=== PATIENT | female | born 1995 | race Caucasian/White ===

== ENCOUNTER → 2022-06-08 | Outpatient (CLI) | payer OTHER, SELFPAY ==
[2022-06-08 11:33] LABS: Amphetamine Urine VISTA NEGATIVE (<1000 ng/mL); Barbiturate Urine VISTA NEGATIVE (< 200 ng/mL); Benzodiazepine Urine VISTA NEGATIVE (< 200 ng/mL); Cocaine Urine VISTA NEGATIVE (< 300 ng/mL); Ecstacy Urine VISTA NEGATIVE (< 500 ng/mL); Methadone Urine VISTA NEGATIVE (< 300 ng/mL); PCP Urine VISTA NEGATIVE (< 25 ng/mL); THC Urine VISTA NEGATIVE (< 50 ng/mL); Vista UDS pH Range 7
[2022-06-09 21:07] LABS: Chlamydia By Nucleic Acid AMP Negative (Negative)
[2022-06-10 12:27] LABS: Gonococcus By Nucleic Acid AMP Negative (Negative)
[2022-06-14 17:34] LABS: HPV Reflexed? NOT INDICATED
== END | disposition home or self-care (01) ==
PROVIDERS: PCP Nurse Practitioner Family; Visit Provider Obstetrics & Gynecology
DX: Z34.00 Encounter for supervision of normal first pregnancy, unspecified trimester (principal)
CPT/HCPCS: 80307; 87086; 87491; 87591; 88175; G0145

== ENCOUNTER → 2022-07-04 | Outpatient (CLI) | payer OTHER, SELFPAY ==
[2022-07-04 16:02] LABS: Absolute Lymphocyte Count 1.95 X10^3/uL (0.83-4.51); Absolute Neutrophil Count 7.3 X10^3/uL (2.0-7.7); Basophil# 0.05 X10^3/uL; Basophil% 0.5 % (0-1); Eosinophil# 0.14 X10^3/uL; Eosinophils% 1.3 % (0-5); Hematocrit 34.9 % (37-47); Hemoglobin 12.4 g/dL (12.0-15.0); Lymphocyte # 1.95 X10^3/ul (0.83-4.51); Lymphocyte % 18.7 % (19-41); Mean Corp Hgb Conc 35.5 g/dL (32-36); Mean Corpuscular Hgb 32.9 pg (27.0-32.0); Mean Corpuscular Volume 92.6 fL (81-99); Mean Platelet Vol. 9.6 fl (6.2-12.0); Monocyte# 0.94 X10^3/uL; NRBC Flagged by Analyzer 0 % (0-5); Neutrophil # 7.32 X10^3/uL (2.7-7.7); Platelet Count 346 K/mm3 (150-450); RBC Distribution Width SD 43.5 fl (35.1-43.9); Red Blood Count 3.77 M/mm3 (4.2-5.4); White Blood Count 10.5 K/mm3 (4.4-11.0)
[2022-07-04 17:04] LABS: Bilirubin, Direct 0.26 mg/dL (0.00-0.30)
[2022-07-05 08:58] LABS: HIV - WCH Non-Reactive (Nonreactive); Hepatitis B Surface Antigen Non-Reactive (Nonreactive); Hepatitis C Antibody Non-Reactive (Nonreactive); Rubella IgG Reactive (Nonreactive); Syphilis Antibodies Non-reactive
== END | disposition home or self-care (01) ==
LOC: LAB 14:44
PROVIDERS: PCP Nurse Practitioner Family; Referring Provider Obstetrics & Gynecology; Visit Provider Obstetrics & Gynecology
DX: Z34.00 Encounter for supervision of normal first pregnancy, unspecified trimester (principal)
CPT/HCPCS: 36415; 82247; 82248; 85025; 86703; 86762; 86780; 86803; 86850; 86900; 86901; 87340

== ENCOUNTER → 2022-10-27 | Outpatient (CLI) | payer OTHER, SELFPAY ==
[2022-10-27 08:50] LABS: Absolute Lymphocyte Count 1.34 X10^3/uL (0.83-4.51); Absolute Neutrophil Count 7.5 X10^3/uL (2.0-7.7); Basophil# 0.03 X10^3/uL; Basophil% 0.3 % (0-1); Eosinophil# 0.07 X10^3/uL; Eosinophils% 0.7 % (0-5); Hematocrit 29.8 % (37-47); Hemoglobin 10.3 g/dL (12.0-15.0); Lymphocyte # 1.34 X10^3/ul (0.83-4.51); Lymphocyte % 13.5 % (19-41); Mean Corp Hgb Conc 34.6 g/dL (32-36); Mean Corpuscular Hgb 32.8 pg (27.0-32.0); Mean Corpuscular Volume 94.9 fL (81-99); Mean Platelet Vol. 9.4 fl (6.2-12.0); Monocyte# 0.74 X10^3/uL; Monocyte% 7.5 % (0-10); NRBC Flagged by Analyzer 0 % (0-5); Neutrophil # 7.53 X10^3/uL (2.7-7.7); Neutrophil % 76.1 % (47-70); Platelet Count 321 K/mm3 (150-450); RBC Distribution Width CV 13.2 % (11.6-14.6); RBC Distribution Width SD 44.5 fl (35.1-43.9); Red Blood Count 3.14 M/mm3 (4.2-5.4); White Blood Count 9.9 K/mm3 (4.4-11.0)
[2022-10-27 09:05] LABS: Glucose Challenge Gest 1H 50g 149 mg/dL (70-140)
[2022-10-27 09:39] LABS: HIV - WCH Non-Reactive (Nonreactive); Syphilis Antibodies Non-reactive
== END | disposition home or self-care (01) ==
LOC: PAVLAB 08:09
PROVIDERS: PCP Nurse Practitioner Family; Referring Provider Obstetrics & Gynecology; Visit Provider Obstetrics & Gynecology
DX: Z34.00 Encounter for supervision of normal first pregnancy, unspecified trimester (principal)
CPT/HCPCS: 36415; 82950; 85025; 86703; 86780

== ENCOUNTER → 2022-10-31 | Outpatient (CLI) | payer OTHER, SELFPAY ==
[2022-10-31 07:23] LABS: Glucose GTT-Gestation. Fasting 89 mg/dL (<105)
== END | disposition home or self-care (01) ==
LOC: LAB 06:50
PROVIDERS: PCP Nurse Practitioner Family; Referring Provider Nurse Practitioner Women's Health; Visit Provider Nurse Practitioner Women's Health
DX: Z13.1 Encounter for screening for diabetes mellitus (principal)
CPT/HCPCS: 36415; 82951; 82952

== ENCOUNTER → 2022-11-22 | Outpatient (CLI) | payer OTHER, SELFPAY ==
[2022-11-22 16:10] LABS: Absolute Lymphocyte Count 1.74 X10^3/uL (0.83-4.51); Basophil# 0.05 X10^3/uL; Basophil% 0.5 % (0-1); Eosinophil# 0.07 X10^3/uL; Eosinophils% 0.7 % (0-5); Hematocrit 33.8 % (37-47); Hemoglobin 11.1 g/dL (12.0-15.0); Lymphocyte # 1.74 X10^3/ul (0.83-4.51); Lymphocyte % 17.6 % (19-41); Mean Corp Hgb Conc 32.8 g/dL (32-36); Mean Corpuscular Hgb 31.5 pg (27.0-32.0); Mean Platelet Vol. 9.6 fl (6.2-12.0); Monocyte# 0.91 X10^3/uL; Monocyte% 9.2 % (0-10); NRBC Flagged by Analyzer 0 % (0-5); Neutrophil % 70.7 % (47-70); Platelet Count 293 K/mm3 (150-450); RBC Distribution Width CV 14.2 % (11.6-14.6); RBC Distribution Width SD 49.7 fl (35.1-43.9); Red Blood Count 3.52 M/mm3 (4.2-5.4); White Blood Count 9.9 K/mm3 (4.4-11.0)
== END | disposition home or self-care (01) ==
LOC: PAVLAB 15:45
PROVIDERS: PCP Nurse Practitioner Family; Referring Provider Nurse Practitioner Women's Health; Visit Provider Nurse Practitioner Women's Health
DX: O99.019 Anemia complicating pregnancy, unspecified trimester (principal)
CPT/HCPCS: 36415; 85025

== ENCOUNTER → 2022-12-20 | Outpatient (CLI) | payer OTHER, SELFPAY ==
--- NOTE | 2022-12-20 14:09 | US_ITS ---
STUDY: SECOND AND THIRD TRIMESTER OBSTETRICAL ULTRASOUND - LIMITED REASON FOR EXAM: Female, 27 years old growth -- 36 weeks LMP: April 11, 2022. PRIOR ULTRASOUND: None. TECHNIQUE: Transabdominal TECHNICAL QUALITY: Adequate. FINDINGS: There is a single intrauterine fetus. The fetus is in a cephalic presentation. There is demonstrated cardiac activity with a heart rate of 163 bpm. There is a normal amniotic fluid volume. The largest amniotic fluid pocket measures 5.8 cm. The amniotic fluid index (ZRUI) is 16.4 cm. The placenta is posterior in location and is not low lying. There are Grade 2 placental changes. The cervix was not measured due to the head positioning. BIOMETRY: BPD: 9.32 cm: 37 weeks, 6 days HC: 33.83 cm: 38 weeks, 6 days AC: 34 cm: 37 weeks, 6 days FL: 7.11 cm: 36 weeks, 3 days Age by LMP: 36 weeks, 1 days. PARAG by LMP: January 16, 2023. age by current US: 37 weeks, 5 days. PARAG by current US: January 05, 2023. Estimated weight: 3276 grams, +/- 491 grams, 87 percentile. US/OB Limited With Biometrics IMPRESSION: Single live uterine gestation with a mean gestational age of 37 weeks and 5 days. Electronically Signed: Michi Toney MD at 13:36 EDT ,
== END | disposition home or self-care (01) ==
PROVIDERS: PCP Nurse Practitioner Family; Referring Provider Advanced Practice Midwife; Visit Provider Advanced Practice Midwife
DX: O99.810 Abnormal glucose complicating pregnancy (principal); Z3A.00 Weeks of gestation of pregnancy not specified
CPT/HCPCS: 76816; 87077; 87081; 87186

== ENCOUNTER 2023-01-23 07:00 | Inpatient (IN) | payer OTHER, SELFPAY ==
[2023-01-23] VITALS (72 sets, daily range): BP systolic 115–168; BP diastolic 64–98; PULSE 63–108; TEMP 36.2–37.4; O2SAT 96–100; BMI 29.4
[2023-01-23] MEDS: Lactated Ringers 1,000 ML 50 ML IV (07:45)
[2023-01-23 07:57] LABS: Absolute Lymphocyte Count 1.56 X10^3/uL (0.83-4.51); Absolute Neutrophil Count 6.4 X10^3/uL (2.0-7.7); Basophil# 0.03 X10^3/uL; Basophil% 0.3 % (0-1); Eosinophil# 0.06 X10^3/uL; Eosinophils% 0.7 % (0-5); Hematocrit 33.6 % (37-47); Hemoglobin 11.1 g/dL (12.0-15.0); Lymphocyte # 1.56 X10^3/ul (0.83-4.51); Lymphocyte % 17.9 % (19-41); Mean Corpuscular Hgb 30.7 pg (27.0-32.0); Mean Corpuscular Volume 92.8 fL (81-99); Monocyte# 0.64 X10^3/uL; Monocyte% 7.3 % (0-10); NRBC Flagged by Analyzer 0 % (0-5); Neutrophil # 6.35 X10^3/uL (2.7-7.7); Neutrophil % 72.8 % (47-70); Platelet Count 251 K/mm3 (150-450); RBC Distribution Width CV 14.3 % (11.6-14.6); RBC Distribution Width SD 48.1 fl (35.1-43.9); Red Blood Count 3.62 M/mm3 (4.2-5.4); White Blood Count 8.7 K/mm3 (4.4-11.0)
--- NOTE | 2023-01-23 08:13 | HP.PCM.OB_ITS ---
HPI - General General Date of Admission: 01/23/23 HPI Narrative JIMMY ARELLANO, is a 27 F who presents at 41 weeks for IOL for postdates. course complicated by abnormal glucose screening with inability to tolerate 3 hour, tested glucose x2 weeks with normal glucose and fasting sugars again during 38 weeks with normal fastings. growth scan at 36 weeks demonstrated 87% EFW. GBS positive, PCN allergic, will treat with vancomycin. Maternal Data Information PARAG Calculator Estimated Delivery Date Method Current WG Current Estimate 01/16/23 LMP (Certain) 41w 0d Other Estimates 01/13/23 Ultrasound #1 41w 3d PFSH PFSH Medical History GBS (group B 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), +RV culture, currently Home Medications promethazine 12.5 mg tablet 12.5 mg PO Q6H PRN nausea and vomiting #60 tabs 05/24/22 [Rx Last Taken Unknown] PNV 178-FA 180 mcg-om3 35 mg-dha 25 mg-epa 5 mg-fish oil chew tablet tab PO 06/01/22 [History Last Taken Unknown] azithromycin 250 mg tablet (Zithromax Z-Aj) 250 mg PO DAILY 6 days #6 tabs 01/18/23 [Rx Last Taken Unknown] Allergy/AdvReac Type Severity Reaction Status Date / Time Penicillins Allergy Other Verified 01/18/23 09:10 amoxicillin [From Augmentin] AdvReac Unknown unknown Verified 01/18/23 09:10 clavulanic acid AdvReac Unknown unknown Verified 01/18/23 09:10 [From Augmentin] sulfamethoxazole AdvReac Unknown unknown Verified 01/18/23 09:10 [From Bactrim] terbinafine [From Lamisil] AdvReac Unknown unknown Verified 01/18/23 09:10 trimethoprim [From Bactrim] AdvReac Unknown unknown Verified 01/18/23 09:10 Surgical History Hx of tonsillectomy Social History adopted: No household members: spouse housing: house current occupational status: employed 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 current occupational exposures/hazards: No pets and animals: Yes pets and animals: dog(s) history of recent travel: No sexually active: Yes Smoking Status: Never smoker alcohol intake: never substance use type: does not use well-balanced diet: daily or most days caffeine: Yes Type: coffee Number of servings: 1 eating out: 1-3 times/week during the past year weight has: remained stable what type of physical activity do you participate in: walking frequency: 3-4 times per week duration: 15-30 minutes/day [place]/church: Religious seatbelt use: always do you feel safe at home: Yes 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 History 1 Elective abortions Hx Para 0 Spontaneous abortions Hx # Term Pregnancies Ectopic pregnancies Hx # Pregnancies Multiple births # of living children Visit Details Expected Delivery Route/Plan by 41 Labor Preferences- CB/BF classes: encouraged- in november labor support person: Sudheer labor intervention preferences: [] pain management options preferred: epidural cut cord/dad catch: Yes : Yes PP control planned: discussed discussed possible routes of delivery and associated risks: [] special requests: [] Plans Covid status:discussed Flu vaccine: discussed Tdap vaccine: given Rhogam: na LARC form signed: yes movement and labor precautions reviewed. Problem list reviewed and updated with the most current plan of care details and appropriate orders placed. Relevant counseling for the gestational age provided. Continue routine care and follow up unless otherwise noted in visit notes/problem list details OB Flowsheet Initial Weight: Not Recorded Date -?-?-?-?-?-?-?-?-?-?-?-?- EGA Weight BP Urine Prot -?-?-?-?-?-?-?-?-?-?-?-?- Glucose FHR FuHt Pres Dilation -?-?-?-?-?-?-?-?-?-?-?-?- Effaced St Visit Note 06/08/22 -?-?-?-?-?-?-?-?-?-?-?-?- 8w 2d 151 lb 123/79 -?-?-?-?-?-?-?-?-?-?-?-?- -?-?-?-?-?-?-?-?-?-?-?-?- JV- CRL consiste nt with LMP. 07/04/22 -?-?-?-?-?-?-?-?-?-?-?-?- 12w 0d 159 lb 6 oz 114/72 Nega tive -?-?-?-?-?-?-?-?-?-?-?-?- Negative 160 -?-?-?-?-?-?-?-?-?-?-?-?- LC- feeling bett er. no vb/cramping. to obtain NOB labs today. declines afp after discussion. 08/03/22 -?-?-?-?-?-?-?-?-?-?-?-?- 16w 2d 161 lb 116/74 Negative -?-?-?-?-?-?-?-?-?-?-?-?- Negative 155 -?-?-?-?-?-?-?-?-?-?-?-?- JV-no lof, vagin al bleeding, or cramping. normal labs 09/05/22 -?-?-?-?-?-?-?-?-?--?-?-?- 21w 0d 163 lb 8 oz 110/68 Nega tive -?-?-?-?-?-?-?-?-?-?-?-?- Negative 151 -?-?-?-?-?-?-?-?-?-?-?-?- MH-No VB. Jatin Godfrey. Has MFM US today 10/03/22 -?-?-?-?-?-?-?-?-?-?-?-?- 25w 0d 172 lb 6 oz 124/80 Nega tive -?-?-?-?-?-?-?-?-?-?-?-?- Negative 145 -?-?-?-?-?-?-?-?-?-?-?-?- SM- no vb lof go od fm n oreular ctx 10/27/22 -?-?-?-?-?-?-?-?-?-?-?-?- 28w 3d 173 lb 4 oz 102/70 Nega tive -?-?-?-?-?-?-?-?-?-?-?-?- Negative 148 29 -?-?-?-?-?-?-?-?-?-?-?-?- MH-No Vb, LOF. G ood FM. Needs 3 hr GTT, add FE daily. Larc, tdap 11/09/22 -?-?-?-?-?-?-?-?-?-?-?-?- 30w 2d 177 lb 4 oz 117/77 Nega tive -?-?-?-?-?-?-?-?-?-?-?-?- Negative 140 32 -?-?-?-?-?-?-?-?-?-?-?-?- KW +FM. No lof/v b/ctx. FMLA papers given to cloth spreader screen printing. Blood sugars reviewed and discussed with JV. Plan to do fasting BS for next week. discussed GBS 11/22/22 -?-?-?-?-?-?-?-?-?-?-?-?- 32w 1d 178 lb 4 oz 121/77 Nega tive -?-?-?-?-?-?-?-?-?-?-?-?- Negative 153 33 -?-?-?-?-?-?-?-?-?-?-?-?- -No VB, LOF. G ood FM. No CTX. 12/07/22 -?-?-?-?-?-?-?-?-?-?-?-?- 34w 2d 185 lb 8 oz 121/78 Nega tive -?-?-?-?-?-?-?-?-?-?-?-?- Negative 155 34 -?-?-?-?-?-?-?-?-?-?-?-?- JV- no lof, vagi nal bleeding. or dec fm. no complaints. growth scan next visit 12/20/22 -?-?-?-?-?-?-?-?-?-?-?-?- 36w 1d 193 lb 2 oz 120/80 Nega tive -?-?-?-?-?-?-?-?-?-?-?-?- Negative 131 35 Cephalic 1 -?-?-?-?-?-?-?-?-?-?-?-?- 70 -2 JV- growth scan today. gbs collected. no complaints. 12/28/22 -?-?-?-?-?-?-?-?-?-?-?-?- 37w 2d 190 lb 126/82 Negative -?-?-?-?-?-?-?-?-?-?-?-?- Negative 130 38 Cephalic 1 .5 -?-?-?-?-?-?-?-?-?-?-?-?- 70 - KW- +FM, n o vb/lof/ctx. Growth scan at 87%. GBs pos KW- +FM, no vb/lof/ctx. Grow th scan at 87%. GBs pos. labor precautions 01/03/23 -?-?-?-?-?-?-?-?-?-?-?-?- 38w 1d 191 lb 6 oz 131/83 Nega tive -?-?-?-?-?-?-?-?-?-?-?-?- Negative 145 38 Cephalic 1 .5 -?-?-?-?-?-?-?-?-?-?-?-?- 70 - SM- reivew ed BS readings taken a few weeks ago, discussed checking them again this week due to higher EFW. 01/09/23 -?-?-?-?-?-?-?-?-?-?-?-?- 39w 0d 194 lb 4 oz 123/83 Nega tive -?-?-?-?-?-?-?-?-?-?-?-?- Negative 140 40 Cephalic 1 .5 -?-?-?-?-?-?-?-?-?-?-?-?- 70 -2 SM- no vb lof good fm no regular ctx 01/18/23 -?-?-?-?-?-?-?-?-?-?-?-?- 40w 2d 190 lb 4 oz 123/82 [facility] e -?-?-?-?-?-?-?-?-?--?-?-?- Negative 145 40 Cephalic 1 .5 -?-?-?-?-?-?-?-?-?-?-?-?- 80 -2 JV- IOL se t up for next monday. no lof, vaginal bleeding or dec fm. but has has sinus infection. likely viral but will start z-pack due to incr risk of secondary bacterial infection that could happen when goes to hospital for labor ROS Cardiovascular Cardiovascular: Denies abdominal pain, chest pain, diaphoresis or dyspnea Respiratory/Chest Respiratory/Chest: Denies change in mental status, chest congestion, chest tightness, cough, shortness of breath at rest, shortness of breath with exertion, breast mass, breast pain, breast skin changes, breast swelling, change in breast shape or nipple discharge Genitourinary Genitourinary: Reports change in urinary stream Musculoskeletal Musculoskeletal: Reports none Integumentary Integumentary: Reports none Neurologic Neurologic: Reports none Psychiatric Psychiatric: Reports none Endocrine Endocrinology: Reports none Hematologic/Lymphatic Hematologic/Lymphatic: Reports none Allergic/Immunologic Allergic/Immunologic: Reports none Vital Signs Vital Signs Vital Signs: 01/23/23 07:29 01/23/23 07:29 01/23/23 07:29 Temperature Temperature Source Temporal Pulse Rate 86 Blood Pressure 135/85 H BP Systolic 135 BP Diastolic 85 01/23/23 07:29 Temperature 97.4 F L Temperature Source Pulse Rate Blood Pressure BP Systolic BP Diastolic Weight Weight: 188 lb Body Mass Index (BMI) 29.4 Physical Exam Const alert, oriented x3 and no apparent distress General Appearance: cooperative, comfortable and well kempt Orientation / Consciousness: awake and oriented to person Exam Limitations: no limitations HEENT normocephalic Neck full ROM Chest inspection of chest normal Resp normal respiratory effort, normal air movement and no retractions Effort and Inspection: able to speak in complete sentences and symmetric chest movement Cardio regular rate Peripheral Pulses: pulses 2+ throughout GI normal to inspection, nondistended, normoactive bowel sounds Inspection: gravid no CVA tenderness and appearance of the vagina normal External Female Exam: normal appearance of the urethra; Negative for external lesion OB / External & Speculum: external exam normal Manual OB Exam: estimated gestational size appropriate and presentation cephalic Uterus Palpation: Negative for uterus tender Extremity normal to inspection Skin no rashes or lesions noted Psych Activity / Motor Behavior: appropriate eye contact Speech: normal speech Labs Labs Labs: Blood Type O POSITIVE Antibody Screen NEGATIVE Hct 33.6 % (37-47) L Hgb 11.1 g/dL (12.0-15.0) L Obstetrics US Syphilis Total Ab Non-reactive Rubella IgG Antibody Reactive (Nonreactive) Hep Bs Antigen Non-Reactive (Nonreactive) Chlamydia DNA (JOSE J) Negative (Negative) Neisseria gonorrhoeae DNA (JOSE J) Negative (Negative) HIV 1&2 Antibody Non-Reactive (Nonreactive) Glucose 1 Hr 50 gm 149 mg/dL (70-140) H Assessment & Plan (1) GBS (group B 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), +RV culture, currently : COMMENT: treat with Vancomycin at delivery (2) Abnormal glucose affecting : COMMENT: BS done at home due to throwing up 3 hour gtt. She tracked for 2 weeks, fastings in the 80s and 2 hours after eating mostly under the 120s. growth us at 36 weeks-87% (3) Anemia during : COMMENT: add FE. Recheck CBC 4 weeks:improved (4) Supervision of normal first : COMMENT: [id number], PARAG 01/16/23, boy [place] Spouse Sudheer (5) : QUALIFIERS: Weeks of gestation: 40 weeks Qualified Code(s): Z3A.40 - 40 weeks gestation of COMMENT: anatomy nl, declined afp NIPT & Carrier testing (6) Encounter for induction of labor: COMMENT: IOL for postdates. 1.5/-3 pitocin and saenz bulb PLAN: Dr. Gay updated on admission, exam and POC. agrees with primary midwifery management for postdates IOL, available for consultation /collaboration.
[2023-01-23] MEDS: Oxytocin 15 Units/NS 250ml 15 UNITS/250 ML IV.SOLN 2 UNITS IV (08:34)
[2023-01-23] MEDS: 0.9% Normal Saline Single 100 ML IV.SOLN. INTRA-UTER (08:34)
[2023-01-23 08:39] LABS: Syphilis Antibodies Non-reactive
[2023-01-23] MEDS: DiphenhydrAMINE 50 MG/ML Syringe 25 MG IV (11:15)
[2023-01-23] MEDS: 0.9% Saline Lock 10 ML Syringe IV ×2 (14:14→19:36)
[2023-01-23] MEDS: LACTATED RINGERS 500 ML 999 ML IV (14:14)
[2023-01-23] MEDS: fentaNYL-bupivacaine (epidural) 100 ML BAG EPIDURAL ×2 (15:44→20:22)
--- NOTE | 2023-01-23 18:47 | NURSING ---
upon observation, this RN recognized that the Vancomycin infusion was not running, this RN opened the roller clamp and observed dripping in the chamber. In the MAR, it appears that the infusion is complete but it is not and this RN will inform oncoming RN to complete Vancomycin in MAR when appropriate but the medication was only administered over approx 3 hrs starting at approx 1845
[2023-01-23] MEDS: Ondansetron 4 MG/2 ML Vial IV (19:36)
[2023-01-23] MEDS: Oxytocin 10 UNITS/ML Vial IM (21:50)
[2023-01-23] MEDS: Oxytocin 15 Units/NS 250ml 15 UNITS/250 ML IV.SOLN 83 UNITS IV (21:51)
--- NOTE | 2023-01-23 22:06 | EX.PCM.OBRPT ---
Assessment & Plan (1) (spontaneous vaginal delivery): COMMENT: IOL postdates at 41. . boy: PLAN: s/p PPD #DD 1. routine post delivery care 2. breast feeding- support given 3. rh positive 4. rubella immune Maternal Data Information PARAG Calculator Estimated Delivery Date Method Current WG Current Estimate 01/16/23 LMP (Certain) 41w 0d Other Estimates 01/13/23 Ultrasound #1 41w 3d Final PARAG: 02/13/23 Final PARAG Source: LMP Gestational age: 41 Vaginal Delivery Maternal Presentation Maternal Presentation: Medically Indicated Induction Type of Induction: Pitocin and Seals Bulb Medical Reason for Induction: - (postdates . 41 weeks) Operative Information Date of Procedure: 01/23/23 Pre-Operative Diagnosis: see problem list Post-Operative Diagnosis: Surgery / Procedure Performed: Spontaneous Vaginal Delivery Type of Anesthesia: Epidural Drain: Seals to straight drain Estimated Blood Loss: 200 Time of Delivery: 21:38 Findings Description of Procedure: Patient began pushing and delivered the head in the OA presentation. The head was delivered atraumatically. The anterior and posterior shoulders delivered without complication followed by the rest of the and the was placed on the maternal abdomen. Delayed cord clamping was employed for approximately 6minutes. Cord was clamped and cut and gentle traction was applied to the cord and the placenta delivered spontaneously immediately following it was noted to be intact with three-vessel cord. The perineum and vagina were inspected and noted to have right labial laceration, repaired with 3-0 SH vicyrl running stitch, good hemostasis achieved. EBL was 200cc. Patient and infant tolerated delivery well. Presentation: Vertex Amniotic Membrane Rupture Type: Artificial Amniotic Fluid Description: Clear Placental Delivery Description: Spontaneous Placenta Disposition: [facility] Cord Vessel Description: 3 Vessels Cord Entanglement: None Infant A Gender: Male (1 minute): 8 (5 minute): 9 Delayed Cord Clamping: Yes Post Vaginal Delivery Medications Given After Delivery: IV Pitocin and IM Pitocin Episiotomy Description: None Laceration: Periurethral Extnsion/lac (labial laceration) Addendum Addendum: CNM delivery
--- NOTE | 2023-01-23 22:20 | DCINST_ITS ---
Discharge Instructions Diet Discharge Diet: No restrictions Activity Discharge Activity: May Not Drive and May Shower May resume sexual activity in: 6 weeks Weight Bearing Status: Full weight bearing Dressing / Incision Call your doctor if your incision/area has: Sudden Increased Bleeding, Increased Pain/ Swelling and Foul Smelling Discharge Call your doctor if you observe: Fever of 101 or Higher, Numbness or Tingling, Change in Color, Inability to urinate, Inability to have a bowel movement, Using more than 1 pad per hour, Shortness of breath, Dizziness, Fainting spells, Chest pain, Calf discomfort and Uncontrolled pain Follow Up Care Please Follow Up With: Payal Hutchins CNM When: 6 weeks , please call office to make an appointment. Congratulations on the of your baby boy!!! Test Results: Test results from this visit will be discussed in further detail at your follow- up appointment, if applicable. Discharge Plan Admission Admit Date/Time: 01/23/23 07:00 Attending Provider: Payal Hutchins Primary Care Provider: Jennifer Hurst NP Discharge Orders/Prescriptions Prescriptions: No Action PNV no.[id number] 180 mcg-35 mg- 25 mg-5 mg tablet,chewable 1 tab PO DAILY azithromycin [Zithromax Z-Aj] 250 mg tablet 250 mg PO DAILY 6 Days Qty: 6 0RF Rx Instructions: start on day 2 of therapy ferrous sulfate [iron] 325 mg (65 mg iron) Tablet 325 mg PO DAILY Referrals / Follow Up: Jennifer Hurst NP, [facility] [Primary Care Provider] - Disposition Disposition (needs filled in before D/C Order can be placed): Home, Self Care
[2023-01-24] VITALS (8 sets, daily range): BP systolic 115–145; BP diastolic 65–87; PULSE 60–98; RESP 16–18; TEMP 36.4–36.8; O2SAT 98–99
[2023-01-24 05:47] LABS: Bedside Glucose 86 mg/dL (74-106)
--- NOTE | 2023-01-24 12:22 | PCM.PN.OB ---
Subjective Subjective Patient doing well without complaints. Tolerating PO. Ambulating and voiding without difficulty. Feeding well. Denies chest pain, shortness of breath, calf pain/swelling, fevers, chills, lightheadedness. Objective Data Objective Data Vital Signs: Vital Signs Temp Pulse Resp BP Pulse Ox O2 Del Method 97.7 F L 81 16 115/69 99 Room Air 01/24/23 08:07 01/24/23 08:07 01/24/23 08:07 01/24/23 08:07 01/24/23 03:48 01/24/23 08:07 Oxygen Delivery Method Room Air Weight: 188 lb Body Mass Index (BMI) 29.4 Intake & Output: Intake and Output for Last 24 Hours 01/22/23 01/23/23 01/24/23 23:59 23:59 23:59 Intake Total 2699.46 / 2699.46 250 / 250 Output Total 200 / 200 800 / 800 Balance 2499.46 / 2499.46 -550 / -550 Lab / Micro Data Attestation: I reviewed the patient's lab results. Result Diagrams: 01/23/23 07:45 Labs: Laboratory Results - last 24 hr 01/24/23 05:29: POC Glucose 86 ROS Constitutional Constitutional: Reports systems reviewed and no addt'l complaints, except as documented; Denies anorexia or headache(s) Cardiovascular Cardiovascular: Reports systems reviewed and no addt'l complaints, except as documented; Denies dizziness, dyspnea, nausea or tachypnea Respiratory/Chest Respiratory/Chest: Reports systems reviewed and no addt'l complaints, except as documented; Denies cough, dyspnea, shortness of breath at rest or tachypnea Gastrointestinal Gastrointestinal: Reports systems reviewed and no addt'l complaints, except as documented; Denies abdominal pain, constipation or nausea Genitourinary Genitourinary: Reports systems reviewed and no addt'l complaints, except as documented; Denies burning urination, difficulty urinating, dysuria, urinary frequency or urinary incontinence Musculoskeletal Musculoskeletal: Reports systems reviewed and no addt'l complaints, except as documented Integumentary Integumentary: Reports systems reviewed and no addt'l complaints, except as documented Neurologic Neurologic: Reports systems reviewed and no addt'l complaints, except as documented; Denies abnormal speech, dizziness or headache(s) Psychiatric Psychiatric: Reports systems reviewed and no addt'l complaints, except as documented Endocrine Endocrinology: Reports systems reviewed and no addt'l complaints, except as documented Hematologic/Lymphatic Hematologic/Lymphatic: Reports systems reviewed and no addt'l complaints, except as documented Physical Exam Const alert, oriented x3 and no apparent distress Neck full ROM Resp normal respiratory effort, normal air movement and no retractions Effort and Inspection: able to speak in complete sentences and symmetric chest movement GI soft to palpation Bladder / Kidney Exam: bladder normal to palpation Extremity normal to inspection and full ROM Psych mental status grossly normal, thought process normal and cooperative Assessment & Plan (1) (spontaneous vaginal delivery): COMMENT: IOL postdates at 41. . boy: yann. PLAN: s/p PPD # 1 1. routine post delivery care 2. breast feeding- support given 3. rh positive 4. rubella immune (2) Encounter for induction of labor: COMMENT: IOL for postdates. 1.5/80/-3 pitocin and saenz bulb (3) Abnormal glucose affecting : COMMENT: BS done at home due to throwing up 3 hour gtt. She tracked for 2 weeks, fastings in the 80s and 2 hours after eating mostly under the 120s. growth us at 36 weeks-87% Charges/Coding Multi Select Codes Urinary/Genital Urinary/Genital CPT Codes: No Charge
[2023-01-25 02:31] VITALS: BP 126/87; PULSE 67; RESP 15; TEMP 36.7
--- NOTE | 2023-01-25 08:45 | PCM.PN.OB ---
Subjective Subjective Patient doing well without complaints. Tolerating PO. Ambulating and voiding without difficulty. Feeding well. Denies chest pain, shortness of breath, calf pain/swelling, fevers, chills, lightheadedness. Objective Data Objective Data Vital Signs: Vital Signs Temp Pulse Resp BP Pulse Ox O2 Del Method 98.0 F 67 15 126/87 H 99 Room Air 01/25/23 02:31 01/25/23 02:31 01/25/23 02:31 01/25/23 02:31 01/24/23 03:48 01/25/23 02:31 Oxygen Delivery Method Room Air Weight: 188 lb Body Mass Index (BMI) 29.4 Intake & Output: Intake and Output for Last 24 Hours 01/23/23 01/24/23 01/25/23 23:59 23:59 23:59 Intake Total 2699.46 / 2699.46 250 / 250 Output Total 200 / 200 800 / 800 Balance 2499.46 / 2499.46 -550 / -550 Lab / Micro Data Attestation: I reviewed the patient's lab results. Result Diagrams: 01/23/23 07:45 ROS Constitutional Constitutional: Reports systems reviewed and no addt'l complaints, except as documented; Denies anorexia or headache(s) Cardiovascular Cardiovascular: Reports systems reviewed and no addt'l complaints, except as documented; Denies dizziness, dyspnea, nausea or tachypnea Respiratory/Chest Respiratory/Chest: Reports systems reviewed and no addt'l complaints, except as documented; Denies cough, dyspnea, shortness of breath at rest or tachypnea Gastrointestinal Gastrointestinal: Reports systems reviewed and no addt'l complaints, except as documented; Denies abdominal pain, constipation or nausea Genitourinary Genitourinary: Reports systems reviewed and no addt'l complaints, except as documented; Denies burning urination, difficulty urinating, dysuria, urinary frequency or urinary incontinence Musculoskeletal Musculoskeletal: Reports systems reviewed and no addt'l complaints, except as documented Integumentary Integumentary: Reports systems reviewed and no addt'l complaints, except as documented Neurologic Neurologic: Reports systems reviewed and no addt'l complaints, except as documented; Denies abnormal speech, dizziness or headache(s) Psychiatric Psychiatric: Reports systems reviewed and no addt'l complaints, except as documented Endocrine Endocrinology: Reports systems reviewed and no addt'l complaints, except as documented Hematologic/Lymphatic Hematologic/Lymphatic: Reports systems reviewed and no addt'l complaints, except as documented Physical Exam Const alert, oriented x3 and no apparent distress Neck full ROM Chest inspection of breasts normal Nipple/Areola: nipples/areola normal Resp normal respiratory effort, normal air movement and no retractions Effort and Inspection: able to speak in complete sentences and symmetric chest movement GI soft to palpation Bladder / Kidney Exam: bladder normal to palpation Uterus Palpation: uterus fundus firm (U) Extremity normal to inspection and full ROM Psych mental status grossly normal, thought process normal and cooperative Assessment & Plan (1) (spontaneous vaginal delivery): COMMENT: IOL postdates at 41. . boy: yann. PLAN: s/p PPD # 2 1. routine post delivery care 2. breast feeding- support given 3. rh positive 4. rubella immune 5. Discharge home (2) Abnormal glucose affecting : COMMENT: BS done at home due to throwing up 3 hour gtt. She tracked for 2 weeks, fastings in the 80s and 2 hours after eating mostly under the 120s. growth us at 36 weeks-87% (3) Anemia during : COMMENT: add FE. Recheck CBC 4 weeks:improved (4) Supervision of normal first : COMMENT: [id number], PARAG 01/16/23, boy Yann Spouse Sudheer Charges/Coding Multi Select Codes Urinary/Genital Urinary/Genital CPT Codes: No Charge
--- NOTE | 2023-01-25 08:47 | PCM.DC ---
Discharge Instructions Diet Discharge Diet: No restrictions Activity May resume sexual activity in: 6 weeks Weight Bearing Status: Full weight bearing Dressing / Incision Call your doctor if your incision/area has: Sudden Increased Bleeding, Increased Pain/ Swelling and Foul Smelling Discharge Call your doctor if you observe: Fever of 101 or Higher, Numbness or Tingling, Change in Color, Inability to urinate, Inability to have a bowel movement, Using more than 1 pad per hour, Shortness of breath, Dizziness, Fainting spells, Chest pain, Calf discomfort and Uncontrolled pain Follow Up Care Please Follow Up With: Payal Hutchins CNM Test Results: Test results from this visit will be discussed in further detail at your follow-up appointment, if applicable. Discharge Plan Admission Admit Date/Time: 01/23/23 07:00 Attending Provider: Payal Hutchins Primary Care Provider: Jennifer Hurst NP Discharge Orders/Prescriptions Prescriptions: No Action PNV [id number] 180 mcg-35 mg- 25 mg-5 mg tablet,chewable 1 tab PO DAILY azithromycin [Zithromax Z-Aj] 250 mg tablet 250 mg PO DAILY 6 Days Qty: 6 0RF Rx Instructions: start on day 2 of therapy ferrous sulfate [iron] 325 mg (65 mg iron) Tablet 325 mg PO DAILY Referrals / Follow Up: Jennifer Hurst NP, [employer] [Primary Care Provider] - Disposition Disposition (needs filled in before D/C Order can be placed): Home, Self Care
[2023-01-25 08:54] VITALS: BP 123/78; PULSE 67; RESP 18; TEMP 37.1; O2SAT 96
== END 2023-01-25 11:10 | disposition home or self-care (01) | DRG 807 ==
PROVIDERS: Obstetrics & Gynecology; Admitting Provider Registered Nurse; PCP Nurse Practitioner Family; Visit Provider Registered Nurse
DX: O48.0 Post-term pregnancy (principal); Z37.0 Single live birth; O70.0 First degree perineal laceration during delivery; O99.824 Streptococcus B carrier state complicating childbirth; Z3A.41 41 weeks gestation of pregnancy; Z88.0 Allergy status to penicillin
CPT/HCPCS: 59025; 59050; 82962; 85025; 86780; 86850; 86900; 86901; 99221; J7040; J7120; A4216; G0378; J2405

== ENCOUNTER → 2023-06-29 | Outpatient (CLI) | payer OTHER, SELFPAY ==
[2023-06-29 17:34] LABS: Absolute Lymphocyte Count 2.73 X10^3/uL (0.83-4.51); Absolute Neutrophil Count 3.4 X10^3/uL (2.0-7.7); Basophil# 0.08 X10^3/uL; Basophil% 1.1 % (0-1); Eosinophil# 0.39 X10^3/uL; Eosinophils% 5.4 % (0-5); Hematocrit 39.9 % (37-47); Hemoglobin 13.3 g/dL (12.0-15.0); Lymphocyte # 2.73 X10^3/ul (0.83-4.51); Lymphocyte % 37.7 % (19-41); Mean Corp Hgb Conc 33.3 g/dL (32-36); Mean Corpuscular Hgb 30.2 pg (27.0-32.0); Mean Corpuscular Volume 90.7 fL (81-99); Mean Platelet Vol. 9.1 fl (6.2-12.0); Monocyte# 0.62 X10^3/uL; Monocyte% 8.6 % (0-10); NRBC Flagged by Analyzer 0 % (0-5); Neutrophil % 46.9 % (47-70); Platelet Count 404 K/mm3 (150-450); RBC Distribution Width CV 12.2 % (11.6-14.6); RBC Distribution Width SD 40.7 fl (35.1-43.9); White Blood Count 7.2 K/mm3 (4.4-11.0)
[2023-06-29 17:50] LABS: T3 Total - Triiodothyronine 1.35 ng/mL (0.6-1.81)
[2023-06-29 18:19] LABS: ALB/GLOB Ratio 1.1 RATIO (0.9-2.4); AST(SGOT) 9 U/L (15-37); Alanine Aminotransfer ALT/SGPT 18 U/L (13-56); Albumin, Serum 3.8 g/dL (3.2-5.0); Alkaline Phosphatase 106 U/L (45-117); Anion Gap 6 (5-15); BUN 13 mg/dL (7-18); BUN/Creat Ratio 17.8 RATIO (10-20); Chloride 106 mmol/L (98-107); Creatinine, Serum 0.73 mg/dL (0.55-1.02); EST Glomerular Filtration Rate 101 mL/min (>60); Est Glom Filt Rate - Afr Amer 122 mL/min (>60); Ferritin 25 ng/mL (8-252); Globulin 3.6 g/dL (2.2-4.2); Glucose 89 mg/dL (74-106); Potassium 3.6 mmol/L (3.5-5.1); Protein, Total 7.4 g/dL (6.4-8.2); Sodium Level 140 mmol/L (136-145); T4 Total, Thyroxin 8.9 ug/dL (4.8-13.9); Thyroid Stim Hormone (TSH) 1.55 uIU/mL (0.358-3.74)
[2023-07-01 04:07] LABS: Thyroid Peroxidase AB < 9 IU/mL (0-34)
[2023-07-03 15:08] LABS: Anti-Nuclear Antibody Test Negative (.)
== END | disposition home or self-care (01) ==
LOC: MTLAB 16:28
PROVIDERS: PCP Nurse Practitioner Family; Referring Provider Dermatology Pediatric Dermatology; Visit Provider Dermatology Pediatric Dermatology
DX: E04.1 Nontoxic single thyroid nodule (principal); L65.0 Telogen effluvium
CPT/HCPCS: 36415; 80053; 82728; 84436; 84443; 84480; 85025; 86038; 86376

== ENCOUNTER → 2024-10-04 | Outpatient (CLI) | payer OTHER, SELFPAY ==
[2024-10-04 16:13] LABS: Absolute Lymphocyte Count 2.15 X10^3/uL (0.83-4.51); Absolute Neutrophil Count 10.2 X10^3/uL (2.0-7.7); Basophil# 0.06 X10^3/uL; Basophil% 0.4 % (0-1); Eosinophil# 0.09 X10^3/uL; Eosinophils% 0.7 % (0-5); Hematocrit 36.7 % (37-47); Hemoglobin 12.6 g/dL (12.0-15.0); Lymphocyte # 2.15 X10^3/ul (0.83-4.51); Lymphocyte % 15.8 % (19-41); Mean Corp Hgb Conc 34.3 g/dL (32-36); Mean Corpuscular Hgb 31.3 pg (27.0-32.0); Mean Corpuscular Volume 91.3 fL (81-99); Mean Platelet Vol. 9.6 fl (6.2-12.0); Monocyte# 1.01 X10^3/uL; Monocyte% 7.4 % (0-10); NRBC Flagged by Analyzer 0 % (0-5); Neutrophil # 10.21 X10^3/uL (2.7-7.7); Platelet Count 389 K/mm3 (150-450); RBC Distribution Width CV 12.3 % (11.6-14.6); RBC Distribution Width SD 41.1 fl (35.1-43.9); Red Blood Count 4.02 M/mm3 (4.2-5.4); White Blood Count 13.6 K/mm3 (4.4-11.0)
[2024-10-04 17:19] LABS: Hepatitis B Surface Antigen Non-Reactive (Nonreactive); Hepatitis C Antibody Non-Reactive (Nonreactive); Rubella IgG Reactive (Nonreactive); Syphilis Antibodies Non-reactive
[2024-10-07 19:08] LABS: Chlamydia By Nucleic Acid AMP Negative (Negative); Gonococcus By Nucleic Acid AMP Negative (Negative)
[2024-10-08 16:15] LABS: HIV - WCH Non-Reactive (Nonreactive)
[2024-10-10 08:56] LABS: HPV Reflexed? NOT INDICATED
== END | disposition home or self-care (01) ==
PROVIDERS: PCP Nurse Practitioner Family; Referring Provider Advanced Practice Midwife; Visit Provider Advanced Practice Midwife
DX: Z34.90 Encounter for supervision of normal pregnancy, unspecified, unspecified trimester (principal)
CPT/HCPCS: 36415; 85025; 86703; 86762; 86780; 86803; 86850; 86900; 86901; 87086; 87340; 87491; 87591; 88175; G0145

== ENCOUNTER → 2024-11-26 | Outpatient (CLI) | payer OTHER, SELFPAY ==
--- NOTE | 2024-11-26 14:00 | FLU_PTH ---
PATIENT: JIMMY ARELLANO LOC: [facility] U#:[id number] AGE/SX: 29/F ROOM: RE11/26/[address]: Dr. Ravinder Suazo MD : 1995 BED: DIS: 11/26/2024 SPEC #: [id number] RECD: 11/26/24 15:05 STATUS: CARLOS PRINCESS #: [id number] EFREM: 11/26/24 14:[address]: Ravinder Suazo DEPT: CYTOLOGY RECD BY: Liv Briones ENTERED: 11/27/24 08:43 SP TYPE: Fluid OTHR DR: Jennifer Hurst, KRISTEN-C Tissues: A - Thyroid gland, NOS Procedures: Special Stain Group II Surgery Specimen Level IV Cytospin Fluid HEADER OPERATION: Fine needle aspiration of right thyroid nodule PRE-OP DIAGNOSIS: Right thyroid nodule TISSUE SUBMITTED: A- Right thyroid nodule DIAGNOSIS CYTOLOGY A. Right thyroid nodule, FNA: * No malignant cells are identified * Benign follicular cells (benign follicular nodule) CYTOLOGY STUDY Slides are reviewed. CYTOLOGY GROSS A. Received is 30 ml of fluid and 4 slides labeled with the patient's name and and designated per the requisition as Right thyroid nodule. Submitted for cytology preparation. Mr 11/27/2024 CPT: 22363
== END | disposition home or self-care (01) ==
LOC: LABSPEC 15:15
PROVIDERS: PCP Nurse Practitioner Family; Referring Provider Surgery; Visit Provider Surgery
DX: E04.1 Nontoxic single thyroid nodule (principal)
CPT/HCPCS: 88108; 88305; 88313

== ENCOUNTER → 2025-01-29 | Outpatient (CLI) | payer OTHER, SELFPAY ==
[2025-01-29 16:27] LABS: Absolute Neutrophil Count 8.3 X10^3/uL (2.0-7.7); Basophil# 0.04 X10^3/uL; Basophil% 0.4 % (0-1); Eosinophil# 0.12 X10^3/uL; Eosinophils% 1.1 % (0-5); Hematocrit 31.4 % (37-47); Hemoglobin 10.9 g/dL (12.0-15.0); Lymphocyte % 16.1 % (19-41); Mean Corp Hgb Conc 34.7 g/dL (32-36); Mean Corpuscular Hgb 32.9 pg (27.0-32.0); Mean Corpuscular Volume 94.9 fL (81-99); Mean Platelet Vol. 9.7 fl (6.2-12.0); Monocyte% 7.2 % (0-10); NRBC Flagged by Analyzer 0 % (0-5); Neutrophil # 8.25 X10^3/uL (2.7-7.7); Neutrophil % 73.9 % (47-70); Platelet Count 375 K/mm3 (150-450); RBC Distribution Width CV 13.2 % (11.6-14.6); RBC Distribution Width SD 45.6 fl (35.1-43.9); Red Blood Count 3.31 M/mm3 (4.2-5.4); White Blood Count 11.2 K/mm3 (4.4-11.0)
[2025-01-29 17:51] LABS: Glucose Challenge Gest 1H 50g 116 mg/dL (70-140); HIV Nonreactive (Nonreactive); Syphilis Antibodies Nonreactive (Nonreactive)
[2025-01-31 10:09] LABS: Lead, Blood Adult 16+yrs < 1.0 ug/dL (0.0-3.4)
== END | disposition home or self-care (01) ==
PROVIDERS: Advanced Practice Midwife; Obstetrics & Gynecology; PCP Nurse Practitioner Family; Referring Provider Obstetrics & Gynecology; Visit Provider Obstetrics & Gynecology
DX: Z34.90 Encounter for supervision of normal pregnancy, unspecified, unspecified trimester (principal); Z13.88 Encounter for screening for disorder due to exposure to contaminants; Z13.1 Encounter for screening for diabetes mellitus
CPT/HCPCS: 36415; 82950; 83655; 84439; 84443; 85025; 86703; 86780

== ENCOUNTER 2025-03-23 12:58 | Emergency (ER) | payer OTHER, SELFPAY ==
[2025-03-23 12:58] VITALS: BP 122/80; PULSE 90; RESP 16; TEMP 36.8; O2SAT 98; BMI 28.1
[2025-03-23] MEDS: Tetracaine 0.5% Ophthalmic Bottle 1 DRP LEFT EYE (13:37)
--- OUTSIDE RECORDS SUMMARY | 2025-03-23 13:53 | XMS RPT_ITS | CCD ---
Author Organization [facility] CliniSyhi Care Team Providers Care Lion Trainer Name Role Phone BRIAN Palomares Attending Provider Aris PLANT PHYSIOLOGIST, PLANT PHYSIOLOGIST-C Yudi Primary Care Provider Aris PLANT PHYSIOLOGIST, PLANT PHYSIOLOGIST-C Yudi Referring Provider Dr. Carline Escobar Attending Provider BRIAN Palomares Attending Provider Aris PLANT PHYSIOLOGIST, PLANT PHYSIOLOGIST-C Yudi Primary Care Provider [phone] Aris PLANT PHYSIOLOGIST, PLANT PHYSIOLOGIST-C Yudi Referring Provider Dr. Carline Escobar Attending Provider QUITA Hutchins Attending Provider Aris PLANT PHYSIOLOGIST, PLANT PHYSIOLOGIST-C Yudi Primary Care Provider Aris PLANT PHYSIOLOGIST, PLANT PHYSIOLOGIST-C Yudi Referring Provider Dr. Carline Escobar Attending Provider JUAN F Gutiérrez NPC Tania Attending Provider Dr. Nelly Gay Attending Provider QUITA Goldman Attending Provider Aris PLANT PHYSIOLOGIST, PLANT PHYSIOLOGIST-C Yudi Primary Care Provider Aris PLANT PHYSIOLOGIST, PLANT PHYSIOLOGIST-C Yudi Referring Provider Dr. Carline Escobar Attending Provider Aris PLANT PHYSIOLOGIST, PLANT PHYSIOLOGIST-C Yudi Primary Care Provider Aris PLANT PHYSIOLOGIST, PLANT PHYSIOLOGIST-C Yudi Referring Provider Brock PETERSON, PLANT PHYSIOLOGIST-C Tania Attending Provider [phone] Dr. Nelly Gay Admit Provider [phone] Dr. Nelly Gay Other Provider [phone] Hutchnis, QUITA Moe Attending Provider [phone] Cuong, QUITA Moe Admit Provider Cuong, CNEpifanio Moe Other Provider Aris PLANT PHYSIOLOGIST, PLANT PHYSIOLOGIST-C Yudi Primary Care Provider Aris PLANT PHYSIOLOGIST, PLANT PHYSIOLOGIST-C Yudi Referring Provider Dr. Nelly Gay Attending Provider [phone] ARIS, YUDI Attending Unavailable ARIS, YUDI Consulting Unavailable ARIS, YUDI Primary Care Unavailable ARIS, YUDI Admitting Unavailable PROVIDER, UNKNOWN Consulting Unavailable ARIS, YUDI K Primary Care Unavailable CARLINE MITCHELL Referring Unavailab CAIN De La Vega Attending Unavailable Aris PLANT PHYSIOLOGIST-C, Yudi Primary Care Provider Aris PLANT PHYSIOLOGIST-C, Yudi Referring Provider Manjula Goldman CNM Attending Provider [phone] Manjula Goldman CNM Referring Provider [phone] Dr. Carline Escobar DO Attending Provider Dr. Ravinder Suazo MD Attending Provider Gabriele JACOB, Dr. Castellon Referring Provider Dr. Nelly Gay MD Attending Provider Dr. Nelly Gay MD Referring Provider Aris PLANT PHYSIOLOGIST-C, Yudi Primary Care Provider Aris PLANT PHYSIOLOGIST-C, Yudi Referring Provider Manjula Goldman CNM Attending Provider [phone] Aris PLANT PHYSIOLOGIST-C, Yudi Primary Care Provider Aris PLANT PHYSIOLOGIST-C, Yudi Referring Provider Dr. Carline Escobar DO Attending Provider Aris PLANT PHYSIOLOGIST, Yudi Referring Unavailable Nelly Gay Attending Unavailable Aris PLANT PHYSIOLOGIST, Yudi Primary Care Unavailable Aris PLANT PHYSIOLOGIST, Yudi Referring Unavailable Manjula Goldman Attending Unavailable Aris PLANT PHYSIOLOGIST, Yudi Primary Care Unavailable Manjula Goldman Attending Unavailable Aris PLANT PHYSIOLOGIST, Yudi Primary Care Unavailable Aris PLANT PHYSIOLOGIST, Yudi Referring Unavailable Aris PLANT PHYSIOLOGIST, Yudi Primary Care Unavailable Carline Escobar Attending Unavailmargoth Méndez PLANT PHYSIOLOGIST, Yudi Referring Unavailable Manjula Goldman Attending Unavailable Aris PLANT PHYSIOLOGIST, Yudi Primary Care Unavailable Aris PLANT PHYSIOLOGIST, Yudi Referring Unavailable Aris PLANT PHYSIOLOGIST, Yudi Primary Care Unavailable Nelly Gay Attending Unavailable Victor Hugo, Nelly Referring Unavailable Manjula Goldman Attending Unavailable Manjula Goldman Referring Unavailable Aris PLANT PHYSIOLOGIST, Yudi Primary Care Unavailable Aris PLANT PHYSIOLOGIST, Yudi Primary Care Unavailable Ravinder Suazo Attending Unavailable Ravinder Suazo Referring Unavailable Aris PLANT PHYSIOLOGIST, Yudi Primary Care Unavailable Ravinder Suazo Attending Unavailable Aris PLANT PHYSIOLOGIST, Yudi Referring Unavailable Manjula Goldman Attending Unavailable Aris PLANT PHYSIOLOGIST, Yudi Primary Care Unavailable Aris PLANT PHYSIOLOGIST, Yudi Referring Unavailable Aris PLANT PHYSIOLOGIST, Yudi Primary Care Unavailable Carline Escobar Attending Unavailmargoth Méndez PLANT PHYSIOLOGIST, Yudi Referring Unavailable Aris PLANT PHYSIOLOGIST, Yudi Primary Care Unavailable Manjula Goldman Attending Unavailable Aris PLANT PHYSIOLOGIST, Yudi Referring Unavailable Allergies Allergy Classification Reported Allergen(s) Allergy Type Date of Onset Reaction(s) Facility (14 sources) Amoxicillin Drug Allergy 06-08-20 unknown, [facility] Comment on above: Itching (14 sources) Clavulanate Drug Allergy 06-08-20 unknown, [facility] Comment on above: itch (14 sources) Sulfamethoxazole Drug Allergy 06-08-20 unknown, [facility] Comment on above: Itch (14 sources) terbinafine Drug Allergy 06-08-20 22 unknown, [facility] Comment on above: itch (14 sources) Trimethoprim Drug Allergy 06-08-20 unknown, [facility] Comment on above: Itch (8 sources) Penicillins Allergy to substance 01-24-20 23 Other, [facility] Comment on above: itch (1 source) Amoxicillin / Clavulanate Drug Allergy [facility] (1 source) Sulfamethoxazole / Trimethoprim Drug Allergy [facility] (1 source) Amoxicillin Drug Allergy 03-19-20 [facility] (1 source) Clavulanate Drug Allergy 03-19-20 [facility] (1 source) Penicillins Drug allergy (disorder) 03-19-20 [facility] (1 source) Sulfamethoxazole Drug Allergy 03-19-20 [facility] (1 source) terbinafine Drug Allergy 03-19-20 [facility] (1 source) Trimethoprim Drug Allergy 03-19-20 [facility] Medications Current Medications Medication Drug Class(es) Dates Sig (Normalized) Sig (Original) Mv-Mn 356-Oj-Rr9-Dha-Epa-F sherry 180 mcg-35 mg- 25 mg-5 mg tablet,chewable (5 sources) Start: 06-01-2022 Mv-Mn 317-Ay-Zo0-Dha-Epa- Fish 180 mcg-35 mg- 25 mg-5 mg tablet,chewable Active 1 {tbl} PO DAILY June 01, 2022 12:00am Check with primary doctor Start: 06-01-2022 Mv-Mn 110-Fa-O s6-Rlx-Qgb-Fish 180 mcg-35 mg- 25 mg-5 mg tablet,chewable Active 1 {tbl} PO DAILY June 01, 2022 12:00am ondansetron 4 mg oral tablet (20 sources) Serotonin-3 Receptor Antagonist Start: 10-04-2024 Ondansetron Hcl 4 mg tablet Active 4 mg PO EVERY 6-8 HOURS as needed for nausea and vomiting 30 4 October 04, 2024 1:00am Nausea and vomiting during Vomiting of , unspecified Start: 09-23-2024 End: 10-04-2024 take 1 tablet by mouth every eight hours as needed for nausea and vomiting Ondansetron 4 mg tablet,disintegrating Discontinued 4 mg PO Q8H as needed for nausea and vomiting 60 3 September 23, 2024 1:00am October 04, 2024 3:46pm Start: 06-08-2022 End: 08-07-2022 take 1 tablet by mouth every eight hours Ondansetron Hcl 4 mg tablet Discontinued 4 mg PO Q8H 180 60 0 June 08, 2022 12:00am August 06, 2022 1:00am August 07, 2022 1:04am Pnv No.085-Ld-Oe2-Dha-Epa-Fi sh (8 sources) Start: 06-01-2022 take 1 tablet by mouth once daily Pnv No.255-Ia-Wj9-Chn-Axd-Gjdl Active 1 TABLET PO DAILY May 31, 2022 11:00pm Start: 06-01-2022 take 1 tablet by nelsy th once daily Pnv No.706-Yv-Yc6-Enz-Xeo-Vtio Active 1 TABLET PO DAILY June 01, 2022 12:00am Start: 06-01-2022 Pnv No.178-Fa- Vr9-Vmh-Dbq-Fish Active TABLET PO May 31, 2022 11:00pm Start: 06-01-2022 Pnv No.178-Fa- Ka0-Orp-Xzu-Fish Active TABLET PO June 01, 2022 12:00am Pnv No.440-Uy-Yq4-Gik-Bke-Isip 180 mcg-35 mg- 25 mg-5 mg tablet,chewable (1 source) Start: 06-01-2022 Pnv No.870-Bz-Fb1-Rmx-Zpy-Rjxp 180 mcg-35 mg- 25 mg-5 mg tablet,chewable Active 1 {tbl} PO DAILY June 01, 2022 12:00am promethazine hydrochloride 12.5 mg oral tablet (6 sources) Phenothiazine Start: 05-24-2022 take 12.5 mg by mouth every six hours Promethazine Active 12.5 MG PO EVERY 6 HOURS 60 May 24, 2022 12:00am Completed/Discontinued Medications Medication Drug Class(es) Dates Sig (Normalized) Sig (Original) azithromycin 250 mg oral tablet (8 sources) Macrolide Antimicrobial Start: 01-18-2023 End: 01-26-2023 take 2 tablets by mouth once daily Azithromycin (Zithromax Z-Aj) 250 mg tablet Discontinued 250 mg PO DAILY 6 6 0 January 18, 2023 12:00am January 23, 2023 12:00am January 26, 2023 12:04am start on day 2 of therapy ferrous sulfate 325 mg oral tablet (8 sources) Start: 01-23-2023 End: 03-06-2023 take 1 tablet by mouth once daily Ferrous Sulfate (Iron) 325 mg (65 mg iron) Tablet Discontinued 325 mg PO DAILY January 23, 2023 12:00am March 06, 2023 11:36am Check with primary doctor Problems Active Problems Problem Classification Problem Date Documented Date Episodic/Chronic Diabetes or abnormal glucose tolerance complicating ; childbirth; or the puerperium (20 sources) Abnormal glucose level; Translations: [Abnormal glucose complicating ] 10-27-2022 Episodic Comment on above: BS done at home due to throwing up 3 hour gtt. She tracked for 2 weeks, fastings in the 80s and 2 hours after eating mostly under the 120s. growth us at 36 weeks-87% Immunizations and screening for infectious disease (5 sources) Contact with and (suspected) exposure to other viral communicable diseases; Translations: [Contact with or suspected exposure to other viral communicable disease] Onset: 02-19-2025 Episodic Other complications of (12 sources) Anemia; Translations: [Anemia complicating , unspecified trimester] 10-27-2022 Chronic Comment on above: add FE. Recheck CBC 4 weeks:improved Other complications of (20 sources) Anemia complicating , unspecified trimester; Translations: [Anemia of mother, unspecified as to episode of care or not applicable] 10-27-2022 Chronic Other complications of (9 sources) Group B 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; Translations: [Streptococcus B carrier state complicating ] 12-23-2022 Episodic Comment on above: treat with Vancomyci n at delivery Other complications of (5 sources) Streptococcus B carrier state complicating ; Translations: [Supervision of other high-risk ] 12-28-2022 Episodic Other complications of (20 sources) Vomiting of , unspecified; Translations: [Nausea and vomiting during ] Onset: 03-19-2025 10-04-2024 Episodic Other nutritional; endocrine; and metabolic disorders (14 sources) Hyperbilirubinemia; Translations: [Other disorders of bilirubin metabolism] 10-03-2022 Chronic Other nutritional; endocrine; and metabolic disorders (4 sources) Other disorders of bilirubin metabolism; Translations: [Jaundice, unspecified, not of ] Chronic Other and delivery including normal (20 sources) Normal ; Translations: [Encounter for supervision of normal first , unspecified trimester] Onset: 03-19-2025 Episodic Comment on above: IOL for postdates. 1 ./-3pitocin and saenz bulb [id number], PARAG 01/16/23 , boy Pabon Spouse Sudheer PRR,, PARAG 5, PC Cm, Sudheer IOL postdates at 41. . boy: cm. LC declines NIPT & [place]ledge ier testing anatomy nl, declined afp NIPT & Carrier testing PRR,, PARAG 5, girl PC Cm, Sudheer Other screening for suspected conditions (not mental disorders or infectious disease) (12 sources) Patient encounter status; Translations: [Encounter for screening for disorder due to exposure to contaminants] Onset: 02-19-2025 01-29-2025 Episodic Other upper respiratory infections (6 sources) Acute pharyngitis; Translations: [Acute pharyngitis, unspecified] Episodic Residual codes; unclassified (1 source) 32 weeks gestation of ; Translations: [32 weeks gestation of ] Onset: 03-19-2025 Episodic Residual codes; unclassified (1 source) 28 weeks gestation of ; Translations: [28 weeks gestation of ] Onset: 02-19-2025 Episodic Residual codes; unclassified (1 source) 25 weeks gestation of ; Translations: [25 weeks gestation of ] Onset: 01-29-2025 Episodic Thyroid disorders (20 sources) Thyroid nodule; Translations: [Nontoxic single thyroid nodule] Onset: 03-19-2025 11-26-2024 Chronic Comment on above: Patient is a 29-year -old female with incidentally noted right thyroid nodule that was first noted by her mother through casual observation. It was suspected this nodule was related to a prior viral illness but patient confirms that it was never very tender. Formal thyroid ultrasound was completed and radiology has rated this a TI-RADS 3 lesion. Patient does not appear to have any symptoms from a compressive standpoint. We discussed her thyroid ultrasound in detail using hand drawing schematic to illustrate the location as well as introduce the topic of the TI-RADS grading system. It should be noted that patient's thyroid nodule was rated a TI-RADS 3, however, it could technically be reclassified as a TI-RADS 2 given that it truly has a mixed composition (an otherwise isoechoic) with a substantial cystic component. Yet, because there could have been a consideration to describe this as mostly solid I extended the recommendation for biopsy to Mrs. Atwood after providing a description of the procedure. She was readily receptive and the procedure was undertaken in uncomplicated fashion during today's visit. Complete details are given in the procedures section of today's note. Past or Other Problems Problem Classification Problem Date Documented Da te Episodic/Chronic Residual codes; unclassified (1 source) 16 weeks gestation of ; Translations: [16 weeks gestation of ] Onset: 11-27-2024 Episodic Residual codes; unclassified (1 source) 8 weeks gestation of ; Translations: [8 weeks gestation of ] Onset: 10-04-2024 Episodic Results Test Name Value Interpretation Reference Range Facility Grading Machine Operator Office Visit Reporton 03-19-2025 Grading Machine Operator Office Visit Report [facility] [address], [address] [place] [address] OFFICE VISIT Date of Service: 03/19/25 MR#: [id number] Acct: [id number] Name: JIMMY ATWOOD Rep #: [id number] 7 : 1995 Provider: QUITA Tanner ams Age/Sex: 29/F [facility] Status: Signed Intake Vital Signs 01/29/25 15:15 03/07/25 16:14 03/19/25 12:49 03/19/25 12:51 03/19/25 12:54 Height 5 ft 7 in 5 ft 7 in 5 ft 7 in 5 ft 7 in 5 ft 7 in Weight: 183 lb BMI 28.6 BP 104/67 Intake Visit Reasons: 32 wk ob Senior It Recruiter Required: No Is patient in pain?: No Allergies Penicillins Allergy (Intermediate, Verified 03/19/25 12:49) Rash amoxicillin (From Augmentin) Adverse Reaction (Intermediate, Verified 03/19/25 12:49) Rash clavulanic acid (From Augmentin) Adverse Reaction (Intermediate, Verified 03/19/25 12:49) Rash sulfamethoxazole (From Bactrim) Adverse Reaction (Intermediate, Verified 03/19/25 12:49) Rash terbinafine (From Lamisil) Adverse Reaction (Intermediate, Verified 03/19/25 12:49) Rash trimethoprim (From Bactrim) Adverse Reaction (Intermediate, Verified 03/19/25 12:49) Rash Medications ???Medication ???Instructions ???Recorded ???Confirmed ???Type mv-mn 110-FA 180 mcg-om3 35 mg-dha 1 tab PO DAILY Check with primar y 06/01/22 03/19/25 History 25 mg-epa 5 mg-fish oil chew tablet doctor ondansetron HCl 4 mg tablet 4 mg PO Q6-8H PRN nausea and 10/0403/19/25 Rx vomiting #30 tabs Last Menstrual Period: 08/03/24 : No PFSH PFSH Medical History GBS (group B 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), +RV culture, currently Surgical History Hx of tonsillectomy Family History Father Heart disease Social History adopted: No household members: spouse and children housing: house number of children: 1 current occupational status: employed 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 occupational exposures/hazards: No pets and animals: Yes (2) pets and animals: dog(s) history of recent travel: No sexually active: Yes Smoking Status: Never smoker alcohol intake: current alcohol intake frequency: holidays/special occasions only details: Not while substance use type: does not use well-balanced diet: daily or most days caffeine: Yes Type: coffee Number of servings: 1 eating out: rarely or never during the past year weight has: remained stable what type of physical activity do you participate in: walking frequency: 3-4 times per week duration: 15-30 minutes/day [place]/temple: Religious seatbelt use: always do you feel safe at home: Yes 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 Date Name GA/Weeks Outcome Route Bth Weight Infant Gen Labor Lgth Anesthesia Del Locatn Provider FOB 01/23/23 Cm 41 live - full term 9#1oz Male epidural [facility] Narcisa Willard HPI 32 wk ob Details: JIMMY ATWOOD is a 29 year old who presents for routine OB visit. OB Visit PARAG Calculator Estimated Delivery Date Method Current WG Current Estimate 05/14/25 Ultrasound #1 32w 0d Other Estimates 05/10/25 LMP (Certain) 32w 4d Expected Delivery Route/Plan Labor Preferences- CB/BF classes: [] labor support person: [] labor intervention preferences: [] pain management options preferred: [] cut cord/dad catch: [] : [] PP control planned: [] discussed possible routes of delivery and associated risks: [] special requests: [] Specific Issue/Plans Covid status: [] Flu vaccine: [] Tdap vaccine: [] Rhogam: [] LARC form signed: [] Problem list reviewed and updated with the most current plan of care details and appropriate orders placed. Relevant counseling for the gestational age provided. Continue routine care and follow up unless otherwise noted in visit notes/problem list details Initial Weight: 152 lb Date -???-???-???-???-???-??? -???-???-???-???-???-??? - EGA Weight BP Urine Prot -???-???-???-???-???-??? -???-???-???-???-???-??? - Glucose FHR FuHt Pres Dilation -???-???-???-???-???-??? -???-???-???-???-???-??? - Effaced St Visit Note 10/04/24 -???-???-???-???-???-??? -???-???-???-???-???-??? - 8w 2d 152 lb 6 oz (+6 oz) 124/82 -???-???-???-???-???-??? -???-???-???-???-???-??? - 171 -???-???-???-???-???-??? -???-???-???-???-???-??? - KW- CRL cons with dates. Declin (more content not included)... Normal [facility] Grading Machine Operator Office Visit Report [facility] [address], [address] [place] [address] OFFICE VISIT Date of Service: 03/19/25 MR#: [id number] Acct: [id number] Name: JIMMY ATWOOD Rep #: [id number] 1 : 1995 Provider: QUITA Tanner ams Age/Sex: 29/F Location: [facility] Status: Signed Intake Vital Signs 01/29/25 15:15 03/07/25 16:14 03/19/25 12:49 03/19/25 12:51 Height 5 ft 7 in 5 ft 7 in 5 ft 7 in 5 ft 7 in Weight: 183 lb BMI 28.6 BP 104/67 Intake Visit Reasons: 32 wk ob Allergies Penicillins Allergy (Intermediate, Verified 03/19/25 12:49) Rash amoxicillin (From Augmentin) Adverse Reaction (Intermediate, Verified 03/19/25 12:49) Rash clavulanic acid (From Augmentin) Adverse Reaction (Intermediate, Verified 03/19/25 12:49) Rash sulfamethoxazole (From Bactrim) Adverse Reaction (Intermediate, Verified 03/19/25 12:49) Rash terbinafine (From Lamisil) Adverse Reaction (Intermediate, Verified 03/19/25 12:49) Rash trimethoprim (From Bactrim) Adverse Reaction (Intermediate, Verified 03/19/25 12:49) Rash Medications ???Medication ???Instructions ???Recorded ???Confirmed ???Type mv-mn 110-FA 180 mcg-om3 35 mg-dha 1 tab PO DAILY Check with primar y 06/01/22 03/19/25 History 25 mg-epa 5 mg-fish oil chew tablet doctor ondansetron HCl 4 mg tablet 4 mg PO Q6-8H PRN nausea and 10/0403/19/25 Rx vomiting #30 tabs Last Menstrual Period: 08/03/24 : No PFSH PFSH Medical History GBS (group B 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), +RV culture, currently Surgical History Hx of tonsillectomy Family History Father Heart disease Social History adopted: No household members: spouse and children housing: house number of children: 1 current occupational status: employed 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 occupational exposures/hazards: No pets and animals: Yes (2) pets and animals: dog(s) history of recent travel: No sexually active: Yes Smoking Status: Never smoker alcohol intake: current alcohol intake frequency: holidays/special occasions only details: Not while substance use type: does not use well-balanced diet: daily or most days caffeine: Yes Type: coffee Number of servings: 1 eating out: rarely or never during the past year weight has: remained stable what type of physical activity do you participate in: walking frequency: 3-4 times per week duration: 15-30 minutes/day [place]/temple: Religious seatbelt use: always do you feel safe at home: Yes 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 Date Name GA/Weeks Outcome Route Bth Weight Gen Labor Lgth Anesthesia Del Locat Provider FOB 01/23/23 [place] 41 live - full term 9#1oz Male epidural [facility] HPI 32 wk ob Details: JIMMY ATWOOD is a 29 year old who presents for routine OB visit. OB Visit PARAG Calculator Estimated Delivery Date Method Current WG Current Estimate 05/14/25 Ultrasound #1 32w 0d Other Estimates 05/10/25 LMP (Certain) 32w 4d Expected Delivery Route/Plan Labor Preferences- CB/BF classes: [] labor support person: [] labor intervention preferences: [] pain management options preferred: [] cut cord/dad catch: [] : [] PP control planned: [] discussed possible routes of delivery and associated risks: [] special requests: [] Specific Issue/Plans Covid status: [] Flu vaccine: [] Tdap vaccine: [] Rhogam: [] LARC form signed: [] Problem list reviewed and updated with the most current plan of care details and appropriate orders placed. Relevant counseling for the gestational age provided. Continue routine care and follow up unless otherwise noted in visit notes/problem list details Initial Weight: 152 lb Date -???-???-???-???-???-??? -???-???-???-???-???-??? - EGA Weight BP Urine Prot -???-???-???-???-???-??? -???-???-???-???-???-??? - Glucose FHR FuHt Pres Dilation -???-???-???-???-???-??? -???-???-???-???-???-??? - Effaced St Visit Note 10/04/24 -???-???-???-???-???-??? -???-???-???-???-???-??? - 8w 2d 152 lb 6 oz (+6 oz) 124/82 -???-???-???-???-???-??? -???-???-???-???-???-??? - 171 -???-???-???-???-???-??? -???-???-???-???-???-??? - KW- CRL cons with dates. Declines NIPT. would like some appts in [facility]. 11/01/24 (more content not included)... Normal [facility] - Chemistry and C hemistry - challengeOrdered By: Nelly Gay on 03-07-2025 Glucose Ql (U) Negative [facility] - UrinalysisOrder ed By: Nelly Gay on 03-07-2025 Protein Ql (U) Negative [facility] Grading Machine Operator Office Visit Reporton 03-07-2025 Grading Machine Operator Office Visit Report [facility] [address], [address] [place] [address] OFFICE VISIT Date of Service: 03/07/25 MR#: [id number] Acct: [id number] Name: JIMMY ATWOOD Rep #: [id number] : 1995 Provider: Dr. Nelly bangura MD Age/Sex: 29/F Location: [facility] Status: Signed Intake Vital Signs 01/29/25 15:15 02/19/25 11:35 03/07/25 16:11 03/07/25 16:14 Height 5 ft 7 in 5 ft 7 in 5 ft 7 in 5 ft 7 in Weight: 182 lb 2 oz BMI 28.5 BP 115/73 Intake Visit Reasons: 30 wk ob Chief Complaint: 30 Week OB Senior It Recruiter Required: No Is patient in pain?: No Allergies Penicillins Allergy (Intermediate, Verified 03/07/25 16:11) Rash amoxicillin (From Augmentin) Adverse Reaction (Intermediate, Verified 03/07/25 16:11) Rash clavulanic acid (From Augmentin) Adverse Reaction (Intermediate, Verified 03/07/25 16:11) Rash sulfamethoxazole (From Bactrim) Adverse Reaction (Intermediate, Verified 03/07/25 16:11) Rash terbinafine (From Lamisil) Adverse Reaction (Intermediate, Verified 03/07/25 16:11) Rash trimethoprim (From Bactrim) Adverse Reaction (Intermediate, Verified 03/07/25 16:11) Rash Medications ???Medication ???Instructions ???Recorded ???Confirmed ???Type mv-mn 110-FA 180 mcg-om3 35 mg-dha 1 tab PO DAILY Check with primar y 06/01/22 03/07/25 History 25 mg-epa 5 mg-fish oil chew tablet doctor ondansetron HCl 4 mg tablet 4 mg PO Q6-8H PRN nausea and 10/0403/07/25 Rx vomiting #30 tabs Last Menstrual Period: 08/03/24 Zika: Zika virus screening: Negative : No PFSH PFSH Medical History GBS (group B 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), +RV culture, currently Surgical History Hx of tonsillectomy Family History Father Heart disease Social History adopted: No household members: spouse and children housing: house number of children: 1 current occupational status: employed 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 occupational exposures/hazards: No pets and animals: Yes (2) pets and animals: dog(s) history of recent travel: No sexually active: Yes Smoking Status: Never smoker alcohol intake: current alcohol intake frequency: holidays/special occasions only details: Not while substance use type: does not use well-balanced diet: daily or most days caffeine: Yes Type: coffee Number of servings: 1 eating out: rarely or never during the past year weight has: remained stable what type of physical activity do you participate in: walking frequency: 3-4 times per week duration: 15-30 minutes/day [place]/temple: Religious seatbelt use: always do you feel safe at home: Yes 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 Date Name GA/Weeks Outcome Route Bth Weight Infant Gen Labor Lgth Anesthesia Del Locatn Provider FOB 01/23/23 Cm 41 live - full term 9#1oz Male [facility] HPI 30 wk ob Details: JIMMY ATWOOD is a 29 year old who presents for routine OB visit. OB Visit PARAG Calculator Estimated Delivery Date Method Current WG Current Estimate 05/14/25 Ultrasound #1 30w 2d Other Estimates 05/10/25 LMP (Certain) 30w 6d Expected Delivery Route/Plan Labor Preferences- CB/BF classes: [] labor support person: [] labor intervention preferences: [] pain management options preferred: [] cut cord/dad catch: [] : [] PP control planned: [] discussed possible routes of delivery and associated risks: [] special requests: [] Specific Issue/Plans Covid status: [] Flu vaccine: [] Tdap vaccine: [] Rhogam: [] LARC form signed: [] Problem list reviewed and updated with the most current plan of care details and appropriate orders placed. Relevant counseling for the gestational age provided. Continue routine care and follow up unless otherwise noted in visit notes/problem list details Initial Weight: 152 lb Date -???-???-???-???-???-??? -???-???-???-???-???-??? - EGA Weight BP Urine Prot -???-???-???-???-???-??? -???-???-???-???-???-??? - Glucose FHR FuHt Pres Dilation -???-???-???-???-???-??? -???-???-???-???-???-??? - Effaced St Visit Note 10/04/24 -???-???-???-???-???-??? -???-???-???-???-???-??? - 8w 2d 152 lb 6 oz (+6 oz) 124/82 -???-???-???-???-???-??? -???-???-???-???-???-??? - 171 -???-? (more content not included)... Normal [facility] - Chemistry and C hemistry - challengeOrdered By: Manjula Goldman on 02-19-2025 Glucose Ql (U) Negative [facility] - UrinalysisOrder ed By: Manjula Goldman on 02-19-2025 Protein Ql (U) Negative [facility] Grading Machine Operator Office Visit Reporton 02-19-2025 Grading Machine Operator Office Visit Report [facility] [address], [address] [place] [address] OFFICE VISIT Date of Service: 02/19/25 MR#: [id number] Acct: [id number] Name: JIMMY ATWOOD Rep #: [id number] : 1995 Provider: QUITA Tanner ams Age/Sex: 29/F [place] [facility] Status: Signed with Addenda ADDENDUM by Tessa Hearn on 02/19/25 at 1154 Office Procedure Documentation entered by Tessa Hearn 02/19/25 11:54: Immunizations Boostrix Tdap 2.5 Lf unit-8 mcg-5 Lf/0.5 mL intramuscular syringe Performing Provider: Manjula Goldman CNM Performing Location: [facility] Administered by: Tessa Hearn on 02/19/25 11:52 Dose Route Admin Location Dispensed Lot Number Expiration Date ND Man ufacturer 0.5 mL IM Right Deltoid 0.5 mL [id number] 10/19/26 [id number] [employer]- PASTEUR VIS Given Date VIS Provided VIS Publication Date 02/19/25 Single Vaccine 24 Eligibility Eligibility Date Funding Source Not Applicable Date cc: * Signed Intake Vital Signs 01/01/25 11:30 01/29/25 15:15 02/19/25 11:31 02/19/25 11:35 Height 5 ft 7 in 5 ft 7 in 5 ft 7 in 5 ft 7 in Weight: 178 lb BMI 27.8 BP 111/71 Intake Visit Reasons: 28 wk ob Senior It Recruiter Required: No Is patient in pain?: No Allergies Penicillins Allergy (Intermediate, Verified 02/19/25 11:30) Rash amoxicillin (From Augmentin) Adverse Reaction (Intermediate, Verified 02/19/25 11:30) Rash clavulanic acid (From Augmentin) Adverse Reaction (Intermediate, Verified 02/19/25 11:30) Rash sulfamethoxazole (From Bactrim) Adverse Reaction (Intermediate, Verified 02/19/25 11:30) Rash terbinafine (From Lamisil) Adverse Reaction (Intermediate, Verified 02/19/25 11:30) Rash trimethoprim (From Bactrim) Adverse Reaction (Intermediate, Verified 02/19/25 11:30) Rash Last Menstrual Period: 08/03/24 : No PFSH PFSH Medical History GBS (group B 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), +RV culture, currently Surgical History Hx of tonsillectomy Family History Father Heart disease Social History adopted: No household members: spouse and children housing: house number of children: 1 current occupational status: employed 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 occupational exposures/hazards: No pets and animals: Yes (2) pets and animals: dog(s) history of recent travel: No sexually active: Yes Smoking Status: Never smoker alcohol intake: current alcohol intake frequency: holidays/special occasions only details: Not while substance use type: does not use well-balanced diet: daily or most days caffeine: Yes Type: coffee Number of servings: 1 eating out: rarely or never during the past year weight has: remained stable what type of physical activity do you participate in: walking frequency: 3-4 times per week duration: 15-30 minutes/day [place]/temple: Religious seatbelt use: always do you feel safe at home: Yes 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 Date Name GA/Weeks Outcome Route Bth Weight Gen Labor Lgth Anesthesia Del Locatn Provider FOB 01/23/23 Cm 41 live - full term 9#1oz Male epidural [facility] latia Hutchins Sudheer HPI 28 wk ob Details: JIMMY TAWOOD is a 29 year old who presents for routine OB visit. OB Visit PAARG Calculator Estimated Delivery Date Method Current WG Current Estimate 05/14/25 Ultrasound #1 28w 0d Other Estimates 05/10/25 LMP (Certain) 28w 4d Expected Delivery Route/Plan Labor Preferences- CB/BF classes: [] labor support person: [] labor intervention preferences: [] pain management options preferred: [] cut cord/dad catch: [] : [] PP control planned: [] discussed possible routes of delivery and associated risks: [] special requests: [] Specific Issue/Plans Covid status: [] Flu vaccine: [] Tdap vaccine: [] Rhogam: [] LARC form signed: [] Problem list reviewed and updated with the most current plan of care details and appropriate orders placed. Relevant counseling for the gestational age provided. Continue routine care and follow up unless otherwise noted in visit notes/problem list details Initial Weight: 152 lb Date -???-???-???-???-???-??? -???-???-???-???-???-??? - EGA Weight BP Urine Prot -? (more content not included)... Normal [facility] Lead, Blood Adult 16+yrson 0 01-31-2025 LEAD,BLD ADULT < 1.0 Normal 0.0-3.4 [facility] Comment on above: Order Comment: Test( s) [id number], Blood (Adult)was developed and its performance characteristicsdetermined by [email or web address]. It has not been cleared or approvedby the Food and Drug Administration. Result Comment: Test ing performed by Inductively coupled plasma/Mass Spectrometry. Analysis by inductively coupled plasma/mass spectrometry (ICP/MS) Environmental Exposure: WHO Recommendation <5.0 Occupational Exposure: OSHA Lead Std 40.0 JAMAR 30.0 Detection Limit = 1.0 Performed at: [facility] [employer] [id number] [employer] Station Chief Engineer: Guzman Darnell PhD, Phone: [phone] Performed By: #### L 100.0100, L506.0400, L509.8962, L501.9520, L501.0250, L3890.7534 #### [facility] [address] [place], [address] Absolute lymphocyte countOrd ered By: Manjula Goldman on 01-29-2025 Lymphocytes Auto (Unsp spec) [#/Vol] 1.80 10*3/uL 0.83-4.51 [facility] Absolute neutrophil countOrd ered By: Manjula Goldman on 01-29-2025 Neutrophils (Bld) [#/Vol] 8.3 10*3/uL High 2.0-7.7 [facility] Automated lymphocyte count a s percentage of total leukocytesOrdered By: Manjula Goldman on 01-29-2025 Lymphocytes/100 WBC Auto (Unsp spec) 16.1 % Low 19-41 [facility] Basophil percentageOrdered B y: Manjula Goldman on 01-29-2025 Basophils/100 WBC (Bld) 0.4 % 0-[address] [facility] CBC W/Diff, Automatedon 01-19 Absolute Lymph 1.80 X10 3/uL Normal 0.83-4.51 [facility] Comment on above: Performed By: #### L 100.0100, L506.0400, L509.8002, L501.9520, L501.0250, L3890.6006 #### [facility] [address] [place], [address] Absolute Neut 8.3 X10 3/uL High 2.0-7.7 [facility] Comment on above: Performed By: #### L 100.0100, L506.0400, L509.8002, L501.9520, L501.0250, L3890.6006 #### [facility] [address] [place], [address] Basophils/100 WBC (Bld) 0.4 % Normal 0-[address] [facility] Comment on above: Performed By: #### L 100.0100, L506.0400, L509.8002, L501.9520, L501.0250, L3890.6006 #### [facility] [address] [place], [address] Eosinophils/100 WBC (Bld) 1.1 % Normal 0-5 [facility] Comment on above: Performed By: #### L 100.0100, L506.0400, L509.8002, L501.9520, L501.0250, L3890.6006 #### [facility] [address] [place], [address] Erythrocyte distribution width (RBC) [Ratio] 13.2 % Normal 11.6-14.6 [facility] Comment on above: Performed By: #### L 100.0100, L506.0400, L509.8002, L501.9520, L501.0250, L3890.6006 #### [facility] [address] [place], [address] Hematocrit (Bld) [Volume fraction] 31.4 % Low 37-47 [facility] Comment on above: Performed By: #### L 100.0100, L506.0400, L509.8002, L501.9520, L501.0250, L3890.6006 #### [facility] [address] [place], [address] Hemoglobin (Bld) [Mass/Vol] 10.9 g/dL Low 12.0-15.0 [facility] Comment on above: Performed By: #### L 100.0100, L506.0400, L509.8002, L501.9520, L501.0250, L3890.6006 #### [facility] [address] [place], [address] IG% 1.300 High 0.0-0.9 [facility] Comment on above: Result Comment: IG% - Immature Granulocytes (promyelocytes, myelocytes and metamyelocytes) > 1% indicates that a LEFT SHIFT is Present. Performed By: #### L 100.0100, L506.0400, L509.8002, L501.9520, L501.0250, L3890.6006 #### [facility] [address] [place], [address] Lymphocytes/100 WBC (Bld) 16.1 % Low 19-41 [facility] Comment on above: Performed By: #### L 100.0100, L506.0400, L509.8002, L501.9520, L501.0250, L3890.6006 #### [facility] [address] [place], [address] MCH (RBC) [Entitic mass] 32.9 pg High 27.0-32.0 [facility] Comment on above: Performed By: #### L 100.0100, L506.0400, L509.8002, L501.9520, L501.0250, L3890.6006 #### [facility] [address] [place], [address] MCHC (RBC) [Mass/Vol] 34.7 g/dL Normal 32-36 [facility] Comment on above: Performed By: #### L 100.0100, L506.0400, L509.8002, L501.9520, L501.0250, L3890.6006 #### [facility] [address] [place], [address] MCV (RBC) [Entitic vol] 94.9 fL Normal 81-99 [facility] Comment on above: Performed By: #### L 100.0100, L506.0400, L509.8002, L501.9520, L501.0250, L3890.6006 #### [facility] [address] [place], [address] Monocytes/100 WBC (Bld) 7.2 % Normal 0-10 [facility] Comment on above: Performed By: #### L 100.0100, L506.0400, L509.8002, L501.9520, L501.0250, L3890.6006 #### [facility] [address] [place], [address] Neutrophils/100 WBC (Bld) 73.9 % High 47-70 [facility] Comment on above: Performed By: #### L 100.0100, L506.0400, L509.8002, L501.9520, L501.0250, L3890.6006 #### [facility] [address] [place], [address] Nucleated RBC (Bld) [#/Vol] 0 10*3/uL Normal 0-5 [facility] Comment on above: Performed By: #### L 100.0100, L506.0400, L509.8002, L501.9520, L501.0250, L3890.6006 #### [facility] [address] [place], [address] Platelet mean volume (Bld) [Entitic vol] 9.7 fL Normal 6.2-12.0 [facility] Comment on above: Performed By: #### L 100.0100, L506.0400, L509.8002, L501.9520, L501.0250, L3890.6006 #### [facility] [address] [place], [address] Platelets (Bld) [#/Vol] 375 10*3/uL Normal 150-450 [facility] Comment on above: Performed By: #### L 100.0100, L506.0400, L509.8002, L501.9520, L501.0250, L3890.6006 #### [facility] [address] [place], [address] RBC (Bld) [#/Vol] 3.31 10*6/uL Low 4.2-5.4 [facility] Comment on above: Performed By: #### L 100.0100, L506.0400, L509.8002, L501.9520, L501.0250, L3890.6006 #### [facility] [address] [place], [address] RDW SD 45.6 fl High 35.1-43.9 [facility] Comment on above: Performed By: #### L 100.0100, L506.0400, L509.8002, L501.9520, L501.0250, L3890.6006 #### [facility] [address] [place], [address] WBC (Bld) [#/Vol] 11.2 10*3/uL High 4.4-11.0 [facility] Comment on above: Performed By: #### L 100.0100, L506.0400, L509.8002, L501.9520, L501.0250, L3890.6006 #### [facility] [address] [place], [address] Eosinophil percentageOrdered By: Manjula Goldman on 01-29-2025 Eosinophils/100 WBC (Bld) 1.1 % 0-5 [facility] Erythrocyte distribution wid th ratioOrdered By: Manjula Goldman on 01-29-2025 Erythrocyte distribution width (RBC) [Ratio] 13.2 % 11.6-14.6 [facility] Erythrocyte distribution wid th standard deviationOrdered By: Manjual Goldman on 01-29-2025 Erythrocyte distribution width (RBC) [Ratio] 45.6 fl High 35.1-43.9 [facility] Glucose Challenge Gest 1H 50 bronwyn 01-29-2025 GLU GEST 50g 1H 116 mg/dL Normal 70-140 [facility] Comment on above: Performed By: #### L 100.0100, L506.0400, L509.8002, L501.9520, L501.0250, L3890.6006 #### [facility] [address] [place], [address] Glucose measurement at 2 tatum rs post-dose gestational glucose tolerance testOrdered By: Manjula Goldman on 01-29-2025 Glucose [Mass/Vol] 116 mg/dL 70-140 [facility] HIVon 01-29-2025 HIV Non-Reactive Normal Nonreactive [facility] Comment on above: Result Comment: Non- Reactive Reactive Repeatedly reactive samples must be confirmed according to CDC recommended confirmatory algorithms. The subresults for either HIVAG or AHIV can be used as an aid in the selection of the confirmation algorithm for reactive samples. Send out specimens with Reactive results to [facility] for confirmation. Order the HIV antibody detection and differentiation: lc#[id number] Performed By: #### L 100.0100, L506.0400, L509.8002, L501.9520, L501.0250, L3890.6006 #### [facility] [address] [place], [address] Hematocrit Auto (Bld) [Volum e fraction]Ordered By: Manjula Goldman on 01-29-2025 Hematocrit (Bld) [Volume fraction] 31.4 % Low 37-47 [facility] Hemoglobin measurementOrdere d By: Manjula Goldman on 01-29-2025 Hemoglobin (Bld) [Mass/Vol] 10.9 g/dL Low 12.0-15.0 [facility] Immature granulocytes/100 WB C Auto (Bld)Ordered By: Manjula Goldman on 01-29-2025 Immature granulocytes/100 WBC (Bld) 1.300 % High 0.0-0.9 [facility] Comment on above: IG% - Immature Granu locytes (promyelocytes, myelocytes and metamyelocytes) > 1% indicates that a LEFT SHIFT is Present. Laboratory - Chemistry and C hemistry - challengeOrdered By: Carline Bolden on 01-29-2025 Glucose Ql (U) Negative [facility] - UrinalysisOrder ed By: Carline Bolden on 01-29-2025 Protein Ql (U) Negative [facility] MCV (mean corpuscular volume ) determinationOrdered By: Manjula Goldman on 01-29-2025 MCV (RBC) [Entitic vol] 94.9 fL 81-[address] [facility] Mean corpuscular hemoglobin (MCH) determinationOrdered By: Manjula Goldman on 01-29-2025 MCH (RBC) [Entitic mass] 32.9 pg High 27.0-32.0 [facility] Mean corpuscular hemoglobin concentration (MCHC) determinationOrdered By: Manjula Goldman on 01-29-2025 MCHC (RBC) [Mass/Vol] 34.7 g/dL 32-36 [facility] Mean platelet volume determi nationOrdered By: Manjula Goldman on 01-29-2025 Platelet mean volume (Bld) [Entitic vol] 9.7 fL 6.2-12.0 [facility] Monocyte percentageOrdered B y: Manjula Goldman on 01-29-2025 Monocytes/100 WBC (Bld) 7.2 % 0-[address] [facility] Neutrophil percentageOrdered By: Manjula Goldman on 01-29-2025 Neutrophils/100 WBC (Bld) 73.9 % High 47-70 [facility] No Panel InformationOrdered By: Manjula Goldman on 01-29-2025 HIV (1&2) Antibody Non-Reactive Nonreactive [facility] Comment on above: Non-ReactiveReactive Repeatedly reactive samples must be confirmed according to CDC recommended confirmatory algorithms. The subresults for either HIVAG or AHIV can be used as an aid in the selection of the confirmation algorithm for reactive samples.Send out specimens with Reactive results to [facility] for confirmation.Order the HIV antibody detection and differentiation: #[id number] Nucleated red blood cell per centageOrdered By: Manjula Goldman on 01-29-2025 Nucleated RBC/100 WBC (Bld) [Ratio] 0 % 0-5 [facility] Grading Machine Operator Office Visit Reporton 01-29-2025 Grading Machine Operator Office Visit Report [facility] [place], [place] [address] OFFICE VISIT Date of Service: 01/29/25 MR#: [id number] Acct: [id number] Name: JIMMY ATWOOD Rep #: [id number] : 1995 Provider: Dr. Carline Rueda DO Age/Sex: 29/F Location: [facility] Status: Signed Intake Vital Signs 01/01/25 11:30 01/29/25 15:12 01/29/25 15:15 Height 5 ft 7 in 5 ft 7 in 5 ft 7 in Weight: 174 lb BMI 27.2 BP 118/69 Intake Visit Reasons: 26wk ob/glucose Senior It Recruiter Required: No Is patient in pain?: No Allergies Penicillins Allergy (Intermediate, Verified 01/29/25 15:11) Rash amoxicillin (From Augmentin) Adverse Reaction (Intermediate, Verified 01/29/25 15:11) Rash clavulanic acid (From Augmentin) Adverse Reaction (Intermediate, Verified 01/29/25 15:11) Rash sulfamethoxazole (From Bactrim) Adverse Reaction (Intermediate, Verified 01/29/25 15:11) Rash terbinafine (From Lamisil) Adverse Reaction (Intermediate, Verified 01/29/25 15:11) Rash trimethoprim (From Bactrim) Adverse Reaction (Intermediate, Verified 01/29/25 15:11) Rash Medications ???Medication ???Instructions ???Recorded ???Confirmed ???Type mv-mn 110-FA 180 mcg-om3 35 mg-dha 1 tab PO DAILY Check with primar y 06/01/22 01/29/25 History 25 mg-epa 5 mg-fish oil chew tablet doctor ondansetron HCl 4 mg tablet 4 mg PO Q6-8H PRN nausea and 10/0401/29/25 Rx vomiting #30 tabs Last Menstrual Period: 08/03/24 Zika: Zika virus screening: Negative : No PFSH PFSH Medical History GBS (group B 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), +RV culture, currently Surgical History Hx of tonsillectomy Family History Father Heart disease Social History adopted: No household members: spouse and children housing: house number of children: 1 current occupational status: employed 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 occupational exposures/hazards: No pets and animals: Yes (2) pets and animals: dog(s) history of recent travel: No sexually active: Yes Smoking Status: Never smoker alcohol intake: current alcohol intake frequency: holidays/special occasions only details: Not while substance use type: does not use well-balanced diet: daily or most days caffeine: Yes Type: coffee Number of servings: 1 eating out: rarely or never during the past year weight has: remained stable what type of physical activity do you participate in: walking frequency: 3-4 times per week duration: 15-30 minutes/day [place]/temple: Religious seatbelt use: always do you feel safe at home: Yes 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 Date Name GA/Weeks Outcome Route Bth Weight Gen Labor Lgth Anesthesia Del Locatn Provider FOB 01/23/23 Cm 41 live - full term 9#1oz Male epidural [facility] ndsadonnie Willard HPI 26wk ob/glucose Details: JIMMY ATWOOD is a 29 year old who presents for routine OB visit. OB Visit PARAG Calculator Estimated Delivery Date Method Current WG Current Estimate 05/14/25 Ultrasound #1 25w 0d Other Estimates 05/10/25 LMP (Certain) 25w 4d Expected Delivery Route/Plan Labor Preferences- CB/BF classes: [] labor support person: [] labor intervention preferences: [] pain management options preferred: [] cut cord/dad catch: [] : [] PP control planned: [] discussed possible routes of delivery and associated risks: [] special requests: [] Specific Issue/Plans Covid status: [] Flu vaccine: [] Tdap vaccine: [] Rhogam: [] LARC form signed: [] Problem list reviewed and updated with the most current plan of care details and appropriate orders placed. Relevant counseling for the gestational age provided. Continue routine care and follow up unless otherwise noted in visit notes/problem list details Initial Weight: 152 lb Date -???-???-???-???-???-??? -???-???-???-???-???-??? - EGA Weight BP Urine Prot -???-???-???-???-???-??? -???-???-???-???-???-??? - Glucose FHR FuHt Pres Dilation -???-???-???-???-???-??? -???-???-???-???-???-??? - Effaced St Visit Note 10/04/24 -???-???-???-???-???-??? -???-???-???-???-???-??? - 8w 2d 152 lb 6 oz (+6 oz) 124/82 -???-???-???-???-???-??? -???-???-???-???-???-??? - 171 -???-???-???-???-???-??? -???-???-???-???-???-??? - KW- (more content not included)... Normal [facility] Platelet countOrdered By: Lasha Goldman on 01-29-2025 Platelets (Bld) [#/Vol] 375 10*3/uL 150-450 [facility] RBC Auto (Bld) [#/Vol]Ordere d By: Manjula Goldman on 01-29-2025 RBC (Bld) [#/Vol] 3.31 10*6/uL Low 4.2-5.4 [facility] Syphilis Antibodieson 2024 Syphilis Abs Non-Reactive Normal Nonreactive [facility] Comment on above: Performed By: #### L 100.0100, L506.0400, L509.8002, L501.9520, L501.0250, L3890.6006 #### [facility] [address] [place], [address] T4 Free Directon 01-29-2025 T4 FREE DIRECT 0.90 ng/dL Normal 0.76-1.46 [facility] Comment on above: Performed By: #### L 100.0100, L506.0400, L509.8002, L501.9520, L501.0250, L3890.6006 #### [facility] [address] [place], [address] T4 freeOrdered By: Manjula mccloud on 01-29-2025 Free T4 [Mass/Vol] 0.90 ng/dL 0.76-1.46 [facility] TSH DL <= 0.005 mIU/L QnOrde red By: Manjula Goldman on 01-29-2025 TSH Qn 1.190 uIU/mL 0.300-4.200 [facility] Thyroid Stim Hormone (TSH)on 01-29-2025 TSH 1.190 uIU/mL Normal 0.300-4.200 [facility] Comment on above: Performed By: #### L 100.0100, L506.0400, L509.8002, L501.9520, L501.0250, L3890.6006 #### [facility] [address] [place], [place], [address] White blood cell (WBC) count Ordered By: Manjula Goldman on 01-29-2025 WBC (Bld) [#/Vol] 11.2 10*3/uL High 4.4-11.0 [facility] - Chemistry and C hemistry - challengeOrdered By: Manjula Goldman on 01-01-2025 Glucose Ql (U) Negative [facility] - UrinalysisOrder ed By: Manjula Goldman on 01-01-2025 Protein Ql (U) Negative [facility] Grading Machine Operator Office Visit Reporton 01-01-2025 Grading Machine Operator Office Visit Report [facility] [address], [address] [place] [address] OFFICE VISIT Date of Service: 01/01/25 MR#: [id number] Acct: [id number] Name: JIMMY ATWOOD Rep #: [id number] 4 : 1995 Provider: QUITA Tanner ams Age/Sex: 29/F [place] [facility] [place]: Signed Intake Vital Signs 11/27/24 12:32 01/01/25 11:25 01/01/25 11:30 Height 5 ft 7 in 5 ft 7 in 5 ft 7 in Weight: 167 lb 8 oz BMI 26.2 BP 113/71 Intake Visit Reasons: 21 WEEK OB Senior It Recruiter Required: No Is patient in pain?: No Allergies Penicillins Allergy (Intermediate, Verified 01/01/25 11:24) Rash amoxicillin (From Augmentin) Adverse Reaction (Intermediate, Verified 01/01/25 11:24) Rash clavulanic acid (From Augmentin) Adverse Reaction (Intermediate, Verified 01/01/25 11:24) Rash sulfamethoxazole (From Bactrim) Adverse Reaction (Intermediate, Verified 01/01/25 11:24) Rash terbinafine (From Lamisil) Adverse Reaction (Intermediate, Verified 01/01/25 11:24) Rash trimethoprim (From Bactrim) Adverse Reaction (Intermediate, Verified 01/01/25 11:24) Rash Medications ???Medication ???Instructions ???Recorded ???Confirmed ???Type PNV 178-FA 180 mcg-om3 35 mg-dha 1 tab PO DAILY Check with primary 06/01/22 01/01/25 History 25 mg-epa 5 mg-fish oil chew tablet doctor ondansetron HCl 4 mg tablet 4 mg PO Q6-8H PRN nausea and 10/0401/01/25 Rx vomiting #30 tabs Last Menstrual Period: 08/03/24 Zika: Zika virus screening: Negative : No PFSH PFSH Medical History GBS (group B 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), +RV culture, currently Surgical History Hx of tonsillectomy Family History Father Heart disease Social History adopted: No household members: spouse and children housing: house number of children: 1 current occupational status: employed 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 occupational exposures/hazards: No pets and animals: Yes (2) pets and animals: dog(s) history of recent travel: No sexually active: Yes Smoking Status: Never smoker alcohol intake: current alcohol intake frequency: holidays/special occasions only details: Not while substance use type: does not use well-balanced diet: daily or most days caffeine: Yes Type: coffee Number of servings: 1 eating out: rarely or never during the past year weight has: remained stable what type of physical activity do you participate in: walking frequency: 3-4 times per week duration: 15-30 minutes/day [place]/temple: Religious seatbelt use: always do you feel safe at home: Yes 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 Date Name GA/Weeks Outcome Route Bth Weight Gen Labor Lgth Anesthesia Del Locatn Provider FOB 01/23/23 Cm 41 live - full term 9#1oz Male epidural [facility] latia Willard HPI 21 WEEK OB Details: JIMMY ATWOOD is a 29 year old who presents for routine OB visit. OB Visit PARAG Calculator Estimated Delivery Date Method Current WG Current Estimate 05/14/25 Ultrasound #1 21w 0d Other Estimates 05/10/25 LMP (Certain) 21w 4d Expected Delivery Route/Plan Labor Preferences- CB/BF classes: [] labor support person: [] labor intervention preferences: [] pain management options preferred: [] cut cord/dad catch: [] : [] PP control planned: [] discussed possible routes of delivery and associated risks: [] special requests: [] Specific Issue/Plans Covid status: [] Flu vaccine: [] Tdap vaccine: [] Rhogam: [] LARC form signed: [] Problem list reviewed and updated with the most current plan of care details and appropriate orders placed. Relevant counseling for the gestational age provided. Continue routine care and follow up unless otherwise noted in visit notes/problem list details Initial Weight: 152 lb Date -???-???-???-???-???-??? -???-???-???-???-???-??? - EGA Weight BP Urine Prot -???-???-???-???-???-??? -???-???-???-???-???-??? - Glucose FHR FuHt Pres Dilation -???-???-???-???-???-??? -???-???-???-???-???-??? - Effaced St Visit Note 10/04/24 -???-???-???-???-???-??? -???-???-???-???-???-??? - 8w 2d 152 lb 6 oz (+6 oz) 124/82 -???-???-???-???-???-??? -???-???-???-???-???-??? - 171 -???-???-???-???-???-??? -???-???-???-???-???-??? - KW- CRL cons with dates. Declines NIPT. (more content not included)... Normal [facility] - Chemistry and C hemistry - challengeOrdered By: Manjula Goldman on 11-27-2024 Glucose Ql (U) Negative [facility] - UrinalysisOrder ed By: Manjula Goldman on 11-27-2024 Protein Ql (U) Negative [facility] Grading Machine Operator Office Visit Reporton 11-27-2024 Grading Machine Operator Office Visit Report [facility] [address], [address] [place] [address] OFFICE VISIT Date of Service: 11/27/24 MR#: [id number] Acct: [id number] Name: JIMMY ATWOOD Rep #: [id number] 1 : 1995 Provider: QUITA Tanner ams Age/Sex: 29/F Location: [facility] Status: Signed Intake Vital Signs 10/04/24 14:30 11/26/24 14:17 11/27/24 12:29 11/27/24 12:32 Height 5 ft 7 in 5 ft 7 in 5 ft 7 in 5 ft 7 in Weight: 158 lb 2 oz BMI 24.7 BP 101/67 Intake Visit Reasons: 16wk ob Senior It Recruiter Required: No Is patient in pain?: No Allergies Penicillins Allergy (Intermediate, Verified 11/27/24 12:28) Rash amoxicillin (From Augmentin) Adverse Reaction (Intermediate, Verified 11/27/24 12:28) Rash clavulanic acid (From Augmentin) Adverse Reaction (Intermediate, Verified 11/27/24 12:28) Rash sulfamethoxazole (From Bactrim) Adverse Reaction (Intermediate, Verified 11/27/24 12:28) Rash terbinafine (From Lamisil) Adverse Reaction (Intermediate, Verified 11/27/24 12:28) Rash trimethoprim (From Bactrim) Adverse Reaction (Intermediate, Verified 11/27/24 12:28) Rash Medications ???Medication ???Instructions ???Recorded ???Confirmed ???Type PNV 178-FA 180 mcg-om3 35 mg-dha 1 tab PO DAILY Check with primary 06/01/22 11/27/24 History 25 mg-epa 5 mg-fish oil chew tablet doctor ondansetron HCl 4 mg tablet 4 mg PO Q6-8H PRN nausea and 10/0411/27/24 Rx vomiting #30 tabs Last Menstrual Period: 08/03/24 Zika: Zika virus screening: Negative : No PFSH PFSH Medical History GBS (group B 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), +RV culture, currently Surgical History Hx of tonsillectomy Family History Father Heart disease Social History adopted: No household members: spouse and children housing: house number of children: 1 current occupational status: employed 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 occupational exposures/hazards: No pets and animals: Yes (2) pets and animals: dog(s) history of recent travel: No sexually active: Yes Smoking Status: Never smoker alcohol intake: current alcohol intake frequency: holidays/special occasions only details: Not while substance use type: does not use well-balanced diet: daily or most days caffeine: Yes Type: coffee Number of servings: 1 eating out: rarely or never during the past year weight has: remained stable what type of physical activity do you participate in: walking frequency: 3-4 times per week duration: 15-30 minutes/day [place]/temple: Religious seatbelt use: always do you feel safe at home: Yes 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 Date Name GA/Weeks Outcome Route Bth Weight Infant Gen Labor Lgth Anesthesia Del Locatn Provider FOB 01/23/23 Cm 41 live - full term 9#1oz Male epidural [facility] Narcisa Willard HPI 16wk ob Details: JIMMY ATWOOD is a 29 year old who presents for routine OB visit. OB Visit PARAG Calculator Estimated Delivery Date Method Current WG Current Estimate 05/14/25 Ultrasound #1 16w 0d Other Estimates 05/10/25 LMP (Certain) 16w 4d Expected Delivery Route/Plan Labor Preferences- CB/BF classes: [] labor support person: [] labor intervention preferences: [] pain management options preferred: [] cut cord/dad catch: [] : [] PP control planned: [] discussed possible routes of delivery and associated risks: [] special requests: [] Specific Issue/Plans Covid status: [] Flu vaccine: [] Tdap vaccine: [] Rhogam: [] LARC form signed: [] Problem list reviewed and updated with the most current plan of care details and appropriate orders placed. Relevant counseling for the gestational age provided. Continue routine care and follow up unless otherwise noted in visit notes/problem list details Initial Weight: 152 lb Date -???-???-???-???-???-??? -???-???-???-???-???-??? - EGA Weight BP Urine Prot -???-???-???-???-???-??? -???-???-???-???-???-??? - Glucose FHR FuHt Pres Dilation -???-???-???-???-???-??? -???-???-???-???-???-??? - Effaced St Visit Note 10/04/24 -???-???-???-???-???-??? -???-???-???-???-???-??? - 8w 2d 152 lb 6 oz (+6 oz) 124/82 -???-???-???-???-???-??? -???-???-???-???-???-??? - 171 -???-???-???-???-???-??? -???-???-???-???-???-??? - KW- CRL cons with d (more content not included)... Normal [facility] Special Stain Group IIon Special Stain Group II ------- Patient Age/Sex Location Account Attending Physician JIMMY ATWOOD 29/ [facility] [id number] Dr. Ravinder Suazo MD Specimen: [id number] Received: 11/26/24 Status: CARLOS Foley Num: [id number] Spec Type: Fluid Subm Dr: Dr. Ravinder Suazo MD HEADER OPERATION: Fine needle aspiration of right thyroid nodule PRE-OP DIAGNOSIS: Right thyroid nodule TISSUE SUBMITTED: A- Right thyroid nodule DIAGNOSIS CYTOLOGY A. Right thyroid nodule, FNA: * No malignant cells are identified * Benign follicular cells (benign follicular nodule) CYTOLOGY STUDY Slides are reviewed. CYTOLOGY GROSS A. Received is 30 ml of fluid and 4 slides labeled with the patient's name and and designated per the requisition as Right thyroid nodule. Submitted for cytology preparation. Mr 11/27/2024 CPT: 06322 Signed (signature on file) Dr. Lucinda Sutherland, 12/10/24 0852 Normal [facility] Comment on above: Performed By: #### L 100.0100, L506.0400, L509.8002, L501.9520, L501.0250, L3890.6006 #### [facility] [address] [place], [place], [id number] Surgery Visit Reporton 11-26 Surgery Visit Report [facility] [address] [place], [place] [address] OFFICE VISIT Date of Service: 11/26/24 MR#: [id number] Acct: [id number] Name: JIMMY ATWOOD Rep #: [id number] 8 : 1995 Provider: Dr. Ravinder donnelly MD Age/Sex: 29/F Location: [facility] Status: Signed Intake Vital Signs 10/04/24 14:30 11/01/24 14:26 11/26/24 14:17 Height 5 ft 7 in 5 ft 7 in 5 ft 7 in Weight: 160 lb 4 oz BMI 25.0 BP 113/79 Blood Pressure Location Rt brachial Position Sitting Respiration 18 Pulse 63 Pulse Source Monitor Temp 97.2 F L Temp Source Temporal Pulse Oximetry (%) 100 Oxygen Delivery Method room air Intake Visit Reasons: THYROID NODULE Chief Complaint: thyroid nodule Is patient in pain?: No Allergies Penicillins Allergy (Intermediate, Verified 11/26/24 14:18) Rash amoxicillin (From Augmentin) Adverse Reaction (Intermediate, Verified 11/26/24 14:18) Rash clavulanic acid (From Augmentin) Adverse Reaction (Intermediate, Verified 11/26/24 14:18) Rash sulfamethoxazole (From Bactrim) Adverse Reaction (Intermediate, Verified 11/26/24 14:18) Rash terbinafine (From Lamisil) Adverse Reaction (Intermediate, Verified 11/26/24 14:18) Rash trimethoprim (From Bactrim) Adverse Reaction (Intermediate, Verified 11/26/24 14:18) Rash Medications ???Medication ???Instructions ???Recorded ???Confirmed ???Type PNV 178-FA 180 mcg-om3 35 mg-dha 1 tab PO DAILY Check with primary 06/01/22 11/26/24 History 25 mg-epa 5 mg-fish oil chew tablet doctor ondansetron HCl 4 mg tablet 4 mg PO Q6-8H PRN nausea and 10/0411/26/24 Rx vomiting #30 tabs PFSH Medical History GBS (group B 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), +RV culture, currently Surgical History Hx of tonsillectomy Family History Father Heart disease Social History adopted: No household members: spouse and children housing: house number of children: 1 current occupational status: employed 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 occupational exposures/hazards: No pets and animals: Yes (2) pets and animals: dog(s) history of recent travel: No sexually active: Yes Smoking Status: Never smoker alcohol intake: current alcohol intake frequency: holidays/special occasions only details: Not while substance use type: does not use well-balanced diet: daily or most days caffeine: Yes Type: coffee Number of servings: 1 eating out: rarely or never during the past year weight has: remained stable what type of physical activity do you participate in: walking frequency: 3-4 times per week duration: 15-30 minutes/day [place]/temple: Religious seatbelt use: always do you feel safe at home: Yes 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 They are referred for surgical consultation from Ms Diana Méndez NP. This was discovered by patient's mother in August 2024. Patient states that it was initially thought to represent an enlarged lymph node but she remembers it always been nontender. They do not experience difficulty with swallowing. They do not complain of a new cough. They do not appreciate new voice changes. They do not have a history of snoring/sleep apnea. Additionally, their weight has been stable and they do not have a history of weight gain/or an inability to lose despite intentional effort apart from the fact that she is in her second trimester of with her second child. There is no history of recent fatigue. They do not have a history of heat or cold intolerance. Other symptoms include: Pertinent negatives include knockdown worker of significant anxiety, palpitations, temperature dysregulation, unusual sweating, or irregular bowel habits. She does report that she has always been concern for possible thyroid abnormality given the history of hair thinning over the last few years, however, when she raised this concern her labs were always within normal limits. They do not have a family history of thyroid disorders or endocrinopathies. There is no history of prior radiation exposure. Previous work-up has included thyroid ultrasound. This study was performed on 10/11/2024 and showed a right thyroid lobe measuring 4.9 x 2.4 x 3.1 cm. Within this lobe radiology identified a dominant nodule measuring 3.5 x 2.3x 2.6 cm that was described as isoechoic and solid with cystic spaces rated a TI-RADS 3. The left thyroid lobe measured 4.3 x 1.5 x 1.2 cm. No visible mass, cysts, or (more content not included)... Normal [facility] - Chemistry and C hemistry - challengeOrdered By: Carline Bolden on 11-01-2024 Glucose Ql (U) Negative [facility] - UrinalysisOrder ed By: Carline Bolden on 11-01-2024 Protein Ql (U) Negative [facility] Grading Machine Operator Office Visit Reporton 11-01-2024 Grading Machine Operator Office Visit Report [facility], [address] [place] [address] OFFICE VISIT Date of Service: 11/01/24 MR#: [id number] Acct: [id number] Name: JIMMY ATWOOD Rep #: [id number] : 1995 Provider: Dr. Carline Rueda DO Age/Sex: 29/F Location: [facility] Status: Signed Intake Vital Signs 03/06/23 11:36 10/04/24 14:30 11/01/24 14:26 11/01/24 14:26 Height 5 ft 7 in 5 ft 7 in 5 ft 7 in 5 ft 7 in Weight: 150 lb 8 oz BMI 23.6 BP 114/75 Intake Visit Reasons: 12 wk OB Senior It Recruiter Required: No Is patient in pain?: No Allergies Penicillins Allergy (Intermediate, Verified 11/01/24 14:25) Rash amoxicillin (From Augmentin) Adverse Reaction (Intermediate, Verified 11/01/24 14:25) Rash clavulanic acid (From Augmentin) Adverse Reaction (Intermediate, Verified 11/01/24 14:25) Rash sulfamethoxazole (From Bactrim) Adverse Reaction (Intermediate, Verified 11/01/24 14:25) Rash terbinafine (From Lamisil) Adverse Reaction (Intermediate, Verified 11/01/24 14:25) Rash trimethoprim (From Bactrim) Adverse Reaction (Intermediate, Verified 11/01/24 14:25) Rash Medications ???Medication ???Instructions ???Recorded ???Confirmed ???Type PNV 178-FA 180 mcg-om3 35 mg-dha 1 tab PO DAILY Check with primary 06/01/22 11/01/24 History 25 mg-epa 5 mg-fish oil chew tablet doctor ondansetron HCl 4 mg tablet 4 mg PO Q6-8H PRN nausea and 10/0411/01/24 Rx vomiting #30 tabs Last Menstrual Period: 08/03/24 Zika: Zika virus screening: Negative : No PFSH PFSH Medical History GBS (group B 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), +RV culture, currently Surgical History Hx of tonsillectomy Family History Father Heart disease Social History adopted: No household members: spouse and children housing: house number of children: 1 current occupational status: employed 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 occupational exposures/hazards: No pets and animals: Yes (2) pets and animals: dog(s) history of recent travel: No sexually active: Yes Smoking Status: Never smoker alcohol intake: current alcohol intake frequency: holidays/special occasions only details: Not while substance use type: does not use well-balanced diet: daily or most days caffeine: Yes Type: coffee Number of servings: 1 eating out: rarely or never during the past year weight has: remained stable what type of physical activity do you participate in: walking frequency: 3-4 times per week duration: 15-30 minutes/day [place]/temple: Religious seatbelt use: always do you feel safe at home: Yes 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 Date Name GA/Weeks Outcome Route Bth Weight Gen Labor Lgth Anesthesia Del Locatn Provider FOB 01/23/23 Cm 41 live - full term 9#1oz Male epidural [facility] Narcisa Willard HPI 12 wk OB Details: JIMMY ATWOOD is a 29 year old who presents for routine OB visit. OB Visit PARAG Calculator Estimated Delivery Date Method Current WG Current Estimate 05/14/25 Ultrasound #1 12w 2d Other Estimates 05/10/25 LMP (Certain) 12w 6d Expected Delivery Route/Plan Labor Preferences- CB/BF classes: [] labor support person: [] labor intervention preferences: [] pain management options preferred: [] cut cord/dad catch: [] : [] PP control planned: [] discussed possible routes of delivery and associated risks: [] special requests: [] Specific Issue/Plans Covid status: [] Flu vaccine: [] Tdap vaccine: [] Rhogam: [] LARC form signed: [] Problem list reviewed and updated with the most current plan of care details and appropriate orders placed. Relevant counseling for the gestational age provided. Continue routine care and follow up unless otherwise noted in visit notes/problem list details Initial Weight: 152 lb Date -???-???-???-???-???-??? -???-???-???-???-???-??? - EGA Weight BP Urine Prot -???-???-???-???-???-??? -???-???-???-???-???-??? - Glucose FHR FuHt Pres Dilation -???-???-???-???-???-??? -???-???-???-???-???-??? - Effaced St Visit Note 10/04/24 -???-???-???-???-???-??? -???-???-???-???-???-??? - 8w 2d 152 lb 6 oz (+6 oz) 124/82 -???-???-???-???-???-??? -???-???-???-???-???-??? - 171 -???-???-???-???-???-??? -???-???-???-???- (more content not included)... Normal [facility] THYROID PEROXIDASE AB [CCL]o n 10-12-2024 TPO Antibody <3.0 Normal <5.6 [facility] Comment on above: Result Comment: Thyr oid Peroxidase Antibody test is used as an aid in diagnosis of autoimmune thyroid disease. Clinical correlation [place] [address] Kahlil Lubin III, M.D. [id number] Performed By: #### 2 [id number] #### [facility],[address] [place] [address] T4-FREE (FREE THYROXINE)on 0 10-11-2024 Free T4 [Mass/Vol] 1.08 ng/dL Normal 0.76 - 1.46 [facility] Comment on above: Result Comment: P otential of falsely elevated results when biotin concentrations are > 10 ng/mL. Performed By: #### 2 [id number] #### [facility],[address] [place], [place] [address] THYROID PEROXIDASE ANTIBODYo n 10-11-2024 TPO Ab Qn [IU]/mL Normal <5.6 [facility] Comment on above: Order Comment: Speci men Type: BLOOD SPECIMEN Ordering Facility: [facility] Address: [address] [place] [address] Result Comment: Thyr oid Peroxidase Antibody test is used as an aid in diagnosis of autoimmune thyroid disease. Clinical correlation is required. Performed By: #### M ICRO #### [facility] CLIA [id number] [address] [place] [address] [place] TSHon 10-11-2024 TSH Qn 0.64 m[IU]/L Normal 0.35 - 3.74 [facility] Comment on above: Performed By: #### 2 [id number] #### [facility],[address] [place], [place] [id number] [place] THYROIDon 10-11-[address] [address] Patient: JIMMY ATWOOD Phone#: : 1995 Age: 29 Gender: F Pt. Type: Out Account: [id number] Location: [facility] Ordering: YUDI MÉNDEZ Exam Date: 10/11/2024/13:09 Family Phys: Charge Code: 931977 Physician: [place] Order #: [id number] Dose#: PROCEDURE: THYROID ULTRASOUND COMPARISON: None. INDICATIONS: Right neck mass TECHNIQUE: High-resolution ultrasound was performed of the thyroid gland. FINDINGS: RIGHT LOBE: Large isoechoic solid nodule with cystic spaces in the right lobe measuring 34 x 23 x 26 mm. This is a TR 3 nodule. The right lobe measures 4.9 x 2.4 x 3.1 cm. LEFT LOBE: Normal. No visible mass, cyst, calcification, enlargement, or abnormal echotexture. Left lobe measures 4.3 x 1.5 x 1.2 cm. ISTHMUS: Normal. No visible mass, cyst, calcification, enlargement, or abnormal echotexture. Isthmus measures 0.2 cm. OTHER: None. CONCLUSION: 1. Right TR 3 nodule. Recommend fine needle aspiration. Dictated by: Neetu Mata MD on 10/11/2024 at 16:00 Approved by: Neetu Mata MD on 10/11/2024 at 16:08 Normal [facility] PAP I-G w/rfx hrHPV-Aptimaon 10-09-2024 ADEQ Comment Normal . [facility] Comment on above: Order Comment: Speci men Comment: [id number] Comment: Source.............Cervix;EndocervixSpecimen Comment: Other..............Specimen Comment: No. of containers..01 ThinPrep Vial Result Comment: Sati sfactory for evaluation. No endocervical component is identified. Performed By: #### L 100.0100, L506.0400, L509.8002, L501.9520, L501.0250, L3890.6006 #### [facility] [address] [place], [place], [id number] COMM . Normal . [facility] Comment on above: Order Comment: Speci men Comment: [id number] Comment: Source.............Cervix;EndocervixSpecimen Comment: Other..............Specimen Comment: No. of containers..01 ThinPrep Vial Performed By: #### L 100.0100, L506.0400, L509.8002, L501.9520, L501.0250, L3890.6006 #### [facility] [address] [place], [place], [id number] COMMENT Comment Normal . [facility] Comment on above: Order Comment: Speci men Comment: [id number] Comment: Source.............Cervix;EndocervixSpecimen Comment: Other..............Specimen Comment: No. of containers..01 ThinPrep Vial Result Comment: This liquid based ThinPrep(R) pap test was screened with the use of an image guided system. Performed By: #### L 100.0100, L506.0400, L509.8002, L501.9520, L501.0250, L3890.6006 #### [facility] Laboratory [address] [place], [place], [id number] DIAG Comment Normal . [facility] Comment on above: Order Comment: Speci men Comment: [id number] Comment: Source.............Cervix;EndocervixSpecimen Comment: Other..............Specimen Comment: No. of containers..01 ThinPrep Vial Result Comment: NEGA TIVE FOR INTRAEPITHELIAL LESION OR MALIGNANCY. Performed By: #### L 100.0100, L506.0400, L509.8002, L501.9520, L501.0250, L3890.6006 #### [facility] [address] [place], [place], [id number] HPV RFLX Comment Normal . [facility] Comment on above: Order Comment: Speci men Comment: [id number] Comment: Source.............Cervix;EndocervixSpecimen Comment: Other..............Specimen Comment: No. of containers..01 ThinPrep Vial Result Comment: The HPV DNA reflex criteria were not met with this specimen result therefore, no HPV testing was performed. Performed at: [address] [id number] Compressor Station Chief Engineer: Chayo Yi MD, Phone: [phone] Performed By: #### L 100.0100, L506.0400, L509.8002, L501.9520, L501.0250, L3890.6006 #### [facility] [address] [place], [address] PAPSMR Comment Normal . [facility] Comment on above: Order Comment: Speci men Comment: [id number] Comment: Source.............Cervix;EndocervixSpecimen Comment: Other..............Specimen Comment: No. of containers..01 ThinPrep Vial Result Comment: The Pap smear is a screening test designed to aid in the detection of premalignant and malignant conditions of the uterine cervix. It is not a diagnostic procedure and should not be used as the sole means of detecting cervical cancer. Both false-positive and false-negative reports do occur. Performed By: #### L 100.0100, L506.0400, L509.8002, L501.9520, L501.0250, L3890.6006 #### [facility] [address] [place], [address] PERFORM Comment Normal . [facility] Comment on above: Order Comment: Speci men Comment: [id number] Comment: Source.............Cervix;EndocervixSpecimen Comment: Other..............Specimen Comment: No. of containers..01 ThinPrep Vial Result Comment: Tunde Braun, Liquid Chlorine Operator (ASCP) Performed By: #### L 100.0100, L506.0400, L509.8002, L501.9520, L501.0250, L3890.6006 #### [facility] [address] [place], [address] HIV - WCHon 10-08-2024 HIV Non-Reactive Normal Nonreactive [facility] Comment on above: Performed By: #### L 100.0100, L506.0400, L509.8002, L501.9520, L501.0250, L3890.6006 #### [facility] [address] [place], [address] Chlamydia/GC JOSE J aptimaon CHLAMY,NUC ACID Negative Normal Negative [facility] Comment on above: Performed By: #### L 100.0100, L506.0400, L509.8002, L501.9520, L501.0250, L3890.6006 #### [facility] [address] [place], [address] GC BY NUC ACID Negative Normal Negative [facility] Comment on above: Result Comment: Perf ormed at: =G - [facility] [address] [place] [id number] Compressor Station Chief Engineer: Chayo Yi MD, Phone: [phone] Performed By: #### L 100.0100, L506.0400, L509.8002, L501.9520, L501.0250, L3890.6006 #### [facility] [address] [place], [place], [id number] Urine Cultureon 10-05-2024 URC Culture exhibits no growth. Normal [facility] Comment on above: Performed By: #### L 100.0100, L506.0400, L509.8002, L501.9520, L501.0250, L3890.6006 #### [facility] [address] [place], [place], [id number] Absolute lymphocyte countOrd ered By: Manjula Goldman on 10-04-2024 Lymphocytes Auto (Unsp spec) [#/Vol] 2.15 10*3/uL 0.83-4.51 [facility] Absolute neutrophil countOrd ered By: Manjula Goldman on 10-04-2024 Neutrophils (Bld) [#/Vol] 10.2 10*3/uL High 2.0-7.7 [facility] Automated lymphocyte count a s percentage of total leukocytesOrdered By: Manjula Goldman on 10-04-2024 Lymphocytes/100 WBC Auto (Unsp spec) 15.8 % Low 19-41 [facility] Basophil percentageOrdered B y: Manjula Goldman on 10-04-2024 Basophils/100 WBC (Bld) 0.4 % 0-[address] [facility] CBC W/Diff, Automatedon 09-21 Absolute Lymph 2.15 X10 3/uL Normal 0.83-4.51 [facility] Comment on above: Performed By: #### L 3890.6100, L3890.6300, L100.0100, L509.8000, L509.4005, BTS #### [facility] [address] [place], [address] Absolute Neut 10.2 X10 3/uL High 2.0-7.7 [facility] Comment on above: Performed By: #### L 3890.6100, L3890.6300, L100.0100, L509.8000, L509.4005, BTS #### [facility] [address] [place], [address] Basophils/100 WBC (Bld) 0.4 % Normal 0-[address] [facility] Comment on above: Performed By: #### L 3890.6100, L3890.6300, L100.0100, L509.8000, L509.4005, BTS #### [facility] [address] [place], [address] Eosinophils/100 WBC (Bld) 0.7 % Normal 0-5 [facility] Comment on above: Performed By: #### L 3890.6100, L3890.6300, L100.0100, L509.8000, L509.4005, BTS #### [facility] [address] [place], [address] Erythrocyte distribution width (RBC) [Ratio] 12.3 % Normal 11.6-14.6 [facility] Comment on above: Performed By: #### L 3890.6100, L3890.6300, L100.0100, L509.8000, L509.4005, BTS #### [facility] [address] [place], [address] Hematocrit (Bld) [Volume fraction] 36.7 % Low 37-47 [facility] Comment on above: Performed By: #### L 3890.6100, L3890.6300, L100.0100, L509.8000, L509.4005, BTS #### [facility] [address] [place], [address] Hemoglobin (Bld) [Mass/Vol] 12.6 g/dL Normal 12.0-15.0 [facility] Comment on above: Performed By: #### L 3890.6100, L3890.6300, L100.0100, L509.8000, L509.4005, BTS #### [facility] [address] [place], [address] IG% 0.700 Normal 0.0-0.9 [facility] Comment on above: Result Comment: IG% - Immature Granulocytes (promyelocytes, myelocytes and metamyelocytes) > 1% indicates that a LEFT SHIFT is Present. Performed By: #### L 3890.6100, L3890.6300, L100.0100, L509.8000, L509.4005, BTS #### [facility] [address] [place], [address] Lymphocytes/100 WBC (Bld) 15.8 % Low 19-41 [facility] Comment on above: Performed By: #### L 3890.6100, L3890.6300, L100.0100, L509.8000, L509.4005, BTS #### [facility] [address] [place], [address] MCH (RBC) [Entitic mass] 31.3 pg Normal 27.0-32.0 [facility] Comment on above: Performed By: #### L 3890.6100, L3890.6300, L100.0100, L509.8000, L509.4005, BTS #### [facility] [address] [place], [address] MCHC (RBC) [Mass/Vol] 34.3 g/dL Normal 32-36 [facility] Comment on above: Performed By: #### L 3890.6100, L3890.6300, L100.0100, L509.8000, L509.4005, BTS #### [facility] [address] [place], [address] MCV (RBC) [Entitic vol] 91.3 fL Normal 81-[address] [facility] Comment on above: Performed By: #### L 3890.6100, L3890.6300, L100.0100, L509.8000, L509.4005, BTS #### [facility] [address] [place], [address] Monocytes/100 WBC (Bld) 7.4 % Normal 0-[address] [facility] Comment on above: Performed By: #### L 3890.6100, L3890.6300, L100.0100, L509.8000, L509.4005, BTS #### [facility] [address] [place], [address] Neutrophils/100 WBC (Bld) 75.0 % High 47-70 [facility] Comment on above: Performed By: #### L 3890.6100, L3890.6300, L100.0100, L509.8000, L509.4005, BTS #### [facility] [address] [place], [address] Nucleated RBC (Bld) [#/Vol] 0 10*3/uL Normal 0-5 [facility] Comment on above: Performed By: #### L 3890.6100, L3890.6300, L100.0100, L509.8000, L509.4005, BTS #### [facility] [address] [place], [address] Platelet mean volume (Bld) [Entitic vol] 9.6 fL Normal 6.2-12.0 [facility] Comment on above: Performed By: #### L 3890.6100, L3890.6300, L100.0100, L509.8000, L509.4005, BTS #### [facility] [address] [place], [address] Platelets (Bld) [#/Vol] 389 10*3/uL Normal 150-450 [facility] Comment on above: Performed By: #### L 3890.6100, L3890.6300, L100.0100, L509.8000, L509.4005, BTS #### [facility] [address] [place], [address] RBC (Bld) [#/Vol] 4.02 10*6/uL Low 4.2-5.4 [facility] Comment on above: Performed By: #### L 3890.6100, L3890.6300, L100.0100, L509.8000, L509.4005, BTS #### [facility] [address] [place], [address] RDW SD 41.1 fl Normal 35.1-43.9 [facility] Comment on above: Performed By: #### L 3890.6100, L3890.6300, L100.0100, L509.8000, L509.4005, BTS #### [facility] [address] [place], [address] WBC (Bld) [#/Vol] 13.6 10*3/uL High 4.4-11.0 [facility] Comment on above: Performed By: #### L 3890.6100, L3890.6300, L100.0100, L509.8000, L509.4005, BTS #### [facility] [address] [place], [address] Cervical or vagninal specime n microscopic examination by cytology stain (reported asOrdered By: Manjula Goldman on 10-04-2024 Cytology report Cyto stain Doc (Cvx/Vag) Comment . [facility] Comment on above: The Pap smear is a s creening test designed to aid in thedetection of premalignant and malignant conditions of theuterine cervix. It is not a diagnostic procedure andshould not be used as the sole means of detecting cervicalcancer. Both false-positive and false-negative reports dooccur. Chlamydia trachomatis rRNA d etection by probe and target amplification methodOrdered By: Manjula Goldman on 10-04-2024 C. trachomatis rRNA JOSE J+probe Ql (Unsp spec) Negative Negative [facility] Eosinophil percentageOrdered By: Manjula Goldman on 10-04-2024 Eosinophils/100 WBC (Bld) 0.7 % 0-5 [facility] Erythrocyte distribution wid th ratioOrdered By: Manjula Goldman on 10-04-2024 Erythrocyte distribution width (RBC) [Ratio] 12.3 % 11.6-14.6 [facility] Erythrocyte distribution wid th standard deviationOrdered By: Manjula Goldman on 10-04-2024 Erythrocyte distribution width (RBC) [Ratio] 41.1 fl 35.1-43.9 [facility] HIV 1 and HIV-2 antibody ass ay with HIV-1 p24 antigen detectionOrdered By: Manjula Goldman on 10-04-2024 HIV 1+2 Ab+HIV1 p24 Ag IA Ql Non-Reactive Nonreactive [facility] Hematocrit Auto (Bld) [Volum e fraction]Ordered By: Manjula Goldman on 10-04-2024 Hematocrit (Bld) [Volume fraction] 36.7 % Low 37-47 [facility] Hemoglobin measurementOrdere d By: Manjula Goldman on 10-04-2024 Hemoglobin (Bld) [Mass/Vol] 12.6 g/dL 12.0-15.0 [facility] Hepatitis B Surface Antigeno n 10-04-2024 HEP B Surf Ag Non-Reactive Normal Nonreactive [facility] Comment on above: Order Comment: Reaso n for Exam: Performed By: #### L 100.0100, L506.0400, L509.8002, L501.9520, L501.0250, L3890.6006 #### [facility] [place], [address] Hepatitis C Antibodyon 10-04 Hepatitis C AB Non-Reactive Normal Nonreactive [facility] Comment on above: Order Comment: Reaso n for Exam: Result Comment: Non Reactive: < 0.8 Equivocal: >/= 0.8 to < 1.0 Reactive: >/= 1.0 The CDC requires that a reactive/equivocal HCV antibody result be sent out for confirmation. HCV Quant by PCR testing. Performed By: #### L 100.0100, L506.0400, L509.8002, L501.9520, L501.0250, L3890.6006 #### [facility] [address] [place], [address] Immature granulocytes/100 WB C Auto (Bld)Ordered By: Manjula Goldman on 10-04-2024 Immature granulocytes/100 WBC (Bld) 0.700 % 0.0-0.9 [facility] Comment on above: IG% - Immature Granu locytes (promyelocytes, myelocytes and metamyelocytes) > 1% indicates that a LEFT SHIFT is Present. L509.8000on 10-04-2024 Syphilis Abs Non-Reactive Normal [facility] Comment on above: Order Comment: Reaso n for Exam: Performed By: #### L 3890.6100, L3890.6300, L100.0100, L509.8000, L509.4005, BTS #### [facility] [address] [place], [address] Laboratory - CytologyOrdered By: Manjula Goldman on 10-04-2024 Public Health Advisor Cyto stain Nom (Cvx/Vag) [ID] Comment . [facility] Comment on above: Margarita Manzo-Ab divinai, Liquid Chlorine Operator (ASCP) Laboratory - Miscellaneous t estsOrdered By: Manjula Goldman on 10-04-2024 Service comment (Unsp spec) [Interp] . . [facility] MCV (mean corpuscular volume ) determinationOrdered By: Manjula Goldman on 10-04-2024 MCV (RBC) [Entitic vol] 91.3 fL 81-[address] [facility] Mean corpuscular hemoglobin (MCH) determinationOrdered By: Manjula Goldman on 10-04-2024 MCH (RBC) [Entitic mass] 31.3 pg 27.0-32.0 [facility] Mean corpuscular hemoglobin concentration (MCHC) determinationOrdered By: Manjula Goldman on 10-04-2024 MCHC (RBC) [Mass/Vol] 34.3 g/dL 32-36 [facility] Mean platelet volume determi nationOrdered By: Manjula Goldman on 10-04-2024 Platelet mean volume (Bld) [Entitic vol] 9.6 fL 6.2-12.0 [facility] Monocyte percentageOrdered B y: Manjula Goldman on 10-04-2024 Monocytes/100 WBC (Bld) 7.4 % 0-[address] [facility] Neisseria gonorrhoeae nuclei c acid detection by amplified probe techniqueOrdered By: Manjula Goldamn on 10-04-2024 N. gonorrhoeae DNA JOSE J+probe Ql (Unsp spec) Negative Negative [facility] Comment on above: Performed at: =[address] [id number] Director: Chayo Yi MD, Phone: [phone] Neutrophil percentageOrdered By: Manjula Goldman on 10-04-2024 Neutrophils/100 WBC (Bld) 75.0 % High 47-70 [facility] No Panel InformationOrdered By: Manjula Goldman on 10-04-2024 Pap Smear Specimen Adequacy Comment . [facility] Comment on above: Satisfactory for neetu luation. No endocervical component is identified. Nucleated red blood cell per centageOrdered By: Manjula Goldman on 10-04-2024 Nucleated RBC/100 WBC (Bld) [Ratio] 0 % 0-5 [facility] Grading Machine Operator Office Visit Reporton 10-04-2024 Grading Machine Operator Office Visit Report [facility] [address], [address] [place] [address] OFFICE VISIT Date of Service: 10/04/24 MR#: [id number] Acct: [id number] Name: JIMMY ATWOOD Rep #: [id number] 2 : 1995 Provider: QUITA Tanner ams Age/Sex: 29/F Location: [facility] Status: Signed Intake Vital Signs 03/06/23 11:36 10/04/24 14:30 Height 5 ft 7 in 5 ft 7 in Weight: 152 lb 6 oz BMI 23.8 BP 124/82 H Intake Visit Reasons: NOB LMP 08/03 Chief Complaint: New OB Is patient in pain?: No Allergies Penicillins Allergy (Intermediate, Verified 10/04/24 14:33) Rash amoxicillin (From Augmentin) Adverse Reaction (Intermediate, Verified 10/04/24 14:33) Rash clavulanic acid (From Augmentin) Adverse Reaction (Intermediate, Verified 10/04/24 14:33) Rash sulfamethoxazole (From Bactrim) Adverse Reaction (Intermediate, Verified 10/04/24 14:33) Rash terbinafine (From Lamisil) Adverse Reaction (Intermediate, Verified 10/04/24 14:33) Rash trimethoprim (From Bactrim) Adverse Reaction (Intermediate, Verified 10/04/24 14:33) Rash Medications ???Medication ???Instructions ???Recorded ???Confirmed ???Type PNV 178-FA 180 mcg-om3 35 mg-dha 1 tab PO DAILY Check with primary 06/01/22 10/04/24 History 25 mg-epa 5 mg-fish oil chew tablet doctor ondansetron HCl 4 mg tablet 4 mg PO Q6-8H PRN nausea and 10/0410/04/24 Rx vomiting #30 tabs Last Menstrual Period: 08/03/24 : No PFSH PFSH Medical History GBS (group B 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), +RV culture, currently Surgical History Hx of tonsillectomy Family History Father Heart disease Social History adopted: No household members: spouse and children housing: house number of children: 1 service: No current occupational status: employed 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 occupational exposures/hazards: No pets and animals: Yes (2) pets and animals: dog(s) history of recent travel: No sexually active: Yes Smoking Status: Never smoker alcohol intake: current alcohol intake frequency: holidays/special occasions only details: Not while substance use type: does not use well-balanced diet: daily or most days caffeine: Yes Type: coffee Number of servings: 1 eating out: rarely or never during the past year weight has: remained stable what type of physical activity do you participate in: walking frequency: 3-4 times per week duration: 15-30 minutes/day [place]/temple: Religious seatbelt use: always do you feel safe at home: Yes 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 Date Name GA/Weeks Outcome Route Bth Weight Infant Gen Labor Lgth Anesthesia Del Locatn Provider FOB 01/23/23 [place] 41 live - full term 9#1oz [facility] HPI NOB LMP 08/03 Details: JIMMY ATWOOD is a 29 year old who presents for New OB visit. OB Visit PARAG Calculator Estimated Delivery Date Method Current WG Current Estimate 05/14/25 Ultrasound #1 8w 2d Other Estimates 05/10/25 LMP (Certain) 8w 6d Comments: HIV: Urine Culture: Sequential Screen: NIPT Screen: Estimated Due Date: 05/10/25 Expected Delivery Route/Plan Labor Preferences- CB/BF classes: [] labor support person: [] labor intervention preferences: [] pain management options preferred: [] cut cord/dad catch: [] : [] PP control planned: [] discussed possible routes of delivery and associated risks: [] special requests: [] Specific Issue/Plans Covid status: [] Flu vaccine: [] Tdap vaccine: [] Rhogam: [] LARC form signed: [] Problem list reviewed and updated with the most current plan of care details and appropriate orders placed. Relevant counseling for the gestational age provided. Continue routine care and follow up unless otherwise noted in visit notes/problem list details Initial Weight: 152 lb Date -???-???-???-???-???-??? -???-???-???-???-???-??? - EGA Weight BP Urine Prot -???-???-???-???-???-??? -???-???-???-???-???-??? - Glucose FHR FuHt Pres Dilation -???-???-???-???-???-??? -???-???-???-???-???-??? - Effaced St Visit Note 10/04/24 -???-???-???-???-???-??? -???-???-???-???-???-??? - 8w 2d 152 lb 6 oz (+6 oz) 124/82 -???-???-???-???-???-??? -???-???-???-???-???-??? - 171 (more content not included)... Normal [facility] Platelet countOrdered By: Lasha Goldman on 10-04-2024 Platelets (Bld) [#/Vol] 389 10*3/uL 150-450 [facility] RBC Auto (Bld) [#/Vol]Ordere d By: Manjula Goldman on 10-04-2024 RBC (Bld) [#/Vol] 4.02 10*6/uL Low 4.2-5.4 [facility] Rubella IgGon 10-04-2024 Rubella IgG Reactive Normal Nonreactive [facility] Comment on above: Order Comment: Reaso n for Exam: Result Comment: Anti body Results Interpretation of Immune Status Non Reactive Presumed Non-Immune Equivocal Equivocal Reactive Presumed Immune Performed By: #### L 3890.6100, L3890.6300, L100.0100, L509.8000, L509.4005, BTS #### [facility] [address] [place], [address] Serum Treponema species anti body detectionOrdered By: Manjula Goldman on 10-04-2024 Treponema sp Ab Ql (S) Non-Reactive [facility] Type AND Screenon 10-04-2024 Ab SCREEN GEL Negative Normal [facility] Comment on above: Order Comment: PN Performed By: #### L 3890.6100, L3890.6300, L100.0100, L509.8000, L509.4005, BTS #### [facility] [address] [place], [address] ABO and Rh group Nom (Bld) Blood group O Rh(D) positive Normal [facility] Comment on above: Order Comment: PN Performed By: #### L 3890.6100, L3890.6300, L100.0100, L509.8000, L509.4005, BTS #### [facility] [address] [place], [address] Urine cultureOrdered By: Jared Goldman on 10-04-2024 Bacteria identified Cx Nom (U) Culture exhibits no growth. [facility] White blood cell (WBC) count Ordered By: Manjula Goldman on 10-04-2024 WBC (Bld) [#/Vol] 13.6 10*3/uL High 4.4-11.0 [facility] Absolute lymphocyte countOrd ered By: Roxann Michaels on 06-29-2023 Lymphocytes Auto (Unsp spec) [#/Vol] 2.73 10*3/uL 0.83-4.51 [facility] Basophil percentageOrdered B y: Roxann Michaels on 06-29-2023 Basophils/100 WBC (Bld) 1.1 % 0-[address] [facility] Bilirubin [Mass/Vol] 1.50 mg/dL 0.20-1.00 [facility] Comment on above: For patients on eltr ombopag therapy, use of Dimension Bond TBIL is not recommended. Chloride [Moles/Vol] 106 mmol/L 98-107 [facility] Eosinophils/100 WBC (Bld) 5.4 % 0-5 [facility] Glucose [Mass/Vol] 89 mg/dL 74-106 [facility] Neutrophils (Bld) [#/Vol] 3.4 10*3/uL 2.0-7.7 [facility] Neutrophils/100 WBC (Bld) 46.9 % 47-70 [facility] Potassium [Moles/Vol] 3.6 mmol/L 3.5-5.1 [facility] Protein [Mass/Vol] 7.4 g/dL 6.4-8.2 [facility] Sodium [Moles/Vol] 140 mmol/L 136-145 [facility] WBC (Bld) [#/Vol] 7.2 10*3/uL 4.4-11.0 [facility] Blood erythrocytes count (nu mber/volume)Ordered By: Roxann Michaels on 06-29-2023 RBC (Bld) [#/Vol] 4.40 10*6/uL 4.2-5.4 [facility] Blood hemoglobin measurement (mass/volume)Ordered By: Roxann Michaels on 06-29-2023 Hemoglobin (Bld) [Mass/Vol] 13.3 g/dL 12.0-15.0 [facility] Blood lymphocytes/100 leukoc ytesOrdered By: Roxann Michaels on 06-29-2023 Lymphocytes/100 WBC (Bld) 37.7 % 19-41 [facility] Blood monocytes/100 leukocyt esOrdered By: Roxann Michaels on 06-29-2023 Monocytes/100 WBC (Bld) 8.6 % 0-[address] [facility] Blood platelet mean volumeOr dered By: Roxann Michaels on 06-29-2023 Platelet mean volume (Bld) [Entitic vol] 9.1 fL 6.2-12.0 [facility] Determination of erythrocyte mean corpuscular volume (MCV)Ordered By: Roxann Michaels on 06-29-2023 MCV (RBC) [Entitic vol] 90.7 fL 81-[address] [facility] Hematocrit Auto (Bld) [Volum e fraction]Ordered By: Roxann Michaels on 06-29-2023 Hematocrit (Bld) [Volume fraction] 39.9 % 37-47 [facility] - Chemistry and C hemistry - challengeOrdered By: Roxann Michaels on 06-29-2023 ALP [Catalytic activity/Vol] 106 U/L 45-117 [facility] ALT [Catalytic activity/Vol] 18 U/L 13-56 [facility] CO2 [Moles/Vol] 28.0 mmol/L 21.0-32.0 [facility] Globulin (S) [Mass/Vol] 3.6 g/dL 2.2-4.[address] [facility] T4 [Mass/Vol] 8.9 ug/dL 4.8-13.9 [facility] Urea nitrogen/Creatinine [Mass ratio] 17.8 mg/mg 10-20 [facility] - Hematology and Cell countsOrdered By: Roxann Michaels on 06-29-2023 Erythrocyte distribution width (RBC) [Entitic vol] 40.7 fL 35.1-43.9 [facility] Erythrocyte distribution width (RBC) [Ratio] 12.2 % 11.6-14.6 [facility] Immature granulocytes/100 WBC (Bld) 0.300 % 0.0-0.9 [facility] Comment on above: IG% - Immature Granu locytes (promyelocytes, myelocytes and metamyelocytes) > 1% indicates that a LEFT SHIFT is Present. MCH (RBC) [Entitic mass] 30.2 pg 27.0-32.0 [facility] Nucleated RBC/100 WBC (Bld) [Ratio] 0 % 0-5 [facility] MCHC Auto (RBC) [Mass/Vol]Or dered By: Roxann Michaels on 06-29-2023 MCHC (RBC) [Mass/Vol] 33.3 g/dL 32-36 [facility] Mitotic spindle apparatus Ab [Titer] in Serum or PlasmaOrdered By: Roxann Michaels on 06-29-2023 Mitotic spindle apparatus Ab [Titer] Not Reportable [facility] No Panel InformationOrdered By: Roxann Michaels on 06-29-2023 SARAI Nuclear Membrane Pattern Not Reportable [facility] Estimated GFR (MDRD) Amer 122 mL/min >60 [facility] Comment on above: GFR Calc Estimated GFR (MDRD) Non-Af Amer 101 mL/min >60 [facility] Comment on above: Non- GFR Calc Thyroid Stimulating Hormone (TSH) 1.55 uIU/mL 0.358-3.74 [facility] Total Triiodothyronine 1.35 ng/mL 0.6-1.81 [facility] Platelets bldOrdered By: Ermias Michaels on 06-29-2023 Platelets (Bld) [#/Vol] 404 10*3/uL 150-450 [facility] Serum midbody antibody titer by immunofluorescenceOrdered By: Roxann Michaels on 06-29-2023 Midbody Ab IF (S) [Titer] Not Reportable [facility] Serum multiple nuclear dot p attern antinuclear IgG antibody (SARAI) titer by immunofluoOrdered By: Roxann Michaels on 06-29-2023 Multiple nuclear dots nuclear IgG pattern IF (S) [Titer] Not Reportable [facility] Serum neuronal nuclear antib arvin detection by immunofluorescenceOrdered By: Roxann Michaels on 06-29-2023 Neuronal nuclear Ab IF Ql (S) Not Reportable [facility] Serum nuclear antibody patte rn homogenous titer by immunofluorescenceOrdered By: Roxann Michaels on 06-29-2023 Homogenous nuclear Ab pattern IF (S) [Titer] Not Reportable [facility] Serum nuclear antibody titer by immunofluorescenceOrdered By: Roxann Michaels on 06-29-2023 Nuclear Ab IF (S) [Titer] Negative . [facility] Comment on above: Negative <1:80 Borde rline 1:80 Positive >1:80ICAP nomenclature: [id number] more information about Hep-2 cell patterns useANApatterns.org, the official website for theInternational Consensus on Antinuclear Antibody (SARAI)Patterns (ICAP).Performed at: [facility] Lab[place] [id number] Director: Guzman Darnell PhD, Phone: [phone] Serum or plasma albumin norma urement (mass/volume)Ordered By: Roxann Michaels on 06-29-2023 Albumin [Mass/Vol] 3.8 g/dL 3.2-5.0 [facility] Serum or plasma albumin/glob ulin mass ratioOrdered By: Roxann Michaels on 06-29-2023 Albumin/Globulin [Mass ratio] 1.1 {ratio} 0.9-2.4 [facility] Serum or plasma calcium norma urement (mass/volume)Ordered By: Roxann Michaels on 06-29-2023 Calcium [Mass/Vol] 9.0 mg/dL 8.5-10.1 [facility] Serum or plasma creatinine m easurement (mass/volume)Ordered By: Roxann Michaels on 06-29-2023 Creatinine [Mass/Vol] 0.73 mg/dL 0.55-1.02 [facility] Comment on above: The validity of the calculated GFR & GFRAA in patients over 70 years has not been determined. Clinical correlation is essential. Serum or plasma ferritin shekhar surement (mass/volume)Ordered By: Roxann Michaels on 06-29-2023 Ferritin [Mass/Vol] 25 ng/mL 8-252 [facility] Serum or plasma thyroperoxid ase antibody assay (units/volume)Ordered By: Roxann Michaels on 06-29-2023 TPO Ab Qn [IU]/mL 0-34 [facility] Comment on above: Performed at: [place] [id number] Director: Guzman Darnell PhD, Phone: [phone] Serum or plasma urea nitroge n measurement (mass/volume)Ordered By: Roxann Michaels on 06-29-2023 Urea nitrogen [Mass/Vol] 13 mg/dL 7-18 [facility] Serum proliferating cell nuc lear antigen (PCNA) antibody titer by immunofluorescenceOrdered By: Roxann Michaels on 06-29-2023 PCNA extractable nuclear Ab IF (S) [Titer] Not Reportable [facility] Serum speckled nuclear antib arvin pattern titerOrdered By: Roxann Michaels on 06-29-2023 Speckled nuclear Ab pattern (S) [Titer] Not Reportable [facility] Thin prep Papanicolaou smear with manual screeningOrdered By: Roxann Michaels on 06-29-2023 Thin prep Papanicolaou smear with manual screening 9 U/L 15-37 [facility] Thin prep Papanicolaou smear with manual screening 6 5-15 [facility] Thin prep Papanicolaou smear with manual screening Not Reportable [facility] Glucose Glucometer (BldC) [M ass/Vol]Ordered By: Payal Hutchins on 01-24-2023 Glucose [Mass/Vol] 86 mg/dL 74-106 [facility] Comment on above: MANAGEMENT OF PATIEN T CARE PER NURSING PROTOCOL Absolute lymphocyte countOrd ered By: Dr. Gay on 01-23-2023 Lymphocytes Auto (Unsp spec) [#/Vol] 1.56 10*3/uL 0.83-4.51 [facility] Basophil percentageOrdered B y: Dr. Gay on 01-23-2023 Basophils/100 WBC (Bld) 0.3 % 0-[address] [facility] Eosinophils/100 WBC (Bld) 0.7 % 0-5 [facility] Neutrophils (Bld) [#/Vol] 6.4 10*3/uL 2.0-7.7 [facility] Neutrophils/100 WBC (Bld) 72.8 % 47-70 [facility] WBC (Bld) [#/Vol] 8.7 10*3/uL 4.4-11.0 [facility] Blood erythrocytes count (nu mber/volume)Ordered By: Dr. Gay on 01-23-2023 RBC (Bld) [#/Vol] 3.62 10*6/uL 4.2-5.4 [facility] Blood hemoglobin measurement (mass/volume)Ordered By: Dr. Gay on 01-23-2023 Hemoglobin (Bld) [Mass/Vol] 11.1 g/dL 12.0-15.0 [facility] Blood lymphocytes/100 leukoc ytesOrdered By: Dr. Gay on 01-23-2023 Lymphocytes/100 WBC (Bld) 17.9 % 19-41 [facility] Blood monocytes/100 leukocyt esOrdered By: [address] Gay on 01-23-2023 Monocytes/100 WBC (Bld) 7.3 % 0-10 [facility] Blood platelet mean volumeOr dered By: Dr. Gay on 01-23-2023 Platelet mean volume (Bld) [Entitic vol] 11.0 fL 6.2-12.0 [facility] Determination of erythrocyte mean corpuscular volume (MCV)Ordered By: Dr. Gay on 01-23-2023 MCV (RBC) [Entitic vol] 92.8 fL 81-[address] [facility] Hematocrit Auto (Bld) [Volum e fraction]Ordered By: Dr. Gay on 01-23-2023 Hematocrit (Bld) [Volume fraction] 33.6 % 37-47 [facility] - Hematology and Cell countsOrdered By: Dr. Gay on 01-23-2023 Erythrocyte distribution width (RBC) [Entitic vol] 48.1 fL 35.1-43.9 [facility] Erythrocyte distribution width (RBC) [Ratio] 14.3 % 11.6-14.6 [facility] Immature granulocytes/100 WBC (Bld) 1.000 % 0.0-0.9 [facility] Comment on above: IG% - Immature Granu locytes (promyelocytes, myelocytes and metamyelocytes) > 1% indicates that a LEFT SHIFT is Present. MCH (RBC) [Entitic mass] 30.7 pg 27.0-32.0 [facility] Nucleated RBC/100 WBC (Bld) [Ratio] 0 % 0-5 [facility] MCHC Auto (RBC) [Mass/Vol]Or dered By: Dr. Gay on 01-23-2023 MCHC (RBC) [Mass/Vol] 33.0 g/dL 32-36 [facility] Platelets bldOrdered By: Dr. Gay on 01-23-2023 Platelets (Bld) [#/Vol] 251 10*3/uL 150-450 [facility] Serum Treponema species anti body detectionOrdered By: Dr. Gay on 01-23-2023 Treponema sp Ab Ql (S) Non-Reactive [facility] Laboratory - Chemistry and C hemistry - challengeon 01-18-2023 Glucose Ql (U) Negative [facility] Laboratory - Urinalysison Protein Ql (U) Trace [facility] Laboratory - Chemistry and C hemistry - challengeon 01-09-2023 Glucose Ql (U) Negative [facility] - Urinalysison Protein Ql (U) Negative [facility] - Chemistry and C hemistry - challengeon 01-03-2023 Glucose Ql (U) Negative [facility] - Urinalysison Protein Ql (U) Negative [facility] - Chemistry and C hemistry - challengeon 12-28-2022 Glucose Ql (U) Negative [facility] Laboratory - Urinalysison Protein Ql (U) Negative [facility] No Panel InformationOrdered By: Dr. Bolden on 12-24-2022 Group B Streptococcus Culture Streptococcus agalactiae (B) [facility] Laboratory - Chemistry and C hemistry - challengeon 12-20-2022 Glucose Ql (U) Negative [facility] - Urinalysison Protein Ql (U) Negative [facility] - Chemistry and C hemistry - challengeon 12-07-2022 Glucose Ql (U) Negative [facility] - Urinalysison Protein Ql (U) Negative [facility] Absolute lymphocyte countOrd ered By: Tania Gutiérrez on 11-22-2022 Lymphocytes Auto (Unsp spec) [#/Vol] 1.74 10*3/uL 0.83-4.51 [facility] Basophil percentageOrdered B y: Tania Gutiérrez on 11-22-2022 Basophils/100 WBC (Bld) 0.5 % 0-[address] [facility] Eosinophils/100 WBC (Bld) 0.7 % 0-5 [facility] Neutrophils (Bld) [#/Vol] 7.0 10*3/uL 2.0-7.7 [facility] Neutrophils/100 WBC (Bld) 70.7 % 47-70 [facility] WBC (Bld) [#/Vol] 9.9 10*3/uL 4.4-11.0 [facility] Blood erythrocytes count (nu mber/volume)Ordered By: Tania Gutiérrez on 11-22-2022 RBC (Bld) [#/Vol] 3.52 10*6/uL 4.2-5.4 [facility] Blood hemoglobin measurement (mass/volume)Ordered By: Tania Gutiérrez on 11-22-2022 Hemoglobin (Bld) [Mass/Vol] 11.1 g/dL 12.0-15.0 [facility] Blood lymphocytes/100 leukoc ytesOrdered By: Tania Gutiérrez on 11-22-2022 Lymphocytes/100 WBC (Bld) 17.6 % 19-41 [facility] Blood monocytes/100 leukocyt esOrdered By: Tania Gutiérrez on 11-22-2022 Monocytes/100 WBC (Bld) 9.2 % 0-[address] [facility] Blood platelet mean volumeOr dered By: Tania Gutiérrez on 11-22-2022 Platelet mean volume (Bld) [Entitic vol] 9.6 fL 6.2-12.0 [facility] Determination of erythrocyte mean corpuscular volume (MCV)Ordered By: Tania Gutiérrez on 11-22-2022 MCV (RBC) [Entitic vol] 96.0 fL 81-[address] [facility] Hematocrit Auto (Bld) [Volum e fraction]Ordered By: Tania Gutiérrez on 11-22-2022 Hematocrit (Bld) [Volume fraction] 33.8 % 37-47 [facility] - Chemistry and C hemistry - challengeon 11-22-2022 Glucose Ql (U) Negative [facility] - Hematology and Cell countsOrdered By: Tania Gutiérrez on 11-22-2022 Erythrocyte distribution width (RBC) [Entitic vol] 49.7 fL 35.1-43.9 [facility] Erythrocyte distribution width (RBC) [Ratio] 14.2 % 11.6-14.6 [facility] Immature granulocytes/100 WBC (Bld) 1.300 % 0.0-0.9 [facility] Comment on above: IG% - Immature Granu locytes (promyelocytes, myelocytes and metamyelocytes) > 1% indicates that a LEFT SHIFT is Present. MCH (RBC) [Entitic mass] 31.5 pg 27.0-32.0 [facility] Nucleated RBC/100 WBC (Bld) [Ratio] 0 % 0-5 [facility] Laboratory - Urinalysison Protein Ql (U) Negative [facility] MCHC Auto (RBC) [Mass/Vol]Or dered By: Tania Gutiérrez on 11-22-2022 MCHC (RBC) [Mass/Vol] 32.8 g/dL 32-36 [facility] Platelets bldOrdered By: Ameena Gutiérrez on 11-22-2022 Platelets (Bld) [#/Vol] 293 10*3/uL 150-450 [facility] Laboratory - Chemistry and C hemistry - challengeon 11-09-2022 Glucose Ql (U) Negative [facility] - Urinalysison Protein Ql (U) Negative [facility] Quantitative serum or plasma 3 hour gestational glucose tolerance panelOrdered By: Tania Gutiérrez on 10-31-2022 Glucose tolerance 3 hours gestational panel See comment [facility] Comment on above: FASTING 89 Col: 10/19 11/10 0655GLUCOSE TOLERANCE TEST FOR Reference Interval GESTATIONAL DIABETES Fasting <105 mg/dL 1 hour <190 mg/dl 2 hour <165 mg/dl 3 hour <145 mg/dl Absolute lymphocyte countOrd ered By: Dr. Gay on 10-27-2022 Lymphocytes Auto (Unsp spec) [#/Vol] 1.34 10*3/uL 0.83-4.51 [facility] Basophil percentageOrdered B y: Dr. Gay on 10-27-2022 Basophils/100 WBC (Bld) 0.3 % 0-[address] [facility] Eosinophils/100 WBC (Bld) 0.7 % 0-5 [facility] Neutrophils (Bld) [#/Vol] 7.5 10*3/uL 2.0-7.7 [facility] Neutrophils/100 WBC (Bld) 76.1 % 47-70 [facility] WBC (Bld) [#/Vol] 9.9 10*3/uL 4.4-11.0 [facility] Blood erythrocytes count (nu mber/volume)Ordered By: Dr. Gay on 10-27-2022 RBC (Bld) [#/Vol] 3.14 10*6/uL 4.2-5.4 [facility] Blood hemoglobin measurement (mass/volume)Ordered By: Dr. Gay on 10-27-2022 Hemoglobin (Bld) [Mass/Vol] 10.3 g/dL 12.0-15.0 [facility] Blood lymphocytes/100 leukoc ytesOrdered By: Dr. Gay on 10-27-2022 Lymphocytes/100 WBC (Bld) 13.5 % 19-41 [facility] Blood monocytes/100 leukocyt esOrdered By: Dr. Gay on 10-27-2022 Monocytes/100 WBC (Bld) 7.5 % 0-10 [facility] Blood platelet mean volumeOr dered By: Dr. Gay on 10-27-2022 Platelet mean volume (Bld) [Entitic vol] 9.4 fL 6.2-12.0 [facility] Determination of erythrocyte mean corpuscular volume (MCV)Ordered By: Dr. Gay on 10-27-2022 MCV (RBC) [Entitic vol] 94.9 fL 81-[address] [facility] Gestational diabetes screen 1-hour screen with 50g oral glucose loadOrdered By: Dr. Gay on 10-27-2022 Glucose 1 Hr post 50 g glucose PO [Mass/Vol] 149 mg/dL 70-140 [facility] HIV 1 and HIV-2 antibody ass ay with HIV-1 p24 antigen detectionOrdered By: Dr. Gay on 10-27-2022 HIV 1+2 Ab+HIV1 p24 Ag IA Ql Non-Reactive Nonreactive [facility] Hematocrit Auto (Bld) [Volum e fraction]Ordered By: Dr. Gay on 10-27-2022 Hematocrit (Bld) [Volume fraction] 29.8 % 37-47 [facility] Laboratory - Chemistry and C hemistry - challengeon 10-27-2022 Glucose Ql (U) Negative [facility] - Hematology and Cell countsOrdered By: Dr. Gay on 10-27-2022 Erythrocyte distribution width (RBC) [Entitic vol] 44.5 fL 35.1-43.9 [facility] Erythrocyte distribution width (RBC) [Ratio] 13.2 % 11.6-14.6 [facility] Immature granulocytes/100 WBC (Bld) 1.900 % 0.0-0.9 [facility] Comment on above: IG% - Immature Granu locytes (promyelocytes, myelocytes and metamyelocytes) > 1% indicates that a LEFT SHIFT is Present. MCH (RBC) [Entitic mass] 32.8 pg 27.0-32.0 [facility] Nucleated RBC/100 WBC (Bld) [Ratio] 0 % 0-5 [facility] Laboratory - Urinalysison Protein Ql (U) Negative [facility] MCHC Auto (RBC) [Mass/Vol]Or dered By: Dr. Gay on 10-27-2022 MCHC (RBC) [Mass/Vol] 34.6 g/dL 32-36 [facility] Platelets bldOrdered By: Dr. Gay on 10-27-2022 Platelets (Bld) [#/Vol] 321 10*3/uL 150-450 [facility] Serum Treponema species anti body detectionOrdered By: Dr. Gay on 10-27-2022 Treponema sp Ab Ql (S) Non-Reactive [facility] Laboratory - Chemistry and C hemistry - challengeon 10-03-2022 Glucose Ql (U) Negative [facility] Laboratory - Urinalysison Protein Ql (U) Negative [facility] Laboratory - Chemistry and C hemistry - challengeon 09-05-2022 Glucose Ql (U) Negative [facility] Laboratory - Urinalysison Protein Ql (U) Negative [facility] Laboratory - Chemistry and C hemistry - challengeon 08-03-2022 Glucose Ql (U) Negative [facility] Laboratory - Urinalysison Protein Ql (U) Negative [facility] Absolute lymphocyte counton 07-04-2022 Lymphocytes Auto (Unsp spec) [#/Vol] 1.95 10*3/uL 0.83-4.51 [facility] Work Phone: [phone] Basophil percentageon 2021 Basophils/100 WBC (Bld) 0.5 % 0-[address] [facility] Work Phone: [phone] Bilirubin [Mass/Vol] 0.90 mg/dL 0.20-1.00 [facility] Work Phone: [phone] Comment on above: For patients on eltr ombopag therapy, use of Dimension Bond TBIL is not recommended. Eosinophils/100 WBC (Bld) 1.3 % 0-5 [facility] Work Phone: [phone] Neutrophils (Bld) [#/Vol] 7.3 10*3/uL 2.0-7.7 [facility] Work Phone: Neutrophils/100 WBC (Bld) 70.0 % 47-70 [facility] Work Phone: WBC (Bld) [#/Vol] 10.5 10*3/uL 4.4-11.0 [facility] Work Phone: [phone] Blood erythrocytes count (nu mber/volume)on 07-04-2022 RBC (Bld) [#/Vol] 3.77 10*6/uL 4.2-5.4 [facility] Work Phone: Blood hemoglobin measurement (mass/volume)on 07-04-2022 Hemoglobin (Bld) [Mass/Vol] 12.4 g/dL 12.0-15.0 [facility] Work Phone: Blood lymphocytes/100 leukoc yteson 07-04-2022 Lymphocytes/100 WBC (Bld) 18.7 % 19-41 [facility] Work Phone: [phone] Blood monocytes/100 leukocyt eson 07-04-2022 Monocytes/100 WBC (Bld) 9.0 % 0-[address] [facility] Work Phone: Blood platelet mean volumeon 07-04-2022 Platelet mean volume (Bld) [Entitic vol] 9.6 fL 6.2-12.0 [facility] Work Phone: Determination of erythrocyte mean corpuscular volume (MCV)on 07-04-2022 MCV (RBC) [Entitic vol] 92.6 fL 81-[address] [facility] Work Phone: Direct bilirubinon 2 Bilirubin.direct [Mass/Vol] 0.26 mg/dL 0.00-0.30 [facility] Work Phone: HIV 1 and HIV-2 antibody ass ay with HIV-1 p24 antigen detectionon 07-04-2022 HIV 1+2 Ab+HIV1 p24 Ag IA Ql Non-Reactive Nonreactive [facility] Work Phone: Hematocrit Auto (Bld) [Volum e fraction]on 07-04-2022 Hematocrit (Bld) [Volume fraction] 34.9 % 37-47 [facility] Work Phone: Laboratory - Chemistry and C hemistry - challengeon 07-04-2022 Glucose Ql (U) Negative [facility] Work Phone: Laboratory - Hematology and Cell countson 07-04-2022 Erythrocyte distribution width (RBC) [Entitic vol] 43.5 fL 35.1-43.9 [facility] Work Phone: Erythrocyte distribution width (RBC) [Ratio] 13.0 % 11.6-14.6 [facility] Work Phone: Immature granulocytes/100 WBC (Bld) 0.500 % 0.0-0.9 [facility] Work Phone: Comment on above: IG% - Immature Granu locytes (promyelocytes, myelocytes and metamyelocytes) > 1% indicates that a LEFT SHIFT is Present. MCH (RBC) [Entitic mass] 32.9 pg 27.0-32.0 [facility] Work Phone: Nucleated RBC/100 WBC (Bld) [Ratio] 0 % 0-5 [facility] Work Phone: Laboratory - Urinalysison Protein Ql (U) Negative [facility] Work Phone: MCHC Auto (RBC) [Mass/Vol]on 07-04-2022 MCHC (RBC) [Mass/Vol] 35.5 g/dL 32-36 [facility] Work Phone: No Panel Informationon 07-04 Hepatitis B Surface Antigen Non-Reactive Nonreactive [facility] Work Phone: Hepatitis C Antibody Non-Reactive Nonreactive [facility] Work Phone: Comment on above: Non Reactive: < 0.8 Equivocal: >/= 0.8 to < 1.0 Reactive: >/= 1.0The CDC recommends that a reactive/equivocal HCV antibody result be followed up by the HCV Nucleic Acid Amplificationtest (761216) Rubella IgG Antibody Reactive Nonreactive [facility] Work Phone: Comment on above: Antibody Results Int erpretation of Immune Status Non Reactive Presumed Non-Immune Equivocal Equivocal Reactive Presumed Immune Platelets bldon 07-04-2022 Platelets (Bld) [#/Vol] 346 10*3/uL 150-450 [facility] Work Phone: Serum Treponema species anti body detectionon 07-04-2022 Treponema sp Ab Ql (S) Non-Reactive [facility] Work Phone: Cervical or vagninal specime n microscopic examination by cytology stain (reported ason 06-08-2022 Cytology report Cyto stain Doc (Cvx/Vag) Comment . [facility] Work Phone: Comment on above: The Pap smear is a s creening test designed to aid in thedetection of premalignant and malignant conditions of theuterine cervix. It is not a diagnostic procedure andshould not be used as the sole means of detecting cervicalcancer. Both false-positive and false-negative reports dooccur. Chlamydia trachomatis rRNA d etection by probe and target amplification methodon 06-08-2022 C. trachomatis rRNA JOSE J+probe Ql (Unsp spec) Negative Negative [facility] Work Phone: Laboratory - Cytologyon 05-21 Public Health Advisor Cyto stain Nom (Cvx/Vag) [ID] Comment . [facility] Work Phone: Comment on above: Nolan Caputo, Liquid Chlorine Operator (ASCP) Laboratory - Drug toxicology on 06-08-2022 Amphetamines Ql (U) Negative <1000 ng/mL [facility] Work Phone: Benzodiazepines Ql (U) Negative < 200 ng/mL [facility] Work Phone: Cannabinoids Screen Ql (U) Negative < 50 ng/mL [facility] Work Phone: Cocaine Ql (U) Negative < 300 ng/mL [facility] Work Phone: Opiates Ql (U) Negative < 300 ng/mL [facility] Work Phone: Laboratory - Microbiology an d Antimicrobial susceptibilityon 06-08-2022 N. gonorrhoeae DNA JOSE J+probe Ql (Unsp spec) Negative Negative [facility] Work Phone: Comment on above: Performed at: =[address] [place] [id number] Director: Chayo Yi MD, Phone: [phone] Laboratory - Miscellaneous t estson 06-08-2022 Service comment (Unsp spec) [Interp] Comment . [facility] Work Phone: Comment on above: This liquid based Th inPrep(R) pap test was screened withthe use of an image guided system. Service comment (Unsp spec) [Interp] . . [facility] Work Phone: No Panel Informationon 06-08 Human Papillomavirus Screen Comment . [facility] Work Phone: Comment on above: The HPV DNA reflex c riteria were not met with this specimenresult therefore, no HPV testing was performed.Performed at: [address] [id number] Director: Chayo Yi MD, Phone: [phone] MDMA (Ecstasy) Screen Negative < 500 ng/mL [facility] Work Phone: Pathology report final diagnosis Narrative Comment . [facility] Work Phone: Comment on above: NEGATIVE FOR INTRAEP ITHELIAL LESION OR MALIGNANCY. Urine Barbiturates Screen Negative < 200 ng/mL [facility] Work Phone: Urine Drug Screen Comment [facility] Work Phone: Comment on above: CONFIRMATORY TESTING FOR ALL POSITIVE URINE DRUG SCREENRESULTS WILL ONLY BE SENT OUT UPON PHYSICIAN ORDER. VISTA Urine Drug Screen methods provide only preliminaryanalytical test results. A more specific alternate chemicalmethod must be used in order to obtain a confirmedanalytical result. Gas chromatography/mass spectrometery(GC/MS) is the preferred confirmatory method. Clinicalconsideration and professional judgement should be appliedto any drug of abuse test result, particularly whenpreliminary positive results are used. URINE TCA TESTING MUST BE ORDERED SEPARATELY. USE TESTMNEMONIC: [facility] Urine Methadone Screen Negative < 300 ng/mL [facility] Work Phone: Urine phencyclidine (PCP) de tectionon 06-08-2022 Phencyclidine Ql (U) Negative < 25 ng/mL [facility] Work Phone: Laboratory - Microbiology an d Antimicrobial susceptibilityon 03-30-2022 SARS-CoV-2 (COVID-19) RNA JOSE J+probe Ql (Unsp spec) Not detected [facility] Work Phone: No Panel Informationon 03-30 Influenza Types A,B Rapid (Clinic) Not detected [facility] Work Phone: GC/Chlamydia Amp, Uron 07-06 Chlamydia Amplif, Ur Normal [facility] Comment on above: Result Comment: Nega tive for For screening asymptomatic women, a vaginal swab specimen (APTIMA vaginal swab [id number]) is optimal. Urine specimens have reduced sensitivity for Chlamydia trachomatis or Neisseria gonorrhoeae infection in female patients without symptoms. This test was developed and its performance characteristics determined by [facility] [place] ([facility]). It has not been cleared or approved by the FDA. [facility] is regulated under CLIA as qualified to perform high complexity testing. This test is used for clinical purposes. It should not be regarded as investigational or for research. Chlamydia For screening asymptomatic women, a vaginal swab specimen (APTIMA vaginal swab [id number]) is optimal. Urine specimens have reduced sensitivity for Chlamydia trachomatis or Neisseria gonorrhoeae infection in female patients without symptoms. This test was developed and its performance characteristics determined by [facility] [place] ([facility]). It has not been cleared or approved by the FDA. [facility] is regulated under CLIA as qualified to perform high complexity testing. This test is used for clinical purposes. It should not be regarded as investigational or for research. trachomatis by For screening asymptomatic women, a vaginal swab specimen (APTIMA vaginal swab [id number]) is optimal. Urine specimens have reduced sensitivity for Chlamydia trachomatis or Neisseria gonorrhoeae infection in female patients without symptoms. This test was developed and its performance characteristics determined by [facility] [place] ([facility]). It has not been cleared or approved by the FDA. [facility] is regulated under CLIA as qualified to perform high complexity testing. This test is used for clinical purposes. It should not be regarded as investigational or for research. amplification. For screening asymptomatic women, a vaginal swab specimen (APTIMA vaginal swab [id number]) is optimal. Urine specimens have reduced sensitivity for Chlamydia trachomatis or Neisseria gonorrhoeae infection in female patients without symptoms. This test was developed and its performance characteristics determined by [facility] [place] ( PLOK). It has not been cleared or approved by the FDA. [facility] is regulated under CLIA as qualified to perform high complexity testing. This test is used for clinical purposes. It should not be regarded as investigational or for research. Performed By: #### U GCCT #### [facility] Routine Lab [address], [place] [id number] GC Amplification, Ur NGNEG Normal [facility] Reference [facility] Comment on above: Performed By: #### U GCCT #### [facility] Routine Lab [address], [place] [address] Culture, urine Bacteria identified Cx Nom (U) Culture exhibits no growth. [facility] Work Phone: Vital Signs Date Time Vital Sign Value Performing Clinician Faci lity 03-19-2025 12:54-0400 Body height 170.18 cm Yudi Méndez PLANT PHYSIOLOGIST-C Work Phone: [facility] 03-19-2025 12:49-0400 Body mass index (BMI) [Ratio] 28.6 kg/m2 Yudi Méndez PLANT PHYSIOLOGIST-C Work Phone: [facility] 03-19-2025 12:49-0400 Body weight 83 kg Yuid Méndez PLANT PHYSIOLOGIST-C Work Phone: [facility] 03-19-2025 12:49-0400 Diastolic blood pressure 67 mm[Hg] Yudi Méndez PLANT PHYSIOLOGIST-C Work Phone: [facility] 03-19-2025 12:49-0400 Systolic blood pressure 104 mm[Hg] Yudi Méndez PLANT PHYSIOLOGIST-C Work Phone: [facility] 03-07-2025 16:14-0400 Body height 170.18 cm Yudi Méndez PLANT PHYSIOLOGIST-C Work Phone: [facility] 03-07-2025 16:11-0400 Body mass index (BMI) [Ratio] 28.5 kg/m2 Yudi Méndez PLANT PHYSIOLOGIST-C Work Phone: [facility] 03-07-2025 16:11-0400 Body weight 82.61 kg Yudi Aris PLANT PHYSIOLOGIST-C Work Phone: [facility] 03-07-2025 16:11-0400 Diastolic blood pressure 73 mm[Hg] Ydui Aris PLANT PHYSIOLOGIST-C Work Phone: [facility] 03-07-2025 16:11-0400 Systolic blood pressure 115 mm[Hg] Yudi Aris PLANT PHYSIOLOGIST-C Work Phone: [facility] 02-19-2025 11:35-0400 Body height 170.18 cm Yudi Méndez PLANT PHYSIOLOGIST-C Work Phone: [facility] 02-19-2025 11:31-0400 Body mass index (BMI) [Ratio] 27.8 kg/m2 Yudi Aris PLANT PHYSIOLOGIST-C Work Phone: [facility] 02-19-2025 11:31-0400 Body weight 80.73 kg Yudi Aris PLANT PHYSIOLOGIST-C Work Phone: [facility] 02-19-2025 11:31-0400 Diastolic blood pressure 71 mm[Hg] Yudi Aris PLANT PHYSIOLOGIST-C Work Phone: [facility] 02-19-2025 11:31-0400 Systolic blood pressure 111 mm[Hg] Yudi Méndez PLANT PHYSIOLOGIST-C Work Phone: [facility] 01-29-2025 15:15-0400 Body height 170.18 cm Yudi Méndez PLANT PHYSIOLOGIST-C Work Phone: [facility] 01-29-2025 15:12-0400 Body mass index (BMI) [Ratio] 27.2 kg/m2 Yudi Méndez PLANT PHYSIOLOGIST-C Work Phone: [facility] 01-29-2025 15:12-0400 Body weight 78.92 kg Yudi Méndez PLANT PHYSIOLOGIST-C Work Phone: [facility] 01-29-2025 15:12-0400 Diastolic blood pressure 69 mm[Hg] Yudi Méndez PLANT PHYSIOLOGIST-C Work Phone: [facility] 01-29-2025 15:12-0400 Systolic blood pressure 118 mm[Hg] Yudi Aris PLANT PHYSIOLOGIST-C Work Phone: [facility] 01-01-2025 11:30-0400 Body height 170.18 cm Yudi Aris PLANT PHYSIOLOGIST-C Work Phone: [phone] [place] [address] 01-01-2025 11:25-0400 Body mass index (BMI) [Ratio] 26.2 kg/m2 Yudi Méndez PLANT PHYSIOLOGIST-C Work Phone: [facility] 01-01-2025 11:25-0400 Body weight 75.97 kg Yudi Aris PLANT PHYSIOLOGIST-C Work Phone: [facility] 01-01-2025 11:25-0400 Diastolic blood pressure 71 mm[Hg] Yudi Aris PLANT PHYSIOLOGIST-C Work Phone: [facility] 01-01-2025 11:25-0400 Systolic blood pressure 113 mm[Hg] Yudi Aris PLANT PHYSIOLOGIST-C Work Phone: [facility] 11-27-2024 12:29-0400 Body mass index (BMI) [Ratio] 24.7 kg/m2 Yudi Méndez PLANT PHYSIOLOGIST-C Work Phone: [phone] [place] [address] 11-27-2024 12:29-0400 Body weight 71.72 kg Yudi Aris PLANT PHYSIOLOGIST-C Work Phone: [facility] 11-27-2024 12:29-0400 Diastolic blood pressure 67 mm[Hg] Yudi Aris PLANT PHYSIOLOGIST-C Work Phone: [facility] 11-27-2024 12:29-0400 Systolic blood pressure 101 mm[Hg] Yudi Aris PLANT PHYSIOLOGIST-C Work Phone: [facility] 11-26-2024 14:17-0400 Body mass index (BMI) [Ratio] 25 kg/m2 Yudi Méndez PLANT PHYSIOLOGIST-C Work Phone: [facility] 11-26-2024 14:17-0400 Body temperature 97.2 [degF] Yudi Méndez PLANT PHYSIOLOGIST-C Work Phone: [facility] 11-26-2024 14:17-0400 Body weight 72.68 kg Yudi Méndez PLANT PHYSIOLOGIST-C Work Phone: [facility] 11-26-2024 14:17-0400 Diastolic blood pressure 79 mm[Hg] Yudi Méndez PLANT PHYSIOLOGIST-C Work Phone: [facility] 11-26-2024 14:17-0400 Heart rate 63 /min Yudi Méndez PLANT PHYSIOLOGIST-C Work Phone: [facility] 11-26-2024 14:17-0400 Respiratory rate 18 /min Yudi Méndez PLANT PHYSIOLOGIST-C Work Phone: [facility] 11-26-2024 14:17-0400 SaO2% (BldA) [Mass fraction] 100 % Yudi Méndez PLANT PHYSIOLOGIST-C Work Phone: [facility] 11-26-2024 14:17-0400 Systolic blood pressure 113 mm[Hg] Yudi Méndez PLANT PHYSIOLOGIST-C Work Phone: [facility] 11-01-2024 14:26-0400 Body mass index (BMI) [Ratio] 23.6 kg/m2 Yudi Méndez PLANT PHYSIOLOGIST-C Work Phone: [facility] 11-01-2024 14:26-0400 Body weight 68.26 kg Yudi Méndez PLANT PHYSIOLOGIST-C Work Phone: [facility] 11-01-2024 14:26-0400 Diastolic blood pressure 75 mm[Hg] Yudi Méndez PLANT PHYSIOLOGIST-C Work Phone: [facility] 11-01-2024 14:26-0400 Systolic blood pressure 114 mm[Hg] Yudi Méndez PLANT PHYSIOLOGIST-C Work Phone: [facility] 10-04-2024 14:30-0500 Body mass index (BMI) [Ratio] 23.8 kg/m2 Yudi Méndez PLANT PHYSIOLOGIST-C Work Phone: [facility] 10-04-2024 14:30-0500 Body weight 69.11 kg Yudi Méndez PLANT PHYSIOLOGIST-C Work Phone: [facility] 10-04-2024 14:30-0500 Diastolic blood pressure 82 mm[Hg] Yudi Méndez PLANT PHYSIOLOGIST-C Work Phone: [facility] 10-04-2024 14:30-0500 Systolic blood pressure 124 mm[Hg] Yudi Méndez PLANT PHYSIOLOGIST-C Work Phone: [facility] 03-06-2023 11:36-0400 Body height 170.18 cm PLANT PHYSIOLOGIST-C Yudi Méndez PLANT PHYSIOLOGIST Work Phone: [facility] 03-06-2023 11:35-0400 Body mass index (BMI) [Ratio] 24.3 kg/m2 PLANT PHYSIOLOGIST-C Yudi Méndez PLANT PHYSIOLOGIST Work Phone: [facility] 03-06-2023 11:35-0400 Body weight 70.53 kg PLANT PHYSIOLOGIST-C Yudi Méndez PLANT PHYSIOLOGIST Work Phone: [facility] 03-06-2023 11:35-0400 Diastolic blood pressure 79 mm[Hg] PLANT PHYSIOLOGIST-C Yudi Méndez PLANT PHYSIOLOGIST Work Phone: [facility] 03-06-2023 11:35-0400 Systolic blood pressure 119 mm[Hg] PLANT PHYSIOLOGIST-C Yudi Méndez PLANT PHYSIOLOGIST Work Phone: [facility] 01-25-2023 08:54-0400 Body temperature 98.7 [degF] PLANT PHYSIOLOGIST-C Yudi Méndez PLANT PHYSIOLOGIST Work Phone: [facility] 01-25-2023 08:54-0400 Diastolic blood pressure 78 mm[Hg] PLANT PHYSIOLOGIST-C Yudi Méndez PLANT PHYSIOLOGIST Work Phone: [facility] 01-25-2023 08:54-0400 Heart rate 67 /min PLANT PHYSIOLOGIST-C Yudi Méndez PLANT PHYSIOLOGIST Work Phone: [facility] 01-25-2023 08:54-0400 Respiratory rate 18 /min PLANT PHYSIOLOGIST-C Yudi Méndez PLANT PHYSIOLOGIST Work Phone: [facility] 01-25-2023 08:54-0400 SaO2% (BldA) [Mass fraction] 96 % PLANT PHYSIOLOGIST-C Yudi Méndez PLANT PHYSIOLOGIST Work Phone: [facility] 01-25-2023 08:54-0400 Systolic blood pressure 123 mm[Hg] PLANT PHYSIOLOGIST-C Yudi Méndez PLANT PHYSIOLOGIST Work Phone: [facility] 01-23-2023 07:34-0400 Body height 170.18 cm PLANT PHYSIOLOGIST-C Yudi Méndez PLANT PHYSIOLOGIST Work Phone: [facility] 01-23-2023 07:34-0400 Body mass index (BMI) [Ratio] 29.4 kg/m2 PLANT PHYSIOLOGIST-C Yudi Méndez PLANT PHYSIOLOGIST Work Phone: [facility] 01-23-2023 07:34-0400 Body weight 85.27 kg PLANT PHYSIOLOGIST-C Yudi Méndez PLANT PHYSIOLOGIST Work Phone: [facility] 01-18-2023 09:11-0400 Body mass index (BMI) [Ratio] 29.7 kg/m2 PLANT PHYSIOLOGIST-C Yudi Méndez PLANT PHYSIOLOGIST Work Phone: [facility] 01-18-2023 09:11-0400 Body weight 86.29 kg PLANT PHYSIOLOGIST-C Yudi Méndez PLANT PHYSIOLOGIST Work Phone: [facility] 01-18-2023 09:11-0400 Diastolic blood pressure 82 mm[Hg] PLANT PHYSIOLOGIST-C Yudi Méndez PLANT PHYSIOLOGIST Work Phone: [facility] 01-18-2023 09:11-0400 Systolic blood pressure 123 mm[Hg] PLANT PHYSIOLOGIST-C Yudi Méndez PLANT PHYSIOLOGIST Work Phone: [facility] 01-09-2023 08:35-0400 Body mass index (BMI) [Ratio] 30.4 kg/m2 PLANT PHYSIOLOGIST-C Yudi Méndez PLANT PHYSIOLOGIST Work Phone: [facility] 01-09-2023 08:35-0400 Body weight 88.11 kg PLANT PHYSIOLOGIST-C Yudi Aris PLANT PHYSIOLOGIST Work Phone: [facility] 01-09-2023 08:35-0400 Diastolic blood pressure 83 mm[Hg] PLANT PHYSIOLOGIST-C Yudi Aris PLANT PHYSIOLOGIST Work Phone: [facility] 01-09-2023 08:35-0400 Systolic blood pressure 123 mm[Hg] PLANT PHYSIOLOGIST-C Yudi Aris PLANT PHYSIOLOGIST Work Phone: [facility] 01-03-2023 09:18-0400 Body mass index (BMI) [Ratio] 29.9 kg/m2 PLANT PHYSIOLOGIST-C Yudi Aris PLANT PHYSIOLOGIST Work Phone: [facility] 01-03-2023 09:18-0400 Body weight 86.8 kg PLANT PHYSIOLOGIST-C Yudi Aris PLANT PHYSIOLOGIST Work Phone: [facility] 01-03-2023 09:18-0400 Diastolic blood pressure 83 mm[Hg] PLANT PHYSIOLOGIST-C Yudi Aris PLANT PHYSIOLOGIST Work Phone: [facility] 01-03-2023 09:18-0400 Systolic blood pressure 131 mm[Hg] PLANT PHYSIOLOGIST-C Yudi Aris PLANT PHYSIOLOGIST Work Phone: [facility] 12-28-2022 14:34-0400 Body mass index (BMI) [Ratio] 29.7 kg/m2 PLANT PHYSIOLOGIST-C Yudi Aris PLANT PHYSIOLOGIST Work Phone: [facility] 12-28-2022 14:34-0400 Body weight 86.18 kg PLANT PHYSIOLOGIST-C Yudi Aris PLANT PHYSIOLOGIST Work Phone: [facility] 12-28-2022 14:34-0400 Diastolic blood pressure 82 mm[Hg] PLANT PHYSIOLOGIST-C Yudi Aris PLANT PHYSIOLOGIST Work Phone: [facility] 12-28-2022 14:34-0400 Systolic blood pressure 126 mm[Hg] PLANT PHYSIOLOGIST-C Yudi Aris PLANT PHYSIOLOGIST Work Phone: [facility] 12-20-2022 13:39-0400 Body height 170.18 cm PLANT PHYSIOLOGIST-C Yudi Aris PLANT PHYSIOLOGIST Work Phone: [facility] 12-20-2022 13:39-0400 Body mass index (BMI) [Ratio] 30.2 kg/m2 PLANT PHYSIOLOGIST-C Yudi Aris PLANT PHYSIOLOGIST Work Phone: [facility] 12-20-2022 13:39-0400 Body weight 87.6 kg PLANT PHYSIOLOGIST-C Yudi Méndez PLANT PHYSIOLOGIST Work Phone: [facility] 12-20-2022 13:39-0400 Diastolic blood pressure 80 mm[Hg] PLANT PHYSIOLOGIST-C Yudi Aris PLANT PHYSIOLOGIST Work Phone: [facility] 12-20-2022 13:39-0400 Systolic blood pressure 120 mm[Hg] PLANT PHYSIOLOGIST-C Yudi Aris PLANT PHYSIOLOGIST Work Phone: [facility] 12-07-2022 16:13-0400 Body mass index (BMI) [Ratio] 29 kg/m2 PLANT PHYSIOLOGIST-C Yudi Aris PLANT PHYSIOLOGIST Work Phone: [facility] 12-07-2022 16:13-0400 Body weight 84.14 kg PLANT PHYSIOLOGIST-C Yudi Aris PLANT PHYSIOLOGIST Work Phone: [facility] 12-07-2022 16:13-0400 Diastolic blood pressure 78 mm[Hg] PLANT PHYSIOLOGIST-C Yudi Aris PLANT PHYSIOLOGIST Work Phone: [facility] 12-07-2022 16:13-0400 Systolic blood pressure 121 mm[Hg] PLANT PHYSIOLOGIST-C Yudi Méndez PLANT PHYSIOLOGIST Work Phone: [facility] 11-22-2022 15:13-0400 Body height 170.18 cm PLANT PHYSIOLOGIST-C Yudi Méndez PLANT PHYSIOLOGIST Work Phone: [facility] 11-22-2022 15:11-0400 Body mass index (BMI) [Ratio] 27.9 kg/m2 PLANT PHYSIOLOGIST-C Yudi Aris PLANT PHYSIOLOGIST Work Phone: [facility] 11-22-2022 15:11-0400 Body weight 80.85 kg PLANT PHYSIOLOGIST-C Yudijohn Méndez PLANT PHYSIOLOGIST Work Phone: [facility] 11-22-2022 15:11-0400 Diastolic blood pressure 77 mm[Hg] PLANT PHYSIOLOGIST-C Yudi Méndez PLANT PHYSIOLOGIST Work Phone: [facility] 11-22-2022 15:11-0400 Systolic blood pressure 121 mm[Hg] PLANT PHYSIOLOGIST-C Yudi Méndez PLANT PHYSIOLOGIST Work Phone: [facility] 11-09-2022 14:42-0400 Body mass index (BMI) [Ratio] 27.7 kg/m2 PLANT PHYSIOLOGIST-C Yudi Méndez PLANT PHYSIOLOGIST Work Phone: [facility] 11-09-2022 14:42-0400 Body weight 80.39 kg PLANT PHYSIOLOGIST-C Yudi Méndez PLANT PHYSIOLOGIST Work Phone: [facility] 11-09-2022 14:42-0400 Diastolic blood pressure 77 mm[Hg] PLANT PHYSIOLOGIST-C Yudi Méndez PLANT PHYSIOLOGIST Work Phone: [facility] 11-09-2022 14:42-0400 Systolic blood pressure 117 mm[Hg] PLANT PHYSIOLOGIST-C Yudi Méndez PLANT PHYSIOLOGIST Work Phone: [facility] 10-27-2022 09:07-0500 Body height 170.18 cm PLANT PHYSIOLOGIST-C Yudi Méndez PLANT PHYSIOLOGIST Work Phone: [facility] 10-27-2022 09:00-0500 Body mass index (BMI) [Ratio] 27.1 kg/m2 PLANT PHYSIOLOGIST-C Yudi Méndez PLANT PHYSIOLOGIST Work Phone: [facility] 10-27-2022 09:00-0500 Body weight 78.58 kg PLANT PHYSIOLOGIST-C Yudi Méndez PLANT PHYSIOLOGIST Work Phone: [facility] 10-27-2022 09:00-0500 Diastolic blood pressure 70 mm[Hg] PLANT PHYSIOLOGIST-C Yudi Méndez PLANT PHYSIOLOGIST Work Phone: [facility] 10-27-2022 09:00-0500 Systolic blood pressure 102 mm[Hg] PLANT PHYSIOLOGIST-C Yudi Méndez PLANT PHYSIOLOGIST Work Phone: [facility] 10-03-2022 14:06-0500 Body mass index (BMI) [Ratio] 26.9 kg/m2 PLANT PHYSIOLOGIST-C Yudi Méndez PLANT PHYSIOLOGIST Work Phone: [facility] 10-03-2022 14:06-0500 Body weight 78.18 kg PLANT PHYSIOLOGIST-C Yudi Méndez PLANT PHYSIOLOGIST Work Phone: [facility] 10-03-2022 14:06-0500 Diastolic blood pressure 80 mm[Hg] PLANT PHYSIOLOGIST-C Yudi Méndez PLANT PHYSIOLOGIST Work Phone: [facility] 10-03-2022 14:06-0500 Systolic blood pressure 124 mm[Hg] PLANT PHYSIOLOGIST-C Yudi Méndez PLANT PHYSIOLOGIST Work Phone: [facility] 09-05-2022 09:54-0500 Body mass index (BMI) [Ratio] 25.6 kg/m2 PLANT PHYSIOLOGIST-C Yudi Méndez PLANT PHYSIOLOGIST Work Phone: [facility] 09-05-2022 09:54-0500 Body weight 74.16 kg PLANT PHYSIOLOGIST-C Yudi Méndez PLANT PHYSIOLOGIST Work Phone: [facility] 09-05-2022 09:54-0500 Diastolic blood pressure 68 mm[Hg] PLANT PHYSIOLOGIST-C Yudi Méndez PLANT PHYSIOLOGIST Work Phone: [facility] 09-05-2022 09:54-0500 Systolic blood pressure 110 mm[Hg] PLANT PHYSIOLOGIST-C Yudi Méndez PLANT PHYSIOLOGIST Work Phone: [facility] 08-03-2022 14:36-0500 Body mass index (BMI) [Ratio] 25.2 kg/m2 PLANT PHYSIOLOGIST-C Yudi Méndez PLANT PHYSIOLOGIST Work Phone: [facility] 08-03-2022 14:36-0500 Body weight 73.02 kg PLANT PHYSIOLOGIST-C Yudi Méndez PLANT PHYSIOLOGIST Work Phone: [facility] 08-03-2022 14:36-0500 Diastolic blood pressure 74 mm[Hg] PLANT PHYSIOLOGIST-C Yudi Méndez PLANT PHYSIOLOGIST Work Phone: [facility] 08-03-2022 14:36-0500 Systolic blood pressure 116 mm[Hg] PLANT PHYSIOLOGIST-C Yudi Méndez PLANT PHYSIOLOGIST Work Phone: [facility] 07-04-2022 14:12-0500 Body height 170.18 cm PLANT PHYSIOLOGIST-C Yudi Méndez PLANT PHYSIOLOGIST Work Phone: [facility] Work Phone: 07-04-2022 14:11-0500 Body mass index (BMI) [Ratio] 25 kg/m2 PLANT PHYSIOLOGIST-C Yudi Méndez PLANT PHYSIOLOGIST Work Phone: [facility] Work Phone: 07-04-2022 14:11-0500 Body weight 72.29 kg PLANT PHYSIOLOGIST-C Yudi Méndez PLANT PHYSIOLOGIST Work Phone: [facility] Work Phone: 07-04-2022 14:11-0500 Diastolic blood pressure 72 mm[Hg] PLANT PHYSIOLOGIST-C Yudi Méndez PLANT PHYSIOLOGIST Work Phone: [facility] Work Phone: 07-04-2022 14:11-0500 Systolic blood pressure 114 mm[Hg] PLANT PHYSIOLOGIST-C Yudi Méndez PLANT PHYSIOLOGIST Work Phone: [facility] Work Phone: 06-08-2022 09:45-0400 Body height 170.18 cm PLANT PHYSIOLOGIST-C Yudi Méndez PLANT PHYSIOLOGIST Work Phone: [facility] Work Phone: 06-08-2022 09:45-0400 Body mass index (BMI) [Ratio] 23.6 kg/m2 PLANT PHYSIOLOGIST-C Yudi Méndez PLANT PHYSIOLOGIST Work Phone: [facility] Work Phone: 06-08-2022 09:45-0400 Body weight 68.49 kg PLANT PHYSIOLOGIST-C Yudi Méndez PLANT PHYSIOLOGIST Work Phone: [facility] Work Phone: 06-08-2022 09:45-0400 Diastolic blood pressure 79 mm[Hg] PLANT PHYSIOLOGIST-C Yudi Méndez PLANT PHYSIOLOGIST Work Phone: [facility] Work Phone: 06-08-2022 09:45-0400 Systolic blood pressure 123 mm[Hg] PLANT PHYSIOLOGIST-C Yudi Méndez PLANT PHYSIOLOGIST Work Phone: [facility] Work Phone: 03-30-2022 15:45-0400 Body mass index (BMI) [Ratio] 23.5 kg/m2 PLANT PHYSIOLOGIST-C Yudi Méndez PLANT PHYSIOLOGIST Work Phone: [facility] Work Phone: 03-30-2022 15:45-0400 Body temperature 98.4 [degF] PLANT PHYSIOLOGIST-C Yudi Méndez PLANT PHYSIOLOGIST Work Phone: [facility] Work Phone: 03-30-2022 15:45-0400 Body weight 68.03 kg PLANT PHYSIOLOGIST-C Yudi Méndez PLANT PHYSIOLOGIST Work Phone: [facility] Work Phone: 03-30-2022 15:45-0400 Diastolic blood pressure 66 mm[Hg] PLANT PHYSIOLOGIST-C Yudi Méndez PLANT PHYSIOLOGIST Work Phone: [facility] Work Phone: 03-30-2022 15:45-0400 Heart rate 82 /min PLANT PHYSIOLOGIST-C Yudi Méndez PLANT PHYSIOLOGIST Work Phone: [facility] Work Phone: 03-30-2022 15:45-0400 Respiratory rate 16 /min PLANT PHYSIOLOGIST-C Yudi Méndez PLANT PHYSIOLOGIST Work Phone: [facility] Work Phone: 03-30-2022 15:45-0400 SaO2% (BldA) [Mass fraction] 99 % PLANT PHYSIOLOGIST-C Yudi Méndez PLANT PHYSIOLOGIST Work Phone: [facility] Work Phone: 03-30-2022 15:45-0400 Systolic blood pressure 108 mm[Hg] PLANT PHYSIOLOGIST-C Yudi Méndez PLANT PHYSIOLOGIST Work Phone: [facility] Work Phone: Encounters Encounter Date Encounter Type Care Provider Facility Start: 03-19-2025 End: 03-19-2025 Patient encounter procedure Manjula Goldman CNM -[facility] Start: 03-19-2025 End: 03-19-2025 ambulatory Yudi Méndez PLANT PHYSIOLOGIST-C Work Phone: -[facility] Start: 03-07-2025 End: 03-07-[address] Nelly Gay MD -[facility] Work Phone: Start: 03-07-2025 End: 03-07-2025 ambulatory Yudi Méndez PLANT PHYSIOLOGIST-C Work Phone: -[facility] Start: 02-19-2025 End: 02-19-2025 Patient encounter procedure Manjula Goldman CNM -[facility] Start: 02-19-2025 End: 02-19-2025 ambulatory Yudi Méndez PLANT PHYSIOLOGIST-C Work Phone: -[facility] Start: 01-29-2025 End: 01-29-[address] Carline Escobar DO -[facility] Work Phone: Start: 01-29-2025 End: 01-29-2025 ambulatory Yudi Méndez PLANT PHYSIOLOGIST-C Work Phone: [facility] Work Phone: Start: 01-29-2025 End: 01-29-2025 ambulatory Yudi Méndez PLANT PHYSIOLOGIST Facility:[facility] Start: 01-01-2025 End: 01-01-2025 Patient encounter procedure Manjula Goldman CNM -[facility] Start: 01-01-2025 End: 01-01-2025 ambulatory Yudi Méndez PLANT PHYSIOLOGIST-C Work Phone: [facility] Work Phone: Start: 12-17-2024 End: 12-17-2024 ambulatory YUDI MÉNDEZ [facility] Start: 11-27-2024 End: 11-27-2024 Patient encounter procedure Manjula SCHNEIDER -[facility] Start: 11-27-2024 End: 11-27-2024 ambulatory Manjula Goldman Facility:[facility] Start: 11-26-2024 End: 11-26-[address] Ravinder Suazo MD -Laboratory, Specimen Work Phone: Start: 11-26-2024 End: 11-26-[address] Ravinder Suazo MD -[facility] Work Phone: Start: 11-26-2024 End: 11-26-2024 ambulatory Yudi Méndez PLANT PHYSIOLOGIST [place] [place]: 11-26-2024 End: 11-26-2024 ambulatory Yudi Méndez PLANT PHYSIOLOGIST Facility:[facility] Start: 11-01-2024 End: 11-01-[address] Carline Escobar DO -[facility] Work Phone: Start: 11-01-2024 End: 11-01-2024 ambulatory Yudi Méndez PLANT PHYSIOLOGIST [place] Start: 10-11-2024 End: 10-11-2024 ambulatory YUDI MÉNDEZ [facility] Start: 10-04-2024 End: 10-04-2024 Patient encounter procedure Manjula Goldman [facility] Work Phone: Start: 10-04-2024 End: 10-04-2024 ambulatory Manjula Goldman [place] Start: 10-04-2024 End: 10-04-2024 ambulatory Manjula Goldman Facility:[facility] Start: 06-29-2023 End: 06-29-2023 ambulatory PLANT PHYSIOLOGIST-C Yudi Méndez PLANT PHYSIOLOGIST Work Phone: [facility] Work Phone: Start: 06-29-2023 End: 06-29-2023 Patient encounter procedure PLANT PHYSIOLOGIST-C Yudi Méndez PLANT PHYSIOLOGIST Work Phone: [facility] [place] Work Phone: Start: 03-06-2023 End: 03-06-2023 Patient encounter procedure PLANT PHYSIOLOGIST-C Yudi Méndez PLANT PHYSIOLOGIST Work Phone: [facility] Work Phone: Start: 01-25-2023 Non-patient / Non-visit PLANT PHYSIOLOGIST-C Yudi Méndez PLANT PHYSIOLOGIST Work Phone: [facility] Start: 01-24-2023 Non-patient / Non-visit PLANT PHYSIOLOGIST-C Yudi Méndez PLANT PHYSIOLOGIST Work Phone: [facility] Start: 01-23-2023 Non-patient / Non-visit PLANT PHYSIOLOGIST-C Yudi Méndez PLANT PHYSIOLOGIST Work Phone: [facility] Start: 01-23-2023 End: 01-25-2023 Evaluation and management of inpatient PLANT PHYSIOLOGIST-C Yudi Méndez PLANT PHYSIOLOGIST Work Phone: [facility] Start: 01-18-2023 End: 01-18-2023 Patient encounter procedure PLANT PHYSIOLOGIST-C Yudi Méndez PLANT PHYSIOLOGIST Work Phone: [facility] Start: 01-09-2023 End: 01-09-2023 Patient encounter procedure PLANT PHYSIOLOGIST-C Yudi Méndez PLANT PHYSIOLOGIST Work Phone: [facility] Start: 01-03-2023 End: 01-03-2023 Patient encounter procedure PLANT PHYSIOLOGIST-C Yudi Méndez PLANT PHYSIOLOGIST Work Phone: [facility] Start: 12-28-2022 End: 12-28-2022 Patient encounter procedure PLANT PHYSIOLOGIST-C Yudi Méndez PLANT PHYSIOLOGIST Work Phone: [facility] Start: 12-20-2022 End: 12-20-2022 ambulatory PLANT PHYSIOLOGIST-C Yudi Méndez PLANT PHYSIOLOGIST Work Phone: [facility] Work Phone: Start: 12-20-2022 End: 12-20-2022 Patient encounter procedure PLANT PHYSIOLOGIST-C Yudi Méndez PLANT PHYSIOLOGIST Work Phone: [facility] Start: 12-07-2022 End: 12-07-2022 Patient encounter procedure PLANT PHYSIOLOGIST-C Yudi Méndez PLANT PHYSIOLOGIST Work Phone: [facility] Start: 11-22-2022 End: 11-22-2022 ambulatory PLANT PHYSIOLOGIST-C Yudi Méndez PLANT PHYSIOLOGIST Work Phone: [facility] Work Phone: Start: 11-22-2022 End: 11-22-2022 Patient encounter procedure PLANT PHYSIOLOGIST-C Yudi Méndez PLANT PHYSIOLOGIST Work Phone: [facility] Start: 11-09-2022 End: 11-09-2022 Patient encounter procedure PLANT PHYSIOLOGIST-C Yudi Méndez PLANT PHYSIOLOGIST Work Phone: [facility] Start: 10-31-2022 End: 10-31-2022 ambulatory PLANT PHYSIOLOGIST-C Yudi Méndez PLANT PHYSIOLOGIST Work Phone: [facility] Work Phone: Start: 10-31-2022 End: 10-31-2022 Patient encounter procedure PLANT PHYSIOLOGIST-C Yudi Méndez PLANT PHYSIOLOGIST Work Phone: [facility] Start: 10-27-2022 End: 10-27-2022 ambulatory PLANT PHYSIOLOGIST-C Yudi Méndez PLANT PHYSIOLOGIST Work Phone: [facility] Work Phone: Start: 10-27-2022 End: 10-27-2022 Patient encounter procedure PLANT PHYSIOLOGIST-C Yudi Méndez PLANT PHYSIOLOGIST [facility] Phone[facility] [facility] Start: 10-03-2022 End: 10-03-2022 Patient encounter procedure PLANT PHYSIOLOGIST-C Yudi Méndez PLANT PHYSIOLOGIST Work Phone: [facility] Start: 09-05-2022 End: 09-05-2022 Patient encounter procedure PLANT PHYSIOLOGIST-C Yudi Méndez PLANT PHYSIOLOGIST Work Phone: [facility] Start: 08-03-2022 End: 08-03-2022 Patient encounter procedure PLANT PHYSIOLOGIST-C Yudi Aris PLANT PHYSIOLOGIST Work Phone: [facility] Start: 07-04-2022 End: 07-04-2022 ambulatory PLANT PHYSIOLOGIST-C Yudi Méndez PLANT PHYSIOLOGIST Work Phone: [facility] Work Phone: Start: 07-04-2022 End: 07-04-2022 Patient encounter procedure PLANT PHYSIOLOGIST-C Yudi Aris PLANT PHYSIOLOGIST Work Phone: [facility] Start: 06-08-2022 End: 06-08-2022 ambulatory PLANT PHYSIOLOGIST-C Yudi Aris PLANT PHYSIOLOGIST Work Phone: [facility] Work Phone: Start: 06-08-2022 End: 06-08-2022 Patient encounter procedure PLANT PHYSIOLOGIST-C Yudi Aris PLANT PHYSIOLOGIST Work Phone: [facility] Specimen Start: 06-08-2022 End: 06-08-2022 Patient encounter procedure PLANT PHYSIOLOGIST-C Yudi Aris PLANT PHYSIOLOGIST Work Phone: [facility] Start: 03-30-2022 End: 03-30-2022 Patient encounter procedure PLANT PHYSIOLOGIST-C Yudi Méndez PLANT PHYSIOLOGIST [facility] Procedures Date Procedure Procedure Detail Performing Clinician Start: 01-29-2025 Lead measurement Yudi Méndez PLANT PHYSIOLOGIST-C Work Phone: Comment on above: Testing performed by Inductively coupled plasma/MassSpectrometry.Analysis by inductively coupled plasma/massspectrometry (ICP/MS) Environmental Exposure: WHO Recommendation <5.0 Occupational Exposure: OSHA Lead Std 40.0 JAMAR 30.0 Detection Limit = 1.0Performed at: [address] [id number] Director: Guzman Darnell PhD, Phone: [phone] Start: 01-29-2025 Serologic test for syphilis Yudi Méndez PLANT PHYSIOLOGIST-C Work Phone: Start: 10-04-2024 Liquid based cervica l cytology screening Yudi Méndez PLANT PHYSIOLOGIST-C Work Phone: Comment on above: NEGATIVE FOR INTRAEP ITHELIAL LESION OR MALIGNANCY. This liquid based Th inPrep(R) pap test was screened withthe use of an image guided system. The HPV DNA reflex c riteria were not met with this specimenresult therefore, no HPV testing was performed.Performed at: [address] [id number] Director: Chayo Yi MD, Phone: [phone] Start: 10-04-2024 Hepatitis B surface antigen measurement Yudi Méndez PLANT PHYSIOLOGIST-C Work Phone: Start: 10-04-2024 Hepatitis C antibody measurement Yudi Méndez PLANT PHYSIOLOGIST-C Work Phone: Comment on above: Non Reactive: < 0.8 Equivocal: >/= 0.8 to < 1.0 Reactive: >/= 1.0The CDC requires that a reactive/equivocal HCV antibody result be sent out for confirmation. HCV Quant by PCR testing. Start: 10-04-2024 Rubella IgG measurement Yudi Méndez PLANT PHYSIOLOGIST-C Work Phone: Comment on above: Antibody Results Int erpretation of Immune Status Non Reactive Presumed Non-Immune Equivocal Equivocal Reactive Presumed Immune Start: 10-04-2024 Urine culture Yudi Robert is PLANT PHYSIOLOGIST-C Work Phone: Start: 12-20-2022 Ultrasound scan for growth PLANT PHYSIOLOGIST-C Yudi Méndez PLANT PHYSIOLOGIST Work Phone: Group B Streptococcu s Culture PLANT PHYSIOLOGIST-C Yudi Méndez PLANT PHYSIOLOGIST Work Phone: Urine culture PLANT PHYSIOLOGIST-C Yudi Robert is PLANT PHYSIOLOGIST Work Phone: Plan of Treatment Date Care Activity Detail Author Start: 01-29-2025 CBC W Auto Different ial panel - Blood [facility] Start: 01-29-2025 Measurement of gluco se 2 hours after glucose challenge for glucose tolerance test [facility] Start: 01-29-2025 Serologic test for syphilis [facility] Start: 01-29-2025 T4 free measurement [facility] Start: 01-29-2025 Thyroid stimulating hormone measurement [facility] Start: 01-29-2025 [facility] Start: 01-25-2023 Patient discharge [facility] Start: 01-23-2023 Administration of medication [facility] Start: 01-23-2023 Application of ice c ollar, cap or bag [facility] Start: 01-23-2023 Catheterization of vein [facility] Start: 01-23-2023 Introduction of urin miah catheter [facility] Start: 01-23-2023 Measuring intake and output [facility] Start: 01-23-2023 Notification of physician [facility] Start: 01-23-2023 Procedure discontinued [facility] Start: 01-23-2023 Provision of activit y privileges [facility] Start: 01-23-2023 Vital signs measurements [facility] Start: 01-23-2023 [facility] Start: 01-23-2023 Admission procedure [facility] CBC W Auto Different ial panel - Blood [facility] Work Phone: CBC W Auto Different ial panel - [facility] Erythrocyte mean cor puscular volume determination [facility] Hematocrit [Volume F raction] of Blood [facility] Hemoglobin [Mass/vol ume] in Blood [facility] Hepatitis B surface antigen measurement [facility] Work Phone: Hepatitis C antibody measurement [facility] Work Phone: HIV 1+2 Ab+HIV1 p24 Ag [Presence] in Serum or Plasma by Immunoassay [facility] Work Phone: Lead measurement, quantitative, blood [facility] Leukocytes [#/volume ] in Blood [facility] Mean corpuscular hem oglobin concentration determination [facility] Mean corpuscular hem oglobin determination [facility] Measurement of gluco se 2 hours after glucose challenge for glucose tolerance test [facility] bilirubin p soham [Mass/volume] - Serum or Plasma [facility] Work Phone: Neutrophil count [facility] Neutrophil percent differential count [facility] Patient Education After a Vagina l [facility] Work Phone: Patient referral [facility] Work Phone: Platelets [#/volume] in Blood [facility] Red blood cell count [facility] Red cell distributio n width determination [facility] Rubella IgG measurement [facility] Work Phone: Serologic test for syphilis [facility] T4 free measurement [facility] Thyroid stimulating hormone measurement [facility] Treponema sp Ab [Pre sence] in Serum [facility] Work Phone: Ultrasound scan for growth [facility] Immunizations Immunization Date Immunization Notes Care Provider Fa cility 02-19-2025 tetanus toxoid, redu shelia diphtheria toxoid, and acellular pertussis vaccine, adsorbed Yudi Méndez PLANT PHYSIOLOGIST-C Work Phone: [facility] 10-27-2022 tetanus toxoid, redu shelia diphtheria toxoid, and acellular pertussis vaccine, adsorbed PLANT PHYSIOLOGIST-C Yudi Méndez PLANT PHYSIOLOGIST Work Phone: [facility] Payers Date Payer Category Payer Self-pay 2024 Unknown [id number] 1995 Unknown [id number] .16.8 [id number] 1995 Unknown [id number]. [id number] Unknown [id number] Unknown [employer] [id number] Unknown [id number] 2.16.8 [id number] Unknown [id number] 2.16.8 [id number] Unknown [id number] 2.16.8 [id number] Unknown [id number] 2.16.8 [id number] Unknown [id number] 2.16.8 [id number] Unknown [id number] 2.16.8 [id number] Unknown [id number] 2.16.8 [id number] Unknown [id number] 2.16.8 [id number] Unknown [id number] 2.16.8 [id number] Unknown [id number] 2.16.8 [id number] Unknown [id number] 2.16.8 [id number] Unknown [id number] 2.16.8 [id number] Social History Date Type Detail Facility Start: 06-08-2022 End: 03-06-2023 Tobacco smoking status NHIS Unknown if ever smoked [facility] Start: 1995 Sex Assigned At Female W [facility] Start: 09-20-2024 Tobacco smoking stat us NHIS Never smoked tobacco (finding) [facility] Goals Date Patient Goal Desired Activity /State Clinical Notes 06-08-2022 to 03-19-2025 Note Date & Type Note Facility 03-19-2025 Progress note [facility] 02-19-2025 Progress note [facility] 01-29-2025 Progress note [facility] 01-29-2025 Progress note Note Date/Time January 29, 2025 3:43pm [facility]'s [address], [address] [place] [address] OFFICE VISIT Date of Service: 01/29/25 MR#: [id number] Acct: [id number] Name: JIMMY ATWOOD Rep #: [id number] : 1995 Provider: Dr. Isabel Escobar DO Age/Sex: 29/F [place] [facility] Status: Signed Intake Vital Signs 01/01/25 11:30 01/29/25 15:12 01/29/25 15:15 Height 5 ft 7 in 5 ft 7 in 5 ft 7 in Weight: 174 lb BMI 27.2 BP 118/69 Intake Visit Reasons: 26wk ob/glucose Senior It Recruiter Required: No Is patient in pain?: No Allergies Penicillins Allergy (Intermediate, Verified 01/29/25 15:11) Rash amoxicillin (From Augmentin) Adverse Reaction (Intermediate, Verified 01/29/25 15:11) Rash clavulanic acid (From Augmentin) Adverse Reaction (Intermediate, Verified 01/29/25 15:11) Rash sulfamethoxazole (From Bactrim) Adverse Reaction (Intermediate, Verified 01/29/25 15:11) Rash terbinafine (From Lamisil) Adverse Reaction (Intermediate, Verified 01/29/25 15:11) Rash trimethoprim (From Bactrim) Adverse Reaction (Intermediate, Verified 01/29/25 15:11) Rash Medications ?Medication ?Instructions ?Recorded ?Confirmed ?Type mv-mn 110-FA 180 mcg-om3 35 mg-dha 1 tab PO DAILY Chec k with primary 06/01/22 01/29/25 History 25 mg-epa 5 mg-fish oil chew tablet doctor ondansetron HCl 4 mg tablet 4 mg PO Q6-8H PRN nausea a nd 10/04/24 01/29/25 Rx vomiting #30 tabs Last Menstrual Period: 08/03/24 Zika: Zika virus screening: Negative : No PFSH PFSH Medical History GBS (group B 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), +RV culture, currently Surgical History Hx of tonsillectomy Family History Father Heart disease Social History adopted: No household members: spouse and children housing: house number of children: 1 current occupational status: employed 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 occupational exposures/hazards: No pets and animals: Yes (2) pets and animals: dog(s) history of recent travel: No sexually active: Yes Smoking Status: Never smoker alcohol intake: current alcohol intake frequency: holidays/special occasions only details: Not while substance use type: does not use well-balanced diet: daily or most days caffeine: Yes Type: coffee Number of servings: 1 eating out: rarely or never during the past year weight has: remained stable what type of physical activity do you participate in: walking frequency: 3-4 times per week duration: 15-30 minutes/day [place]/temple: Religious seatbelt use: always do you feel safe at home: Yes 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 Date Name GA/Weeks Outcome Route Bth Weight Gen Labor Lgth Anesthesia Del [facility] Provider FOB 01/23/23 Cm 41 live - full term 9#1oz Male epid ural [facility] H[place] 26wk ob/glucose Details: JIMMY ATWOOD is a 29 year old who presents for routine OB visit. OB Visit PARAG Calculator Estimated Delivery Date Method Current WG Current Estimate 05/14/25 Ultrasound #1 25w 0d Other Estimates 05/10/25 LMP (Certain) 25w 4d Expected Delivery Route/Plan Labor Preferences- CB/BF classes: [] labor support person: [] labor intervention preferences: [] pain management options preferred: [] cut cord/dad catch: [] : [] PP control planned: [] discussed possible routes of delivery and associated risks: [] special requests: [] Specific Issue/Plans Covid status: [] Flu vaccine: [] Tdap vaccine: [] Rhogam: [] LARC form signed: [] Problem list reviewed and updated with the most current plan of care details and appropriate orders placed. Relevant counseling for the gestational age provided. Continue routine care and follow up unless otherwise noted in visit notes/problem list details Initial Weight: 152 lb Date -?-?-?-?-?-?-?-?-?-?-?-?- EGA Weight BP Urine Prot -?-?-?-?-?-?-?-?-?-?-?--?- Glucose FHR FuHt Pres Dilation -?-?-?-?-?-?-?-?-?-?-?-?- Effaced St Visit Note 10/04/24 -?-?-?-?-?-?-?-?-?-?-?-?- 8w 2d 152 lb 6 oz (+6 oz) 124/82 -?-?-?-?-?-?-?-?-?-?-?-?- 171 -?-?-?-?-?-?-?-?-?-?-?-?- KW- CRL cons wit h dates. Declines NIPT. would like some appts in [facility]. 11/01/24 -?-?-?-?-?-?-?-?-?-?-?-?- 12w 2d 150 lb 8 oz (-1 lb 8 oz) 114/75 Negative -?-?-?-?-?-?-?-?-?-?-?-?- Negative 164 -?-?-?-?-?-?-?-?-?-?-?-?- JV- no complaint s today. has a thyroid cyst that is visible and biopsy with Dr. Suazo on 11/26/24 . 11/27/24 -?-?-?-?-?-?-?-?-?-?-?-?- 16w 0d 158 lb 2 oz (+6 lb 2 oz) 101/67 Negative -?-?-?-?-?-?-?-?-?-?-?-?- Negative 150 -?-?-?-?-?-?-?-?-?-?-?-?- KW- no vb/sridhar burns. good fm. US scheduled. 01/01/25 -?-?-?-?-?-?-?-?-?-?-?-?- 21w 0d 167 lb 8 oz (+15 lb 8 oz) 113/71 Negative -?-?-?--?-?-?-?-?-?-?-?-?- Negative 160 -?-?-?-?-?-?-?-?-?-?-?-?- KW- no vb/lof/ct x. good fm. thyroid nodule is benign but will need taken out after . TSH with next blood draw. KW- no vb/lof/ctx. good fm. thyroid nodule is benign but will need taken out after . TSH with next blood draw. glucose next visit 01/29/25 -?-?-?-?-?-?-?-?-?-?-?-?- 25w 0d 174 lb (+22 lb) 118/69 Negative -?-?-?-?-?-?-?-?-?-?-?-?- Negative 156 -?-?-?-?-?-?-?-?-?-?-?-?- JV- patient want s to know if fails 1 hr if can just do glucose testing. understands risks. ACOG First Trimester First Trimester: Desire for , Alcohol, Tobacco Cessation, Illicit/Recreational Drug/Substance Use, Intimate Partner Violence, Barriers to care, Unstable Housing, Communication Barriers, Environmental/Work Hazards, Anticipated Course of Care, Toxoplasmosis Precations, Use of Any medications, Sexual activity, Exercise, Dental Care, Sauna/Hot tub use, Seat Belt use, Childbirth classes/Hospital facilities, Travel, Indications for Ultrasound and Screening for Aneuploidy; Discussed Second Trimester Second Trimester: Signs and Symptoms of Labor, Selecting a care provider, Reproductive Life Planning & Contreception, Care Planning, Depression/Anxiety and Intimate Partner Violence; Discussed Tobacco Cessation Third Trimester Third Trimester: Pain Management Plans, Labor support person(s), Immediate Larc, Circumcision preference, Movement Monitoring, Signs and Symptoms of Preeclampsia, Labor Signs, Infant Feeding No , Education and Family Medical Leave or Disability Forms Results POC Urinalysis 2 Dip (Clinic) Office Urine Glucose Negative Last Edit by Zulema Light on 01/29/25 15: 41 Office Urine Protein Negative Last Edit by Zulema Light on 01/29/25 15: 41 Coding Level of Care Code OB Routine Diagnoses Thyroid nodule E04.1 Thyroid cyst E04.1 Nausea and vomiting during O21.9 Supervision of normal Z34.90 25 weeks gestation of Z3A.25 Weeks of gestation: 25 weeks Assessment and Plan Assessment and Plan (1) Thyroid nodule: Status: Acute Comment: Patient is a 29-year-old female with incidentally noted right thyroid nodule that was first noted by her mother through casual observation. It was suspected this nodule was related to a prior viral illness but patient confirms that it was never very tender. Formal thyroid ultrasound was completed and radiology has rated this a TI-RADS 3 lesion. Patient does not appear to have any symptoms from a compressive standpoint. We discussed her thyroid ultrasound in detail using hand drawing schematic to illustrate the location as well as introduce the topic of the TI-RADS grading system. It should be noted that patient's thyroid nodule was rated a TI-RADS 3, however, it could technically be reclassified as a TI-RADS 2 given that it truly has a mixed composition (an otherwise isoechoic) with a substantial cystic component. Yet, because there could have been a consideration to describe this as mostly solid I extended the recommendation for biopsy to Mrs. Atwood after providing a description of the procedure. She was readily receptive and the procedure was undertaken in uncomplicated fashion during today's visit. Complete details are given in the procedures section of today's note. (2) Thyroid cyst: Status: Acute (3) Nausea and vomiting during : Status: Acute (4) Supervision of normal : Status: Acute Comment: PRR,, PRAAG 05/10/25, THU Pabon, Sudheer (5) : Status: Acute Qualifiers: Weeks of gestation: 25 weeks Qualified Code(s): Z3A.25 - 25 weeks gestation of Comment: declines NIPT & Carrier testing Orders: Orders POC Urinalysis 2 Dip (Clinic) Today Lead, Blood Adult 16+yrs Today Z13.88 - Encounter for screening for disorder due to exposure to contaminants 01/29/25 1543 <Electronically signed by Carline Sharif DO> Date _ Carline Escobar DO Cosigner Signature: Date (if applicable) CC: ~ [facility] Work Phone: 1(993) 425-605104-08-2025 Evaluation note* Diagnosis Onset Date Resolution Status Admit Date Thyroid nodule acute November 26, 2024 2:01pm Nausea and vomiting during acute November 27, 2024 12:26pm acute November 27 12:26pm Supervision of normal acut e November 27, 2024 12:26pm Thyroid cyst acute November 27, 2 025 12:26pm Thyroid nodule acute November 27, 2024 12:26pm Nausea and vomiting during acute January 01, 2025 1 1:22am acute January 01, 2025 11:22am Supervision of normal acut e January 01, 2025 11:22am Thyroid cyst acute January 01 11:22am Thyroid nodule acute January 01, 2025 11:22am Nausea and vomiting during acute January 29, 2025 3:01pm acute January 29 3:01pm Supervision of normal acut e January 29, 2025 3:01pm Thyroid cyst acute January 29, 2 025 3:01pm Thyroid nodule acute January 29, 2025 3:01pm Nausea and vomiting during acute February 19, 2025 1 1:26am acute February 19, 2025 11:26am Screening for lead exposure acute February 19, 2025 11:26am Supervision of normal acut e February 19, 2025 11:26am Thyroid cyst acute February 19 11:26am Thyroid nodule acute February 19, 2025 11:26am Nausea and vomiting during acute March 07, 2025 4:05pm acute March 07 4:05pm Screening for lead exposure acute March 07, 2025 4:05pm Supervision of normal acut e March 07, 2025 4:05pm Thyroid cyst acute March 07, 2 025 4:05pm Thyroid nodule acute March 07, 2025 4:05pm [facility] Work Phone: 1(115) 424-929404-08-2025 Evaluation note* Diagnosis Onset Date Resolution Status Admit Date Thyroid nodule acute November 26, 2024 2:01pm Nausea and vomiting during acute November 27, 2024 12:26pm acute November 27 12:26pm Supervision of normal acut e November 27, 2024 12:26pm Thyroid cyst acute November 27, 2 025 12:26pm Thyroid nodule acute November 27, 2024 12:26pm Nausea and vomiting during acute January 01, 2025 1 1:22am acute January 01, 2025 11:22am Supervision of normal acut e January 01, 2025 11:22am Thyroid cyst acute January 01 11:22am Thyroid nodule acute January 01, 2025 11:22am Nausea and vomiting during acute January 29, 2025 3:01pm acute January 29 3:01pm Supervision of normal acut e January 29, 2025 3:01pm Thyroid cyst acute January 29, 2 025 3:01pm Thyroid nodule acute January 29, 2025 3:01pm Nausea and vomiting during acute February 19, 2025 1 1:26am acute February 19, 2025 11:26am Screening for lead exposure acute February 19, 2025 11:26am Supervision of normal acut e February 19, 2025 11:26am Thyroid cyst acute February 19 11:26am Thyroid nodule acute February 19, 2025 11:26am Nausea and vomiting during acute March 07, 2025 4:05pm acute March 07 4:05pm Screening for lead exposure acute March 07, 2025 4:05pm Supervision of normal acut e March 07, 2025 4:05pm Thyroid cyst acute March 07, 2 025 4:05pm Thyroid nodule acute March 07, 2025 4:05pm Nausea and vomiting during acute March 19, 2025 12:30pm acute March 19 12:30pm Screening for lead exposure acute March 19, 2025 12:30pm Supervision of normal acut e March 19, 2025 12:30pm Thyroid cyst acute March 19, 2 025 12:30pm Thyroid nodule acute March 19, 2025 12:30pm [facility] Work Phone: 1(845) 829-735203-14-2025 Evaluation note* Diagnosis Onset Date Resolution Status Admit Date Nausea and vomiting during acute November 01, 2024 2:18pm acute November 01 2:18pm Supervision of normal acut e November 01, 2024 2:18pm Thyroid cyst acute November 01, 2024 2:18pm Thyroid nodule acute November 26, 2024 2:01pm Nausea and vomiting during acute November 27, 2024 12:26pm acute November 27 12:26pm Supervision of normal acut e November 27, 2024 12:26pm Thyroid cyst acute November 27, 2 025 12:26pm Thyroid nodule acute November 27, 2024 12:26pm Nausea and vomiting during acute January 01, 2025 1 1:22am acute January 01, 2025 11:22am Supervision of normal acut e January 01, 2025 11:22am Thyroid cyst acute January 01 11:22am Thyroid nodule acute January 01, 2025 11:22am Nausea and vomiting during acute January 29, 2025 3:01pm acute January 29 3:01pm Supervision of normal acut e January 29, 2025 3:01pm Thyroid cyst acute January 29, 2 025 3:01pm Thyroid nodule acute January 29, 2025 3:01pm [facility] Work Phone: 1(451) 458-416303-14-2025 Evaluation note* Diagnosis Onset Date Resolution Status Admit Date Nausea and vomiting during acute November 01, 2024 2:18pm acute November 01 2:18pm Supervision of normal acut e November 01, 2024 2:18pm Thyroid cyst acute November 01, 2024 2:18pm Thyroid nodule acute November 26, 2024 2:01pm Nausea and vomiting during acute November 27, 2024 12:26pm acute November 27 12:26pm Supervision of normal acut e November 27, 2024 12:26pm Thyroid cyst acute November 27, 2 025 12:26pm Thyroid nodule acute November 27, 2024 12:26pm Nausea and vomiting during acute January 01, 2025 1 1:22am acute January 01, 2025 11:22am Supervision of normal acut e January 01, 2025 11:22am Thyroid cyst acute January 01 11:22am Thyroid nodule acute January 01, 2025 11:22am Nausea and vomiting during acute January 29, 2025 3:01pm acute January 29 3:01pm Supervision of normal acut e January 29, 2025 3:01pm Thyroid cyst acute January 29, 2 025 3:01pm Thyroid nodule acute January 29, 2025 3:01pm Nausea and vomiting during acute February 19, 2025 1 1:26am acute February 19, 2025 11:26am Screening for lead exposure acute February 19, 2025 11:26am Supervision of normal acut e February 19, 2025 11:26am Thyroid cyst acute February 19 11:26am Thyroid nodule acute February 19, 2025 11:26am [facility] Work Phone: 1(746) 755-139002-14-2025 Evaluation note* Diagnosis Onset Date Resolution Status Admit Date acute October 04, 2024 2:27pm Supervision of normal acute October 04, 2 025 2:27pm Nausea and vomiting during acute November 01, 2024 2:18pm acute November 01 2:18pm Supervision of normal acute November 01, 2024 2:18pm Thyroid cyst acute November 01, 2024 2:18pm Thyroid nodule acute November 26, 2024 2:01pm Nausea and vomiting during acute November 27, 2024 12:26pm acute November 27 12:26pm Supervision of normal acute November 27, 2024 12:26pm Thyroid cyst acute November 27, 2 025 12:26pm Thyroid nodule acute November 27, 2024 12:26pm Nausea and vomiting during acute January 01, 2025 1 1:22am acute January 01, 2025 11:22am Supervision of normal acute January 01, 2025 1 1:22am Thyroid cyst acute January 01 11:22am Thyroid nodule acute January 01, 2025 11:22am [facility] Work Phone: 1([phone]) 853-787102-14-2025 Evaluation note* Diagnosis Onset Date Resolution Status Admit Date acute October 04, 2024 2:27pm Supervision of normal acute October 04, 2 025 2:27pm Nausea and vomiting during acute November 01, 2024 2:18pm acute November 01 2:18pm Supervision of normal acute November 01, 2024 2:18pm Thyroid cyst acute November 01, 2024 2:18pm Thyroid nodule acute November 26, 2024 2:01pm Nausea and vomiting during acute November 27, 2024 12:26pm acute November 27 12:26pm Supervision of normal acute November 27, 2024 12:26pm Thyroid cyst acute November 27, 2 025 12:26pm Thyroid nodule acute November 27, 2024 12:26pm Nausea and vomiting during acute January 01, 2025 1 1:22am acute January 01, 2025 11:22am Supervision of normal acute January 01, 2025 1 1:22am Thyroid cyst acute January 01 11:22am Thyroid nodule acute January 01, 2025 11:22am Nausea and vomiting during acute January 29, 2025 3:01pm acute January 29 3:01pm Supervision of normal acute January 29, 2025 3:01pm Thyroid cyst acute January 29, 2 025 3:01pm Thyroid nodule acute January 29, 2025 3:01pm [facility] Work Phone: 1(882) 616-135806-07-2023 Discharge summary Author Manjula Goldman [facility] January 25, 2023 8:48am Note Date/Time January 25, 2023 8:48a m [facility] Medical Records Department [address] [place] [id number] Instructions for Home/Discharge Instructions 01/25/23 0847 MR#: [id number] Acct: [id number] Name: JIMMY ATWOOD Rep #:[id number] : 1995 27 From: Manjula Goldman CNM PCP: MANPREET Calvin Status:ADM IN Discharge Instructions Diet Discharge Diet: No restrictions Activity May resume sexual activity in: 6 weeks Weight Bearing Status: Full weight bearing Dressing / Incision Call your doctor if your incision/area has: Sudden Increased Bleeding, IncreasedPain/ Swelling and Foul Smelling Discharge Call your doctor if you observe: Fever of 101 or Higher, Numbness or Tingling, Change in Color, Inability to urinate, Inability to have a bowel movement, Usingmore than 1 pad per hour, Shortness of breath, Dizziness, Fainting spells, Chestpain, Calf discomfort and Uncontrolled pain Follow Up Care Please Follow Up With: Payal Hutchins CNM Test Results: Test results from this visit will be discussed in further detail at your follow- up appointment, if applicable. Discharge Plan Admission Admit Date/Time: 01/23/23 07:00 Attending Provider: Payal Hutchins Primary Care Provider: Yudi Méndez NP Discharge Orders/Prescriptions Prescriptions: No Action PNV no.[id number] 180 mcg-35 mg- 25 mg-5 mg tablet,chewable 1 tab PO DAILY azithromycin [Zithromax Z-Aj] 250 mg tablet 250 mg PO DAILY 6 Days Qty: 6 0RF Rx Instructions: start on day 2 of therapy ferrous sulfate [iron] 325 mg (65 mg iron) Tablet 325 mg PO DAILY Referrals / Follow Up: Yudi Méndez NP, KRISTEN-C [Primary Care Provider] - Disposition Disposition (needs filled in before D/C Order can be placed): Home, Self Care 01/25/23 0848<Electronically signed by Manjula Goldman CNM>Manjula Goldman CNM CC: JUAN FC Yudi Méndez ~ Signed [facility] Work Phone: 1([phone]) 282-161306-07-2023 Progress note Author Manjula Goldman [facility] January 25, 2023 8:47am Note Date/Time January 25, 2023 8:47a m [facility] Medical Records Department [address] [place] [address] Progress Note - OBGYN 01/25/23 0845 MR#: [id number] Acct: [id number] Name: JIMMY ATWOOD Rep #:[id number] : 1995 27 From: Manjula Goldman CNM PCP: MANPREET Calvin Status:ADM IN Location: VE806-6 Subjective Subjective Patient doing well without complaints. Tolerating PO. Ambulating and voiding without difficulty. Feeding well. Denies chest pain, shortness of breath, calf pain/swelling, fevers, chills, lightheadedness. Objective Data Objective Data Vital Signs: Vital Signs Temp Pulse Resp BP Pulse Ox O2 Del Method 98.0 F 67 15 126/87 H 99 Room Air 01/25/23 02:31 01/25/23 02:31 01/25/23 02:31 01/25/23 02:31 01/24/23 03:48 01/25/23 02:31 Oxygen Delivery Method Room Air Weight: 188 lb Body Mass Index (BMI) 29.4 Intake & Output: Intake and Output for Last 24 Hours 01/23/23 01/24/23 01/25/23 23:59 23:59 23:59 Intake Total 2699.46 / 2699.46 250 / 250 Output Total 200 / 200 800 / 800 Balance 2499.46 / 2499.46 -550 / -550 Lab / Micro Data Attestation: I reviewed the patient's lab results. Result Diagrams: 01/23/23 07:45 ROS Constitutional Constitutional: Reports systems reviewed and no addt'l complaints, except as documented; Denies anorexia or headache(s) Cardiovascular Cardiovascular: Reports systems reviewed and no addt'l complaints, except as documented; Denies dizziness, dyspnea, nausea or tachypnea Respiratory/Chest Respiratory/Chest: Reports systems reviewed and no addt'l complaints, except as documented; Denies cough, dyspnea, shortness of breath at rest or tachypnea Gastrointestinal Gastrointestinal: Reports systems reviewed and no addt'l complaints, except as documented; Denies abdominal pain, constipation or nausea Genitourinary Genitourinary: Reports systems reviewed and no addt'l complaints, except as documented; Denies burning urination, difficulty urinating, dysuria, urinary frequency or urinary incontinence Musculoskeletal Musculoskeletal: Reports systems reviewed and no addt'l complaints, except as documented Integumentary Integumentary: Reports systems reviewed and no addt'l complaints, except as documented Neurologic Neurologic: Reports systems reviewed and no addt'l complaints, except as documented; Denies abnormal speech, dizziness or headache(s) Psychiatric Psychiatric: Reports systems reviewed and no addt'l complaints, except as documented Endocrine Endocrinology: Reports systems reviewed and no addt'l complaints, except as documented Hematologic/Lymphatic Hematologic/Lymphatic: Reports systems reviewed and no addt'l complaints, exceptas documented Physical Exam Const alert, oriented x3 and no apparent distress Neck full ROM Chest inspection of breasts normal Nipple/Areola: nipples/areola normal Resp normal respiratory effort, normal air movement and no retractions Effort and Inspection: able to speak in complete sentences and symmetric chest movement GI soft to palpation Bladder / Kidney Exam: bladder normal to palpation Uterus Palpation: uterus fundus firm (U) Extremity normal to inspection and full ROM Psych mental status grossly normal, thought process normal and cooperative Assessment & Plan (1) (spontaneous vaginal delivery): COMMENT: IOL postdates at 41. . boy: cm. PLAN: s/p PPD # 2 1. routine post delivery care 2. breast feeding- support given 3. rh positive 4. rubella immune 5. Discharge home (2) Abnormal glucose affecting : COMMENT: BS done at home due to throwing up 3 hour gtt. She tracked for 2 weeks, fastings in the 80s and 2 hours after eating mostly under the 120s. growth us at 36 weeks-87% (3) Anemia during : COMMENT: add FE. Recheck CBC 4 weeks:improved (4) Supervision of normal first : COMMENT: [id number], PARAG 01/16/23, boy Cm Spouse Sudheer Charges/Coding Multi Select Codes Urinary/Genital Urinary/Genital CPT Codes: No Charge 01/25/23 0847 <Electronically signed by Manjula Goldman CNM> Cosigner Signature (if applicable): CC: ~ Signed [facility] Work Phone: 1(432) 774-444806-06-2023 Progress note Author Manjula Goldman [facility] January 24, 2023 12:24pm Note Date/Time January 24, 2023 12:24 pm [facility] Medical Records Department [address] [place] [address] Progress Note - OBGYN 01/24/23 1222 MR#: [id number] Acct: [id number] Name: JIMMY ATWOOD Rep #:[id number] : 1995 27 From: Manjula Goldman CNM PCP: MANPREET Calvin Status:ADM IN Location: DU380-5 Subjective Subjective Patient doing well without complaints. Tolerating PO. Ambulating and voiding without difficulty. Feeding well. Denies chest pain, shortness of breath, calf pain/swelling, fevers, chills, lightheadedness. Objective Data Objective Data Vital Signs: Vital Signs Temp Pulse Resp BP Pulse Ox O2 Del Method 97.7 F L 81 16 115/69 99 Room Air 01/24/23 08:07 01/24/23 08:07 01/24/23 08:07 01/24/23 08:07 01/24/23 03:48 01/24/23 08:07 Oxygen Delivery Method Room Air Weight: 188 lb Body Mass Index (BMI) 29.4 Intake & Output: Intake and Output for Last 24 Hours 01/22/23 01/23/23 01/24/23 23:59 23:59 23:59 Intake Total 2699.46 / 2699.46 250 / 250 Output Total 200 / 200 800 / 800 Balance 2499.46 / 2499.46 -550 / -550 Lab / Micro Data Attestation: I reviewed the patient's lab results. Result Diagrams: 01/23/23 07:45 Labs: Laboratory Results - last 24 hr 01/24/23 05:29: POC Glucose 86 ROS Constitutional Constitutional: Reports systems reviewed and no addt'l complaints, except as documented; Denies anorexia or headache(s) Cardiovascular Cardiovascular: Reports systems reviewed and no addt'l complaints, except as documented; Denies dizziness, dyspnea, nausea or tachypnea Respiratory/Chest Respiratory/Chest: Reports systems reviewed and no addt'l complaints, except as documented; Denies cough, dyspnea, shortness of breath at rest or tachypnea Gastrointestinal Gastrointestinal: Reports systems reviewed and no addt'l complaints, except as documented; Denies abdominal pain, constipation or nausea Genitourinary Genitourinary: Reports systems reviewed and no addt'l complaints, except as documented; Denies burning urination, difficulty urinating, dysuria, urinary frequency or urinary incontinence Musculoskeletal Musculoskeletal: Reports systems reviewed and no addt'l complaints, except as documented Integumentary Integumentary: Reports systems reviewed and no addt'l complaints, except as documented Neurologic Neurologic: Reports systems reviewed and no addt'l complaints, except as documented; Denies abnormal speech, dizziness or headache(s) Psychiatric Psychiatric: Reports systems reviewed and no addt'l complaints, except as documented Endocrine Endocrinology: Reports systems reviewed and no addt'l complaints, except as documented Hematologic/Lymphatic Hematologic/Lymphatic: Reports systems reviewed and no addt'l complaints, exceptas documented Physical Exam Const alert, oriented x3 and no apparent distress Neck full ROM Resp normal respiratory effort, normal air movement and no retractions Effort and Inspection: able to speak in complete sentences and symmetric chest movement GI soft to palpation Bladder / Kidney Exam: bladder normal to palpation Extremity normal to inspection and full ROM Psych mental status grossly normal, thought process normal and cooperative Assessment & Plan (1) (spontaneous vaginal delivery): COMMENT: IOL postdates at 41. . boy: cm. PLAN: s/p PPD # 1 1. routine post delivery care 2. breast feeding- support given 3. rh positive 4. rubella immune (2) Encounter for induction of labor: COMMENT: IOL for postdates. 1.5/80/-3 pitocin and saenz bulb (3) Abnormal glucose affecting : COMMENT: BS done at home due to throwing up 3 hour gtt. She tracked for 2 weeks, fastings in the 80s and 2 hours after eating mostly under the 120s. growth us at 36 weeks-87% Charges/Coding Multi Select Codes Urinary/Genital Urinary/Genital CPT Codes: No Charge 01/24/23 1224 <Electronically signed by Manjula Goldman CNM> Cosigner Signature (if applicable): CC: ~ Signed [facility] Work Phone: 1(832) 152-915206-06-2023 Discharge summary Author Payal Hutchins [facility] January 23, 2023 10:20pm Note Date/Time January 23, 2023 10:20 pm [facility] Medical Records Department [address] [place] [address] Instructions for Home/Discharge Instructions 01/23/23 2220 MR#: [id number] Acct: [id number] Name: JIMMY ATWOOD Rep #:[id number] : 1995 27 From: Payal Hutchins CNM PCP: MANPREET Calvin Status:ADM IN Discharge Instructions Diet Discharge Diet: No restrictions Activity Discharge Activity: May Not Drive and May Shower May resume sexual activity in: 6 weeks Weight Bearing Status: Full weight bearing Dressing / Incision Call your doctor if your incision/area has: Sudden Increased Bleeding, IncreasedPain/ Swelling and Foul Smelling Discharge Call your doctor if you observe: Fever of 101 or Higher, Numbness or Tingling, Change in Color, Inability to urinate, Inability to have a bowel movement, Usingmore than 1 pad per hour, Shortness of breath, Dizziness, Fainting spells, Chestpain, Calf discomfort and Uncontrolled pain Follow Up Care Please Follow Up With: Payal Hutchins CNM When: 6 weeks , please call office to make an appointment. Congratulations on the of your baby boy!!! Test Results: Test results from this visit will be discussed in further detail at your follow- up appointment, if applicable. Discharge Plan Admission Admit Date/Time: 01/23/23 07:00 Attending Provider: Payal Hutchins Primary Care Provider: Yudi Méndez NP Discharge Orders/Prescriptions Prescriptions: No Action PNV no.[id number] 180 mcg-35 mg- 25 mg-5 mg tablet,chewable 1 tab PO DAILY azithromycin [Zithromax Z-Aj] 250 mg tablet 250 mg PO DAILY 6 Days Qty: 6 0RF Rx Instructions: start on day 2 of therapy ferrous sulfate [iron] 325 mg (65 mg iron) Tablet 325 mg PO DAILY Referrals / Follow Up: Yudi Méndez NP, KRISTEN-C [Primary Care Provider] - Disposition Disposition (needs filled in before D/C Order can be placed): Home, Self Care 01/23/232219<Electronically signed by Payal Hutchins CNM>Payal Hutchins CNM CC: JUAN FC Yudi Méndez ~ Signed [facility] Work Phone: 1(319) 937-794906-05-2023 Procedure [facility] 01-23-2023 History and physical note Author Payal Hutchins [facility] January 23, 2023 8:20am Note Date/Time January 23, 2023 8:20a m [facility] Medical Records Department [address] [place] [address] H&P Exam - RUBBER BLOCK LAYER 01/23/23812 MR#: [id number] Acct: [id number] Name: JIMMY ATWOOD Rep #:[id number] : 1995 From: Payal Hutchins CNM PCP: MANPREET Calvin Status:ADM IN Location: PT391-1 HPI - General General Date of Admission: 01/23/23 HPI Narrative JIMMY ATWOOD, is a 27 F who presents at 41 weeks for IOL for postdates. course complicated by abnormal glucose screening with inability to tolerate 3 hour, tested glucose x2 weeks with normal glucose and fasting sugars again during 38 weeks with normal fastings. growth scan at 36 weeks [id number]% EFW. GBS positive, PCN allergic, will treat with vancomycin. Maternal Data Information PARAG Calculator Estimated Delivery Date Method Current WG Current Estimate 01/16/23 LMP (Certain) 41w 0d Other Estimates 01/13/23 Ultrasound #1 41w 3d PFSH PFSH Medical History GBS (group B 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), +RV culture, currently Home Medications promethazine 12.5 mg tablet 12.5 mg PO Q6H PRN nausea and vomiting #60 tabs 05/24/22 [Rx Last Taken Unknown] PNV 178-FA 180 mcg-om3 35 mg-dha 25 mg-epa 5 mg-fish oil chew tablet tab PO 06/01/22 [History Last Taken Unknown] azithromycin 250 mg tablet (Zithromax Z-Aj) 250 mg PO DAILY 6 days #6 tabs 01/18/23 [Rx Last Taken Unknown] Allergy/AdvReac Type Severity Reaction Status Date / Time Penicillins Allergy Other Verified 01/18/23 09:10 amoxicillin [From Augmentin] AdvReac Unknown unknown Verified 01/18/23 09:10 clavulanic acid AdvReac Unknown unknown Verified 01/18/23 09:10 [From Augmentin] sulfamethoxazole AdvReac Unknown unknown Verified 01/18/23 09:10 [From Bactrim] terbinafine [From Lamisil] AdvReac Unknown unknown Verified 01/18/23 09:10 trimethoprim [From Bactrim] AdvReac Unknown unknown Verified 01/18/23 09:10 Surgical History Hx of tonsillectomy Social History adopted: No household members: spouse housing: house current occupational status: employed 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 occupational exposures/hazards: No pets and animals: Yes pets and animals: dog(s) history of recent travel: No sexually active: Yes Smoking Status: Never smoker alcohol intake: never substance use type: does not use well-balanced diet: daily or most days caffeine: Yes Type: coffee Number of servings: 1 eating out: 1-3 times/week during the past year weight has: remained stable what type of physical activity do you participate in: walking frequency: 3-4 times per week duration: 15-30 minutes/day [place]/temple: Religious seatbelt use: always do you feel safe at home: Yes 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 History 1 Elective abortions Hx Para 0 Spontaneous abortions Hx # Term Pregnancies Ectopic pregnancies Hx # Pregnancies Multiple births # of living children Visit Details Expected Delivery Route/Plan by 41 Labor Preferences- CB/BF classes: encouraged- in november labor support person: Sudheer labor intervention preferences: [] pain management options preferred: epidural cut cord/dad catch: Yes : Yes PP control planned: discussed discussed possible routes of delivery and associated risks: [] special requests: [] Plans Covid status:discussed Flu vaccine: discussed Tdap vaccine: given Rhogam: na LARC form signed: yes movement and labor precautions reviewed. Problem list reviewed and updated with the most current plan of care details and appropriate orders placed. Relevant counseling for the gestational age provided. Continue routine care and follow up unless otherwise noted in visit notes/problem list details OB Flowsheet Initial Weight: Not Recorded Date -?-?-?-?-?-?-?-?-?-?-?-?- EGA Weight BP Urine Prot -?-?-?-?-?-?-?-?-?-?-?-?- Glucose FHR FuHt Pres Dilation -?-?-?-?-?-?-?-?-?-?-?-?- Effaced St Visit Note 06/08/22 -?--?-?-?-?-?-?-?-?-?-?-?- 8w 2d 151 lb 123/79 -?-?-?-?-?-?-?-?-?-?-?-?- -?-?-?-?-?-?-?-?-?-?-?-?- JV- CRL consiste nt with LMP. 07/04/22 -?-?-?-?-?-?-?-?-?-?-?-?- 12w 0d 159 lb 6 oz 114/72 Nega tive -?-?-?-?-?-?-?-?-?-?-?-?- Negative 160 -?-?-?-?-?-?-?-?-?-?-?-?- LC- feeling bett er. no vb/cramping. to obtain NOB labs today. declines afp after discussion. 08/03/22 -?-?-?-?-?-?-?-?-?-?-?-?- 16w 2d 161 lb 116/74 Negative -?-?-?-?-?-?-?-?--?-?-?-?- Negative 155 -?-?-?-?-?-?-?-?-?-?-?-?- JV-no lof, vagin al bleeding, or cramping. normal labs 09/05/22 -?-?-?-?-?-?-?-?-?-?-?-?- 21w 0d 163 lb 8 oz 110/68 Nega tive -?-?-?-?-?-?-?-?-?-?-?-?- Negative 151 -?-?-?-?-?-?-?-?-?-?-?-?- MH-No VB. Jatin Bhatti Has MFM US today 10/03/22 -?-?-?-?-?-?-?-?-?-?-?-?- 25w 0d 172 lb 6 oz 124/80 Nega tive -?-?-?-?-?-?-?-?-?-?-?-?- Negative 145 -?-?-?-?-?-?-?-?-?-?-?-?- SM- no vb lof go od fm n oreular ctx 10/27/22 -?-?-?-?-?-?-?-?-?-?-?-?- 28w 3d 173 lb 4 oz 102/70 Nega tive -?-?-?-?-?-?-?-?-?-?-?-?- Negative 148 29 -?-?-?-?-?-?-?-?-?-?-?-?- MH-No Vb, LOF. G ood FM. Needs 3 hr GTT, add FE daily. Larc, tdap 11/09/22 -?-?-?-?-?-?-?-?-?-?-?-?- 30w 2d 177 lb 4 oz 117/77 Nega tive -?-?-?-?-?-?-?-?-?-?-?-?- Negative 140 32 -?-?-?-?-?-?-?-?-?-?-?-?- KW +FM. No lof/v b/ctx. FMLA papers given to solderer assembler. Blood sugars reviewed and discussed with JV. Plan to do fasting BS for next week. discussed GBS 11/22/22 -?-?-?-?-?-?-?-?-?-?-?-?- 32w 1d 178 lb 4 oz 121/77 Nega tive -?-?-?-?-?-?-?-?-?-?-?-?- Negative 153 33 -?-?-?-?-?-?-?-?-?-?-?-?- -No VB, LOF. G ood FM. No CTX. 12/07/22 -?-?-?-?-?-?-?-?-?-?-?-?- 34w 2d 185 lb 8 oz 121/78 Nega tive -?-?-?-?-?-?-?-?-?-?-?-?- Negative 155 34 -?-?-?-?-?-?-?-?-?-?-?-?- JV- no lof, vagi nal bleeding. or dec fm. no complaints. growth scan next visit 12/20/22 -?-?-?-?-?-?-?-?-?-?-?-?- 36w 1d 193 lb 2 oz 120/80 Nega tive -?-?-?-?-?-?-?-?-?-?-?-?- Negative 131 35 Cephalic 1 -?-?-?-?-?-?-?-?-?-?-?-?- 70 - JV- growth scan today. gbs collected. no complaints. 12/28/22 -?-?-?-?-?-?-?-?-?-?-?-?- 37w 2d 190 lb 126/82 Negative -?-?-?-?-?-?-?-?-?-?-?-?- Negative 130 38 Cephalic 1 .5 -?-?-?-?-?-?-?-?-?-?-?-?- 70 - KW- +FM, n o vb/lof/ctx. Growth scan at 87%. GBs pos KW- +FM, no vb/lof/ctx. Grow th scan at 87%. GBs pos. labor precautions 01/03/23 -?-?-?-?-?-?-?-?-?-?-?-?- 38w 1d 191 lb 6 oz 131/83 Nega tive -?-?-?-?-?-?-?-?-?-?-?-?- Negative 145 38 Cephalic 1 .5 -?-?-?-?-?-?-?-?-?-?-?-?- - SM- reivew ed BS readings taken a few weeks ago, discussed checking them again this week due to higher EFW. 01/09/23 -?-?-?-?-?-?-?-?-?-?-?-?- 39w 0d 194 lb 4 oz 123/83 Nega tive -?-?-?-?-?-?-?-?-?-?-?-?- Negative 140 40 Cephalic 1 .5 -?--?-?-?-?-?-?-?-?-?-?-?- 70 - SM- no vb lof good fm no regular ctx 01/18/23 -?-?-?-?-?-?-?-?-?-?-?-?- 40w 2d 190 lb 4 oz 123/82 Trac e -?-?-?-?-?-?-?-?-?-?-?-?- Negative 145 40 Cephalic 1 .5 -?-?-?-?-?-?-?-?-?-?-?-?- 80 -2 JV- IOL se t up for next monday. no lof, vaginal bleeding or dec fm. but has has sinus infection. likely viral but will start z-pack due to incr risk of secondary bacterial infection that could happen when goes to hospital for labor ROS Cardiovascular Cardiovascular: Denies abdominal pain, chest pain, diaphoresis or dyspnea Respiratory/Chest Respiratory/Chest: Denies change in mental status, chest congestion, chest tightness, cough, shortness of breath at rest, shortness of breath with exertion, breast mass, breast pain, breast skin changes, breast swelling, change in breast shape or nipple discharge Genitourinary Genitourinary: Reports change in urinary stream Musculoskeletal Musculoskeletal: Reports none Integumentary Integumentary: Reports none Neurologic Neurologic: Reports none Psychiatric Psychiatric: Reports none Endocrine Endocrinology: Reports none Hematologic/Lymphatic Hematologic/Lymphatic: Reports none Allergic/Immunologic Allergic/Immunologic: Reports none Vital Signs Vital Signs Vital Signs: 01/23/23 07:29 01/23/23 07:29 01/23/23 07:29 Temperature Temperature Source Temporal Pulse Rate 86 Blood Pressure 135/85 H BP Systolic 135 BP Diastolic 85 01/23/23 07:29 Temperature 97.4 F L Temperature Source Pulse Rate Blood Pressure BP Systolic BP Diastolic Weight Weight: 188 lb Body Mass Index (BMI) 29.4 Physical Exam Const alert, oriented x3 and no apparent distress General Appearance: cooperative, comfortable and well kempt Orientation / Consciousness: awake and oriented to person Exam Limitations: no limitations HEENT normocephalic Neck full ROM Chest inspection of chest normal Resp normal respiratory effort, normal air movement and no retractions Effort and Inspection: able to speak in complete sentences and symmetric chest movement Cardio regular rate Peripheral Pulses: pulses 2+ throughout GI normal to inspection, nondistended, normoactive bowel sounds Inspection: gravid no CVA tenderness and appearance of the vagina normal External Female Exam: normal appearance of the urethra; Negative for external lesion OB / External & Speculum: external exam normal Manual OB Exam: estimated gestational size appropriate and presentation cephalic Uterus Palpation: Negative for uterus tender Extremity normal to inspection Skin no rashes or lesions noted Psych Activity / Motor Behavior: appropriate eye contact Speech: normal speech Labs Labs Labs: Blood Type O POSITIVE Antibody Screen NEGATIVE Hct 33.6 % (37-47) L Hgb 11.1 g/dL (12.0-15.0) L Obstetrics US Syphilis Total Ab Non-reactive Rubella IgG Antibody Reactive (Nonreactive) Hep Bs Antigen Non-Reactive (Nonreactive) Chlamydia DNA (JOSE J) Negative (Negative) Neisseria gonorrhoeae DNA (JOSE J) Negative (Negative) HIV 1&2 Antibody Non-Reactive (Nonreactive) Glucose 1 Hr 50 gm 149 mg/dL (70-140) H Assessment & Plan (1) GBS (group B 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), +RV culture, currently : COMMENT: treat with Vancomycin at delivery (2) Abnormal glucose affecting : COMMENT: BS done at home due to throwing up 3 hour gtt. She tracked for 2 weeks, fastings in the 80s and 2 hours after eating mostly under the 120s. growth us at 36 weeks-87% (3) Anemia during : COMMENT: add FE. Recheck CBC 4 weeks:improved (4) Supervision of normal first : COMMENT: [id number], PARAG 01/16/23, boy [place] Spouse Sudheer (5) : QUALIFIERS: Weeks of gestation: 40 weeks Qualified Code(s): Z3A.40 - 40 weeks gestation of COMMENT: anatomy nl, declined afp NIPT & Carrier testing (6) Encounter for induction of labor: COMMENT: IOL for postdates. 1.5/-3 pitocin and saenz bulb PLAN: Dr. Gay updated on admission, exam and POC. agrees with primary midwifery management for postdates IOL, available for consultation/collaboration. 01/23/23 08 <Electronically signed by Payal Hutchins CNM> Cosigner Signature (if applicable): CC: QUITA Hutchins; PLANT PHYSIOLOGISTCarson Méndez~ Signed [facility] Work Phone: 1(618) 768-512110-19-2022 NotePap Smear Specimen AdequacyOctober 2021 11:08amComment.Satisfactory for evaluation. Endocervical and/or squamous metaplasticcells (endocervical component)are present.[facility] A#[id number] Work Phone: Comment on above:Satisfactory for evaluation. Endocervical and/or squamous metaplasticcells (endocervical component)are present.06-08-2022 NotePap Smear Specimen AdequacyOctober 2021 10:08am Comment.Satisfactory for evaluation. Endocervical and/or squamous metaplasticcells (endocervical component)are present.[facility] A#[id number] Work Phone: Comment on above:Satisfactory for evaluation. Endocervical and/or squamous metaplasticcells (endocervical component)are present.Evaluation note* Diagnosis Onset Date Resolution Status Acute pharyngitis acute Contact with or suspected ex posure to other viral communicable disease acute acute Supervision of normal first acute [facility] Work Phone: Evaluation note* Diagnosis Onset Date Resolution Status Acute pharyngitis acute Contact with or suspected ex posure to other viral communicable disease acute acute Supervision of normal first acute Hyperbilirubinemia acute acute Supervision of normal first acute [facility] Work Phone: Evaluation note* Diagnosis Onset Date Resolution Status acute Supervision of normal first acute Hyperbilirubinemia resolved acute Supervision of normal first acute acute Supervision of normal first acute Abnormal glucose affecting acute Anemia during acut e acute Supervision of normal first acute [facility] Work Phone: Evaluation note* Diagnosis Onset Date Resolution Status acute Supervision of normal first acute Hyperbilirubinemia resolved acute Supervision of normal first acute acute Supervision of normal first acute Abnormal glucose affecting acute Anemia during acut e acute Supervision of normal first acute Abnormal glucose affecting acute Anemia during acut e acute Supervision of normal first acute Abnormal glucose affecting acute Anemia during acut e acute Supervision of normal first acute [facility] Work Phone: Evaluation note* Diagnosis Onset Date Resolution Status acute Supervision of normal first acute acute Supervision of normal first acute Abnormal glucose affecting acute Anemia during acut e acute Supervision of normal first acute Abnormal glucose affecting acute Anemia during acut e acute Supervision of normal first acute Abnormal glucose affecting acute Anemia during acut e acute Supervision of normal first acute Abnormal glucose affecting acute Anemia during acut e acute Supervision of normal first acute Abnormal glucose affecting acute Anemia during acut e acute Supervision of normal first acute [facility] Work Phone: Evaluation note* Diagnosis Onset Date Resolution Status acute Supervision of normal first acute Abnormal glucose affecting acute Anemia during acut e acute Supervision of normal first acute Abnormal glucose affecting acute Anemia during acut e acute Supervision of normal first acute Abnormal glucose affecting acute Anemia during acut e acute Supervision of normal first acute Abnormal glucose affecting acute Anemia during acut e acute Supervision of normal first acute Abnormal glucose affecting acute Anemia during acut e acute Supervision of normal first acute Abnormal glucose affecting acute Anemia during acut e GBS (group B Streptococcus c arrier), +RV culture, currently acute acute Supervision of normal first acute Abnormal glucose affecting acute Anemia during acut e GBS (group B Streptococcus c arrier), +RV culture, currently acute acute Supervision of normal first acute Abnormal glucose affecting acute Anemia during acut e GBS (group B Streptococcus c arrier), +RV culture, currently acute acute Supervision of normal first acute Abnormal glucose affecting acute Anemia during acut e GBS (group B Streptococcus c arrier), +RV culture, currently acute acute Supervision of normal first acute Abnormal glucose affecting acute Anemia during acut e Encounter for induction of labor acute GBS (group B Streptococcus c arrier), +RV culture, currently acute acute Supervision of normal first acute (spontaneous vaginal delivery) acute [facility] Work Phone: Evaluation note* Diagnosis Onset Date Resolution Status care and examination noneactive [facility] Work Phone: Progress note Author Manjula Goldman [facility] Note Date/Time February 19, 2025 11:44 am [facility] [address], [address] [place] [id number] OFFICE VISIT Date of Service: 02/19/25 MR#: [id number] Acct: [id number] Name: JIMMY ATWOOD Rep #: [id number] : 1995 Provider: QUITA Goldman Age/Sex: 29/F [place] [facility] [place] Status: Signed with Addenda ADDENDUM by Tessa Hearn on 02/19/25 at 1154 Office Procedure Documentation entered by Tessa Hearn 02/19/25 11:54: Immunizations Boostrix Tdap 2.5 Lf unit-8 mcg-5 Lf/0.5 mL intramuscular syringe Performing Provider: Manjula Goldman CNM Performing Location: [facility] Administered by: Tessa Hearn on 02/19/25 11:52 Dose Route Admin Location Dispensed Lot Number Expiration Date NDC Senior Genetic Counselor 0.5 mL IM Right Deltoid 0.5 mL [id number] 10/19/26 [id number] [employer] VIS Given Date VIS Provided VIS Publication Date 02/19/25 Single Vaccine 24 Eligibility Eligibility Date Funding Source Not Applicable Date _ cc: ~* Signed Intake Vital Signs 01/01/25 11:30 01/29/25 15:15 02/19/25 11:31 02/19/25 11:35 Height 5 ft 7 in 5 ft 7 in 5 ft 7 in 5 ft 7 in Weight: 178 lb BMI 27.8 BP 111/71 Intake Visit Reasons: 28 wk ob Senior It Recruiter Required: No Is patient in pain?: No Allergies Penicillins Allergy (Intermediate, Verified 02/19/25 11:30) Rash amoxicillin (From Augmentin) Adverse Reaction (Intermediate, Verified 02/19/25 11:30) Rash clavulanic acid (From Augmentin) Adverse Reaction (Intermediate, Verified 02/19/25 11:30) Rash sulfamethoxazole (From Bactrim) Adverse Reaction (Intermediate, Verified 02/19/25 11:30) Rash terbinafine (From Lamisil) Adverse Reaction (Intermediate, Verified 02/19/25 11:30) Rash trimethoprim (From Bactrim) Adverse Reaction (Intermediate, Verified 02/19/25 11:30) Rash Last Menstrual Period: 08/03/24 : No PFSH PFSH Medical History GBS (group B 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), +RV culture, currently Surgical History Hx of tonsillectomy Family History Father Heart disease Social History adopted: No household members: spouse and children housing: house number of children: 1 current occupational status: employed 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 occupational exposures/hazards: No pets and animals: Yes (2) pets and animals: dog(s) history of recent travel: No sexually active: Yes Smoking Status: Never smoker alcohol intake: current alcohol intake frequency: holidays/special occasions only details: Not while substance use type: does not use well-balanced diet: daily or most days caffeine: Yes Type: coffee Number of servings: 1 eating out: rarely or never during the past year weight has: remained stable what type of physical activity do you participate in: walking frequency: 3-4 times per week duration: 15-30 minutes/day [place]/temple: Religious seatbelt use: always do you feel safe at home: Yes 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 Date Name GA/Weeks Outcome Route Bth Weight Infant Gen Labor Lgth Anesthesia Del Locatn Provider FOB 01/23/23 Cm 41 live - full term 9#1oz Male epid ural [facility] Payal [facility] HPI 28 wk ob Details: JIMMY ATWOOD is a 29 year old who presents for routine OB visit. OB Visit PARAG Calculator Estimated Delivery Date Method Current WG Current Estimate 05/14/25 Ultrasound #1 28w 0d Other Estimates 05/10/25 LMP (Certain) 28w 4d Expected Delivery Route/Plan Labor Preferences- CB/BF classes: [] labor support person: [] labor intervention preferences: [] pain management options preferred: [] cut cord/dad catch: [] : [] PP control planned: [] discussed possible routes of delivery and associated risks: [] special requests: [] Specific Issue/Plans Covid status: [] Flu vaccine: [] Tdap vaccine: [] Rhogam: [] LARC form signed: [] Problem list reviewed and updated with the most current plan of care details and appropriate orders placed. Relevant counseling for the gestational age provided. Continue routine care and follow up unless otherwise noted in visit notes/problem list details Initial Weight: 152 lb Date -?-?-?-?-?-?-?-?-?-?-?-?- EGA Weight BP Urine Prot -?-?-?-?-?-?-?-?-?-?-?-?- Glucose FHR FuHt Pres Dilation -?-?-?-?-?-?-?-?-?-?-?-?- Effaced St Visit Note 10/04/24 -?--?-?-?-?-?-?-?-?-?-?-?- 8w 2d 152 lb 6 oz (+6 oz) 124/82 -?-?-?-?-?-?-?-?-?-?-?-?- 171 -?-?-?-?-?-?-?-?-?-?-?-?- KW- CRL cons wit h dates. Declines NIPT. would like some appts in [facility]. 11/01/24 -?-?-?-?-?-?-?-?-?-?-?-?- 12w 2d 150 lb 8 oz (-1 lb 8 oz) 114/75 Negative -?-?-?-?-?-?-?-?-?-?-?-?- Negative 164 -?-?-?-?-?-?-?-?-?-?-?-?- JV- no complaint s today. has a thyroid cyst that is visible and biopsy with Dr. Suazo on 11/26/24 . 11/27/24 -?-?-?-?-?-?-?-?-?-?-?-?- 16w 0d 158 lb 2 oz (+6 lb 2 oz) 101/67 Negative -?-?-?-?-?-?-?-?-?-?-?-?- Negative 150 -?-?-?-?-?-?-?-?-?-?-?-?- KW- no vb/crampi ng. good fm. US scheduled. 01/01/25 -?-?-?-?-?-?-?-?-?-?-?-?- 21w 0d 167 lb 8 oz (+15 lb 8 oz) 113/71 Negative -?-?-?-?-?-?-?-?-?-?-?-?- Negative 160 -?-?-?-?-?-?-?-?-?-?-?-?- KW- no vb/lof/ct x. good fm. thyroid nodule is benign but will need taken out after . TSH with next blood draw. KW- no vb/lof/ctx. good fm. thyroid nodule is benign but will need taken out after . TSH with next blood draw. glucose next visit 01/29/25 -?-?-?-?-?-?-?-?-?-?-?-?- 25w 0d 174 lb (+22 lb) 118/69 Negative -?-?-?-?-?-?-?-?-?-?-?-?- Negative 156 -?-?-?-?-?-?-?-?-?-?-?-?- JV- patient want s to know if fails 1 hr if can just do glucose testing. understands risks. 02/19/25 -?-?-?-?-?-?-?-?-?-?-?-?- 28w 0d 178 lb (+26 lb) 111/71 Negative -?-?-?-?-?-?-?-?-?-?-?-?- Negative 145 29 -?-?-?-?-?-?-?-?-?-?-?-?- KW- no vb/lof/ct x. good fm. Tdap today. ACOG First Trimester First Trimester: Desire for , Alcohol, Tobacco Cessation, Illicit/Recreational Drug/Substance Use, Intimate Partner Violence, Barriers to care, Unstable Housing, Communication Barriers, Environmental/Work Hazards, Anticipated Course of Care, Toxoplasmosis Precations, Use of Any medications, Sexual activity, Exercise, Dental Care, Sauna/Hot tub use, Seat Belt use, Childbirth classes/Hospital facilities, Travel, Indications for Ultrasound and Screening for Aneuploidy; Discussed Second Trimester Second Trimester: Signs and Symptoms of Labor, Selecting a care provider, Reproductive Life Planning & Contreception, Care Planning, Depression/Anxiety and Intimate Partner Violence; Discussed Tobacco Cessation Third Trimester Third Trimester: Pain Management Plans, Labor support person(s), Immediate Larc, Circumcision preference, Movement Monitoring, Signs and Symptoms of Preeclampsia, Labor Signs, Infant Feeding No , Education and Family Medical Leave or Disability Forms ROS Const Reports system reviewed and no additional complaints, except as documented Eyes Reports system reviewed and no additional complaints, except as documented ENT Reports system reviewed and no additional complaints, except as documented Card Reports system reviewed and no additional complaints, except as documented Resp Reports system reviewed and no additional complaints, except as documented GI Reports system reviewed and no additional complaints, except as documented, Denies nausea and Denies vomiting Reports system reviewed and no additional complaints, except as documented Musc Reports system reviewed and no additional complaints, except as documented Skin/Breast Reports system reviewed and no additional complaints, except as documented Neuro Yes system reviewed and no additional complaints, except as documented Psych Reports system reviewed and no additional complaints, except as documented Endo Reports system reviewed and no additional complaints, except as documented Kuldeep/Lymph Reports system reviewed and no additional complaints, except as documented Aller/Immun Reports system reviewed and no additional complaints, except as documented Exam Const General: cooperative, healthy appearing and no acute distress Orientation: alert, awake and oriented x3 Neck Neck: normal visual inspection and full ROM Resp Effort & Inspection: normal respiratory effort, able to speak in complete sentences and symmetric chest movement GI Inspection: normal to inspection Palpation: soft and other Other: gravid Skin General: no rashes or lesions noted Neuro General: patient alert, patient awake and patient oriented x3 Cognition: normal cognition Speech: speech normal Gait: normal gait Motor: muscle tone normal throughout Extrem General: normal to inspection and full ROM Psych Appearance: grossly normal Mental Status: mental status grossly normal Mood: congruent mood Affect: normal affect Speech and Movement: speech and movement normal Attitude: cooperative Thought Process: normal Thought Content: normal Judgment: judgment good Results POC Urinalysis 2 Dip (Clinic) Office Urine Glucose Negative Last Edit by Tessa Hearn on 02/19/25 11:36 Office Urine Protein Negative Last Edit by Tessa Hearn on 02/19/25 11:36 Coding Level of Care Code OB Routine Diagnoses Screening for lead exposure Z13.88 Thyroid nodule E04.1 Thyroid cyst E04.1 Nausea and vomiting during O21.9 Supervision of normal Z34.90 28 weeks gestation of Z3A.28 Weeks of gestation: 28 weeks Assessment and Plan Assessment and Plan (1) Screening for lead exposure: Status: Acute (2) Thyroid nodule: Status: Acute Comment: Patient is a 29-year-old female with incidentally noted right thyroid nodule that was first noted by her mother through casual observation. It was suspected this nodule was related to a prior viral illness but patient confirms that it was never very tender. Formal thyroid ultrasound was completed and radiology has rated this a TI-RADS 3 lesion. Patient does not appear to have any symptoms from a compressive standpoint. We discussed her thyroid ultrasound in detail using hand drawing schematic to illustrate the location as well as introduce the topic of the TI- RADS grading system. It should be noted that patient's thyroid nodule was rated a TI- RADS 3, however, it could technically be reclassified as a TI-RADS 2 given that it truly has a mixed composition (an otherwise isoechoic) with a substantial cystic component. Yet, because there could have been a consideration to describe this as mostly solid I extended the recommendation for biopsy to Mrs. Atwood after providing a description of the procedure. She was readily receptive and the procedure was undertaken in uncomplicated fashion during today's visit. Complete details are given in the procedures section of today's note. (3) Thyroid cyst: Status: Acute (4) Nausea and vomiting during : Status: Acute (5) Supervision of normal : Status: Acute Comment: PRR,, PARAG 05/10/25, THU Pabon, Sudheer (6) : Status: Acute Qualifiers: Weeks of gestation: 28 weeks Qualified Code(s): Z3A.28 - 28 weeks gestation of Comment: declines NIPT & Carrier testing Orders: Orders POC Urinalysis 2 Dip (Clinic) Today Tdap Immunization Today Z23 - Encounter for immunization Medications: New Boostrix Tdap (diphth,pertus(acell),tetanus) 0.5 mL IM ONCE 1 mL 0RF NS Z23 - Encounter for immunization Plan Details Additional Comments: ACOG trimester education reviewed and updated. see problem list details for updated plan management information and see below for orders placed at this visit. GA appropriate handout given. 02/19/25 1144 <Electronically signed by Manjula waters CNM> Date _ Manjula Goldman CNM Cosigner Signature: Date (if applicable) CC: ~ [facility] Work Phone: Progress note Author Manjula Goldman [facility] Note Date/Time March 19, 2025 12:5 4pm [facility] [address] [place] [address], [address] [place] [address] OFFICE VISIT Date of Service: 03/19/25 MR#: [id number] Acct: [id number] Name: JIMMY ATWOOD Rep #: [id number] : 1995 Provider: QUITA Goldman Age/Sex: 29/F [place] [facility] [place] Status: Signed Intake Vital Signs 01/29/25 15:15 03/07/25 16:14 03/19/25 12:49 03/19/25 12:51 Height 5 ft 7 in 5 ft 7 in 5 ft 7 in 5 ft 7 in Weight: 183 lb BMI 28.6 BP 104/67 Intake Visit Reasons: 32 wk ob Allergies Penicillins Allergy (Intermediate, Verified 03/19/25 12:49) Rash amoxicillin (From Augmentin) Adverse Reaction (Intermediate, Verified 03/19/25 12:49) Rash clavulanic acid (From Augmentin) Adverse Reaction (Intermediate, Verified 03/19/25 12:49) Rash sulfamethoxazole (From Bactrim) Adverse Reaction (Intermediate, Verified 03/19/25 12:49) Rash terbinafine (From Lamisil) Adverse Reaction (Intermediate, Verified 03/19/25 12:49) Rash trimethoprim (From Bactrim) Adverse Reaction (Intermediate, Verified 03/19/25 12:49) Rash Medications ?Medication ?Instructions ?Recorded ?Confirmed ?Type mv-mn 110-FA 180 mcg-om3 35 mg-dha 1 tab PO DAILY Chec k with primary 06/01/22 03/19/25 History 25 mg-epa 5 mg-fish oil chew tablet doctor ondansetron HCl 4 mg tablet 4 mg PO Q6-8H PRN nausea a nd 10/04/24 03/19/25 Rx vomiting #30 tabs Last Menstrual Period: 08/03/24 : No PFSH PFSH Medical History GBS (group B 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), +RV culture, currently Surgical History Hx of tonsillectomy Family History Father Heart disease Social History adopted: No household members: spouse and children housing: house number of children: 1 current occupational status: employed 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 occupational exposures/hazards: No pets and animals: Yes (2) pets and animals: dog(s) history of recent travel: No sexually active: Yes Smoking Status: Never smoker alcohol intake: current alcohol intake frequency: holidays/special occasions only details: Not while substance use type: does not use well-balanced diet: daily or most days caffeine: Yes Type: coffee Number of servings: 1 eating out: rarely or never during the past year weight has: remained stable what type of physical activity do you participate in: walking frequency: 3-4 times per week duration: 15-30 minutes/day [place]/temple: Religious seatbelt use: always do you feel safe at home: Yes 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 Date Name GA/Weeks Outcome Route Bth Weight Infant Gen Labor Lgth Anesthesia Del Ayushatn Provider FOB 01/23/23 Cm 41 live - full term 9#1oz Male epid ural [facility] Payal [facility] HPI 32 wk ob Details: JIMMY ATWOOD is a 29 year old who presents for routine OB visit. OB Visit PARAG Calculator Estimated Delivery Date Method Current WG Current Estimate 05/14/25 Ultrasound #1 32w 0d Other Estimates 05/10/25 LMP (Certain) 32w 4d Expected Delivery Route/Plan Labor Preferences- CB/BF classes: [] labor support person: [] labor intervention preferences: [] pain management options preferred: [] cut cord/dad catch: [] : [] PP control planned: [] discussed possible routes of delivery and associated risks: [] special requests: [] Specific Issue/Plans Covid status: [] Flu vaccine: [] Tdap vaccine: [] Rhogam: [] LARC form signed: [] Problem list reviewed and updated with the most current plan of care details and appropriate orders placed. Relevant counseling for the gestational age provided. Continue routine care and follow up unless otherwise noted in visit notes/problem list details Initial Weight: 152 lb Date -?-?-?-?-?-?-?-?-?-?-?-?- EGA Weight BP Urine Prot -?-?-?-?-?-?-?-?-?-?-?-?- Glucose FHR FuHt Pres Dilation -?-?-?-?-?-?-?-?-?-?-?-?- Effaced St Visit Note 10/04/24 -?-?-?-?-?-?-?-?-?-?-?-?- 8w 2d 152 lb 6 oz (+6 oz) 124/82 -?-?-?-?-?-?-?-?-?-?-?-?- 171 -?-?-?-?-?-?-?-?-?-?-?-?- KW- CRL cons wit h dates. Declines NIPT. would like some appts in [facility]. 11/01/24 -?-?-?-?-?-?-?-?-?-?-?-?- 12w 2d 150 lb 8 oz (-1 lb 8 oz) 114/75 Negative -?-?-?-?-?-?-?-?-?-?-?-?- Negative 164 -?-?-?-?-?-?-?-?-?-?-?-?- JV- no complaint s today. has a thyroid cyst that is visible and biopsy with Dr. Suazo on 11/26/24 . 11/27/24 -?-?-?-?-?-?-?-?-?-?-?-?- 16w 0d 158 lb 2 oz (+6 lb 2 oz) 101/67 Negative -?-?-?-?-?-?-?-?-?-?-?-?- Negative 150 -?-?-?-?-?-?-?-?-?-?-?-?- KW- no vb/crampi ng. good fm. US scheduled. 01/01/25 -?-?-?-?-?-?-?-?-?-?-?-?- 21w 0d 167 lb 8 oz (+15 lb 8 oz) 113/71 Negative -?-?-?-?-?-?-?-?-?-?-?-?- Negative 160 -?-?-?-?-?-?-?-?-?-?-?-?- KW- no vb/lof/ct x. good fm. thyroid nodule is benign but will need taken out after . TSH with next blood draw. KW- no vb/lof/ctx. good fm. thyroid nodule is benign but will need taken out after . TSH with next blood draw. glucose next visit 01/29/25 -?-?-?-?-?-?-?-?-?-?-?-?- 25w 0d 174 lb (+22 lb) 118/69 Negative -?-?-?-?-?-?-?-?-?-?-?-?- Negative 156 -?-?-?-?-?-?-?-?-?-?-?-?- JV- patient want s to know if fails 1 hr if can just do glucose testing. understands risks. 02/19/25 -?-?-?-?-?-?-?-?-?-?-?-?- 28w 0d 178 lb (+26 lb) 111/71 Negative -?-?-?-?-?-?-?-?-?-?-?-?- Negative 145 29 -?-?-?-?-?-?-?-?-?-?-?-?- KW- no vb/lof/ct x. good fm. Tdap today. 03/07/25 -?-?-?-?-?-?-?-?-?-?-?-?- 30w 2d 182 lb 2 oz (+30 lb 2 oz) 115/73 Negative -?-?-?-?-?-?-?-?-?--?-?-?- Negative 145 31 -?-?-?-?-?-?-?-?-?-?-?-?- Sm- no vb lof go od fm no reuglar ctx larc signed 03/19/25 -?-?-?-?-?-?-?-?-?-?-?-?- 32w 0d 183 lb (+31 lb) 104/67 Trace -?-?-?-?-?-?-?-?-?-?-?-?- Negative 150 33 -?-?-?-?-?-?-?-?-?-?-?-?- KW- no vb/lof/ct x. good fm. no concerns today ACOG First Trimester First Trimester: Desire for , Alcohol, Tobacco Cessation, Illicit/Recreational Drug/Substance Use, Intimate Partner Violence, Barriers to care, Unstable Housing, Communication Barriers, Environmental/Work Hazards, Anticipated Course of Care, Toxoplasmosis Precations, Use of Any medications, Sexual activity, Exercise, Dental Care, Sauna/Hot tub use, Seat Belt use, Childbirth classes/Hospital facilities, Travel, Indications for Ultrasound and Screening for Aneuploidy; Discussed Second Trimester Second Trimester: Signs and Symptoms of Labor, Selecting a care provider, Reproductive Life Planning & Contreception, Care Planning, Depression/Anxiety and Intimate Partner Violence; Discussed Tobacco Cessation Third Trimester Third Trimester: Pain Management Plans, Labor support person(s), Immediate Larc, Circumcision preference, Movement Monitoring, Signs and Symptoms of Preeclampsia, Labor Signs, Infant Feeding No , Education and Family Medical Leave or Disability Forms ROS Const Reports system reviewed and no additional complaints, except as documented Eyes Reports system reviewed and no additional complaints, except as documented ENT Reports system reviewed and no additional complaints, except as documented Card Reports system reviewed and no additional complaints, except as documented Resp Reports system reviewed and no additional complaints, except as documented GI Reports system reviewed and no additional complaints, except as documented, Denies nausea and Denies vomiting Reports system reviewed and no additional complaints, except as documented Musc Reports system reviewed and no additional complaints, except as documented Skin/Breast Reports system reviewed and no additional complaints, except as documented Neuro Yes system reviewed and no additional complaints, except as documented Psych Reports system reviewed and no additional complaints, except as documented Endo Reports system reviewed and no additional complaints, except as documented Kuldeep/Lymph Reports system reviewed and no additional complaints, except as documented Aller/Immun Reports system reviewed and no additional complaints, except as documented Exam Const General: cooperative, healthy appearing and no acute distress Orientation: alert, awake and oriented x3 Neck Neck: normal visual inspection and full ROM Resp Effort & Inspection: normal respiratory effort, able to speak in complete sentences and symmetric chest movement GI Inspection: normal to inspection Palpation: soft and other Other: gravid Skin General: no rashes or lesions noted Neuro General: patient alert, patient awake and patient oriented x3 Cognition: normal cognition Speech: speech normal Gait: normal gait Motor: muscle tone normal throughout Extrem General: normal to inspection and full ROM Psych Appearance: grossly normal Mental Status: mental status grossly normal Mood: congruent mood Affect: normal affect Speech and Movement: speech and movement normal Attitude: cooperative Thought Process: normal Thought Content: normal Judgment: judgment good Results POC Urinalysis 2 Dip (Clinic) Office Urine Glucose Negative Last Edit by Tessa Hearn on 03/19/25 12:52 Office Urine Protein Trace Last Edit by Tessa Hearn on 03/19/25 12:52 Coding Level of Care Code OB Routine Diagnoses Thyroid nodule E04.1 Thyroid cyst E04.1 Nausea and vomiting during O21.9 Supervision of normal Z34.90 32 weeks gestation of Z3A.32 Weeks of gestation: 32 weeks Assessment and Plan Assessment and Plan (1) Thyroid nodule: Status: Acute Comment: Patient is a 29-year-old female with incidentally noted right thyroid nodule that was first noted by her mother through casual observation. It was suspected this nodule was related to a prior viral illness but patient confirms that it was never very tender. Formal thyroid ultrasound was completed and radiology has rated this a TI-RADS 3 lesion. Patient does not appear to have any symptoms from a compressive standpoint. We discussed her thyroid ultrasound in detail using hand drawing schematic to illustrate the location as well as introduce the topic of the TI- RADS grading system. It should be noted that patient's thyroid nodule was rated a TI- RADS 3, however, it could technically be reclassified as a TI-RADS 2 given that it truly has a mixed composition (an otherwise isoechoic) with a substantial cystic component. Yet, because there could have been a consideration to describe this as mostly solid I extended the recommendation for biopsy to Mrs. Atwood after providing a description of the procedure. She was readily receptive and the procedure was undertaken in uncomplicated fashion during today's visit. Complete details are given in the procedures section of today's note. (2) Thyroid cyst: Status: Acute (3) Nausea and vomiting during : Status: Acute (4) Supervision of normal : Status: Acute Comment: PRR,, PARAG 05/10/25, girl THU Pabon, Sudheer (5) : Status: Acute Qualifiers: Weeks of gestation: 32 weeks Qualified Code(s): Z3A.32 - 32 weeks gestation of Comment: declines NIPT & Carrier testing Plan Details Additional Comments: ACOG trimester education reviewed and updated. see problem list details for updated plan management information and see below for orders placed at this visit. GA appropriate handout given. 03/19/25 [id number] <Electronically signed by Manjula waters CNM> Date _ Manjula Goldman CNM Cosigner Signature: Date (if applicable) CC: ~ [facility] Work Phone: Reason for referral (narrative)No reason for referral information [facility] Work Phone: Summary Purpose Family History No Family History Records Found Relationship Condition Age at Onset Recorded Date/T arianna father Cardiac disease Unknown Advance Directives No Advanced Directives Records Found Advance Directive Response Recorded Date/ Time Living Will No January 23, 2023 7 :45am Power of Chef Teacher No January 23, 2023 7:45am Advance Directive Response Recorded Date/ Time Living Will No January 23, 2023 6 :45am Power of Chef Teacher No January 23, 2023 6:45am Chief Complaint and Reason for Visit Chief Complaint SORE THROAT/COUGH NOB LMP 8/20 Reason for Visit Acute pharyngitis Contact with or suspected exposure to other viral communicable disease Supervision of normal first Chief Complaint SORE THROAT/COUGH NOB LMP 8 12wk ob EORDER Reason for Visit Acute pharyngitis Contact with or suspected exposure to other viral communicable disease Supervision of normal first Hyperbilirubinemia Supervision of normal first Chief Complaint 16 WK OB 21 WK OB 25 WK OB 28 WK OB / GLUCOSE SCREEN FOR GESTATIONAL DM Reason for Visit Supervision of normal first Hyperbilirubinemia Supervision of normal first Supervision of normal first Abnormal glucose affecting Anemia during Supervision of normal first Chief Complaint 16 WK OB 21 WK OB 25 WK OB 28 WK OB / GLUCOSE SCREEN FOR GESTATIONAL DM 30 WK OB 32 WK OB Reason for Visit Supervision of normal first Hyperbilirubinemia Supervision of normal first Supervision of normal first Abnormal glucose affecting Anemia during Supervision of normal first Abnormal glucose affecting Anemia during Supervision of normal first Abnormal glucose affecting Anemia during Supervision of normal first Chief Complaint 21 WK OB 25 WK OB 28 WK OB / GLUCOSE SCREEN FOR GESTATIONAL DM 30 WK OB 32 WK OB 34 WK OB 36 WK OB GROWTH Reason for Visit Supervision of normal first Supervision of normal first Abnormal glucose affecting Anemia during Supervision of normal first Abnormal glucose affecting Anemia during Supervision of normal first Abnormal glucose affecting Anemia during Supervision of normal first Abnormal glucose affecting Anemia during Supervision of normal first Abnormal glucose affecting Anemia during Supervision of normal first Chief Complaint 25 WK OB 28 WK OB / GLUCOSE SCREEN FOR GESTATIONAL DM 30 WK OB 32 WK OB 34 WK OB 36 WK OB GROWTH 37 WK OB 38 WK OB 39 WK OB 40 wk ob VAGINAL DELIVERY INDUCTION OF LABOR VAGINAL DELIVERY VAGINAL DELIVERY Reason for Visit Supervision of normal first Abnormal glucose affecting Anemia during Supervision of normal first Abnormal glucose affecting Anemia during Supervision of normal first Abnormal glucose affecting Anemia during Supervision of normal first Abnormal glucose affecting Anemia during Supervision of normal first Abnormal glucose affecting Anemia during Supervision of normal first Abnormal glucose affecting Anemia during GBS (group B 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), +RV culture, currently Supervision of normal first Abnormal glucose affecting Anemia during GBS (group B 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), +RV culture, currently Supervision of normal first Abnormal glucose affecting Anemia during GBS (group B 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), +RV culture, currently Supervision of normal first Abnormal glucose affecting Anemia during GBS (group B 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), +RV culture, currently Supervision of normal first Abnormal glucose affecting Anemia during Encounter for induction of labor GBS (group B 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), +RV culture, currently Supervision of normal first (spontaneous vaginal delivery) Chief Complaint 6 wk Post SKIN Reason for Visit care and examination Chief Complaint Admit Date NOB LMP 08/03October 04, 2024 2:27pm 12 wk OB November 01, 2024 2:1 8pm THYROID NODULE November 26, 2024 2:01 pm FNA THYROID NODULE November 26, 2024 3:10 pm 16wk ob November 27, 2024 12:2 6pm 21 WEEK OB January 01, 2025 11:22 am Reason for Visit Admit Date October 04, 2024 2:27pm Supervision of normal October 04, 2024 2:27pm Nausea and vomiting during Mar 2024 2:18pm November 01, 2024 2:1 8pm Supervision of normal November 012024 2:18pm Thyroid cyst November 01, 2024 2:1 8pm Thyroid nodule November 26, 2024 2:01 pm Nausea and vomiting during Apr 2024 12:26pm November 27, 2024 12:2 6pm Supervision of normal November 12:26pm Thyroid cyst November 27, 2024 12:2 6pm Thyroid nodule November 27, 2024 12:2 6pm Nausea and vomiting during January 01, 2025 11:22am January 01, 2025 11:22 am Supervision of normal December 11:22am Thyroid cyst January 01, 2025 11:22 am Thyroid nodule January 01, 2025 11:22 am Chief Complaint Admit Date NOB LMP 08/03October 04, 2024 2:27pm 12 wk OB November 01, 2024 2:1 8pm THYROID NODULE November 26, 2024 2:01 pm FNA THYROID NODULE November 26, 2024 3:10 pm 16wk ob November 27, 2024 12:2 6pm 21 WEEK OB January 01, 2025 11:22 am 26wk ob/glucose January 29, 2025 3:01 pm Reason for Visit Admit Date October 04, 2024 2:27pm Supervision of normal October 04, 2024 2:27pm Nausea and vomiting during Mar 2024 2:18pm November 01, 2024 2:1 8pm Supervision of normal November 012024 2:18pm Thyroid cyst November 01, 2024 2:1 8pm Thyroid nodule November 26, 2024 2:01 pm Nausea and vomiting during Apr 2024 12:26pm November 27, 2024 12:2 6pm Supervision of normal November 12:26pm Thyroid cyst November 27, 2024 12:2 6pm Thyroid nodule November 27, 2024 12:2 6pm Nausea and vomiting during January 01, 2025 11:22am January 01, 2025 11:22 am Supervision of normal December 11:22am Thyroid cyst January 01, 2025 11:22 am Thyroid nodule January 01, 2025 11:22 am Nausea and vomiting during Andre 2024 3:01pm January 29, 2025 3:01 pm Supervision of normal January 3:01pm Thyroid cyst January 29, 2025 3:01 pm Thyroid nodule January 29, 2025 3:01 pm Chief Complaint Admit Date 12 wk OB November 01, 2024 2:1 8pm THYROID NODULE November 26, 2024 2:01 pm FNA THYROID NODULE November 26, 2024 3:10 pm 16wk ob November 27, 2024 12:2 6pm 21 WEEK OB January 01, 2025 11:22 am 25wk ob/glucose January 29, 2025 3:01 pm Reason for Visit Admit Date Nausea and vomiting during Mar ch 2024 2:18pm November 01, 2024 2:1 8pm Supervision of normal November 012024 2:18pm Thyroid cyst November 01, 2024 2:1 8pm Thyroid nodule November 26, 2024 2:01 pm Nausea and vomiting during Apr il 2024 12:26pm November 27, 2024 12:2 6pm Supervision of normal November 12:26pm Thyroid cyst November 27, 2024 12:2 6pm Thyroid nodule November 27, 2024 12:2 6pm Nausea and vomiting during January 01, 2025 11:22am January 01, 2025 11:22 am Supervision of normal December 11:22am Thyroid cyst January 01, 2025 11:22 am Thyroid nodule January 01, 2025 11:22 am Nausea and vomiting during Andre e 2024 3:01pm January 29, 2025 3:01 pm Supervision of normal January 3:01pm Thyroid cyst January 29, 2025 3:01 pm Thyroid nodule January 29, 2025 3:01 pm Chief Complaint Admit Date 12 wk OB November 01, 2024 2:1 8pm THYROID NODULE November 26, 2024 2:01 pm FNA THYROID NODULE November 26, 2024 3:10 pm 16wk ob November 27, 2024 12:2 6pm WEEK OB January 01, 2025 11:22 am 25wk ob/glucose January 29, 2025 3:01 pm 28 wk ob February 19, 2025 11:26 am Reason for Visit Admit Date Nausea and vomiting during Mar ch 2024 2:18pm November 01, 2024 2:1 8pm Supervision of normal November 012024 2:18pm Thyroid cyst November 01, 2024 2:1 8pm Thyroid nodule November 26, 2024 2:01 pm Nausea and vomiting during Apr 2024 12:26pm November 27, 2024 12:2 6pm Supervision of normal November 12:26pm Thyroid cyst November 27, 2024 12:2 6pm Thyroid nodule November 27, 2024 12:2 6pm Nausea and vomiting during January 01, 2025 11:22am January 01, 2025 11:22 am Supervision of normal December 11:22am Thyroid cyst January 01, 2025 11:22 am Thyroid nodule January 01, 2025 11:22 am Nausea and vomiting during Andre 2024 3:01pm January 29, 2025 3:01 pm Supervision of normal January 3:01pm Thyroid cyst January 29, 2025 3:01 pm Thyroid nodule January 29, 2025 3:01 pm Nausea and vomiting during Feb 11:26am February 19, 2025 11:26 am Screening for lead exposure February 19 11:26am Supervision of normal February 11:26am Thyroid cyst February 19, 2025 11:26 am Thyroid nodule February 19, 2025 11:26 am Chief Complaint Admit Date THYROID NODULE November 26, 2024 2:01 pm FNA THYROID NODULE November 26, 2024 3:10 pm 16wk ob November 27, 2024 12:2 6pm 21 WEEK OB January 01, 2025 11:22 am 25wk ob/glucose January 29, 2025 3:01 pm 28 wk ob February 19, 2025 11:26 am 30 wk ob March 07, 2025 4:05 pm Reason for Visit Admit Date Thyroid nodule November 26, 2024 2:01 pm Nausea and vomiting during Apr 2024 12:26pm November 27, 2024 12:2 6pm Supervision of normal November 12:26pm Thyroid cyst November 27, 2024 12:2 6pm Thyroid nodule November 27, 2024 12:2 6pm Nausea and vomiting during January 01, 2025 11:22am January 01, 2025 11:22 am Supervision of normal December 11:22am Thyroid cyst January 01, 2025 11:22 am Thyroid nodule January 01, 2025 11:22 am Nausea and vomiting during Andre e 2024 3:01pm January 29, 2025 3:01 pm Supervision of normal January 3:01pm Thyroid cyst January 29, 2025 3:01 pm Thyroid nodule January 29, 2025 3:01 pm Nausea and vomiting during Feb 11:26am February 19, 2025 11:26 am Screening for lead exposure February 19 11:26am Supervision of normal February 11:26am Thyroid cyst February 19, 2025 11:26 am Thyroid nodule February 19, 2025 11:26 am Nausea and vomiting during Feb 4:05pm March 07, 2025 4:05 pm Screening for lead exposure March 07, 025 4:05pm Supervision of normal February 4:05pm Thyroid cyst March 07, 2025 4:05 pm Thyroid nodule March 07, 2025 4:05 pm Chief Complaint Admit Date THYROID NODULE November 26, 2024 2:01 pm FNA THYROID NODULE November 26, 2024 3:10 pm 16wk ob November 27, 2024 12:2 6pm 21 WEEK OB January 01, 2025 11:22 am 25wk ob/glucose January 29, 2025 3:01 pm 28 wk ob February 19, 2025 11:26 am 30 wk ob March 07, 2025 4:05 pm 32 wk ob March 19, 2025 12:3 0pm Reason for Visit Admit Date Thyroid nodule November 26, 2024 2:01 pm Nausea and vomiting during Apr il 2024 12:26pm November 27, 2024 12:2 6pm Supervision of normal November 12:26pm Thyroid cyst November 27, 2024 12:2 6pm Thyroid nodule November 27, 2024 12:2 6pm Nausea and vomiting during January 01, 2025 11:22am January 01, 2025 11:22 am Supervision of normal December 11:22am Thyroid cyst January 01, 2025 11:22 am Thyroid nodule January 01, 2025 11:22 am Nausea and vomiting during Andre 2024 3:01pm January 29, 2025 3:01 pm Supervision of normal January 3:01pm Thyroid cyst January 29, 2025 3:01 pm Thyroid nodule January 29, 2025 3:01 pm Nausea and vomiting during Feb 11:26am February 19, 2025 11:26 am Screening for lead exposure February 19 11:26am Supervision of normal February 11:26am Thyroid cyst February 19, 2025 11:26 am Thyroid nodule February 19, 2025 11:26 am Nausea and vomiting during Feb 4:05pm March 07, 2025 4:05 pm Screening for lead exposure March 07 025 4:05pm Supervision of normal February 4:05pm Thyroid cyst March 07, 2025 4:05 pm Thyroid nodule March 07, 2025 4:05 pm Nausea and vomiting during Feb 12:30pm March 19, 2025 12:3 0pm Screening for lead exposure March 19 025 12:30pm Supervision of normal February 12:30pm Thyroid cyst March 19, 2025 12:3 0pm Thyroid nodule March 19, 2025 12:3 0pm Additional Source Comments INFORMATION SOURCE (unrecogn ized section and content) DATE CREATED AUTHOR 07/06/2020 [facility] DATE CREATED AUTHOR AUTHOR'S ORGANIZ ATION 10/12/2024 [facility] DATE CREATED AUTHOR AUTHOR'S ORGANIZ ATION 10/14/2024 [facility] DATE CREATED AUTHOR AUTHOR'S ORGANIZ ATION 10/15/2024 [facility] DATE CREATED AUTHOR AUTHOR'S ORGANIZ ATION 12/18/2024 [facility] DATE CREATED AUTHOR AUTHOR'S ORGANIZ ATION 03/21/2025 [facility] Goals (unrecognized section and content) Goals may be documented in a n alternate sectionGoals may be documented in an alternate sectionGoals may be documented in an alternate sectionGoals may be documented in an alternate sectionGoals may be documented in an alternate sectionGoals may be documented in an alternate sectionGoals may be documented in an alternate sectionGoals may be documented in an alternate sectionGoals may be documented in an alternate sectionGoals may be documented in an alternate sectionGoals may be documented in an alternate sectionGoals may be documented in an alternate sectionGoals may be documented in an alternate section Care Teams (unrecognized sec tion and content) Team Status: Active Member Role Status Dates Yudi Méndez PLANT PHYSIOLOGIST, PLANT PHYSIOLOGIST-C Primary Care Provider Active Team Status: Inactive Member Role Status Dates Yudi Méndez PLANT PHYSIOLOGIST, PLANT PHYSIOLOGIST-C Primary Care Provider, Referring Provider Active Dr. Carline Escobar DO Attending Provider Activ e Team Status: Inactive Member Role Status Dates Yudi Méndez PLANT PHYSIOLOGIST, PLANT PHYSIOLOGIST-C Primary Care Provider, Referring Provider Active Tania Gutiérrez PLANT PHYSIOLOGIST, PLANT PHYSIOLOGIST-C Attending Provider Active Team Status: Inactive Member Role Status Dates Yudi Méndez PLANT PHYSIOLOGIST, PLANT PHYSIOLOGIST-C Primary Care Provider, Referring Provider Active Dr. Nelly Gay MD Attending Provider Active Team Status: Inactive Member Role Status Dates Yudi Méndez PLANT PHYSIOLOGIST, PLANT PHYSIOLOGIST-C Primary Care Provider Active Dr. Nelly Gay MD Attending Provider, Referr ing Provider Active Team Status: Active Member Role Status Dates Yudi Méndez PLANT PHYSIOLOGIST, PLANT PHYSIOLOGIST-C Primary Care Provider Active Tania Gutiérrez PLANT PHYSIOLOGIST, PLANT PHYSIOLOGIST-C Attending Provider, Referring Provider Active Team Status: Inactive Member Role Status Dates Yudi Méndez PLANT PHYSIOLOGIST, PLANT PHYSIOLOGIST-C Primary Care Provider Active Tania Gutiérrez PLANT PHYSIOLOGIST, PLANT PHYSIOLOGIST-C Attending Provider, Referring Provider Active Team Status: Inactive Member Role Status Dates Yudi Méndez PLANT PHYSIOLOGIST, PLANT PHYSIOLOGIST-C Primary Care Provider, Referring Provider Active Manjula Goldman CNM Attending Provider Active Team Status: Inactive Member Role Status Dates Yudi Méndez NP, PLANT PHYSIOLOGIST-C Primary Care Provider Active Manjula Goldman CNM Attending Provider, Referring Pro vider Active Dr. Carline Escobar DO Other Provider Active Team Status: Active Member Role Status Dates Yudi Méndez NP, PLANT PHYSIOLOGIST-C Primary Care Provider Active Dr. Nelly Gay MD Admit Provider, Other Prov ider Active Payal Hutchins CNM Attending Provider Active Team Status: Active Member Role Status Dates Yudi Méndez NP, PLANT PHYSIOLOGIST-C Primary Care Provider Active Payal Hutchins CNM Admit Provider, Other Provider A ctive Manjula Goldman CNM Attending Provider Active Team Status: Inactive Member Role Status Dates Yudi Méndez PLANT PHYSIOLOGIST, PLANT PHYSIOLOGIST-C Primary Care Provider Active Payal Hutchins CNM Admit Provider, Attending Provid er Active Team Status: Inactive Member Role Status Dates Yudi Méndez PLANT PHYSIOLOGIST, PLANT PHYSIOLOGIST-C Primary Care Provider Active Dr. Roxann Michaels MD Attending Provider, Referring Pro vider Active Team Status: Inactive Member Role Status Dates Yudi Méndez PLANT PHYSIOLOGIST, PLANT PHYSIOLOGIST-C Primary Care Provider Active Start: October 04, 2024 End: October 04, 2024 Yudi Méndez PLANT PHYSIOLOGIST, PLANT PHYSIOLOGIST-C Referring Provider Active S tart: October 04, 2024 End: October 04, 2024 Manjula Goldman CNM Attending Provider Active S tart: October 04, 2024 End: October 04, 2024 Team Status: Inactive Member Role Status Dates Yudi Méndez PLANT PHYSIOLOGIST, PLANT PHYSIOLOGIST-C Primary Care Provider Active Start: October 04, 2024 End: October 04, 2024 Manjula Goldman CNM Attending Provider Active S tart: October 04, 2024 End: October 04, 2024 Manjula Goldman CNM Referring Provider Active S tart: October 04, 2024 End: October 04, 2024 Team Status: Inactive Member Role Status Dates Yudi Méndez PLANT PHYSIOLOGIST, PLANT PHYSIOLOGIST-C Primary Care Provider Active Start: November 01, 2024 End: November 01, 2024 Yudi Méndez PLANT PHYSIOLOGIST, PLANT PHYSIOLOGIST-C Referring Provider Active S tart: November 01, 2024 End: November 01, 2024 Dr. Carline Escobar DO Attending Provider Activ e Start: November 01, 2024 End: November 01, 2024 Team Status: Inactive Member Role Status Dates Yudi Méndez PLANT PHYSIOLOGIST, PLANT PHYSIOLOGIST-C Primary Care Provider Active Start: November 26, 2024 End: November 26, 2024 Yudi Méndez PLANT PHYSIOLOGIST, PLANT PHYSIOLOGIST-C Referring Provider Active S tart: November 26, 2024 End: November 26, 2024 Dr. Ravinder Suazo MD Attending Provider Active Start: November 26, 2024 End: November 26, 2024 Team Status: Inactive Member Role Status Dates Yudi Méndez PLANT PHYSIOLOGIST, PLANT PHYSIOLOGIST-C Primary Care Provider Active Start: November 26, 2024 End: November 26, 2024 Dr. Ravinder Suazo MD Attending Provider Active Start: November 26, 2024 End: November 26, 2024 Dr. Ravinder Suazo MD Referring Provider Active Start: November 26, 2024 End: November 26, 2024 Team Status: Inactive Member Role Status Dates Yudi Méndez PLANT PHYSIOLOGIST, PLANT PHYSIOLOGIST-C Primary Care Provider Active Start: November 27, 2024 End: November 27, 2024 Yudi Méndez PLANT PHYSIOLOGIST, PLANT PHYSIOLOGIST-C Referring Provider Active S tart: November 27, 2024 End: November 27, 2024 Manjula Goldman CNM Attending Provider Active S tart: November 27, 2024 End: November 27, 2024 Team Status: Inactive Member Role Status Dates Yudi Méndez PLANT PHYSIOLOGIST, PLANT PHYSIOLOGIST-C Primary Care Provider Active Start: January 01, 2025 End: January 01, 2025 Yudi Méndez PLANT PHYSIOLOGIST, PLANT PHYSIOLOGIST-C Referring Provider Active S tart: January 01, 2025 End: January 01, 2025 Manjula Goldman CNM Attending Provider Active S tart: January 01, 2025 End: January 01, 2025 Team Status: Inactive Member Role Status Dates Yudi Méndez PLANT PHYSIOLOGIST, PLANT PHYSIOLOGIST-C Primary Care Provider Active Start: January 29, 2025 End: January 29, 2025 Yudi Méndez PLANT PHYSIOLOGIST, PLANT PHYSIOLOGIST-C Referring Provider Active S tart: January 29, 2025 End: January 29, 2025 Dr. Carline Escobar DO Attending Provider Activ e Start: January 29, 2025 End: January 29, 2025 Team Status: Active Member Role Status Dates Yudi Méndez PLANT PHYSIOLOGIST, PLANT PHYSIOLOGIST-C Primary Care Provider Active Start: January 29, 2025 Dr. Nelly Gay MD Attending Provider Active Start: January 29, 2025 Dr. Nelly Gay MD Referring Provider Active Start: January 29, 2025 Team Status: Inactive Member Role Status Dates Yudi Méndez PLANT PHYSIOLOGIST, PLANT PHYSIOLOGIST-C Primary Care Provider Active Start: January 29, 2025 End: January 29, 2025 Dr. Nelly Gay MD Attending Provider Active Start: January 29, 2025 End: January 29, 2025 Dr. Nelly Gay MD Referring Provider Active Start: January 29, 2025 End: January 29, 2025 Team Status: Active Member Role/Relationship Status Dates Yudi Méndez PLANT PHYSIOLOGIST, PLANT PHYSIOLOGIST-C Primary Care Provider Active Team Status: Inactive Member Role/Relationship Status Dates Yudi Méndez PLANT PHYSIOLOGIST, PLANT PHYSIOLOGIST-C Primary Care Provider Active Start: November 01, 2024 End: November 01, 2024 Yudi Méndez PLANT PHYSIOLOGIST, PLANT PHYSIOLOGIST-C Referring Provider Active S tart: November 01, 2024 End: November 01, 2024 Dr. Carline Escobar DO Attending Provider Activ e Start: November 01, 2024 End: November 01, 2024 Team Status: Inactive Member Role/Relationship Status Dates Yudi Méndez PLANT PHYSIOLOGIST, PLANT PHYSIOLOGIST-C Primary Care Provider Active Start: November 26, 2024 End: November 26, 2024 Yudi Méndez PLANT PHYSIOLOGIST, PLANT PHYSIOLOGIST-C Referring Provider Active S tart: November 26, 2024 End: November 26, 2024 Dr. Ravinder Suazo MD Attending Provider Active Start: November 26, 2024 End: November 26, 2024 Team Status: Inactive Member Role/Relationship Status Dates Yudi Méndez PLANT PHYSIOLOGIST, PLANT PHYSIOLOGIST-C Primary Care Provider Active Start: November 26, 2024 End: November 26, 2024 Dr. Ravinder Suazo MD Attending Provider Active Start: November 26, 2024 End: November 26, 2024 Dr. Ravinder Suazo MD Referring Provider Active Start: November 26, 2024 End: November 26, 2024 Team Status: Inactive Member Role/Relationship Status Dates Yudi Méndez PLANT PHYSIOLOGIST, PLANT PHYSIOLOGIST-C Primary Care Provider Active Start: November 27, 2024 End: November 27, 2024 Yudi Méndez PLANT PHYSIOLOGIST, PLANT PHYSIOLOGIST-C Referring Provider Active S tart: November 27, 2024 End: November 27, 2024 Manjula Goldman CNM Attending Provider Active S tart: November 27, 2024 End: November 27, 2024 Team Status: Inactive Member Role/Relationship Status Dates Yudi Méndez PLANT PHYSIOLOGIST, PLANT PHYSIOLOGIST-C Primary Care Provider Active Start: January 01, 2025 End: January 01, 2025 Yudi Méndez PLANT PHYSIOLOGIST, PLANT PHYSIOLOGIST-C Referring Provider Active S tart: January 01, 2025 End: January 01, 2025 Manjula Goldman CNM Attending Provider Active S tart: January 01, 2025 End: January 01, 2025 Team Status: Inactive Member Role/Relationship Status Dates Yudi Méndez PLANT PHYSIOLOGIST, PLANT PHYSIOLOGIST-C Primary Care Provider Active Start: January 29, 2025 End: January 29, 2025 Yudi Méndez PLANT PHYSIOLOGIST, PLANT PHYSIOLOGIST-C Referring Provider Active S tart: January 29, 2025 End: January 29, 2025 Dr. Carline Escobar DO Attending Provider Activ e Start: January 29, 2025 End: January 29, 2025 Team Status: Inactive Member Role/Relationship Status Dates Yudi Méndez PLANT PHYSIOLOGIST, PLANT PHYSIOLOGIST-C Primary Care Provider Active Start: January 29, 2025 End: January 29, 2025 Dr. Nelly Gay MD Attending Provider Active Start: January 29, 2025 End: January 29, 2025 Dr. Nelly Gay MD Referring Provider Active Start: January 29, 2025 End: January 29, 2025 Team Status: Inactive Member Role/Relationship Status Dates Yudi Méndez PLANT PHYSIOLOGIST, PLANT PHYSIOLOGIST-C Primary Care Provider Active Start: February 19, 2025 End: February 19, 2025 Yudi Méndez PLANT PHYSIOLOGIST, PLANT PHYSIOLOGIST-C Referring Provider Active S tart: February 19, 2025 End: February 19, 2025 Manjula Goldman CNM Attending Provider Active S tart: February 19, 2025 End: February 19, 2025 Team Status: Inactive Member Role/Relationship Status Dates Yudi Méndez PLANT PHYSIOLOGIST, PLANT PHYSIOLOGIST-C Primary Care Provider Active Start: November 26, 2024 End: November 26, 2024 Yudi Méndez PLANT PHYSIOLOGIST, PLANT PHYSIOLOGIST-C Referring Provider Active S tart: November 26, 2024 End: November 26, 2024 Dr. Ravinder Suazo MD Attending Provider Active Start: November 26, 2024 End: November 26, 2024 Team Status: Inactive Member Role/Relationship Status Dates Yudi Mnédez PLANT PHYSIOLOGIST, PLANT PHYSIOLOGIST-C Primary Care Provider Active Start: November 26, 2024 End: November 26, 2024 Dr. Ravinder Suazo MD Attending Provider Active Start: November 26, 2024 End: November 26, 2024 Dr. Ravinder Suazo MD Referring Provider Active Start: November 26, 2024 End: November 26, 2024 Team Status: Inactive Member Role/Relationship Status Dates Yudi Méndez PLANT PHYSIOLOGIST, PLANT PHYSIOLOGIST-C Primary Care Provider Active Start: November 27, 2024 End: November 27, 2024 Yudi Méndez PLANT PHYSIOLOGIST, PLANT PHYSIOLOGIST-C Referring Provider Active S tart: November 27, 2024 End: November 27, 2024 Manjula Goldman CNM Attending Provider Active S tart: November 27, 2024 End: November 27, 2024 Team Status: Inactive Member Role/Relationship Status Dates Yudi Méndez PLANT PHYSIOLOGIST, PLANT PHYSIOLOGIST-C Primary Care Provider Active Start: January 01, 2025 End: January 01, 2025 Yudi Méndez PLANT PHYSIOLOGIST, PLANT PHYSIOLOGIST-C Referring Provider Active S tart: January 01, 2025 End: January 01, 2025 Manjula Goldman CNM Attending Provider Active S tart: January 01, 2025 End: January 01, 2025 Team Status: Inactive Member Role/Relationship Status Dates Yudi Méndez PLANT PHYSIOLOGIST, PLANT PHYSIOLOGIST-C Primary Care Provider Active Start: January 29, 2025 End: January 29, 2025 Yudi Méndez PLANT PHYSIOLOGIST, PLANT PHYSIOLOGIST-C Referring Provider Active S tart: January 29, 2025 End: January 29, 2025 Dr. Carline Escobar DO Attending Provider Activ e Start: January 29, 2025 End: January 29, 2025 Team Status: Inactive Member Role/Relationship Status Dates Yudi Méndez PLANT PHYSIOLOGIST, PLANT PHYSIOLOGIST-C Primary Care Provider Active Start: January 29, 2025 End: January 29, 2025 Dr. Nelly Gay MD Attending Provider Active Start: January 29, 2025 End: January 29, 2025 Dr. Nelly Gay MD Referring Provider Active Start: January 29, 2025 End: January 29, 2025 Team Status: Inactive Member Role/Relationship Status Dates Yudi Méndez PLANT PHYSIOLOGIST, PLANT PHYSIOLOGIST-C Primary Care Provider Active Start: February 19, 2025 End: February 19, 2025 Yudi Méndez PLANT PHYSIOLOGIST, PLANT PHYSIOLOGIST-C Referring Provider Active S tart: February 19, 2025 End: February 19, 2025 Manjula Goldman CNM Attending Provider Active S tart: February 19, 2025 End: February 19, 2025 Team Status: Inactive Member Role/Relationship Status Dates Yudi Méndez PLANT PHYSIOLOGIST, PLANT PHYSIOLOGIST-C Primary Care Provider Active Start: March 07, 2025 End: March 07, 2025 Yudi Méndez PLANT PHYSIOLOGIST, PLANT PHYSIOLOGIST-C Referring Provider Active S tart: March 07, 2025 End: March 07, 2025 Dr. Nelly Gay MD Attending Provider Active Start: March 07, 2025 End: March 07, 2025 Team Status: Inactive Member Role/Relationship Status Dates Yudi Méndez PLANT PHYSIOLOGIST, PLANT PHYSIOLOGIST-C Primary Care Provider Active Start: March 19, 2025 End: March 19, 2025 Yudi Méndez PLANT PHYSIOLOGIST, PLANT PHYSIOLOGIST-C Referring Provider Active S tart: March 19, 2025 End: March 19, 2025 Manjula Goldman CNM Attending Provider Active S tart: March 19, 2025 End: March 19, 2025 FOR RECORDS PERTAINING TO PATIENTS WHO ARE OR HAVE BEEN ENROLLED IN A CHEMICAL DEPENDENCY/SUBSTANCEABUSE PROGRAM, SOME INFORMATION MAY BE OMITTED. This clinical summary was aggregated from multiple sources. Caution should be exercised in using it in the provision of clinical care. This summary normalizes information from multiple sources, and as a consequence, information in this document may materially change the coding, format and clinical context of patient data. In addition, data may be omitted in some cases. CLINICAL DECISIONS SHOULD BE BASED ON THE PRIMARY CLINICAL RECORDS. [facility] provides no warranty or guarantee of the accuracy or completeness of information in this document.
--- NOTE | 2025-03-23 14:08 | EDS_ITS ---
HPI <BRIAN Suggs - Last Filed: 03/23/25 14:16> History of Present Illness Chief Complaint: Eye Problem Narrative Narrative: 21-year-old female was at a golf outing yesterday and developed discomfort in her left eye with a foreign body sensation. She does not recall anything getting in it and there was no trauma. She has had pain with opening the eye and clear tearing. No purulent drainage. No vision changes. She does not wear glasses or contacts. She reports having corneal abrasion in the same eye in the past. PFSH <BRIAN Suggs - Last Filed: 03/23/25 14:16> [facility] Medical History GBS (group B 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), +RV culture, currently Home Medications ?Medication ?Instructions ?Recorded ?Last Taken ?Type mv-mn 110-FA 180 mcg-om3 35 mg-dha 1 tab PO DAILY Chec k with primary 06/01/22 Unknown History 25 mg-epa 5 mg-fish oil chew tablet doctor ondansetron HCl 4 mg tablet 4 mg PO Q6-8H PRN nausea a nd 10/04/24 Unknown Rx vomiting #30 tabs Allergy/AdvReac Type Severity Reaction Status Date / Time Penicillins Allergy Intermediate Rash Verified 03/23/25 13:00 amoxicillin (From Augmentin) AdvReac Intermediate Rash Verified 03/23/25 13:00 clavulanic acid (From AdvReac Intermediate Rash Verified 03/23/25 13:00 Augmentin) sulfamethoxazole (From AdvReac Intermediate Rash Verified 03/23/25 13:00 Bactrim) terbinafine (From Lamisil) AdvReac Intermediate Rash Verified 03/23/25 13:00 trimethoprim (From Bactrim) AdvReac Intermediate Rash Verified 03/23/25 13:00 Family History Father Heart disease Surgical History Hx of tonsillectomy Social History adopted: No household members: spouse and children housing: house number of children: 1 current occupational status: employed 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 current occupational exposures/hazards: No pets and animals: Yes (2) pets and animals: dog(s) history of recent travel: No sexually active: Yes Smoking Status: Never smoker alcohol intake: current alcohol intake frequency: holidays/special occasions only details: Not while substance use type: does not use well-balanced diet: daily or most days caffeine: Yes Type: coffee Number of servings: 1 eating out: rarely or never during the past year weight has: remained stable what type of physical activity do you participate in: walking frequency: 3-4 times per week duration: 15-30 minutes/day [place]/alevism: Buddhist seatbelt use: always do you feel safe at home: Yes 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 Eyes: Negative for visual change. Neuro: Negative for headache. EXAM <BRIAN Suggs - Last Filed: 03/23/25 14:16> Physical Exam Narrative Exam Narrative: CONST: Patient sitting in no acute distress. EYES: Normal lids and lashes without swelling or skin changes. Left eye has mild scleral injection. PERRL, EOMI without pain bilaterally. Fluorescein stain of left eye shows a small corneal abrasion at the 4 o'clock position of the iris. Negative Partha sign. Eyelid was everted and there is no foreign body. SKIN: Color normal, no rash, warm, dry, intact. EXTREMITIES: Normal appearance, no pedal edema. NEURO: Alert and answering questions appropriately. PSYCH: Normal affect. Const Vital Signs: 03/23/25 12:58 Temperature 98.2 F Temperature Source Oral Pulse Rate 90 Respiratory Rate 16 Blood Pressure 122/80 H Blood Pressure Mean 94 Pulse Ox 98 Oxygen Delivery Method Room Air MDM <BRIAN Suggs - Last Filed: 03/23/25 14:16> [facility] Narrative Medical decision making narrative: Differential includes but not limited to corneal abrasion, ulcer, foreign body 29-year-old female has atraumatic left eye pain. There is mild injection and fluorescein stain reveals a corneal abrasion. There is no sign of globe injury. There is no signs of preseptal or septal cellulitis. She was given Cipro drops and ophthalmology follow-up and discharged in stable condition. <Dr. Lucius Combs, DO - Last Filed: 03/23/25 21:42> [facility] MDM Narrative Medical decision making narrative: Differential includes but not limited to corneal abrasion, ulcer, foreign body 29-year-old female has atraumatic left eye pain. There is mild injection and fluorescein stain reveals a corneal abrasion. There is no sign of globe injury. There is no signs of preseptal or septal cellulitis. She was given Cipro drops and ophthalmology follow-up and discharged in stable condition. Supervisory Physician Note Patient was seen and examined with the Advanced Practice Provider. Nursing notes and vital signs have been reviewed. Pertinent old records have been reviewed. I agree with the essential elements of the MAIRA's history, physical exam, assessment, and plan. The differential diagnosis and management options were discussed with the MAIRA. I participated in determining and agree with the management, procedures, final impression and disposition as documented. See changes noted by me. Please see addendum or separate note for any additional details. Impression: 1. Left eye corneal abrasion Discharge Plan Triage Chief Complaint: Eye Problem ED Midlevel Provider: Tasneem Kirk ED Provider: Lucius Combs Dx/Rx/DC Orders Clinical Impression: Abrasion of left cornea Instructions: ED Corneal Abrasion Prescriptions: No Action mv-mn [id number] 180 mcg-35 mg- 25 mg-5 mg tablet,chewable 1 tab PO DAILY ondansetron HCl 4 mg tablet 4 mg PO Q6-8H PRN (Reason: nausea and vomiting) Qty: 30 4RF Primary Care Provider: Jennifer Hurst NP Referrals: chev [Other] Rohan Kaur MD [Med Staff - Active Staff] - Jennifer Hurst SCIENTIST ELECTRONICS, SCIENTIST ELECTRONICS-C [Primary Care Provider] - Activity Restrictions/Additional Instructions: Use the prescription, 2 drops into your left eye 4 times a day for 5 days. If symptoms are not improving follow-up with your primary care doctor. Print Language: Cuban Disposition Disposition: Home, Self Care Discharge Date/Time: 03/23/25 14:39
[2025-03-23] MEDS: Ciprofloxacin 0.3% 2.5ml Bottle 2 DRP LEFT EYE (14:35)
[2025-03-23 14:38] VITALS: BP 132/89; PULSE 77; RESP 16; TEMP 36.8; O2SAT 100
== END 2025-03-23 14:39 | disposition home or self-care (01) ==
LOC: ED 13:51
PROVIDERS: Emergency Provider Surgery; PCP Nurse Practitioner Family; Visit Provider Surgery
DX: S05.02XA Injury of conjunctiva and corneal abrasion without foreign body, left eye, initial encounter (principal); X58.XXXA Exposure to other specified factors, initial encounter
CPT/HCPCS: 99282

== ENCOUNTER → 2025-04-16 | Outpatient (CLI) | payer OTHER, SELFPAY | END | disposition home or self-care (01) | LOC: LABSPEC 16:23 | PROVIDERS: PCP Nurse Practitioner Family; Referring Provider Obstetrics & Gynecology; Visit Provider Obstetrics & Gynecology | DX: Z34.83 Encounter for supervision of other normal pregnancy, third trimester (principal) | CPT/HCPCS: 87077; 87081; 87186 ==

== ENCOUNTER 2025-05-11 19:40 | Inpatient (IN) | payer OTHER, SELFPAY ==
[2025-05-11] MEDS: Lactated Ringers 1,000 ML 999 ML IV (19:30)
--- OUTSIDE RECORDS SUMMARY | 2025-05-11 19:46 | XMS RPT_ITS | CCD ---
Author Organization [facility] [employer] Care Team Providers Care Photograph Developer Name Role Phone BRIAN Palomares Attending Provider [phone] Aris SENIOR PROCESS ANALYST, SENIOR PROCESS ANALYST-C Yudi Primary Care Provider [phone] Aris SENIOR PROCESS ANALYST, SENIOR PROCESS ANALYST-C Yudi Referring Provider Dr. Carline Escobar Attending Provider BRIAN Palomares Attending Provider Aris SENIOR PROCESS ANALYST, SENIOR PROCESS ANALYST-C Yudi Primary Care Provider Aris SENIOR PROCESS ANALYST, SENIOR PROCESS ANALYST-C Yudi Referring Provider Dr. Carline Escobar Attending Provider QUITA Hutchins Attending Provider Aris SENIOR PROCESS ANALYST, SENIOR PROCESS ANALYST-C Yudi Primary Care Provider [phone] Aris SENIOR PROCESS ANALYST, SENIOR PROCESS ANALYST-C Yudi Referring Provider Dr. Carline Escobar Attending Provider JUAN F Gutiérrez NPC Tania Attending Provider Dr. Nelly Gay Attending Provider QUITA Goldman Attending Provider Aris SENIOR PROCESS ANALYST, SENIOR PROCESS ANALYST-C Yudi Primary Care Provider Aris SENIOR PROCESS ANALYST, SENIOR PROCESS ANALYST-C Yudi Referring Provider Dr. Carline Escobar Attending Provider Aris SENIOR PROCESS ANALYST, SENIOR PROCESS ANALYST-C Yudi Primary Care Provider Aris SENIOR PROCESS ANALYST, SENIOR PROCESS ANALYST-C Yudi Referring Provider Brock PETERSON, SENIOR PROCESS ANALYST-C Tania Attending Provider [phone] Dr. Nelly Gay Admit Provider [phone] Dr. Nelly Gay Other Provider [phone] Hutchins, QUITA Moe Attending Provider [phone] Cuong, QUITA Moe Admit Provider Cuong, CNEpifanio Moe Other Provider Aris SENIOR PROCESS ANALYST, SENIOR PROCESS ANALYST-C Yudi Primary Care Provider Aris SENIOR PROCESS ANALYST, SENIOR PROCESS ANALYST-C Yudi Referring Provider Dr. Nelly Gay Attending Provider [phone] ARIS, YUDI Attending Unavailable ARIS, YUDI Consulting Unavailable ARIS, YUDI Primary Care Unavailable ARIS, YUDI Admitting Unavailable PROVIDER, UNKNOWN Consulting Unavailable ARIS, YUDI K Primary Care Unavailable CARLINE MITCHELL Referring Unavailab CAIN De La Vega Attending Unavailable Aris SENIOR PROCESS ANALYST-C, Yudi Primary Care Provider Aris SENIOR PROCESS ANALYST-C, Yudi Referring Provider Manjula Goldman CNM Attending Provider [phone] Manjula Goldman CNM Referring Provider [phone] Dr. Carline Escobar DO Attending Provider Dr. Ravinder Suazo MD Attending Provider Dr. Ravinder Suazo MD Referring Provider Dr. Nelly Gay MD Attending Provider Dr. Nelly Gay MD Referring Provider Aris SENIOR PROCESS ANALYST-C, Yudi Primary Care Provider Aris SENIOR PROCESS ANALYST-C, Yudi Referring Provider Manjula Goldman CNM Attending Provider [phone] Aris SENIOR PROCESS ANALYST-C, Yudi Primary Care Provider Aris SENIOR PROCESS ANALYST-C, Yudi Referring Provider Dr. Carline Escobar DO Attending Provider Dr. Chris Combs DOel Emergency Provider Aris SENIOR PROCESS ANALYST-C, Yudi Primary Care Provider Aris SENIOR PROCESS ANALYST-C, Yudi Referring Provider Manjula Goldman CNM Attending Provider [phone] Garret WINTER, Dr. Kan Attending Provider Brock PETERSON-CTania Attending Provider [phone] Jessa Bolden DO, Dr. Crowley Referring Provider Aris SENIOR PROCESS ANALYST-C, Yudi Primary Care Physician Aris SENIOR PROCESS ANALYST-C, Yudi Referring Provider Jessa Bolden DO, Dr. Crowley Attending Physician Dr. Nelly Gay MD Attending Physician Manjula Goldman CNM Attending Physician [phone] Garret WINTER, Dr. Kan Attending Physician Garret WINTER, Dr. Kan [facility] Brock PETERSON-CTania Attending Physician [phone] Carline Escobar Attending Unavailabl e Aris SENIOR PROCESS ANALYST, Yudi Primary Care Unavailable Aris SENIOR PROCESS ANALYST, Yudi Referring Unavailable Aris SENIOR PROCESS ANALYST, Yudi Referring Unavailable Aris SENIOR PROCESS ANALYST, Yudi Primary Care Unavailable Nelly Gay Attending Unavailable Aris SENIOR PROCESS ANALYST, Yudi Primary Care Unavailable Aris SENIOR PROCESS ANALYST, Yudi Referring Unavailable Nelly Gay Attending Unavailable Aris SENIOR PROCESS ANALYST, Yudi Primary Care Unavailable Aris SENIOR PROCESS ANALYST, Yudi Referring Unavailable Manjula Goldman Attending Unavailable Aris SENIOR PROCESS ANALYST, Yudi Primary Care Unavailable Aris SENIOR PROCESS ANALYST, Yudi Referring Unavailable Manjula Goldman Attending Unavailable Aris SENIOR PROCESS ANALYST, Yudi Primary Care Unavailable Aris SENIOR PROCESS ANALYST, Yudi Referring Unavailable Carline Escobar Attending Unavailabl e Aris SENIOR PROCESS ANALYST, Yudi Primary Care Unavailable Aris SENIOR PROCESS ANALYST, Yudi Referring Unavailable Manjula Goldman Attending Unavailable Ravinder Suazo Attending Unavailable Aris SENIOR PROCESS ANALYST, Yudi Primary Care Unavailable Aris SENIOR PROCESS ANALYST, Yudi Referring Unavailable Aris SENIOR PROCESS ANALYST, Yudi Primary Care Unavailable Carline Escobar Referring Unavailabl e Carline Escobar Attending Unavailmargoth Méndez SENIOR PROCESS ANALYST, Yudi Referring Unavailable Manjula Goldman Attending Unavailable Aris SENIOR PROCESS ANALYST, Yudi Primary Care Unavailable Aris SENIOR PROCESS ANALYST, Yudi Primary Care Unavailable Aris SENIOR PROCESS ANALYST, Yudi Referring Unavailable Nelly Gay Attending Unavailable Carline Escobar Attending Unavailmargoth e Aris SENIOR PROCESS ANALYST, Yudi Referring Unavailable Aris SENIOR PROCESS ANALYST, Yudi Primary Care Unavailable Aris SENIOR PROCESS ANALYST, Yudi Referring Unavailable Manjula Goldman Attending Unavailable Aris SENIOR PROCESS ANALYST, Yudi Primary Care Unavailable Aris SENIOR PROCESS ANALYST, Yuid Primary Care Unavailable Manjula Goldman Referring Unavailable Manjula Goldman Attending Unavailable Ravinder Suazo Referring Unavailable Ravinder Suazo Attending Unavailable Aris SENIOR PROCESS ANALYST, Yudi Primary Care Unavailable Nelly Gay Referring Unavailable Nelly Gay Attending Unavailable Aris SENIOR PROCESS ANALYST, Yudi Primary Care Unavailable Lucius Combs Attending Unavailmargoth e Aris SENIOR PROCESS ANALYST, Yudi Primary Care Unavailable Aris SENIOR PROCESS ANALYST, Yudi Primary Care Unavailable Aris SENIOR PROCESS ANALYST, Yudi Referring Unavailable Nelly Gay Attending Unavailable Aris SENIOR PROCESS ANALYST, Yudi Primary Care Unavailable Aris SENIOR PROCESS ANALYST, Yudi Referring Unavailable Manjula Goldman Attending Unavailable Aris SENIOR PROCESS ANALYST, Yudi Primary Care Unavailable Aris SENIOR PROCESS ANALYST, Yudi Referring Unavailable Brock SENIOR PROCESS ANALYST, Tania Attending Unavailable Allergies Allergy Classification Reported Allergen(s) Allergy Type Date of Onset Reaction(s) Facility (20 sources) Amoxicillin Drug Allergy 06-08-20 unknown, [facility] Comment on above: Itching (20 sources) Clavulanate Drug Allergy 06-08-20 unknown, [facility] Comment on above: itch (20 sources) Sulfamethoxazole Drug Allergy 06-08-20 unknown, [facility] Comment on above: Itch (20 sources) terbinafine Drug Allergy 06-08-20 unknown, [facility] Comment on above: itch (20 sources) Trimethoprim Drug Allergy 06-08-20 unknown, [facility] Comment on above: Itch (15 sources) Penicillins Allergy to substance 01-24-20 23 Other, [facility] Comment on above: itch (1 source) Amoxicillin / Clavulanate Drug Allergy [facility] (1 source) Sulfamethoxazole / Trimethoprim Drug Allergy [facility] (1 source) Amoxicillin Drug Allergy 05-07-20 [facility] (1 source) Clavulanate Drug Allergy 05-07-20 [facility] (1 source) Penicillins Drug allergy (disorder) 05-07-20 [facility] (1 source) Sulfamethoxazole Drug Allergy 05-07-20 [facility] (1 source) terbinafine Drug Allergy 05-07-20 [facility] (1 source) Trimethoprim Drug Allergy 05-07-20 [facility] Medications Current Medications Medication Drug Class(es) Dates Sig (Normalized) Sig (Original) Mv-Mn 556-Za-Vw3-Dha-Epa-F sherry 180 mcg-35 mg- 25 mg-5 mg tablet,chewable (12 sources) Start: 06-01-2022 Mv-Mn 310-Fl-Bl9-Dha-Epa- Fish 180 mcg-35 mg- 25 mg-5 mg tablet,chewable Active 1 {tbl} PO DAILY June 01, 2022 12:00am Check with primary doctor Complies with drug therapy Start: 06-01-2022 Mv-Mn 110-Fa-O t3-Jay-Zri-Fish 180 mcg-35 mg- 25 mg-5 mg tablet,chewable Active 1 {tbl} PO DAILY June 01, 2022 12:00am Check with primary doctor Start: 06-01-2022 Mv-Mn 110-Fa-O l4-Snr-Cxs-Fish 180 mcg-35 mg- 25 mg-5 mg tablet,chewable Active 1 {tbl} PO DAILY June 01, 2022 12:00am ondansetron 4 mg oral tablet (20 sources) Serotonin-3 Receptor Antagonist Start: 10-04-2024 Ondansetron Hcl 4 mg tablet Active 4 mg PO EVERY 6-8 HOURS as needed for nausea and vomiting 30 4 October 04, 2024 1:00am Nausea and vomiting during Vomiting of , unspecified Complies with drug therapy Start: 09-23-2024 End: 10-04-2024 take 1 tablet [...] 2022 1:00am August 07, 2022 1:04am Pnv No.808-Ed-Nu6-Dha-Epa-Fi sh (8 sources) Start: 06-01-2022 take 1 tablet by mouth once daily Pnv No.500-Hz-Jm3-Tyr-Wyx-Jlqw Active 1 TABLET PO DAILY May 31, 2022 11:00pm Start: 06-01-2022 take 1 tablet by nelsy th once daily Pnv No.508-Gz-Fv7-Koj-Pig-Cuwm Active 1 TABLET PO DAILY June 01, 2022 12:00am Start: 06-01-2022 Pnv No.178-Fa- Ua2-Ulc-Vdq-Fish Active TABLET PO May 31, 2022 11:00pm Start: 06-01-2022 Pnv No.178-Fa- Kb2-Bda-Dgp-Fish Active TABLET PO June 01, 2022 12:00am Pnv No.513-Hn-Tx5-Ztq-Uww-Ogbm 180 mcg-35 mg- 25 mg-5 mg tablet,chewable (1 source) Start: 06-01-2022 Pnv No.850-Yb-Qt3-Vfq-Moq-Lkvl 180 mcg-35 mg- 25 mg-5 mg tablet,chewable Active 1 {tbl} PO DAILY June 01, 2022 12:00am promethazine hydrochloride 12.5 mg oral tablet (6 sources) Phenothiazine Start: 05-24-2022 take 12.5 mg by mouth every six hours Promethazine Active 12.5 MG PO EVERY 6 HOURS 60 May 24, 2022 12:00am Completed/Discontinued Medications Medication Drug Class(es) Dates Sig (Normalized) Sig (Original) azithromycin 250 mg oral tablet (15 sources) Macrolide Antimicrobial Start: 01-18-2023 End: 01-26-2023 take 2 tablets by mouth once daily Azithromycin (Zithromax Z-Aj) 250 mg tablet Discontinued 250 mg PO DAILY 6 6 0 January 18, 2023 12:00am January 23, 2023 12:00am January 26, 2023 12:04am start on day 2 of therapy ferrous sulfate 325 mg oral tablet (15 sources) Start: 01-23-2023 End: 03-06-2023 take 1 tablet by mouth once daily Ferrous Sulfate (Iron) 325 mg (65 mg iron) Tablet Discontinued 325 mg PO DAILY January 23, 2023 12:00am March 06, 2023 11:36am Check with primary doctor Problems Active Problems Problem Classification Problem Date Documented Date Episodic/Chronic Bacterial infection; unspecified site (11 sources) Bacteria present; Translations: [Streptococcus, group B, as the cause of diseases classified elsewhere] Onset: 05-07-2025 04-21-2025 Episodic Comment on above: Allergic to PNC, res istant to Clinda. Will need vanc in labor Diabetes or abnormal glucose tolerance complicating ; [...] disease] Onset: 02-19-2025 Episodic Other complications of (19 sources) Anemia; Translations: [Anemia complicating , unspecified trimester] 10-27-2022 Chronic Comment on above: add FE. Recheck CBC 4 weeks:improved Other complications of (20 sources) Anemia complicating , unspecified trimester; Translations: [Anemia of mother, unspecified as to episode of care or not applicable] 10-27-2022 Chronic Other complications of (16 sources) Group B 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; Translations: [Streptococcus B carrier state complicating ] 12-23-2022 Episodic Comment on above: treat with Vancomyci n at delivery Other complications of (5 sources) Streptococcus B carrier state complicating ; Translations: [Supervision of other high-risk ] 12-28-2022 Episodic Other complications of (20 sources) Vomiting of , unspecified; Translations: [Nausea and vomiting during ] Onset: 03-19-2025 10-04-2024 Episodic Other eye disorders (1 source) Unspecified disorder of eye and adnexa; Translations: [Unspecified disorder of eye and adnexa] Onset: 03-28-2025 Episodic Other nutritional; endocrine; and metabolic disorders (20 sources) Hyperbilirubinemia; Translations: [Other disorders of bilirubin metabolism] 10-03-2022 Chronic Other nutritional; endocrine; and metabolic disorders (4 sources) Other disorders of bilirubin metabolism; Translations: [Jaundice, unspecified, not of ] Chronic Other and delivery including normal (20 sources) Normal ; Translations: [Encounter for supervision of normal first , unspecified trimester] Onset: 03-19-2025 Episodic Comment on above: IOL for postdates. 1 .5/80/-3pitocin and saenz bulb [id number], PARAG 01/16/23 , boy Cm Spouse Sudheer PRR,, PARAG 5, PC Pabon, Sudheer IOL postdates at 41. . boy: cm. LC declines NIPT & [place]ledge ier testing anatomy nl, declined afp NIPT & Carrier testing PRR,, PARAG 5, girl PC Cm, Cecily Willard Other screening for suspected conditions (not mental disorders or infectious disease) (20 sources) Patient encounter status; Translations: [Encounter for screening for disorder due to exposure to contaminants] Onset: 05-07-2025 01-29-2025 Episodic Comment on above: negative Other upper respiratory infections (6 sources) Acute pharyngitis; Translations: [Acute pharyngitis, unspecified] Episodic Residual codes; unclassified (1 source) 39 weeks gestation of ; Translations: [39 weeks gestation of ] Onset: 05-07-2025 Episodic Residual codes; unclassified (1 source) 38 weeks gestation of ; Translations: [38 weeks gestation of ] Onset: 04-30-2025 Episodic Residual codes; unclassified (1 source) 37 weeks gestation of ; Translations: [37 weeks gestation of ] Onset: 04-24-2025 Episodic Residual codes; unclassified (1 source) 36 weeks gestation of ; Translations: [36 weeks gestation of ] Onset: 04-16-2025 Episodic Residual codes; unclassified (1 source) 32 weeks gestation of ; Translations: [32 weeks gestation of ] Onset: 03-19-2025 Episodic Residual codes; unclassified (1 source) 28 weeks gestation of ; Translations: [28 weeks gestation of ] Onset: 02-19-2025 Episodic Superficial injury; contusion (7 sources) Abrasion of left cornea; Translations: [Injury of conjunctiva and corneal abrasion without foreign body, left eye, initial encounter] 03-23-2025 Episodic Thyroid disorders (20 sources) Thyroid nodule; Translations: [Nontoxic single thyroid nodule] Onset: 05-07-2025 11-26-2024 Chronic Comment on above: Patient is [...] te Episodic/Chronic Residual codes; unclassified (1 source) 25 weeks gestation of ; Translations: [25 weeks gestation of ] Onset: 01-29-2025 Episodic Residual codes; unclassified (1 source) 16 weeks gestation of ; Translations: [16 weeks gestation of ] Onset: 11-27-2024 Episodic Residual codes; unclassified (1 source) 8 weeks gestation of ; Translations: [8 weeks gestation of ] Onset: 10-04-2024 Episodic Results Test Name Value Interpretation Reference Range Facility Violin Mechanic Office Visit Reporton 05-07-2025 Violin Mechanic Office Visit Report [facility] [address] [place] [address], [address] [place] [address] OFFICE VISIT Date of Service: 05/07/25 MR#: [id number] Acct: [id number] Name: JIMMY ATWOOD Rep #: [id number] : 1995 Provider: Dr. Nelly bangura MD Age/Sex: 30/F Location: [facility] Status: Signed Intake Vital Signs 03/31/25 15:44 04/30/25 15:00 05/07/25 15:26 Height 5 ft 7 in 5 ft 7 in 5 ft 7 in Weight: 190 lb 9 oz BMI 29.8 BP 122/76 H Intake Visit Reasons: 39wk ob Plastic Outfitter Required: No Is patient in pain?: No Allergies Penicillins Allergy (Intermediate, Verified 05/07/25 15:26) Rash amoxicillin (From Augmentin) Adverse Reaction (Intermediate, Verified 05/07/25 15:26) Rash clavulanic acid (From Augmentin) Adverse Reaction (Intermediate, Verified 05/07/25 15:26) Rash sulfamethoxazole (From Bactrim) Adverse Reaction (Intermediate, Verified 05/07/25 15:26) Rash terbinafine (From Lamisil) Adverse Reaction (Intermediate, Verified 05/07/25 15:26) Rash trimethoprim (From Bactrim) Adverse Reaction (Intermediate, Verified 05/07/25 15:26) Rash Medications ???Medication ???Instructions ???Recorded ???Confirmed ???Type mv-mn 110-FA 180 mcg-om3 35 mg-dha 1 tab PO DAILY Check with primar y 06/01/22 05/07/25 History 25 mg-epa 5 mg-fish oil chew tablet doctor ondansetron HCl 4 mg tablet 4 mg PO Q6-8H PRN nausea and 10/0405/07/25 Rx vomiting #30 tabs Last Menstrual Period: 08/03/24 Zika: Zika virus screening: Negative : No PFSH PFSH Medical History GBS (group B 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), +RV culture, currently Surgical History Hx of tonsillectomy Family History Father Heart disease Social History adopted: No household members: spouse and children housing: house number of children: 1 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 Date Name GA/Weeks Outcome Route Bth Weight Infant [facility] Cm 41 live - full term 9#[facility]oz [facility] HPI 39wk ob Details: JIMYM ATWOOD is a 30 year old who presents for routine OB visit. OB Visit PARAG Calculator Estimated Delivery Date Method Current WG Current Estimate 05/14/25 Ultrasound #1 39w 0d Other Estimates 05/10/25 LMP (Certain) 39w 4d Expected Delivery Route/Plan Labor Preferences- CB/BF [...] list details Initial Weight: 152 lb Date -???-???-???-???-???-? ??-???-???-???-???-??? -???- EGA Weight BP Urine Prot -???-???-???-???-???-? ??-???-???-???-???-??? -???- Glucose FHR FuHt Pres Dilation -???-???-???-???-???-? ??-???-???-???-???-??? -???- Effaced St Visit Note 10/04/24 -???-???-???-???-???-? ??-???-???-???-???-??? -???- 8w 2d 152 lb 6 oz (+6 oz) 124/82 -???-???-???-???-???-? ??-???-???-???-???-??? -???- 171 -???-???-???-???-???-? ??-???-???-???-???-??? -???- KW- CRL cons with renato (more content not included)... Normal [facility] - Chemistry and C hemistry - challengeOrdered By: Manjula Goldman on 04-30-2025 Glucose Ql (U) Negative [facility] - UrinalysisOrder ed By: Manjula Goldman on 04-30-2025 Protein Ql (U) Negative [facility] Violin Mechanic Office Visit Reporton 04-30-2025 Violin Mechanic Office Visit Report [facility] [address] [facility], [address] [place] [address] OFFICE VISIT Date of Service: 04/30/25 MR#: [id number] Acct: [id number] Name: JIMMY ATWOOD Rep #: [id number] : 1995 Provider: QUITA Tanner ams Age/Sex: 30/F Location: [facility] Status: Signed Intake Vital Signs 03/31/25 15:44 04/24/25 13:50 04/30/25 15:00 Height 5 ft 7 in 5 ft 7 in 5 ft 7 in Weight: 189 lb BMI 29.6 BP 118/72 Intake Visit Reasons: 38wk ob Chief Complaint: 38wk OB Plastic Outfitter Required: No Is patient in pain?: No Allergies Penicillins Allergy (Intermediate, Verified 04/30/25 14:58) Rash amoxicillin (From Augmentin) Adverse Reaction (Intermediate, Verified 04/30/25 14:58) Rash clavulanic acid (From Augmentin) Adverse Reaction (Intermediate, Verified 04/30/25 14:58) Rash sulfamethoxazole (From Bactrim) Adverse Reaction (Intermediate, Verified 04/30/25 14:58) Rash terbinafine (From Lamisil) Adverse Reaction (Intermediate, Verified 04/30/25 14:58) Rash trimethoprim (From Bactrim) Adverse Reaction (Intermediate, Verified 04/30/25 14:58) Rash Medications ???Medication ???Instructions ???Recorded ???Confirmed ???Type mv-mn 110-FA 180 mcg-om3 35 mg-dha 1 tab PO DAILY Check with primar y 06/01/22 04/30/25 History 25 mg-epa 5 mg-fish oil chew tablet doctor ondansetron HCl 4 mg tablet 4 mg PO Q6-8H PRN nausea and 10/0404/30/25 Rx vomiting #30 tabs Last Menstrual Period: 08/03/24 : No PFSH PFSH Medical History GBS (group B 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), +RV culture, currently Surgical History Hx of tonsillectomy Family History Father Heart disease Social History adopted: No household members: spouse and children housing: house number of children: 1 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 Date Name GA/Weeks Outcome Route Bth Weight Gen Labor Lgth Anesthesia Del Locatn Provider FOB 01/23/23 Cm 41 live - full term 9#1oz Male epidural [facility] HPI 38wk ob Details: JIMMY ATWOOD is a 30 year old who presents for routine OB visit. OB Visit PARAG Calculator Estimated Delivery Date Method Current WG Current Estimate 05/14/25 Ultrasound #1 38w 0d Other Estimates 05/10/25 LMP (Certain) 38w 4d Expected Delivery Route/Plan Labor Preferences- CB/BF [...] list details Initial Weight: 152 lb Date -???-???-???-???-???-? ??-???-???-???-???-??? -???- EGA Weight BP Urine Prot -???-???-???-???-???-? ??-???-???-???-???-??? -???- Glucose FHR FuHt Pres Dilation -???-???-???-???-???-? ??-???-???-???-???-??? -???- Effaced St Visit Note 10/04/24 -???-???-???-???-???-? ??-???-???-???-???-??? -???- 8w 2d 152 lb 6 oz (+6 oz) 124/82 -???-???-???-???-???-? ??-???-???-???-???-??? -???- 171 -???-???-???-???-???-? ??-???-???-???-???-??? -???- KW- CRL cons with dates. Declines NIPT. would like some appt (more content not included)... Normal [facility] - Chemistry and C hemistry - challengeOrdered By: Nelly Gay on 04-24-2025 Glucose Ql (U) Negative [facility] - UrinalysisOrder ed By: Nelly Gay on 04-24-2025 Protein Ql (U) Negative [facility] Violin Mechanic Office Visit Reporton 04-24-2025 Violin Mechanic Office Visit Report [facility] [address], [address] [place] [address] OFFICE VISIT Date of Service: 04/24/25 MR#: [id number] Acct: [id number] Name: JIMMY ATWOOD Rep #: [id number] : 1995 Provider: Dr. Nelly bangura MD Age/Sex: 30/F Location: [facility] Status: Signed Intake Vital Signs 03/31/25 15:44 04/16/25 15:28 04/24/25 13:50 Height 5 ft 7 in 5 ft 7 in 5 ft 7 in Weight: 187 lb BMI 29.2 BP 115/69 Intake Visit Reasons: 37wk ob Plastic Outfitter Required: No Is patient in pain?: No Allergies Penicillins Allergy (Intermediate, Verified 04/24/25 13:56) Rash amoxicillin (From Augmentin) Adverse Reaction (Intermediate, Verified 04/24/25 13:56) Rash clavulanic acid (From Augmentin) Adverse Reaction (Intermediate, Verified 04/24/25 13:56) Rash sulfamethoxazole (From Bactrim) Adverse Reaction (Intermediate, Verified 04/24/25 13:56) Rash terbinafine (From Lamisil) Adverse Reaction (Intermediate, Verified 04/24/25 13:56) Rash trimethoprim (From Bactrim) Adverse Reaction (Intermediate, Verified 04/24/25 13:56) Rash Medications ???Medication ???Instructions ???Recorded ???Confirmed ???Type mv-mn 110-FA 180 mcg-om3 35 mg-dha 1 tab PO DAILY Check with primar y 06/01/22 04/24/25 History 25 mg-epa 5 mg-fish oil chew tablet doctor ondansetron HCl 4 mg tablet 4 mg PO Q6-8H PRN nausea and 10/0404/24/25 Rx vomiting #30 tabs Last Menstrual Period: 08/03/24 Zika: Zika virus screening: Negative : No PFSH PFSH Medical History GBS (group B 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), +RV culture, currently Surgical History Hx of tonsillectomy Family History Father Heart disease Social History adopted: No household members: spouse and children housing: house number of children: 1 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 Date Name GA/Weeks Outcome Route Bth Weight Gen Labor Lgth Anesthesia Del Locatn Provider FOB 01/23/23 Cm 41 live - full term 9#1oz Male epidural [facility] HPI 37wk ob Details: JIMMY ATWOOD is a 30 year old who presents for routine OB visit. OB Visit PARAG Calculator Estimated Delivery Date Method Current Current Estimate 05/14/25 Ultrasound #1 37w 1d Other Estimates 05/10/25 LMP (Certain) 37w 5d Expected Delivery Route/Plan Labor Preferences- CB/BF classes: [...] list details Initial Weight: 152 lb Date -???-???-???-???-???-? ??-???-???-???-???-??? -???- EGA Weight BP Urine Prot -???-???-???-???-???-? ??-???-???-???-???-??? -???- Glucose FHR FuHt Pres Dilation -???-???-???-???-???-? ??-???-???-???-???-??? -???- Effaced St Visit Note 10/04/24 -???-???-???-???-???-? ??-???-???-???-???-??? -???- 8w 2d 152 lb 6 oz (+6 oz) 124/82 -???-???-???-???-???-? ??-???-???-???-???-??? -???- 171 -???-???-???-???-???-? ??-???-???-???-???-??? -???- KW- CRL cons with dates. Dec (more content not included)... Normal [facility] Rule out Beta Strep (Grp. B) on 04-20-2025 CICI Streptococcus agalactiae (B) Amount Growth Growth Streptococcus agalactiae (B): REACTION Ampicillin Islt MACK <=0.25 cefTRIAXone Islt MACK <=0.12 S Clindamycin Islt MACK >=1 R Clindamycin.induced Susc Islt NEG Linezolid Islt MACK <=2 S Vancomycin Islt MACK 0.[address] [facility] Comment on above: Performed By: #### M 100.9026 #### [facility] Laboratory [facility] [place] [address], [address] Laboratory - Chemistry and C hemistry - challengeOrdered By: Carline Bolden on 04-16-2025 Glucose Ql (U) Negative [facility] Laboratory - UrinalysisOrder ed By: Carline Kimi on 04-16-2025 Protein Ql (U) Negative [facility] Violin Mechanic Office Visit Reporton 04-16-2025 Violin Mechanic Office Visit Report [facility]'[address], [address] [place] [address] OFFICE VISIT Date of Service: 04/16/25 MR#: [id number] Acct: [id number] Name: JIMMY ATWOOD Rep #: [id number] : 1995 Provider: Dr. Carline Rueda DO Age/Sex: 30/F Location: [facility] [place] Status: Signed Intake Vital Signs 03/07/25 16:14 03/31/25 15:44 04/16/25 15:28 04/16/25 15:28 Height 5 ft 7 in 5 ft 7 in 5 ft 7 in 5 ft 7 in Weight: 187 lb 6 oz BMI 29.3 BP 119/73 Intake Visit Reasons: 36wk ob Plastic Outfitter Required: No Is patient in pain?: No Allergies Penicillins Allergy (Intermediate, Verified 04/16/25 15:27) Rash amoxicillin (From Augmentin) Adverse Reaction (Intermediate, Verified 04/16/25 15:27) Rash clavulanic acid (From Augmentin) Adverse Reaction (Intermediate, Verified 04/16/25 15:27) Rash sulfamethoxazole (From Bactrim) Adverse Reaction (Intermediate, Verified 04/16/25 15:27) Rash terbinafine (From Lamisil) Adverse Reaction (Intermediate, Verified 04/16/25 15:27) Rash trimethoprim (From Bactrim) Adverse Reaction (Intermediate, Verified 04/16/25 15:27) Rash Medications ???Medication ???Instructions ???Recorded ???Confirmed ???Type mv-mn 110-FA 180 mcg-om3 35 mg-dha 1 tab PO DAILY Check with primar y 06/01/22 04/16/25 History 25 mg-epa 5 mg-fish oil chew tablet doctor ondansetron HCl 4 mg tablet 4 mg PO Q6-8H PRN nausea and 10/0404/16/25 Rx vomiting #30 tabs Last Menstrual Period: 08/03/24 Zika: Zika virus screening: Negative : No PFSH PFSH Medical History GBS (group B 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), +RV culture, currently Surgical History Hx of tonsillectomy Family History Father Heart disease Social History adopted: No household members: spouse and children housing: house number of children: 1 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 Date Name GA/Weeks Outcome Route Bth Weight Gen Labor Lgth Anesthesia Del Locatn Provider FOB 01/23/23 Cm 41 live - full term 9#1oz Male epidural [facility] HPI 36wk ob Details: JIMMY ATWOOD is a 30 year old who presents for routine OB visit. OB Visit PARAG Calculator Estimated Delivery Date Method Current WG Current Estimate 05/14/25 Ultrasound #1 36w 0d Other Estimates 05/10/25 LMP (Certain) 36w 4d Expected Delivery Route/Plan Labor Preferences- CB/BF [...] list details Initial Weight: 152 lb Date -???-???-???-???-???-? ??-???-???-???-???-??? -???- EGA Weight BP Urine Prot -???-???-???-???-???-? ??-???-???-???-???-??? -???- Glucose FHR FuHt Pres Dilation -???-???-???-???-???-? ??-???-???-???-???-??? -???- Effaced St Visit Note 10/04/24 -???-???-???-???-???-? ??-???-???-???-???-??? -???- 8w 2d 152 lb 6 oz (+6 oz) 124/82 -???-???-???-???-???-? ??-???-???-???-???-??? -???- 171 -???-???-???-???-???-? ??-???-???-???-??? (more content not included)... Normal [facility] Screening beta-hemolytic Str eptococcus cultureOrdered By: Carline Bolden on 04-16-2025 Beta-hemolytic Streptococcus culture Streptococcus agalactiae (B) Abnormal [facility] Laboratory - Chemistry and C hemistry - challengeOrdered By: Tania Gutiérrez on 03-31-2025 Glucose Ql (U) Negative [facility] Laboratory - UrinalysisOrder ed By: Tania Brock on 03-31-2025 Protein Ql (U) Negative [facility] Violin Mechanic Office Visit Reporton 03-31-2025 Violin Mechanic Office Visit Report [facility]'[address], [address] [place] [address] OFFICE VISIT Date of Service: 03/31/25 MR#: [id number] Acct: [id number] Name: JIMMY ATWOOD Rep #: [id number] : 1995 Provider: MANPREET byrd Age/Sex: 29/F Location: [facility] [place] Status: Signed Intake Vital Signs 03/07/25 16:14 03/23/25 12:58 03/31/25 15:44 Height 5 ft 7 in 5 ft 7 in 5 ft 7 in Weight: 183 lb BMI 28.6 BP 118/71 Intake Visit Reasons: 34wk ob Plastic Outfitter Required: No Is patient in pain?: No Allergies Penicillins Allergy (Intermediate, Verified 03/31/25 15:47) Rash amoxicillin (From Augmentin) Adverse Reaction (Intermediate, Verified 03/31/25 15:47) Rash clavulanic acid (From Augmentin) Adverse Reaction (Intermediate, Verified 03/31/25 15:47) Rash sulfamethoxazole (From Bactrim) Adverse Reaction (Intermediate, Verified 03/31/25 15:47) Rash terbinafine (From Lamisil) Adverse Reaction (Intermediate, Verified 03/31/25 15:47) Rash trimethoprim (From Bactrim) Adverse Reaction (Intermediate, Verified 03/31/25 15:47) Rash Medications ???Medication ???Instructions ???Recorded ???Confirmed ???Type mv-mn 110-FA 180 mcg-om3 35 mg-dha 1 tab PO DAILY Check with primar y 06/01/22 03/31/25 History 25 mg-epa 5 mg-fish oil chew tablet doctor ondansetron HCl 4 mg tablet 4 mg PO Q6-8H PRN nausea and 10/0403/31/25 Rx vomiting #30 tabs Last Menstrual Period: 08/03/24 Zika: Zika virus screening: Negative : No Have you fallen in the past year?: No PFSH PFSH Medical History GBS (group B 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), +RV culture, currently Surgical History Hx of tonsillectomy Family History Father Heart disease Social History adopted: No household members: spouse and children housing: house number of children: 1 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 Date Name GA/Weeks Outcome Route Bth Weight Gen Labor Lgth Anesthesia Del Locatn Provider FOB 01/23/23 Cm 41 live - full term 9#1oz Male epidural [facility] Narcisa Hutchins Sudheer HPI 34wk ob Details: JIMMY ATWOOD is a 29 year old who presents for routine OB visit. OB Visit PARAG Calculator Estimated Delivery Date Method Current WG Current Estimate 05/14/25 Ultrasound #1 33w 5d Other Estimates 05/10/25 LMP (Certain) 34w 2d Expected Delivery Route/Plan Labor Preferences- CB/BF classes: [...] list details Initial Weight: 152 lb Date -???-???-???-???-???-? ??-???-???-???-???-??? -???- EGA Weight BP Urine Prot -???-???-???-???-???-? ??-???-???-???-???-??? -???- Glucose FHR FuHt Pres Dilation -???-???-???-???-???-? ??-???-???-???-???-??? -???- Effaced St Visit Note 10/04/24 -???-???-???-???-???-? ??-???-???-???-???-??? -???- 8w 2d 152 lb 6 oz (+6 oz) 124/82 -???-???-???-???-???-? ??-???-???-???-???-??? -???- 171 -???-???-???-???-???-? ??-???-???-???-???-??? -???- KW- C (more content not included)... Normal [facility] Emergency Department Summary on 03-23-2025 Emergency Department Summary [facility] Medical Records Department [address] [place] [address] Emergency Department Summary 03/23/25 MR#: [id number] Acct: [id number] Name: JIMMY ATWOOD Rep #: [id number] : 1995 29 From: Lucius Combs DO PCP: MANPREET Calvin Status:DEP ER Location: ED HPI History of Present Illness Chief Complaint: Eye Problem Narrative Narrative: 21-year-old female was at a golf outing yesterday and developed discomfort in her left eye with a foreign body sensation. She does not recall anything getting in it and there was no trauma. She has had pain with opening the eye and clear tearing. No purulent drainage. No vision changes. She does not wear glasses or contacts. She reports having corneal abrasion in the same eye in the past. [facility] Medical History GBS (group B 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), +RV culture, currently Home Medications ???Medication ???Instructions ???Recorded ???Last Taken ???Type mv-mn 110-FA 180 mcg-om3 35 mg-dha 1 tab PO DAILY Check with primar y 06/01/22 Unknown History 25 mg-epa 5 mg-fish oil chew tablet doctor ondansetron HCl 4 mg tablet 4 mg PO Q6-8H PRN nausea and 10/04 Unknown Rx vomiting #30 tabs Allergy/AdvReac Type Severity Reaction Status Date / Time Penicillins Allergy Intermediate Rash Verified 03/23/25 13:00 amoxicillin (From Augmentin) AdvReac Intermediate Rash Verified 03/23/25 13:00 clavulanic acid (From AdvReac Intermediate Rash Verified 03/23/25 13:00 Augmentin) sulfamethoxazole (From AdvReac Intermediate Rash Verified 03/23/25 13:00 Bactrim) terbinafine (From Lamisil) AdvReac Intermediate Rash Verified 03/23/25 13:00 trimethoprim (From Bactrim) AdvReac Intermediate Rash Verified 03/23/25 13:00 Family History Father Heart disease Surgical History Hx of tonsillectomy Social History adopted: No household members: spouse and children housing: house number of children: 1 current occupational status: employed 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 Eyes: Negative for visual change. Neuro: Negative for headache. EXAM Physical Exam Narrative Exam Narrative: CONST: Patient sitting in no acute distress. EYES: Normal lids and lashes without swelling or skin changes. Left eye has mild scleral injection. PERRL, EOMI without pain bilaterally. Fluorescein stain of left eye shows a small corneal abrasion at the 4 o'clock position of the iris. Negative Partha sign. Eyelid was everted and there is no foreign body. SKIN: Color normal, no rash, warm, dry, intact. EXTREMITIES: Normal appearance, no pedal edema. NEURO: Alert and answering questions appropriately. PSYCH: Normal affect. Const Vital Signs: 03/23/25 12:58 Temperature 98.2 F Temperature Source Oral Pulse Rate 90 Respiratory Rate 16 Blood Pressure 122/80 H Blood Pressure Mean 94 Pulse Ox 98 Oxygen Delivery Method Room Air MDM MDM MDM Narrative Medical decision making narrative: Differential includes but not limited to corneal abrasion, ulcer, foreign body 29-year-old female has atraumatic left eye pain. There is mild injection and fluorescein stain reveals a corneal abrasion. There is no sign of globe injury. There is no signs of preseptal or septal cellulitis. She was given Cipro drops and ophthalmology follow-up and discharged in stable condition. MDM MDM Narrative Medical decision making narrative: Differential includes but not limited to corneal abrasion, ulcer, foreign body 29-year-old female has atraumatic left eye pain. There is mild injection and fluorescein stain reveals a corneal abrasion. There is no sign of globe injury. There is no signs of preseptal or septal cellulitis. She was given Cipro drops and ophthalmology follow-up and di (more content not included)... Normal [facility] Laboratory - Chemistry and C hemistry - challengeOrdered By: Manjula Goldman on 03-19-2025 Glucose Ql (U) Negative [facility] Laboratory - UrinalysisOrder ed By: Manjula Goldman on 03-19-2025 Protein Ql (U) Trace [facility] Violin Mechanic Office Visit Reporton 03-19-2025 Violin Mechanic Office Visit Report 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 Date Name GA/Weeks Outcome Route Bth Weight Infant Gen Labor Lgth Anesthesia Del Locatn Provider FOB 01/23/23 Cm 41 live - full term 9#1oz Male epidural [facility] latia Willard HPI 32 wk ob Details: JIMMY [...] list details Initial Weight: 152 lb Date -???-???-???-???-???-? ??-???-???-???-???-??? -???- EGA Weight BP Urine Prot -???-???-???-???-???-? ??-???-???-???-???-??? -???- Glucose FHR FuHt Pres Dilation -???-???-???-???-???-? ??-???-???-???-???-??? -???- Effaced St Visit Note 10/04/24 -???-???-???-???-???-? ??-???-???-???-???-??? -???- 8w 2d 152 lb 6 oz (+6 oz) 124/82 -???-???-???-???-???-? ??-???-???-???-???-??? -???- 171 -???-???-???-???-???-? ??-???-???-???-???-??? -???- KW- CRL cons with dates. Declines NIPT. would like some appts in [place]. 11/01/24 (more content not included)... Normal [facility] Violin Mechanic Office Visit Report [facility]'s [address], [address] [place] [address] OFFICE VISIT Date of Service: 03/19/25 MR#: [id number] Acct: [id number] Name: JIMMY ATWOOD Rep #: [id number] : 1995 Provider: QUITA Tanner ams Age/Sex: 29/F Location: [facility] Status: Signed Intake Vital Signs 01/29/25 15:15 03/07/25 16:14 03/19/25 12:49 03/19/25 12:51 03/19/25 12:54 Height 5 ft 7 in 5 ft 7 in 5 ft 7 in 5 ft 7 in 5 ft 7 in Weight: 183 lb BMI 28.6 BP 104/67 Intake Visit Reasons: 32 wk ob Plastic Outfitter Required: No Is patient in pain?: No [...] mg-dha 1 tab PO DAILY Check with munira fields 06/01/22 03/19/25 History 25 mg-epa 5 mg-fish [...] 1 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 Date Name GA/Weeks Outcome Route Bth Weight Infant Gen Labor Lgth Anesthesia Del Locatn Provider FOB 01/23/23 Cm 41 live - full term 9#1oz Male epidural [facility] Narcisa Hutchins Sudheer HPI 32 wk ob Details: JIMMY ATWOOD [...] list details Initial Weight: 152 lb Date -???-???-???-???-???-? ??-???-???-???-???-??? -???- EGA Weight BP Urine Prot -???-???-???-???-???-? ??-???-???-???-???-??? -???- Glucose FHR FuHt Pres Dilation -???-???-???-???-???-? ??-???-???-???-???-??? -???- Effaced St Visit Note 10/04/24 -???-???-???-???-???-? ??-???-???-???-???-??? -???- 8w 2d 152 lb 6 oz (+6 oz) 124/82 -???-???-???-???-???-? ??-???-???-???-???-??? -???- 171 -???-???-???-???-???-? ??-???-???-???-???-??? -???- KW- CRL cons with dates. Mims (more content not included)... Normal [facility] Laboratory - Chemistry and C hemistry - challengeOrdered By: Nelly Gay on 03-07-2025 Glucose Ql (U) Negative [facility] Laboratory - UrinalysisOrder ed By: Nelly Gay on 03-07-2025 Protein Ql (U) Negative [facility] Violin Mechanic Office Visit Reporton 03-07-2025 Violin Mechanic Office Visit Report [facility]'s [address], [address] [place] [address] OFFICE VISIT Date of Service: 03/07/25 MR#: [id number] Acct: [id number] Name: JIMMY ATWOOD Rep #: [id number] : 1995 Provider: Dr. 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 Date Name GA/Weeks Outcome Route Bth Weight Infant Gen Labor Lgth Anesthesia Del Locatn Provider FOB 01/23/23 Cm 41 live - full term 9#1oz Male epidural [facility] Narcisa Willard HPI 30 wk ob Details: JIMMY ATWOOD [...] list details Initial Weight: 152 lb Date -???-???-???-???-???-? ??-???-???-???-???-??? -???- EGA Weight BP Urine Prot -???-???-???-???-???-? ??-???-???-???-???-??? -???- Glucose FHR FuHt Pres Dilation -???-???-???-???-???-? ??-???-???-???-???-??? -???- Effaced St Visit Note 10/04/24 -???-???-???-???-???-? ??-???-???-???-???-??? -???- 8w 2d 152 lb 6 oz (+6 oz) 124/82 -???-???-???-???-???-? ??-???-???-???-???-??? -???- 171 -???-? (more content not included)... Normal [facility] Laboratory - Chemistry and C hemistry - challengeOrdered By: Manjula Goldman on 02-19-2025 Glucose Ql (U) Negative [facility] Laboratory - UrinalysisOrder ed By: Manjula Goldman on 02-19-2025 Protein Ql (U) Negative [facility] Violin Mechanic Office Visit Reporton 02-19-2025 Violin Mechanic Office Visit Report [address], [address] [place] [address] OFFICE VISIT Date of Service: 02/19/25 MR#: [id number] Acct: [id number] Name: JIMMY ATWOOD Rep #: [id number] : 1995 Provider: QUITA Tanner ams Age/Sex: 29/F Location: [facility] Status: Signed with Addenda ADDENDUM by Tessa Hearn on 02/19/25 at 1154 Office Procedure Documentation entered by Tessa Hearn 02/19/25 11:54: Immunizations Boostrix Tdap 2.5 Lf unit-8 mcg-5 Lf/0.5 mL intramuscular syringe Performing Provider: Manjula Goldman CNM Performing Location: [facility] Administered by: Tessa Hearn on 02/19/25 11:52 Dose Route Admin Location Dispensed Lot Number Expiration Date 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 Date Name GA/Weeks Outcome Route Bth Weight Gen Labor Lgth Anesthesia Del Locatn Provider FOB 01/23/23 Cm 41 live - full term 9#1oz Male epidural [facility] Narcisa Willard HPI 28 wk ob Details: JIMMY ATWOOD [...] list details Initial Weight: 152 lb Date -???-???-???-???-???-? ??-???-???-???-???-??? -???- EGA Weight BP Urine Prot -? (more content not included)... Normal [facility] Lead, Blood Adult 16+yrson 0 01-31-2025 LEAD,BLD ADULT < 1.0 Normal 0.0-3.4 [facility] Comment on above: Order Comment: Test( s) 994458-Yuda, Blood (Adult) was developed and its performance characteristics determined by [facility]. It has not been cleared or approved by the Food and Drug Administration. Result Comment: Test ing performed by Inductively coupled plasma/Mass Spectrometry. Analysis by inductively coupled plasma/mass spectrometry (ICP/MS) Environmental Exposure: WHO Recommendation <5.0 Occupational Exposure: OSHA Lead Std 40.0 JAMAR 30.0 Detection Limit = 1.0 Performed at: [address] [id number] Cat Sitter: Guzman Darnell PhD, Phone: [phone] Performed By: #### L 8393.3367 #### [facility] [address] [place], [address] Absolute lymphocyte countOrd ered By: Manjula Goldman on 01-29-2025 Lymphocytes Auto (Unsp spec) [#/Vol] 1.80 10*3/uL 0.83-4.51 [facility] Absolute neutrophil countOrd ered By: Manjula Goldman on 01-29-2025 Neutrophils (Bld) [#/Vol] 8.3 10*3/uL High 2.0-7.7 [facility] Automated lymphocyte count a s percentage of total leukocytesOrdered By: Manjula Jones on 01-29-2025 Lymphocytes/100 WBC Auto (Unsp spec) 16.1 % Low 19-41 [facility] Basophil percentageOrdered B y: Manjula Goldman on 01-29-2025 Basophils/100 WBC (Bld) 0.4 % 0-1 [facility] CBC W/Diff, Automatedon 01-19-2024 Absolute Lymph 1.80 X10 3/uL Normal 0.83-4.51 [facility] Comment on above: Performed By: #### L 3890.6006, L100.0100, L506.0400, L509.8002, L501.9520, L501.0250 #### [facility] [facility] [address] [place], [address] Absolute Neut 8.3 X10 3/uL High 2.0-7.7 [facility] Comment on above: Performed By: #### L 3890.6006, L100.0100, L506.0400, L509.8002, L501.9520, L501.0250 #### [facility] [address] [place], [address] Basophils/100 WBC (Bld) 0.4 % Normal 0-1 [facility] Comment on above: Performed By: #### L 3890.6006, L100.0100, L506.0400, L509.8002, L501.9520, L501.0250 #### [facility] [address] [place], [address] Eosinophils/100 WBC (Bld) 1.1 % Normal 0-5 [facility] Comment on above: Performed By: #### L 3890.6006, L100.0100, L506.0400, L509.8002, L501.9520, L501.0250 #### [facility] [address] [place], [address] Erythrocyte distribution width (RBC) [Ratio] 13.2 % Normal 11.6-14.6 [facility] Comment on above: Performed By: #### L 3890.6006, L100.0100, L506.0400, L509.8002, L501.9520, L501.0250 #### [facility] [address] [place], [address] Hematocrit (Bld) [Volume fraction] 31.4 % Low 37-47 [facility] Comment on above: Performed By: #### L 3890.6006, L100.0100, L506.0400, L509.8002, L501.9520, L501.0250 #### [facility] [address] [place], [address] Hemoglobin (Bld) [Mass/Vol] 10.9 g/dL Low 12.0-15.0 [facility] Comment on above: Performed By: #### L 3890.6006, L100.0100, L506.0400, L509.8002, L501.9520, L501.0250 #### [facility] [address] [place], [address] IG% 1.300 High 0.0-0.9 [facility] Comment on above: Result Comment: IG% - Immature Granulocytes (promyelocytes, myelocytes and metamyelocytes) > 1% indicates that a LEFT SHIFT is Present. Performed By: #### L 3890.6006, L100.0100, L506.0400, L509.8002, L501.9520, L501.0250 #### [facility] [address] [place], [address] Lymphocytes/100 WBC (Bld) 16.1 % Low 19-41 [facility] Comment on above: Performed By: #### L 3890.6006, L100.0100, L506.0400, L509.8002, L501.9520, L501.0250 #### [facility] [address] [place], [address] MCH (RBC) [Entitic mass] 32.9 pg High 27.0-32.0 [facility] Comment on above: Performed By: #### L 3890.6006, L100.0100, L506.0400, L509.8002, L501.9520, L501.0250 #### [facility] [address] [place], [address] MCHC (RBC) [Mass/Vol] 34.7 g/dL Normal 32-36 [facility] Comment on above: Performed By: #### L 3890.6006, L100.0100, L506.0400, L509.8002, L501.9520, L501.0250 #### [facility] [address] [place], [address] MCV (RBC) [Entitic vol] 94.9 fL Normal 81-99 [facility] Comment on above: Performed By: #### L 3890.6006, L100.0100, L506.0400, L509.8002, L501.9520, L501.0250 #### [facility] [address] [place], [address] Monocytes/100 WBC (Bld) 7.2 % Normal 0-10 [facility] Comment on above: Performed By: #### L 3890.6006, L100.0100, L506.0400, L509.8002, L501.9520, L501.0250 #### [facility] [address] [place], [address] Neutrophils/100 WBC (Bld) 73.9 % High 47-70 [facility] Comment on above: Performed By: #### L 3890.6006, L100.0100, L506.0400, L509.8002, L501.9520, L501.0250 #### [facility] [address] [place], [address] Nucleated RBC (Bld) [#/Vol] 0 10*3/uL Normal 0-5 [facility] Comment on above: Performed By: #### L 3890.6006, L100.0100, L506.0400, L509.8002, L501.9520, L501.0250 #### [facility] [address] [place], [address] Platelet mean volume (Bld) [Entitic vol] 9.7 fL Normal 6.2-12.0 [facility] Comment on above: Performed By: #### L 3890.6006, L100.0100, L506.0400, L509.8002, L501.9520, L501.0250 #### [facility] [address] [place], [address] Platelets (Bld) [#/Vol] 375 10*3/uL Normal 150-450 [facility] Comment on above: Performed By: #### L 3890.6006, L100.0100, L506.0400, L509.8002, L501.9520, L501.0250 #### [facility] [address] [place], [address] RBC (Bld) [#/Vol] 3.31 10*6/uL Low 4.2-5.[address] [facility] Comment on above: Performed By: #### L 3890.6006, L100.0100, L506.0400, L509.8002, L501.9520, L501.0250 #### [facility] [address] [place], [address] RDW SD 45.6 fl High 35.1-43.9 [facility] Comment on above: Performed By: #### L 3890.6006, L100.0100, L506.0400, L509.8002, L501.9520, L501.0250 #### [facility] [address] [place], [address] WBC (Bld) [#/Vol] 11.2 10*3/uL High 4.4-11.[address] [facility] Comment on above: Performed By: #### L 3890.6006, L100.0100, L506.0400, L509.8002, L501.9520, L501.0250 #### [facility] [address] [place], [address] Eosinophil percentageOrdered By: Manjula Goldman on 01-29-2025 Eosinophils/100 WBC (Bld) 1.1 % 0-5 [facility] Erythrocyte distribution wid th ratioOrdered By: Manjula Goldman on 01-29-2025 Erythrocyte distribution width (RBC) [Ratio] 13.2 % 11.6-14.6 [facility] Erythrocyte distribution wid th standard deviationOrdered By: Manjula Goldman on 01-29-2025 Erythrocyte distribution width (RBC) [Ratio] 45.6 fl High 35.1-43.9 [facility] Glucose Challenge Gest 1H 50 bronwyn 01-29-2025 GLU GEST 50g 1H 116 mg/dL Normal 70-140 [facility] Comment on above: Performed By: #### L 3890.6006, L100.0100, L506.0400, L509.8002, L501.9520, L501.0250 #### [facility] [address] [place], [address] Glucose measurement at 2 tatum rs post-dose gestational glucose tolerance testOrdered By: Manjula Goldman on 01-29-2025 Glucose [Mass/Vol] 116 mg/dL 70-140 [facility] HIVon 01-29-2025 HIV Non-Reactive Normal Nonreactive [facility] Comment on above: Result Comment: Non- Reactive Reactive Repeatedly reactive samples must be confirmed according to CDC recommended confirmatory algorithms. The subresults for either HIVAG or AHIV can be used as an aid in the selection of the confirmation algorithm for reactive samples. Send out specimens with Reactive results to [facility] for confirmation. Order the HIV antibody detection and differentiation: lc#[id number] Performed By: #### L 3890.6006, L100.0100, L506.0400, L509.8002, L501.9520, L501.0250 ####[facility] [id number] [place], [address] Hematocrit Auto (Bld) [Volum e fraction]Ordered By: Manjula Goldman on 01-29-2025 Hematocrit (Bld) [Volume fraction] 31.4 % Low 37-47 [facility] Hemoglobin measurementOrdere d By: Manjula Goldman on 01-29-2025 Hemoglobin (Bld) [Mass/Vol] 10.9 g/dL Low 12.0-15.0 [facility] Immature granulocytes/100 WB C Auto (Bld)Ordered By: Manjula Goldman on 01-29-2025 Immature granulocytes/100 WBC (Bld) 1.300 % High 0.0-0.9 [facility] Comment on above: IG% - Immature Granu locytes (promyelocytes, myelocytes and metamyelocytes) > 1% indicates that a LEFT SHIFT is Present. Laboratory - Chemistry and C hemistry - challengeOrdered By: Carline Bolden on 01-29-2025 Glucose Ql (U) Negative [facility] - UrinalysisOrder ed By: Carline Bolden on 01-29-2025 Protein Ql (U) Negative [facility] MCV (mean corpuscular volume ) determinationOrdered By: Manjula Goldman on 01-29-2025 MCV (RBC) [Entitic vol] 94.9 fL 81-99 [facility] Mean corpuscular hemoglobin (MCH) determinationOrdered By: Manjula Goldman on 01-29-2025 MCH (RBC) [Entitic mass] 32.9 pg High 27.0-32.0 [facility] Mean corpuscular hemoglobin concentration (MCHC) determinationOrdered By: Manjula Goldman on 01-29-2025 MCHC (RBC) [Mass/Vol] 34.7 g/dL 32-36 [facility] Mean platelet volume determi nationOrdered By: Manjula Goldman on 01-29-2025 Platelet mean volume (Bld) [Entitic vol] 9.7 fL 6.2-12.0 [facility] Monocyte percentageOrdered B y: Manjula Goldman on 01-29-2025 Monocytes/100 WBC (Bld) 7.2 % 0-10 [facility] Neutrophil percentageOrdered By: Manjula Goldman on 01-29-2025 Neutrophils/100 WBC (Bld) 73.9 % High 47-70 [facility] No Panel InformationOrdered By: Manjula Goldman on 01-29-2025 HIV (1&2) Antibody Non-Reactive Nonreactive [facility] Comment on above: Non-ReactiveReactive Repeatedly reactive samples must be confirmed according to CDC recommended confirmatory algorithms. The subresults for either HIVAG or AHIV can be used as an aid in the selection of the confirmation algorithm for reactive samples.Send out specimens with Reactive results to [facility] for confirmation.Order the HIV antibody detection and differentiation: #[id number] Nucleated red blood cell per centageOrdered By: Manjula Goldman on 01-29-2025 Nucleated RBC/100 WBC (Bld) [Ratio] 0 % 0-5 [facility] Violin Mechanic Office Visit Reporton 01-29-2025 Violin Mechanic Office Visit Report [facility] [address], [address] [place] [address] OFFICE VISIT Date of Service: 01/29/25 MR#: [id number] Acct: [id number] Name: JIMMY ATWOOD Rep #: [id number] : 1995 Provider: Dr. 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 Date Name GA/Weeks Outcome Route Bth Weight Infant Gen Labor Lgth Anesthesia Del Locatn Provider FOB 01/23/23 Pabon 41 live - full term 9#1oz Male epidural [facility] noellesadonnie Willard HPI 26wk ob/glucose Details: JIMMY ATWOOD [...] list details Initial Weight: 152 lb Date -???-???-???-???-???-? ??-???-???-???-???-??? -???- EGA Weight BP Urine Prot -???-???-???-???-???-? ??-???-???-???-???-??? -???- Glucose FHR FuHt Pres Dilation -???-???-???-???-???-? ??-???-???-???-???-??? -???- Effaced St Visit Note 10/04/24 -???-???-???-???-???-? ??-???-???-???-???-??? -???- 8w 2d 152 lb 6 oz (+6 oz) 124/82 -???-???-???-???-???-? ??-???-???-???-???-??? -???- 171 -???-???-???-???-???-? ??-???-???-???-???-??? -???- KW- (more content not included)... Normal [facility] Platelet countOrdered By: Lasha Goldman on 01-29-2025 Platelets (Bld) [#/Vol] 375 10*3/uL 150-450 [facility] RBC Auto (Bld) [#/Vol]Ordere d By: Manjula Goldman on 01-29-2025 RBC (Bld) [#/Vol] 3.31 10*6/uL Low 4.2-5.[address] [facility] Syphilis Antibodieson 2024 Syphilis Abs Non-Reactive Normal Nonreactive [facility] Comment on above: Performed By: #### L 3890.6006, L100.0100, L506.0400, L509.8002, L501.9520, L501.0250 ####[facility] [id number] [place], [address] T4 Free Directon 01-29-2025 T4 FREE DIRECT 0.90 ng/dL Normal 0.76-1.46 [facility] Comment on above: Performed By: #### L 3890.6006, L100.0100, L506.0400, L509.8002, L501.9520, L501.0250 ####[facility] [id number] [place], [place], [address] T4 freeOrdered By: Manjula mccloud on 01-29-2025 Free T4 [Mass/Vol] 0.90 ng/dL 0.76-1.46 [facility] TSH DL <= 0.005 mIU/L QnOrde red By: Manjula Goldman on 01-29-2025 TSH Qn 1.190 uIU/mL 0.300-4.200 [facility] Thyroid Stim Hormone (TSH)on 01-29-2025 TSH 1.190 uIU/mL Normal 0.300-4.200 [facility] Comment on above: Performed By: #### L 3890.6006, L100.0100, L506.0400, L509.8002, L501.9520, L501.0250 ####[facility] [id number] [facility] [place], [place], [address] White blood cell (WBC) count Ordered By: Manjula Goldman on 01-29-2025 WBC (Bld) [#/Vol] 11.2 10*3/uL High 4.4-11.[address] [facility] Laboratory - Chemistry and C hemistry - challengeOrdered By: Manjula Goldman on 01-01-2025 Glucose Ql (U) Negative [facility] - UrinalysisOrder ed By: Manjula Goldman on 01-01-2025 Protein Ql (U) Negative [facility] Violin Mechanic Office Visit Reporton 01-01-2025 Violin Mechanic Office Visit Report [facility] [address], [address] [place] [address] OFFICE VISIT Date of Service: 01/01/25 MR#: [id number] Acct: [id number] Name: ADANJIMMY GOMESIA Rep #: [id number] : 1995 Provider: QUITA Tanner ams Age/Sex: 29/F Location: [facility] [place] Status: Signed Intake Vital Signs 11/27/24 12:32 01/01/25 11:25 01/01/25 11:30 Height 5 ft 7 in 5 ft 7 in 5 ft 7 in Weight: 167 lb 8 oz BMI 26.2 BP 113/71 Intake Visit Reasons: 21 WEEK OB Plastic Outfitter Required: No Is patient in pain?: No [...] 1 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 Date Name GA/Weeks Outcome Route Bth Weight Infant Gen Labor Lgth Anesthesia Del Locatn Provider FOB 01/23/23 Pabon 41 live - full [facility] 9#[facility] Sudheer HPI 21 WEEK OB Details: JIMMY ATWOOD [...] list details Initial Weight: 152 lb Date -???-???-???-???-???-? ??-???-???-???-???-??? -???- EGA Weight BP Urine Prot -???-???-???-???-???-? ??-???-???-???-???-??? -???- Glucose FHR FuHt Pres Dilation -???-???-???-???-???-? ??-???-???-???-???-??? -???- Effaced St Visit Note 10/04/24 -???-???-???-???-???-? ??-???-???-???-???-??? -???- 8w 2d 152 lb 6 oz (+6 oz) 124/82 -???-???-???-???-???-? ??-???-???-???-???-??? -???- 171 -???-???-???-???-???-? ??-???-???-???-???-??? -???- KW- CRL cons with dates. Declines NIPT. (more content not included)... Normal [facility] - Chemistry and C hemistry - challengeOrdered By: Manjula Goldman on 11-27-2024 Glucose Ql (U) Negative [facility] - UrinalysisOrder ed By: Manjula Goldman on 11-27-2024 Protein Ql (U) Negative [facility] Violin Mechanic Office Visit Reporton 11-27-2024 Violin Mechanic Office Visit Report [facility] [address], [address] [place] [address] OFFICE VISIT Date of Service: 11/27/24 MR#: [id number] Acct: [id number] Name: JIMMY ATWOOD Rep #: [id number] : 1995 Provider: QUITA Tanner ams Age/Sex: 29/F Location: [facility] Status: Signed Intake Vital Signs 10/04/24 14:30 11/26/24 14:17 11/27/24 12:29 11/27/24 12:32 Height 5 ft 7 in 5 ft 7 in 5 ft 7 in 5 ft 7 in Weight: 158 lb 2 oz BMI 24.7 BP 101/67 Intake Visit Reasons: 16wk ob Plastic Outfitter Required: No Is patient in pain?: No [...] 1 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 Date Name GA/Weeks Outcome Route Bth Weight Infant Gen Labor Lgth Anesthesia Del Locatn Provider FOB 01/23/23 Cm 41 live - full term 9#1oz Male epidural [facility] latia Willard HPI 16wk ob Details: JIMMY ATWOOD [...] list details Initial Weight: 152 lb Date -???-???-???-???-???-? ??-???-???-???-???-??? -???- EGA Weight BP Urine Prot -???-???-???-???-???-? ??-???-???-???-???-??? -???- Glucose FHR FuHt Pres Dilation -???-???-???-???-???-? ??-???-???-???-???-??? -???- Effaced St Visit Note 10/04/24 -???-???-???-???-???-? ??-???-???-???-???-??? -???- 8w 2d 152 lb 6 oz (+6 oz) 124/82 -???-???-???-???-???-? ??-???-???-???-???-??? -???- 171 -???-???-???-???-???-? ??-???-???-???-???-??? -???- KW- CRL cons with d (more content not included)... [facility] Special Stain Group IIon Special Stain Group II ----- ---- Patient Age/Sex Location Account Attending Physician ---- JIMMY ATWOOD 29/F LABSPEC [id number] Dr. Ravinder Suazo MD ---- Specimen: [id number] Received: 11/26/24 Status: CARLOS Foley Num: [id number] Spec Type: Fluid Subm Dr: Dr. Ravinder Suazo MD HEADER OPERATION: Fine needle aspiration of right thyroid nodule PRE-OP DIAGNOSIS: Right thyroid nodule TISSUE SUBMITTED: A- Right thyroid nodule ---- DIAGNOSIS CYTOLOGY A. Right thyroid nodule, FNA: * No malignant cells are identified * Benign follicular cells (benign follicular nodule) CYTOLOGY STUDY Slides are reviewed. CYTOLOGY GROSS A. Received is 30 ml of fluid and 4 slides labeled with the patient's name and and designated per the requisition as Right thyroid nodule. Submitted for cytology preparation. Mr 11/27/2024 CPT: 75356 Signed (signature on file) Dr. Lucinda Sutherland, 12/10/24 0852 ---- Normal [facility] Comment on above: Performed By: #### P SSII ####[facility] [address] [place], [place], [id number] Surgery Visit Reporton 11-26 Surgery Visit Report [facility] [address] [place], [place] [address] OFFICE VISIT Date of Service: 11/26/24 MR#: [id number] Acct: [id number] Name: JIMMY ATWOOD Rep #: [id number] : 1995 Provider: Dr. 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 Normal [facility] - Chemistry and C hemistry - challengeOrdered By: Carline Bolden on 11-01-2024 Glucose Ql (U) Negative [facility] - UrinalysisOrder ed By: Carline Bolden on 11-01-2024 Protein Ql (U) Negative [facility] Violin Mechanic Office Visit Reporton 11-01-2024 Violin Mechanic Office Visit Report [facility], [address] [place] [address] OFFICE VISIT Date of Service: 11/01/24 MR#: [id number] Acct: [id number] Name: JIMMY ATWOOD Rep #: [id number] : 1995 Provider: Dr. 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 Date Name GA/Weeks Outcome Route Bth Weight Infant Gen Labor Lgth Anesthesia Del Locatn Provider FOB 01/23/23 Pabon 41 live - full term 9#1oz Male epidural [facility] latia Hutchins Sudheer HPI 12 wk OB Details: JIMMY ATWOOD [...] list details Initial Weight: 152 lb Date -???-???-???-???-???-? ??-???-???-???-???-??? -???- EGA Weight BP Urine Prot -???-???-???-???-???-? ??-???-???-???-???-??? -???- Glucose FHR FuHt Pres Dilation -???-???-???-???-???-? ??-???-???-???-???-??? -???- Effaced St Visit Note 10/04/24 -???-???-???-???-???-? ??-???-???-???-???-??? -???- 8w 2d 152 lb 6 oz (+6 oz) 124/82 -???-???-???-???-???-? ??-???-???-???-???-??? -???- 171 -???-???-???-???-???-? ??-???-???-???-???- (more content not included)... Normal [facility] THYROID PEROXIDASE AB [CCL]o n 10-12-2024 TPO Antibody <3.0 Normal <5.6 [facility] Comment on above: Result Comment: Thyr oid Peroxidase Antibody test is used as an aid in diagnosis of autoimmune thyroid disease. [place] [address] Kahlil Lubin III, M.D. [id number] Performed By: #### 2 11151 #### [facility] [place],[address] [place] [address] T4-FREE (FREE THYROXINE)on 0 10-11-2024 Free T4 [Mass/Vol] 1.08 ng/dL Normal 0.76 - 1.46 [facility] Comment on above: Result Comment: P otential of falsely elevated results when biotin concentrations are > 10 ng/mL. Performed By: #### 2 [id number] #### [facility] [place],[address] [place], [place] [id number] THYROID PEROXIDASE ANTIBODYo n 10-11-2024 TPO Ab Qn [IU]/mL Normal <5.6 [facility] Comment on above: Order Comment: Speci men Type: BLOOD SPECIMEN Ordering Facility: [facility] Address: [address] [place] [address] Result Comment: Thyr oid Peroxidase Antibody test is used as an aid in diagnosis of autoimmune thyroid disease. Clinical correlation is required. Performed By: #### M ICRO #### [facility] CLIA [id number] [address] [place] [address] [place] TSHon 10-11-2024 TSH Qn 0.64 m[IU]/L Normal 0.35 - 3.74 [facility] [place] Comment on above: Performed By: #### 2 [id number] #### [facility] [place],[address] [place], [place] [id number] [place] THYROIDon 10-11-[address] [address] Patient: JIMMY ATWOOD Phone#: : 1995 Age: 29 Gender: F Pt. Type: Out Account: [id number] Location: 052 Ordering: YUDI MÉNDEZ Exam Date: 10/11/2024/13:09 Family Phys: Charge Code: 641465 Physician: Desha Order #: [id number] Dose#: PROCEDURE: THYROID ULTRASOUND COMPARISON: None. INDICATIONS: [...] MD on 10/11/2024 at 16:00 Approved by: Neeut Mata MD on 10/11/2024 at 16:08 Normal [facility] [place] PAP I-G w/rfx hrHPV-Aptimaon 10-09-2024 ADEQ Comment Normal . [facility] Comment on above: Order Comment: Speci men Comment: [id number] Comment: Source.............Cervix;EndocervixSpecimen Comment: Other..............Specimen Comment: No. of containers..01 ThinPrep Vial Result Comment: Sati sfactory for evaluation. No endocervical component is identified. Performed By: #### M 100.2200, L7000.1800, L7400.0353 ####[facility] [address] [place], [place], [id number] COMM . Normal . [facility] Comment on above: Order Comment: Speci men Comment: [id number] Comment: Source.............Cervix;EndocervixSpecimen Comment: Other..............Specimen Comment: No. of containers..01 ThinPrep Vial Performed By: #### M 100.2200, L7000.1800, L7400.0353 ####[facility] [address] [place], [place], [id number] COMMENT Comment Normal . [facility] Comment on above: Order Comment: Specivory men Comment: [id number] Comment: Source.............Cervix;EndocervixSpecimen Comment: Other..............Specimen Comment: No. of containers..01 ThinPrep Vial Result Comment: This liquid based ThinPrep(R) pap test was screened with the use of an image guided system. Performed By: #### M 100.2200, L7000.1800, L7400.0353 ####[facility] [address] [place], [place], [id number] DIAG Comment Normal . [facility] Comment on above: Order Comment: Speci men Comment: [id number] Comment: Source.............Cervix;EndocervixSpecimen Comment: Other..............Specimen Comment: No. of containers..01 ThinPrep Vial Result Comment: NEGA TIVE FOR INTRAEPITHELIAL LESION OR MALIGNANCY. Performed By: #### M 100.2200, L7000.1800, L7400.0353 ####[facility] [address] [place], [place], [address] HPV RFLX Comment Normal . [facility] Comment on above: Order Comment: Speci men Comment: [id number] Comment: Source.............Cervix;EndocervixSpecimen Comment: Other..............Specimen Comment: No. of containers..01 ThinPrep Vial Result Comment: The HPV DNA reflex criteria were not met with this specimen result therefore, no HPV testing was performed. Performed at: [address] [id number] Cat Sitter: Chayo Yi MD, Phone: [phone] Performed By: #### M 100.2200, L7000.1800, L7400.0353 ####[facility] [address] [place], [place], [id number] PAPSMR Comment Normal . [facility] Comment on above: Order Comment: Speci men Comment: [id number] Comment: Source.............Cervix;EndocervixSpecimen Comment: Other..............Specimen Comment: No. of containers..01 ThinPrep Vial Result Comment: The Pap smear is a screening test designed to aid in the detection of premalignant and malignant conditions of the uterine cervix. It is not a diagnostic procedure and should not be used as the sole means of detecting cervical cancer. Both false-positive and false-negative reports do occur. Performed By: #### M 100.2200, L7000.1800, L7400.0353 ####[facility] [address] [place], [place], [id number] PERFORM Comment Normal . [facility] Comment on above: Order Comment: Speci men Comment: [id number] Comment: Source.............Cervix;EndocervixSpecimen Comment: Other..............Specimen Comment: No. of containers..01 ThinPrep Vial Result Comment: Tunde Braun, Screen Examiner (ASCP) Performed By: #### M 100.2200, L7000.1800, L7400.0353 ####[facility] [address] [place], [address] HIV - WCHon 10-08-2024 HIV Non-Reactive Normal Nonreactive [facility] Comment on above: Performed By: #### L 3890.6005 ####[facility] [address] [place], [address] Chlamydia/GC JOSE J aptimaon CHLAMY,NUC ACID Negative Normal Negative [facility] Comment on above: Performed By: #### M 100.2200, L7000.1800, L7400.0353 ####[facility] [address] [place], [address] GC BY NUC ACID Negative Normal Negative [facility] Comment on above: Result Comment: Perf ormed at: =G - [facility] [address] [id number] Cat Sitter: Chayo Yi MD, Phone: [phone] Performed By: #### M 100.2200, L7000.1800, L7400.0353 ####[facility] [address] [place], [address] Urine Cultureon 10-05-2024 URC Culture exhibits no growth. Normal [facility] Comment on above: Performed By: #### M 100.2200, L7000.1800, L7400.0353 ####[facility] [address] [place], [address] Absolute lymphocyte countOrd ered By: Manjula Goldman on 10-04-2024 Lymphocytes Auto (Unsp spec) [#/Vol] 2.15 10*3/uL 0.83-4.51 [facility] Absolute neutrophil countOrd ered By: Manjula Goldman on 10-04-2024 Neutrophils (Bld) [#/Vol] 10.2 10*3/uL High 2.0-7.7 [facility] Automated lymphocyte count a s percentage of total leukocytesOrdered By: Manjula Goldman on 10-04-2024 Lymphocytes/100 WBC Auto (Unsp spec) 15.8 % Low 19-41 [facility] Basophil percentageOrdered B y: Manjula Goldman on 10-04-2024 Basophils/100 WBC (Bld) 0.4 % 0-1 [facility] CBC W/Diff, Automatedon 09-21 Absolute Lymph 2.15 X10 3/uL Normal 0.83-4.51 [facility] Comment on above: Performed By: #### L 3890.6100, L3890.6300, L100.0100, L509.8000, L509.4005, BTS ####[facility] [address] [place], [address] Absolute Neut 10.2 X10 3/uL High 2.0-7.7 [facility] Comment on above: Performed By: #### L 3890.6100, L3890.6300, L100.0100, L509.8000, L509.4005, BTS ####[facility] [address] [place], [address] Basophils/100 WBC (Bld) 0.4 % Normal 0-1 [facility] Comment on above: Performed By: #### L 3890.6100, L3890.6300, L100.0100, L509.8000, L509.4005, BTS ####[facility] [address] [place], [address] Eosinophils/100 WBC (Bld) 0.7 % Normal 0-5 [facility] Comment on above: Performed By: #### L 3890.6100, L3890.6300, L100.0100, L509.8000, L509.4005, BTS ####[facility] [address] [place], [address] Erythrocyte distribution width (RBC) [Ratio] 12.3 % Normal 11.6-14.6 [facility] Comment on above: Performed By: #### L 3890.6100, L3890.6300, L100.0100, L509.8000, L509.4005, BTS ####[facility] [address] [place], [address] Hematocrit (Bld) [Volume fraction] 36.7 % Low 37-47 [facility] Comment on above: Performed By: #### L 3890.6100, L3890.6300, L100.0100, L509.8000, L509.4005, BTS ####[facility] [address] [place], [address] Hemoglobin (Bld) [Mass/Vol] 12.6 g/dL Normal 12.0-15.0 [facility] Comment on above: Performed By: #### L 3890.6100, L3890.6300, L100.0100, L509.8000, L509.4005, BTS ####[facility] [address] [place], [address] IG% 0.700 Normal 0.0-0.9 [facility] Comment on above: Result Comment: IG% - Immature Granulocytes (promyelocytes, myelocytes and metamyelocytes) > 1% indicates that a LEFT SHIFT is Present. Performed By: #### L 3890.6100, L3890.6300, L100.0100, L509.8000, L509.4005, BTS ####[facility] [address] [place], [address] Lymphocytes/100 WBC (Bld) 15.8 % Low 19-41 [facility] Comment on above: Performed By: #### L 3890.6100, L3890.6300, L100.0100, L509.8000, L509.4005, BTS ####[facility] [address] [place], [address] MCH (RBC) [Entitic mass] 31.3 pg Normal 27.0-32.0 [facility] Comment on above: Performed By: #### L 3890.6100, L3890.6300, L100.0100, L509.8000, L509.4005, BTS ####[facility] [address] [place], [address] MCHC (RBC) [Mass/Vol] 34.3 g/dL Normal 32-36 [facility] Comment on above: Performed By: #### L 3890.6100, L3890.6300, L100.0100, L509.8000, L509.4005, BTS ####[facility] [address] [place], [address] MCV (RBC) [Entitic vol] 91.3 fL Normal 81-99 [facility] Comment on above: Performed By: #### L 3890.6100, L3890.6300, L100.0100, L509.8000, L509.4005, BTS ####[facility] [address] [place], [address] Monocytes/100 WBC (Bld) 7.4 % Normal 0-10 [facility] Comment on above: Performed By: #### L 3890.6100, L3890.6300, L100.0100, L509.8000, L509.4005, BTS ####[facility] [address] [place], [address] Neutrophils/100 WBC (Bld) 75.0 % High 47-70 [facility] Comment on above: Performed By: #### L 3890.6100, L3890.6300, L100.0100, L509.8000, L509.4005, BTS ####[facility] [address] [place], [address] Nucleated RBC (Bld) [#/Vol] 0 10*3/uL Normal 0-5 [facility] Comment on above: Performed By: #### L 3890.6100, L3890.6300, L100.0100, L509.8000, L509.4005, BTS ####[facility] [address] [place], [address] Platelet mean volume (Bld) [Entitic vol] 9.6 fL Normal 6.2-12.0 [facility] Comment on above: Performed By: #### L 3890.6100, L3890.6300, L100.0100, L509.8000, L509.4005, BTS ####[facility] [address] [place], [address] Platelets (Bld) [#/Vol] 389 10*3/uL Normal 150-450 [facility] Comment on above: Performed By: #### L 3890.6100, L3890.6300, L100.0100, L509.8000, L509.4005, BTS ####[facility] [address] [place], [address] RBC (Bld) [#/Vol] 4.02 10*6/uL Low 4.2-5.[address] [facility] Comment on above: Performed By: #### L 3890.6100, L3890.6300, L100.0100, L509.8000, L509.4005, BTS ####[facility] [address] [place], [address] RDW SD 41.1 fl Normal 35.1-43.9 [facility] Comment on above: Performed By: #### L 3890.6100, L3890.6300, L100.0100, L509.8000, L509.4005, BTS ####[facility] [address] [place], [address] WBC (Bld) [#/Vol] 13.6 10*3/uL High 4.4-11.[address] [facility] Comment on above: Performed By: #### L 3890.6100, L3890.6300, L100.0100, L509.8000, L509.4005, BTS ####[facility] [address] [place], [address] Cervical or vagninal specime n microscopic examination by cytology stain (reported asOrdered By: Manjula Goldman on 10-04-2024 Cytology report Cyto stain Doc (Cvx/Vag) Comment . [facility] Comment on above: The Pap smear is [...] JOSE J+probe Ql (Unsp spec) Negative Negative [facility] Eosinophil percentageOrdered By: Manjula Goldman on 10-04-2024 Eosinophils/100 WBC (Bld) 0.7 % 0-5 [facility] Erythrocyte distribution wid th ratioOrdered By: Manjula Goldman on 10-04-2024 Erythrocyte distribution width (RBC) [Ratio] 12.3 % 11.6-14.6 [facility] Erythrocyte distribution wid th standard deviationOrdered By: Manjula Goldman on 10-04-2024 Erythrocyte distribution width (RBC) [Ratio] 41.1 fl 35.1-43.9 [facility] HIV 1 and HIV-2 antibody ass ay with HIV-1 p24 antigen detectionOrdered By: Manjula Goldman on 10-04-2024 HIV 1+2 Ab+HIV1 p24 Ag IA Ql Non-Reactive Nonreactive [facility] Hematocrit Auto (Bld) [Volum e fraction]Ordered By: Manjula Goldman on 10-04-2024 Hematocrit (Bld) [Volume fraction] 36.7 % Low 37-47 [facility] Hemoglobin measurementOrdere d By: Manjula Goldman on 10-04-2024 Hemoglobin (Bld) [Mass/Vol] 12.6 g/dL 12.0-15.0 [facility] Hepatitis B Surface Antigeno n 10-04-2024 HEP B Surf Ag Non-Reactive Normal Nonreactive [facility] Comment on above: Order Comment: Reaso n for Exam: Performed By: #### L 3890.6100, L3890.6300, L100.0100, L509.8000, L509.4005, BTS ####[facility] [address] [facility] [place], [place], [id number] Hepatitis C Antibodyon 10-04 Hepatitis C AB Non-Reactive Normal Nonreactive [facility] Comment on above: Order Comment: Reaso n for Exam: Result Comment: Non Reactive: < 0.8 Equivocal: >/= 0.8 to < 1.0 Reactive: >/= 1.0 The CDC requires that a reactive/equivocal HCV antibody result be sent out for confirmation. HCV Quant by PCR testing. Performed By: #### L 3890.6100, L3890.6300, L100.0100, L509.8000, L509.4005, BTS ####[facility] [address] [facility] [place], [place], [id number] Immature granulocytes/100 WB C Auto (Bld)Ordered By: Manjula Goldman on 10-04-2024 Immature granulocytes/100 WBC (Bld) 0.700 % 0.0-0.9 [facility] Comment on above: IG% - Immature Granu locytes (promyelocytes, myelocytes and metamyelocytes) > 1% indicates that a LEFT SHIFT is Present. L509.8000on 10-04-2024 Syphilis Abs Non-Reactive Normal [facility] Comment on above: Order Comment: Reaso n for Exam: Performed By: #### L 3890.6100, L3890.6300, L100.0100, L509.8000, L509.4005, BTS ####[facility] [address] [place], [address] Laboratory - CytologyOrdered By: Manjula Goldman on 10-04-2024 Banking Consultant Cyto stain Nom (Cvx/Vag) [ID] Comment . [facility] Comment on above: Margarita Manzo-Ab crook, Screen Examiner (ASCP) Laboratory - Miscellaneous t estsOrdered By: Manjula Goldman on 10-04-2024 Service comment (Unsp spec) [Interp] . . [facility] MCV (mean corpuscular volume ) determinationOrdered By: Manjula Goldman on 10-04-2024 MCV (RBC) [Entitic vol] 91.3 fL 81-99 [facility] Mean corpuscular hemoglobin (MCH) determinationOrdered By: Manjula Goldman on 10-04-2024 MCH (RBC) [Entitic mass] 31.3 pg 27.0-32.0 [facility] Mean corpuscular hemoglobin concentration (MCHC) determinationOrdered By: Manjula Goldman on 10-04-2024 MCHC (RBC) [Mass/Vol] 34.3 g/dL 32-36 [facility] Mean platelet volume determi nationOrdered By: Manjula Goldman on 10-04-2024 Platelet mean volume (Bld) [Entitic vol] 9.6 fL 6.2-12.0 [facility] Monocyte percentageOrdered B y: Manjula Goldman on 10-04-2024 Monocytes/100 WBC (Bld) 7.4 % 0-10 [facility] Neisseria gonorrhoeae nuclei c acid detection by amplified probe techniqueOrdered By: Manjula Goldman on 10-04-2024 N. gonorrhoeae DNA JOSE J+probe Ql (Unsp spec) Negative Negative [facility] Comment on above: Performed at: =[address] [id number] Director: Chayo Yi MD, Phone: [phone] Neutrophil percentageOrdered By: Manjula Goldman on 10-04-2024 Neutrophils/100 WBC (Bld) 75.0 % High 47-70 [facility] No Panel InformationOrdered By: Manjula Goldman on 10-04-2024 Pap Smear Specimen Adequacy Comment . [facility] Comment on above: Satisfactory for neetu luation. No endocervical component is identified. Nucleated red blood cell per centageOrdered By: Manjula Goldman on 10-04-2024 Nucleated RBC/100 WBC (Bld) [Ratio] 0 % 0-5 [facility] Violin Mechanic Office Visit Reporton 10-04-2024 Violin Mechanic Office Visit Report 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 Date Name GA/Weeks Outcome Route Bth Weight Infant Gen Labor Lgth Anesthesia Del Locatn Provider FOB 01/23/23 Cm 41 live - full term 9#1oz Male epidural [facility] Narcisa Hutchins Sudheer HPI NOB LMP 08/03 Details: JIMMY ATWOOD [...] list details Initial Weight: 152 lb Date -???-???-???-???-???-? ??-???-???-???-???-??? -???- EGA Weight BP Urine Prot -???-???-???-???-???-? ??-???-???-???-???-??? -???- Glucose FHR FuHt Pres Dilation -???-???-???-???-???-? ??-???-???-???-???-??? -???- Effaced St Visit Note 10/04/24 -???-???-???-???-???-? ??-???-???-???-???-??? -???- 8w 2d 152 lb 6 oz (+6 oz) 124/82 -???-???-???-???-???-? ??-???-???-???-???-??? -???- 171 (more content not included)... Normal [facility] Platelet countOrdered By: Lasha Goldman on 10-04-2024 Platelets (Bld) [#/Vol] 389 10*3/uL 150-450 [facility] RBC Auto (Bld) [#/Vol]Ordere d By: Manjula Goldman on 10-04-2024 RBC (Bld) [#/Vol] 4.02 10*6/uL Low 4.2-5.[address] [facility] Rubella IgGon 10-04-2024 Rubella IgG Reactive Normal Nonreactive [facility] Comment on above: Order Comment: Reaso n for Exam: Result Comment: Anti body Results Interpretation of Immune Status Non Reactive Presumed Non-Immune Equivocal Equivocal Reactive Presumed Immune Performed By: #### L 3890.6100, L3890.6300, L100.0100, L509.8000, L509.4005, BTS ####[facility] [address] [place], [address] Serum Treponema species anti body detectionOrdered By: Manjula Goldman on 10-04-2024 Treponema sp Ab Ql (S) Non-Reactive [facility] Type AND Screenon 10-04-2024 Ab SCREEN GEL Negative Normal [facility] Comment on above: Order Comment: PN Performed By: #### L 3890.6100, L3890.6300, L100.0100, L509.8000, L509.4005, BTS ####[facility] [address] [place], [address] ABO and Rh group Nom (Bld) Blood group O Rh(D) positive Normal [facility] Comment on above: Order Comment: PN Performed By: #### L 3890.6100, L3890.6300, L100.0100, L509.8000, L509.4005, BTS ####[facility] [address] [place], [address] Urine cultureOrdered By: Jared Goldman on 10-04-2024 Bacteria identified Cx Nom (U) Culture exhibits no growth. [facility] White blood cell (WBC) count Ordered By: Manjula Goldman on 10-04-2024 WBC (Bld) [#/Vol] 13.6 10*3/uL High 4.4-11.[address] [facility] Absolute lymphocyte countOrd ered By: Roxannlinda Michaels on 06-29-2023 Lymphocytes Auto (Unsp spec) [#/Vol] 2.73 10*3/uL 0.83-4.51 [facility] Basophil percentageOrdered B y: Roxann Michaels on 06-29-2023 Basophils/100 WBC (Bld) 1.1 % 0-1 [facility] Bilirubin [Mass/Vol] 1.50 mg/dL 0.20-1.00 [facility] Comment on above: For patients on eltr ombopag therapy, use of Dimension Decherd TBIL is not recommended. Chloride [Moles/Vol] 106 mmol/L 98-107 [facility] Eosinophils/100 WBC (Bld) 5.4 % 0-5 [facility] Glucose [Mass/Vol] 89 mg/dL 74-106 [facility] Neutrophils (Bld) [#/Vol] 3.4 10*3/uL 2.0-7.7 [facility] Neutrophils/100 WBC (Bld) 46.9 % 47-70 [facility] Potassium [Moles/Vol] 3.6 mmol/L 3.5-5.1 [facility] Protein [Mass/Vol] 7.4 g/dL 6.4-8.2 [facility] Sodium [Moles/Vol] 140 mmol/L 136-145 [facility] WBC (Bld) [#/Vol] 7.2 10*3/uL 4.4-11.0 [facility] Blood erythrocytes count (nu mber/volume)Ordered By: Roxann Michaels on 06-29-2023 RBC (Bld) [#/Vol] 4.40 10*6/uL 4.2-5.[address] [facility] Blood hemoglobin measurement (mass/volume)Ordered By: Roxann Michaels on 06-29-2023 Hemoglobin (Bld) [Mass/Vol] 13.3 g/dL 12.0-15.0 [facility] Blood lymphocytes/100 leukoc ytesOrdered By: Roxann Michaels on 06-29-2023 Lymphocytes/100 WBC (Bld) 37.7 % 19-41 [facility] Blood monocytes/100 leukocyt esOrdered By: Roxann Michaels on 06-29-2023 Monocytes/100 WBC (Bld) 8.6 % 0-10 [facility] Blood platelet mean volumeOr dered By: Roxann Michaels on 06-29-2023 Platelet mean volume (Bld) [Entitic vol] 9.1 fL 6.2-12.0 [facility] Determination of erythrocyte mean corpuscular volume (MCV)Ordered By: Roxann Michaels on 06-29-2023 MCV (RBC) [Entitic vol] 90.7 fL 81-99 [facility] Hematocrit Auto (Bld) [Volum e fraction]Ordered By: Roxann Michaels on 06-29-2023 Hematocrit (Bld) [Volume fraction] 39.9 % 37-47 [facility] Laboratory - Chemistry and C hemistry - challengeOrdered By: Roxannlinda Michaels on 06-29-2023 ALP [Catalytic activity/Vol] 106 U/L 45-117 [facility] ALT [Catalytic activity/Vol] 18 U/L 13-56 [facility] CO2 [Moles/Vol] 28.0 mmol/L 21.0-32.0 [facility] Globulin (S) [Mass/Vol] 3.6 g/dL 2.2-4.2 [facility] T4 [Mass/Vol] 8.9 ug/dL 4.8-13.9 [facility] Urea nitrogen/Creatinine [Mass ratio] 17.8 mg/mg 10-20 [facility] Laboratory - Hematology and Cell countsOrdered By: Roxann Michaels on 06-29-2023 Erythrocyte distribution width (RBC) [Entitic vol] 40.7 fL 35.1-43.9 [facility] Erythrocyte distribution width (RBC) [Ratio] 12.2 % 11.6-14.6 [facility] Immature granulocytes/100 WBC (Bld) 0.300 % 0.0-0.9 [facility] Comment on above: IG% - Immature Granu locytes (promyelocytes, myelocytes and metamyelocytes) > 1% indicates that a LEFT SHIFT is Present. MCH (RBC) [Entitic mass] 30.2 pg 27.0-32.0 [facility] Nucleated RBC/100 WBC (Bld) [Ratio] 0 % 0-5 [facility] MCHC Auto (RBC) [Mass/Vol]Or dered By: Roxann Michaels on 06-29-2023 MCHC (RBC) [Mass/Vol] 33.3 g/dL 32-36 [facility] Mitotic spindle apparatus Ab [Titer] in Serum or PlasmaOrdered By: Roxann Michaels on 06-29-2023 Mitotic spindle apparatus Ab [Titer] Not Reportable [facility] No Panel InformationOrdered By: Roxann Michaels on 06-29-2023 SARAI Nuclear Membrane Pattern Not Reportable [facility] Estimated GFR (MDRD) Amer 122 mL/min >60 [facility] Comment on above: GFR Calc Estimated GFR (MDRD) Non-Af Amer 101 mL/min >60 [facility] Comment on above: Non- GFR Calc Thyroid Stimulating Hormone (TSH) 1.55 uIU/mL 0.358-3.74 [facility] Total Triiodothyronine 1.35 ng/mL 0.6-1.81 [facility] Platelets bldOrdered By: Ermias Michaels on 06-29-2023 Platelets (Bld) [#/Vol] 404 10*3/uL 150-450 [facility] Serum midbody antibody titer by immunofluorescenceOrdered By: Roxann Michaels on 06-29-2023 Midbody Ab IF (S) [Titer] Not Reportable [facility] Serum multiple nuclear dot p attern antinuclear IgG antibody (SARAI) titer by immunofluoOrdered By: Roxann Michaels on 06-29-2023 Multiple nuclear dots nuclear IgG pattern IF (S) [Titer] Not Reportable [facility] Serum neuronal nuclear antib arvin detection by immunofluorescenceOrdered By: Roxann Michaels on 06-29-2023 Neuronal nuclear Ab IF Ql (S) Not Reportable [facility] Serum nuclear antibody patte rn homogenous titer by immunofluorescenceOrdered By: Roxann Michaels on 06-29-2023 Homogenous nuclear Ab pattern IF (S) [Titer] Not Reportable [facility] Serum nuclear antibody titer by immunofluorescenceOrdered By: Roxann Michaels on 06-29-2023 Nuclear Ab IF (S) [Titer] Negative . [facility] Comment on above: Negative <1:80 Borde rline 1:80 Positive >1:80ICAP nomenclature: AC-0For more information about Hep-2 cell patterns useANApatterns.org, the official website for theInternational Consensus on Antinuclear Antibody (SARAI)Patterns (ICAP).Performed at: [facility] [address] [id number] Director: Guzman Darnell PhD, Phone: [phone] Serum or plasma albumin norma urement (mass/volume)Ordered By: Roxann Michaels on 06-29-2023 Albumin [Mass/Vol] 3.8 g/dL 3.2-5.0 [facility] Serum or plasma albumin/glob ulin mass ratioOrdered By: Roxann Michaels on 06-29-2023 Albumin/Globulin [Mass ratio] 1.1 {ratio} 0.9-2.4 [facility] Serum or plasma calcium norma urement (mass/volume)Ordered By: Roxann Michaels on 06-29-2023 Calcium [Mass/Vol] 9.0 mg/dL 8.5-10.1 [facility] Serum or plasma creatinine m easurement (mass/volume)Ordered By: Roxann Michaels on 06-29-2023 Creatinine [Mass/Vol] 0.73 mg/dL 0.55-1.02 [facility] Comment on above: The validity of the calculated GFR & GFRAA in patients over 70 years has not been determined. Clinical correlation is essential. Serum or plasma ferritin shekhar surement (mass/volume)Ordered By: Roxann Michaels on 06-29-2023 Ferritin [Mass/Vol] 25 ng/mL 8-[address] [facility] Serum or plasma thyroperoxid ase antibody assay (units/volume)Ordered By: Roxann Michaels on 06-29-2023 TPO Ab Qn [IU]/mL 0-34 [facility] Comment on above: Performed at: [facility] [address] [id number] Director: Guzman Darnell PhD, Phone: [phone] Serum or plasma urea nitroge n measurement (mass/volume)Ordered By: Roxann Michaels on 06-29-2023 Urea nitrogen [Mass/Vol] 13 mg/dL 7-18 [facility] Serum proliferating cell nuc lear antigen (PCNA) antibody titer by immunofluorescenceOrdered By: Roxann Michaels on 06-29-2023 PCNA extractable nuclear Ab IF (S) [Titer] Not Reportable [facility] Serum speckled nuclear antib arvin pattern titerOrdered By: Roxann Michaels on 06-29-2023 Speckled nuclear Ab pattern (S) [Titer] Not Reportable [facility] Thin prep Papanicolaou smear with manual screeningOrdered By: Roxann Michaels on 06-29-2023 Thin prep Papanicolaou smear with manual screening 9 U/L 15-37 [facility] Thin prep Papanicolaou smear with manual screening 6 5-15 [facility] Thin prep Papanicolaou smear with manual screening Not Reportable [facility] Glucose Glucometer (BldC) [M ass/Vol]Ordered By: Payal Hutchins on 01-24-2023 Glucose [Mass/Vol] 86 mg/dL 74-106 [facility] Comment on above: MANAGEMENT OF PATIEN T CARE PER NURSING PROTOCOL Absolute lymphocyte countOrd ered By: Dr. Gay on 01-23-2023 Lymphocytes Auto (Unsp spec) [#/Vol] 1.56 10*3/uL 0.83-4.51 [facility] Basophil percentageOrdered B y: Dr. Gay on 01-23-2023 Basophils/100 WBC (Bld) 0.3 % 0-1 [facility] Eosinophils/100 WBC (Bld) 0.7 % 0-5 [facility] Neutrophils (Bld) [#/Vol] 6.4 10*3/uL 2.0-7.7 [facility] Neutrophils/100 WBC (Bld) 72.8 % 47-70 [facility] WBC (Bld) [#/Vol] 8.7 10*3/uL 4.4-11.0 [facility] Blood erythrocytes count (nu mber/volume)Ordered By: Dr. Gay on 01-23-2023 RBC (Bld) [#/Vol] 3.62 10*6/uL 4.2-5.[address] [facility] Blood hemoglobin measurement (mass/volume)Ordered By: Dr. Gay on 01-23-2023 Hemoglobin (Bld) [Mass/Vol] 11.1 g/dL 12.0-15.0 [facility] Blood lymphocytes/100 leukoc ytesOrdered By: Dr. Gay on 01-23-2023 Lymphocytes/100 WBC (Bld) 17.9 % 19-41 [facility] Blood monocytes/100 leukocyt esOrdered By: Dr. Gay on 01-23-2023 Monocytes/100 WBC (Bld) 7.3 % 0-10 [facility] Blood platelet mean volumeOr dered By: Dr. Gay on 01-23-2023 Platelet mean volume (Bld) [Entitic vol] 11.0 fL 6.2-12.0 [facility] Determination of erythrocyte mean corpuscular volume (MCV)Ordered By: Dr. Gay on 01-23-2023 MCV (RBC) [Entitic vol] 92.8 fL 81-99 [facility] Hematocrit Auto (Bld) [Volum e fraction]Ordered By: Dr. Gay on 01-23-2023 Hematocrit (Bld) [Volume fraction] 33.6 % 37-47 [facility] Laboratory - Hematology and Cell countsOrdered By: Dr. Gay on 01-23-2023 Erythrocyte distribution width (RBC) [Entitic vol] 48.1 fL 35.1-43.9 [facility] Erythrocyte distribution width (RBC) [Ratio] 14.3 % 11.6-14.6 [facility] Immature granulocytes/100 WBC (Bld) 1.000 % 0.0-0.9 [facility] Comment on above: IG% - Immature Granu locytes (promyelocytes, myelocytes and metamyelocytes) > 1% indicates that a LEFT SHIFT is Present. MCH (RBC) [Entitic mass] 30.7 pg 27.0-32.0 [facility] Nucleated RBC/100 WBC (Bld) [Ratio] 0 % 0-5 [facility] MCHC Auto (RBC) [Mass/Vol]Or dered By: Dr. Gay on 01-23-2023 MCHC (RBC) [Mass/Vol] 33.0 g/dL 32-36 [facility] Platelets bldOrdered By: Dr. Gay on 01-23-2023 Platelets (Bld) [#/Vol] 251 10*3/uL 150-450 [facility] Serum Treponema species anti body detectionOrdered By: Dr. Gay on 01-23-2023 Treponema sp Ab Ql (S) Non-Reactive [facility] Laboratory - Chemistry and C hemistry - challengeon 01-18-2023 Glucose Ql (U) Negative [facility] Laboratory - Urinalysison Protein Ql (U) Trace [facility] Laboratory - Chemistry and C hemistry - challengeon 01-09-2023 Glucose Ql (U) Negative [facility] Laboratory - Urinalysison Protein Ql (U) Negative [facility] Laboratory - Chemistry and C hemistry - challengeon 01-03-2023 Glucose Ql (U) Negative [facility] Laboratory - Urinalysison Protein Ql (U) Negative [facility] Laboratory - Chemistry and C hemistry - challengeon 12-28-2022 Glucose Ql (U) Negative [facility] Laboratory - Urinalysison Protein Ql (U) Negative [facility] No Panel InformationOrdered By: Dr. Bolden on 12-24-2022 Group B Streptococcus Culture Streptococcus agalactiae (B) [facility] Laboratory - Chemistry and C hemistry - challengeon 12-20-2022 Glucose Ql (U) Negative [facility] Laboratory - Urinalysison Protein Ql (U) Negative [facility] Laboratory - Chemistry and C hemistry - challengeon 12-07-2022 Glucose Ql (U) Negative [facility] Laboratory - Urinalysison Protein Ql (U) Negative [facility] Absolute lymphocyte countOrd ered By: Tania Gutiérrez on 11-22-2022 Lymphocytes Auto (Unsp spec) [#/Vol] 1.74 10*3/uL 0.83-4.51 [facility] Basophil percentageOrdered B y: Tania Gutiérrez on 11-22-2022 Basophils/100 WBC (Bld) 0.5 % 0-1 [facility] Eosinophils/100 WBC (Bld) 0.7 % 0-5 [facility] Neutrophils (Bld) [#/Vol] 7.0 10*3/uL 2.0-7.7 [facility] Neutrophils/100 WBC (Bld) 70.7 % 47-70 [facility] WBC (Bld) [#/Vol] 9.9 10*3/uL 4.4-11.0 [facility] Blood erythrocytes count (nu mber/volume)Ordered By: Tania Gutiérrez on 11-22-2022 RBC (Bld) [#/Vol] 3.52 10*6/uL 4.2-5.[address] [facility] Blood hemoglobin measurement (mass/volume)Ordered By: Tania Gutiérrez on 11-22-2022 Hemoglobin (Bld) [Mass/Vol] 11.1 g/dL 12.0-15.0 [facility] Blood lymphocytes/100 leukoc ytesOrdered By: Tanai Gutiérrez on 11-22-2022 Lymphocytes/100 WBC (Bld) 17.6 % 19-41 [facility] Blood monocytes/100 leukocyt esOrdered By: Tania Gutiérrez on 11-22-2022 Monocytes/100 WBC (Bld) 9.2 % 0-10 [facility] Blood platelet mean volumeOr dered By: Tania Gutiérrez on 11-22-2022 Platelet mean volume (Bld) [Entitic vol] 9.6 fL 6.2-12.0 [facility] Determination of erythrocyte mean corpuscular volume (MCV)Ordered By: Tania Gutiérrez on 11-22-2022 MCV (RBC) [Entitic vol] 96.0 fL 81-99 [facility] Hematocrit Auto (Bld) [Volum e fraction]Ordered By: Tania Gutiérrez on 11-22-2022 Hematocrit (Bld) [Volume fraction] 33.8 % 37-47 [facility] Laboratory - Chemistry and C hemistry - challengeon 11-22-2022 Glucose Ql (U) Negative [facility] Laboratory - Hematology and Cell countsOrdered By: Tania Gutiérrez on 11-22-2022 Erythrocyte distribution width (RBC) [Entitic vol] 49.7 fL 35.1-43.9 [facility] Erythrocyte distribution width (RBC) [Ratio] 14.2 % 11.6-14.6 [facility] Immature granulocytes/100 WBC (Bld) 1.300 % 0.0-0.9 [facility] Comment on above: IG% - Immature Granu locytes (promyelocytes, myelocytes and metamyelocytes) > 1% indicates that a LEFT SHIFT is Present. MCH (RBC) [Entitic mass] 31.5 pg 27.0-32.0 [facility] Nucleated RBC/100 WBC (Bld) [Ratio] 0 % 0-5 [facility] Laboratory - Urinalysison Protein Ql (U) Negative [facility] MCHC Auto (RBC) [Mass/Vol]Or dered By: Tania Gutiérrez on 11-22-2022 MCHC (RBC) [Mass/Vol] 32.8 g/dL 32-36 [facility] Platelets bldOrdered By: Ameena Gutiérrez on 11-22-2022 Platelets (Bld) [#/Vol] 293 10*3/uL 150-450 [facility] Laboratory - Chemistry and C hemistry - challengeon 11-09-2022 Glucose Ql (U) Negative [facility] Laboratory - Urinalysison Protein Ql (U) Negative [facility] Quantitative serum or plasma 3 hour gestational glucose tolerance panelOrdered By: Tania Gutiérrez on 10-31-2022 Glucose tolerance 3 hours gestational panel See comment [facility] Comment on above: FASTING 89 Col: 10/19 11/10 [id number] TOLERANCE TEST FOR Reference Interval GESTATIONAL DIABETES Fasting <105 mg/dL 1 hour <190 mg/dl 2 hour <165 mg/dl 3 hour <145 mg/dl Absolute lymphocyte countOrd ered By: Dr. Gay on 10-27-2022 Lymphocytes Auto (Unsp spec) [#/Vol] 1.34 10*3/uL 0.83-4.51 [facility] Basophil percentageOrdered B y: Dr. Gay on 10-27-2022 Basophils/100 WBC (Bld) 0.3 % 0-1 [facility] Eosinophils/100 WBC (Bld) 0.7 % 0-5 [facility] Neutrophils (Bld) [#/Vol] 7.5 10*3/uL 2.0-7.7 [facility] Neutrophils/100 WBC (Bld) 76.1 % 47-70 [facility] WBC (Bld) [#/Vol] 9.9 10*3/uL 4.4-11.0 [facility] Blood erythrocytes count (nu mber/volume)Ordered By: Dr. Gay on 10-27-2022 RBC (Bld) [#/Vol] 3.14 10*6/uL 4.2-5.[address] [facility] Blood hemoglobin measurement (mass/volume)Ordered By: Dr. Gay on 10-27-2022 Hemoglobin (Bld) [Mass/Vol] 10.3 g/dL 12.0-15.0 [facility] Blood lymphocytes/100 leukoc ytesOrdered By: Dr. Gay on 10-27-2022 Lymphocytes/100 WBC (Bld) 13.5 % 19-41 [facility] Blood monocytes/100 leukocyt esOrdered By: Dr. Gay on 10-27-2022 Monocytes/100 WBC (Bld) 7.5 % 0-10 [facility] Blood platelet mean volumeOr dered By: Dr. Gay on 10-27-2022 Platelet mean volume (Bld) [Entitic vol] 9.4 fL 6.2-12.0 [facility] Determination of erythrocyte mean corpuscular volume (MCV)Ordered By: Dr. Gay on 10-27-2022 MCV (RBC) [Entitic vol] 94.9 fL 81-99 [facility] Gestational diabetes screen 1-hour screen with 50g oral glucose loadOrdered By: Dr. Gay on 10-27-2022 Glucose 1 Hr post 50 g glucose PO [Mass/Vol] 149 mg/dL 70-140 [facility] HIV 1 and HIV-2 antibody ass ay with HIV-1 p24 antigen detectionOrdered By: Dr. Gay on 10-27-2022 HIV 1+2 Ab+HIV1 p24 Ag IA Ql Non-Reactive Nonreactive [facility] Hematocrit Auto (Bld) [Volum e fraction]Ordered By: Dr. Gay on 10-27-2022 Hematocrit (Bld) [Volume fraction] 29.8 % 37-47 [facility] Laboratory - Chemistry and C hemistry - challengeon 10-27-2022 Glucose Ql (U) Negative [facility] Laboratory - Hematology and Cell countsOrdered By: Dr. Gay on 10-27-2022 Erythrocyte distribution width (RBC) [Entitic vol] 44.5 fL 35.1-43.9 [facility] Erythrocyte distribution width (RBC) [Ratio] 13.2 % 11.6-14.6 [facility] Immature granulocytes/100 WBC (Bld) 1.900 % 0.0-0.9 [facility] Comment on above: IG% - Immature Granu locytes (promyelocytes, myelocytes and metamyelocytes) > 1% indicates that a LEFT SHIFT is Present. MCH (RBC) [Entitic mass] 32.8 pg 27.0-32.0 [facility] Nucleated RBC/100 WBC (Bld) [Ratio] 0 % 0-5 [facility] Laboratory - Urinalysison Protein Ql (U) Negative [facility] MCHC Auto (RBC) [Mass/Vol]Or dered By: Dr. Gay on 10-27-2022 MCHC (RBC) [Mass/Vol] 34.6 g/dL 32-36 [facility] Platelets bldOrdered By: Dr. Gay on 10-27-2022 Platelets (Bld) [#/Vol] 321 10*3/uL 150-450 [facility] Serum Treponema species anti body detectionOrdered By: Dr. Gay on 10-27-2022 Treponema sp Ab Ql (S) Non-Reactive [facility] Laboratory - Chemistry and C hemistry - challengeon 10-03-2022 Glucose Ql (U) Negative [facility] Laboratory - Urinalysison Protein Ql (U) Negative [facility] Laboratory - Chemistry and C hemistry - challengeon 09-05-2022 Glucose Ql (U) Negative [facility] Laboratory - Urinalysison Protein Ql (U) Negative [facility] Laboratory - Chemistry and C hemistry - challengeon 08-03-2022 Glucose Ql (U) Negative [facility] Laboratory - Urinalysison Protein Ql (U) Negative [facility] Absolute lymphocyte counton 07-04-2022 Lymphocytes Auto (Unsp spec) [#/Vol] 1.95 10*3/uL 0.83-4.51 [facility] Work Phone: Basophil percentageon 2021 Basophils/100 WBC (Bld) 0.5 % 0-1 [facility] Work Phone: Bilirubin [Mass/Vol] 0.90 mg/dL 0.20-1.00 [facility] Work Phone: Comment on above: For patients on eltr ombopag therapy, use of Dimension Decherd TBIL is not recommended. Eosinophils/100 WBC (Bld) 1.3 % 0-5 [facility] Work Phone: Neutrophils (Bld) [#/Vol] 7.3 10*3/uL 2.0-7.7 [facility] Work Phone: Neutrophils/100 WBC (Bld) 70.0 % 47-70 [facility] Work Phone: WBC (Bld) [#/Vol] 10.5 10*3/uL 4.4-11.[address] [facility] Work Phone: Blood erythrocytes count (nu mber/volume)on 07-04-2022 RBC (Bld) [#/Vol] 3.77 10*6/uL 4.2-5.[address] [facility] Work Phone: Blood hemoglobin measurement (mass/volume)on 07-04-2022 Hemoglobin (Bld) [Mass/Vol] 12.4 g/dL 12.0-15.0 [facility] Work Phone: Blood lymphocytes/100 leukoc yteson 07-04-2022 Lymphocytes/100 WBC (Bld) 18.7 % 19-41 [facility] Work Phone: Blood monocytes/100 leukocyt eson 07-04-2022 Monocytes/100 WBC (Bld) 9.0 % 0-10 [facility] Work Phone: Blood platelet mean volumeon 07-04-2022 Platelet mean volume (Bld) [Entitic vol] 9.6 fL 6.2-12.0 [facility] Work Phone: Determination of erythrocyte mean corpuscular volume (MCV)on 07-04-2022 MCV (RBC) [Entitic vol] 92.6 fL 81-99 [facility] Work Phone: Direct bilirubinon Bilirubin.direct [Mass/Vol] 0.26 mg/dL 0.00-0.30 [facility] Work Phone: HIV 1 and HIV-2 antibody ass ay with HIV-1 p24 antigen detectionon 07-04-2022 HIV 1+2 Ab+HIV1 p24 Ag IA Ql Non-Reactive Nonreactive [facility] Work Phone: Hematocrit Auto (Bld) [Volum e fraction]on 07-04-2022 Hematocrit (Bld) [Volume fraction] 34.9 % 37-47 [facility] Work Phone: Laboratory - Chemistry and C hemistry - challengeon 07-04-2022 Glucose Ql (U) Negative [facility] Work Phone: Laboratory - Hematology and Cell countson 07-04-2022 Erythrocyte distribution width (RBC) [Entitic vol] 43.5 fL 35.1-43.9 [facility] Work Phone: Erythrocyte distribution width (RBC) [Ratio] 13.0 % 11.6-14.6 [facility] Work Phone: Immature granulocytes/100 WBC (Bld) 0.500 % 0.0-0.9 [facility] Work Phone: Comment on above: IG% - Immature Granu locytes (promyelocytes, myelocytes and metamyelocytes) > 1% indicates that a LEFT SHIFT is Present. MCH (RBC) [Entitic mass] 32.9 pg 27.0-32.0 [facility] Work Phone: Nucleated RBC/100 WBC (Bld) [Ratio] 0 % 0-5 [facility] Work Phone: Laboratory - Urinalysison Protein Ql (U) Negative [facility] Work Phone: MCHC Auto (RBC) [Mass/Vol]on 07-04-2022 MCHC (RBC) [Mass/Vol] 35.5 g/dL 32-36 [facility] Work Phone: No Panel Informationon 07-04 Hepatitis B Surface Antigen Non-Reactive Nonreactive [facility] Work Phone: Hepatitis C Antibody Non-Reactive Nonreactive [facility] Work Phone: Comment on above: Non Reactive: < 0.8 Equivocal: >/= 0.8 to < 1.0 Reactive: >/= 1.0The CDC recommends that a reactive/equivocal HCV antibody result be followed up by the HCV Nucleic Acid Amplificationtest (345392) Rubella IgG Antibody Reactive Nonreactive [facility] Work Phone: Comment on above: Antibody Results Int erpretation of Immune Status Non Reactive Presumed Non-Immune Equivocal Equivocal Reactive Presumed Immune Platelets bldon 07-04-2022 Platelets (Bld) [#/Vol] 346 10*3/uL 150-450 [facility] Work Phone: Serum Treponema species anti body detectionon 07-04-2022 Treponema sp Ab Ql (S) Non-Reactive [facility] Work Phone: Cervical or vagninal specime n microscopic examination by cytology stain (reported ason 06-08-2022 Cytology report Cyto stain Doc (Cvx/Vag) Comment . [facility] Work Phone: Comment on above: The Pap [...] JOSE J+probe Ql (Unsp spec) Negative Negative [facility] Work Phone: Laboratory - Cytologyon 05-21 Banking Consultant Cyto stain Nom (Cvx/Vag) [ID] Comment . [facility] Work Phone: Comment on above: Nolan Caputo, Screen Examiner (ASCP) Laboratory - Drug toxicology on 06-08-2022 Amphetamines Ql (U) Negative <1000 ng/mL [facility] Work Phone: Benzodiazepines Ql (U) Negative < 200 ng/mL [facility] Work Phone: Cannabinoids Screen Ql (U) Negative < 50 ng/m L [facility] Work Phone: Cocaine Ql (U) Negative < 300 ng/mL [facility] Work Phone: Opiates Ql (U) Negative < 300 ng/mL [facility] Work Phone: Laboratory - Microbiology an d Antimicrobial susceptibilityon 06-08-2022 N. gonorrhoeae DNA JOSE J+probe Ql (Unsp spec) Negative Negative [facility] Work Phone: Comment on above: Performed at: =G - L [address] [id number] Director: Chayo Yi MD, Phone: [phone] Laboratory - Miscellaneous t estson 06-08-2022 Service comment (Unsp spec) [Interp] Comment . [facility] Work Phone: Comment on above: This liquid based Th inPrep(R) pap test was screened withthe use of an image guided system. Service comment (Unsp spec) [Interp] . . [facility] Work Phone: No Panel Informationon 06-08 Human Papillomavirus Screen Comment . [facility] Work Phone: Comment on above: The HPV DNA reflex c riteria were not met with this specimenresult therefore, no HPV testing was performed.Performed at: - [facility] [address] [id number] Director: Chayo Yi MD, Phone: [phone] MDMA (Ecstasy) Screen Negative < 500 ng/mL [facility] Work Phone: Pathology report final diagnosis Narrative Comment . [facility] Work Phone: Comment on above: NEGATIVE FOR INTRAEP ITHELIAL LESION OR MALIGNANCY. Urine Barbiturates Screen Negative < 200 ng/m L [facility] Work Phone: Urine Drug Screen Comment [facility] Work Phone: Comment on above: CONFIRMATORY TESTING [...] Urine Methadone Screen Negative < 300 ng/mL [facility] Work Phone: Urine phencyclidine (PCP) de tectionon 06-08-2022 Phencyclidine Ql (U) Negative < 25 ng/mL [facility] Work Phone: Laboratory - Microbiology an d Antimicrobial susceptibilityon 03-30-2022 SARS-CoV-2 (COVID-19) RNA JOSE J+probe Ql (Unsp spec) Not detected [facility] Work Phone: No Panel Informationon 03-30 Influenza Types A,B Rapid (Clinic) Not detected [facility] Work Phone: GC/Chlamydia Amp, Uron 07-06 Chlamydia Amplif, Ur Normal [facility] Comment on above: Result Comment: Nega tive for For screening asymptomatic women, a vaginal swab specimen (APTIMA vaginal swab 531371) is optimal. Urine specimens have reduced sensitivity for Chlamydia trachomatis or Neisseria gonorrhoeae infection in female patients without symptoms. This test was developed and its performance characteristics determined by [facility] ([facility]). It has not been cleared or approved by the FDA. [facility] is regulated under CLIA as qualified to perform high complexity testing. This test is used for clinical purposes. It should not be regarded as investigational or for research. Chlamydia For screening asymptomatic women, a vaginal swab specimen (APTIMA vaginal swab 493171) is optimal. Urine specimens have reduced sensitivity for Chlamydia trachomatis or Neisseria gonorrhoeae infection in female patients without symptoms. This test was developed and its performance characteristics determined by [facility] and [facility] ([facility]). It has not been cleared or approved by the FDA. [facility] is regulated under CLIA as qualified to perform high complexity testing. This test is used for clinical purposes. It should not be regarded as investigational or for research. trachomatis by For screening asymptomatic women, a vaginal swab specimen (APTIMA vaginal swab 389116) is optimal. Urine specimens have reduced sensitivity for Chlamydia trachomatis or Neisseria gonorrhoeae infection in female patients without symptoms. This test was developed and its performance characteristics determined by [facility] and Laboratory [facility] ([facility]). It has not been cleared or approved by the FDA. [facility] is regulated under CLIA as qualified to perform high complexity testing. This test is used for clinical purposes. It should not be regarded as investigational or for research. amplification. For screening asymptomatic women, a vaginal swab specimen (APTIMA vaginal swab 897785) is optimal. Urine specimens have reduced sensitivity for Chlamydia trachomatis or Neisseria gonorrhoeae infection in female patients without symptoms. This test was developed and its performance characteristics determined by [facility] and [facility] ([facility]). It has not been cleared or approved by the FDA. [facility] is regulated under CLIA as qualified to perform high complexity testing. This test is used for clinical purposes. It should not be regarded as investigational or for research. Performed By: #### U GCCT #### [facility] Routine Lab [address] [place], [place] [address] GC Amplification, Ur NGNEG Normal [facility] Comment on above: Performed By: #### U GCCT #### [facility] [address] [place], [place] [address] Culture, urine Bacteria identified Cx Nom (U) Culture exhibits no growth. [facility] Work Phone: Vital Signs Date Time Vital Sign Value Performing Clinician Cristy allen 05-07-2025 15:26-0400 Body height 170.18 cm Yudi Méndez SENIOR PROCESS ANALYST-C Work Phone: [facility] 05-07-2025 15:26-0400 Body mass index (BMI) [Ratio] 29.8 kg/m2 Yudi Méndez SENIOR PROCESS ANALYST-C Work Phone: [facility] 05-07-2025 15:26-0400 Body weight 86.43 kg Yudi Méndez SENIOR PROCESS ANALYST-C Work Phone: [facility] 05-07-2025 15:26-0400 Diastolic blood pressure 76 mm[Hg] Yudi Méndez SENIOR PROCESS ANALYST-C Work Phone: [facility] 05-07-2025 15:26-0400 Systolic blood pressure 122 mm[Hg] Yudi Méndez SENIOR PROCESS ANALYST-C Work Phone: [facility] 04-30-2025 15:00-0400 Body height 170.18 cm Yudi Méndez SENIOR PROCESS ANALYST-C Work Phone: [facility] 04-30-2025 15:00-0400 Body mass index (BMI) [Ratio] 29.6 kg/m2 Yudi Méndez SENIOR PROCESS ANALYST-C Work Phone: [facility] 04-30-2025 15:00-0400 Body weight 85.72 kg Yudi Méndez SENIOR PROCESS ANALYST-C Work Phone: [facility] 04-30-2025 15:00-0400 Diastolic blood pressure 72 mm[Hg] Yudi Méndez SENIOR PROCESS ANALYST-C Work Phone: [facility] 04-30-2025 15:00-0400 Systolic blood pressure 118 mm[Hg] Yudi Méndez SENIOR PROCESS ANALYST-C Work Phone: [facility] 04-24-2025 13:50-0400 Body height 170.18 cm Yudi Aris SENIOR PROCESS ANALYST-C Work Phone: [facility] 04-24-2025 13:50-0400 Body mass index (BMI) [Ratio] 29.2 kg/m2 Yudi Aris SENIOR PROCESS ANALYST-C Work Phone: [facility] 04-24-2025 13:50-0400 Body weight 84.82 kg Yudi Aris SENIOR PROCESS ANALYST-C Work Phone: 3(141)246-001179 [address] 04-24-2025 13:50-0400 Diastolic blood pressure 69 mm[Hg] Yudi Aris SENIOR PROCESS ANALYST-C Work Phone: 7(692)222-920579 [address] 04-24-2025 13:50-0400 Systolic blood pressure 115 mm[Hg] Yudi Aris SENIOR PROCESS ANALYST-C Work Phone: 5(879)029-155318 [place] [address] 04-16-2025 15:28-0400 Body height 170.18 cm Yudi Aris SENIOR PROCESS ANALYST-C Work Phone: 0(170)293-505118 [place] [address] 04-16-2025 15:28-0400 Body mass index (BMI) [Ratio] 29.3 kg/m2 Yudi Aris SENIOR PROCESS ANALYST-C Work Phone: 1(087)841-800079 [address] 04-16-2025 15:28-0400 Body weight 84.99 kg Yudi Aris SENIOR PROCESS ANALYST-C Work Phone: 8(303)676-389818 [place] [address] 04-16-2025 15:28-0400 Diastolic blood pressure 73 mm[Hg] Yudi Aris SENIOR PROCESS ANALYST-C Work Phone: 0(569)356-84[address] [place] [address] 04-16-2025 15:28-0400 Systolic blood pressure 119 mm[Hg] Yudi Aris SENIOR PROCESS ANALYST-C Work Phone: 1(794)431-125879 [address] 03-31-2025 15:44-0400 Body height 170.18 cm Yudi Aris SENIOR PROCESS ANALYST-C Work Phone: 8(752)987-700523 [place] [address] 03-31-2025 15:44-0400 Body mass index (BMI) [Ratio] 28.6 kg/m2 Yudi Aris SENIOR PROCESS ANALYST-C Work Phone: [facility] 03-31-2025 15:44-0400 Body weight 83 kg Yudi Méndez SENIOR PROCESS ANALYST-C Work Phone: [facility] 03-31-2025 15:44-0400 Diastolic blood pressure 71 mm[Hg] Yudi Méndez SENIOR PROCESS ANALYST-C Work Phone: [facility] 03-31-2025 15:44-0400 Systolic blood pressure 118 mm[Hg] Yudi Méndez SENIOR PROCESS ANALYST-C Work Phone: [facility] 03-23-2025 14:38-0400 Body temperature 98.3 [degF] Yudi Méndez SENIOR PROCESS ANALYST-C Work Phone: [facility] 03-23-2025 14:38-0400 Diastolic blood pressure 89 mm[Hg] Yudi Méndez SENIOR PROCESS ANALYST-C Work Phone: [facility] 03-23-2025 14:38-0400 Heart rate 77 /min Yudi Méndez SENIOR PROCESS ANALYST-C Work Phone: [facility] 03-23-2025 14:38-0400 Respiratory rate 16 /min Yudi Méndez SENIOR PROCESS ANALYST-C Work Phone: [facility] 03-23-2025 14:38-0400 SaO2% (BldA) [Mass fraction] 100 % Yudi Méndez SENIOR PROCESS ANALYST-C Work Phone: [facility] 03-23-2025 14:38-0400 Systolic blood pressure 132 mm[Hg] Yudi Méndez SENIOR PROCESS ANALYST-C Work Phone: [facility] 03-23-2025 12:58-0400 Body height 170.18 cm Yudi Méndez SENIOR PROCESS ANALYST-C Work Phone: [facility] 03-23-2025 12:58-0400 Body mass index (BMI) [Ratio] 28.1 kg/m2 Yudi Méndez SENIOR PROCESS ANALYST-C Work Phone: [facility] 03-23-2025 12:58-0400 Body weight 81.51 kg Yudi Méndez SENIOR PROCESS ANALYST-C Work Phone: [facility] 03-19-2025 12:54-0400 Body height 170.18 cm Yudi Méndez SENIOR PROCESS ANALYST-C Work Phone: [facility] 03-19-2025 12:49-0400 Body mass index (BMI) [Ratio] 28.6 kg/m2 Yudi Aris SENIOR PROCESS ANALYST-C Work Phone: [facility] 03-19-2025 12:49-0400 Body weight 83 kg Yudi Aris SENIOR PROCESS ANALYST-C Work Phone: [facility] 03-19-2025 12:49-0400 Diastolic blood pressure 67 mm[Hg] Yudi Aris SENIOR PROCESS ANALYST-C Work Phone: [facility] 03-19-2025 12:49-0400 Systolic blood pressure 104 mm[Hg] Yudi Aris SENIOR PROCESS ANALYST-C Work Phone: 5(428)776-940812 [place] [address] 03-07-2025 16:14-0400 Body height 170.18 cm Yudi Aris SENIOR PROCESS ANALYST-C Work Phone: 6(750)758-744312 [place] [address] 03-07-2025 16:11-0400 Body mass index (BMI) [Ratio] 28.5 kg/m2 Yudi Aris SENIOR PROCESS ANALYST-C Work Phone: [facility] 03-07-2025 16:11-0400 Body weight 82.61 kg Yudi Aris SENIOR PROCESS ANALYST-C Work Phone: [facility] 03-07-2025 16:11-0400 Diastolic blood pressure 73 mm[Hg] Yudi Aris SENIOR PROCESS ANALYST-C Work Phone: [facility] 03-07-2025 16:11-0400 Systolic blood pressure 115 mm[Hg] Yudi Aris SENIOR PROCESS ANALYST-C Work Phone: [facility] 02-19-2025 11:35-0400 Body height 170.18 cm Yudi Aris SENIOR PROCESS ANALYST-C Work Phone: [facility] 02-19-2025 11:31-0400 Body mass index (BMI) [Ratio] 27.8 kg/m2 Yudi Méndez SENIOR PROCESS ANALYST-C Work Phone: [facility] 02-19-2025 11:31-0400 Body weight 80.73 kg Yudi Méndez SENIOR PROCESS ANALYST-C Work Phone: 5(410)390-480423 [place] [address] 02-19-2025 11:31-0400 Diastolic blood pressure 71 mm[Hg] Yudi Aris SENIOR PROCESS ANALYST-C Work Phone: 6(759)217-381023 [place] [address] 02-19-2025 11:31-0400 Systolic blood pressure 111 mm[Hg] Yudi Aris SENIOR PROCESS ANALYST-C Work Phone: 5(902)479-300223 [place] [address] 01-29-2025 15:15-0400 Body height 170.18 cm Yudi Méndez SENIOR PROCESS ANALYST-C Work Phone: 9(532)503-736818 [place] [address] 01-29-2025 15:12-0400 Body mass index (BMI) [Ratio] 27.2 kg/m2 Yudi Aris SENIOR PROCESS ANALYST-C Work Phone: 1(187)352-079418 [place] [address] 01-29-2025 15:12-0400 Body weight 78.92 kg Yudi Aris SENIOR PROCESS ANALYST-C Work Phone: 6(667)720-006418 [place] [address] 01-29-2025 15:12-0400 Diastolic blood pressure 69 mm[Hg] Yudi Aris SENIOR PROCESS ANALYST-C Work Phone: 2(103)248-284618 [place] [address] 01-29-2025 15:12-0400 Systolic blood pressure 118 mm[Hg] Yudi Méndez SENIOR PROCESS ANALYST-C Work Phone: 9(553)373-106118 [place] [address] 01-01-2025 11:30-0400 Body height 170.18 cm Yudi Aris SENIOR PROCESS ANALYST-C Work Phone: 8(659)093-115318 [place] [address] 01-01-2025 11:25-0400 Body mass index (BMI) [Ratio] 26.2 kg/m2 Yudi Aris SENIOR PROCESS ANALYST-C Work Phone: 8(906)643-300223 [place] [address] 01-01-2025 11:25-0400 Body weight 75.97 kg Yudi Méndez SENIOR PROCESS ANALYST-C Work Phone: 0(531)081-378823 [place] [address] 01-01-2025 11:25-0400 Diastolic blood pressure 71 mm[Hg] Yudi Méndez SENIOR PROCESS ANALYST-C Work Phone: [facility] 01-01-2025 11:25-0400 Systolic blood pressure 113 mm[Hg] Yudi Méndez SENIOR PROCESS ANALYST-C Work Phone: [facility] 11-27-2024 12:29-0400 Body mass index (BMI) [Ratio] 24.7 kg/m2 Yudi Méndez SENIOR PROCESS ANALYST-C Work Phone: [facility] 11-27-2024 12:29-0400 Body weight 71.72 kg Yudi Méndez SENIOR PROCESS ANALYST-C Work Phone: [facility] 11-27-2024 12:29-0400 Diastolic blood pressure 67 mm[Hg] Yudi Méndez SENIOR PROCESS ANALYST-C Work Phone: [facility] 11-27-2024 12:29-0400 Systolic blood pressure 101 mm[Hg] Yudi Méndez SENIOR PROCESS ANALYST-C Work Phone: [facility] 11-26-2024 14:17-0400 Body mass index (BMI) [Ratio] 25 kg/m2 Yudi Méndez SENIOR PROCESS ANALYST-C Work Phone: [facility] 11-26-2024 14:17-0400 Body temperature 97.2 [degF] Yudi Méndez SENIOR PROCESS ANALYST-C Work Phone: [facility] 11-26-2024 14:17-0400 Body weight 72.68 kg Yudi Méndez SENIOR PROCESS ANALYST-C Work Phone: [facility] 11-26-2024 14:17-0400 Diastolic blood pressure 79 mm[Hg] Yudi Méndez SENIOR PROCESS ANALYST-C Work Phone: [facility] 11-26-2024 14:17-0400 Heart rate 63 /min Yudi Méndez SENIOR PROCESS ANALYST-C Work Phone: [facility] 11-26-2024 14:17-0400 Respiratory rate 18 /min Yudi Méndez SENIOR PROCESS ANALYST-C Work Phone: [facility] 11-26-2024 14:17-0400 SaO2% (BldA) [Mass fraction] 100 % Yudi Méndez SENIOR PROCESS ANALYST-C Work Phone: [facility] 11-26-2024 14:17-0400 Systolic blood pressure 113 mm[Hg] Yudi Méndez SENIOR PROCESS ANALYST-C Work Phone: [facility] 11-01-2024 14:26-0400 Body mass index (BMI) [Ratio] 23.6 kg/m2 Yudi Méndez SENIOR PROCESS ANALYST-C Work Phone: [facility] 11-01-2024 14:26-0400 Body weight 68.26 kg Yudi Méndez SENIOR PROCESS ANALYST-C Work Phone: [facility] 11-01-2024 14:26-0400 Diastolic blood pressure 75 mm[Hg] Yudi Méndez SENIOR PROCESS ANALYST-C Work Phone: [facility] 11-01-2024 14:26-0400 Systolic blood pressure 114 mm[Hg] Yudi Méndez SENIOR PROCESS ANALYST-C Work Phone: [facility] 10-04-2024 14:30-0500 Body mass index (BMI) [Ratio] 23.8 kg/m2 Yudi Méndez SENIOR PROCESS ANALYST-C Work Phone: [facility] 10-04-2024 14:30-0500 Body weight 69.11 kg Yudi Méndez SENIOR PROCESS ANALYST-C Work Phone: [facility] 10-04-2024 14:30-0500 Diastolic blood pressure 82 mm[Hg] Yudi Méndez SENIOR PROCESS ANALYST-C Work Phone: [facility] 10-04-2024 14:30-0500 Systolic blood pressure 124 mm[Hg] Yudi Méndez SENIOR PROCESS ANALYST-C Work Phone: [facility] 03-06-2023 11:36-0400 Body height 170.18 cm SENIOR PROCESS ANALYST-C Yudi Méndez SENIOR PROCESS ANALYST Work Phone: [facility] 03-06-2023 11:35-0400 Body mass index (BMI) [Ratio] 24.3 kg/m2 SENIOR PROCESS ANALYST-C Yudi Méndez SENIOR PROCESS ANALYST Work Phone: [facility] 03-06-2023 11:35-0400 Body weight 70.53 kg SENIOR PROCESS ANALYST-C Yudi Méndez SENIOR PROCESS ANALYST Work Phone: [facility] 03-06-2023 11:35-0400 Diastolic blood pressure 79 mm[Hg] SENIOR PROCESS ANALYST-C Yudi Méndez SENIOR PROCESS ANALYST Work Phone: [facility] 03-06-2023 11:35-0400 Systolic blood pressure 119 mm[Hg] SENIOR PROCESS ANALYST-C Yudi Méndez SENIOR PROCESS ANALYST Work Phone: [facility] 01-25-2023 08:54-0400 Body temperature 98.7 [degF] SENIOR PROCESS ANALYST-C Yudi Méndez SENIOR PROCESS ANALYST Work Phone: [facility] 01-25-2023 08:54-0400 Diastolic blood pressure 78 mm[Hg] SENIOR PROCESS ANALYST-C Yudi Méndez SENIOR PROCESS ANALYST Work Phone: [facility] 01-25-2023 08:54-0400 Heart rate 67 /min SENIOR PROCESS ANALYST-C Yudi Méndez SENIOR PROCESS ANALYST Work Phone: [facility] 01-25-2023 08:54-0400 Respiratory rate 18 /min SENIOR PROCESS ANALYST-C Yudi Méndez SENIOR PROCESS ANALYST Work Phone: [facility] 01-25-2023 08:54-0400 SaO2% (BldA) [Mass fraction] 96 % SENIOR PROCESS ANALYST-C Yudi Méndez SENIOR PROCESS ANALYST Work Phone: [facility] 01-25-2023 08:54-0400 Systolic blood pressure 123 mm[Hg] SENIOR PROCESS ANALYST-C Yudi Méndez SENIOR PROCESS ANALYST Work Phone: [facility] 01-23-2023 07:34-0400 Body height 170.18 cm SENIOR PROCESS ANALYST-C Yudi Méndez SENIOR PROCESS ANALYST Work Phone: [facility] 01-23-2023 07:34-0400 Body mass index (BMI) [Ratio] 29.4 kg/m2 SENIOR PROCESS ANALYST-C Yudi Méndez SENIOR PROCESS ANALYST Work Phone: [facility] 01-23-2023 07:34-0400 Body weight 85.27 kg SENIOR PROCESS ANALYST-C Yudi Méndez SENIOR PROCESS ANALYST Work Phone: [facility] 01-18-2023 09:11-0400 Body mass index (BMI) [Ratio] 29.7 kg/m2 SENIOR PROCESS ANALYST-C Yudi Aris SENIOR PROCESS ANALYST Work Phone: [facility] 01-18-2023 09:11-0400 Body weight 86.29 kg SENIOR PROCESS ANALYST-C Yudi Méndez SENIOR PROCESS ANALYST Work Phone: [facility] 01-18-2023 09:11-0400 Diastolic blood pressure 82 mm[Hg] SENIOR PROCESS ANALYST-C Yudi Méndez SENIOR PROCESS ANALYST Work Phone: [facility] 01-18-2023 09:11-0400 Systolic blood pressure 123 mm[Hg] SENIOR PROCESS ANALYST-C Yudi Méndez SENIOR PROCESS ANALYST Work Phone: [facility] 01-09-2023 08:35-0400 Body mass index (BMI) [Ratio] 30.4 kg/m2 SENIOR PROCESS ANALYST-C Yudi Méndez SENIOR PROCESS ANALYST Work Phone: [facility] 01-09-2023 08:35-0400 Body weight 88.11 kg SENIOR PROCESS ANALYST-C Yudi Méndez SENIOR PROCESS ANALYST Work Phone: [facility] 01-09-2023 08:35-0400 Diastolic blood pressure 83 mm[Hg] SENIOR PROCESS ANALYST-C Yudi Méndez SENIOR PROCESS ANALYST Work Phone: [facility] 01-09-2023 08:35-0400 Systolic blood pressure 123 mm[Hg] SENIOR PROCESS ANALYST-C Yudi Méndez SENIOR PROCESS ANALYST Work Phone: [facility] 01-03-2023 09:18-0400 Body mass index (BMI) [Ratio] 29.9 kg/m2 SENIOR PROCESS ANALYST-C Yudi Méndez SENIOR PROCESS ANALYST Work Phone: [facility] 01-03-2023 09:18-0400 Body weight 86.8 kg SENIOR PROCESS ANALYST-C Yudi Méndez SENIOR PROCESS ANALYST Work Phone: [facility] 01-03-2023 09:18-0400 Diastolic blood pressure 83 mm[Hg] SENIOR PROCESS ANALYST-C Yudi Aris SENIOR PROCESS ANALYST Work Phone: [facility] 01-03-2023 09:18-0400 Systolic blood pressure 131 mm[Hg] SENIOR PROCESS ANALYST-C Yudi Aris SENIOR PROCESS ANALYST Work Phone: [facility] 12-28-2022 14:34-0400 Body mass index (BMI) [Ratio] 29.7 kg/m2 SENIOR PROCESS ANALYST-C Yudi Méndez SENIOR PROCESS ANALYST Work Phone: [facility] 12-28-2022 14:34-0400 Body weight 86.18 kg SENIOR PROCESS ANALYST-C Yudi Aris SENIOR PROCESS ANALYST Work Phone: [facility] 12-28-2022 14:34-0400 Diastolic blood pressure 82 mm[Hg] SENIOR PROCESS ANALYST-C Yudi Méndez SENIOR PROCESS ANALYST Work Phone: [facility] 12-28-2022 14:34-0400 Systolic blood pressure 126 mm[Hg] SENIOR PROCESS ANALYST-C Yudi Méndez SENIOR PROCESS ANALYST Work Phone: [facility] 12-20-2022 13:39-0400 Body height 170.18 cm SENIOR PROCESS ANALYST-C Yudi Méndez SENIOR PROCESS ANALYST Work Phone: [facility] 12-20-2022 13:39-0400 Body mass index (BMI) [Ratio] 30.2 kg/m2 SENIOR PROCESS ANALYST-C Yudi Aris SENIOR PROCESS ANALYST Work Phone: [facility] 12-20-2022 13:39-0400 Body weight 87.6 kg SENIOR PROCESS ANALYST-C Yudi Méndez SENIOR PROCESS ANALYST Work Phone: [facility] 12-20-2022 13:39-0400 Diastolic blood pressure 80 mm[Hg] SENIOR PROCESS ANALYST-C Yudi Aris SENIOR PROCESS ANALYST Work Phone: [facility] 12-20-2022 13:39-0400 Systolic blood pressure 120 mm[Hg] SENIOR PROCESS ANALYST-C Yudi Aris SENIOR PROCESS ANALYST Work Phone: [facility] 12-07-2022 16:13-0400 Body mass index (BMI) [Ratio] 29 kg/m2 SENIOR PROCESS ANALYST-C Yudi Méndez SENIOR PROCESS ANALYST Work Phone: [facility] 12-07-2022 16:13-0400 Body weight 84.14 kg SENIOR PROCESS ANALYST-C Yudi Méndez SENIOR PROCESS ANALYST Work Phone: [facility] 12-07-2022 16:13-0400 Diastolic blood pressure 78 mm[Hg] SENIOR PROCESS ANALYST-C Yudi Méndez SENIOR PROCESS ANALYST Work Phone: [facility] 12-07-2022 16:13-0400 Systolic blood pressure 121 mm[Hg] SENIOR PROCESS ANALYST-C Yudi Méndez SENIOR PROCESS ANALYST Work Phone: [facility] 11-22-2022 15:13-0400 Body height 170.18 cm SENIOR PROCESS ANALYST-C Yudi Méndez SENIOR PROCESS ANALYST Work Phone: [facility] 11-22-2022 15:11-0400 Body mass index (BMI) [Ratio] 27.9 kg/m2 SENIOR PROCESS ANALYST-C Yudi Méndez SENIOR PROCESS ANALYST Work Phone: [facility] 11-22-2022 15:11-0400 Body weight 80.85 kg SENIOR PROCESS ANALYST-C Yudi Méndez SENIOR PROCESS ANALYST Work Phone: [facility] 11-22-2022 15:11-0400 Diastolic blood pressure 77 mm[Hg] SENIOR PROCESS ANALYST-C Yudi Méndez SENIOR PROCESS ANALYST Work Phone: [facility] 11-22-2022 15:11-0400 Systolic blood pressure 121 mm[Hg] SENIOR PROCESS ANALYST-C Yudi Méndez SENIOR PROCESS ANALYST Work Phone: [facility] 11-09-2022 14:42-0400 Body mass index (BMI) [Ratio] 27.7 kg/m2 SENIOR PROCESS ANALYST-C Yudi Méndez SENIOR PROCESS ANALYST Work Phone: [facility] 11-09-2022 14:42-0400 Body weight 80.39 kg SENIOR PROCESS ANALYST-C Yudi Méndez SENIOR PROCESS ANALYST Work Phone: [facility] 11-09-2022 14:42-0400 Diastolic blood pressure 77 mm[Hg] SENIOR PROCESS ANALYST-C Yudi Méndez SENIOR PROCESS ANALYST Work Phone: [facility] 11-09-2022 14:42-0400 Systolic blood pressure 117 mm[Hg] SENIOR PROCESS ANALYST-C Yudi Méndez SENIOR PROCESS ANALYST Work Phone: [facility] 10-27-2022 09:07-0500 Body height 170.18 cm SENIOR PROCESS ANALYST-C Yudi Méndez SENIOR PROCESS ANALYST Work Phone: [facility] 10-27-2022 09:00-0500 Body mass index (BMI) [Ratio] 27.1 kg/m2 SENIOR PROCESS ANALYST-C Yudi Méndez SENIOR PROCESS ANALYST Work Phone: [facility] 10-27-2022 09:00-0500 Body weight 78.58 kg SENIOR PROCESS ANALYST-C Yudi Méndez SENIOR PROCESS ANALYST Work Phone: [facility] 10-27-2022 09:00-0500 Diastolic blood pressure 70 mm[Hg] SENIOR PROCESS ANALYST-C Yudi Méndez SENIOR PROCESS ANALYST Work Phone: [facility] 10-27-2022 09:00-0500 Systolic blood pressure 102 mm[Hg] SENIOR PROCESS ANALYST-C Yudi Méndez SENIOR PROCESS ANALYST Work Phone: [facility] 10-03-2022 14:06-0500 Body mass index (BMI) [Ratio] 26.9 kg/m2 SENIOR PROCESS ANALYST-C Yudi Méndez SENIOR PROCESS ANALYST Work Phone: [facility] 10-03-2022 14:06-0500 Body weight 78.18 kg SENIOR PROCESS ANALYST-C Yudi Méndez SENIOR PROCESS ANALYST Work Phone: [facility] 10-03-2022 14:06-0500 Diastolic blood pressure 80 mm[Hg] SENIOR PROCESS ANALYST-C Yudi Méndez SENIOR PROCESS ANALYST Work Phone: [facility] 10-03-2022 14:06-0500 Systolic blood pressure 124 mm[Hg] SENIOR PROCESS ANALYST-C Yudi Méndez SENIOR PROCESS ANALYST Work Phone: [facility] 09-05-2022 09:54-0500 Body mass index (BMI) [Ratio] 25.6 kg/m2 SENIOR PROCESS ANALYST-C Yudi Méndez SENIOR PROCESS ANALYST Work Phone: [facility] 09-05-2022 09:54-0500 Body weight 74.16 kg SENIOR PROCESS ANALYST-C Yudi Méndez SENIOR PROCESS ANALYST Work Phone: [facility] 09-05-2022 09:54-0500 Diastolic blood pressure 68 mm[Hg] SENIOR PROCESS ANALYST-C Yudi Méndez SENIOR PROCESS ANALYST Work Phone: [facility] 09-05-2022 09:54-0500 Systolic blood pressure 110 mm[Hg] SENIOR PROCESS ANALYST-C Yudi Méndez SENIOR PROCESS ANALYST Work Phone: [facility] 08-03-2022 14:36-0500 Body mass index (BMI) [Ratio] 25.2 kg/m2 SENIOR PROCESS ANALYST-C Yudi Méndez SENIOR PROCESS ANALYST Work Phone: [facility] 08-03-2022 14:36-0500 Body weight 73.02 kg SENIOR PROCESS ANALYST-C Yudi Méndez SENIOR PROCESS ANALYST Work Phone: [facility] 08-03-2022 14:36-0500 Diastolic blood pressure 74 mm[Hg] SENIOR PROCESS ANALYST-C Yudi Méndez SENIOR PROCESS ANALYST Work Phone: [facility] 08-03-2022 14:36-0500 Systolic blood pressure 116 mm[Hg] SENIOR PROCESS ANALYST-C Yudi Méndez SENIOR PROCESS ANALYST Work Phone: [facility] 07-04-2022 14:12-0500 Body height 170.18 cm SENIOR PROCESS ANALYST-C Yudi Méndez SENIOR PROCESS ANALYST Work Phone: [facility] Work Phone: 07-04-2022 14:11-0500 Body mass index (BMI) [Ratio] 25 kg/m2 SENIOR PROCESS ANALYST-C Yudi Méndez SENIOR PROCESS ANALYST Work Phone: [facility] Work Phone: 07-04-2022 14:11-0500 Body weight 72.29 kg SENIOR PROCESS ANALYST-C Yudi Méndez SENIOR PROCESS ANALYST Work Phone: [facility] Work Phone: 07-04-2022 14:11-0500 Diastolic blood pressure 72 mm[Hg] SENIOR PROCESS ANALYST-C Yudi Méndez SENIOR PROCESS ANALYST Work Phone: [facility] Work Phone: 07-04-2022 14:11-0500 Systolic blood pressure 114 mm[Hg] SENIOR PROCESS ANALYST-C Yudi Méndez SENIOR PROCESS ANALYST Work Phone: [facility] Work Phone: 06-08-2022 09:45-0400 Body height 170.18 cm SENIOR PROCESS ANALYST-C Yudi Méndez SENIOR PROCESS ANALYST Work Phone: [facility] Work Phone: 06-08-2022 09:45-0400 Body mass index (BMI) [Ratio] 23.6 kg/m2 SENIOR PROCESS ANALYST-C Yudi Méndez SENIOR PROCESS ANALYST Work Phone: [facility] Work Phone: 06-08-2022 09:45-0400 Body weight 68.49 kg SENIOR PROCESS ANALYST-C Yudi Méndez SENIOR PROCESS ANALYST Work Phone: [facility] Work Phone: 06-08-2022 09:45-0400 Diastolic blood pressure 79 mm[Hg] SENIOR PROCESS ANALYST-C Yudi Méndez SENIOR PROCESS ANALYST Work Phone: [facility] Work Phone: 06-08-2022 09:45-0400 Systolic blood pressure 123 mm[Hg] SENIOR PROCESS ANALYST-C Yudi Méndez SENIOR PROCESS ANALYST Work Phone: [facility] Work Phone: 03-30-2022 15:45-0400 Body mass index (BMI) [Ratio] 23.5 kg/m2 SENIOR PROCESS ANALYST-C Yudi Méndez SENIOR PROCESS ANALYST Work Phone: [facility] Work Phone: 03-30-2022 15:45-0400 Body temperature 98.4 [degF] SENIOR PROCESS ANALYST-C Yudi Méndez SENIOR PROCESS ANALYST Work Phone: [facility] Work Phone: 03-30-2022 15:45-0400 Body weight 68.03 kg SENIOR PROCESS ANALYST-C Yudi Méndez SENIOR PROCESS ANALYST Work Phone: [facility] Work Phone: 03-30-2022 15:45-0400 Diastolic blood pressure 66 mm[Hg] SENIOR PROCESS ANALYST-C Yudi Méndez SENIOR PROCESS ANALYST Work Phone: [facility] Work Phone: 03-30-2022 15:45-0400 Heart rate 82 /min SENIOR PROCESS ANALYST-C Yudi Méndez SENIOR PROCESS ANALYST Work Phone: [facility] Work Phone: 03-30-2022 15:45-0400 Respiratory rate 16 /min SENIOR PROCESS ANALYST-C Yudi Méndez SENIOR PROCESS ANALYST Work Phone: [facility] Work Phone: 03-30-2022 15:45-0400 SaO2% (BldA) [Mass fraction] 99 % SENIOR PROCESS ANALYST-C Yudi Méndez SENIOR PROCESS ANALYST Work Phone: [facility] Work Phone: 03-30-2022 15:45-0400 Systolic blood pressure 108 mm[Hg] SENIOR PROCESS ANALYST-C Yudi Méndez SENIOR PROCESS ANALYST Work Phone: [facility] Work Phone: Encounters Encounter Date Encounter Type Care Provider Facility Start: 05-14-2025 ambulatory Yudi Méndez SENIOR PROCESS ANALYST Facility :[facility] Start: 05-07-2025 End: 05-07-[address] Nelly Gay MD -[facility] Work Phone: Start: 05-07-2025 End: 05-07-2025 ambulatory Yudi Méndez SENIOR PROCESS ANALYST-C Work Phone: -[facility] Start: 04-30-2025 End: 04-30-2025 Patient encounter procedure Manjula Goldman CNM -[facility] Work Phone: Start: 04-30-2025 End: 04-30-2025 ambulatory Yudi Méndez SENIOR PROCESS ANALYST-C Work Phone: -[facility] Start: 04-24-2025 End: 04-24-[address] Nelly Gay MD -[facility] Work Phone: Start: 04-24-2025 End: 04-24-2025 ambulatory Yudi Méndez SENIOR PROCESS ANALYST-C Work Phone: -[facility] Start: 04-16-2025 End: 04-16-[address] Carline Escobar DO -[facility] Work Phone: Start: 04-16-2025 End: 04-16-2025 ambulatory Yudi Méndez SENIOR PROCESS ANALYST-C Work Phone: -[facility] Start: 04-16-2025 End: 04-16-2025 ambulatory Yudi Méndez SENIOR PROCESS ANALYST Facility:[facility] Start: 03-31-2025 End: 03-31-2025 Patient encounter procedure Tania Gutiérrez SENIOR PROCESS ANALYST-C -[facility] Work Phone: Start: 03-31-2025 End: 03-31-2025 ambulatory Yudi Méndez SENIOR PROCESS ANALYST-C Work Phone: -[facility] Start: 03-23-2025 End: 03-23-2025 Emergency department patient visit Yudi Méndez SENIOR PROCESS ANALYST-C Work Phone: -Emergency Department Work Phone: Start: 03-19-2025 End: 03-19-2025 Patient encounter procedure Manjula Goldman CNM -[facility] @ Start: 03-19-2025 End: 03-19-2025 ambulatory Yudi Méndez SENIOR PROCESS ANALYST-C Work Phone: -[facility] @ Start: 03-07-2025 End: 03-07-[address] Nelly Gay MD -[facility] Work Phone: Start: 03-07-2025 End: 03-07-2025 ambulatory Yudi Méndez SENIOR PROCESS ANALYST-C Work Phone: -[facility] Start: 02-19-2025 End: 02-19-2025 Patient encounter procedure Manjula Goldman CNM -[facility] @ Start: 02-19-2025 End: 02-19-2025 ambulatory Yudi Méndez SENIOR PROCESS ANALYST-C Work Phone: -[facility] [facility] @ Start: 01-29-2025 End: 01-29-[address] Carline Escobar DO -[facility] Work Phone: Start: 01-29-2025 End: 01-29-2025 ambulatory Yudi Méndez SENIOR PROCESS ANALYST-C Work Phone: [facility] Work Phone: Start: 01-29-2025 End: 01-29-2025 ambulatory [facility] Facility:[facility] Start: 01-01-2025 End: 01-01-2025 Patient encounter procedure Manjula SCHNEIDER -[facility] @ Start: 01-01-2025 End: 01-01-2025 ambulatory Yudi Méndez NP-C Work Phone: [facility] Work Phone: Start: 12-17-2024 End: 12-17-2024 ambulatory YUDI [facility] Start: 11-27-2024 End: 11-27-2024 Patient encounter procedure Manjula Goldman CNM -[facility] @ Start: 11-27-2024 End: 11-27-2024 ambulatory Yudi Méndez NP Facility:[facility] Start: 11-26-2024 End: 11-26-[address] Ravinder Suazo MD -Laboratory, Specimen Work Phone: Start: 11-26-2024 End: 11-26-[address] Ravinder Suazo MD -[facility] Work Phone: Start: 11-26-2024 End: 11-26-2024 ambulatory Ravinder Suazo Facility:[facility] Start: 11-26-2024 End: 11-26-2024 ambulatory Ravinder Suazo Facility:[facility] Start: 11-01-2024 End: 11-01-[address] Carline Escobar DO -[facility] Work Phone: Start: 11-01-2024 End: 11-01-2024 ambulatory Yudi Méndez SENIOR PROCESS ANALYST Facility:[facility] Start: 10-11-2024 End: 10-11-2024 ambulatory YUDI MÉNDEZ Kit Castaneda [facility] Start: 10-04-2024 End: 10-04-2024 Patient encounter procedure Manjula Goldman [facility] -[facility] Work Phone: Start: 10-04-2024 End: 10-04-2024 ambulatory Yudi Méndez SENIOR PROCESS ANALYST Facility:[facility] Start: 10-04-2024 End: 10-04-2024 ambulatory Yudi Méndez SENIOR PROCESS ANALYST Facility:[facility] Start: 06-29-2023 End: 06-29-2023 ambulatory SENIOR PROCESS ANALYST-C Yudi Méndez SENIOR PROCESS ANALYST Work Phone: [facility] Work Phone: Start: 06-29-2023 End: 06-29-2023 Patient encounter procedure SENIOR PROCESS ANALYST-C Yudi Méndez SENIOR PROCESS ANALYST Work Phone: [facility] Work Phone: Start: 03-06-2023 End: 03-06-2023 Patient encounter procedure SENIOR PROCESS ANALYST-C Yudi Méndez SENIOR PROCESS ANALYST Work Phone: [facility] Work Phone: Start: 01-25-2023 Non-patient / Non-visit SENIOR PROCESS ANALYST-C Yudi Méndez SENIOR PROCESS ANALYST Work Phone: [facility] Start: 01-24-2023 Non-patient / Non-visit SENIOR PROCESS ANALYST-C Yudi Méndez SENIOR PROCESS ANALYST Work Phone: [facility] Start: 01-23-2023 Non-patient / Non-visit SENIOR PROCESS ANALYST-C Yudi Méndez SENIOR PROCESS ANALYST Work Phone: [facility] Start: 01-23-2023 End: 01-25-2023 Evaluation and management of inpatient SENIOR PROCESS ANALYST-C Yudi Méndez SENIOR PROCESS ANALYST Work Phone: [facility] Start: 01-18-2023 End: 01-18-2023 Patient encounter procedure SENIOR PROCESS ANALYST-C Yudi Méndez SENIOR PROCESS ANALYST Work Phone: [facility] Start: 01-09-2023 End: 01-09-2023 Patient encounter procedure SENIOR PROCESS ANALYST-C Yudi Méndez SENIOR PROCESS ANALYST Work Phone: [facility] Start: 01-03-2023 End: 01-03-2023 Patient encounter procedure SENIOR PROCESS ANALYST-C Yudi Méndez SENIOR PROCESS ANALYST Work Phone: [facility] Start: 12-28-2022 End: 12-28-2022 Patient encounter procedure SENIOR PROCESS ANALYST-C Yudi Méndez SENIOR PROCESS ANALYST Work Phone: [facility] Start: 12-20-2022 End: 12-20-2022 ambulatory SENIOR PROCESS ANALYST-C Yudi Méndez SENIOR PROCESS ANALYST Work Phone: [facility] Work Phone: Start: 12-20-2022 End: 12-20-2022 Patient encounter procedure SENIOR PROCESS ANALYST-C Yudi Méndez SENIOR PROCESS ANALYST Work Phone: [facility] Start: 12-07-2022 End: 12-07-2022 Patient encounter procedure SENIOR PROCESS ANALYST-C Yudi Mnédez SENIOR PROCESS ANALYST Work Phone: [facility] Start: 11-22-2022 End: 11-22-2022 ambulatory SENIOR PROCESS ANALYST-C Yudi Méndez SENIOR PROCESS ANALYST Work Phone: [facility] Work Phone: Start: 11-22-2022 End: 11-22-2022 Patient encounter procedure SENIOR PROCESS ANALYST-C Yudi Méndez SENIOR PROCESS ANALYST Work Phone: [facility] Start: 11-09-2022 End: 11-09-2022 Patient encounter procedure SENIOR PROCESS ANALYST-C Yudi Méndez SENIOR PROCESS ANALYST Work Phone: [facility] Start: 10-31-2022 End: 10-31-2022 ambulatory SENIOR PROCESS ANALYST-C Yudi Méndez SENIOR PROCESS ANALYST Work Phone: [facility] Work Phone: Start: 10-31-2022 End: 10-31-2022 Patient encounter procedure SENIOR PROCESS ANALYST-C Yudi Méndez SENIOR PROCESS ANALYST Work Phone: [facility] Start: 10-27-2022 End: 10-27-2022 ambulatory SENIOR PROCESS ANALYST-C Yudi Méndez SENIOR PROCESS ANALYST Work Phone: [facility] Work Phone: Start: 10-27-2022 End: 10-27-2022 Patient encounter procedure SENIOR PROCESS ANALYST-C Yudi Méndez SENIOR PROCESS ANALYST Work Phone: [facility] Start: 10-03-2022 End: 10-03-2022 Patient encounter procedure SENIOR PROCESS ANALYST-C Yudi Méndez SENIOR PROCESS ANALYST Work Phone: [facility] Start: 09-05-2022 End: 09-05-2022 Patient encounter procedure SENIOR PROCESS ANALYST-C Yudi Méndez SENIOR PROCESS ANALYST Work Phone: [facility] Start: 08-03-2022 End: 08-03-2022 Patient encounter procedure SENIOR PROCESS ANALYST-C Yudi Méndez SENIOR PROCESS ANALYST Work Phone: [facility] Start: 07-04-2022 End: 07-04-2022 ambulatory SENIOR PROCESS ANALYST-C Yudi Méndez SENIOR PROCESS ANALYST Work Phone: [facility] Work Phone: Start: 07-04-2022 End: 07-04-2022 Patient encounter procedure SENIOR PROCESS ANALYST-C Yudi Méndez SENIOR PROCESS ANALYST Work Phone: [facility] Start: 06-08-2022 End: 06-08-2022 ambulatory SENIOR PROCESS ANALYST-C Yudi Méndez SENIOR PROCESS ANALYST Work Phone: [facility] Work Phone: Start: 06-08-2022 End: 06-08-2022 Patient encounter procedure SENIOR PROCESS ANALYST-C Yudi Méndez SENIOR PROCESS ANALYST Work Phone: [facility] Specimen Start: 06-08-2022 End: 06-08-2022 Patient encounter procedure SENIOR PROCESS ANALYST-C Yudi Méndez SENIOR PROCESS ANALYST Work Phone: [facility] Start: 03-30-2022 End: 03-30-2022 Patient encounter procedure SENIOR PROCESS ANALYST-C Yudi Méndez SENIOR PROCESS ANALYST Work Phone: [facility] Procedures Date Procedure Procedure Detail Performing Clinician Start: 04-16-2025 Beta-hemolytic Strep tococcus culture Yudi Méndez SENIOR PROCESS ANALYST-C Work Phone: Start: 01-29-2025 Lead measurement Yudi Méndez SENIOR PROCESS ANALYST-C Work Phone: Comment on above: Testing performed by Inductively coupled plasma/MassSpectrometry.Analysis by inductively coupled plasma/massspectrometry (ICP/MS) Environmental Exposure: WHO Recommendation <5.0 Occupational Exposure: OSHA Lead Std 40.0 JAMAR 30.0 Detection Limit = 1.0Performed at: [facility] [address] [id number] Director: Guzman Darnell PhD, Phone: [phone] Start: 01-29-2025 Serologic test for syphilis Yudi Méndez SENIOR PROCESS ANALYST-C Work Phone: Start: 10-04-2024 Liquid based cervica l cytology screening Yudi Méndez SENIOR PROCESS ANALYST-C Work Phone: Comment on above: NEGATIVE FOR INTRAEP ITHELIAL LESION OR MALIGNANCY. This liquid based Th inPrep(R) pap test was screened withthe use of an image guided system. The HPV DNA reflex c adriana were not met with this specimenresult therefore, no HPV testing was performed.Performed at: [facility] [employer] [id number] Director: Chayo Yi MD, Phone: [phone] Start: 10-04-2024 Hepatitis B surface antigen measurement Yudi Méndez SENIOR PROCESS ANALYST-C Work Phone: Start: 10-04-2024 Hepatitis C antibody measurement Yudi Méndez SENIOR PROCESS ANALYST-C Work Phone: Comment on above: Non Reactive: < 0.8 Equivocal: >/= 0.8 to < 1.0 Reactive: >/= 1.0The [facility] requires that a reactive/equivocal HCV antibody result be sent out for confirmation. HCV Quant by PCR testing. Start: 10-04-2024 Rubella IgG measurement Yudi Méndez SENIOR PROCESS ANALYST-C Work Phone: Comment on above: Antibody Results Int erpretation of Immune Status Non Reactive Presumed Non-Immune Equivocal Equivocal Reactive Presumed Immune Start: 10-04-2024 Urine culture Yudi Robert is SENIOR PROCESS ANALYST-C Work Phone: Start: 12-20-2022 Ultrasound scan for growth SENIOR PROCESS ANALYST-C Yudi Méndez SENIOR PROCESS ANALYST Work Phone: Group B Streptococcu s Culture SENIOR PROCESS ANALYST-C Yudi Méndez SENIOR PROCESS ANALYST Work Phone: Urine culture SENIOR PROCESS ANALYST-C Yudi Robert is SENIOR PROCESS ANALYST Work Phone: Plan of Treatment Date Care Activity Detail Author Start: 03-23-2025 [facility] Start: 01-29-2025 CBC W Auto Different ial panel - Blood [facility] Start: 01-29-2025 Measurement of gluco se 2 hours after glucose challenge for glucose tolerance test [facility] Start: 01-29-2025 Serologic test for syphilis [facility] Start: 01-29-2025 T4 free measurement [facility] Start: 01-29-2025 Thyroid stimulating hormone measurement [facility] Start: 01-29-2025 [facility] Start: 01-25-2023 Patient discharge [facility] Start: 01-23-[address] [facility] Start: 01-23-2023 Application of ice c ollar, cap or bag [facility] Start: 01-23-[address] vein [facility] Start: 01-23-2023 Introduction of urinary catheter [facility] Start: 01-23-2023 Measuring intake and output [facility] Start: 01-23-[address] [facility] Start: 01-23-[address] [facility] Start: 01-23-2023 Provision of activity privileges [facility] Start: 01-23-[address] [facility] Start: 01-23-2023 [facility] Start: 01-23-2023 Admission procedure [facility] CBC W Auto Different ial panel - Blood [facility] Work Phone: CBC W Auto Different ial panel - Blood [facility] Erythrocyte mean cor puscular volume determination [facility] Hematocrit [Volume F raction] of Blood [facility] Hemoglobin [Mass/volume] in Blood [facility] Hepatitis B surface antigen measurement [facility] Work Phone: Hepatitis C antibody measurement [facility] Work Phone: HIV 1+2 Ab+HIV1 p24 Ag [Presence] in Serum or Plasma by Immunoassay [facility] Work Phone: Lead measurement, qu antitative, blood [facility] Leukocytes [#/volume] in Blood [facility] Mean corpuscular hem oglobin concentration determination [facility] Mean corpuscular hem oglobin determination [facility] Measurement of gluco se 2 hours after glucose challenge for glucose tolerance test [facility] bilirubin p soham [Mass/volume] - Serum or Plasma [facility] Work Phone: Neutrophil count [facility] Neutrophil percent d ifferential count [facility] Patient Education [facility] Work Phone: Patient referral [facility] Work Phone: Platelets [#/volume] in Blood [facility] Red blood cell count [facility] Red cell distributio n width determination [facility] Rubella IgG measurement [facility] Work Phone: Serologic test for syphilis [facility] Streptococcus agalac tiae [Presence] in Unspecified specimen by Organism specific culture [facility] T4 free measurement [facility] Thyroid stimulating hormone measurement [facility] Treponema sp Ab [Pre sence] in Serum [facility] Work Phone: Ultrasound scan for growth [facility] Immunizations Immunization Date Immunization Notes Care Provider Anant mejia 02-19-2025 tetanus toxoid, redu shelia diphtheria toxoid, and acellular pertussis vaccine, adsorbed Yudi Méndez SENIOR PROCESS ANALYST-C Work Phone: [facility] 10-27-2022 tetanus toxoid, redu shelia diphtheria toxoid, and acellular pertussis vaccine, adsorbed SENIOR PROCESS ANALYST-C Yudi Méndez SENIOR PROCESS ANALYST Work Phone: [facility] Payers Date Payer Category Payer Self-pay [id number] Unknown [id number] 1995 Unknown [id number] 1995 Unknown [id number] Unknown [id number] Unknown [employer] [id number] e [id number] Unknown [id number] 2.16.8 [id number] Unknown [id number] .16.8 40.1.990810.3.579.2.462 Unknown [id number] 2.16.8 40.1.178817.3.579.2.462 Unknown [id number] 2.16.8 40.1.405740.3.579.2.462 Unknown [id number] 2.16.8 40.1.962079.3.579.2.462 Unknown [id number] 2.16.8 40.1.107502.3.579.2.462 Unknown [id number] 2.16.8 40.1.852305.3.579.2.462 Unknown [id number] 2.16.8 40.1.063778.3.579.2.462 Unknown [id number] 2.16.8 40.1.359717.3.579.2.462 Unknown [id number] 2.16.8 40.1.345061.3.579.2.462 Unknown [id number] 2.16.8 40.1.848058.3.579.2.462 Unknown [id number] 2.16.8 40.1.980314.3.579.2.462 Unknown [id number] 2.16.8 40.1.757585.3.579.2.462 Unknown [id number] 2.16.8 40.1.824277.3.579.2.462 Unknown [id number] 2.16.8 40.1.625393.3.579.2.462 Unknown [id number] 2.16.8 40.1.424654.3.579.2.462 Unknown [id number] 2.16.8 40.1.278467.3.579.2.462 Unknown [id number] 2.16.8 40.1.551598.3.579.2.462 Unknown [id number] 2.16.8 40.1.254135.3.579.2.462 Unknown [id number] 2.16.8 [id number] Social History Date Type Detail Facility Start: 06-08-2022 End: 03-06-2023 Tobacco smoking status NHIS Unknown if ever smoked [facility] Start: 1995 Sex Assigned At Female [facility] Start: 09-20-2024 End: 03-23-2025 Tobacco smoking status NHIS Never smoked tobacco (finding) [facility] Sex Female [facility] Goals Date Patient Goal Desired Activity /State Clinical Notes 06-08-2022 to 05-07-2025 Note Date & Type Note Facility 05-07-2025 Progress note [facility] 05-07-2025 Progress note Note Date/Time May 07, 2025 4:08pm [facility] [address], [address] [place] [address] OFFICE VISIT Date of Service: 05/07/25 MR#: [id number] Acct: [id number] Name: JIMMY ATWOOD Rep #: [id number] : 1995 Provider: Dr. Jose Gay MD Age/Sex: 30/F Location: [facility] Status: Signed Intake Vital Signs 03/31/25 15:44 04/30/25 15:00 05/07/25 15:26 Height 5 ft 7 in 5 ft 7 in 5 ft 7 in Weight: 190 lb 9 oz BMI 29.8 BP 122/76 H Intake Visit Reasons: 39wk ob Plastic Outfitter Required: No Is patient in pain?: No Allergies Penicillins Allergy (Intermediate, Verified 05/07/25 15:26) Rash amoxicillin (From Augmentin) Adverse Reaction (Intermediate, Verified 05/07/25 15:26) Rash clavulanic acid (From Augmentin) Adverse Reaction (Intermediate, Verified 05/07/25 15:26) Rash sulfamethoxazole (From Bactrim) Adverse Reaction (Intermediate, Verified 05/07/25 15:26) Rash terbinafine (From Lamisil) Adverse Reaction (Intermediate, Verified 05/07/25 15:26) Rash trimethoprim (From Bactrim) Adverse Reaction (Intermediate, Verified 05/07/25 15:26) Rash Medications ?Medication ?Instructions ?Recorded ?Confirmed ?Type mv-mn 110-FA 180 mcg-om3 35 mg-dha 1 tab PO DAILY Chec k with primary 06/01/22 05/07/25 History 25 mg-epa 5 mg-fish oil chew tablet doctor ondansetron HCl 4 mg tablet 4 mg PO Q6-8H PRN nausea a nd 10/04/24 05/07/25 Rx vomiting #30 tabs Last Menstrual Period: 08/03/24 Zika: Zika virus screening: Negative : No PFSH PFSH Medical History GBS (group B 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), +RV culture, currently Surgical History Hx of tonsillectomy Family History Father Heart disease Social History adopted: No household members: spouse and children housing: house number of children: 1 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 Date Name GA/Weeks Outcome Route Bth Weight Infant Gen Labor Lgth Anesthesia Del Locatn Provider FOB 01/23/23 Cm 41 live - full term 9#1oz Male epid ural [facility] HPI 39wk ob Details: JIMMY ATWOOD is a 30 year old who presents for routine OB visit. OB Visit PARAG Calculator Estimated Delivery Date Method Current WG Current Estimate 05/14/25 Ultrasound #1 39w 0d Other Estimates 05/10/25 LMP (Certain) 39w 4d Expected Delivery Route/Plan Labor Preferences- CB/BF [...] Declines NIPT. would like some appts in [facility]. 11/01/24 -?-?-?-?-?-?-?-?-?-?-?-?- 12w 2d 150 lb 8 oz (-1 lb 8 oz) 114/75 Negative -?-?-?-?-?-?-?-?-?-?-?-?- Negative 164 -?-?-?-?-?-?-?-?-?-?-?-?- JV- no complaint s today. has a thyroid cyst that is visible and biopsy with Dr. Suazo on 11/26/24 . 11/27/24 -?-?-?-?-?-?-?-?-?-?-?-?- 16w 0d 158 lb 2 oz (+6 lb 2 oz) 101/67 Negative -?-?-?-?-?-?-?-?-?-?-?-?- Negative 150 -?-?-?-?-?-?-?-?-?-?-?-?- KW- no vb/sridhar ng. good fm. US scheduled. 01/01/25 -?-?-?-?-?-?-?-?-?-?-?-?- [...] oz (+30 lb 2 oz) 115/73 Negative -?-?-?-?-?-?-?-?-?-?-?-?- Negative 145 31 -?-?-?-?-?-?-?-?-?-?-?-?- Sm- no vb lof go od fm no reuglar ctx larc signed 03/19/25 -?-?-?-?-?-?-?-?-?-?-?-?- 32w 0d 183 lb (+31 lb) 104/67 Trace -?-?-?-?-?-?-?-?--?-?-?-?- Negative 150 33 -?-?-?-?-?-?-?-?-?-?-?-?- KW- no vb/lof/ct x. good fm. no concerns today 03/31/25 -?-?-?-?-?-?-?-?-?-?-?-?- 33w 5d 183 lb (+31 lb) 118/71 Negative -?-?-?-?-?-?-?-?-?-?-?-?- Negative 146 34 -?-?-?-?-?-?-?-?-?-?-?-?- MH-No vB, LOF. G ood FM. Denies concerns 04/16/25 -?-?-?-?-?-?-?-?-?-?-?-?- 36w 0d 187 lb 6 oz (+35 lb 6 oz) 119/73 Negative -?-?-?-?-?-?-?-?-?-?-?-?- Negative 156 36 Cephalic 1 -?-?-?-?-?-?-?-?-?-?-?-?- 0 -3 JV- no lof , vaginal bleeding, or dec fm. GBS today. 04/24/25 -?-?-?-?-?-?-?-?-?-?-?-?- 37w 1d 187 lb (+35 lb) 115/69 Negative -?-?-?-?-?-?-?-?-?-?-?-?- Negative 150 36 Cephalic 1 .5 -?-?-?-?-?-?-?-?-?-?-?-?- 20 -2 SM- no vb lof good fm no regular ctx 04/30/25 -?-?-?-?-?-?-?-?-?-?-?-?- 38w 0d 189 lb (+37 lb) 118/72 Negative -?-?-?-?-?-?-?-?-?-?-?-?- Negative 145 38 Cephalic 1 .5 -?-?-?-?-?-?-?-?-?-?-?-?- 20 -2 KW- no vb/ lof/ctx. good fm. no concerns today. 05/07/25 -?-?-?-?-?-?-?-?-?-?-?-?- 39w 0d 190 lb 9 oz (+38 lb 9 oz) 122/76 Negative -?-?-?-?-?-?-?-?-?-?-?-?- Negative 135 38 1.5 -?-?-?-?-?-?-?-?-?-?-?-?- 50 -2 Sm- no vb lof good fm no regular ctx ACOG First Trimester First Trimester: Desire for [...] Office Urine Glucose Negative Last Edit by Tania Jay on 05/07/25 15:29 Office Urine Protein Negative Last Edit by Tania Jay on 05/07/25 15:29 Coding Level of Care Code OB Routine Diagnoses Positive GBS test B95.1 Screening for lead exposure Z13.88 Thyroid nodule E04.1 Thyroid cyst E04.1 Encounter for supervision of other normal in third trimester Z34.83 Normal : other normal Trimester: third trimester 39 weeks gestation of Z3A.39 Weeks of gestation: 39 weeks Assessment and Plan Assessment and Plan (1) Positive GBS test: Status: Acute Comment: Allergic to PNC, resistant to Clinda. Will need vanc in labor (2) Screening for lead exposure: Status: Acute Comment: negative (3) Thyroid nodule: Status: Acute Comment: Patient is [...] in the procedures section of today's note. (4) Thyroid cyst: Status: Acute (5) Supervision of normal : Status: Acute Qualifiers: Normal : other normal Trimester: third trimester Qualified Code(s): Z34.83 - Encounter for supervision of other normal , third trimester Comment: PRR,, PARAG 05/10/25, girl PC Cm, Sudheer (6) : Status: Acute Qualifiers: Weeks of gestation: 39 weeks Qualified Code(s): Z3A.39 - 39 weeks gestation of Comment: declines NIPT & Carrier testing Orders: Orders POC Urinalysis 2 Dip (Clinic) Today 05/07/25 1390 <Electronically signed by Nelly del rio MD> Date _ Nelly Kumar Signature: Date (if applicable) CC: ~ [facility] Work Phone: 1(351) 725-385909-10-2025 Progress [facility] [address] [place] [address], [address] [place] [address] OFFICE VISIT Date of Service: 04/30/25 MR#: [id number] Acct: [id number] Name: JIMMY ATWOOD Rep #: [id number] : 1995 Provider: QUITA Goldman Age/Sex: 30/F Location: [facility] Status: Signed Intake Vital Signs 03/31/25 15:44 04/24/25 13:50 04/30/25 15:00 Height 5 ft 7 in 5 ft 7 in 5 ft 7 in Weight: 189 lb BMI 29.6 BP 118/72 Intake Visit Reasons: 38wk ob Chief Complaint: 38wk OB Plastic Outfitter Required: No Is patient in pain?: No Allergies Penicillins Allergy (Intermediate, Verified 04/30/25 14:58) Rash amoxicillin (From Augmentin) Adverse Reaction (Intermediate, Verified 04/30/25 14:58) Rash clavulanic acid (From Augmentin) Adverse Reaction (Intermediate, Verified 04/30/25 14:58) Rash sulfamethoxazole (From Bactrim) Adverse Reaction (Intermediate, Verified 04/30/25 14:58) Rash terbinafine (From Lamisil) Adverse Reaction (Intermediate, Verified 04/30/25 14:58) Rash trimethoprim (From Bactrim) Adverse Reaction (Intermediate, Verified 04/30/25 14:58) Rash Medications ?Medication ?Instructions ?Recorded ?Confirmed ?Type mv-mn 110-FA 180 mcg-om3 35 mg-dha 1 tab PO DAILY Chec k with primary 06/01/22 04/30/25 History 25 mg-epa 5 mg-fish oil chew tablet doctor ondansetron HCl 4 mg tablet 4 mg PO Q6-8H PRN nausea a nd 10/04/24 04/30/25 Rx vomiting #30 tabs Last Menstrual Period: 08/03/24 : No PFSH PFSH Medical History GBS (group B 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), +RV culture, currently Surgical History Hx of tonsillectomy Family History Father Heart disease Social History adopted: No household members: spouse and children housing: house number of children: 1 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 Date Name GA/Weeks Outcome Route Bth Weight Gen Labor Lgth Ane sthesia Del Locatn Provider FOB 01/23/23 Cm 41 live - full term 9#1oz Male epid ural [facility] HPI 38wk ob Details: JIMMY ATWOOD is a 30 year old who presents for routine OB visit. OB Visit PARAG Calculator Estimated Delivery Date Method Current WG Current Estimate 05/14/25 Ultrasound #1 38w 0d Other Estimates 05/10/25 LMP (Certain) 38w 4d Expected Delivery Route/Plan Labor Preferences- CB/BF [...] current plan of care details and appropriate ordersplaced. Relevant counseling for the gestational age provided. [...] Declines NIPT. would like some appts in [facility]. 11/01/24 -?-?-?-?-?-?-?-?-?-?-?-?- 12w 2d 150 lb 8 oz (-1 lb 8 oz) 114/75 Negative -?-?-?-?-?-?-?-?-?-?-?-?- Negative 164 -?-?-?-?-?-?-?-?-?-?-?-?- JV- no complaint s today. has a thyroid cyst that is visible and biopsy with Dr. Suazo on 11/26/24 . 11/27/24 -?-?-?-?-?-?-?-?-?-?-?-?- 16w 0d 158 lb 2 oz (+6 lb 2 oz) 101/67 Negative -?-?-?-?-?-?-?-?-?-?-?-?- Negative 150 -?-?-?-?-?-?-?-?-?-?-?-?- KW- no vb/cragriseldai ng. good fm. US scheduled. 01/01/25 -?-?-?-?-?-?-?-?-?-?-?-?- [...] oz (+30 lb 2 oz) 115/73 Negative -?-?-?-?-?-?-?-?-?-?-?-?- Negative 145 31 -?-?-?-?-?-?-?-?-?-?-?-?- Sm- no vb lof go od fm no reuglar ctx larc signed 03/19/25 -?-?-?-?-?-?-?-?-?-?-?-?- 32w 0d 183 lb (+31 lb) 104/67 Trace -?-?-?-?-?-?-?-?-?-?-?-?- Negative 150 33 -?-?-?-?-?-?-?-?-?-?-?-?- KW- no vb/lof/ct x. good fm. no concerns today 03/31/25 -?-?-?-?-?-?-?-?-?-?-?-?- 33w 5d 183 lb (+31 lb) 118/71 Negative -?-?-?-?-?-?-?-?-?-?-?-?- Negative 146 34 -?-?-?-?-?-?-?-?-?-?-?-?- MH-No vB, LOF. G ood FM. Denies concerns 04/16/25 -?-?-?-?-?-?-?-?-?-?-?-?- 36w 0d 187 lb 6 oz (+35 lb 6 oz) 119/73 Negative -?-?-?-?-?-?-?-?-?-?-?-?- Negative 156 36 Cephalic 1 -?-?-?-?-?-?-?-?-?-?-?-?- 0 -3 JV- no lof , vaginal bleeding, or dec fm. GBS today. 04/24/25 -?-?-?-?-?-?-?-?-?-?-?-?- 37w 1d 187 lb (+35 lb) 115/69 Negative -?-?-?-?-?-?-?-?-?-?-?-?- Negative 150 36 Cephalic 1 .5 -?-?-?-?-?-?-?-?-?-?-?-?- SM- no vb lof good fm no regular ctx 04/30/25 -?-?-?-?-?-?-?-?-?-?-?-?- 38w 0d 189 lb (+37 lb) 118/72 Negative -?-?-?-?-?-?-?-?-?-?-?-?- Negative 145 38 Cephalic 1 .5 -?-?-?-?-?-?-?-?-?-?-?-?- KW- no vb/ lof/ctx. good fm. no concerns today. ACOG First Trimester First Trimester: Desire for , Alcohol, Tobacco Cessation, Illicit/Recreational Drug/Substance Use, Intimate Partner Violence, Barriers to care, Unstable Housing, Communication Barriers, Environmental/Work Hazards, Anticipated Course of Care, Toxoplasmosis Precations, Use of Any med ications, Sexual activity, Exercise, Dental Care, Sauna/Hot tub [...] Signs and Symptoms of Preeclampsia, Labor Signs, InfantFeeding No , Education and Family Medical Leave [...] Office Urine Glucose Negative Last Edit by Julia Melgar on 04/30/25 15:04 Office Urine Protein Negative Last Edit by Julia Melgar on 04/30/25 15:04 Coding Level of Care Code OB Routine Diagnoses Positive GBS test B95.1 Screening for lead exposure Z13.88 Thyroid nodule E04.1 Thyroid cyst E04.1 Encounter for supervision of other normal in third trimester Z34.83 Normal : other normal Trimester: third trimester 38 weeks gestation of Z3A.38 Weeks of gestation: 38 weeks Assessment and Plan Assessment and Plan (1) Positive GBS test: Status: Acute Comment: Allergic to PNC, resistant to Clinda. Will need vanc in labor (2) Screening for lead exposure: Status: Acute Comment: negative (3) Thyroid nodule: Status: Acute Comment: Patient is [...] of the TI-RADS grading system. It should benoted that patient's thyroid nodule was rated a [...] the procedure was undertaken in uncomplicated fashion du ring today's visit. Complete details are given in the procedures section of today's note. (4) Thyroid cyst: Status: Acute (5) Supervision of normal : Status: Acute Qualifiers: Normal : other normal Trimester: third trimester Qualified Code(s): Z34.83 - Encounter for supervision of other normal , third trimester Comment: PRR,, PARAG 05/10/25, girl PC Cm, Sudheer (6) : Status: Acute Qualifiers: Weeks of gestation: 38 weeks Qualified Code(s): Z3A.38 - 38 weeks gestation of Comment: declines NIPT & Carrier testing Orders: Orders POC Urinalysis 2 Dip (Clinic) Today Plan Details Additional Comments: ACOG trimester education reviewed and updated. see problem list details for updated plan management information and see below for orders placed atthis visit. [place] appropriate handout given. 04/30/25 1512 s CNM> Date _ Manjula Goldman CNM Cosigner Signature: Date (if applicable) CC: ~ [facility]09-10-2025 Progress note Author Manjula Goldman [facility] Note Date/Time April 30, 2025 3:12pm [facility] [address], [address] [place] [address] OFFICE VISIT Date of Service: 04/30/25 MR#: [id number] Acct: [id number] Name: JIMMY ATWOOD Rep #: [id number] : 1995 Provider: QUITA Goldman Age/Sex: 30/F Location: [facility] Status: Signed Intake Vital Signs 03/31/25 15:44 04/24/25 13:50 04/30/25 15:00 Height 5 ft 7 in 5 ft 7 in 5 ft 7 in Weight: 189 lb BMI 29.6 BP 118/72 Intake Visit Reasons: 38wk ob Chief Complaint: 38wk OB Plastic Outfitter Required: No Is patient in pain?: No Allergies Penicillins Allergy (Intermediate, Verified 04/30/25 14:58) Rash amoxicillin (From Augmentin) Adverse Reaction (Intermediate, Verified 04/30/25 14:58) Rash clavulanic acid (From Augmentin) Adverse Reaction (Intermediate, Verified 04/30/25 14:58) Rash sulfamethoxazole (From Bactrim) Adverse Reaction (Intermediate, Verified 04/30/25 14:58) Rash terbinafine (From Lamisil) Adverse Reaction (Intermediate, Verified 04/30/25 14:58) Rash trimethoprim (From Bactrim) Adverse Reaction (Intermediate, Verified 04/30/25 14:58) Rash Medications ?Medication ?Instructions ?Recorded ?Confirmed ?Type mv-mn 110-FA 180 mcg-om3 35 mg-dha 1 tab PO DAILY Chec k with primary 06/01/22 04/30/25 History 25 mg-epa 5 mg-fish oil chew tablet doctor ondansetron HCl 4 mg tablet 4 mg PO Q6-8H PRN nausea a nd 10/04/24 04/30/25 Rx vomiting #30 tabs Last Menstrual Period: 08/03/24 : No PFSH PFSH Medical History GBS (group B 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), +RV culture, currently Surgical History Hx of tonsillectomy Family History Father Heart disease Social History adopted: No household members: spouse and children housing: house number of children: 1 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 Date Name GA/Weeks Outcome Route Bth Weight Infant Gen Labor Lgth Ane sthesia Del Locatn Provider FOB 01/23/23 Cm 41 live - full term 9#1oz Male epid ural [facility] HPI 38wk ob Details: JIMMY ATWOOD is a 30 year old who presents for routine OB visit. OB Visit PARAG Calculator Estimated Delivery Date Method Current WG Current Estimate 05/14/25 Ultrasound #1 38w 0d Other Estimates 05/10/25 LMP (Certain) 38w 4d Expected Delivery Route/Plan Labor Preferences- CB/BF [...] Declines NIPT. would like some appts in [facility]. 11/01/24 -?-?-?-?-?-?-?-?-?-?-?-?- 12w 2d 150 lb 8 [...] oz (+30 lb 2 oz) 115/73 Negative -?-?-?-?-?-?-?-?-?-?-?-?- Negative 145 31 -?-?-?-?-?-?-?-?-?-?-?-?- Sm- no vb lof go od fm no reuglar ctx larc signed 03/19/25 -?-?-?-?-?-?-?-?-?-?-?-?- 32w 0d 183 lb (+31 lb) 104/67 Trace -?-?-?-?-?-?-?-?-?-?-?-?- Negative 150 33 -?-?-?-?-?-?-?-?-?-?-?-?- KW- no vb/lof/ct x. good fm. no concerns today 03/31/25 -?-?-?-?-?-?-?-?-?-?-?-?- 33w 5d 183 lb (+31 lb) 118/71 Negative -?-?-?-?-?-?-?-?-?-?-?-?- Negative 146 34 -?-?-?-?-?-?-?-?-?-?-?-?- MH-No vB, LOF. G ood FM. Denies concerns 04/16/25 -?-?-?-?-?-?-?-?-?-?-?-?- 36w 0d 187 lb 6 oz (+35 lb 6 oz) 119/73 Negative -?-?-?-?-?-?-?-?-?-?-?-?- Negative 156 36 Cephalic 1 -?-?-?-?-?-?-?-?-?-?-?-?- 0 -3 JV- no lof , vaginal bleeding, or dec fm. GBS today. 04/24/25 -?-?-?-?-?-?-?-?-?-?-?-?- 37w 1d 187 lb (+35 lb) 115/69 Negative -?-?-?-?-?-?-?-?-?-?-?-?- Negative 150 36 Cephalic 1 .5 -?-?-?-?-?-?-?-?-?-?-?-?- 20 -2 SM- no vb lof good fm no regular ctx 04/30/25 -?-?-?-?-?-?-?-?-?-?-?-?- 38w 0d 189 lb (+37 lb) 118/72 Negative -?-?-?-?-?-?-?-?-?-?-?-?- Negative 145 38 Cephalic 1 .5 -?-?-?-?-?-?-?-?-?-?-?-?- 20 -2 KW- no vb/ lof/ctx. good fm. no concerns today. ACOG First Trimester First Trimester: Desire [...] Office Urine Glucose Negative Last Edit by Julia Melgar on 04/30/25 15:04 Office Urine Protein Negative Last Edit by Julia Melgar on 04/30/25 15:04 Coding Level of Care Code OB Routine Diagnoses Positive GBS test B95.1 Screening for lead exposure Z13.88 Thyroid nodule E04.1 Thyroid cyst E04.1 Encounter for supervision of other normal in third trimester Z34.83 Normal : other normal Trimester: third trimester 38 weeks gestation of Z3A.38 Weeks of gestation: 38 weeks Assessment and Plan Assessment and Plan (1) Positive GBS test: Status: Acute Comment: Allergic to PNC, resistant to Clinda. Will need vanc in labor (2) Screening for lead exposure: Status: Acute Comment: negative (3) Thyroid nodule: Status: Acute Comment: Patient is [...] in the procedures section of today's note. (4) Thyroid cyst: Status: Acute (5) Supervision of normal : Status: Acute Qualifiers: Normal : other normal Trimester: third trimester Qualified Code(s): Z34.83 - Encounter for supervision of other normal , third trimester Comment: PRR,, PARAG 05/10/25, girl THU Pabon, Sudheer (6) : Status: Acute Qualifiers: Weeks of gestation: 38 weeks Qualified Code(s): Z3A.38 - 38 weeks gestation of Comment: declines NIPT & Carrier testing Orders: Orders POC Urinalysis 2 Dip (Clinic) Today Plan Details Additional Comments: ACOG trimester education reviewed and updated. see problem list details for updated plan management information and see below for orders placed at this visit. [place] appropriate handout given. 04/30/25 7308 <Electronically signed by Manjula waters CNM> Date _ Manjula Goldman CNM Cosigner Signature: Date (if applicable) CC: ~ [facility] Work Phone: 1(660) 170-233809-04-2025 Progress [facility] [address], [place] [id number] OFFICE VISIT Date of Service: 04/24/25 MR#: [id number] Acct: [id number] Name: JIMMY ATWOOD Rep #: [id number] : 1995 Provider: Dr. Jose Gay MD Age/Sex: 30/F Location: [facility] [place] Status: Signed Intake Vital Signs 03/31/25 15:44 04/16/25 15:28 04/24/25 13:50 Height 5 ft 7 in 5 ft 7 in 5 ft 7 in Weight: 187 lb BMI 29.2 BP 115/69 Intake Visit Reasons: 37wk ob Plastic Outfitter Required: No Is patient in pain?: No Allergies Penicillins Allergy (Intermediate, Verified 04/24/25 13:56) Rash amoxicillin (From Augmentin) Adverse Reaction (Intermediate, Verified 04/24/25 13:56) Rash clavulanic acid (From Augmentin) Adverse Reaction (Intermediate, Verified 04/24/25 13:56) Rash sulfamethoxazole (From Bactrim) Adverse Reaction (Intermediate, Verified 04/24/25 13:56) Rash terbinafine (From Lamisil) Adverse Reaction (Intermediate, Verified 04/24/25 13:56) Rash trimethoprim (From Bactrim) Adverse Reaction (Intermediate, Verified 04/24/25 13:56) Rash Medications ?Medication ?Instructions ?Recorded ?Confirmed ?Type mv-mn 110-FA 180 mcg-om3 35 mg-dha 1 tab PO DAILY Chec k with primary 06/01/22 04/24/25 History 25 mg-epa 5 mg-fish oil chew tablet doctor ondansetron HCl 4 mg tablet 4 mg PO Q6-8H PRN nausea a nd 10/04/24 04/24/25 Rx vomiting #30 tabs Last Menstrual Period: 08/03/24 Zika: Zika virus screening: Negative : No PFSH PFSH Medical History GBS (group B 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), +RV culture, currently Surgical History Hx of tonsillectomy Family History Father Heart disease Social History adopted: No household members: spouse and children housing: house number of children: 1 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 Date Name GA/Weeks Outcome Route Bth Weight Infant Gen Labor Lgth Anesthesia Del Locatn Provider FOB 01/23/23 Pabon 41 live - full term 9#1oz Male epid ural [facility] Payal Willard HPI 37wk ob Details: JIMMY ATWOOD is a 30 year old who presents for routine OB visit. OB Visit PARAG Calculator Estimated Delivery Date Method Current WG Current Estimate 05/14/25 Ultrasound #1 37w 1d Other Estimates 05/10/25 LMP (Certain) 37w 5d Expected Delivery Route/Plan Labor Preferences- CB/BF classes: [...] current plan of care details and appropriate ordersplaced. Relevant counseling for the gestational age provided. [...] Declines NIPT. would like some appts in [facility]. 11/01/24 -?-?-?-?-?-?-?-?-?-?-?-?- 12w 2d 150 lb 8 oz (-1 lb 8 oz) 114/75 Negative -?-?-?-?-?-?-?-?-?-?-?-?- Negative 164 -?-?-?--?-?-?-?-?-?-?-?-?- JV- no complaint s today. has a [...] oz (+30 lb 2 oz) 115/73 Negative -?-?-?-?-?-?-?-?-?-?-?-?- Negative 145 31 -?-?-?-?-?-?-?-?-?-?-?-?- Sm- no vb lof go od fm no reuglar ctx larc signed 03/19/25 -?-?-?-?-?-?-?-?-?-?-?-?- 32w 0d 183 lb (+31 lb) 104/67 Trace -?-?-?-?-?-?-?-?-?-?-?-?- Negative 150 33 -?-?-?-?-?-?-?-?-?-?-?-?- KW- no vb/lof/ct x. good fm. no concerns today 03/31/25 -?-?-?-?-?-?-?-?-?-?-?-?- 33w 5d 183 lb (+31 lb) 118/71 Negative -?-?-?-?-?-?-?-?-?-?-?-?- Negative 146 34 -?-?-?-?-?-?-?-?-?-?-?-?- MH-No vB, LOF. G ood FM. Denies concerns 04/16/25 -?-?-?-?-?-?-?-?-?-?-?-?- 36w 0d 187 lb 6 oz (+35 lb 6 oz) 119/73 Negative -?-?-?-?-?-?-?-?-?-?-?-?- Negative 156 36 Cephalic 1 -?-?-?-?-?-?-?-?-?-?-?-?- 0 -3 JV- no lof , vaginal bleeding, or dec fm. GBS today. 04/24/25 -?-?-?-?-?-?-?-?-?-?-?-?- 37w 1d 187 lb (+35 lb) 115/69 Negative -?-?-?-?-?-?-?-?-?-?-?-?- Negative 150 36 Cephalic 1 .5 -?-?-?-?-?-?-?-?-?-?-?-?- 20 -2 SM- no vb lof good fm no regular ctx ACOG First Trimester First Trimester: Desire for , Alcohol, Tobacco Cessation, Illicit/Recreational Drug/Substance Use, Intimate Partner Violence, Barriers to care, Unstable Housing, Communication Barriers, Environmental/Work Hazards, Anticipated Course of Care, Toxoplasmosis Precations, Use of Any med ications, Sexual activity, Exercise, Dental Care, Sauna/Hot tub [...] Signs and Symptoms of Preeclampsia, Labor Signs, InfantFeeding No , [place] Education and Family Medical Leave or Disability Forms Results POC Urinalysis 2 Dip (Clinic) Office Urine Glucose Negative Last Edit by Tania Jay on 04/24/25 13:58 Office Urine Protein Negative Last Edit by Tania Jay on 04/24/25 13:58 Coding Level of Care Code OB Routine Diagnoses Positive GBS test B95.1 Screening for lead exposure Z13.88 Thyroid nodule E04.1 Thyroid cyst E04.1 Encounter for supervision of other normal in third trimester Z34.83 Normal : other normal Trimester: third trimester 37 weeks gestation of Z3A.37 Weeks of gestation: 37 weeks Assessment and Plan Assessment and Plan (1) Positive GBS test: Status: Acute Comment: Allergic to PNC, resistant to Clinda. Will need vanc in labor (2) Screening for lead exposure: Status: Acute Comment: negative (3) Thyroid nodule: Status: Acute Comment: Patient is [...] of the TI-RADS grading system. It should benoted that patient's thyroid nodule was rated a [...] the procedure was undertaken in uncomplicated fashion du ring today's visit. Complete details are given in the procedures section of today's note. (4) Thyroid cyst: Status: Acute (5) Supervision of normal : Status: Acute Qualifiers: Normal : other normal Trimester: third trimester Qualified Code(s): Z34.83 - Encounter for supervision of other normal , third trimester Comment: PRR,, PARAG 05/10/25, girl PC Cm, Sudheer (6) : Status: Acute Qualifiers: Weeks of gestation: 37 weeks Qualified Code(s): Z3A.37 - 37 weeks gestation of Comment: declines NIPT & Carrier testing Orders: Orders POC Urinalysis 2 Dip (Clinic) Today 04/24/25 1421 quang JACOB> Date _ Nelly Gay MD Cosigner Signature: Date (if applicable) CC: ~ [facility]09-04-2025 Progress note Author Nelly Gay [facility] Note Date/Time April 24, 2025 2:21pm [facility] [address] [place] [address], [address] [place] [address] OFFICE VISIT Date of Service: 04/24/25 MR#: [id number] Acct: [id number] Name: JIMMY ATWOOD Rep #: [id number] : 1995 Provider: Dr. Jose Gay MD Age/Sex: 30/F Location: [facility] [place] Status: Signed Intake Vital Signs 03/31/25 15:44 04/16/25 15:28 04/24/25 13:50 Height 5 ft 7 in 5 ft 7 in 5 ft 7 in Weight: 187 lb BMI 29.2 BP 115/69 Intake Visit Reasons: 37wk ob Plastic Outfitter Required: No Is patient in pain?: No Allergies Penicillins Allergy (Intermediate, Verified 04/24/25 13:56) Rash amoxicillin (From Augmentin) Adverse Reaction (Intermediate, Verified 04/24/25 13:56) Rash clavulanic acid (From Augmentin) Adverse Reaction (Intermediate, Verified 04/24/25 13:56) Rash sulfamethoxazole (From Bactrim) Adverse Reaction (Intermediate, Verified 04/24/25 13:56) Rash terbinafine (From Lamisil) Adverse Reaction (Intermediate, Verified 04/24/25 13:56) Rash trimethoprim (From Bactrim) Adverse Reaction (Intermediate, Verified 04/24/25 13:56) Rash Medications ?Medication ?Instructions ?Recorded ?Confirmed ?Type mv-mn 110-FA 180 mcg-om3 35 mg-dha 1 tab PO DAILY Chec k with primary 06/01/22 04/24/25 History 25 mg-epa 5 mg-fish oil chew tablet doctor ondansetron HCl 4 mg tablet 4 mg PO Q6-8H PRN nausea a nd 10/04/24 04/24/25 Rx vomiting #30 tabs Last Menstrual Period: 08/03/24 Zika: Zika virus screening: Negative : No PFSH PFSH Medical History GBS (group B 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), +RV culture, currently Surgical History Hx of tonsillectomy Family History Father Heart disease Social History adopted: No household members: spouse and children housing: house number of children: 1 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 Date Name GA/Weeks Outcome Route Bth Weight Gen Labor Lgth Anesthesia Del Locatn Provider FOB 01/23/23 Cm 41 live - full term 9#1oz Male epid ural [facility] Payal Willard HPI 37wk ob Details: JIMMY ATWOOD is a 30 year old who presents for routine OB visit. OB Visit PARAG Calculator Estimated Delivery Date Method Current WG Current Estimate 05/14/25 Ultrasound #1 37w 1d Other Estimates 05/10/25 LMP (Certain) 37w 5d Expected Delivery Route/Plan Labor Preferences- CB/BF classes: [...] Declines NIPT. would like some appts in [facility]. 11/01/24 -?-?-?-?-?-?-?-?-?-?-?-?- 12w 2d 150 lb 8 oz (-1 lb 8 oz) 114/75 Negative -?-?-?-?-?-?-?-?-?-?-?-?- Negative 164 -?-?-?--?-?-?-?-?-?-?-?-?- JV- no complaint s today. has a [...] oz (+30 lb 2 oz) 115/73 Negative -?-?-?-?-?-?-?-?-?-?-?-?- Negative 145 31 -?-?-?-?-?-?-?-?-?-?-?-?- Sm- no vb lof go od fm no reuglar ctx larc signed 03/19/25 -?-?-?-?-?-?-?-?-?-?-?-?- 32w 0d 183 lb (+31 lb) 104/67 Trace -?-?-?-?-?-?-?-?-?-?-?-?- Negative 150 33 -?-?-?-?-?-?-?-?-?-?-?-?- KW- no vb/lof/ct x. good fm. no concerns today 03/31/25 -?-?-?-?-?-?-?-?-?-?-?-?- 33w 5d 183 lb (+31 lb) 118/71 Negative -?-?-?-?-?-?-?-?-?-?-?-?- Negative 146 34 -?-?-?-?-?-?-?-?-?-?-?-?- MH-No vB, LOF. G ood FM. Denies concerns 04/16/25 -?-?-?-?-?-?-?-?-?-?-?-?- 36w 0d 187 lb 6 oz (+35 lb 6 oz) 119/73 Negative -?-?-?-?-?-?-?-?-?-?-?-?- Negative 156 36 Cephalic 1 -?-?-?-?-?-?-?-?-?-?-?-?- 0 -3 JV- no lof , vaginal bleeding, or dec fm. GBS today. 04/24/25 -?-?-?-?-?-?-?-?-?-?-?-?- 37w 1d 187 lb (+35 lb) 115/69 Negative -?-?-?-?-?-?-?-?-?-?-?-?- Negative 150 36 Cephalic 1 .5 -?-?-?-?-?-?-?-?-?-?-?-?- 20 -2 SM- no vb lof good fm no regular ctx ACOG First Trimester First Trimester: Desire for [...] Signs and Symptoms of Preeclampsia, Labor Signs, Feeding No , [place] Education and Family Medical Leave or Disability Forms Results POC Urinalysis 2 Dip (Clinic) Office Urine Glucose Negative Last Edit by Tania Jay on 04/24/25 13:58 Office Urine Protein Negative Last Edit by Tania Jay on 04/24/25 13:58 Coding Level of Care Code OB Routine Diagnoses Positive GBS test B95.1 Screening for lead exposure Z13.88 Thyroid nodule E04.1 Thyroid cyst E04.1 Encounter for supervision of other normal in third trimester Z34.83 Normal : other normal Trimester: third trimester 37 weeks gestation of Z3A.37 Weeks of gestation: 37 weeks Assessment and Plan Assessment and Plan (1) Positive GBS test: Status: Acute Comment: Allergic to PNC, resistant to Clinda. Will need vanc in labor (2) Screening for lead exposure: Status: Acute Comment: negative (3) Thyroid nodule: Status: Acute Comment: Patient is [...] in the procedures section of today's note. (4) Thyroid cyst: Status: Acute (5) Supervision of normal : Status: Acute Qualifiers: Normal : other normal Trimester: third trimester Qualified Code(s): Z34.83 - Encounter for supervision of other normal , third trimester Comment: PRR,, PARAG 05/10/25, girl PC Cm, Sudheer (6) : Status: Acute Qualifiers: Weeks of gestation: 37 weeks Qualified Code(s): Z3A.37 - 37 weeks gestation of Comment: declines NIPT & Carrier testing Orders: Orders POC Urinalysis 2 Dip (Clinic) Today 04/24/25 1421 <Electronically signed by Nelly del rio MD> Date _ Nelly Kumar Signature: Date (if applicable) CC: ~ [facility] Work Phone: 1(535) [phone] Progress [facility] [address], [address] [place] [address] OFFICE VISIT Date of Service: 04/16/25 MR#: [id number] Acct: [id number] Name: JIMMY ATWOOD Rep #: [id number] : 1995 Provider: Dr. Isabel Escobar DO Age/Sex: 30/F Location: [facility] [place] Status: Signed Intake Vital Signs 03/07/25 16:14 03/31/25 15:44 04/16/25 15:28 04/16/25 15:28 Height 5 ft 7 in 5 ft 7 in 5 ft 7 in 5 ft 7 in Weight: 187 lb 6 oz BMI 29.3 BP 119/73 Intake Visit Reasons: 36wk ob Plastic Outfitter Required: No Is patient in pain?: No Allergies Penicillins Allergy (Intermediate, Verified 04/16/25 15:27) Rash amoxicillin (From Augmentin) Adverse Reaction (Intermediate, Verified 04/16/25 15:27) Rash clavulanic acid (From Augmentin) Adverse Reaction (Intermediate, Verified 04/16/25 15:27) Rash sulfamethoxazole (From Bactrim) Adverse Reaction (Intermediate, Verified 04/16/25 15:27) Rash terbinafine (From Lamisil) Adverse Reaction (Intermediate, Verified 04/16/25 15:27) Rash trimethoprim (From Bactrim) Adverse Reaction (Intermediate, Verified 04/16/25 15:27) Rash Medications ?Medication ?Instructions ?Recorded ?Confirmed ?Type mv-mn 110-FA 180 mcg-om3 35 mg-dha 1 tab PO DAILY Chec k with primary 06/01/22 04/16/25 History 25 mg-epa 5 mg-fish oil chew tablet doctor ondansetron HCl 4 mg tablet 4 mg PO Q6-8H PRN nausea a nd 10/04/24 04/16/25 Rx vomiting #30 tabs Last Menstrual Period: 08/03/24 Zika: Zika virus screening: Negative : No PFSH PFSH Medical History GBS (group B 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), +RV culture, currently Surgical History Hx of tonsillectomy Family History Father Heart disease Social History adopted: No household members: spouse and children housing: house number of children: 1 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 Date Name GA/Weeks Outcome Route Bth Weight Gen Labor Lgth Anesthesia Del Locatn Provider FOB 01/23/23 Cm 41 live - full term 9#1oz Male epid ural [facility] Payal Hutchins Sudheer HPI 36wk ob Details: JIMMY ATWOOD is a 30 year old who presents for routine OB visit. OB Visit PARAG Calculator Estimated Delivery Date Method Current WG Current Estimate 05/14/25 Ultrasound #1 36w 0d Other Estimates 05/10/25 LMP (Certain) 36w 4d Expected Delivery Route/Plan Labor Preferences- CB/BF [...] current plan of care details and appropriate ordersplaced. Relevant counseling for the gestational age provided. [...] Declines NIPT. would like some appts in [facility]. 11/01/24 -?-?-?-?-?-?-?-?-?-?-?-?- 12w 2d 150 lb 8 oz (-1 lb 8 oz) 114/75 Negative -?-?-?-?-?-?-?-?-?-?--?-?- Negative 164 -?-?-?-?-?-?-?-?-?-?-?-?- JV- no complaint s [...] (+22 lb) 118/69 Negative -?-?-?-?-?-?-?-?-?-?-?-?- Negative 156 -?-?--?-?-?-?-?-?-?-?-?-?- JV- patient want s to know if fails 1 hr if can just do glucose testing. understands risks. 02/19/25 -?-?-?-?-?-?-?-?-?-?-?-?- 28w 0d 178 lb (+26 lb) 111/71 Negative -?-?-?-?-?-?-?-?-?-?-?-?- Negative 145 29 -?-?-?-?-?-?-?-?-?-?-?-?- KW- no vb/lof/ct x. good fm. Tdap today. 03/07/25 -?-?-?-?-?-?-?-?-?-?-?-?- 30w 2d 182 lb 2 oz (+30 lb 2 oz) 115/73 Negative -?-?-?-?-?-?-?-?-?-?-?-?- Negative 145 31 -?-?-?-?-?-?-?-?-?-?-?-?- Sm- no vb lof go od fm no reuglar ctx larc signed 03/19/25 -?-?-?-?-?-?-?-?-?-?-?-?- 32w 0d 183 lb (+31 lb) 104/67 Trace -?-?-?-?-?-?-?-?-?-?-?-?- Negative 150 33 -?-?-?-?-?-?-?-?-?-?-?-?- KW- no vb/lof/ct x. good fm. no concerns today 03/31/25 -?-?-?-?-?-?-?-?-?-?-?-?- 33w 5d 183 lb (+31 lb) 118/71 Negative -?-?-?-?-?-?-?-?-?-?-?-?- Negative 146 34 -?-?-?-?-?-?-?-?-?-?-?-?- MH-No vB, LOF. G ood FM. Denies concerns 04/16/25 -?-?-?-?-?-?-?-?-?-?-?-?- 36w 0d 187 lb 6 oz (+35 lb 6 oz) 119/73 -?-?-?-?-?-?-?-?-?-?-?-?- 156 36 Cephalic 1 -?-?-?-?-?-?-?-?-?-?-?-?- 0 -3 JV- no lof , vaginal bleeding, or dec fm. GBS today. ACOG First Trimester First Trimester: Desire for , Alcohol, Tobacco Cessation, Illicit/Recreational Drug/Substance Use, Intimate Partner Violence, Barriers to care, Unstable Housing, Communication Barriers, Environmental/Work Hazards, Anticipated Course of Care, Toxoplasmosis Precations, Use of Any med ications, Sexual activity, Exercise, Dental Care, Sauna/Hot tub [...] Signs and Symptoms of Preeclampsia, Labor Signs, InfantFeeding No , Education and Family Medical Leave or Disability Forms Coding Level of Care Code OB Routine Diagnoses Screening for lead exposure Z13.88 Thyroid nodule E04.1 Thyroid cyst E04.1 Encounter for supervision of other normal in third trimester Z34.83 Normal : other normal Trimester: third trimester 36 weeks gestation of Z3A.36 Weeks of gestation: 36 weeks Assessment and Plan Assessment and Plan (1) Screening for lead exposure: Status: Acute Comment: negative (2) Thyroid nodule: Status: Acute Comment: Patient [...] of the TI-RADS grading system. It should benoted that patient's thyroid nodule was rated a [...] the procedure was undertaken in uncomplicated fashion du ring today's visit. Complete details are given in the procedures section of today's note. (3) Thyroid cyst: Status: Acute (4) Supervision of normal : Status: Acute Qualifiers: Normal : other normal Trimester: third trimester Qualified Code(s): Z34.83 - Encounter for supervision of other normal , third trimester Comment: PRR,, PARAG 05/10/25, girl THU Pabon, Sudheer (5) : Status: Acute Qualifiers: Weeks of gestation: 36 weeks Qualified Code(s): Z3A.36 - 36 weeks gestation of Comment: declines NIPT & Carrier testing Orders: Orders POC Urinalysis 2 Dip (Clinic) Today Culture, Group B Streptococcus Today Z34.83 - Encounter for supervision of other normal , third trimester 04/16/25 1544 e Kimi DO> Date _ Carline Escobar DO Cosigner Signature: Date (if applicable) CC: ~ [facility]08-27-2025 Progress note Author Carline Bolden [facility] Note Date/Time April 16, 2025 3: 44pm [facility] [address], [address] [place] [address] OFFICE VISIT Date of Service: 04/16/25 MR#: [id number] Acct: [id number] Name: ADANJIMMY Moody Rep #: [id number] : 1995 Provider: Dr. Isabel Escobar DO Age/Sex: 30/F Location: [facility] [place] Status: Signed Intake Vital Signs 03/07/25 16:14 03/31/25 15:44 04/16/25 15:28 04/16/25 15:28 Height 5 ft 7 in 5 ft 7 in 5 ft 7 in 5 ft 7 in Weight: 187 lb 6 oz BMI 29.3 BP 119/73 Intake Visit Reasons: 36wk ob Plastic Outfitter Required: No Is patient in pain?: No Allergies Penicillins Allergy (Intermediate, Verified 04/16/25 15:27) Rash amoxicillin (From Augmentin) Adverse Reaction (Intermediate, Verified 04/16/25 15:27) Rash clavulanic acid (From Augmentin) Adverse Reaction (Intermediate, Verified 04/16/25 15:27) Rash sulfamethoxazole (From Bactrim) Adverse Reaction (Intermediate, Verified 04/16/25 15:27) Rash terbinafine (From Lamisil) Adverse Reaction (Intermediate, Verified 04/16/25 15:27) Rash trimethoprim (From Bactrim) Adverse Reaction (Intermediate, Verified 04/16/25 15:27) Rash Medications ?Medication ?Instructions ?Recorded ?Confirmed ?Type mv-mn 110-FA 180 mcg-om3 35 mg-dha 1 tab PO DAILY Chec k with primary 06/01/22 04/16/25 History 25 mg-epa 5 mg-fish oil chew tablet doctor ondansetron HCl 4 mg tablet 4 mg PO Q6-8H PRN nausea a nd 10/04/24 04/16/25 Rx vomiting #30 tabs Last Menstrual Period: 08/03/24 Zika: Zika virus screening: Negative : No PFSH PFSH Medical History GBS (group B 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), +RV culture, currently Surgical History Hx of tonsillectomy Family History Father Heart disease Social History adopted: No household members: spouse and children housing: house number of children: 1 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 Date Name GA/Weeks Outcome Route Bth Weight Gen Labor Lgth Anesthesia Del Locatn Provider FOB 01/23/23 Cm 41 live - full term 9#1oz Male epid ural [facility] Payal Willard HPI 36wk ob Details: JIMMY ATWOOD is a 30 year old who presents for routine OB visit. OB Visit PARAG Calculator Estimated Delivery Date Method Current WG Current Estimate 05/14/25 Ultrasound #1 36w 0d Other Estimates 05/10/25 LMP (Certain) 36w 4d Expected Delivery Route/Plan Labor Preferences- CB/BF [...] Declines NIPT. would like some appts [place] [facility]. 11/01/24 -?-?-?-?-?-?-?-?-?-?-?-?- 12w 2d 150 lb 8 oz (-1 lb 8 oz) 114/75 Negative -?-?-?-?-?-?-?-?-?-?--?-?- Negative 164 -?-?-?-?-?-?-?-?-?-?-?-?- JV- no complaint s [...] (+22 lb) 118/69 Negative -?-?-?-?-?-?-?-?-?-?-?-?- Negative 156 -?-?--?-?-?-?-?-?-?-?-?-?- JV- patient want s to know if fails 1 hr if can just do glucose testing. understands risks. 02/19/25 -?-?-?-?-?-?-?-?-?-?-?-?- 28w 0d 178 lb (+26 lb) 111/71 Negative -?-?-?-?-?-?-?-?-?-?-?-?- Negative 145 29 -?-?-?-?-?-?-?-?-?-?-?-?- KW- no vb/lof/ct x. good fm. Tdap today. 03/07/25 -?-?-?-?-?-?-?-?-?-?-?-?- 30w 2d 182 lb 2 oz (+30 lb 2 oz) 115/73 Negative -?-?-?-?-?-?-?-?-?-?-?-?- Negative 145 31 -?-?-?-?-?-?-?-?-?-?-?-?- Sm- no vb lof go od fm no reuglar ctx [facility] signed 03/19/25 -?-?-?-?-?-?-?-?-?-?-?-?- 32w 0d 183 lb (+31 lb) 104/67 Trace -?-?-?-?-?-?-?-?-?-?-?-?- Negative 150 33 -?-?-?-?-?-?-?-?-?-?-?-?- KW- no vb/lof/ct x. good fm. no concerns today 03/31/25 -?-?-?-?-?-?-?-?-?-?-?-?- 33w 5d 183 lb (+31 lb) 118/71 Negative -?-?-?-?-?-?-?-?-?-?-?-?- Negative 146 34 -?-?-?-?-?-?-?-?-?-?-?-?- MH-No vB, LOF. G ood FM. Denies concerns 04/16/25 -?-?-?-?-?-?-?-?-?-?-?-?- 36w 0d 187 lb 6 oz (+35 lb 6 oz) 119/73 -?-?-?-?-?-?-?-?-?-?-?-?- 156 36 Cephalic 1 -?-?-?-?-?-?-?-?-?-?-?-?- 0 -3 JV- no lof , vaginal bleeding, or dec fm. GBS today. ACOG First Trimester First Trimester: Desire [...] Signs and Symptoms of Preeclampsia, Labor Signs, Feeding No , [place] Education and Family Medical Leave or Disability Forms Coding Level of Care Code OB Routine Diagnoses Screening for lead exposure Z13.88 Thyroid nodule E04.1 Thyroid cyst E04.1 Encounter for supervision of other normal in third trimester Z34.83 Normal : other normal Trimester: third trimester 36 weeks gestation of Z3A.36 Weeks of gestation: 36 weeks Assessment and Plan Assessment and Plan (1) Screening for lead exposure: Status: Acute Comment: negative (2) Thyroid nodule: Status: Acute Comment: Patient [...] note. (3) Thyroid cyst: Status: Acute (4) Supervision of normal : Status: Acute Qualifiers: Normal : other normal Trimester: third trimester Qualified Code(s): Z34.83 - Encounter for supervision of other normal , third trimester Comment: PRR,, PARAG 05/10/25, girl PC Cm, Sudheer (5) : Status: Acute Qualifiers: Weeks of gestation: 36 weeks Qualified Code(s): Z3A.36 - 36 weeks gestation of Comment: declines NIPT & Carrier testing Orders: Orders POC Urinalysis 2 Dip (Clinic) Today Culture, Group B Streptococcus Today Z34.83 - Encounter for supervision of other normal , third trimester 04/16/25 1542 <Electronically signed by Carline Sharif DO> Date _ Carline Escobar DO Cosigner Signature: Date (if applicable) CC: ~ [facility] Work Phone: 1(128) 544-209907-30-2025 Progress [facility] [address] [place] [address], [address] [place] [address] OFFICE VISIT Date of Service: 03/19/25 MR#: [id number] Acct: [id number] Name: JIMMY ATWOOD Rep #: [id number] : 1995 Provider: QUITA Goldman Age/Sex: 29/F Location: [facility] [place] Status: Signed Intake Vital Signs 01/29/25 15:15 [...] 1 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 Date Name GA/Weeks Outcome Route Bth Weight Gen Labor Lgth Anesthesia Del Locatn Provider FOB 01/23/23 Cm 41 live - full term 9#1oz Male epid ural [facility] Payal Hutchins [place] HPI 32 wk ob Details: JIMMY ATWOOD [...] current plan of care details and appropriate ordersplaced. Relevant counseling for the gestational age provided. [...] Declines NIPT. would like some appts in [facility]. 11/01/24 -?-?-?-?-?-?-?-?-?-?-?-?- 12w 2d 150 lb 8 [...] of Care, Toxoplasmosis Precations, Use of Any med ications, Sexual activity, Exercise, Dental Care, Sauna/Hot tub [...] Signs and Symptoms of Preeclampsia, Labor Signs, InfantFeeding No , [place] Education and Family Medical Leave or Disability [...] of the TI-RADS grading system. It should benoted that patient's thyroid nodule was rated a [...] the procedure was undertaken in uncomplicated fashion du ring today's visit. Complete details are given in [...] information and see below for orders placed atthis visit. GA appropriate handout given. 03/19/25 1254 s QUITA> Date _ Manjula Goldman CNM [facility] Signature: Date (if applicable) CC: ~ [facility] [id number] Progress [facility] Women[facility] [address], [place] [address] OFFICE VISIT Date of Service: 02/19/25 MR#: [id number] Acct: [id number] Name: JIMMY ATWOOD Rep #: [id number] : 1995 Provider: QUITA Goldman Age/Sex: 29/F Location: [facility] [place] Status: Signed with Addenda ADDENDUM by Tessa Hearn on 02/19/25 at 1154 Office Procedure Documentation entered by Tessa Hearn 02/19/25 11:54: Immunizations Boostrix Tdap 2.5 Lf unit-8 mcg-5 Lf/0.5 mL intramuscular syringe Performing Provider: Manjula Goldman CNM Performing Location: [facility] Administered by: Tessa Hearn on 02/19/25 11:52 Dose Route Admin Location Dispensed Lot Number Expiration Date NDC Chrome Polisher 0.5 mL IM Right Deltoid 0.5 mL [id number] 10/19/26 05128-442-58 BETSY SEWELL-IDRIS VIS Given Date VIS Provided VIS Publication [...] 111/71 Intake Visit Reasons: 28 wk ob Plastic Outfitter Required: No Is patient in pain?: No [...] 1 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 Date Name GA/Weeks Outcome Route Bth Weight Infant Gen Labor Lgth Anesthesia Del Locatn Provider FOB 01/23/23 Pabon 41 live - full term 9#1oz Male epid ural [facility] Payal Willard HPI 28 wk ob Details: JIMMY ATWOOD [...] current plan of care details and appropriate ordersplaced. Relevant counseling for the gestational age provided. [...] Declines NIPT. would like some appts in [facility]. 11/01/24 -?-?-?-?-?-?-?-?-?-?-?-?- 12w 2d 150 lb 8 [...] of Care, Toxoplasmosis Precations, Use of Any med ications, Sexual activity, Exercise, Dental Care, Sauna/Hot tub [...] Signs and Symptoms of Preeclampsia, Labor Signs, InfantFeeding No , [place] Education and Family Medical Leave or Disability [...] of the TI-RADS grading system. It should benoted that patient's thyroid nodule was rated a [...] the procedure was undertaken in uncomplicated fashion du ernesto today's visit. Complete details are given in [...] information and see below for orders placed atthis visit. [place] appropriate handout given. 02/19/25 1144 s QUITA> Date _ Manjula Goldman CNM Cosigner Signature: Date (if applicable) CC: ~ [facility]06-11-2025 Evaluation note* Diagnosis Onset Date Resolution Status Admit Date acute January 29 3:01pm Supervision of normal acute January 29, 2025 3:01pm Thyroid cyst acute January 29, 2 025 3:01pm Thyroid nodule acute January 29, 2025 3:01pm Nausea and vomiting during resolved January 29, 2025 3:01pm acute February 19, 2025 11:26am Screening for lead exposure acute February 19, 2025 11:26am Supervision of normal acute February 19, 2025 1 1:26am Thyroid cyst acute February 19 11:26am Thyroid nodule acute February 19, 2025 11:26am Nausea and vomiting during resolved February 19, 2025 1 1:26am acute March 07 4:05pm Screening for lead exposure acute March 07, 2025 4:05pm Supervision of normal acute March 07, 2025 4:05pm Thyroid cyst acute March 07, 2 025 4:05pm Thyroid nodule acute March 07, 2025 4:05pm Nausea and vomiting during resolved March 07, 2025 4:05pm acute March 19 12:30pm Screening for lead exposure acute March 19, 2025 12:30pm Supervision of normal acute March 19, 2025 12:30pm Thyroid cyst acute March 19, 2 025 12:30pm Thyroid nodule acute March 19, 2025 12:30pm Nausea and vomiting during resolved March 19, 2025 12:30pm acute March 31, 2 025 3:41pm Supervision of normal acute March 31 3:41pm acute April 16, 2 025 3:24pm Screening for lead exposure acute April 16, 2025 3:24pm Supervision of normal acute April 16 3:24pm Thyroid cyst acute April 16, 2025 3:24pm Thyroid nodule acute March 3:24pm Positive GBS test acute 2024 1:48pm acute April 24, 2025 1:48pm Screening for lead exposure acute April 24, 2025 1:48pm Supervision of normal acute April 24, 2 025 1:48pm Thyroid cyst acute April 1:48pm Thyroid nodule acute April 24, 2025 1:48pm Positive GBS test acute Septemb er 2024 2:57pm acute April 2:57pm Screening for lead exposure acute April 30, 2025 2:57pm Supervision of normal acute April 30, 2025 2:57pm Thyroid cyst acute April 302024 2:57pm Thyroid nodule acute April 30, 2025 2:57pm Positive GBS test acute Septemb er 2024 3:23pm acute April 3:23pm Screening for lead exposure acute May 07, 2025 3:23pm Supervision of normal acute May 07, 2025 3:23pm Thyroid cyst acute May 072024 3:23pm Thyroid nodule acute May 07, 2025 3:23pm [facility] Work Phone: 1(277) 918-953206-11-2025 Progress [facility] [address] [place] [address], [address] [place] [address] OFFICE VISIT Date of Service: 01/29/25 MR#: [id number] Acct: [id number] Name: JIMMY ATWOOD Rep #: [id number] : 1995 Provider: Dr. 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 Date Name GA/Weeks Outcome Route Bth Weight Infant Gen Labor Lgth Anesthesia Del Locatn Provider FOB 01/23/23 Cm 41 live - full term 9#1oz Male epid ural [facility] Payal Willard HPI 26wk ob/glucose Details: JIMMY ATWOOD [...] current plan of care details and appropriate ordersplaced. Relevant counseling for the gestational age provided. [...] Declines NIPT. would like some appts in [facility]. 11/01/24 -?-?-?-?-?-?-?-?-?-?-?-?- 12w 2d 150 lb 8 [...] of Care, Toxoplasmosis Precations, Use of Any med ications, Sexual activity, Exercise, Dental Care, Sauna/Hot tub [...] Signs and Symptoms of Preeclampsia, Labor Signs, InfantFeeding No , [place] Education and Family Medical Leave or Disability [...] of the TI-RADS grading system. It should benoted that patient's thyroid nodule was rated a [...] the procedure was undertaken in uncomplicated fashion du ernesto today's visit. Complete details are given in the procedures section of today's note. (2) Thyroid cyst: Status: Acute (3) Nausea and vomiting during : Status: Acute (4) Supervision of normal : Status: Acute Comment: PRR,, PARAG 05/10/25, PC Cm, Sudheer (5) : Status: Acute Qualifiers: Weeks of gestation: 25 weeks Qualified Code(s): Z3A.25 - 25 weeks gestation of Comment: declines NIPT & Carrier testing Orders: Orders POC Urinalysis 2 Dip (Clinic) Today Lead, Blood Adult 16+yrs Today Z13.88 - Encounter for screening for disorder due to exposure to contaminants 01/29/25 1543 diana Bolden DO> Date _ Carline Escobar DO Cosigner Signature: Date (if applicable) CC: ~ [facility]06-11-2025 Progress note Author Carline Bolden [facility] Note Date/Time January 29, 2025 3:43 pm [facility] Women[facility] [address], [address] [place] [address] OFFICE VISIT Date of Service: 01/29/25 MR#: [id number] Acct: [id number] Name: JIMMY ATWOOD Rep #: [id number] : 1995 Provider: Dr. 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 Date Name GA/Weeks Outcome Route Bth Weight Infant Gen Labor Lgth Anesthesia Del Locatn Provider FOB 01/23/23 Cm 41 live - full term 9#1oz Male epid ural [facility] Payal Willard HPI 26wk ob/glucose Details: JIMMY ATWOOD [...] Declines NIPT. would like some appts in [place] [facility]. 11/01/24 -?-?-?-?-?-?-?-?-?-?-?-?- 12w 2d 150 lb 8 [...] Signs and Symptoms of Preeclampsia, Labor Signs, Feeding No , Education and Family Medical [...] : Status: Acute Comment: PRR,, PARAG 05/10/25, PC Cm, Sudheer (5) : Status: Acute Qualifiers: Weeks of gestation: 25 weeks Qualified Code(s): Z3A.25 - 25 weeks gestation of Comment: declines NIPT & Carrier testing Orders: Orders POC Urinalysis 2 Dip (Clinic) Today Lead, Blood Adult 16+yrs Today Z13.88 - Encounter for screening for disorder due to exposure to contaminants 01/29/25 1545 <Electronically signed by Carline Sharif DO> Date _ Carline Escobar DO Cosigner Signature: Date (if applicable) CC: ~ [facility] Work Phone: 1(732) 209-444605-14-2025 Evaluation note* Diagnosis Onset Date Resolution Status Admit Date acute January 01, 2025 11:22am Supervision of normal acute January 01, 2025 1 1:22am Thyroid cyst acute January 01 11:22am Thyroid nodule acute January 01, 2025 11:22am Nausea and vomiting during resolved January 01, 2025 1 1:22am acute January 29 3:01pm Supervision of normal acute January 29, 2025 3:01pm Thyroid cyst acute January 29, 2 025 3:01pm Thyroid nodule acute January 29, 2025 3:01pm Nausea and vomiting during resolved January 29, 2025 3:01pm acute February 19, 2025 11:26am Screening for lead exposure acute February 19, 2025 11:26am Supervision of normal acute February 19, 2025 1 1:26am Thyroid cyst acute February 19 11:26am Thyroid nodule acute February 19, 2025 11:26am Nausea and vomiting during resolved February 19, 2025 1 1:26am acute March 07 4:05pm Screening for lead exposure acute March 07, 2025 4:05pm Supervision of normal acute March 07, 2025 4:05pm Thyroid cyst acute March 07, 2 025 4:05pm Thyroid nodule acute March 07, 2025 4:05pm Nausea and vomiting during resolved March 07, 2025 4:05pm acute March 19 12:30pm Screening for lead exposure acute March 19, 2025 12:30pm Supervision of normal acute March 19, 2025 12:30pm Thyroid cyst acute March 19, 2 025 12:30pm Thyroid nodule acute March 19, 2025 12:30pm Nausea and vomiting during resolved March 19, 2025 12:30pm acute March 31, 2 025 3:41pm Screening for lead exposure acute March 31, 2025 3:41pm Supervision of normal acute March 31 3:41pm Thyroid cyst acute March 31, 2025 3:41pm Thyroid nodule acute March 3:41pm [facility] Work Phone: 1(229) 403-391205-14-2025 Evaluation note* Diagnosis Onset Date Resolution Status Admit Date acute January 01, 2025 11:22am Supervision of normal acute January 01, 2025 1 1:22am Thyroid cyst acute January 01 11:22am Thyroid nodule acute January 01, 2025 11:22am Nausea and vomiting during resolved January 01, 2025 1 1:22am acute January 29 3:01pm Supervision of normal acute January 29, 2025 3:01pm Thyroid cyst acute January 29, 2 025 3:01pm Thyroid nodule acute January 29, 2025 3:01pm Nausea and vomiting during resolved January 29, 2025 3:01pm acute February 19, 2025 11:26am Screening for lead exposure acute February 19, 2025 11:26am Supervision of normal acute February 19, 2025 1 1:26am Thyroid cyst acute February 19 11:26am Thyroid nodule acute February 19, 2025 11:26am Nausea and vomiting during resolved February 19, 2025 1 1:26am acute March 07 4:05pm Screening for lead exposure acute March 07, 2025 4:05pm Supervision of normal acute March 07, 2025 4:05pm Thyroid cyst acute March 07, 2 025 4:05pm Thyroid nodule acute March 07, 2025 4:05pm Nausea and vomiting during resolved March 07, 2025 4:05pm acute March 19 12:30pm Screening for lead exposure acute March 19, 2025 12:30pm Supervision of normal acute March 19, 2025 12:30pm Thyroid cyst acute March 19, 2 025 12:30pm Thyroid nodule acute March 19, 2025 12:30pm Nausea and vomiting during resolved March 19, 2025 12:30pm acute March 31, 2 025 3:41pm Supervision of normal acute March 31 3:41pm acute April 16, 2 025 3:24pm Screening for lead exposure acute April 16, 2025 3:24pm Supervision of normal acute April 16 3:24pm Thyroid cyst acute April 16, 2025 3:24pm Thyroid nodule acute March 3:24pm [facility] Work Phone: 1(178) 820-565005-14-2025 Evaluation note* Diagnosis Onset Date Resolution Status Admit Date acute January 01, 2025 11:22am Supervision of normal acute January 01, 2025 1 1:22am Thyroid cyst acute January 01 11:22am Thyroid nodule acute January 01, 2025 11:22am Nausea and vomiting during resolved January 01, 2025 1 1:22am acute January 29 3:01pm Supervision of normal acute January 29, 2025 3:01pm Thyroid cyst acute January 29, 2 025 3:01pm Thyroid nodule acute January 29, 2025 3:01pm Nausea and vomiting during resolved January 29, 2025 3:01pm acute February 19, 2025 11:26am Screening for lead exposure acute February 19, 2025 11:26am Supervision of normal acute February 19, 2025 1 1:26am Thyroid cyst acute February 19 11:26am Thyroid nodule acute February 19, 2025 11:26am Nausea and vomiting during resolved February 19, 2025 1 1:26am acute March 07 4:05pm Screening for lead exposure acute March 07, 2025 4:05pm Supervision of normal acute March 07, 2025 4:05pm Thyroid cyst acute March 07, 2 025 4:05pm Thyroid nodule acute March 07, 2025 4:05pm Nausea and vomiting during resolved March 07, 2025 4:05pm acute March 19 12:30pm Screening for lead exposure acute March 19, 2025 12:30pm Supervision of normal acute March 19, 2025 12:30pm Thyroid cyst acute March 19, 2 025 12:30pm Thyroid nodule acute March 19, 2025 12:30pm Nausea and vomiting during resolved March 19, 2025 12:30pm acute March 31, 2 025 3:41pm Supervision of normal acute March 31 3:41pm acute April 16, 2 025 3:24pm Screening for lead exposure acute April 16, 2025 3:24pm Supervision of normal acute April 16 3:24pm Thyroid cyst acute April 16, 2025 3:24pm Thyroid nodule acute March 3:24pm Positive GBS test acute 2024 1:48pm acute April 24, 2025 1:48pm Screening for lead exposure acute April 24, 2025 1:48pm Supervision of normal acute April 24, 2 025 1:48pm Thyroid cyst acute April 1:48pm Thyroid nodule acute April 24, 2025 1:48pm [facility] Work Phone: 1([phone]) 668-237905-14-2025 Evaluation note* Diagnosis Onset Date Resolution Status Admit Date acute January 01, 2025 11:22am Supervision of normal acute January 01, 2025 1 1:22am Thyroid cyst acute January 01 11:22am Thyroid nodule acute January 01, 2025 11:22am Nausea and vomiting during resolved January 01, 2025 1 1:22am acute January 29 3:01pm Supervision of normal acute January 29, 2025 3:01pm Thyroid cyst acute January 29 2 025 3:01pm Thyroid nodule acute January 29, 2025 3:01pm Nausea and vomiting during resolved January 29, 2025 3:01pm acute February 19, 2025 11:26am Screening for lead exposure acute February 19, 2025 11:26am Supervision of normal acute February 19, 2025 1 1:26am Thyroid cyst acute February 19 11:26am Thyroid nodule acute February 19, 2025 11:26am Nausea and vomiting during resolved February 19, 2025 1 1:26am acute March 07 4:05pm Screening for lead exposure acute March 07, 2025 4:05pm Supervision of normal acute March 07, 2025 4:05pm Thyroid cyst acute March 07, 2 025 4:05pm Thyroid nodule acute March 07, 2025 4:05pm Nausea and vomiting during resolved March 07, 2025 4:05pm acute March 19 12:30pm Screening for lead exposure acute March 19, 2025 12:30pm Supervision of normal acute March 19, 2025 12:30pm Thyroid cyst acute March 19, 2 025 12:30pm Thyroid nodule acute March 19, 2025 12:30pm Nausea and vomiting during resolved March 19, 2025 12:30pm acute March 31, 2 025 3:41pm Supervision of normal acute March 31 3:41pm acute April 16, 2 025 3:24pm Screening for lead exposure acute April 16, 2025 3:24pm Supervision of normal acute April 16 3:24pm Thyroid cyst acute April 16, 2025 3:24pm Thyroid nodule acute March 3:24pm Positive GBS test acute Septemb er 2024 1:48pm acute April 24, 2025 1:48pm Screening for lead exposure acute April 24, 2025 1:48pm Supervision of normal acute April 24, 2 025 1:48pm Thyroid cyst acute April 1:48pm Thyroid nodule acute April 24, 2025 1:48pm Positive GBS test acute Septemb er 2024 2:57pm acute April 2:57pm Screening for lead exposure acute April 30, 2025 2:57pm Supervision of normal acute April 30, 2025 2:57pm Thyroid cyst acute April 302024 2:57pm Thyroid nodule acute April 30, 2025 2:57pm [facility] Work Phone: 1(348) 376-963004-08-2025 Evaluation note* Diagnosis Onset Date Resolution Status [...] Thyroid nodule acute March 07, 2025 4:05pm [facility] Work Phone: 1(135) 902-421504-08-2025 Evaluation note* Diagnosis Onset Date Resolution Status [...] Thyroid nodule acute March 19, 2025 12:30pm [facility] Work Phone: 1(877) 151-801703-14-2025 Evaluation note* Diagnosis Onset Date Resolution Status [...] Thyroid nodule acute January 29, 2025 3:01pm [facility] Work Phone: 1(348) 881-676903-14-2025 Evaluation note* Diagnosis Onset Date Resolution Status [...] Thyroid nodule acute February 19, 2025 11:26am [facility] Work Phone: 1(732) 527-825802-14-2025 Evaluation note* Diagnosis Onset Date Resolution Status [...] Thyroid nodule acute January 01, 2025 11:22am [facility] Work Phone: [phone]) [phone] Evaluation note* Diagnosis Onset Date Resolution Status Admit Date acute October 04, 2024 2:27pm Supervision of normal acute October 04, 025 2:27pm Nausea and vomiting during acute [...] Thyroid nodule acute January 29, 2025 3:01pm [facility] Work Phone: 1(327) 520-940006-07-2023 Discharge summary Author Manjula Goldman [facility] January 25, 2023 8:48am Note Date/Time January 25, 2023 8:48a m [facility] Medical Records Department [address] [place] [address] Instructions for Home/Discharge Instructions 01/25/23 0847 MR#: [id number] Acct: [id number] Name: JIMMY ATWOOD Rep #:[id number] : [...] NP Discharge Orders/Prescriptions Prescriptions: No Action PNV no.[id number]-[id number]-lwwt 180 mcg-35 mg- 25 mg-5 mg tablet,chewable 1 tab PO DAILY azithromycin [Zithromax Z-Aj] 250 mg tablet 250 mg PO DAILY 6 Days Qty: 6 0RF Rx Instructions: start on day 2 of therapy ferrous sulfate [iron] 325 mg (65 mg iron) Tablet 325 mg PO DAILY Referrals / Follow Up: Yudi Méndez NP, SENIOR PROCESS ANALYST-C [Primary Care Provider] - Disposition Disposition (needs filled in before D/C Order can be placed): Home, Self Care 01/25/23 0848<Electronically signed by Manjula Goldman CNM>Manjula Goldman CNM CC: JUAN FC Yudi Méndez ~ Signed [facility] Work Phone: 1([phone]) 437-785206-07-2023 Progress note Author Manjula Goldman [facility] January 25, 2023 8:47am Note Date/Time January 25, 2023 8:47a m [facility] Medical Records Department [address] [place] [address] Progress Note - OBGYN 01/25/23 0845 MR#: [id number] Acct: [id number] Name: JIMMY ATWOOD Rep #:[id number] : 1995 27 From: Manjula oGldman CNM PCP: MANPREET Calvin Status:ADM IN Location: [id number] Subjective Subjective Patient doing well without complaints. [...] (4) Supervision of normal first : COMMENT: [id number], PARAG 01/16/23, boy Cm Spouse Sudheer Charges/Coding Multi Select Codes Urinary/Genital Urinary/Genital CPT Codes: No Charge 01/25/23 0847 <Electronically signed by Manjula Goldman CNM> Cosigner Signature (if applicable): CC: ~ Signed [facility] Work Phone: 1(929) 445-987306-06-2023 Progress note Author Manjula Goldman [facility] January 24, 2023 12:24pm Note Date/Time January 24, 2023 12:24 pm [facility] Medical Records Department [address] [place] [address] Progress Note - OBGYN 01/24/23 1222 MR#: [id number] Acct: [id number] Name: JIMMY ATWOOD Rep #:[id number] : 1995 27 From: Manjula Goldman CNM PCP: MANPREET Calvin Status:ADM IN Location: FD576-4 Subjective Subjective Patient doing well without complaints. [...] Cosigner Signature (if applicable): CC: ~ Signed [facility] Work Phone: 1([phone]) 113-783206-06-2023 Discharge summary Author Payal Hutchins [facility] January 23, 2023 10:20pm Note Date/Time January 23, 2023 10:20 pm [facility] Medical Records Department [address] [place] [address] Instructions for Home/Discharge Instructions 01/23/232219 MR#: [id number] Acct: [id number] Name: JIMMY ATWOOD Rep #:[id number] : [...] NP Discharge Orders/Prescriptions Prescriptions: No Action PNV no.249-RE-dl7-[id number]-ezp-ulzx 180 mcg-35 mg- 25 mg-5 mg tablet,chewable 1 tab PO DAILY azithromycin [Zithromax Z-Aj] 250 mg tablet 250 mg PO DAILY 6 Days Qty: 6 0RF Rx Instructions: start on day 2 of therapy ferrous sulfate [iron] 325 mg (65 mg iron) Tablet 325 mg PO DAILY Referrals / Follow Up: Yudi Méndez NP, SENIOR PROCESS ANALYST-C [Primary Care Provider] - Disposition Disposition (needs filled in before D/C Order can be placed): Home, Self Care 01/23/232219<Electronically signed by Payal Hutchins CNM>Payal Hutchins CNM CC: KRISTEN-C Yudi Méndez ~ Signed [facility] Work Phone: 1([phone]) [phone] Procedure [facility] 01-23-2023 History and physical note Author Payal Hutchins [facility] January 23, 2023 8:20am Note Date/Time January 23, 2023 8:20a m [facility] Medical Records Department [address] [place] [address] H&P Exam - PRODUCT SUPPORT REPRESENTATIVE 01/23/23812 MR#: [id number] Acct: [id number] Name: JIMMY ATWOOD Rep #:[id number] : 1995 27 From: Payal Hutchins CNM PCP: MANPREET Calvin Status:ADM IN Location: [id number] HPI - General General Date of Admission: 01/23/23 HPI Narrative JIMMY ATWOOD, is a 27 F who presents at 41 weeks for IOL for postdates. course complicated by abnormal glucose screening with inability to tolerate 3 hour, tested glucose x2 weeks with normal glucose and fasting sugars again during 38 weeks with normal fastings. growth scan at 36 weeks qnuagohbrkjw34% EFW. 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 Jatin Godfrey. Has MFM US today 10/03/22 -?-?-?-?-?-?-?-?-?-?-?-?- 25w 0d 172 lb 6 oz 124/80 Nega tive -?-?-?-?-?-?-?-?-?-?-?-?- Negative 145 -?-?-?-?-?-?-?-?-?-?-?-?- SM- no vb lof go od fm n oreular ctx 10/27/22 -?-?-?-?-?-?-?-?-?-?-?-?- 28w 3d 173 lb 4 oz 102/70 Nega tive -?-?-?-?-?-?-?-?-?-?-?-?- Negative 148 29 -?-?-?-?-?-?-?-?-?-?-?-?- -No Vb, LOF. G ood FM. Needs 3 hr GTT, add FE daily. Larc, tdap 11/09/22 -?-?-?-?-?-?-?-?-?-?-?-?- 30w 2d 177 lb 4 oz 117/77 Nega tive -?-?-?-?-?-?-?-?-?-?-?-?- Negative 140 32 -?-?-?-?-?-?-?-?-?-?-?-?- KW +FM. No lof/v b/ctx. FMLA papers given to emergency medical technician. Blood sugars reviewed and discussed with JV. [...] Negative 131 35 Cephalic 1 -?-?-?-?-?-?-?-?-?-?-?-?- 70 -2 JV- growth scan today. gbs collected. no complaints. 12/28/22 -?-?-?-?-?-?-?-?-?-?-?-?- 37w 2d 190 lb 126/82 Negative -?-?-?-?-?-?-?-?-?-?-?-?- Negative 130 38 Cephalic 1 .5 -?-?-?-?-?-?-?-?-?-?-?-?- 70 -2 KW- +FM, n o vb/lof/ctx. Growth scan at 87%. GBs pos KW- +FM, no vb/lof/ctx. Grow th scan at 87%. GBs pos. labor precautions 01/03/23 -?-?-?-?-?-?-?-?-?-?-?-?- 38w 1d 191 lb 6 oz 131/83 Nega tive -?-?-?-?-?-?-?-?-?-?-?-?- Negative 145 38 Cephalic 1 .5 -?-?-?-?-?-?-?-?-?-?-?-?- 70 -2 SM- reivew ed BS readings taken a few weeks ago, discussed checking them again this week due to higher EFW. 01/09/23 -?-?-?-?-?-?-?-?-?-?-?-?- 39w 0d 194 lb 4 oz 123/83 Nega tive -?-?-?-?-?-?-?-?-?-?-?-?- Negative 140 40 Cephalic 1 .5 -?--?-?-?-?-?-?-?-?-?-?-?- 70 -2 SM- no vb lof good fm no [...] (4) Supervision of normal first : COMMENT: [id number], PARAG 01/16/23, boy [place] Spouse Sudheer (5) [...] for postdates IOL, available for consultation/collaboration. 01/23/23 0820 <Electronically signed by Payal Hutchins CNM> Cosigner Signature (if applicable): CC: QUITA Hutchins; SENIOR PROCESS ANALYSTCarson Méndez~ Signed [facility] Work Phone: 1(161) 787-668710-19-2022 NotePap Smear Specimen AdequacyOctober 2021 11:08amComment.Satisfactory for evaluation. Endocervical and/or squamous metaplasticcells (endocervical component)are present.[employer] INTERFACED A#[id number]. [facility] Of [facility] Work Phone: Comment on above:Satisfactory for evaluation. Endocervical and/or squamous metaplasticcells (endocervical component)are present.06-08-2022 NotePap Smear Specimen AdequacyOctober 2021 10:08am Comment.Satisfactory for evaluation. Endocervical and/or squamous metaplasticcells (endocervical component)are present.[employer] INTERFACED A#[id number]. John Of God Hospital Work Phone: Commnxc on above:Satisfactory for evaluation. Endocervical and/or squamous metaplasticcells (endocervical component)are present.Evaluation note* Diagnosis Onset Date Resolution Status Acute pharyngitis acute Contact with or suspected ex posure to other viral communicable disease acute acute Supervision of normal first acute [facility] Work Phone: Evaluation note* Diagnosis Onset Date Resolution Status Acute pharyngitis acute Contact with or suspected ex posure to other viral communicable disease acute acute Supervision of normal first acute Hyperbilirubinemia acute acute Supervision of normal first acute [facility] Work Phone: Evaluation note* Diagnosis Onset Date Resolution Status acute Supervision of normal first acute Hyperbilirubinemia resolved acute Supervision of normal first acute acute Supervision of normal first acute Abnormal glucose affecting acute Anemia during acut e acute Supervision of normal first acute [facility] Work Phone: evaluation note* Diagnosis Onset Date Resolution Status acute [...] e acute Supervision of normal first acute [facility] Work Phone: evaluation note* Diagnosis Onset Date Resolution Status acute [...] e acute Supervision of normal first acute [facility] Work Phone: evaluation note* Diagnosis Onset Date Resolution Status acute [...] normal first acute (spontaneous vaginal delivery) acute [facility] Work Phone: Evaluation note* Diagnosis Onset Date Resolution Status care and examination noneactive [facility] Work Phone: Hospital Discharge instructionsAdditional Instructions Use the prescription, 2 drops into your left eye 4 times a day for 5 days. If symptoms are not improving follow-up with your primary care doctor.[facility] Work Phone: Progress note Author Manjula Goldman [facility] Note Date/Time February 19, 2025 11:44 am [facility] [address], [address] [place] [address] OFFICE VISIT Date of Service: 02/19/25 MR#: [id number] Acct: [id number] Name: JIMMY ATWOOD Rep #: [id number] : 1995 Provider: QUITA Goldman Age/Sex: 29/F Location: [facility] Status: Signed with Addenda ADDENDUM by Tessa Hearn on 02/19/25 at 1154 Office Procedure Documentation entered by Tessa Hearn 02/19/25 11:54: Immunizations Boostrix Tdap 2.5 Lf unit-8 mcg-5 Lf/0.5 mL intramuscular syringe Performing Provider: Manjula Goldman CNM Performing Location: [facility] Administered by: Tessa Hearn on 02/19/25 11:52 Dose Route Admin Location Dispensed Lot Number Expiration Date NDC Chrome Polisher 0.5 mL IM Right Deltoid 0.5 mL [id number] 10/19/26 11556-329-63 [employer]SY [employer]WELL[employer]PASTEUR VIS Given Date VIS Provided VIS Publication [...] 111/71 Intake Visit Reasons: 28 wk ob Plastic Outfitter Required: No Is patient in pain?: No [...] 1 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 Date Name GA/Weeks Outcome Route Bth Weight Infant Gen Labor Lgth Anesthesia Del Locatn Provider FOB 01/23/23 Cm 41 live - full term 9#1oz Male epid ural [facility] Payal Willard HPI 28 wk ob Details: JIMMY ATWOOD [...] Declines NIPT. would like some appts in [place]. 11/01/24 -?-?-?-?-?-?-?-?-?-?-?-?- 12w 2d 150 lb 8 [...] Preeclampsia, Labor Signs, Infant Feeding No , [place] [employer] and Family Medical Leave or Disability [...] : Status: Acute Comment: PRR,, PARAG 05/10/25, PC Cm, Sudheer (6) : Status: Acute Qualifiers: Weeks [...] this visit. GA appropriate handout given. 02/19/25 5555 <Electronically signed by Manjula waters CNM> Date _ Manjula Goldman CNM Cosigner Signature: Date (if applicable) CC: ~ [facility] Work Phone: Progress note Author Manjula Goldman [facility] Note Date/Time March 19, 2025 12:5 4pm [facility] [address], [address] [place] [address] OFFICE VISIT Date of Service: 03/19/25 MR#: [id number] Acct: [id number] Name: JIMMY ATWOOD Rep #: [id number] : 1995 Provider: QUITA Goldman Age/Sex: 29/F Location: [facility] Status: Signed Intake Vital Signs 01/29/25 15:15 [...] 1 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 Date Name GA/Weeks Outcome Route Bth Weight Gen Labor Lgth Anesthesia Del Locatn Provider FOB 01/23/23 Cm 41 live - full term 9#1oz Male epid ural [facility] HPI 32 wk ob Details: JIMMY ATWOOD [...] Declines NIPT. would like some appts in [facility]. 11/01/24 -?-?-?-?-?-?-?-?-?-?-?-?- 12w 2d 150 lb 8 oz (-1 lb 8 oz) 114/75 Negative -?-?-?-?-?-?-?-?-?-?-?-?- Negative 164 -?-?-?-?-?-?-?-?-?-?-?-?- JV- no complaint s today. has a thyroid cyst that is visible and biopsy with Dr. Suazo on 11/26/24 . 11/27/24 -?-?-?-?-?-?-?-?-?-?-?-?- 16w 0d 158 lb 2 oz (+6 lb 2 oz) 101/67 Negative -?-?-?-?-?-?-?-?-?-?-?-?- Negative 150 -?-?-?-?-?-?-?-?-?-?-?-?- KW- no vb/sridhar ng. good fm. US scheduled. 01/01/25 -?-?-?-?-?-?-?-?-?-?-?-?- [...] Preeclampsia, Labor Signs, Infant Feeding No , [place] Education and Family Medical Leave or Disability [...] Urine Glucose Negative Last Edit by Tessa Dhiraj on 03/19/25 12:52 Office Urine Protein Trace Last Edit by Tessa Dhiraj on 03/19/25 12:52 Coding Level of Care [...] this visit. GA appropriate handout given. 03/19/25 1254 <Electronically signed by Manjula waters CNM> Date _ Manjula Goldman CNM Cosigner Signature: Date (if applicable) CC: ~ [facility] Work Phone: Reason for referral (narrative)No reason for referral information availableAdventist [facility] Work Phone: Summary Purpose Family History No Family History Records Found Relationship Condition Age at Onset Recorded Date/T arianna father Cardiac disease Unknown Advance Directives No Advanced Directives Records Found Advance Directive Response Recorded Date/ Time Living Will No January 23, 2023 7 :45am Power of Chauffeur No January 23, 2023 7:45am Advance Directive Response Recorded Date/ Time Living Will No January 23, 2023 6 :45am Power of Chauffeur No January 23, 2023 6:45am Advance Directive Response Recorded Date/ Time Do you have a Healthcare Power of Chauffeur? No March 23, 2025 1:16pm Chief Complaint and Reason for Visit Chief Complaint SORE THROAT/COUGH NOB LMP 8 Reason for Visit Acute pharyngitis Contact with or suspected exposure to other viral communicable disease Supervision of normal first Chief Complaint SORE THROAT/COUGH NOB LMP 04/09 12wk ob EORDER Reason for Visit Acute [...] 2024 2:27pm Nausea and vomiting during Mar ch 2024 [...] 2024 2:27pm Nausea and vomiting during Mar ch 2024 [...] Admit Date Nausea and vomiting during Mar 2024 2:18pm [...] 2025 11:22 am Nausea and vomiting during Jan 3:01pm January 29, 2025 3:01 pm Supervision [...] Admit Date Nausea and vomiting during Mar 2024 2:18pm November 01, 2024 2:1 8pm Supervision of normal November 012024 2:18pm Thyroid cyst November 01, 2024 2:1 8pm Thyroid nodule November 26, 2024 2:01 pm Nausea and vomiting during Nov 12:26pm November 27, 2024 12:2 6pm Supervision of normal November 12:26pm Thyroid cyst November 27, 2024 12:2 6pm Thyroid nodule November 27, 2024 12:2 6pm Nausea and vomiting during January 01, 2025 11:22am January 01, 2025 11:22 am Supervision of normal December 11:22am Thyroid cyst January 01, 2025 11:22 am Thyroid nodule January 01, 2025 11:22 am Nausea and vomiting during Jan 3:01pm January 29, 2025 3:01 pm Supervision [...] pm Screening for lead exposure March 07, 4:05pm Supervision of normal February 4:05pm Thyroid [...] 2025 11:22 am Nausea and vomiting during Jan 3:01pm January 29, 2025 3:01 pm Supervision [...] pm Screening for lead exposure March 07, 4:05pm Supervision of normal February 4:05pm Thyroid cyst March 07, 2025 4:05 pm Thyroid nodule March 07, 2025 4:05 pm Nausea and vomiting during Feb 12:30pm March 19, 2025 12:3 0pm Screening for lead exposure March 19, 2 025 12:30pm Supervision of normal February 12:30pm Thyroid cyst March 19, 2025 12:3 0pm Thyroid nodule March 19, 2025 12:3 0pm Chief Complaint Admit Date THYROID NODULE November [...] wk ob March 19, 2025 12:3 0pm eye March 23, 2025 12: 58pm Chief Complaint Admit Date 21 WEEK OB January 01, 2025 11:22 am 25wk ob/glucose January 29, 2025 3:01 pm 28 wk ob February 19, 2025 11:26 am 30 wk ob March 07, 2025 4:05 pm 32 wk ob March 19, 2025 12:3 0pm eye March 23, 2025 12: 58pm 34wk ob March 31, 2025 3: 41pm Reason for Visit Admit Date January 01, 2025 11:22 am Supervision of normal December 11:22am Thyroid cyst January 01, 2025 11:22 am Thyroid nodule January 01, 2025 11:22 am Nausea and vomiting during January 01, 2025 11:22am January 29, 2025 3:01 pm Supervision of normal January 3:01pm Thyroid cyst January 29, 2025 3:01 pm Thyroid nodule January 29, 2025 3:01 pm Nausea and vomiting during Andre e 2024 3:01pm February 19, 2025 11:26 am Screening for lead exposure February 19 11:26am Supervision of normal February 11:26am Thyroid cyst February 19, 2025 11:26 am Thyroid nodule February 19, 2025 11:26 am Nausea and vomiting during Feb 11:26am March 07, 2025 4:05 pm Screening for lead exposure March 07 025 4:05pm Supervision of normal February 4:05pm Thyroid cyst March 07, 2025 4:05 pm Thyroid nodule March 07, 2025 4:05 pm Nausea and vomiting during Sandeep y 2024 4:05pm March 19, 2025 12:3 0pm Screening for lead exposure March 19 12:30pm Supervision of normal February 12:30pm Thyroid cyst March 19, 2025 12:3 0pm Thyroid nodule March 19, 2025 12:3 0pm Nausea and vomiting during Feb y 2024 12:30pm March 31, 2025 3: 41pm Screening for lead exposure March 31, 2025 3:41pm Supervision of normal March 212024 3:41pm Thyroid cyst March 31, 2025 3: 41pm Thyroid nodule March 31, 2025 3: 41pm Chief Complaint Admit Date 21 WEEK OB January 01, 2025 11:22 am 25wk ob/glucose January 29, 2025 3:01 pm 28 wk ob February 19, 2025 11:26 am 30 wk ob March 07, 2025 4:05 pm 32 wk ob March 19, 2025 12:3 0pm eye March 23, 2025 12: 58pm 34wk ob March 31, 2025 3: 41pm 36wk ob April 16, 2025 3: 24pm Reason for Visit Admit Date January 01, 2025 11:22 am Supervision of normal December 11:22am Thyroid cyst January 01, 2025 11:22 am Thyroid nodule January 01, 2025 11:22 am Nausea and vomiting during January 01, 2025 11:22am January 29, 2025 3:01 pm Supervision of normal January 3:01pm Thyroid cyst January 29, 2025 3:01 pm Thyroid nodule January 29, 2025 3:01 pm Nausea and vomiting during Andre e 2024 3:01pm February 19, 2025 11:26 am Screening for lead exposure February 19 11:26am Supervision of normal February 11:26am Thyroid cyst February 19, 2025 11:26 am Thyroid nodule February 19, 2025 11:26 am Nausea and vomiting during Feb 11:26am March 07, 2025 4:05 pm Screening for lead exposure March 07, 025 4:05pm Supervision of normal February 4:05pm Thyroid cyst March 07, 2025 4:05 pm Thyroid nodule March 07, 2025 4:05 pm Nausea and vomiting during Sandeep 2024 4:05pm March 19, 2025 12:3 0pm Screening for lead exposure March 19 025 12:30pm Supervision of normal February 12:30pm Thyroid cyst March 19, 2025 12:3 0pm Thyroid nodule March 19, 2025 12:3 0pm Nausea and vomiting during Feb 12:30pm March 31, 2025 3: 41pm Supervision of normal March 212024 3:41pm April 16, 2025 3: 24pm Screening for lead exposure April 16, 2025 3:24pm Supervision of normal March 222024 3:24pm Thyroid cyst April 16, 2025 3: 24pm Thyroid nodule April 16, 2025 3: 24pm Chief Complaint Admit Date 21 WEEK OB January 01, 2025 11:22 am 25wk ob/glucose January 29, 2025 3:01 pm 28 wk ob February 19, 2025 11:26 am 30 wk ob March 07, 2025 4:05 pm 32 wk ob March 19, 2025 12:3 0pm eye March 23, 2025 12: 58pm 34wk ob March 31, 2025 3: 41pm 36wk ob April 16, 2025 3: 24pm 37wk ob April 24, 2025 1:48pm Reason for Visit Admit Date January 01, 2025 11:22 am Supervision of normal December 11:22am Thyroid cyst January 01, 2025 11:22 am Thyroid nodule January 01, 2025 11:22 am Nausea and vomiting during January 01, 2025 11:22am January 29, 2025 3:01 pm Supervision of normal January 3:01pm Thyroid cyst January 29, 2025 3:01 pm Thyroid nodule January 29, 2025 3:01 pm Nausea and vomiting during Andre e 2024 3:01pm February 19, 2025 11:26 am Screening for lead exposure February 19 11:26am Supervision of normal February 11:26am Thyroid cyst February 19, 2025 11:26 am Thyroid nodule February 19, 2025 11:26 am Nausea and vomiting during Sandeep 2024 11:26am March 07, 2025 4:05 pm Screening for lead exposure March 07 4:05pm Supervision of normal February 4:05pm Thyroid cyst March 07, 2025 4:05 pm Thyroid nodule March 07, 2025 4:05 pm Nausea and vomiting during Sandeep 2024 4:05pm March 19, 2025 12:3 0pm Screening for lead exposure March 19 025 12:30pm Supervision of normal February 12:30pm Thyroid cyst March 19, 2025 12:3 0pm Thyroid nodule March 19, 2025 12:3 0pm Nausea and vomiting during Sandeep 2024 12:30pm March 31, 2025 3: 41pm Supervision of normal March 212024 3:41pm April 16, 2025 3: 24pm Screening for lead exposure April 16, 2025 3:24pm Supervision of normal March 222024 3:24pm Thyroid cyst April 16, 2025 3: 24pm Thyroid nodule April 16, 2025 3: 24pm Positive GBS test April 24, 2025 1:48pm April 24, 2025 1:48pm Screening for lead exposure April 1:48pm Supervision of normal Septembe r 2024 1:48pm Thyroid cyst April 24, 2025 1:48pm Thyroid nodule April 24, 2025 1:48pm Chief Complaint Admit Date 21 WEEK OB January 01, 2025 11:22 am 25wk ob/glucose January 29, 2025 3:01 pm 28 wk ob February 19, 2025 11:26 am 30 wk ob March 07, 2025 4:05 pm 32 wk ob March 19, 2025 12:3 0pm eye March 23, 2025 12: 58pm 34wk ob March 31, 2025 3: 41pm 36wk ob April 16, 2025 3: 24pm 37wk ob April 24, 2025 1:48pm 38wk ob April 30, 2025 2:57pm Reason for Visit Admit Date January 01, 2025 11:22 am Supervision of normal December 11:22am Thyroid cyst January 01, 2025 11:22 am Thyroid nodule January 01, 2025 11:22 am Nausea and vomiting during January 01, 2025 11:22am January 29, 2025 3:01 pm Supervision of normal January 3:01pm Thyroid cyst January 29, 2025 3:01 pm Thyroid nodule January 29, 2025 3:01 pm Nausea and vomiting during Andre 2024 3:01pm February 19, 2025 11:26 am Screening for lead exposure February 19 11:26am Supervision of normal February 11:26am Thyroid cyst February 19, 2025 11:26 am Thyroid nodule February 19, 2025 11:26 am Nausea and vomiting during Feb 11:26am March 07, 2025 4:05 pm Screening for lead exposure March 07 4:05pm Supervision of normal February 4:05pm Thyroid cyst March 07, 2025 4:05 pm Thyroid nodule March 07, 2025 4:05 pm Nausea and vomiting during Feb 4:05pm March 19, 2025 12:3 0pm Screening for lead exposure March 19 12:30pm Supervision of normal February 12:30pm Thyroid cyst March 19, 2025 12:3 0pm Thyroid nodule March 19, 2025 12:3 0pm Nausea and vomiting during Sandeep 2024 12:30pm March 31, 2025 3: 41pm Supervision of normal March 212024 3:41pm April 16, 2025 3: 24pm Screening for lead exposure April 16, 2025 3:24pm Supervision of normal March 222024 3:24pm Thyroid cyst April 16, 2025 3: 24pm Thyroid nodule April 16, 2025 3: 24pm Positive GBS test April 24, 2025 1:48pm April 24, 2025 1:48pm Screening for lead exposure April 1:48pm Supervision of normal Septembe 2024 1:48pm Thyroid cyst April 24, 2025 1:48pm Thyroid nodule April 24, 2025 1:48pm Positive GBS test April 30, 2025 2:57pm April 30, 2025 2:57pm Screening for lead exposure April 302024 2:57pm Supervision of normal Septembe r 2024 2:57pm Thyroid cyst April 30, 2025 2:57pm Thyroid nodule April 30, 2025 2:57pm Chief Complaint Admit Date 25wk ob/glucose January 29, 2025 3:01 pm 28 wk ob February 19, 2025 11:26 am 30 wk ob March 07, 2025 4:05 pm 32 wk ob March 19, 2025 12:3 0pm eye March 23, 2025 12: 58pm 34wk ob March 31, 2025 3: 41pm 36wk ob April 16, 2025 3: 24pm 37wk ob April 24, 2025 1:48pm 38wk ob April 30, 2025 2:57pm 39wk ob May 07, 2025 3:23pm Reason for Visit Admit Date January 29, 2025 3:01 pm Supervision of normal January 3:01pm Thyroid cyst January 29, 2025 3:01 pm Thyroid nodule January 29, 2025 3:01 pm Nausea and vomiting during Andre 2024 3:01pm February 19, 2025 11:26 am Screening for lead exposure February 19 11:26am Supervision of normal February 11:26am Thyroid cyst February 19, 2025 11:26 am Thyroid nodule February 19, 2025 11:26 am Nausea and vomiting during Feb 11:26am March 07, 2025 4:05 pm Screening for lead exposure March 07 025 4:05pm Supervision of normal February 4:05pm Thyroid cyst March 07, 2025 4:05 pm Thyroid nodule March 07, 2025 4:05 pm Nausea and vomiting during Sandeep 2024 4:05pm March 19, 2025 12:3 0pm Screening for lead exposure March 19 12:30pm Supervision of normal February 12:30pm Thyroid cyst March 19, 2025 12:3 0pm Thyroid nodule March 19, 2025 12:3 0pm Nausea and vomiting during Feb 12:30pm March 31, 2025 3: 41pm Supervision of normal March 212024 3:41pm April 16, 2025 3: 24pm Screening for lead exposure April 16, 2025 3:24pm Supervision of normal March 222024 3:24pm Thyroid cyst April 16, 2025 3: 24pm Thyroid nodule April 16, 2025 3: 24pm Positive GBS test April 24, 2025 1:48pm April 24, 2025 1:48pm Screening for lead exposure April 1:48pm Supervision of normal Septembe r 2024 1:48pm Thyroid cyst April 24, 2025 1:48pm Thyroid nodule April 24, 2025 1:48pm Positive GBS test April 30, 2025 2:57pm April 30, 2025 2:57pm Screening for lead exposure April 302024 2:57pm Supervision of normal Septembe r 2024 2:57pm Thyroid cyst April 30, 2025 2:57pm Thyroid nodule April 30, 2025 2:57pm Positive GBS test May 07, 2025 3:23pm May 07, 2025 3:23pm Screening for lead exposure May 072024 3:23pm Supervision of normal Septembe r 2024 3:23pm Thyroid cyst May 07, 2025 3:23pm Thyroid nodule May 07, 2025 3:23pm Additional Source Comments INFORMATION SOURCE (unrecogn ized section and content) DATE CREATED AUTHOR 07/06/2020 [facility] DATE CREATED AUTHOR AUTHOR'S ORGANIZ ATION 10/12/2024 Kit Sosajordyn [facility] DATE CREATED AUTHOR AUTHOR'S ORGANIZ ATION 10/14/2024 [facility] DATE CREATED AUTHOR AUTHOR'S ORGANIZ ATION 10/15/2024 [facility] DATE CREATED AUTHOR AUTHOR'S ORGANIZ ATION 12/18/2024 [facility] DATE CREATED AUTHOR AUTHOR'S ORGANIZ ATION 05/10/2025 [facility] Goals (unrecognized section and content) Type Care Experience by Labor Richelle cerrato-CB/BF classes: encouraged- in novemberlabor support person: Lanelabor intervention preferences: []pain management options preferred: epiduralcut cord/dad catch: Yesbreastfeeding: YesPP control planned: discusseddiscussed possible routes of delivery and associated risks: []special requests: [] Care Experience Labor Preferences-CB /BF classes: []labor support person: []labor intervention preferences: []pain management options preferred: []cut cord/dad catch: []: []PP control planned: []discussed possible routes of delivery and associated risks: []special requests: [] Care Teams (unrecognized sec tion and content) Team Status: Active Member Role Status Brie Méndez NP, SENIOR PROCESS ANALYST-C Primary Care Provider Active Team Status: Inactive Member Role Status Brie Méndez NP, SENIOR PROCESS ANALYST-C Primary Care Provider, Referring Provider Active Dr. Carlien Escobar DO Attending Provider Activ e Team Status: Inactive Member Role Status Brie Méndez NP, SENIOR PROCESS ANALYST-C Primary Care Provider, Referring Provider Active Tania Gutiérrez SENIOR PROCESS ANALYST, SENIOR PROCESS ANALYST-C Attending Provider Active Team Status: Inactive Member Role Status Brie Méndez NP, SENIOR PROCESS ANALYST-C Primary Care Provider, Referring Provider Active Dr. Nelly Gay MD Attending Provider Active Team Status: Inactive Member Role Status Brie Méndez NP, SENIOR PROCESS ANALYST-C Primary Care Provider Active Dr. Nelly Gay MD Attending Provider, Referr ing Provider Active Team Status: Active Member Role Status Brie Méndez NP, SENIOR PROCESS ANALYST-C Primary Care Provider Active Tania Gutiérrez NP, SENIOR PROCESS ANALYST-C Attending Provider, Referring Provider Active Team Status: Inactive Member Role Status Brie Méndez NP, SENIOR PROCESS ANALYST-C Primary Care Provider Active Tania Gutiérrez SENIOR PROCESS ANALYST, SENIOR PROCESS ANALYST-C Attending Provider, Referring Provider Active Team Status: Inactive Member Role Status Dates Yudi Méndez SENIOR PROCESS ANALYST, SENIOR PROCESS ANALYST-C Primary Care Provider, Referring Provider Active Manjula Goldman CNM Attending Provider Active Team Status: Inactive Member Role Status Dates Yudi Méndez SENIOR PROCESS ANALYST, SENIOR PROCESS ANALYST-C Primary Care Provider Active Manjula Goldman CNM Attending Provider, Referring Pro vider Active Dr. Carline Escobar DO Other Provider Active Team Status: Active Member Role Status Dates Yudi Méndez NP, SENIOR PROCESS ANALYST-C Primary Care Provider Active Dr. Nelly Gay MD Admit Provider, Other Prov ider Active Payal Hutchins CNM Attending Provider Active Team Status: Active Member Role Status Dates Yudi Méndez SENIOR PROCESS ANALYST, SENIOR PROCESS ANALYST-C Primary Care Provider Active Payal Hutchins CNM Admit Provider, Other Provider A ctive Manjula Goldman CNM Attending Provider Active Team Status: Inactive Member Role Status Dates Yudi Méndez SENIOR PROCESS ANALYST, SENIOR PROCESS ANALYST-C Primary Care Provider Active Payal Hutchins CNM Admit Provider, Attending Provid er Active Team Status: Inactive Member Role Status Dates Yudi Méndez SENIOR PROCESS ANALYST, SENIOR PROCESS ANALYST-C Primary Care Provider Active Dr. Roxann Michaels MD Attending Provider, Referring Pro vider Active Team Status: Inactive Member Role Status Dates Yudi Méndez SENIOR PROCESS ANALYST, SENIOR PROCESS ANALYST-C Primary Care Provider Active Start: October 04, 2024 End: October 04, 2024 Yudi Méndez NP, SENIOR PROCESS ANALYST-C Referring Provider Active S tart: October 04, 2024 End: October 04, 2024 Manjula Goldman CNM Attending Provider Active S tart: October 04, 2024 End: October 04, 2024 Team Status: Inactive Member Role Status Dates Yudi Méndez SENIOR PROCESS ANALYST, SENIOR PROCESS ANALYST-C Primary Care Provider Active Start: October 04, 2024 End: October 04, 2024 Manjula Goldman CNM Attending Provider Active S tart: October 04, 2024 End: October 04, 2024 Manjula Goldman CNM Referring Provider Active S tart: October 04, 2024 End: October 04, 2024 Team Status: Inactive Member Role Status Dates Yudi Méndez SENIOR PROCESS ANALYST, SENIOR PROCESS ANALYST-C Primary Care Provider Active Start: November 01, 2024 End: November 01, 2024 Yudi Méndez NP, SENIOR PROCESS ANALYST-C Referring Provider Active S tart: November 01, 2024 End: November 01, 2024 Dr. Carline Escobar DO Attending Provider Activ e Start: November 01, 2024 End: November 01, 2024 Team Status: Inactive Member Role Status Dates Yudi Méndez SENIOR PROCESS ANALYST, SENIOR PROCESS ANALYST-C Primary Care Provider Active Start: November 26, 2024 End: November 26, 2024 Yudi Méndez SENIOR PROCESS ANALYST, SENIOR PROCESS ANALYST-C Referring Provider Active S tart: November 26, 2024 End: November 26, 2024 Dr. Ravinder Suazo MD Attending Provider Active Start: November 26, 2024 End: November 26, 2024 Team Status: Inactive Member Role Status Dates Yudi Méndez SENIOR PROCESS ANALYST, SENIOR PROCESS ANALYST-C Primary Care Provider Active Start: November 26, 2024 End: November 26, 2024 Dr. Ravinder Suazo MD Attending Provider Active Start: November 26, 2024 End: November 26, 2024 Dr. Ravinder Suazo MD Referring Provider Active Start: November 26, 2024 End: November 26, 2024 Team Status: Inactive Member Role Status Dates Yudi Méndez SENIOR PROCESS ANALYST, SENIOR PROCESS ANALYST-C Primary Care Provider Active Start: November 27, 2024 End: November 27, 2024 Yudi Méndez SENIOR PROCESS ANALYST, SENIOR PROCESS ANALYST-C Referring Provider Active S tart: November 27, 2024 End: November 27, 2024 Manjula Goldman CNM Attending Provider Active S tart: November 27, 2024 End: November 27, 2024 Team Status: Inactive Member Role Status Dates Yudi Méndez SENIOR PROCESS ANALYST, SENIOR PROCESS ANALYST-C Primary Care Provider Active Start: January 01, 2025 End: January 01, 2025 Yudi Méndez SENIOR PROCESS ANALYST, SENIOR PROCESS ANALYST-C Referring Provider Active S tart: January 01, 2025 End: January 01, 2025 Manjula Goldman CNM Attending Provider Active S tart: January 01, 2025 End: January 01, 2025 Team Status: Inactive Member Role Status Dates Yudi Méndez SENIOR PROCESS ANALYST, SENIOR PROCESS ANALYST-C Primary Care Provider Active Start: January 29, 2025 End: January 29, 2025 Yudi Méndez SENIOR PROCESS ANALYST, SENIOR PROCESS ANALYST-C Referring Provider Active S tart: January 29, 2025 End: January 29, 2025 Dr. Carline Escobar DO Attending Provider Activ e Start: January 29, 2025 End: January 29, 2025 Team Status: Active Member Role Status Dates Yudi Méndez SENIOR PROCESS ANALYST, SENIOR PROCESS ANALYST-C Primary Care Provider Active Start: January 29, 2025 Dr. Nelly Gay MD Attending Provider Active Start: January 29, 2025 Dr. Nelly Gay MD Referring Provider Active Start: January 29, 2025 Team Status: Inactive Member Role Status Dates Yudi Méndez SENIOR PROCESS ANALYST, SENIOR PROCESS ANALYST-C Primary Care Provider Active Start: January 29, 2025 End: January 29, 2025 Dr. Nelly Gay MD Attending Provider Active Start: January 29, 2025 End: January 29, 2025 Dr. Nelly Gay MD Referring Provider Active Start: January 29, 2025 End: January 29, 2025 Team Status: Active Member Role/Relationship Status Dates Yudi Méndez SENIOR PROCESS ANALYST, SENIOR PROCESS ANALYST-C Primary Care Provider Active Team Status: Inactive Member Role/Relationship Status Dates Yudi Méndez SENIOR PROCESS ANALYST, SENIOR PROCESS ANALYST-C Primary Care Provider Active Start: November 01, 2024 End: November 01, 2024 Yudi Méndez SENIOR PROCESS ANALYST, SENIOR PROCESS ANALYST-C Referring Provider Active S tart: November 01, 2024 End: November 01, 2024 Dr. Carline Escobar DO Attending Provider Activ e Start: November 01, 2024 End: November 01, 2024 Team Status: Inactive Member Role/Relationship Status Dates Yudi Méndez SENIOR PROCESS ANALYST, SENIOR PROCESS ANALYST-C Primary Care Provider Active Start: November 26, 2024 End: November 26, 2024 Yudi Méndez SENIOR PROCESS ANALYST, SENIOR PROCESS ANALYST-C Referring Provider Active S tart: November 26, 2024 End: November 26, 2024 Dr. Ravinder Suazo MD Attending Provider Active Start: November 26, 2024 End: November 26, 2024 Team Status: Inactive Member Role/Relationship Status Dates Yudi Méndez SENIOR PROCESS ANALYST, SENIOR PROCESS ANALYST-C Primary Care Provider Active Start: November 26, 2024 End: November 26, 2024 Dr. Ravinder Suazo MD Attending Provider Active Start: November 26, 2024 End: November 26, 2024 Dr. Ravinder Suazo MD Referring Provider Active Start: November 26, 2024 End: November 26, 2024 Team Status: Inactive Member Role/Relationship Status Dates Yudi Méndez SENIOR PROCESS ANALYST, SENIOR PROCESS ANALYST-C Primary Care Provider Active Start: November 27, 2024 End: November 27, 2024 Yudi Méndez SENIOR PROCESS ANALYST, SENIOR PROCESS ANALYST-C Referring Provider Active S tart: November 27, 2024 End: November 27, 2024 Manjula Goldman CNM Attending Provider Active S tart: November 27, 2024 End: November 27, 2024 Team Status: Inactive Member Role/Relationship Status Dates Yudi Méndez SENIOR PROCESS ANALYST, SENIOR PROCESS ANALYST-C Primary Care Provider Active Start: January 01, 2025 End: January 01, 2025 Yudi Méndez SENIOR PROCESS ANALYST, SENIOR PROCESS ANALYST-C Referring Provider Active S tart: January 01, 2025 End: January 01, 2025 Manjula Goldman CNM Attending Provider Active S tart: January 01, 2025 End: January 01, 2025 Team Status: Inactive Member Role/Relationship Status Dates Yudi Méndez SENIOR PROCESS ANALYST, SENIOR PROCESS ANALYST-C Primary Care Provider Active Start: January 29, 2025 End: January 29, 2025 Yudi Méndez SENIOR PROCESS ANALYST, SENIOR PROCESS ANALYST-C Referring Provider Active S tart: January 29, 2025 End: January 29, 2025 Dr. Carline Escobar DO Attending Provider Activ e Start: January 29, 2025 End: January 29, 2025 Team Status: Inactive Member Role/Relationship Status Dates Yudi Méndez SENIOR PROCESS ANALYST, SENIOR PROCESS ANALYST-C Primary Care Provider Active Start: January 29, 2025 End: January 29, 2025 Dr. Nelly Gay MD Attending Provider Active Start: January 29, 2025 End: January 29, 2025 Dr. Nelly Gay MD Referring Provider Active Start: January 29, 2025 End: January 29, 2025 Team Status: Inactive Member Role/Relationship Status Dates Yudi Méndez SENIOR PROCESS ANALYST, SENIOR PROCESS ANALYST-C Primary Care Provider Active Start: February 19, 2025 End: February 19, 2025 Yudi Méndez SENIOR PROCESS ANALYST, SENIOR PROCESS ANALYST-C Referring Provider Active S tart: February 19, 2025 End: February 19, 2025 Manjula Goldman CNM Attending Provider Active S tart: February 19, 2025 End: February 19, 2025 Team Status: Inactive Member Role/Relationship Status Dates Yudi Méndez SENIOR PROCESS ANALYST, SENIOR PROCESS ANALYST-C Primary Care Provider Active Start: November 26, 2024 End: November 26, 2024 Yudi Méndez SENIOR PROCESS ANALYST, SENIOR PROCESS ANALYST-C Referring Provider Active S tart: November 26, 2024 End: November 26, 2024 Dr. Ravinder Suazo MD Attending Provider Active Start: November 26, 2024 End: November 26, 2024 Team Status: Inactive Member Role/Relationship Status Dates Yudi Méndez SENIOR PROCESS ANALYST, SENIOR PROCESS ANALYST-C Primary Care Provider Active Start: November 26, 2024 End: November 26, 2024 Dr. Ravinder Suazo MD Attending Provider Active Start: November 26, 2024 End: November 26, 2024 Dr. Ravinder Suazo MD Referring Provider Active Start: November 26, 2024 End: November 26, 2024 Team Status: Inactive Member Role/Relationship Status Dates Yudi Méndez SENIOR PROCESS ANALYST, SENIOR PROCESS ANALYST-C Primary Care Provider Active Start: November 27, 2024 End: November 27, 2024 Yudi Méndez SENIOR PROCESS ANALYST, SENIOR PROCESS ANALYST-C Referring Provider Active S tart: November 27, 2024 End: November 27, 2024 Manjula Goldman CNM Attending Provider Active S tart: November 27, 2024 End: November 27, 2024 Team Status: Inactive Member Role/Relationship Status Dates Yudi Méndez SENIOR PROCESS ANALYST, SENIOR PROCESS ANALYST-C Primary Care Provider Active Start: January 01, 2025 End: January 01, 2025 Yudi Méndez SENIOR PROCESS ANALYST, SENIOR PROCESS ANALYST-C Referring Provider Active S tart: January 01, 2025 End: January 01, 2025 Manjula Goldman CNM Attending Provider Active S tart: January 01, 2025 End: January 01, 2025 Team Status: Inactive Member Role/Relationship Status Dates Yudi Méndez SENIOR PROCESS ANALYST, SENIOR PROCESS ANALYST-C Primary Care Provider Active Start: January 29, 2025 End: January 29, 2025 Yudi Méndez SENIOR PROCESS ANALYST, SENIOR PROCESS ANALYST-C Referring Provider Active S tart: January 29, 2025 End: January 29, 2025 Dr. Carline Escobar DO Attending Provider Activ e Start: January 29, 2025 End: January 29, 2025 Team Status: Inactive Member Role/Relationship Status Dates Yudi Méndez SENIOR PROCESS ANALYST, SENIOR PROCESS ANALYST-C Primary Care Provider Active Start: January 29, 2025 End: January 29, 2025 Dr. Nelly Gay MD Attending Provider Active Start: January 29, 2025 End: January 29, 2025 Dr. Nelly Gay MD Referring Provider Active Start: January 29, 2025 End: January 29, 2025 Team Status: Inactive Member Role/Relationship Status Dates Yudi Méndez SENIOR PROCESS ANALYST, SENIOR PROCESS ANALYST-C Primary Care Provider Active Start: February 19, 2025 End: February 19, 2025 Yudi Méndez SENIOR PROCESS ANALYST, SENIOR PROCESS ANALYST-C Referring Provider Active S tart: February 19, 2025 End: February 19, 2025 Manjula Goldman CNM Attending Provider Active S tart: February 19, 2025 End: February 19, 2025 Team Status: Inactive Member Role/Relationship Status Dates Yudi Méndez SENIOR PROCESS ANALYST, SENIOR PROCESS ANALYST-C Primary Care Provider Active Start: March 07, 2025 End: March 07, 2025 Yudi Méndez SENIOR PROCESS ANALYST, SENIOR PROCESS ANALYST-C Referring Provider Active S tart: March 07, 2025 End: March 07, 2025 Dr. Nelly Gay MD Attending Provider Active Start: March 07, 2025 End: March 07, 2025 Team Status: Inactive Member Role/Relationship Status Dates Yudi Méndez SENIOR PROCESS ANALYST, SENIOR PROCESS ANALYST-C Primary Care Provider Active Start: March 19, 2025 End: March 19, 2025 Yudi Méndez SENIOR PROCESS ANALYST, SENIOR PROCESS ANALYST-C Referring Provider Active S tart: March 19, 2025 End: March 19, 2025 Manjula Goldman CNM Attending Provider Active S tart: March 19, 2025 End: March 19, 2025 Team Status: Inactive Member Role/Relationship Status Dates Yudi Méndez SENIOR PROCESS ANALYST, SENIOR PROCESS ANALYST-C Primary Care Provider Active Start: March 23, 2025 End: March 23, 2025 Dr. Lucius Combs , DO Emergency Provider Activ e Start: March 23, 2025 End: March 23, 2025 Team Status: Inactive Member Role/Relationship Status Dates Yudi Méndez SENIOR PROCESS ANALYST, SENIOR PROCESS ANALYST-C Primary Care Provider Active Start: January 01, 2025 End: January 01, 2025 Yudi Méndez SENIOR PROCESS ANALYST, SENIOR PROCESS ANALYST-C Referring Provider Active S tart: January 01, 2025 End: January 01, 2025 Manjula Goldman CNM Attending Provider Active S tart: January 01, 2025 End: January 01, 2025 Team Status: Inactive Member Role/Relationship Status Dates Yudi Méndez SENIOR PROCESS ANALYST, SENIOR PROCESS ANALYST-C Primary Care Provider Active Start: January 29, 2025 End: January 29, 2025 Yudi Méndez SENIOR PROCESS ANALYST, SENIOR PROCESS ANALYST-C Referring Provider Active S tart: January 29, 2025 End: January 29, 2025 Dr. Carline Escobar , DO Attending Provider Activ e Start: January 29, 2025 End: January 29, 2025 Team Status: Inactive Member Role/Relationship Status Dates Yudi Méndez SENIOR PROCESS ANALYST, SENIOR PROCESS ANALYST-C Primary Care Provider Active Start: January 29, 2025 End: January 29, 2025 Dr. Nelly Gay MD Attending Provider Active Start: January 29, 2025 End: January 29, 2025 Dr. Nelly Gay MD Referring Provider Active Start: January 29, 2025 End: January 29, 2025 Team Status: Inactive Member Role/Relationship Status Dates Yudi Méndez SENIOR PROCESS ANALYST, SENIOR PROCESS ANALYST-C Primary Care Provider Active Start: February 19, 2025 End: February 19, 2025 Yudi Méndez SENIOR PROCESS ANALYST, SENIOR PROCESS ANALYST-C Referring Provider Active S tart: February 19, 2025 End: February 19, 2025 Manjula Goldman CNM Attending Provider Active S tart: February 19, 2025 End: February 19, 2025 Team Status: Inactive Member Role/Relationship Status Dates Yudi Méndez SENIOR PROCESS ANALYST, SENIOR PROCESS ANALYST-C Primary Care Provider Active Start: March 07, 2025 End: March 07, 2025 Yudi Méndez SENIOR PROCESS ANALYST, SENIOR PROCESS ANALYST-C Referring Provider Active S tart: March 07, 2025 End: March 07, 2025 Dr. Nelly Gay MD Attending Provider Active Start: March 07, 2025 End: March 07, 2025 Team Status: Inactive Member Role/Relationship Status Dates Yudi Méndze SENIOR PROCESS ANALYST, SENIOR PROCESS ANALYST-C Primary Care Provider Active Start: March 19, 2025 End: March 19, 2025 Yudi Méndez SENIOR PROCESS ANALYST, SENIOR PROCESS ANALYST-C Referring Provider Active S tart: March 19, 2025 End: March 19, 2025 Manjula Goldman CNM Attending Provider Active S tart: March 19, 2025 End: March 19, 2025 Team Status: Inactive Member Role/Relationship Status Dates Yudi Méndez SENIOR PROCESS ANALYST, SENIOR PROCESS ANALYST-C Primary Care Provider Active Start: March 23, 2025 End: March 23, 2025 Dr. Lucius Combs DO Attending Provider Activ e Start: March 23, 2025 End: March 23, 2025 Dr. Lucius Combs DO Emergency Provider Activ e Start: March 23, 2025 End: March 23, 2025 Team Status: Inactive Member Role/Relationship Status Dates Yudi Méndez SENIOR PROCESS ANALYST, SENIOR PROCESS ANALYST-C Primary Care Provider Active Start: March 31, 2025 End: March 31, 2025 Yudi Méndez SENIOR PROCESS ANALYST, SENIOR PROCESS ANALYST-C Referring Provider Active S tart: March 31, 2025 End: March 31, 2025 Tania Gutiérrez SENIOR PROCESS ANALYST, SENIOR PROCESS ANALYST-C Attending Provider Active Start: March 31, 2025 End: March 31, 2025 Team Status: Inactive Member Role/Relationship Status Dates Yudi Méndez SENIOR PROCESS ANALYST, SENIOR PROCESS ANALYST-C Primary Care Provider Active Start: April 16, 2025 End: April 16, 2025 Yudi Méndez SENIOR PROCESS ANALYST, SENIOR PROCESS ANALYST-C Referring Provider Active S tart: April 16, 2025 End: April 16, 2025 Dr. Carline Escobar DO Attending Provider Activ e Start: April 16, 2025 End: April 16, 2025 Team Status: Inactive Member Role/Relationship Status Dates Yudi Méndez SENIOR PROCESS ANALYST, SENIOR PROCESS ANALYST-C Primary Care Provider Active Start: April 16, 2025 End: April 16, 2025 Dr. Carline Escobar DO Attending Provider Activ e Start: April 16, 2025 End: April 16, 2025 Dr. Carline Escobar DO Referring Provider Activ e Start: April 16, 2025 End: April 16, 2025 Team Status: Inactive Member Role/Relationship Status Dates Yudi Méndez SENIOR PROCESS ANALYST, SENIOR PROCESS ANALYST-C Primary Care Provider Active Start: April 24, 2025 End: April 24, 2025 Yudi Méndez SENIOR PROCESS ANALYST, SENIOR PROCESS ANALYST-C Referring Provider Active S tart: April 24, 2025 End: April 24, 2025 Dr. Nelly Gay MD Attending Provider Active Start: April 24, 2025 End: April 24, 2025 Team Status: Inactive Member Role/Relationship Status Dates Yudi Méndez SENIOR PROCESS ANALYST, SENIOR PROCESS ANALYST-C Primary Care Provider Active Start: April 30, 2025 End: April 30, 2025 Yudi Méndez SENIOR PROCESS ANALYST, SENIOR PROCESS ANALYST-C Referring Provider Active S tart: April 30, 2025 End: April 30, 2025 Manjula Goldman CNM Attending Provider Active S tart: April 30, 2025 End: April 30, 2025 Team Status: Active Member Role/Relationship Status Dates Yudi Méndze SENIOR PROCESS ANALYST, SENIOR PROCESS ANALYST-C Primary care physician Active Team Status: Inactive Member Role/Relationship Status Dates Yudi Méndez SENIOR PROCESS ANALYST, SENIOR PROCESS ANALYST-C Primary care physician Active Start: January 29, 2025 End: January 29, 2025 Yudi Méndez SENIOR PROCESS ANALYST, SENIOR PROCESS ANALYST-C Referring Provider Active S tart: January 29, 2025 End: January 29, 2025 Dr. Carline Escobar DO Attending physician Acti ve Start: January 29, 2025 End: January 29, 2025 Team Status: Inactive Member Role/Relationship Status Dates Yudi Méndez SENIOR PROCESS ANALYST, SENIOR PROCESS ANALYST-C Primary care physician Active Start: January 29, 2025 End: January 29, 2025 Dr. Nelly Gay MD Attending physician Active Start: January 29, 2025 End: January 29, 2025 Dr. Nelly Gay MD Referring Provider Active Start: January 29, 2025 End: January 29, 2025 Team Status: Inactive Member Role/Relationship Status Dates Yudi Méndez SENIOR PROCESS ANALYST, SENIOR PROCESS ANALYST-C Primary care physician Active Start: February 19, 2025 End: February 19, 2025 Yudi Méndez SENIOR PROCESS ANALYST, SENIOR PROCESS ANALYST-C Referring Provider Active S tart: February 19, 2025 End: February 19, 2025 Manjula Goldman CNM Attending physician Active Start: February 19, 2025 End: February 19, 2025 Team Status: Inactive Member Role/Relationship Status Dates Yudi Méndez SENIOR PROCESS ANALYST, SENIOR PROCESS ANALYST-C Primary care physician Active Start: March 07, 2025 End: March 07, 2025 Yudi Méndez SENIOR PROCESS ANALYST, SENIOR PROCESS ANALYST-C Referring Provider Active S tart: March 07, 2025 End: March 07, 2025 Dr. Nelly Gay MD Attending physician Active Start: March 07, 2025 End: March 07, 2025 Team Status: Inactive Member Role/Relationship Status Dates Yudi Méndez SENIOR PROCESS ANALYST, SENIOR PROCESS ANALYST-C Primary care physician Active Start: March 19, 2025 End: March 19, 2025 Yudi Méndez SENIOR PROCESS ANALYST, SENIOR PROCESS ANALYST-C Referring Provider Active S tart: March 19, 2025 End: March 19, 2025 Manjula Goldman CNM Attending physician Active Start: March 19, 2025 End: March 19, 2025 Team Status: Inactive Member Role/Relationship Status Dates Yudi Méndez SENIOR PROCESS ANALYST, SENIOR PROCESS ANALYST-C Primary care physician Active Start: March 23, 2025 End: March 23, 2025 Dr. Lucius Combs DO Attending physician Active Start: March 23 End: March 23, 2025 Dr. Lucius Combs DO Emergency Department Physician Active Start: March 23, 2025 End: March 23, 2025 Team Status: Inactive Member Role/Relationship Status Dates Yudi Méndez SENIOR PROCESS ANALYST, SENIOR PROCESS ANALYST-C Primary care physician Active Start: March 31, 2025 End: March 31, 2025 Yudi Méndez SENIOR PROCESS ANALYST, SENIOR PROCESS ANALYST-C Referring Provider Active S tart: March 31, 2025 End: March 31, 2025 Tania Gutiérrez SENIOR PROCESS ANALYST, SENIOR PROCESS ANALYST-C Attending physician Active Start: March 31, 2025 End: March 31, 2025 Team Status: Inactive Member Role/Relationship Status Dates Yudi Méndez SENIOR PROCESS ANALYST, SENIOR PROCESS ANALYST-C Primary care physician Active Start: April 16, 2025 End: April 16, 2025 Yudi Méndez SENIOR PROCESS ANALYST, SENIOR PROCESS ANALYST-C Referring Provider Active S tart: April 16, 2025 End: April 16, 2025 Dr. Carline Escobar DO Attending physician Acti ve Start: April 16, 2025 End: April 16, 2025 Team Status: Inactive Member Role/Relationship Status Dates Yudi Méndez SENIOR PROCESS ANALYST, SENIOR PROCESS ANALYST-C Primary care physician Active Start: April 16, 2025 End: April 16, 2025 Dr. Carline Escobar DO Attending physician Acti ve Start: April 16, 2025 End: April 16, 2025 Dr. Carline Escobar DO Referring Provider Activ e Start: April 16, 2025 End: April 16, 2025 Team Status: Inactive Member Role/Relationship Status Dates Yudi Méndez SENIOR PROCESS ANALYST, SENIOR PROCESS ANALYST-C Primary care physician Active Start: April 24, 2025 End: April 24, 2025 Yudi Méndez SENIOR PROCESS ANALYST, SENIOR PROCESS ANALYST-C Referring Provider Active S tart: April 24, 2025 End: April 24, 2025 Dr. Nelly Gay MD Attending physician Active Start: April 24, 2025 End: April 24, 2025 Team Status: Inactive Member Role/Relationship Status Dates Yudi Méndez SENIOR PROCESS ANALYST, SENIOR PROCESS ANALYST-C Primary care physician Active Start: April 30, 2025 End: April 30, 2025 Yudi Méndez SENIOR PROCESS ANALYST, SENIOR PROCESS ANALYST-C Referring Provider Active S tart: April 30, 2025 End: April 30, 2025 Manjula Goldman CNM Attending physician Active Start: April 30, 2025 End: April 30, 2025 Team Status: Inactive Member Role/Relationship Status Dates uYdi Méndez SENIOR PROCESS ANALYST, SENIOR PROCESS ANALYST-C Primary care physician Active Start: May 07, 2025 End: May 07, 2025 Yudi Aris SENIOR PROCESS ANALYST, SENIOR PROCESS ANALYST-C Referring Provider Active S tart: May 07, 2025 End: May 07, 2025 Dr. Nelly Gay MD Attending physician Active Start: May 07, 2025 End: May 07, 2025 FOR RECORDS PERTAINING TO PATIENTS WHO [...] BE BASED ON THE PRIMARY CLINICAL RECORDS. [employer] provides no warranty or guarantee of the accuracy or completeness of information in this document.
--- OUTSIDE RECORDS SUMMARY | 2025-05-11 19:47 | XMS RPT_ITS | CCD ---
Author Organization [facility]iniSyn[facility] Care Team Providers Care Seafood Technology Specialist Name Role Phone BRIAN Palomares Attending Provider Aris ODD BUNDLE WORKER, ODD BUNDLE WORKER-C Yudi Primary Care Provider Aris ODD BUNDLE WORKER, ODD BUNDLE WORKER-C Yudi Referring Provider Dr. Carline Escobar Attending Provider BRIAN Palomares Attending Provider Aris ODD BUNDLE WORKER, ODD BUNDLE WORKER-C Yudi Primary Care Provider Aris ODD BUNDLE WORKER, ODD BUNDLE WORKER-C Yudi Referring Provider Dr. Carline Escobar Attending Provider QUITA Hutchins Attending Provider Aris ODD BUNDLE WORKER, ODD BUNDLE WORKER-C Yudi Primary Care Provider Aris ODD BUNDLE WORKER, ODD BUNDLE WORKER-C Yudi Referring Provider Dr. Carline Escobar Attending Provider JUAN F Gutiérrez NPC Tania Attending Provider Dr. Nelly Gay Attending Provider QUITA Goldman Attending Provider Aris ODD BUNDLE WORKER, ODD BUNDLE WORKER-C Yudi Primary Care Provider Aris ODD BUNDLE WORKER, ODD BUNDLE WORKER-C Yudi Referring Provider Dr. Carline Escobar Attending Provider Aris ODD BUNDLE WORKER, ODD BUNDLE WORKER-C Yudi Primary Care Provider Aris ODD BUNDLE WORKER, ODD BUNDLE WORKER-C Yudi Referring Provider Brock PETERSON, ODD BUNDLE WORKER-C Tania Attending Provider [phone] Dr. Nelly Gay Admit Provider [phone] Dr. Nelly Gay Other Provider [phone] Hutchins, QUITA Moe Attending Provider [phone] Cuong, QUITA Moe Admit Provider Cuong, CNEpifanio Moe Other Provider Aris ODD BUNDLE WORKER, ODD BUNDLE WORKER-C Yudi Primary Care Provider Aris ODD BUNDLE WORKER, ODD BUNDLE WORKER-C Yudi Referring Provider Dr. Nelly Gay Attending Provider [phone] ARIS, YUDI Attending Unavailable ARIS, YUDI Consulting Unavailable ARIS, YUDI Primary Care Unavailable ARIS, YUDI Admitting Unavailable PROVIDER, UNKNOWN Consulting Unavailable ARIS, YUDI K Primary Care Unavailable CARLINE MITCHELL Referring Unavailab CAIN De La Vega Attending Unavailable Aris ODD BUNDLE WORKER-C, Yudi Primary Care Provider Aris ODD BUNDLE WORKER-C, Yudi Referring Provider Manjula Goldman CNM Attending Provider [phone] Manjula Goldman CNM Referring Provider [phone] Dr. Carline Escobar DO Attending Provider Dr. Ravinder Suazo MD Attending Provider Dr. Ravinder Suazo MD Referring Provider Dr. Nelly Gay MD Attending Provider Dr. Nelly Gay MD Referring Provider Aris ODD BUNDLE WORKER-C, Yudi Primary Care Provider Aris ODD BUNDLE WORKER-C, Yudi Referring Provider Manjula Goldman CNM Attending Provider [phone] Aris ODD BUNDLE WORKER-C, Yudi Primary Care Provider Aris ODD BUNDLE WORKER-C, Yuid Referring Provider Dr. Carline Escobar DO Attending Provider Dr. Chris Combs DOel Emergency Provider Aris ODD BUNDLE WORKER-C, Yudi Primary Care Provider Aris ODD BUNDLE WORKER-C, Yudi Referring Provider Manjula Goldman CNM Attending Provider [phone] Garret WINTER, Dr. Kan Attending Provider Brock PETERSON-CTania Attending Provider [phone] Jessa Bolden DO, Dr. Crowley Referring Provider Aris ODD BUNDLE WORKER-C, Yudi Primary Care Physician Aris ODD BUNDLE WORKER-C, Yudi Referring Provider Jessa Bolden DO, Dr. Crowley Attending Physician Dr. Nelly Gay MD Attending Physician Manjula Goldman CNM Attending Physician [phone] Garret WINTER, Dr. Kan Attending Physician Garret WINTER, Dr. Kan [facility] Brock PETERSON-CTania Attending Physician [phone] Carline Escobar Attending Unavailabl e Aris ODD BUNDLE WORKER, Yudi Primary Care Unavailable Aris ODD BUNDLE WORKER, Yudi Referring Unavailable Aris ODD BUNDLE WORKER, Yudi Referring Unavailable Aris ODD BUNDLE WORKER, Yudi Primary Care Unavailable Nelly Gay Attending Unavailable Aris ODD BUNDLE WORKER, Yudi Primary Care Unavailable Aris ODD BUNDLE WORKER, Yudi Referring Unavailable Nelly Gay Attending Unavailable Aris ODD BUNDLE WORKER, Yudi Primary Care Unavailable Aris ODD BUNDLE WORKER, Yudi Referring Unavailable Manjula Goldman Attending Unavailable Aris ODD BUNDLE WORKER, Yudi Primary Care Unavailable Aris ODD BUNDLE WORKER, Yudi Referring Unavailable Manjula Goldman Attending Unavailable Aris ODD BUNDLE WORKER, Yudi Primary Care Unavailable Aris ODD BUNDLE WORKER, Yudi Referring Unavailable Carline Escobar Attending Unavailabl e Aris ODD BUNDLE WORKER, Yudi Primary Care Unavailable Aris ODD BUNDLE WORKER, Yudi Referring Unavailable Manjula Goldman Attending Unavailable Ravinder Suazo Attending Unavailable Aris ODD BUNDLE WORKER, Yudi Primary Care Unavailable Aris ODD BUNDLE WORKER, Yudi Referring Unavailable Aris ODD BUNDLE WORKER, Yudi Primary Care Unavailable Carline Escobar Referring Unavailabl e Carline Escobar Attending Unavailmargoth Méndez ODD BUNDLE WORKER, Yudi Referring Unavailable Manjula Goldman Attending Unavailable Aris ODD BUNDLE WORKER, Yudi Primary Care Unavailable Aris ODD BUNDLE WORKER, Yudi Primary Care Unavailable Aris ODD BUNDLE WORKER, Yudi Referring Unavailable Nelly Gay Attending Unavailable Carline Escobar Attending Unavailmargoth e Aris ODD BUNDLE WORKER, Yudi Referring Unavailable Aris ODD BUNDLE WORKER, Yudi Primary Care Unavailable Aris ODD BUNDLE WORKER, Yudi Referring Unavailable Manjula Goldman Attending Unavailable Aris ODD BUNDLE WORKER, Yudi Primary Care Unavailable Aris ODD BUNDLE WORKER, Yudi Primary Care Unavailable Manjula Goldman Referring Unavailable Manjula Goldman Attending Unavailable Ravinder Suazo Referring Unavailable Ravinder Suazo Attending Unavailable Aris ODD BUNDLE WORKER, Yudi Primary Care Unavailable Nelly Gay Referring Unavailable Nelly Gay Attending Unavailable Aris ODD BUNDLE WORKER, Yudi Primary Care Unavailable Lucius Combs Attending Unavailmargoth e Aris ODD BUNDLE WORKER, Yudi Primary Care Unavailable Aris ODD BUNDLE WORKER, Yudi Primary Care Unavailable Aris ODD BUNDLE WORKER, Yudi Referring Unavailable Nelly Gay Attending Unavailable Aris ODD BUNDLE WORKER, Yudi Primary Care Unavailable Aris ODD BUNDLE WORKER, Yudi Referring Unavailable Manjula Goldman Attending Unavailable Aris ODD BUNDLE WORKER, Yudi Primary Care Unavailable Aris ODD BUNDLE WORKER, Yudi Referring Unavailable Brock ODD BUNDLE WORKER, Tania Attending Unavailable Allergies Allergy Classification Reported Allergen(s) Allergy Type Date of Onset Reaction(s) Facility (20 sources) Amoxicillin Drug Allergy 06-08-20 unknown, [facility] Comment on above: Itching (20 sources) Clavulanate Drug Allergy 06-08-20 unknown, [facility] Comment on above: itch (20 sources) Sulfamethoxazole Drug Allergy 06-08-20 unknown, [facility] Comment on above: Itch (20 sources) terbinafine Drug Allergy 06-08-20 unknown, [facility] Comment on above: itch (20 sources) Trimethoprim Drug Allergy 06-08-20 unknown, [facility] Comment on above: Itch (15 sources) Penicillins Allergy to substance 01-24-20 23 Other, [facility] Comment on above: itch (1 source) Amoxicillin / Clavulanate Drug Allergy [facility] Repository (1 source) Sulfamethoxazole / Trimethoprim Drug Allergy [facility] Repository (1 source) Amoxicillin Drug Allergy 05-07-20 [facility] Repository (1 source) Clavulanate Drug Allergy 05-07-20 [facility] Repository (1 source) Penicillins Drug allergy (disorder) 05-07-20 [facility] Repository (1 source) Sulfamethoxazole Drug Allergy 05-07-20 [facility] Repository (1 source) terbinafine Drug Allergy 05-07-20 [facility] Repository (1 source) Trimethoprim Drug Allergy 05-07-20 [facility] Repository Medications Current Medications Medication Drug Class(es) Dates Sig (Normalized) Sig (Original) Mv-Mn 941-Ch-Vt1-Dha-Epa-F sherry 180 mcg-35 mg- 25 mg-5 mg tablet,chewable (12 sources) Start: 06-01-2022 Mv-Mn 628-Xa-Gb8-Dha-Epa- Fish 180 mcg-35 mg- 25 mg-5 mg tablet,chewable Active 1 {tbl} PO DAILY June 01, 2022 12:00am Check with primary doctor Complies with drug therapy Start: 06-01-2022 Mv-Mn 110-Fa-O f0-Ofg-Ree-Fish 180 mcg-35 mg- 25 mg-5 mg tablet,chewable Active 1 {tbl} PO DAILY June 01, 2022 12:00am Check with primary doctor Start: 06-01-2022 Mv-Mn 110-Fa-O l7-Ukm-Gcz-Fish 180 mcg-35 mg- 25 mg-5 mg tablet,chewable [...] 2022 1:00am August 07, 2022 1:04am Pnv No.863-Pm-St7-Dha-Epa-Fi sh (8 sources) Start: 06-01-2022 take 1 tablet by mouth once daily Pnv No.265-Ti-Sb0-Tpn-Ufe-Wure Active 1 TABLET PO DAILY May 31, 2022 11:00pm Start: 06-01-2022 take 1 tablet by nelsy th once daily Pnv No.790-Qk-Kt9-Znb-Kir-Xcmf Active 1 TABLET PO DAILY June 01, 2022 12:00am Start: 06-01-2022 Pnv No.178-Fa- Aq6-Jil-Uho-Fish Active TABLET PO May 31, 2022 11:00pm Start: 06-01-2022 Pnv No.178-Fa- Cm0-Rwl-Drj-Fish Active TABLET PO June 01, 2022 12:00am Pnv No.620-Au-Az9-Ten-Ysr-Pqby 180 mcg-35 mg- 25 mg-5 mg tablet,chewable (1 source) Start: 06-01-2022 Pnv No.308-Ww-Xi1-Nde-Iml-Lnpw 180 mcg-35 mg- 25 mg-5 mg tablet,chewable [...] for postdates. 1 .5/80/-3pitocin and saenz bulb [id number], PARAG 01/16/23 , boy Cm Spouse Sudheer PRR,, PARAG 5, PC Pabon, Sudheer IOL postdates at 42. . boy: cm. LC declines NIPT & Rutledge ier testing anatomy nl, declined afp NIPT & Carrier testing PRR,, APRAG 5, girl PC Cm, Cecily Willard Other [...] Test Name Value Interpretation Reference Range Facility Service Girl Office Visit Reporton 05-07-2025 Service Girl Office Visit Report [facility] [address] [place] [address], [address] [place] [address] OFFICE VISIT Date of Service: 05/07/25 MR#: [id number] Acct: [id number] Name: JIMMY ATWOOD Rep #: [id number] : 1995 Provider: Dr. 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 Date Name GA/Weeks Outcome Route Bth Weight [facility] Cm 41 live - full term 9#[facility] H[facility] 39wk ob Details: JIMMY ATWOOD is [...] with renato (more content not included)... Normal [facility] Laboratory - Chemistry and C hemistry - challengeOrdered By: Manjula Goldman on 04-30-2025 Glucose Ql (U) Negative [facility] Laboratory - UrinalysisOrder ed By: Manjula Goldman on 04-30-2025 Protein Ql (U) Negative [facility] Service Girl Office Visit Reporton 04-30-2025 Service Girl Office Visit Report [facility] [address] [facility], [address] [place] [address] OFFICE VISIT Date of Service: 04/30/25 MR#: [id number] Acct: [id number] Name: JIMMY ATWOOD Rep #: [id number] : 1995 Provider: QUITA Tanner ams Age/Sex: 30/F [place] [facility] Status: Signed Intake Vital Signs 03/31/25 15:44 04/24/25 13:50 04/30/25 15:00 Height 5 ft 7 in 5 ft 7 in 5 ft 7 in Weight: 189 lb BMI 29.6 BP 118/72 Intake Visit Reasons: 38wk ob Chief Complaint: 38wk OB Stamping Mill Tender Required: No Is patient in pain?: No [...] 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 Date Name GA/Weeks Outcome Route Bth Weight Gen Labor Lgth Anesthesia Del Locatn Provider FOB 01/23/23 Cm 41 live - full term 9#1oz Male epidural [facility] HPI [...] some appt (more content not included)... Normal [facility] Laboratory - Chemistry and C hemistry - challengeOrdered By: Nelly Gay on 04-24-2025 Glucose Ql (U) Negative [facility] Laboratory - UrinalysisOrder ed By: Nelly Gay on 04-24-2025 Protein Ql (U) Negative [facility] Service Girl Office Visit Reporton 04-24-2025 Service Girl Office Visit Report [facility]'s [address], [address] [place] [address] OFFICE VISIT Date of Service: 04/24/25 MR#: [id number] Acct: [id number] Name: JIMMY ATWOOD Rep #: [id number] : 1995 Provider: Dr. 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 Date Name GA/Weeks Outcome Route Bth Weight Gen Labor Lgth Anesthesia Del Locatn Provider FOB 01/23/23 Cm 41 live - full term 9#1oz Male epidural [facility] HPI 37wk ob Details: JIMMY ATWOOD is [...] dates. Dec (more content not included)... Normal [facility] Rule out Beta Strep (Grp. B) on 04-20-2025 CICI Streptococcus agalactiae (B) Amount Growth Growth Streptococcus agalactiae (B): REACTION Ampicillin Islt MACK <=0.25 cefTRIAXone Islt MACK <=0.12 S Clindamycin Islt MACK >=1 R Clindamycin.induced Susc Islt NEG Linezolid Islt MACK <=2 S Vancomycin Islt MACK 0.5 S Normal [facility] Comment on above: Performed By: #### M 100.2381 #### [facility] Laboratory [facility] [place] [place], [address] Laboratory - Chemistry and C hemistry - challengeOrdered By: Carline Bolden on 04-16-2025 Glucose Ql (U) Negative [facility] Laboratory - UrinalysisOrder ed By: Carline Kimi on 04-16-2025 Protein Ql (U) Negative [facility] Service Girl Office Visit Reporton 04-16-2025 Service Girl Office Visit Report [facility], [address] [place] [address] OFFICE VISIT Date of Service: 04/16/25 MR#: [id number] Acct: [id number] Name: JIMMY ATWOOD Rep #: [id number] : 1995 Provider: Dr. 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 Date Name GA/Weeks Outcome Route Bth Weight Gen Labor Lgth Anesthesia Del Locatn Provider FOB 01/23/23 Cm 41 live - full term 9#1oz Male epidural [facility] HPI 36wk ob Details: JIMMY ATWOOD is [...] -???-???-???-???-???-? ??-???-???-???-??? (more content not included)... Normal [facility] Screening beta-hemolytic Str eptococcus cultureOrdered By: Carline Bolden on 04-16-2025 Beta-hemolytic Streptococcus culture Streptococcus agalactiae (B) Abnormal [facility] Laboratory - Chemistry and C hemistry - challengeOrdered By: Tania Gutiérrez on 03-31-2025 Glucose Ql (U) Negative [facility] Laboratory - UrinalysisOrder ed By: Tanai Brock on 03-31-2025 Protein Ql (U) Negative [facility] Service Girl Office Visit Reporton 03-31-2025 Service Girl Office Visit Report [facility], [address] [place] [address] OFFICE VISIT Date of Service: 03/31/25 MR#: [id number] Acct: [id number] Name: JIMMY ATWOOD Rep #: [id number] : 1995 Provider: MANPREET byrd Age/Sex: 29/F [place] [facility] [place]: Signed Intake Vital Signs 03/07/25 16:14 03/23/25 12:58 03/31/25 15:44 Height 5 ft 7 in 5 ft 7 in 5 ft 7 in Weight: 183 lb BMI 28.6 BP 118/71 Intake Visit Reasons: 34wk ob Stamping Mill Tender Required: No Is patient in pain?: No [...] 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 Date Name GA/Weeks Outcome Route Bth Weight Gen Labor Lgth Anesthesia Del Locatn Provider FOB 01/23/23 Cm 41 live - full term 9#1oz Male epidural [facility] Narcisa Hutchins Sudheer HPI 34wk ob Details: [...] KW- C (more content not included)... Normal [facility] Emergency Department Summary on 03-23-2025 Emergency Department Summary [facility] Medical Records Department [address] [place] [address] Emergency Department Summary 03/23/25 MR#: [id number] Acct: [id number] Name: JIMMY ATWOOD Rep #: [id number] : 1995 29 From: Lucius Combs DO [...] in the same eye in the past. 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 Normal [facility] Laboratory - Chemistry and C hemistry - challengeOrdered By: Manjula Goldman on 03-19-2025 Glucose Ql (U) Negative [facility] Laboratory - UrinalysisOrder ed By: Manjula Goldman on 03-19-2025 Protein Ql (U) Trace [facility] Service Girl Office Visit Reporton 03-19-2025 Service Girl Office Visit Report [facility], [address] [place] [address] OFFICE VISIT Date of Service: 03/19/25 MR#: [id number] Acct: [id number] Name: JIMMY ATWOOD Rep #: [id number] : 1995 Provider: QUITA Tanner ams Age/Sex: 29/F [place] [facility] Status: Signed Intake Vital Signs [...] 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 Date Name GA/Weeks Outcome Route Bth Weight Infant Gen Labor Lgth Anesthesia Del Locatn Provider FOB 01/23/23 Cm 41 live - full term 9#1oz Male epidural [facility] latia Willard HPI 32 wk ob Details: [...] Declines NIPT. would like some appts in MD arminda. 11/01/24 (more content not included)... Normal [facility] Service Girl Office Visit Report [facility]'s [address], [address] [place] [address] OFFICE VISIT Date of Service: 03/19/25 MR#: [id number] Acct: [id number] Name: JIMMY ATWOOD Rep #: [id number] : 1995 Provider: QUITA Tanner ams Age/Sex: 29/F [place] [facility] Status: Signed Intake Vital Signs 01/29/25 15:15 03/07/25 16:14 03/19/25 12:49 03/19/25 12:51 03/19/25 12:54 Height 5 ft 7 in 5 ft 7 in 5 ft 7 in 5 ft 7 in 5 ft 7 in Weight: 183 lb BMI 28.6 BP 104/67 Intake Visit Reasons: 32 wk ob Stamping Mill Tender Required: No Is patient in pain?: No [...] 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 Date Name GA/Weeks Outcome Route Bth Weight Infant Gen Labor Lgth Anesthesia Del Locatn Provider FOB 01/23/23 Cm 41 live - full term 9#1oz Male epidural [facility] Narcisa Hutchins Sudheer HPI 32 wk ob [...] dates. Mims (more content not included)... Normal [facility] Laboratory - Chemistry and C hemistry - challengeOrdered By: Nelly Gay on 03-07-2025 Glucose Ql (U) Negative [facility] Laboratory - UrinalysisOrder ed By: Nelly Gay on 03-07-2025 Protein Ql (U) Negative [facility] Service Girl Office Visit Reporton 03-07-2025 Service Girl Office Visit Report [facility]'s [address], [address] [place] [address] OFFICE VISIT Date of Service: 03/07/25 MR#: [id number] Acct: [id number] Name: JIMMY ATWOOD Rep #: [id number] : 1995 Provider: Dr. 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 Date Name GA/Weeks Outcome Route Bth Weight Infant Gen Labor Lgth Anesthesia Del Locatn Provider FOB 01/23/23 Cm 41 live - full term 9#1oz Male epidural [facility] Narcisa Willard HPI 30 wk ob Details: [...] 171 -???-? (more content not included)... Normal [facility] Laboratory - Chemistry and C hemistry - challengeOrdered By: Manjula Goldman on 02-19-2025 Glucose Ql (U) Negative [facility] Laboratory - UrinalysisOrder ed By: Manjula Goldman on 02-19-2025 Protein Ql (U) Negative [facility] Service Girl Office Visit Reporton 02-19-2025 Service Girl Office Visit Report [address], [address] [place] [address] OFFICE VISIT Date of Service: 02/19/25 MR#: [id number] Acct: [id number] Name: JIMMY ATWOOD Rep #: [id number] : 1995 Provider: QUITA Tanner ams Age/Sex: 29/F [place] [facility] [place] Status: Signed with Addenda ADDENDUM by Tessa Hearn on 02/19/25 at 1154 Office Procedure Documentation entered by Tessa Hearn 02/19/25 11:54: Immunizations Boostrix Tdap 2.5 Lf unit-8 mcg-5 Lf/0.5 mL intramuscular syringe Performing Provider: Manjula Goldman CNM Performing Location: [facility] Administered by: Tessa Hearn on 02/19/25 11:52 Dose Route Admin Location Dispensed Lot Number Expiration Date [facility] Man ufacturer 0.5 mL IM Right Deltoid 0.5 mL [id number] 10/19/26 30576-916-99 [employer]- PASTEUR VIS Given Date VIS Provided [...] 111/71 Intake Visit Reasons: 28 wk ob Stamping Mill Tender Required: No Is patient in pain?: No [...] 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 Date Name GA/Weeks Outcome Route Bth Weight Gen Labor Lgth Anesthesia Del Locatn Provider FOB 01/23/23 Cm 41 live - full term 9#1oz Male epidural [facility] Narcisa Willard HPI 28 wk ob Details: JIMMY TAWOOD [...] Prot -? (more content not included)... Normal [facility] Lead, Blood Adult 16+yrson 0 01-31-2025 LEAD,BLD ADULT < 1.0 Normal 0.0-3.4 [facility] Comment on above: Order Comment: Test( s) 470397-Vzmo, Blood (Adult) was developed and its performance characteristics determined by [employer] [facility]. It has not been cleared or approved by the Food and Drug Administration. Result Comment: Test ing performed by Inductively coupled plasma/Mass Spectrometry. Analysis by inductively coupled plasma/mass spectrometry (ICP/MS) Environmental Exposure: WHO Recommendation <5.0 Occupational Exposure: OSHA Lead Std 40.0 JAMAR 30.0 Detection Limit = 1.0 Performed at: [address] [id number] Barber Instructor: Guzman Darnell PhD, Phone: [phone] Performed By: #### L 6345.6723 #### [facility] [address] [place], [address] Absolute lymphocyte countOrd ered By: Manjula Goldman on 01-29-2025 Lymphocytes Auto (Unsp spec) [#/Vol] 1.80 10*3/uL 0.83-4.51 [facility] Absolute neutrophil countOrd ered By: Manjula Goldman on 01-29-2025 Neutrophils (Bld) [#/Vol] 8.3 10*3/uL High 2.0-7.7 [facility] Automated lymphocyte count a s percentage of total leukocytesOrdered By: Manjula Jones on 01-29-2025 Lymphocytes/100 WBC Auto (Unsp spec) 16.1 % Low 19-41 [facility] Basophil percentageOrdered B y: Manjula Goldman on 01-29-2025 Basophils/100 WBC (Bld) 0.4 % 0-1 [facility] CBC W/Diff, Automatedon 01-19-2024 Absolute Lymph 1.80 X10 3/uL Normal 0.83-4.51 [facility] Comment on above: Performed By: #### L 3890.6006, L100.0100, L506.0400, L509.8002, L501.9520, L501.0250 #### [facility] [address] [place], [address] Absolute Neut 8.3 X10 3/uL High 2.0-7.7 [facility] Comment on above: Performed By: #### L 3890.6006, L100.0100, L506.0400, L509.8002, L501.9520, L501.0250 #### [facility] [address] [place], [address] Basophils/100 WBC (Bld) 0.4 % Normal 0-1 [facility] Comment on above: Performed By: #### L 3890.6006, L100.0100, L506.0400, L509.8002, L501.9520, L501.0250 #### [facility] [address] [place], [address] Eosinophils/100 WBC (Bld) 1.1 % Normal 0-5 [facility] Comment on above: Performed By: #### L 3890.6006, L100.0100, L506.0400, L509.8002, L501.9520, L501.0250 #### [facility] [address] [place], [address] Erythrocyte distribution width (RBC) [Ratio] 13.2 % Normal 11.6-14.6 [facility] Comment on above: Performed By: #### L 3890.6006, L100.0100, L506.0400, L509.8002, L501.9520, L501.0250 #### [facility] [address] [place], [address] Hematocrit (Bld) [Volume fraction] 31.4 % Low 37-47 [facility] Comment on above: Performed By: #### L 3890.6006, L100.0100, L506.0400, L509.8002, L501.9520, L501.0250 #### [facility] [address] [place], [address] Hemoglobin (Bld) [Mass/Vol] 10.9 g/dL Low 12.0-15.0 [facility] Comment on above: Performed By: #### L 3890.6006, L100.0100, L506.0400, L509.8002, L501.9520, L501.0250 #### [facility] [address] [place], [address] IG% 1.300 High 0.0-0.9 [facility] Comment on above: Result Comment: IG% - Immature Granulocytes (promyelocytes, myelocytes and metamyelocytes) > 1% indicates that a LEFT SHIFT is Present. Performed By: #### L 3890.6006, L100.0100, L506.0400, L509.8002, L501.9520, L501.0250 #### [facility] [address] [place], [address] Lymphocytes/100 WBC (Bld) 16.1 % Low 19-41 [facility] Comment on above: Performed By: #### L 3890.6006, L100.0100, L506.0400, L509.8002, L501.9520, L501.0250 #### [facility] [address] [place], [address] MCH (RBC) [Entitic mass] 32.9 pg High 27.0-32.0 [facility] Comment on above: Performed By: #### L 3890.6006, L100.0100, L506.0400, L509.8002, L501.9520, L501.0250 #### [facility] [address] [place], [address] MCHC (RBC) [Mass/Vol] 34.7 g/dL Normal 32-36 [facility] Comment on above: Performed By: #### L 3890.6006, L100.0100, L506.0400, L509.8002, L501.9520, L501.0250 #### [facility] [address] [place], [address] MCV (RBC) [Entitic vol] 94.9 fL Normal 81-99 [facility] Comment on above: Performed By: #### L 3890.6006, L100.0100, L506.0400, L509.8002, L501.9520, L501.0250 #### [facility] [address] [place], [address] Monocytes/100 WBC (Bld) 7.2 % Normal 0-10 [facility] Comment on above: Performed By: #### L 3890.6006, L100.0100, L506.0400, L509.8002, L501.9520, L501.0250 #### [facility] [address] [place], [address] Neutrophils/100 WBC (Bld) 73.9 % High 47-70 [facility] Comment on above: Performed By: #### L 3890.6006, L100.0100, L506.0400, L509.8002, L501.9520, L501.0250 #### [facility] [address] [place], [address] Nucleated RBC (Bld) [#/Vol] 0 10*3/uL Normal 0-5 [facility] Comment on above: Performed By: #### L 3890.6006, L100.0100, L506.0400, L509.8002, L501.9520, L501.0250 #### [facility] [address] [place], [address] Platelet mean volume (Bld) [Entitic vol] 9.7 fL Normal 6.2-12.0 [facility] Comment on above: Performed By: #### L 3890.6006, L100.0100, L506.0400, L509.8002, L501.9520, L501.0250 #### [facility] [address] [place], [address] Platelets (Bld) [#/Vol] 375 10*3/uL Normal 150-450 [facility] Comment on above: Performed By: #### L 3890.6006, L100.0100, L506.0400, L509.8002, L501.9520, L501.0250 #### [facility] [address] [place], [address] RBC (Bld) [#/Vol] 3.31 10*6/uL Low 4.2-5.4 [facility] Comment on above: Performed By: #### L 3890.6006, L100.0100, L506.0400, L509.8002, L501.9520, L501.0250 #### [facility] [address] [place], [address] RDW SD 45.6 fl High 35.1-43.9 [facility] Comment on above: Performed By: #### L 3890.6006, L100.0100, L506.0400, L509.8002, L501.9520, L501.0250 #### [facility] [address] [place], [address] WBC (Bld) [#/Vol] 11.2 10*3/uL High 4.4-11.0 [facility] Comment on above: Performed By: #### L 3890.6006, L100.0100, L506.0400, L509.8002, L501.9520, L501.0250 #### [facility] [address] [place], [address] Eosinophil percentageOrdered By: Manjula Goldman on 01-29-2025 Eosinophils/100 WBC (Bld) 1.1 % 0-5 [facility] Erythrocyte distribution wid th ratioOrdered By: Manjula Goldman on 01-29-2025 Erythrocyte distribution width (RBC) [Ratio] 13.2 % 11.6-14.6 [facility] Erythrocyte distribution wid th standard deviationOrdered By: Manjula Goldman on 01-29-2025 Erythrocyte distribution width (RBC) [Ratio] 45.6 fl High 35.1-43.9 [facility] Glucose Challenge Gest 1H 50 bronwyn 01-29-2025 GLU GEST 50g 1H 116 mg/dL Normal 70-140 [facility] Comment on above: Performed By: #### L 3890.6006, L100.0100, L506.0400, L509.8002, L501.9520, L501.0250 #### [facility] [address] [place], [address] Glucose measurement at 2 tatum rs post-dose gestational glucose tolerance testOrdered By: Manjula Goldman on 01-29-2025 Glucose [Mass/Vol] 116 mg/dL 70-140 [facility] HIVon 01-29-2025 HIV Non-Reactive Normal Nonreactive [facility] Comment on above: Result Comment: Non- Reactive Reactive Repeatedly reactive samples must be confirmed according to CDC recommended confirmatory algorithms. The subresults for either HIVAG or AHIV can be used as an aid in the selection of the confirmation algorithm for reactive samples. Send out specimens with Reactive results to [facility] for confirmation. Order the HIV antibody detection and differentiation: [id number] Performed By: #### L 3890.6006, L100.0100, L506.0400, L509.8002, L501.9520, L501.0250 ####[facility] [address] [place], [address] Hematocrit Auto (Bld) [Volum e fraction]Ordered By: Manjula Goldman on 01-29-2025 Hematocrit (Bld) [Volume fraction] 31.4 % Low 37-47 [facility] Hemoglobin measurementOrdere d By: Manjula Goldman on 01-29-2025 Hemoglobin (Bld) [Mass/Vol] 10.9 g/dL Low 12.0-15.0 [facility] Immature granulocytes/100 WB C Auto (Bld)Ordered By: Manjula Goldman on 01-29-2025 Immature granulocytes/100 WBC (Bld) 1.300 % High 0.0-0.9 [facility] Comment on above: IG% - Immature Granu locytes (promyelocytes, myelocytes and metamyelocytes) > 1% indicates that a LEFT SHIFT is Present. Laboratory - Chemistry and C hemistry - challengeOrdered By: Carline Bolden on 01-29-2025 Glucose Ql (U) Negative [facility] - UrinalysisOrder ed By: Carline Bolden on 01-29-2025 Protein Ql (U) Negative [facility] MCV (mean corpuscular volume ) determinationOrdered By: Manjula Goldman on 01-29-2025 MCV (RBC) [Entitic vol] 94.9 fL 81-99 [facility] Mean corpuscular hemoglobin (MCH) determinationOrdered By: Manjula Goldman on 01-29-2025 MCH (RBC) [Entitic mass] 32.9 pg High 27.0-32.0 [facility] Mean corpuscular hemoglobin concentration (MCHC) determinationOrdered By: Manjula Goldman on 01-29-2025 MCHC (RBC) [Mass/Vol] 34.7 g/dL 32-36 [facility] Mean platelet volume determi nationOrdered By: Manjula Goldman on 01-29-2025 Platelet mean volume (Bld) [Entitic vol] 9.7 fL 6.2-12.0 [facility] Monocyte percentageOrdered B y: Manjula Goldman on 01-29-2025 Monocytes/100 WBC (Bld) 7.2 % 0-10 [facility] Neutrophil percentageOrdered By: Manjula Goldman on 01-29-2025 Neutrophils/100 WBC (Bld) 73.9 % High 47-70 [facility] No Panel InformationOrdered By: Manjula Goldman on 01-29-2025 HIV (1&2) Antibody Non-Reactive Nonreactive [facility] Comment on above: Non-ReactiveReactive Repeatedly reactive samples must be confirmed according to CDC recommended confirmatory algorithms. The subresults for either HIVAG or AHIV can be used as an aid in the selection of the confirmation algorithm for reactive samples.Send out specimens with Reactive results to [facility] for confirmation.Order the HIV antibody detection and differentiation: #[id number] Nucleated red blood cell per centageOrdered By: Manjula Goldman on 01-29-2025 Nucleated RBC/100 WBC (Bld) [Ratio] 0 % 0-5 [facility] Service Girl Office Visit Reporton 01-29-2025 Service Girl Office Visit Report [facility] [address], [address] [place] [address] OFFICE VISIT Date of Service: 01/29/25 MR#: [id number] Acct: [id number] Name: JIMMY ATWOOD Rep #: [id number] : 1995 Provider: Dr. 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 Normal [facility] Platelet countOrdered By: Lasha Goldman on 01-29-2025 Platelets (Bld) [#/Vol] 375 10*3/uL 150-450 [facility] RBC Auto (Bld) [#/Vol]Ordere d By: Manjula Goldman on 01-29-2025 RBC (Bld) [#/Vol] 3.31 10*6/uL Low 4.2-5.4 [facility] Syphilis Antibodieson 2024 Syphilis Abs Non-Reactive Normal Nonreactive [facility] Comment on above: Performed By: #### L 3890.6006, L100.0100, L506.0400, L509.8002, L501.9520, L501.0250 ####[facility] [address] [place], [address] T4 Free Directon 01-29-2025 T4 FREE DIRECT 0.90 ng/dL Normal 0.76-1.46 [facility] Comment on above: Performed By: #### L 3890.6006, L100.0100, L506.0400, L509.8002, L501.9520, L501.0250 ####[facility] [address] [place], [place], [address] T4 freeOrdered By: Manjula mccloud on 01-29-2025 Free T4 [Mass/Vol] 0.90 ng/dL 0.76-1.46 [facility] TSH DL <= 0.005 mIU/L QnOrde red By: Manjula Goldman on 01-29-2025 TSH Qn 1.190 uIU/mL 0.300-4.200 [facility] Thyroid Stim Hormone (TSH)on 01-29-2025 TSH 1.190 uIU/mL Normal 0.300-4.200 [facility] Comment on above: Performed By: #### L 3890.6006, L100.0100, L506.0400, L509.8002, L501.9520, L501.0250 ####[facility] [address] [facility] [place], [place], [address] White blood cell (WBC) count Ordered By: Manjula Goldman on 01-29-2025 WBC (Bld) [#/Vol] 11.2 10*3/uL High 4.4-11.0 [facility] Laboratory - Chemistry and C hemistry - challengeOrdered By: Manjula Goldman on 01-01-2025 Glucose Ql (U) Negative [facility] - UrinalysisOrder ed By: Manjula Goldman on 01-01-2025 Protein Ql (U) Negative [facility] Service Girl Office Visit Reporton 01-01-2025 Service Girl Office Visit Report [facility] [address], [address] [place] [address] OFFICE VISIT Date of Service: 01/01/25 MR#: [id number] Acct: [id number] Name: ADANJIMMY GOMESIA Rep #: [id number] : 1995 Provider: QUITA Tanner ams Age/Sex: 29/F [place] [facility] Status: Signed Intake Vital Signs 11/27/24 12:32 01/01/25 11:25 01/01/25 11:30 Height 5 ft 7 in 5 ft 7 in 5 ft 7 in Weight: 167 lb 8 oz BMI 26.2 BP 113/71 Intake Visit Reasons: 21 WEEK OB Stamping Mill Tender Required: No Is patient in pain?: No [...] 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 Date Name GA/Weeks Outcome Route Bth Weight Infant Gen Labor Lgth Anesthesia Del Locatn Provider FOB 01/23/23 Pabon 41 live - full term 9#[facility]oz [facility] Sudheer HPI 21 WEEK OB [...] Declines NIPT. (more content not included)... Normal [facility] Laboratory - Chemistry and C hemistry - challengeOrdered By: Manjula Goldman on 11-27-2024 Glucose Ql (U) Negative [facility] - UrinalysisOrder ed By: Manjula Goldman on 11-27-2024 Protein Ql (U) Negative [facility] Service Girl Office Visit Reporton 11-27-2024 Service Girl Office Visit Report [facility] [address], [address] [place] [address] OFFICE VISIT Date of Service: 11/27/24 MR#: [id number] Acct: [id number] Name: JIMMY ATWOOD Rep #: [id number] : 1995 Provider: QUITA Tanner ams Age/Sex: 29/F Location: [facility] Status: Signed Intake Vital Signs 10/04/24 14:30 11/26/24 14:17 11/27/24 12:29 11/27/24 12:32 Height 5 ft 7 in 5 ft 7 in 5 ft 7 in 5 ft 7 in Weight: 158 lb 2 oz BMI 24.7 BP 101/67 Intake Visit Reasons: 16wk ob Stamping Mill Tender Required: No Is patient in pain?: No [...] 1 current occupational status: employed 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 [facility] Special Stain Group IIon Special Stain Group II ----- ---- Patient Age/Sex Location Account Attending Physician ---- JIMMY ATWOOD 29/F LABSPEC [id number] Dr. Ravinder Suazo MD ---- Specimen: [id number] Received: 11/26/24 Status: CARLOS Foley Num: [id number] Spec Type: Fluid Subm Dr: Dr. Ravinder [...] Submitted for cytology preparation. Mr 11/27/2024 CPT: 33347 Signed (signature on file) Dr. Lucinda Sutherland, 12/10/24 0852 ---- Normal [facility] Comment on above: Performed By: #### P SSII ####[facility] [address] [place], [place], [id number] Surgery Visit Reporton 11-26 Surgery Visit Report [facility] [address] [place], [place] [address] OFFICE VISIT Date of Service: 11/26/24 MR#: [id number] Acct: [id number] Name: JIMMY ATWOOD Rep #: [id number] : 1995 Provider: Dr. 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 Other symptoms include: Pertinent negatives include processing technologist of significant anxiety, palpitations, temperature dysregulation, unusual [...] cysts, or (more content not included)... Normal [facility] - Chemistry and C hemistry - challengeOrdered By: Carline Bolden on 11-01-2024 Glucose Ql (U) Negative [facility] - UrinalysisOrder ed By: Carline Bolden on 11-01-2024 Protein Ql (U) Negative [facility] Service Girl Office Visit Reporton 11-01-2024 Service Girl Office Visit Report [facility], [address] [place] [address] OFFICE VISIT Date of Service: 11/01/24 MR#: [id number] Acct: [id number] Name: JIMMY ATWOOD Rep #: [id number] : 1995 Provider: Dr. 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 Date Name GA/Weeks Outcome Route Bth Weight Infant Gen Labor Lgth Anesthesia Del Locatn Provider FOB 01/23/23 P[place] 41 live - full term 9#1oz Male epidural [facility] latia Hutchins Sudheer HPI 12 wk OB [...] -???-???-???-???-???-? ??-???-???-???-???- (more content not included)... Normal [facility] THYROID PEROXIDASE AB [CCL]o n 10-12-2024 TPO Antibody <3.0 Normal <5.6 [facility] Comment on above: Result Comment: Thyr oid Peroxidase Antibody test is used as an aid in diagnosis of autoimmune thyroid disease. [place] [address] Kahlil Lubin III, M.D. [id number] Performed By: #### 2 72396 #### [facility],[address] [place] [address] T4-FREE (FREE THYROXINE)on 0 10-11-2024 Free T4 [Mass/Vol] 1.08 ng/dL Normal 0.76 - 1.46 [facility] Comment on above: Result Comment: P otential of falsely elevated results when biotin concentrations are > 10 ng/mL. Performed By: #### 2 40407 #### [facility],[address] [place], [place] [id number] THYROID PEROXIDASE ANTIBODYo n 10-11-2024 TPO Ab Qn [IU]/mL Normal <5.6 [facility] Comment on above: Order Comment: Speci men Type: BLOOD SPECIMEN Ordering Facility: [facility] Address: [address] [place] [address] Result Comment: Thyr oid Peroxidase Antibody test is used as an aid in diagnosis of autoimmune thyroid disease. Clinical correlation is required. Performed By: #### M ICRO #### [facility] CLIA [id number] [address] [place] [address] [place] TSHon 10-11-2024 TSH Qn 0.64 m[IU]/L Normal 0.35 - 3.74 [facility] Comment on above: Performed By: #### 2 [id number] #### [facility],[address] [place], [place] [address] [place] THYROIDon 10-11-[address] [address] Patient: JIMMY ATWOOD Phone#: : 1995 Age: 29 Gender: F Pt. Type: Out Account: [id number] Location: 052 Ordering: YUDI MÉNDEZ Exam Date: 10/11/2024/13:09 Family Phys: Charge Code: 121457 Physician: [place] Order #: [id number] Dose#: PROCEDURE: THYROID ULTRASOUND COMPARISON: None. INDICATIONS: [...] Mata MD on 10/11/2024 at 16:08 Normal [facility] PAP I-G w/rfx hrHPV-Aptimaon 10-09-2024 ADEQ Comment Normal . [facility] Comment on above: Order Comment: Speci men Comment: [id number] Comment: Source.............Cervix;EndocervixSpecimen Comment: Other..............Specimen Comment: No. of containers..01 ThinPrep Vial Result Comment: Sati sfactory for evaluation. No endocervical component is identified. Performed By: #### M 100.2200, L7000.1800, L7400.0353 ####[facility] [address] [place], [place], [address] COMM . Normal . [facility] Comment on above: Order Comment: Speci men Comment: [id number] Comment: Source.............Cervix;EndocervixSpecimen Comment: Other..............Specimen Comment: No. of containers..01 ThinPrep Vial Performed By: #### M 100.2200, L7000.1800, L7400.0353 ####[facility] [address] [place], [place], [address] COMMENT Comment Normal . [facility] Comment on above: Order Comment: Specivory men Comment: [id number] Comment: Source.............Cervix;EndocervixSpecimen Comment: Other..............Specimen Comment: No. of containers..01 ThinPrep Vial Result Comment: This liquid based ThinPrep(R) pap test was screened with the use of an image guided system. Performed By: #### M 100.2200, L7000.1800, L7400.0353 ####[facility] [address] [place], [place], [id number] DIAG Comment Normal . [facility] Comment on above: Order Comment: Speci men Comment: [id number] Comment: Source.............Cervix;EndocervixSpecimen Comment: Other..............Specimen Comment: No. of containers..01 ThinPrep Vial Result Comment: NEGA TIVE FOR INTRAEPITHELIAL LESION OR MALIGNANCY. Performed By: #### M 100.2200, L7000.1800, L7400.0353 ####[facility] [address] [place], [place], [address] HPV RFLX Comment Normal . [facility] Comment on above: Order Comment: Speci men Comment: [id number] Comment: Source.............Cervix;EndocervixSpecimen Comment: Other..............Specimen Comment: No. of containers..01 ThinPrep Vial Result Comment: The HPV DNA reflex criteria were not met with this specimen result therefore, no HPV testing was performed. Performed at: [address] [id number] Barber Instructor: Chayo Yi MD, Phone: [phone] Performed By: #### M 100.2200, L7000.1800, L7400.0353 ####[facility] [address] [place], [place], [id number] PAPSMR Comment Normal . [facility] Comment on above: Order Comment: Speci men Comment: [id number] Comment: Source.............Cervix;EndocervixSpecimen Comment: Other..............Specimen Comment: No. of [...] Performed By: #### M 100.2200, L7000.1800, L7400.0353 ####[facility] [address] [place], [place], [id number] PERFORM Comment Normal . [facility] Comment on above: Order Comment: Speci men Comment: [id number] Comment: Source.............Cervix;EndocervixSpecimen Comment: Other..............Specimen Comment: No. of containers..01 ThinPrep Vial Result Comment: Tunde Braun, Renewals Specialist (ASCP) Performed By: #### M 100.2200, L7000.1800, L7400.0353 ####[facility] [address] [place], [address] HIV - WCHon 10-08-2024 HIV Non-Reactive Normal Nonreactive [facility] Comment on above: Performed By: #### L 3890.6005 ####[facility] [address] [place], [address] Chlamydia/GC JOSE J aptimaon CHLAMY,NUC ACID Negative Normal Negative [facility] Comment on above: Performed By: #### M 100.2200, L7000.1800, L7400.0353 ####[facility] [address] [place], [address] GC BY NUC ACID Negative Normal Negative [facility] Comment on above: Result Comment: Perf ormed at: =G - [facility] [address] [id number] Barber Instructor: Chayo Yi MD, Phone: [phone] Performed By: #### M 100.2200, L7000.1800, L7400.0353 ####[facility] [address] [place], [address] Urine Cultureon 10-05-2024 URC Culture exhibits no growth. Normal [facility] Comment on above: Performed By: #### M 100.2200, L7000.1800, L7400.0353 ####[facility] [address] [place], [address] Absolute lymphocyte countOrd ered By: Manjula Goldman on 10-04-2024 Lymphocytes Auto (Unsp spec) [#/Vol] 2.15 10*3/uL 0.83-4.51 [facility] Absolute neutrophil countOrd ered By: Manjula Goldman on 10-04-2024 Neutrophils (Bld) [#/Vol] 10.2 10*3/uL High 2.0-7.7 [facility] Automated lymphocyte count a s percentage of total leukocytesOrdered By: Manjula Goldman on 10-04-2024 Lymphocytes/100 WBC Auto (Unsp spec) 15.8 % Low 19-41 [facility] Basophil percentageOrdered B y: Manjula Goldman on 10-04-2024 Basophils/100 WBC (Bld) 0.4 % 0-1 [facility] CBC W/Diff, Automatedon 09-21 Absolute Lymph 2.15 X10 3/uL Normal 0.83-4.51 [facility] Comment on above: Performed By: #### L 3890.6100, L3890.6300, L100.0100, L509.8000, L509.4005, BTS ####[facility] [address] [place], [address] Absolute Neut 10.2 X10 3/uL High 2.0-7.7 [facility] Comment on above: Performed By: #### L 3890.6100, L3890.6300, L100.0100, L509.8000, L509.4005, BTS ####[facility] [address] [place], [address] Basophils/100 WBC (Bld) 0.4 % Normal 0-1 [facility] Comment on above: Performed By: #### L 3890.6100, L3890.6300, L100.0100, L509.8000, L509.4005, BTS ####[facility] [address] [place], [address] Eosinophils/100 WBC (Bld) 0.7 % Normal 0-5 [facility] Comment on above: Performed By: #### L 3890.6100, L3890.6300, L100.0100, L509.8000, L509.4005, BTS ####[facility] [address] [place], [address] Erythrocyte distribution width (RBC) [Ratio] 12.3 % Normal 11.6-14.6 [facility] Comment on above: Performed By: #### L 3890.6100, L3890.6300, L100.0100, L509.8000, L509.4005, BTS ####[facility] [address] [place], [address] Hematocrit (Bld) [Volume fraction] 36.7 % Low 37-47 [facility] Comment on above: Performed By: #### L 3890.6100, L3890.6300, L100.0100, L509.8000, L509.4005, BTS ####[facility] [address] [place], [address] Hemoglobin (Bld) [Mass/Vol] 12.6 g/dL Normal 12.0-15.0 [facility] Comment on above: Performed By: #### L 3890.6100, L3890.6300, L100.0100, L509.8000, L509.4005, BTS ####[facility] [address] [place], [address] IG% 0.700 Normal 0.0-0.9 [facility] Comment on above: Result Comment: IG% - Immature Granulocytes (promyelocytes, myelocytes and metamyelocytes) > 1% indicates that a LEFT SHIFT is Present. Performed By: #### L 3890.6100, L3890.6300, L100.0100, L509.8000, L509.4005, BTS ####[facility] [address] [place], [address] Lymphocytes/100 WBC (Bld) 15.8 % Low 19-41 [facility] Comment on above: Performed By: #### L 3890.6100, L3890.6300, L100.0100, L509.8000, L509.4005, BTS ####[facility] [address] [place], [address] MCH (RBC) [Entitic mass] 31.3 pg Normal 27.0-32.0 [facility] Comment on above: Performed By: #### L 3890.6100, L3890.6300, L100.0100, L509.8000, L509.4005, BTS ####[facility] [address] [place], [address] MCHC (RBC) [Mass/Vol] 34.3 g/dL Normal 32-36 [facility] Comment on above: Performed By: #### L 3890.6100, L3890.6300, L100.0100, L509.8000, L509.4005, BTS ####[facility] [address] [place], [address] MCV (RBC) [Entitic vol] 91.3 fL Normal 81-99 [facility] Comment on above: Performed By: #### L 3890.6100, L3890.6300, L100.0100, L509.8000, L509.4005, BTS ####[facility] [address] [place], [address] Monocytes/100 WBC (Bld) 7.4 % Normal 0-10 [facility] Comment on above: Performed By: #### L 3890.6100, L3890.6300, L100.0100, L509.8000, L509.4005, BTS ####[facility] [address] [place], [address] Neutrophils/100 WBC (Bld) 75.0 % High 47-70 [facility] Comment on above: Performed By: #### L 3890.6100, L3890.6300, L100.0100, L509.8000, L509.4005, BTS ####[facility] [address] [place], [address] Nucleated RBC (Bld) [#/Vol] 0 10*3/uL Normal 0-5 [facility] Comment on above: Performed By: #### L 3890.6100, L3890.6300, L100.0100, L509.8000, L509.4005, BTS ####[facility] [address] [place], [address] Platelet mean volume (Bld) [Entitic vol] 9.6 fL Normal 6.2-12.0 [facility] Comment on above: Performed By: #### L 3890.6100, L3890.6300, L100.0100, L509.8000, L509.4005, BTS ####[facility] [address] [place], [address] Platelets (Bld) [#/Vol] 389 10*3/uL Normal 150-450 [facility] Comment on above: Performed By: #### L 3890.6100, L3890.6300, L100.0100, L509.8000, L509.4005, BTS ####[facility] [address] [place], [address] RBC (Bld) [#/Vol] 4.02 10*6/uL Low 4.2-5.4 [facility] Comment on above: Performed By: #### L 3890.6100, L3890.6300, L100.0100, L509.8000, L509.4005, BTS ####[facility] [address] [place], [address] RDW SD 41.1 fl Normal 35.1-43.9 [facility] Comment on above: Performed By: #### L 3890.6100, L3890.6300, L100.0100, L509.8000, L509.4005, BTS ####[facility] [address] [place], [address] WBC (Bld) [#/Vol] 13.6 10*3/uL High 4.4-11.0 [facility] Comment on above: Performed By: #### L 3890.6100, L3890.6300, L100.0100, L509.8000, L509.4005, BTS ####[facility] [address] [place], [address] Cervical or vagninal specime n microscopic examination by cytology stain (reported asOrdered By: Manjula Goldman on 10-04-2024 Cytology report Cyto stain Doc (Cvx/Vag) Comment . [facility] Comment on above: The Pap smear is [...] JOSE J+probe Ql (Unsp spec) Negative Negative [facility] Eosinophil percentageOrdered By: Manjula Goldman on 10-04-2024 Eosinophils/100 WBC (Bld) 0.7 % 0-5 [facility] Erythrocyte distribution wid th ratioOrdered By: Manjula Goldman on 10-04-2024 Erythrocyte distribution width (RBC) [Ratio] 12.3 % 11.6-14.6 [facility] Erythrocyte distribution wid th standard deviationOrdered By: Manjula Goldman on 10-04-2024 Erythrocyte distribution width (RBC) [Ratio] 41.1 fl 35.1-43.9 [facility] HIV 1 and HIV-2 antibody ass ay with HIV-1 p24 antigen detectionOrdered By: Manjula Goldman on 10-04-2024 HIV 1+2 Ab+HIV1 p24 Ag IA Ql Non-Reactive Nonreactive [facility] Hematocrit Auto (Bld) [Volum e fraction]Ordered By: Manjula Goldman on 10-04-2024 Hematocrit (Bld) [Volume fraction] 36.7 % Low 37-47 [facility] Hemoglobin measurementOrdere d By: Manjula Goldman on 10-04-2024 Hemoglobin (Bld) [Mass/Vol] 12.6 g/dL 12.0-15.0 [facility] Hepatitis B Surface Antigeno n 10-04-2024 HEP B Surf Ag Non-Reactive Normal Nonreactive [facility] Comment on above: Order Comment: Reaso n for Exam: Performed By: #### L 3890.6100, L3890.6300, L100.0100, L509.8000, L509.4005, BTS ####[facility] [address] [place], [place], [id number] Hepatitis C Antibodyon 10-04 Hepatitis C AB Non-Reactive Normal Nonreactive [facility] Comment on above: Order Comment: Reaso n for Exam: Result Comment: Non Reactive: < 0.8 Equivocal: >/= 0.8 to < 1.0 Reactive: >/= 1.0 The CDC requires that a reactive/equivocal HCV antibody result be sent out for confirmation. HCV Quant by PCR testing. Performed By: #### L 3890.6100, L3890.6300, L100.0100, L509.8000, L509.4005, BTS ####[facility] [address] [facility] [place], [place], [id number] Immature granulocytes/100 WB C Auto (Bld)Ordered By: Manjula Goldman on 10-04-2024 Immature granulocytes/100 WBC (Bld) 0.700 % 0.0-0.9 [facility] Comment on above: IG% - Immature Granu locytes (promyelocytes, myelocytes and metamyelocytes) > 1% indicates that a LEFT SHIFT is Present. L509.8000on 10-04-2024 Syphilis Abs Non-Reactive Normal [facility] Comment on above: Order Comment: Reaso n for Exam: Performed By: #### L 3890.6100, L3890.6300, L100.0100, L509.8000, L509.4005, BTS ####[facility] [address] [place], [address] Laboratory - CytologyOrdered By: Manjula Goldman on 10-04-2024 Aluminum Welder Cyto stain Nom (Cvx/Vag) [ID] Comment . [facility] Comment on above: Margarita Manzo-Ab crook, Renewals Specialist (ASCP) Laboratory - Miscellaneous t estsOrdered By: Manjula Goldman on 10-04-2024 Service comment (Unsp spec) [Interp] . . [facility] MCV (mean corpuscular volume ) determinationOrdered By: Manjula Goldman on 10-04-2024 MCV (RBC) [Entitic vol] 91.3 fL 81-99 [facility] Mean corpuscular hemoglobin (MCH) determinationOrdered By: Manjula Goldman on 10-04-2024 MCH (RBC) [Entitic mass] 31.3 pg 27.0-32.0 [facility] Mean corpuscular hemoglobin concentration (MCHC) determinationOrdered By: Manjula Goldman on 10-04-2024 MCHC (RBC) [Mass/Vol] 34.3 g/dL 32-36 [facility] Mean platelet volume determi nationOrdered By: Manjula Goldman on 10-04-2024 Platelet mean volume (Bld) [Entitic vol] 9.6 fL 6.2-12.0 [facility] Monocyte percentageOrdered B y: Manjula Goldman on 10-04-2024 Monocytes/100 WBC (Bld) 7.4 % 0-10 [facility] Neisseria gonorrhoeae nuclei c acid detection by amplified probe techniqueOrdered By: Manjula Goldman on 10-04-2024 N. gonorrhoeae DNA JOSE J+probe Ql (Unsp spec) Negative Negative [facility] Comment on above: Performed at: =[address] [id number] Director: Chayo Yi MD, Phone: [phone] Neutrophil percentageOrdered By: Manjula Goldman on 10-04-2024 Neutrophils/100 WBC (Bld) 75.0 % High 47-70 [facility] No Panel InformationOrdered By: Manjula Goldman on 10-04-2024 Pap Smear Specimen Adequacy Comment . [facility] Comment on above: Satisfactory for neetu luation. No endocervical component is identified. Nucleated red blood cell per centageOrdered By: Manjula Goldman on 10-04-2024 Nucleated RBC/100 WBC (Bld) [Ratio] 0 % 0-5 [facility] Service Girl Office Visit Reporton 10-04-2024 Service Girl Office Visit Report [facility] [address], [address] [place] [address] OFFICE VISIT Date of Service: 10/04/24 MR#: [id number] Acct: [id number] Name: JIMMY ATWOOD Rep #: [id number] 2 : 1995 Provider: QUITA Tanner ams Age/Sex: 29/F [place] [facility] [place]: Signed Intake Vital Signs 03/06/23 11:36 [...] No current occupational status: 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 Date Name GA/Weeks Outcome Route Bth Weight Infant Gen Labor Lgth Anesthesia Del Locatn Provider FOB 01/23/23 Cm 41 live - full term 9#1oz Male epidural [facility] Narcisa Hutchins Sudheer HPI NOB LMP 08/03 [...] -???- 171 (more content not included)... Normal [facility] Platelet countOrdered By: Lasha Goldman on 10-04-2024 Platelets (Bld) [#/Vol] 389 10*3/uL 150-450 [facility] RBC Auto (Bld) [#/Vol]Ordere d By: Manjula Goldman on 10-04-2024 RBC (Bld) [#/Vol] 4.02 10*6/uL Low 4.2-5.4 [facility] Rubella IgGon 10-04-2024 Rubella IgG Reactive Normal Nonreactive [facility] Comment on above: Order Comment: Reaso n for Exam: Result Comment: Anti body Results Interpretation of Immune Status Non Reactive Presumed Non-Immune Equivocal Equivocal Reactive Presumed Immune Performed By: #### L 3890.6100, L3890.6300, L100.0100, L509.8000, L509.4005, BTS ####[facility] [address] [place], [address] Serum Treponema species anti body detectionOrdered By: Manjula Goldman on 10-04-2024 Treponema sp Ab Ql (S) Non-Reactive [facility] Type AND Screenon 10-04-2024 Ab SCREEN GEL Negative Normal [facility] Comment on above: Order Comment: PN Performed By: #### L 3890.6100, L3890.6300, L100.0100, L509.8000, L509.4005, BTS ####[facility] [address] [place], [address] ABO and Rh group Nom (Bld) Blood group O Rh(D) positive Normal [facility] Comment on above: Order Comment: PN Performed By: #### L 3890.6100, L3890.6300, L100.0100, L509.8000, L509.4005, BTS ####[facility] [address] [place], [address] Urine cultureOrdered By: Jared Goldman on 10-04-2024 Bacteria identified Cx Nom (U) Culture exhibits no growth. [facility] White blood cell (WBC) count Ordered By: Manjula Goldman on 10-04-2024 WBC (Bld) [#/Vol] 13.6 10*3/uL High 4.4-11.0 [facility] Absolute lymphocyte countOrd ered By: Roxannlinda Michaels on 06-29-2023 Lymphocytes Auto (Unsp spec) [#/Vol] 2.73 10*3/uL 0.83-4.51 [facility] Basophil percentageOrdered B y: Roxann Michaels on 06-29-2023 Basophils/100 WBC (Bld) 1.1 % 0-1 [facility] Bilirubin [Mass/Vol] 1.50 mg/dL 0.20-1.00 [facility] Comment on above: For patients on eltr ombopag therapy, use of Dimension Todd TBIL is not recommended. Chloride [Moles/Vol] 106 mmol/L 98-107 [facility] Eosinophils/100 WBC (Bld) 5.4 % 0-5 [facility] Glucose [Mass/Vol] 89 mg/dL 74-106 [facility] Neutrophils (Bld) [#/Vol] 3.4 10*3/uL 2.0-7.7 [facility] Neutrophils/100 WBC (Bld) 46.9 % 47-70 [facility] Potassium [Moles/Vol] 3.6 mmol/L 3.5-5.1 [facility] Protein [Mass/Vol] 7.4 g/dL 6.4-8.2 [facility] Sodium [Moles/Vol] 140 mmol/L 136-145 [facility] WBC (Bld) [#/Vol] 7.2 10*3/uL 4.4-11.0 [facility] Blood erythrocytes count (nu mber/volume)Ordered By: Roxann Michaels on 06-29-2023 RBC (Bld) [#/Vol] 4.40 10*6/uL 4.2-5.4 [facility] Blood hemoglobin measurement (mass/volume)Ordered By: Roxann Michaels on 06-29-2023 Hemoglobin (Bld) [Mass/Vol] 13.3 g/dL 12.0-15.0 [facility] Blood lymphocytes/100 leukoc ytesOrdered By: Roxann Michaels on 06-29-2023 Lymphocytes/100 WBC (Bld) 37.7 % 19-41 [facility] Blood monocytes/100 leukocyt esOrdered By: Roxann Michaels on 06-29-2023 Monocytes/100 WBC (Bld) 8.6 % 0-10 [facility] Blood platelet mean volumeOr dered By: Roxann Michaels on 06-29-2023 Platelet mean volume (Bld) [Entitic vol] 9.1 fL 6.2-12.0 [facility] Determination of erythrocyte mean corpuscular volume (MCV)Ordered By: Roxann Michaels on 06-29-2023 MCV (RBC) [Entitic vol] 90.7 fL 81-99 [facility] Hematocrit Auto (Bld) [Volum e fraction]Ordered By: Roxann Michaels on 06-29-2023 Hematocrit (Bld) [Volume fraction] 39.9 % 37-47 [facility] Laboratory - Chemistry and C hemistry - challengeOrdered By: Roxannlinda Michaels on 06-29-2023 ALP [Catalytic activity/Vol] 106 U/L 45-117 [facility] ALT [Catalytic activity/Vol] 18 U/L 13-56 [facility] CO2 [Moles/Vol] 28.0 mmol/L 21.0-32.0 [facility] Globulin (S) [Mass/Vol] 3.6 g/dL 2.2-4.2 [facility] T4 [Mass/Vol] 8.9 ug/dL 4.8-13.9 [facility] Urea nitrogen/Creatinine [Mass ratio] 17.8 mg/mg 10-20 [facility] Laboratory - Hematology and Cell countsOrdered By: Roxann Michaels on 06-29-2023 Erythrocyte distribution width (RBC) [Entitic vol] 40.7 fL 35.1-43.9 [facility] Erythrocyte distribution width (RBC) [Ratio] 12.2 % 11.6-14.6 [facility] Immature granulocytes/100 WBC (Bld) 0.300 % 0.0-0.9 [facility] Comment on above: IG% - Immature Granu locytes (promyelocytes, myelocytes and metamyelocytes) > 1% indicates that a LEFT SHIFT is Present. MCH (RBC) [Entitic mass] 30.2 pg 27.0-32.0 [facility] Nucleated RBC/100 WBC (Bld) [Ratio] 0 % 0-5 [facility] MCHC Auto (RBC) [Mass/Vol]Or dered By: Roxann Michaels on 06-29-2023 MCHC (RBC) [Mass/Vol] 33.3 g/dL 32-36 [facility] Mitotic spindle apparatus Ab [Titer] in Serum or PlasmaOrdered By: Roxann Michaels on 06-29-2023 Mitotic spindle apparatus Ab [Titer] Not Reportable [facility] No Panel InformationOrdered By: Roxann Michaels on 06-29-2023 SARAI Nuclear Membrane Pattern Not Reportable [facility] Estimated GFR (MDRD) Amer 122 mL/min >60 [facility] Comment on above: GFR Calc Estimated GFR (MDRD) Non-Af Amer 101 mL/min >60 [facility] Comment on above: Non- GFR Calc Thyroid Stimulating Hormone (TSH) 1.55 uIU/mL 0.358-3.74 [facility] Total Triiodothyronine 1.35 ng/mL 0.6-1.81 [facility] Platelets bldOrdered By: Ermias Michaels on 06-29-2023 Platelets (Bld) [#/Vol] 404 10*3/uL 150-450 [facility] Serum midbody antibody titer by immunofluorescenceOrdered By: Roxann Michaels on 06-29-2023 Midbody Ab IF (S) [Titer] Not Reportable [facility] Serum multiple nuclear dot p attern antinuclear IgG antibody (SARAI) titer by immunofluoOrdered By: Roxann Michaels on 06-29-2023 Multiple nuclear dots nuclear IgG pattern IF (S) [Titer] Not Reportable [facility] Serum neuronal nuclear antib arvin detection by immunofluorescenceOrdered By: Roxann Michaels on 06-29-2023 Neuronal nuclear Ab IF Ql (S) Not Reportable [facility] Serum nuclear antibody patte rn homogenous titer by immunofluorescenceOrdered By: Roxann Michaels on 06-29-2023 Homogenous nuclear Ab pattern IF (S) [Titer] Not Reportable [facility] Serum nuclear antibody titer by immunofluorescenceOrdered By: Roxann Michaels on 06-29-2023 Nuclear Ab IF (S) [Titer] Negative . [facility] Comment on above: Negative <1:80 Borde rline 1:80 Positive >1:80ICAP nomenclature: AC-0For more information about Hep-2 cell patterns useANApatterns.org, the official website for theInternational Consensus on Antinuclear Antibody (SARAI)Patterns (ICAP).Performed at: [facility] [address] [id number] Director: Guzman Darnell PhD, Phone: [phone] Serum or plasma albumin norma urement (mass/volume)Ordered By: Roxann Michaels on 06-29-2023 Albumin [Mass/Vol] 3.8 g/dL 3.2-5.0 [facility] Serum or plasma albumin/glob ulin mass ratioOrdered By: Roxann Michaels on 06-29-2023 Albumin/Globulin [Mass ratio] 1.1 {ratio} 0.9-2.4 [facility] Serum or plasma calcium norma urement (mass/volume)Ordered By: Roxann Michaels on 06-29-2023 Calcium [Mass/Vol] 9.0 mg/dL 8.5-10.1 [facility] Serum or plasma creatinine m easurement (mass/volume)Ordered By: Roxann Michaels on 06-29-2023 Creatinine [Mass/Vol] 0.73 mg/dL 0.55-1.02 [facility] Comment on above: The validity of the calculated GFR & GFRAA in patients over 70 years has not been determined. Clinical correlation is essential. Serum or plasma ferritin shekhar surement (mass/volume)Ordered By: Roxann Michaels on 06-29-2023 Ferritin [Mass/Vol] 25 ng/mL 8-252 [facility] Serum or plasma thyroperoxid ase antibody assay (units/volume)Ordered By: Roxann Michaels on 06-29-2023 TPO Ab Qn [IU]/mL 0-34 [facility] Comment on above: Performed at: [facility] [address] [id number] Director: Guzman Darnell PhD, Phone: [phone] Serum or plasma urea nitroge n measurement (mass/volume)Ordered By: Roxann Michaels on 06-29-2023 Urea nitrogen [Mass/Vol] 13 mg/dL 7-18 [facility] Serum proliferating cell nuc lear antigen (PCNA) antibody titer by immunofluorescenceOrdered By: Roxann Michaels on 06-29-2023 PCNA extractable nuclear Ab IF (S) [Titer] Not Reportable [facility] Serum speckled nuclear antib arvin pattern titerOrdered By: Roxann Michaels on 06-29-2023 Speckled nuclear Ab pattern (S) [Titer] Not Reportable [facility] Thin prep Papanicolaou smear with manual screeningOrdered By: Roxann Michaels on 06-29-2023 Thin prep Papanicolaou smear with manual screening 9 U/L 15-37 [facility] Thin prep Papanicolaou smear with manual screening 6 5-15 [facility] Thin prep Papanicolaou smear with manual screening Not Reportable [facility] Glucose Glucometer (BldC) [M ass/Vol]Ordered By: Payal Hutchins on 01-24-2023 Glucose [Mass/Vol] 86 mg/dL 74-106 [facility] Comment on above: MANAGEMENT OF PATIEN T CARE PER NURSING PROTOCOL Absolute lymphocyte countOrd ered By: Dr. Gay on 01-23-2023 Lymphocytes Auto (Unsp spec) [#/Vol] 1.56 10*3/uL 0.83-4.51 [facility] Basophil percentageOrdered B y: Dr. Gay on 01-23-2023 Basophils/100 WBC (Bld) 0.3 % 0-1 [facility] Eosinophils/100 WBC (Bld) 0.7 % 0-5 [facility] Neutrophils (Bld) [#/Vol] 6.4 10*3/uL 2.0-7.7 [facility] Neutrophils/100 WBC (Bld) 72.8 % 47-70 [facility] WBC (Bld) [#/Vol] 8.7 10*3/uL 4.4-11.0 [facility] Blood erythrocytes count (nu mber/volume)Ordered By: Dr. Gay on 01-23-2023 RBC (Bld) [#/Vol] 3.62 10*6/uL 4.2-5.4 [facility] Blood hemoglobin measurement (mass/volume)Ordered By: Dr. Gay on 01-23-2023 Hemoglobin (Bld) [Mass/Vol] 11.1 g/dL 12.0-15.0 [facility] Blood lymphocytes/100 leukoc ytesOrdered By: Dr. Gay on 01-23-2023 Lymphocytes/100 WBC (Bld) 17.9 % 19-41 [facility] Blood monocytes/100 leukocyt esOrdered By: Dr. Gay on 01-23-2023 Monocytes/100 WBC (Bld) 7.3 % 0-10 [facility] Blood platelet mean volumeOr dered By: Dr. Gay on 01-23-2023 Platelet mean volume (Bld) [Entitic vol] 11.0 fL 6.2-12.0 [facility] Determination of erythrocyte mean corpuscular volume (MCV)Ordered By: Dr. Gay on 01-23-2023 MCV (RBC) [Entitic vol] 92.8 fL 81-99 [facility] Hematocrit Auto (Bld) [Volum e fraction]Ordered By: Dr. Gay on 01-23-2023 Hematocrit (Bld) [Volume fraction] 33.6 % 37-47 [facility] Laboratory - Hematology and Cell countsOrdered By: Dr. Gay on 01-23-2023 Erythrocyte distribution width (RBC) [Entitic vol] 48.1 fL 35.1-43.9 [facility] Erythrocyte distribution width (RBC) [Ratio] 14.3 % 11.6-14.6 [facility] Immature granulocytes/100 WBC (Bld) 1.000 % 0.0-0.9 [facility] Comment on above: IG% - Immature Granu locytes (promyelocytes, myelocytes and metamyelocytes) > 1% indicates that a LEFT SHIFT is Present. MCH (RBC) [Entitic mass] 30.7 pg 27.0-32.0 [facility] Nucleated RBC/100 WBC (Bld) [Ratio] 0 % 0-5 [facility] MCHC Auto (RBC) [Mass/Vol]Or dered By: Dr. Gay on 01-23-2023 MCHC (RBC) [Mass/Vol] 33.0 g/dL 32-36 [facility] Platelets bldOrdered By: Dr. Gay on 01-23-2023 Platelets (Bld) [#/Vol] 251 10*3/uL 150-450 [facility] Serum Treponema species anti body detectionOrdered By: Dr. Gay on 01-23-2023 Treponema sp Ab Ql (S) Non-Reactive [facility] Laboratory - Chemistry and C hemistry - challengeon 01-18-2023 Glucose Ql (U) Negative [facility] Laboratory - Urinalysison Protein Ql (U) Trace [facility] Laboratory - Chemistry and C hemistry - challengeon 01-09-2023 Glucose Ql (U) Negative [facility] Laboratory - Urinalysison Protein Ql (U) Negative [facility] Laboratory - Chemistry and C hemistry - challengeon 01-03-2023 Glucose Ql (U) Negative [facility] Laboratory - Urinalysison Protein Ql (U) Negative [facility] Laboratory - Chemistry and C hemistry - challengeon 12-28-2022 Glucose Ql (U) Negative [facility] Laboratory - Urinalysison Protein Ql (U) Negative [facility] No Panel InformationOrdered By: Dr. Bolden on 12-24-2022 Group B Streptococcus Culture Streptococcus agalactiae (B) [facility] Laboratory - Chemistry and C hemistry - challengeon 12-20-2022 Glucose Ql (U) Negative [facility] Laboratory - Urinalysison Protein Ql (U) Negative [facility] Laboratory - Chemistry and C hemistry - challengeon 12-07-2022 Glucose Ql (U) Negative [facility] Laboratory - Urinalysison Protein Ql (U) Negative [facility] Absolute lymphocyte countOrd ered By: Tania Gutiérrez on 11-22-2022 Lymphocytes Auto (Unsp spec) [#/Vol] 1.74 10*3/uL 0.83-4.51 [facility] Basophil percentageOrdered B y: Tania Gutiérrez on 11-22-2022 Basophils/100 WBC (Bld) 0.5 % 0-1 [facility] Eosinophils/100 WBC (Bld) 0.7 % 0-5 [facility] Neutrophils (Bld) [#/Vol] 7.0 10*3/uL 2.0-7.7 [facility] Neutrophils/100 WBC (Bld) 70.7 % 47-70 [facility] WBC (Bld) [#/Vol] 9.9 10*3/uL 4.4-11.0 [facility] Blood erythrocytes count (nu mber/volume)Ordered By: Tania Gutiérrez on 11-22-2022 RBC (Bld) [#/Vol] 3.52 10*6/uL 4.2-5.4 [facility] Blood hemoglobin measurement (mass/volume)Ordered By: Tania Gutiérrez on 11-22-2022 Hemoglobin (Bld) [Mass/Vol] 11.1 g/dL 12.0-15.0 [facility] Blood lymphocytes/100 leukoc ytesOrdered By: Tania Gutiérrez on 11-22-2022 Lymphocytes/100 WBC (Bld) 17.6 % 19-41 [facility] Blood monocytes/100 leukocyt esOrdered By: Tania Gutiérrez on 11-22-2022 Monocytes/100 WBC (Bld) 9.2 % 0-10 [facility] Blood platelet mean volumeOr dered By: Tania Gutiérrez on 11-22-2022 Platelet mean volume (Bld) [Entitic vol] 9.6 fL 6.2-12.0 [facility] Determination of erythrocyte mean corpuscular volume (MCV)Ordered By: Tania Gutiérrez on 11-22-2022 MCV (RBC) [Entitic vol] 96.0 fL 81-99 [facility] Hematocrit Auto (Bld) [Volum e fraction]Ordered By: Tania Gutiérrez on 11-22-2022 Hematocrit (Bld) [Volume fraction] 33.8 % 37-47 [facility] Laboratory - Chemistry and C hemistry - challengeon 11-22-2022 Glucose Ql (U) Negative [facility] Laboratory - Hematology and Cell countsOrdered By: Tania Gutiérrez on 11-22-2022 Erythrocyte distribution width (RBC) [Entitic vol] 49.7 fL 35.1-43.9 [facility] Erythrocyte distribution width (RBC) [Ratio] 14.2 % 11.6-14.6 [facility] Immature granulocytes/100 WBC (Bld) 1.300 % 0.0-0.9 [facility] Comment on above: IG% - Immature Granu locytes (promyelocytes, myelocytes and metamyelocytes) > 1% indicates that a LEFT SHIFT is Present. MCH (RBC) [Entitic mass] 31.5 pg 27.0-32.0 [facility] Nucleated RBC/100 WBC (Bld) [Ratio] 0 % 0-5 [facility] Laboratory - Urinalysison Protein Ql (U) Negative [facility] MCHC Auto (RBC) [Mass/Vol]Or dered By: Tania Gutiérrez on 11-22-2022 MCHC (RBC) [Mass/Vol] 32.8 g/dL 32-36 [facility] Platelets bldOrdered By: Ameena Gutiérrez on 11-22-2022 Platelets (Bld) [#/Vol] 293 10*3/uL 150-450 [facility] Laboratory - Chemistry and C hemistry - challengeon 11-09-2022 Glucose Ql (U) Negative [facility] Laboratory - Urinalysison Protein Ql (U) Negative [facility] Quantitative serum or plasma 3 hour gestational glucose tolerance panelOrdered By: Tania Gutiérrez on 10-31-2022 Glucose tolerance 3 hours gestational panel See comment [facility] Comment on above: FASTING 89 Col: 10/19 11/10 0655GLUCOSE TOLERANCE TEST FOR Reference Interval GESTATIONAL DIABETES Fasting <105 mg/dL 1 hour <190 mg/dl 2 hour <165 mg/dl 3 hour <145 mg/dl Absolute lymphocyte countOrd ered By: Dr. Gay on 10-27-2022 Lymphocytes Auto (Unsp spec) [#/Vol] 1.34 10*3/uL 0.83-4.51 [facility] Basophil percentageOrdered B y: Dr. Gay on 10-27-2022 Basophils/100 WBC (Bld) 0.3 % 0-1 [facility] Eosinophils/100 WBC (Bld) 0.7 % 0-5 [facility] Neutrophils (Bld) [#/Vol] 7.5 10*3/uL 2.0-7.7 [facility] Neutrophils/100 WBC (Bld) 76.1 % 47-70 [facility] WBC (Bld) [#/Vol] 9.9 10*3/uL 4.4-11.0 [facility] Blood erythrocytes count (nu mber/volume)Ordered By: Dr. Gay on 10-27-2022 RBC (Bld) [#/Vol] 3.14 10*6/uL 4.2-5.4 [facility] Blood hemoglobin measurement (mass/volume)Ordered By: Dr. Gay on 10-27-2022 Hemoglobin (Bld) [Mass/Vol] 10.3 g/dL 12.0-15.0 [facility] Blood lymphocytes/100 leukoc ytesOrdered By: Dr. Gay on 10-27-2022 Lymphocytes/100 WBC (Bld) 13.5 % 19-41 [facility] Blood monocytes/100 leukocyt esOrdered By: Dr. Gay on 10-27-2022 Monocytes/100 WBC (Bld) 7.5 % 0-10 [facility] Blood platelet mean volumeOr dered By: Dr. Gay on 10-27-2022 Platelet mean volume (Bld) [Entitic vol] 9.4 fL 6.2-12.0 [facility] Determination of erythrocyte mean corpuscular volume (MCV)Ordered By: Dr. Gay on 10-27-2022 MCV (RBC) [Entitic vol] 94.9 fL 81-99 [facility] Gestational diabetes screen 1-hour screen with 50g oral glucose loadOrdered By: Dr. Gay on 10-27-2022 Glucose 1 Hr post 50 g glucose PO [Mass/Vol] 149 mg/dL 70-140 [facility] HIV 1 and HIV-2 antibody ass ay with HIV-1 p24 antigen detectionOrdered By: Dr. Gay on 10-27-2022 HIV 1+2 Ab+HIV1 p24 Ag IA Ql Non-Reactive Nonreactive [facility] Hematocrit Auto (Bld) [Volum e fraction]Ordered By: Dr. Gay on 10-27-2022 Hematocrit (Bld) [Volume fraction] 29.8 % 37-47 [facility] Laboratory - Chemistry and C hemistry - challengeon 10-27-2022 Glucose Ql (U) Negative [facility] Laboratory - Hematology and Cell countsOrdered By: Dr. Gay on 10-27-2022 Erythrocyte distribution width (RBC) [Entitic vol] 44.5 fL 35.1-43.9 [facility] Erythrocyte distribution width (RBC) [Ratio] 13.2 % 11.6-14.6 [facility] Immature granulocytes/100 WBC (Bld) 1.900 % 0.0-0.9 [facility] Comment on above: IG% - Immature Granu locytes (promyelocytes, myelocytes and metamyelocytes) > 1% indicates that a LEFT SHIFT is Present. MCH (RBC) [Entitic mass] 32.8 pg 27.0-32.0 [facility] Nucleated RBC/100 WBC (Bld) [Ratio] 0 % 0-5 [facility] Laboratory - Urinalysison Protein Ql (U) Negative [facility] MCHC Auto (RBC) [Mass/Vol]Or dered By: Dr. Gay on 10-27-2022 MCHC (RBC) [Mass/Vol] 34.6 g/dL 32-36 [facility] Platelets bldOrdered By: Dr. Gay on 10-27-2022 Platelets (Bld) [#/Vol] 321 10*3/uL 150-450 [facility] Serum Treponema species anti body detectionOrdered By: Dr. Gay on 10-27-2022 Treponema sp Ab Ql (S) Non-Reactive [facility] Laboratory - Chemistry and C hemistry - challengeon 10-03-2022 Glucose Ql (U) Negative [facility] Laboratory - Urinalysison Protein Ql (U) Negative [facility] Laboratory - Chemistry and C hemistry - challengeon 09-05-2022 Glucose Ql (U) Negative [facility] Laboratory - Urinalysison Protein Ql (U) Negative [facility] Laboratory - Chemistry and C hemistry - challengeon 08-03-2022 Glucose Ql (U) Negative [facility] Laboratory - Urinalysison Protein Ql (U) Negative [facility] Absolute lymphocyte counton 07-04-2022 Lymphocytes Auto (Unsp spec) [#/Vol] 1.95 10*3/uL 0.83-4.51 [facility] Work Phone: Basophil percentageon 2021 Basophils/100 WBC (Bld) 0.5 % 0-1 [facility] Work Phone: Bilirubin [Mass/Vol] 0.90 mg/dL 0.20-1.00 [facility] Work Phone: Comment on above: For patients on eltr ombopag therapy, use of Dimension Todd TBIL is not recommended. Eosinophils/100 WBC (Bld) 1.3 % 0-5 [facility] Work Phone: Neutrophils (Bld) [#/Vol] 7.3 10*3/uL 2.0-7.7 [facility] Work Phone: Neutrophils/100 WBC (Bld) 70.0 % 47-70 [facility] Work Phone: WBC (Bld) [#/Vol] 10.5 10*3/uL 4.4-11.0 [facility] Work Phone: Blood erythrocytes count (nu mber/volume)on 07-04-2022 RBC (Bld) [#/Vol] 3.77 10*6/uL 4.2-5.4 [facility] Work Phone: Blood hemoglobin measurement (mass/volume)on 07-04-2022 Hemoglobin (Bld) [Mass/Vol] 12.4 g/dL 12.0-15.0 [facility] Work Phone: Blood lymphocytes/100 leukoc yteson 07-04-2022 Lymphocytes/100 WBC (Bld) 18.7 % 19-41 [facility] Work Phone: Blood monocytes/100 leukocyt eson 07-04-2022 Monocytes/100 WBC (Bld) 9.0 % 0-10 [facility] Work Phone: Blood platelet mean volumeon 07-04-2022 Platelet mean volume (Bld) [Entitic vol] 9.6 fL 6.2-12.0 [facility] Work Phone: Determination of erythrocyte mean corpuscular volume (MCV)on 07-04-2022 MCV (RBC) [Entitic vol] 92.6 fL 81-99 [facility] Work Phone: Direct bilirubinon Bilirubin.direct [Mass/Vol] 0.26 mg/dL 0.00-0.30 [facility] Work Phone: HIV 1 and HIV-2 antibody ass ay with HIV-1 p24 antigen detectionon 07-04-2022 HIV 1+2 Ab+HIV1 p24 Ag IA Ql Non-Reactive Nonreactive [facility] Work Phone: Hematocrit Auto (Bld) [Volum e fraction]on 07-04-2022 Hematocrit (Bld) [Volume fraction] 34.9 % 37-47 [facility] Work Phone: Laboratory - Chemistry and C hemistry - challengeon 07-04-2022 Glucose Ql (U) Negative [facility] Work Phone: Laboratory - Hematology and Cell countson 07-04-2022 Erythrocyte distribution width (RBC) [Entitic vol] 43.5 fL 35.1-43.9 [facility] Work Phone: Erythrocyte distribution width (RBC) [Ratio] 13.0 % 11.6-14.6 [facility] Work Phone: Immature granulocytes/100 WBC (Bld) 0.500 % 0.0-0.9 [facility] Work Phone: Comment on above: IG% - Immature Granu locytes (promyelocytes, myelocytes and metamyelocytes) > 1% indicates that a LEFT SHIFT is Present. MCH (RBC) [Entitic mass] 32.9 pg 27.0-32.0 [facility] Work Phone: Nucleated RBC/100 WBC (Bld) [Ratio] 0 % 0-5 [facility] Work Phone: Laboratory - Urinalysison Protein Ql (U) Negative [facility] Work Phone: MCHC Auto (RBC) [Mass/Vol]on 07-04-2022 MCHC (RBC) [Mass/Vol] 35.5 g/dL 32-36 [facility] Work Phone: No Panel Informationon 07-04 Hepatitis B Surface Antigen Non-Reactive Nonreactive [facility] Work Phone: Hepatitis C Antibody Non-Reactive Nonreactive [facility] Work Phone: Comment on above: Non Reactive: < 0.8 Equivocal: >/= 0.8 to < 1.0 Reactive: >/= 1.0The CDC recommends that a reactive/equivocal HCV antibody result be followed up by the HCV Nucleic Acid Amplificationtest (783487) Rubella IgG Antibody Reactive Nonreactive [facility] Work Phone: Comment on above: Antibody Results Int erpretation of Immune Status Non Reactive Presumed Non-Immune Equivocal Equivocal Reactive Presumed Immune Platelets bldon 07-04-2022 Platelets (Bld) [#/Vol] 346 10*3/uL 150-450 [facility] Work Phone: Serum Treponema species anti body detectionon 07-04-2022 Treponema sp Ab Ql (S) Non-Reactive [facility] Work Phone: Cervical or vagninal specime n microscopic examination by cytology stain (reported ason 06-08-2022 Cytology report Cyto stain Doc (Cvx/Vag) Comment . [facility] Work Phone: Comment on above: The Pap [...] JOSE J+probe Ql (Unsp spec) Negative Negative [facility] Work Phone: Laboratory - Cytologyon 05-21 Aluminum Welder Cyto stain Nom (Cvx/Vag) [ID] Comment . [facility] Work Phone: Comment on above: Nolan Caputo, Renewals Specialist (ASCP) Laboratory - Drug toxicology on 06-08-2022 Amphetamines Ql (U) Negative <1000 ng/mL [facility] Work Phone: Benzodiazepines Ql (U) Negative < 200 ng/mL [facility] Work Phone: Cannabinoids Screen Ql (U) Negative < 50 ng/m L [facility] Work Phone: Cocaine Ql (U) Negative < 300 ng/mL [facility] Work Phone: Opiates Ql (U) Negative < 300 ng/mL [facility] Work Phone: Laboratory - Microbiology an d Antimicrobial susceptibilityon 06-08-2022 N. gonorrhoeae DNA JOSE J+probe Ql (Unsp spec) Negative Negative [facility] Work Phone: Comment on above: Performed at: =G - L [address] [id number] Director: Chayo Yi MD, Phone: [phone] Laboratory - Miscellaneous t estson 06-08-2022 Service comment (Unsp spec) [Interp] Comment . [facility] Work Phone: Comment on above: This liquid based Th inPrep(R) pap test was screened withthe use of an image guided system. Service comment (Unsp spec) [Interp] . . [facility] Work Phone: No Panel Informationon 06-08 Human Papillomavirus Screen Comment . [facility] Work Phone: Comment on above: The HPV DNA reflex c riteria were not met with this specimenresult therefore, no HPV testing was performed.Performed at: - [facility] [address] [id number] Director: Chayo Yi MD, Phone: [phone] MDMA (Ecstasy) Screen Negative < 500 ng/mL [facility] Work Phone: Pathology report final diagnosis Narrative Comment . [facility] Work Phone: Comment on above: NEGATIVE FOR INTRAEP ITHELIAL LESION OR MALIGNANCY. Urine Barbiturates Screen Negative < 200 ng/m L [facility] Work Phone: Urine Drug Screen Comment [facility] Work Phone: Comment on above: CONFIRMATORY TESTING [...] Methadone Screen Negative < 300 ng/mL [facility] Work Phone: Urine phencyclidine (PCP) de tectionon 06-08-2022 Phencyclidine Ql (U) Negative < 25 ng/mL [facility] Work Phone: Laboratory - Microbiology an d Antimicrobial susceptibilityon 03-30-2022 SARS-CoV-2 (COVID-19) RNA JOSE J+probe Ql (Unsp spec) Not detected [facility] Work Phone: No Panel Informationon 03-30 Influenza Types A,B Rapid (Clinic) Not detected [facility] Work Phone: GC/Chlamydia Amp, Uron 07-06 Chlamydia Amplif, Ur Normal [facility] Comment on above: Result Comment: Nega tive for For screening asymptomatic women, a vaginal swab specimen (APTIMA vaginal swab 332821) is optimal. Urine specimens have reduced sensitivity for Chlamydia trachomatis or Neisseria gonorrhoeae infection in female patients without symptoms. This test was developed and its performance characteristics determined by [facility] and [facility] [place] ([facility]). It has not been cleared or approved by the FDA. [facility] is regulated under CLIA as qualified to perform high complexity testing. This test is used for clinical purposes. It should not be regarded as investigational or for research. Chlamydia For screening asymptomatic women, a vaginal swab specimen (APTIMA vaginal swab 789811) is optimal. Urine specimens have reduced sensitivity for Chlamydia trachomatis or Neisseria gonorrhoeae infection in female patients without symptoms. This test was developed and its performance characteristics determined by [facility] and Laboratory [facility] [place] ([facility]). It has not been cleared or approved by the FDA. [facility] is regulated under CLIA as qualified to perform high complexity testing. This test is used for clinical purposes. It should not be regarded as investigational or for research. trachomatis by For screening asymptomatic women, a vaginal swab specimen (APTIMA vaginal swab 362160) is optimal. Urine specimens have reduced sensitivity for Chlamydia trachomatis or Neisseria gonorrhoeae infection in female patients without symptoms. This test was developed and its performance characteristics determined by [facility] and [facility] [place] ([facility]). It has not been cleared or approved by the FDA. [facility] is regulated under CLIA as qualified to perform high complexity testing. This test is used for clinical purposes. It should not be regarded as investigational or for research. amplification. For screening asymptomatic women, a vaginal swab specimen (APTIMA vaginal swab 403758) is optimal. Urine specimens have reduced sensitivity for Chlamydia trachomatis or Neisseria gonorrhoeae infection in female patients without symptoms. This test was developed and its performance characteristics determined by [facility] and [facility] [place] ([facility]). It has not been cleared or approved by the FDA. [facility] is regulated under CLIA as qualified to perform high complexity testing. This test is used for clinical purposes. It should not be regarded as investigational or for research. Performed By: #### U GCCT #### [facility] Routine Lab [address] [place], [place] [address] GC Amplification, Ur NGNEG Normal [facility] Reference [facility] Comment on above: Performed By: #### U GCCT #### [facility] [address] [place], [place] [address] Culture, urine Bacteria identified Cx Nom (U) Culture exhibits no growth. [facility] Work Phone: Vital Signs Date Time Vital Sign Value Performing Clinician Cristy allen 05-07-2025 15:26-0400 Body height 170.18 cm Yudi Méndez ODD B[employer]DLE WORKER-C Work Phone: [facility] 05-07-2025 15:26-0400 Body mass index (BMI) [Ratio] 29.8 kg/m2 Yudi Méndez ODD B[employer]DLE WORKER-C Work Phone: [facility] 05-07-2025 15:26-0400 Body weight 86.43 kg Yudi Méndez ODD B[employer]DLE WORKER-C Work Phone: [facility] 05-07-2025 15:26-0400 Diastolic blood pressure 76 mm[Hg] Yudi Méndez ODD B[employer]DLE WORKER-C Work Phone: [facility] 05-07-2025 15:26-0400 Systolic blood pressure 122 mm[Hg] Yudi Méndez ODD B[employer]DLE WORKER-C Work Phone: [facility] 04-30-2025 15:00-0400 Body height 170.18 cm Yudi Méndez ODD BUNDLE WORKER-C Work Phone: [facility] 04-30-2025 15:00-0400 Body mass index (BMI) [Ratio] 29.6 kg/m2 Yudi Méndez ODD B[employer]DLE WORKER-C Work Phone: [facility] 04-30-2025 15:00-0400 Body weight 85.72 kg Yudi Méndez ODD B[employer]DLE WORKER-C Work Phone: [facility] 04-30-2025 15:00-0400 Diastolic blood pressure 72 mm[Hg] Yudi Méndez ODD B[employer]DLE WORKER-C Work Phone: [facility] 04-30-2025 15:00-0400 Systolic blood pressure 118 mm[Hg] Yudi Méndez ODD BUNDLE WORKER-C Work Phone: [facility] 04-24-2025 13:50-0400 Body height 170.18 cm Yudi Aris ODD BUNDLE WORKER-C Work Phone: [facility] 04-24-2025 13:50-0400 Body mass index (BMI) [Ratio] 29.2 kg/m2 Yudi Aris ODD BUNDLE WORKER-C Work Phone: [facility] 04-24-2025 13:50-0400 Body weight 84.82 kg Yudi Aris ODD B[employer]DLE WORKER-C Work Phone: [phone](850)146-202829 [address] 04-24-2025 13:50-0400 Diastolic blood pressure 69 mm[Hg] Yudi Aris ODD B[employer]DLE WORKER-C Work Phone: 3(722)996-758329 [address] 04-24-2025 13:50-0400 Systolic blood pressure 115 mm[Hg] Yudi Aris ODD BUNDLE WORKER-C Work Phone: 6(671)098-643200 [place] [address] 04-16-2025 15:28-0400 Body height 170.18 cm Yudi Aris ODD B[employer]DLE WORKER-C Work Phone: 5(063)123-875[address] [place] [address] 04-16-2025 15:28-0400 Body mass index (BMI) [Ratio] 29.3 kg/m2 Yudi Aris ODD B[employer]DLE WORKER-C Work Phone: 0(602)330-462429 [address] 04-16-2025 15:28-0400 Body weight 84.99 kg Yudi Aris ODD B[employer]DLE WORKER-C Work Phone: 2(125)[phone] [place] [address] 04-16-2025 15:28-0400 Diastolic blood pressure 73 mm[Hg] Yudi Aris ODD B[employer]DLE WORKER-C Work Phone: 1(147)207-636[address] [place] [address] 04-16-2025 15:28-0400 Systolic blood pressure 119 mm[Hg] Yudi Aris ODD BUNDLE WORKER-C Work Phone: 4(413)804-750029 [address] 03-31-2025 15:44-0400 Body height 170.18 cm Yudi Aris ODD B[employer]DLE WORKER-C Work Phone: 0(564)[phone] [place] [address] 03-31-2025 15:44-0400 Body mass index (BMI) [Ratio] 28.6 kg/m2 Yudi Aris ODD BUNDLE WORKER-C Work Phone: [facility] 03-31-2025 15:44-0400 Body weight 83 kg Yudi Méndez ODD BUNDLE WORKER-C Work Phone: [facility] 03-31-2025 15:44-0400 Diastolic blood pressure 71 mm[Hg] Yudi Méndez ODD B[employer]DLE WORKER-C Work Phone: [facility] 03-31-2025 15:44-0400 Systolic blood pressure 118 mm[Hg] Yudi Méndez ODD B[employer]DLE WORKER-C Work Phone: [facility] 03-23-2025 14:38-0400 Body temperature 98.3 [degF] Yudi Méndez ODD B[employer]DLE WORKER-C Work Phone: [facility] 03-23-2025 14:38-0400 Diastolic blood pressure 89 mm[Hg] Yudi Méndez ODD B[employer]DLE WORKER-C Work Phone: [facility] 03-23-2025 14:38-0400 Heart rate 77 /min Yudi Méndez ODD B[employer]DLE WORKER-C Work Phone: [facility] 03-23-2025 14:38-0400 Respiratory rate 16 /min Yudi Méndez ODD B[employer]DLE WORKER-C Work Phone: [facility] 03-23-2025 14:38-0400 SaO2% (BldA) [Mass fraction] 100 % Yudi Méndez ODD B[employer]DLE WORKER-C Work Phone: [facility] 03-23-2025 14:38-0400 Systolic blood pressure 132 mm[Hg] Yudi Méndez ODD B[employer]DLE WORKER-C Work Phone: [facility] 03-23-2025 12:58-0400 Body height 170.18 cm Yudi Méndez ODD B[employer]DLE WORKER-C Work Phone: [facility] 03-23-2025 12:58-0400 Body mass index (BMI) [Ratio] 28.1 kg/m2 Yudi Méndez ODD B[employer]DLE WORKER-C Work Phone: [facility] 03-23-2025 12:58-0400 Body weight 81.51 kg Yudi Méndez ODD B[employer]DLE WORKER-C Work Phone: [facility] 03-19-2025 12:54-0400 Body height 170.18 cm Yudi Méndez ODD B[employer]DLE WORKER-C Work Phone: [facility] 03-19-2025 12:49-0400 Body mass index (BMI) [Ratio] 28.6 kg/m2 Yudi Aris ODD B[employer]DLE WORKER-C Work Phone: [facility] 03-19-2025 12:49-0400 Body weight 83 kg Yudi Aris ODD B[employer]DLE WORKER-C Work Phone: [facility] 03-19-2025 12:49-0400 Diastolic blood pressure 67 mm[Hg] Yudi Aris ODD BUNDLE WORKER-C Work Phone: [facility] 03-19-2025 12:49-0400 Systolic blood pressure 104 mm[Hg] Yudi Aris ODD BUNDLE WORKER-C Work Phone: 8(131)721-263186 [place] [address] 03-07-2025 16:14-0400 Body height 170.18 cm Yudi Aris ODD BUNDLE WORKER-C Work Phone: 1(619)060-772486 [place] [address] 03-07-2025 16:11-0400 Body mass index (BMI) [Ratio] 28.5 kg/m2 Yudi Aris ODD BUNDLE WORKER-C Work Phone: [facility] 03-07-2025 16:11-0400 Body weight 82.61 kg Yudi Aris ODD BUNDLE WORKER-C Work Phone: [facility] 03-07-2025 16:11-0400 Diastolic blood pressure 73 mm[Hg] Yudi Aris ODD BUNDLE WORKER-C Work Phone: [facility] 03-07-2025 16:11-0400 Systolic blood pressure 115 mm[Hg] Yudi Aris ODD BUNDLE WORKER-C Work Phone: [facility] 02-19-2025 11:35-0400 Body height 170.18 cm Yudi Aris ODD BUNDLE WORKER-C Work Phone: [facility] 02-19-2025 11:31-0400 Body mass index (BMI) [Ratio] 27.8 kg/m2 Yudi Méndez ODD BUNDLE WORKER-C Work Phone: [facility] 02-19-2025 11:31-0400 Body weight 80.73 kg Yudi Méndez ODD BUNDLE WORKER-C Work Phone: 5(557)065-765183 [place] [address] 02-19-2025 11:31-0400 Diastolic blood pressure 71 mm[Hg] Yudi Aris ODD BUNDLE WORKER-C Work Phone: 5(997)598-302083 [place] [address] 02-19-2025 11:31-0400 Systolic blood pressure 111 mm[Hg] Yudi Aris ODD BUNDLE WORKER-C Work Phone: 7(396)959-122483 [place] [address] 01-29-2025 15:15-0400 Body height 170.18 cm Yudi Méndez ODD BUNDLE WORKER-C Work Phone: 3(057)533-95[address] [place] [address] 01-29-2025 15:12-0400 Body mass index (BMI) [Ratio] 27.2 kg/m2 Yudi Aris ODD BUNDLE WORKER-C Work Phone: 8(906)081-614[address] [place] [address] 01-29-2025 15:12-0400 Body weight 78.92 kg Yudi Aris ODD BUNDLE WORKER-C Work Phone: 6(247)505-056700 [place] [address] 01-29-2025 15:12-0400 Diastolic blood pressure 69 mm[Hg] Yudi Aris ODD BUNDLE WORKER-C Work Phone: 8(541)603-968700 [place] [address] 01-29-2025 15:12-0400 Systolic blood pressure 118 mm[Hg] Yudi Méndez ODD BUNDLE WORKER-C Work Phone: 5(301)527-747600 [place] [address] 01-01-2025 11:30-0400 Body height 170.18 cm Yudi Aris ODD BUNDLE WORKER-C Work Phone: 2(630)251-638[address] [place] [address] 01-01-2025 11:25-0400 Body mass index (BMI) [Ratio] 26.2 kg/m2 Yudi Aris ODD BUNDLE WORKER-C Work Phone: 5(884)269-806083 [place] [address] 01-01-2025 11:25-0400 Body weight 75.97 kg Yudi Méndez ODD BUNDLE WORKER-C Work Phone: 2(448)364-650883 [place] [address] 01-01-2025 11:25-0400 Diastolic blood pressure 71 mm[Hg] Yudi Méndez ODD BUNDLE WORKER-C Work Phone: [facility] 01-01-2025 11:25-0400 Systolic blood pressure 113 mm[Hg] Yudi Méndez ODD BUNDLE WORKER-C Work Phone: [facility] 11-27-2024 12:29-0400 Body mass index (BMI) [Ratio] 24.7 kg/m2 Yudi Méndez ODD BUNDLE WORKER-C Work Phone: [facility] 11-27-2024 12:29-0400 Body weight 71.72 kg Yudi Méndez ODD BUNDLE WORKER-C Work Phone: [facility] 11-27-2024 12:29-0400 Diastolic blood pressure 67 mm[Hg] Yudi Méndez ODD BUNDLE WORKER-C Work Phone: [facility] 11-27-2024 12:29-0400 Systolic blood pressure 101 mm[Hg] Yudi Méndez ODD BUNDLE WORKER-C Work Phone: [facility] 11-26-2024 14:17-0400 Body mass index (BMI) [Ratio] 25 kg/m2 Yudi Méndez ODD BUNDLE WORKER-C Work Phone: [facility] 11-26-2024 14:17-0400 Body temperature 97.2 [degF] Yudi Méndez ODD BUNDLE WORKER-C Work Phone: [facility] 11-26-2024 14:17-0400 Body weight 72.68 kg Yudi Méndez ODD BUNDLE WORKER-C Work Phone: [facility] 11-26-2024 14:17-0400 Diastolic blood pressure 79 mm[Hg] Yudi Méndez ODD BUNDLE WORKER-C Work Phone: [facility] 11-26-2024 14:17-0400 Heart rate 63 /min Yudi Méndez ODD BUNDLE WORKER-C Work Phone: [facility] 11-26-2024 14:17-0400 Respiratory rate 18 /min Yudi Méndez ODD BUNDLE WORKER-C Work Phone: [facility] 11-26-2024 14:17-0400 SaO2% (BldA) [Mass fraction] 100 % Yudi Méndez ODD BUNDLE WORKER-C Work Phone: [facility] 11-26-2024 14:17-0400 Systolic blood pressure 113 mm[Hg] Yudi Méndez ODD BUNDLE WORKER-C Work Phone: [facility] 11-01-2024 14:26-0400 Body mass index (BMI) [Ratio] 23.6 kg/m2 Yudi Méndez ODD BUNDLE WORKER-C Work Phone: [facility] 11-01-2024 14:26-0400 Body weight 68.26 kg Yudi Méndez ODD BUNDLE WORKER-C Work Phone: [facility] 11-01-2024 14:26-0400 Diastolic blood pressure 75 mm[Hg] Yudi Méndez ODD BUNDLE WORKER-C Work Phone: [facility] 11-01-2024 14:26-0400 Systolic blood pressure 114 mm[Hg] Yudi Méndez ODD BUNDLE WORKER-C Work Phone: [facility] 10-04-2024 14:30-0500 Body mass index (BMI) [Ratio] 23.8 kg/m2 Yudi Méndez ODD BUNDLE WORKER-C Work Phone: [facility] 10-04-2024 14:30-0500 Body weight 69.11 kg Yudi Méndez ODD BUNDLE WORKER-C Work Phone: [facility] 10-04-2024 14:30-0500 Diastolic blood pressure 82 mm[Hg] Yuid Méndez ODD BUNDLE WORKER-C Work Phone: [facility] 10-04-2024 14:30-0500 Systolic blood pressure 124 mm[Hg] Yudi Méndez ODD BUNDLE WORKER-C Work Phone: [facility] 03-06-2023 11:36-0400 Body height 170.18 cm ODD BUNDLE WORKER-C Yudi Méndez ODD BUNDLE WORKER Work Phone: [facility] 03-06-2023 11:35-0400 Body mass index (BMI) [Ratio] 24.3 kg/m2 ODD BUNDLE WORKER-C Yudi Méndez ODD BUNDLE WORKER Work Phone: [facility] 03-06-2023 11:35-0400 Body weight 70.53 kg ODD BUNDLE WORKER-C Yudi Méndez ODD BUNDLE WORKER Work Phone: [facility] 03-06-2023 11:35-0400 Diastolic blood pressure 79 mm[Hg] ODD BUNDLE WORKER-C Yudi Méndez ODD BUNDLE WORKER Work Phone: [facility] 03-06-2023 11:35-0400 Systolic blood pressure 119 mm[Hg] ODD BUNDLE WORKER-C Yudi Méndez ODD BUNDLE WORKER Work Phone: [facility] 01-25-2023 08:54-0400 Body temperature 98.7 [degF] ODD BUNDLE WORKER-C Yudi Méndez ODD BUNDLE WORKER Work Phone: [facility] 01-25-2023 08:54-0400 Diastolic blood pressure 78 mm[Hg] ODD BUNDLE WORKER-C Yudi Méndez ODD BUNDLE WORKER Work Phone: [facility] 01-25-2023 08:54-0400 Heart rate 67 /min ODD BUNDLE WORKER-C Yudi Méndez ODD BUNDLE WORKER Work Phone: [facility] 01-25-2023 08:54-0400 Respiratory rate 18 /min ODD BUNDLE WORKER-C Yudi Méndez ODD BUNDLE WORKER Work Phone: [facility] 01-25-2023 08:54-0400 SaO2% (BldA) [Mass fraction] 96 % ODD BUNDLE WORKER-C Yudi Méndez ODD BUNDLE WORKER Work Phone: [facility] 01-25-2023 08:54-0400 Systolic blood pressure 123 mm[Hg] ODD BUNDLE WORKER-C Yudi Méndez ODD BUNDLE WORKER Work Phone: [facility] 01-23-2023 07:34-0400 Body height 170.18 cm ODD BUNDLE WORKER-C Yudi Méndez ODD BUNDLE WORKER Work Phone: [facility] 01-23-2023 07:34-0400 Body mass index (BMI) [Ratio] 29.4 kg/m2 ODD BUNDLE WORKER-C Yudi Méndez ODD BUNDLE WORKER Work Phone: [facility] 01-23-2023 07:34-0400 Body weight 85.27 kg ODD BUNDLE WORKER-C Yudi Méndez ODD BUNDLE WORKER Work Phone: [facility] 01-18-2023 09:11-0400 Body mass index (BMI) [Ratio] 29.7 kg/m2 ODD BUNDLE WORKER-C Yudi Aris ODD BUNDLE WORKER Work Phone: [facility] 01-18-2023 09:11-0400 Body weight 86.29 kg ODD BUNDLE WORKER-C Yudi Méndez ODD BUNDLE WORKER Work Phone: [facility] 01-18-2023 09:11-0400 Diastolic blood pressure 82 mm[Hg] ODD BUNDLE WORKER-C Yudi Méndez ODD BUNDLE WORKER Work Phone: [facility] 01-18-2023 09:11-0400 Systolic blood pressure 123 mm[Hg] ODD BUNDLE WORKER-C Yudi Méndez ODD BUNDLE WORKER Work Phone: [facility] 01-09-2023 08:35-0400 Body mass index (BMI) [Ratio] 30.4 kg/m2 ODD BUNDLE WORKER-C Yudi Méndez ODD BUNDLE WORKER Work Phone: [facility] 01-09-2023 08:35-0400 Body weight 88.11 kg ODD BUNDLE WORKER-C Yudi Méndez ODD BUNDLE WORKER Work Phone: [facility] 01-09-2023 08:35-0400 Diastolic blood pressure 83 mm[Hg] ODD BUNDLE WORKER-C Yudi Méndez ODD BUNDLE WORKER Work Phone: [facility] 01-09-2023 08:35-0400 Systolic blood pressure 123 mm[Hg] ODD BUNDLE WORKER-C Yudi Méndez ODD BUNDLE WORKER Work Phone: [facility] 01-03-2023 09:18-0400 Body mass index (BMI) [Ratio] 29.9 kg/m2 ODD BUNDLE WORKER-C Yudi Méndez ODD BUNDLE WORKER Work Phone: [facility] 01-03-2023 09:18-0400 Body weight 86.8 kg ODD BUNDLE WORKER-C Yudi Méndez ODD BUNDLE WORKER Work Phone: [facility] 01-03-2023 09:18-0400 Diastolic blood pressure 83 mm[Hg] ODD BUNDLE WORKER-C Yudi Aris ODD BUNDLE WORKER Work Phone: [facility] 01-03-2023 09:18-0400 Systolic blood pressure 131 mm[Hg] ODD BUNDLE WORKER-C Yudi Aris ODD BUNDLE WORKER Work Phone: [facility] 12-28-2022 14:34-0400 Body mass index (BMI) [Ratio] 29.7 kg/m2 ODD BUNDLE WORKER-C Yudi Méndez ODD BUNDLE WORKER Work Phone: [facility] 12-28-2022 14:34-0400 Body weight 86.18 kg ODD BUNDLE WORKER-C Yudi Aris ODD BUNDLE WORKER Work Phone: [facility] 12-28-2022 14:34-0400 Diastolic blood pressure 82 mm[Hg] ODD BUNDLE WORKER-C Yudi Méndez ODD BUNDLE WORKER Work Phone: [facility] 12-28-2022 14:34-0400 Systolic blood pressure 126 mm[Hg] ODD BUNDLE WORKER-C Yudi Méndez ODD BUNDLE WORKER Work Phone: [facility] 12-20-2022 13:39-0400 Body height 170.18 cm ODD BUNDLE WORKER-C Yudi Méndez ODD BUNDLE WORKER Work Phone: [facility] 12-20-2022 13:39-0400 Body mass index (BMI) [Ratio] 30.2 kg/m2 ODD BUNDLE WORKER-C Yudi Aris ODD BUNDLE WORKER Work Phone: [facility] 12-20-2022 13:39-0400 Body weight 87.6 kg ODD BUNDLE WORKER-C Yudi Méndez ODD BUNDLE WORKER Work Phone: [facility] 12-20-2022 13:39-0400 Diastolic blood pressure 80 mm[Hg] ODD BUNDLE WORKER-C Yudi Aris ODD BUNDLE WORKER Work Phone: [facility] 12-20-2022 13:39-0400 Systolic blood pressure 120 mm[Hg] ODD BUNDLE WORKER-C Yudi Aris ODD BUNDLE WORKER Work Phone: [facility] 12-07-2022 16:13-0400 Body mass index (BMI) [Ratio] 29 kg/m2 ODD BUNDLE WORKER-C Yudi Méndez ODD BUNDLE WORKER Work Phone: [facility] 12-07-2022 16:13-0400 Body weight 84.14 kg ODD BUNDLE WORKER-C Yudi Méndez ODD BUNDLE WORKER Work Phone: [facility] 12-07-2022 16:13-0400 Diastolic blood pressure 78 mm[Hg] ODD BUNDLE WORKER-C Yudi Méndez ODD BUNDLE WORKER Work Phone: [facility] 12-07-2022 16:13-0400 Systolic blood pressure 121 mm[Hg] ODD BUNDLE WORKER-C Yudi Méndez ODD BUNDLE WORKER Work Phone: [facility] 11-22-2022 15:13-0400 Body height 170.18 cm ODD BUNDLE WORKER-C Yudi Méndez ODD BUNDLE WORKER Work Phone: [facility] 11-22-2022 15:11-0400 Body mass index (BMI) [Ratio] 27.9 kg/m2 ODD BUNDLE WORKER-C Yudi Méndez ODD BUNDLE WORKER Work Phone: [facility] 11-22-2022 15:11-0400 Body weight 80.85 kg ODD BUNDLE WORKER-C Yudi Méndez ODD BUNDLE WORKER Work Phone: [facility] 11-22-2022 15:11-0400 Diastolic blood pressure 77 mm[Hg] ODD BUNDLE WORKER-C Yudi Méndez ODD BUNDLE WORKER Work Phone: [facility] 11-22-2022 15:11-0400 Systolic blood pressure 121 mm[Hg] ODD BUNDLE WORKER-C Yudi Méndez ODD BUNDLE WORKER Work Phone: [facility] 11-09-2022 14:42-0400 Body mass index (BMI) [Ratio] 27.7 kg/m2 ODD BUNDLE WORKER-C Yudi Méndez ODD BUNDLE WORKER Work Phone: [facility] 11-09-2022 14:42-0400 Body weight 80.39 kg ODD BUNDLE WORKER-C Yudi Méndez ODD BUNDLE WORKER Work Phone: [facility] 11-09-2022 14:42-0400 Diastolic blood pressure 77 mm[Hg] ODD BUNDLE WORKER-C Yudi Méndez ODD BUNDLE WORKER Work Phone: [facility] 11-09-2022 14:42-0400 Systolic blood pressure 117 mm[Hg] ODD BUNDLE WORKER-C Yudi Méndez ODD BUNDLE WORKER Work Phone: [facility] 10-27-2022 09:07-0500 Body height 170.18 cm ODD BUNDLE WORKER-C Yudi Méndez ODD BUNDLE WORKER Work Phone: [facility] 10-27-2022 09:00-0500 Body mass index (BMI) [Ratio] 27.1 kg/m2 ODD BUNDLE WORKER-C Yudi Méndez ODD BUNDLE WORKER Work Phone: [facility] 10-27-2022 09:00-0500 Body weight 78.58 kg ODD BUNDLE WORKER-C Yudi Méndez ODD BUNDLE WORKER Work Phone: [facility] 10-27-2022 09:00-0500 Diastolic blood pressure 70 mm[Hg] ODD BUNDLE WORKER-C Yudi Méndez ODD BUNDLE WORKER Work Phone: [facility] 10-27-2022 09:00-0500 Systolic blood pressure 102 mm[Hg] ODD BUNDLE WORKER-C Yudi Méndez ODD BUNDLE WORKER Work Phone: [facility] 10-03-2022 14:06-0500 Body mass index (BMI) [Ratio] 26.9 kg/m2 ODD BUNDLE WORKER-C Yudi Méndez ODD BUNDLE WORKER Work Phone: [facility] 10-03-2022 14:06-0500 Body weight 78.18 kg ODD BUNDLE WORKER-C Yudi Méndez ODD BUNDLE WORKER Work Phone: [facility] 10-03-2022 14:06-0500 Diastolic blood pressure 80 mm[Hg] ODD BUNDLE WORKER-C Yudi Méndez ODD BUNDLE WORKER Work Phone: [facility] 10-03-2022 14:06-0500 Systolic blood pressure 124 mm[Hg] ODD BUNDLE WORKER-C Yudi Méndez ODD BUNDLE WORKER Work Phone: [facility] 09-05-2022 09:54-0500 Body mass index (BMI) [Ratio] 25.6 kg/m2 ODD BUNDLE WORKER-C Yudi Méndez ODD BUNDLE WORKER Work Phone: [facility] 09-05-2022 09:54-0500 Body weight 74.16 kg ODD BUNDLE WORKER-C Yudi Méndez ODD BUNDLE WORKER Work Phone: [facility] 09-05-2022 09:54-0500 Diastolic blood pressure 68 mm[Hg] ODD BUNDLE WORKER-C Yudi Méndez ODD BUNDLE WORKER Work Phone: [facility] 09-05-2022 09:54-0500 Systolic blood pressure 110 mm[Hg] ODD BUNDLE WORKER-C Yudi Méndez ODD BUNDLE WORKER Work Phone: [facility] 08-03-2022 14:36-0500 Body mass index (BMI) [Ratio] 25.2 kg/m2 ODD BUNDLE WORKER-C Yudi Méndez ODD BUNDLE WORKER Work Phone: [facility] 08-03-2022 14:36-0500 Body weight 73.02 kg ODD BUNDLE WORKER-C Yudi Méndez ODD BUNDLE WORKER Work Phone: [facility] 08-03-2022 14:36-0500 Diastolic blood pressure 74 mm[Hg] ODD BUNDLE WORKER-C Yudi Méndez ODD BUNDLE WORKER Work Phone: [facility] 08-03-2022 14:36-0500 Systolic blood pressure 116 mm[Hg] ODD BUNDLE WORKER-C Yudi Méndez ODD BUNDLE WORKER Work Phone: [facility] 07-04-2022 14:12-0500 Body height 170.18 cm ODD BUNDLE WORKER-C Yudi Méndez ODD BUNDLE WORKER Work Phone: [facility] Work Phone: 07-04-2022 14:11-0500 Body mass index (BMI) [Ratio] 25 kg/m2 ODD BUNDLE WORKER-C Yudi Méndez ODD BUNDLE WORKER Work Phone: [facility] Work Phone: 07-04-2022 14:11-0500 Body weight 72.29 kg ODD BUNDLE WORKER-C Yudi Méndez ODD BUNDLE WORKER Work Phone: [facility] Work Phone: 07-04-2022 14:11-0500 Diastolic blood pressure 72 mm[Hg] ODD BUNDLE WORKER-C Yudi Méndez ODD BUNDLE WORKER Work Phone: [facility] Work Phone: 07-04-2022 14:11-0500 Systolic blood pressure 114 mm[Hg] ODD BUNDLE WORKER-C Yudi Méndez ODD BUNDLE WORKER Work Phone: [facility] Work Phone: 06-08-2022 09:45-0400 Body height 170.18 cm ODD BUNDLE WORKER-C Yudi Méndez ODD BUNDLE WORKER Work Phone: [facility] Work Phone: 06-08-2022 09:45-0400 Body mass index (BMI) [Ratio] 23.6 kg/m2 ODD BUNDLE WORKER-C Yudi Méndez ODD BUNDLE WORKER Work Phone: [facility] Work Phone: 06-08-2022 09:45-0400 Body weight 68.49 kg ODD BUNDLE WORKER-C Yudi Méndez ODD BUNDLE WORKER Work Phone: [facility] Work Phone: 06-08-2022 09:45-0400 Diastolic blood pressure 79 mm[Hg] ODD BUNDLE WORKER-C Yudi Méndez ODD BUNDLE WORKER Work Phone: [facility] Work Phone: 06-08-2022 09:45-0400 Systolic blood pressure 123 mm[Hg] ODD BUNDLE WORKER-C Yudi Méndez ODD BUNDLE WORKER Work Phone: [facility] Work Phone: 03-30-2022 15:45-0400 Body mass index (BMI) [Ratio] 23.5 kg/m2 ODD BUNDLE WORKER-C Yudi Méndez ODD BUNDLE WORKER Work Phone: [facility] Work Phone: 03-30-2022 15:45-0400 Body temperature 98.4 [degF] ODD BUNDLE WORKER-C Yudi Méndez ODD BUNDLE WORKER Work Phone: [facility] Work Phone: 03-30-2022 15:45-0400 Body weight 68.03 kg ODD BUNDLE WORKER-C Yudi Méndez ODD BUNDLE WORKER Work Phone: [facility] Work Phone: 03-30-2022 15:45-0400 Diastolic blood pressure 66 mm[Hg] ODD BUNDLE WORKER-C Yudi Méndez ODD BUNDLE WORKER Work Phone: [facility] Work Phone: 03-30-2022 15:45-0400 Heart rate 82 /min ODD BUNDLE WORKER-C Yudi Méndez ODD BUNDLE WORKER Work Phone: [facility] Work Phone: 03-30-2022 15:45-0400 Respiratory rate 16 /min ODD BUNDLE WORKER-C Yudi Méndez ODD BUNDLE WORKER Work Phone: [facility] Work Phone: 03-30-2022 15:45-0400 SaO2% (BldA) [Mass fraction] 99 % ODD BUNDLE WORKER-C Yudi Méndez ODD BUNDLE WORKER Work Phone: [facility] Work Phone: 03-30-2022 15:45-0400 Systolic blood pressure 108 mm[Hg] ODD BUNDLE WORKER-C Yudi Méndez ODD BUNDLE WORKER Work Phone: [facility] Work Phone: Encounters Encounter Date Encounter Type Care Provider Facility Start: 05-14-2025 ambulatory Yudi Méndez ODD BUNDLE WORKER [place] Start: 05-07-2025 End: 05-07-[address] Nelly Gay MD -[facility] Work Phone: Start: 05-07-2025 End: 05-07-2025 ambulatory Yudi Méndez ODD BUNDLE WORKER-C Work Phone: -[facility] Start: 04-30-2025 End: 04-30-2025 Patient encounter procedure Manjula Goldman CNM -[facility] Work Phone: Start: 04-30-2025 End: 04-30-2025 ambulatory Yudi Méndez ODD BUNDLE WORKER-C Work Phone: -[facility] Start: 04-24-2025 End: 04-24-[address] Nelly Gay MD -[facility] Work Phone: Start: 04-24-2025 End: 04-24-2025 ambulatory Yudi Méndez ODD BUNDLE WORKER-C Work Phone: -[facility] Start: 04-16-2025 End: 04-16-[address] Carline Escobar DO -[facility] Work Phone: Start: 04-16-2025 End: 04-16-2025 ambulatory Yudi Méndez ODD BUNDLE WORKER-C Work Phone: -[facility] Start: 04-16-2025 End: 04-16-2025 ambulatory Yudi Méndez ODD BUNDLE WORKER Facility:[facility] Start: 03-31-2025 End: 03-31-2025 Patient encounter procedure Tania Gutiérrez ODD BUNDLE WORKER-C -[facility] Work Phone: Start: 03-31-2025 End: 03-31-2025 ambulatory Yudi Méndez ODD BUNDLE WORKER-C Work Phone: -[facility] Start: 03-23-2025 End: 03-23-2025 Emergency department patient visit Yudi Méndez ODD BUNDLE WORKER-C Work Phone: -Emergency Department Work Phone: Start: 03-19-2025 End: 03-19-2025 Patient encounter procedure Manjula Goldman CNM -[facility] @ Start: 03-19-2025 End: 03-19-2025 ambulatory Yudi Méndez ODD BUNDLE WORKER-C Work Phone: -[facility] @ Start: 03-07-2025 End: 03-07-[address] Nelly Gay MD -[facility] Work Phone: Start: 03-07-2025 End: 03-07-2025 ambulatory Yudi Méndez ODD BUNDLE WORKER-C Work Phone: -[facility] Start: 02-19-2025 End: 02-19-2025 Patient encounter procedure Manjula Goldman CNM -[facility] @ Start: 02-19-2025 End: 02-19-2025 ambulatory Yudi Méndez ODD BUNDLE WORKER-C Work Phone: -[facility] @ Start: 01-29-2025 End: 01-29-[address] Carline Escobar DO -[facility] Work Phone: Start: 01-29-2025 End: 01-29-2025 ambulatory Yudi Méndez ODD BUNDLE WORKER-C Work Phone: [facility] Work Phone: Start: 01-29-2025 End: 01-29-2025 ambulatory Nelly [facility] Facility:[facility] Start: 01-01-2025 End: 01-01-2025 Patient encounter procedure Manjula SCHNEIDER -[facility] @ Start: 01-01-2025 End: 01-01-2025 ambulatory Yudi Méndez NP-C Work Phone: [facility] Work Phone: Start: 12-17-2024 End: 12-17-2024 ambulatory YUDI Rice [facility] Start: 11-27-2024 End: 11-27-2024 Patient encounter procedure Manjula Goldman CNM -[facility] @ Start: 11-27-2024 End: 11-27-2024 ambulatory Yudi Méndez NP [place] Start: 11-26-2024 End: 11-26-[address] Ravinder Suazo MD -Laboratory, Specimen Work Phone: Start: 11-26-2024 End: 11-26-[address] Ravinder Suazo MD -[facility] Work Phone: Start: 11-26-2024 End: 11-26-2024 ambulatory Ravinder Suazo [facility] Start: 11-26-2024 End: 11-26-2024 ambulatory Ravinder Suazo Facility:[facility] Start: 11-01-2024 End: 11-01-[address] Carline Escobar DO -[facility] Work Phone: Start: 11-01-2024 End: 11-01-2024 ambulatory Yudi Méndez ODD BUNDLE WORKER Facility[place] Start: 10-11-2024 End: 10-11-2024 ambulatory YUDI MÉNDEZ Kit Castaneda [facility] Start: 10-04-2024 End: 10-04-2024 Patient encounter procedure Manjula Goldman [facility] -[facility] Work Phone: Start: 10-04-2024 End: 10-04-2024 ambulatory Yudi Méndez ODD BUNDLE WORKER [place] Start: 10-04-2024 End: 10-04-2024 ambulatory Yudi Méndez ODD BUNDLE WORKER Facility:[facility] Start: 06-29-2023 End: 06-29-2023 ambulatory ODD BUNDLE WORKER-C Yudi Méndez ODD BUNDLE WORKER Work Phone: [facility] Work Phone: Start: 06-29-2023 End: 06-29-2023 Patient encounter procedure ODD BUNDLE WORKER-C Yudi Méndez ODD BUNDLE WORKER Work Phone: [facility] Work Phone: Start: 03-06-2023 End: 03-06-2023 Patient encounter procedure ODD BUNDLE WORKER-C Yudi Méndez ODD BUNDLE WORKER Work Phone: [facility] Work Phone: Start: 01-25-2023 Non-patient / Non-visit ODD BUNDLE WORKER-C Yudi Méndez ODD BUNDLE WORKER Work Phone: [facility] Start: 01-24-2023 Non-patient / Non-visit O[employer] B[employer]LE WORKER-C Yudi Méndez ODD BUNDLE WORKER Work Phone: [facility] Start: 01-23-2023 Non-patient / Non-visit O[employer] B[employer]LE WORKER-C Yudi Méndez ODD BUNDLE WORKER Work Phone: [facility] Start: 01-23-2023 End: 01-25-2023 Evaluation and management of inpatient O[employer] B[employer] WORKER-C Yudi Méndez ODD BUNDLE WORKER Work Phone: [facility] Start: 01-18-2023 End: 01-18-2023 Patient encounter procedure ODD B[employer]DLE WORKER-C Yudi Méndez ODD BUNDLE WORKER Work Phone: [facility] Start: 01-09-2023 End: 01-09-2023 Patient encounter procedure ODD B[employer]DLE WORKER-C Yudi Méndez ODD BUNDLE WORKER Work Phone: [facility] Start: 01-03-2023 End: 01-03-2023 Patient encounter procedure ODD B[employer]DLE WORKER-C Yudi Méndez ODD BUNDLE WORKER Work Phone: [facility] Start: 12-28-2022 End: 12-28-2022 Patient encounter procedure ODD B[employer]DLE WORKER-C Yudi Méndez ODD BUNDLE WORKER Work Phone: [facility] Start: 12-20-2022 End: 12-20-2022 ambulatory ODD B[employer]DLE WORKER-C Yudi Méndez ODD BUNDLE WORKER Work Phone: [facility] Work Phone: Start: 12-20-2022 End: 12-20-2022 Patient encounter procedure ODD BUNDLE WORKER-C Yudi Méndez ODD BUNDLE WORKER Work Phone: [facility] Start: 12-07-2022 End: 12-07-2022 Patient encounter procedure ODD BUNDLE WORKER-C Yudi Méndez ODD BUNDLE WORKER Work Phone: [facility] Start: 11-22-2022 End: 11-22-2022 ambulatory ODD B[employer]DLE WORKER-C Yudi Méndez ODD BUNDLE WORKER Work Phone: [facility] Work Phone: Start: 11-22-2022 End: 11-22-2022 Patient encounter procedure ODD B[employer]DLE WORKER-C Yudi Méndez ODD BUNDLE WORKER Work Phone: [facility] Start: 11-09-2022 End: 11-09-2022 Patient encounter procedure ODD BUNDLE WORKER-C Yudi Méndez ODD BUNDLE WORKER Work Phone: [facility] Start: 10-31-2022 End: 10-31-2022 ambulatory ODD B[employer]DLE WORKER-C Yudi Méndez ODD BUNDLE WORKER Work Phone: [facility] Work Phone: Start: 10-31-2022 End: 10-31-2022 Patient encounter procedure ODD BUNDLE WORKER-C Yudi Méndez ODD BUNDLE WORKER Work Phone: [facility] Start: 10-27-2022 End: 10-27-2022 ambulatory ODD BUNDLE WORKER-C Yudi Méndez ODD BUNDLE WORKER Work Phone: [facility] Work Phone: Start: 10-27-2022 End: 10-27-2022 Patient encounter procedure ODD BUNDLE WORKER-C Yudi Méndez ODD BUNDLE WORKER Work Phone: [facility] Start: 10-03-2022 End: 10-03-2022 Patient encounter procedure ODD BUNDLE WORKER-C Yudi Méndez ODD BUNDLE WORKER Work Phone: [facility] Start: 09-05-2022 End: 09-05-2022 Patient encounter procedure ODD BUNDLE WORKER-C Yudi Méndez ODD BUNDLE WORKER Work Phone: [facility] Start: 08-03-2022 End: 08-03-2022 Patient encounter procedure ODD BUNDLE WORKER-C Yudi Méndez ODD BUNDLE WORKER Work Phone: [facility] Start: 07-04-2022 End: 07-04-2022 ambulatory ODD BUNDLE WORKER-C Yudi Méndez ODD BUNDLE WORKER Work Phone: [facility] Work Phone: Start: 07-04-2022 End: 07-04-2022 Patient encounter procedure ODD BUNDLE WORKER-C Yudi Méndez ODD BUNDLE WORKER Work Phone: [facility] Start: 06-08-2022 End: 06-08-2022 ambulatory ODD BUNDLE WORKER-C Yudi Méndez ODD BUNDLE WORKER Work Phone: [facility] Work Phone: Start: 06-08-2022 End: 06-08-2022 Patient encounter procedure ODD BUNDLE WORKER-C Yudi Méndez ODD BUNDLE WORKER Work Phone: [facility] Specimen Start: 06-08-2022 End: 06-08-2022 Patient encounter procedure ODD BUNDLE WORKER-C Yudi Méndez ODD BUNDLE WORKER Work Phone: [facility] Start: 03-30-2022 End: 03-30-2022 Patient encounter procedure ODD BUNDLE WORKER-C Yudi Méndez ODD BUNDLE WORKER Work Phone: [facility] Procedures Date Procedure Procedure Detail Performing Clinician Start: 04-16-2025 Beta-hemolytic Strep tococcus culture Yudi Méndez ODD BUNDLE WORKER-C Work Phone: Start: 01-29-2025 Lead measurement Yudi Méndez ODD BUNDLE WORKER-C Work Phone: Comment on above: Testing performed by Inductively coupled plasma/MassSpectrometry.Analysis by inductively coupled plasma/massspectrometry (ICP/MS) Environmental Exposure: WHO Recommendation <5.0 Occupational Exposure: OSHA Lead Std 40.0 JAMAR 30.0 Detection Limit = 1.0Performed at: [facility] [address] [id number] Director: Guzman Darnell PhD, Phone: [phone] Start: 01-29-2025 Serologic test for syphilis Yudi Méndez ODD BUNDLE WORKER-C Work Phone: Start: 10-04-2024 Liquid based cervica l cytology screening Yudi Méndez ODD BUNDLE WORKER-C Work Phone: Comment on above: NEGATIVE FOR INTRAEP ITHELIAL LESION OR MALIGNANCY. This liquid based Th inPrep(R) pap test was screened withthe use of an image guided system. The HPV DNA reflex c adriana were not met with this specimenresult therefore, no HPV testing was performed.Performed at: [facility] [id number] Director: Chayo Yi MD, Phone: [phone] Start: 10-04-2024 Hepatitis B surface antigen measurement Yudi Méndez ODD BUNDLE WORKER-C Work Phone: Start: 10-04-2024 Hepatitis C antibody measurement Yudi Méndez ODD BUNDLE WORKER-C Work Phone: Comment on above: Non Reactive: < 0.8 Equivocal: >/= 0.8 to < 1.0 Reactive: >/= 1.0The [facility] requires that a reactive/equivocal HCV antibody result be sent out for confirmation. HCV Quant by PCR testing. Start: 10-04-2024 Rubella IgG measurement Yudi Méndez ODD BUNDLE WORKER-C Work Phone: Comment on above: Antibody Results Int erpretation of Immune Status Non Reactive Presumed Non-Immune Equivocal Equivocal Reactive Presumed Immune Start: 10-04-2024 Urine culture Yudi Robert is ODD BUNDLE WORKER-C Work Phone: Start: 12-20-2022 Ultrasound scan for growth ODD BUNDLE WORKER-C Yudi Méndez ODD BUNDLE WORKER Work Phone: [facility] Streptococcu s Culture ODD BUNDLE WORKER-C Yudi Méndez ODD BUNDLE WORKER Work Phone: Urine culture ODD BUNDLE WORKER-C Yudi Robert is ODD BUNDLE WORKER Work Phone: Plan of Treatment Date Care Activity Detail Author Start: 03-23-2025 [facility] Start: 01-29-2025 CBC W Auto Different ial panel - Blood [facility] Start: 01-29-2025 Measurement of gluco se 2 hours after glucose challenge for glucose tolerance test [facility] Start: 01-29-2025 Serologic test for syphilis [facility] Start: 01-29-2025 T4 free measurement [facility] Start: 01-29-2025 Thyroid stimulating hormone measurement [facility] Start: 01-29-2025 [facility] Start: 01-25-[address] [facility] Start: 01-23-2023 Administration of medication [facility] Start: 01-23-2023 Application of ice c ollar, cap or bag [facility] Start: 01-23-2023 Catheterization of vein [facility] Start: 01-23-2023 Introduction of urinary catheter [facility] Start: 01-23-2023 Measuring intake and output [facility] Start: 01-23-2023 Notification of physician [facility] Start: 01-23-2023 Procedure discontinued [facility] Start: 01-23-2023 Provision of activity privileges [facility] Start: 01-23-2023 Vital signs measurements [facility] Start: 01-23-2023 [facility] Start: 01-23-2023 Admission procedure [facility] CBC W Auto Different ial panel - Blood [facility] Work Phone: CBC W Auto Different ial panel - Blood [facility] Erythrocyte mean cor puscular volume determination [facility] Hematocrit [Volume F raction] of Blood [facility] Hemoglobin [Mass/volume] in Blood [facility] Hepatitis B surface antigen measurement [facility] Work Phone: Hepatitis C antibody measurement [facility] Work Phone: HIV 1+2 Ab+HIV1 p24 Ag [Presence] in Serum or Plasma by Immunoassay [facility] Work Phone: Lead measurement, qu antitative, blood [facility] Leukocytes [#/volume] in Blood [facility] Mean corpuscular hem oglobin concentration determination [facility] Mean corpuscular hem oglobin determination [facility] Measurement of gluco se 2 hours after glucose challenge for glucose tolerance test [facility] bilirubin p soham [Mass/volume] - Serum or Plasma [facility] ital Work Phone: Neutrophil count [facility] Neutrophil percent d ifferential count [facility] Patient Education [facility] Work Phone: Patient referral [facility] Work Phone: Platelets [#/volume] in Blood [facility] Red blood cell count [facility] Red cell distributio n width determination [facility] Rubella IgG measurement [facility] Work Phone: Serologic test for syphilis [facility] Streptococcus agalac tiae [Presence] in Unspecified specimen by Organism specific culture [facility] T4 free measurement [facility] Thyroid stimulating hormone measurement [facility] Treponema sp Ab [Pre sence] in Serum [facility] Work Phone: Ultrasound scan for growth [facility] Immunizations Immunization Date Immunization Notes Care Provider Anant mejia 02-19-2025 tetanus toxoid, redu shelia diphtheria toxoid, and acellular pertussis vaccine, adsorbed Yudi Méndez ODD BUNDLE WORKER-C Work Phone: [facility] 10-27-2022 tetanus toxoid, redu shelia diphtheria toxoid, and acellular pertussis vaccine, adsorbed ODD BUNDLE WORKER-C Yudi Méndez ODD BUNDLE WORKER Work Phone: [facility] Payers Date Payer Category Payer Self-pay 2024 Unknown [id number] 1995 Unknown [id number] 1995 Unknown [id number] Unknown [id number] Unknown [employer] [id number] Unknown [id number] 2.16.8 [id number] Unknown [id number] .[id number] 40.1.100958.3.579.2.462 Unknown [id number] 2.16.8 40.1.568091.3.579.2.462 Unknown [id number] 2.16.8 40.1.122993.3.579.2.462 Unknown [id number] 2.16.8 40.1.458848.3.579.2.462 Unknown [id number] 2.16.8 40.1.534493.3.579.2.462 Unknown [id number] 2.16.8 40.1.386531.3.579.2.462 Unknown [id number] 2.16.8 40.1.714099.3.579.2.462 Unknown [id number] 2.16.8 40.1.107291.3.579.2.462 Unknown [id number] 2.16.8 40.1.543133.3.579.2.462 Unknown [id number] 2.16.8 40.1.965116.3.579.2.462 Unknown [id number] 2.16.8 40.1.819078.3.579.2.462 Unknown [id number] 2.16.8 40.1.923188.3.579.2.462 Unknown [id number] 2.16.8 40.1.895042.3.579.2.462 Unknown [id number] 2.16.8 40.1.691893.3.579.2.462 Unknown [id number] 2.16.8 40.1.362330.3.579.2.462 Unknown [id number] 2.16.8 40.1.655439.3.579.2.462 Unknown [id number] 2.16.8 40.1.633537.3.579.2.462 Unknown [id number] 2.16.8 40.1.071899.3.579.2.462 Unknown [id number] 2.16.8 40.1.232020.3.579.2.462 Social History Date Type Detail Facility Start: 06-08-2022 End: 03-06-2023 Tobacco smoking status NHIS Unknown if ever smoked [facility] Start: 1995 Sex Assigned At Female [facility] Start: 09-20-2024 End: 03-23-2025 Tobacco smoking status NHIS Never smoked tobacco (finding) [facility] Sex Female [facility] Goals Date Patient Goal Desired Activity /State Clinical Notes 06-08-2022 to 05-07-2025 Note Date & Type Note Facility 05-07-2025 Progress note [facility] 05-07-2025 Progress note Note Date/Time May 07, 2025 4:08pm [facility] [address], [address] [place] [address] OFFICE VISIT Date of Service: 05/07/25 MR#: [id number] Acct: [id number] Name: JIMMY ATWOOD Rep #: [id number] : 1995 Provider: Dr. 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 Date Name GA/Weeks Outcome Route Bth Weight Infant Gen Labor Lgth Anesthesia Del Locatn Provider FOB 01/23/23 Cm 41 live - full term 9#1oz Male epid ural [facility] HPI 39wk ob Details: JIMMY ATWOOD is [...] Declines NIPT. would like some appts in [facility]. 11/01/24 -?-?-?-?-?-?-?-?-?-?-?-?- 12w 2d 150 lb 8 [...] POC Urinalysis 2 Dip (Clinic) Today 05/07/25 4096 <Electronically signed by Nelly del rio MD> Date _ Nelly Kumar Signature: Date (if applicable) CC: ~ [facility] Work Phone: 1(873) 528-786309-10-2025 [facility] [address] [place] [address], [address] [place] [address] OFFICE VISIT Date of Service: 04/30/25 MR#: [id number] Acct: [id number] Name: JIMMY ATWOOD Rep #: [id number] : 1995 Provider: QUITA Goldman Age/Sex: 30/F [place] [facility] Status: Signed Intake Vital Signs 03/31/25 15:44 04/24/25 13:50 04/30/25 15:00 Height 5 ft 7 in 5 ft 7 in 5 ft 7 in Weight: 189 lb BMI 29.6 BP 118/72 Intake Visit Reasons: 38wk ob Chief Complaint: 38wk OB Stamping Mill Tender Required: No Is patient in pain?: No [...] 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 Date Name GA/Weeks Outcome Route Bth Weight Gen Labor Lgth Ane sthesia Del Locatn Provider FOB 01/23/23 Cm 41 live - full term 9#1oz Male epid ural [facility] Payal [facility] HPI 38wk ob Details: JIMMY ATWOOD is [...] Declines NIPT. would like some appts in [facility]. 11/01/24 -?-?-?-?-?-?-?-?-?-?-?-?- 12w 2d 150 lb 8 [...] Cosigner Signature: Date (if applicable) CC: ~ [facility]09-10-2025 Progress note Author Manjula Goldman [facility] Note Date/Time April 30, 2025 3:12pm 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 Date Name GA/Weeks Outcome Route Bth Weight Infant Gen Labor Lgth Ane sthesia Del Locatn Provider FOB 01/23/23 Cm 41 live - full term 9#1oz Male epid ural [facility] HPI 38wk ob Details: JIMMY ATWOOD is [...] Declines NIPT. would like some appts in [facility]. 11/01/24 -?-?-?-?-?-?-?-?-?-?-?-?- 12w 2d 150 lb 8 [...] this visit. GA appropriate handout given. 04/30/25 2016 <Electronically signed by Manjula waters CNM> Date _ Manjula Goldman CNM Cosigner Signature: Date (if applicable) CC: ~ [facility] Work Phone: 1(117) 435-248009-04-2025 [facility] [address], [place] [id number] OFFICE VISIT Date of Service: 04/24/25 MR#: [id number] Acct: [id number] Name: JIMMY ATWOOD Rep #: [id number] : 1995 Provider: Dr. 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 would like some appts in [facility]. 11/01/24 -?-?-?-?-?-?-?-?-?-?-?-?- 12w 2d 150 lb 8 [...] of Preeclampsia, Labor Signs, InfantFeeding No , [place] Education and Family Medical Leave or Disability [...] Cosigner Signature: Date (if applicable) CC: ~ [facility]09-04-2025 Progress note Author Nelly Gay [place] [facility] Note Date/Time April 24, 2025 2:21pm [facility] [address] [place] [address], [address] [place] [address] OFFICE VISIT Date of Service: 04/24/25 MR#: [id number] Acct: [id number] Name: JIMMY ATWOOD Rep #: [id number] : 1995 Provider: Dr. 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 Date Name GA/Weeks Outcome Route Bth Weight Gen Labor Lgth Anesthesia Del Locatn Provider FOB 01/23/23 Cm 41 live - full term 9#1oz Male epid ural [facility] Payal Willard HPI 37wk ob Details: JIMMY [...] Declines NIPT. would like some appts in [facility]. 11/01/24 -?-?-?-?-?-?-?-?-?-?-?-?- 12w 2d 150 lb 8 [...] of Preeclampsia, Labor Signs, Feeding No , [place] Education and Family Medical Leave or Disability [...] Kumar Signature: Date (if applicable) CC: ~ [facility] Work Phone: 1(900) 476-546308-27-2025 [facility] [address], [address] [place] [address] OFFICE VISIT Date of Service: 04/16/25 MR#: [id number] Acct: [id number] Name: JIMMY ATWOOD Rep #: [id number] : 1995 Provider: Dr. 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 Date Name GA/Weeks Outcome Route Bth Weight Gen Labor Lgth Anesthesia Del Locatn Provider FOB 01/23/23 Cm 41 live - full term 9#1oz Male epid ural [facility] Payal Hutchins [place] HPI 36wk ob Details: [...] Declines NIPT. would like some appts in [facility]. 11/01/24 -?-?-?-?-?-?-?-?-?-?-?-?- 12w 2d 150 lb 8 [...] Cosigner Signature: Date (if applicable) CC: ~ [facility]08-27-2025 Progress note Author Carline Bolden [place] [facility] Note Date/Time April 16, 2025 3: 44pm [facility] [address], [address] [place] [address] OFFICE VISIT Date of Service: 04/16/25 MR#: [id number] Acct: [id number] Name: ADANJIMMY Moody Rep #: [id number] : 1995 Provider: Dr. 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 Date Name GA/Weeks Outcome Route Bth Weight Gen Labor Lgth Anesthesia Del Locatn Provider FOB 01/23/23 Cm 41 live - full term 9#1oz Male epid ural [facility] Payal Willard HPI 36wk ob Details: JIMMY [...] Declines NIPT. would like some appts in [place]. 11/01/24 -?-?-?-?-?-?-?-?-?-?-?-?- 12w 2d 150 lb [...] lof go od fm no reuglar ctx [facility] signed 03/19/25 -?-?-?-?-?-?-?-?-?-?-?-?- 32w 0d 183 lb [...] of Preeclampsia, Labor Signs, Feeding No , [place] Education and Family Medical Leave or Disability [...] of other normal , third trimester 04/16/25 1541 <Electronically signed by Carline Sharif DO> Date _ Carline Escobar DO Cosigner Signature: Date (if applicable) CC: ~ [facility] Work Phone: 1(315) 262-448507-30-2025 [facility] [address] [place] [address], [address] [place] [address] OFFICE VISIT Date of Service: 03/19/25 MR#: [id number] Acct: [id number] Name: JIMMY ATWOOD Rep #: [id number] : 1995 Provider: QUITA Goldman Age/Sex: 29/F [place] [facility] Status: Signed Intake Vital Signs 01/29/25 15:15 [...] 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 Date Name GA/Weeks Outcome Route Bth Weight Gen Labor Lgth Anesthesia Del Locatn Provider FOB 01/23/23 Cm 41 live - full term 9#1oz Male epid ural [facility] Payal Hutchins [place] HPI 32 wk ob Details: JIMMY ATWOOD [...] Declines NIPT. would like some appts in [facility]. 11/01/24 -?-?-?-?-?-?-?-?-?-?-?-?- 12w 2d 150 lb 8 [...] of Preeclampsia, Labor Signs, InfantFeeding No , [place] Education and Family Medical Leave or Disability [...] s QUITA> Date _ Manjula Goldman CNM [facility] Signature: Date (if applicable) CC: ~ [place] [facility] [id number] [facility] [address], [place] [address] OFFICE VISIT Date of Service: 02/19/25 MR#: [id number] Acct: [id number] Name: JIMMY ATWOOD Rep #: [id number] : 1995 Provider: QUITA Goldman Age/Sex: 29/F [place] [facility] Status: Signed with Addenda ADDENDUM by Tessa Hearn on 02/19/25 at 1154 Office Procedure Documentation entered by Tessa Hearn 02/19/25 11:54: Immunizations Boostrix Tdap 2.5 Lf unit-8 mcg-5 Lf/0.5 mL intramuscular syringe Performing Provider: Manjula Goldman CNM Performing Location: [facility] Administered by: Tessa Hearn on 02/19/25 11:52 Dose Route Admin Location Dispensed Lot Number Expiration Date NDC Retirement Actuary 0.5 mL IM Right Deltoid 0.5 mL [id number] 10/19/26 [id number] BETSY SEWELL-IDRIS VIS Given Date VIS Provided [...] 111/71 Intake Visit Reasons: 28 wk ob Stamping Mill Tender Required: No Is patient in pain?: No [...] 1 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 would like some appts in [facility]. 11/01/24 -?-?-?-?-?-?-?-?-?-?-?-?- 12w 2d 150 lb 8 [...] of Preeclampsia, Labor Signs, InfantFeeding No , [place] Education and Family Medical Leave or Disability [...] Status: Acute Comment: PRR,, PARAG 05/10/25, THU Paobn, Sudheer (6) : Status: Acute Qualifiers: Weeks [...] Cosigner Signature: Date (if applicable) CC: ~ [facility]06-11-2025 Evaluation note* Diagnosis Onset Date Resolution Status [...] Thyroid nodule acute May 07, 2025 3:23pm [facility] Work Phone: 1(689) 446-797406-11-2025 Progress [facility] [address] [place] [address], [address] [place] [address] OFFICE VISIT Date of Service: 01/29/25 MR#: [id number] Acct: [id number] Name: JIMMY ATWOOD Rep #: [id number] : 1995 Provider: Dr. 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 would like some appts in [facility]. 11/01/24 -?-?-?-?-?-?-?-?-?-?-?-?- 12w 2d 150 lb 8 [...] of Preeclampsia, Labor Signs, InfantFeeding No , [place] Education and Family Medical Leave or Disability [...] Cosigner Signature: Date (if applicable) CC: ~ [facility]06-11-2025 Progress note Author Carline Bolden [facility] Note Date/Time January 29, 2025 3:43 pm [facility] [address], [address] [place] [address] OFFICE VISIT Date of Service: 01/29/25 MR#: [id number] Acct: [id number] Name: JIMMY ATWOOD Rep #: [id number] : 1995 Provider: Dr. 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 would like some appts in [place]. 11/01/24 -?-?-?-?-?-?-?-?-?-?-?-?- 12w 2d 150 lb [...] Status: Acute Comment: PRR,, PARAG 05/10/25, PC mC, Sudheer (5) : Status: Acute Qualifiers: Weeks [...] Cosigner Signature: Date (if applicable) CC: ~ [facility] Work Phone: 1(248) 626-631605-14-2025 Evaluation note* Diagnosis Onset Date Resolution Status [...] 2025 3:41pm Thyroid nodule acute March 3:41pm [facility] Work Phone: 1([phone]) 914-811305-14-2025 Evaluation note* Diagnosis Onset Date Resolution Status [...] 2025 3:24pm Thyroid nodule acute March 3:24pm [facility] Work Phone: [phone] 217-977905-14-2025 Evaluation note* Diagnosis Onset Date Resolution Status [...] Thyroid nodule acute April 24, 2025 1:48pm [facility] Work Phone: 1(365) 800-419405-14-2025 Evaluation note* Diagnosis Onset Date Resolution Status [...] Thyroid nodule acute April 30, 2025 2:57pm [facility] Work Phone: [phone]) 577-909904-08-2025 Evaluation note* Diagnosis Onset Date Resolution Status [...] Thyroid nodule acute March 07, 2025 4:05pm [facility] Work Phone: 1([phone]) 618-257904-08-2025 Evaluation note* Diagnosis Onset Date Resolution Status [...] Thyroid nodule acute March 19, 2025 12:30pm [facility] Work Phone: [phone]) 965-436203-14-2025 Evaluation note* Diagnosis Onset Date Resolution Status [...] Thyroid nodule acute January 29, 2025 3:01pm [facility] Work Phone: 1([phone]) 666-793303-14-2025 Evaluation note* Diagnosis Onset Date Resolution Status [...] Thyroid nodule acute February 19, 2025 11:26am [facility] Work Phone: [phone]) 232-172602-14-2025 Evaluation note* Diagnosis Onset Date Resolution Status [...] Thyroid nodule acute January 01, 2025 11:22am [facility] Work Phone: [phone]) [phone] Evaluation note* Diagnosis Onset Date Resolution Status [...] Thyroid nodule acute January 29, 2025 3:01pm [facility] Work Phone: [phone]) 406-495606-07-2023 Discharge summary Author Manjula Goldman [facility] January 25, 2023 8:48am Note Date/Time January 25, 2023 8:48a m [facility] Medical Records Department [address] [place] [address] Instructions for Home/Discharge Instructions 01/25/23 0847 MR#: [id number] Acct: [id number] Name: JIMMY ATWOOD Rep #:[id number] : [...] NP Discharge Orders/Prescriptions Prescriptions: No Action PNV no.[id number]-izf-[id number]-kcwt 180 mcg-35 mg- 25 mg-5 mg tablet,chewable 1 tab PO DAILY azithromycin [Zithromax Z-Aj] 250 mg tablet 250 mg PO DAILY 6 Days Qty: 6 0RF Rx Instructions: start on day 2 of therapy ferrous sulfate [iron] 325 mg (65 mg iron) Tablet 325 mg PO DAILY Referrals / Follow Up: Yudi Méndez NP, ODD BUNDLE WORKER-C [Primary Care Provider] - Disposition Disposition (needs filled in before D/C Order can be placed): Home, Self Care 01/25/23 0848<Electronically signed by Manjula Goldman CNM>Manjula Goldman CNM CC: JUAN FC Yudi Méndez ~ Signed [facility] Work Phone: [phone]) 562-244506-07-2023 Progress note Author Manjula Goldman [facility] January 25, 2023 8:47am Note Date/Time January 25, 2023 8:47a m [facility] Medical Records Department [address] [place] [address] Progress Note - OBGYN 01/25/23 0845 MR#: [id number] Acct: [id number] Name: JIMMY ATWOOD Rep #:[id number] : 1995 27 From: Manjula Goldman CNM PCP: MANPREET Calvin Status:ADM IN Location: [id number] Subjective Subjective Patient doing well without complaints. [...] (4) Supervision of normal first : COMMENT: [id number], PARAG 01/16/23, boy Cm Spouse Sudheer Charges/Coding Multi Select Codes Urinary/Genital Urinary/Genital CPT Codes: No Charge 01/25/23 0847 <Electronically signed by Manjula Goldman CNM> Cosigner Signature (if applicable): CC: ~ Signed [facility] Work Phone: 1(699) 405-606706-06-2023 Progress note Author Manjula Goldman [facility] January 24, 2023 12:24pm Note Date/Time January 24, 2023 12:24 pm [facility] Medical Records Department [address] [place] [address] Progress Note - OBGYN 01/24/23 1222 MR#: [id number] Acct: [id number] Name: JIMMY ATWOOD Rep #:[id number] : 1995 27 From: Manjula Goldman CNM PCP: MANPREET Calvin Status:ADM IN Location: [id number] Subjective Subjective Patient doing well without complaints. [...] Cosigner Signature (if applicable): CC: ~ Signed [facility] Work Phone: 1(335) [phone] Discharge summary Author Payal Hutchins [facility] January 23, 2023 10:20pm Note Date/Time January 23, 2023 10:20 pm [facility] [address] [place] [address] Instructions for Home/Discharge Instructions 01/23/232219 MR#: [id number] Acct: [id number] Name: JIMMY ATWOOD Rep #:[id number] : 1995 27 From: Payal Hutchins CNM PCP: MANPERET Calvin Status:ADM IN Discharge Instructions Diet Discharge [...] NP Discharge Orders/Prescriptions Prescriptions: No Action PNV no.421-QY-pq4-mmm-qxb-fuxt 180 mcg-35 mg- 25 mg-5 mg tablet,chewable 1 tab PO DAILY azithromycin [Zithromax Z-Aj] 250 mg tablet 250 mg PO DAILY 6 Days Qty: 6 0RF Rx Instructions: start on day 2 of therapy ferrous sulfate [iron] 325 mg (65 mg iron) Tablet 325 mg PO DAILY Referrals / Follow Up: Yudi Méndez NP, ODD BUNDLE WORKER-C [Primary Care Provider] - Disposition Disposition (needs filled in before D/C Order can be placed): Home, Self Care 01/23/232219<Electronically signed by Payal Hutchins CNM>Payal Hutchins CNM CC: KRISTEN-C Yudi Méndez ~ Signed [facility] Work Phone: 1([phone]) [phone] [facility] 01-23-2023 History and physical note Author Payal Hutchins [facility] January 23, 2023 8:20am Note Date/Time January 23, 2023 8:20a m [facility] Medical Records Department [address] [place] [address] H&P Exam - CORPORATE CONTROLLER 01/23/23812 MR#: [id number] Acct: [id number] Name: JIMMY ATWOOD Rep #:[id number] : 1995 27 From: Payal Hutchins CNM PCP: MANPREET Calvin Status:ADM IN Location: [id number] HPI - General General Date of Admission: 01/23/23 HPI Narrative JIMMY ATWOOD, is a 27 F who presents at 41 weeks for IOL for postdates. course complicated by abnormal glucose screening with inability to tolerate 3 hour, tested glucose x2 weeks with normal glucose and fasting sugars again during 38 weeks with normal fastings. growth scan at 36 weeks qfooizprfshc84% EFW. 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 FMLA papers given to operational review sergeant. Blood sugars reviewed and discussed with JV. [...] (4) Supervision of normal first : COMMENT: [id number], PARAG 01/16/23, boy [place] Spouse Sudheer (5) [...] Cosigner Signature (if applicable): CC: QUITA Hutchins; ODD BUNDLE WORKERCarson Méndez~ Signed [facility] Work Phone: [phone]) 344-534710-19-2022 NotePap Smear Specimen AdequacyOctober 2021 11:08amComment.Satisfactory for evaluation. Endocervical and/or squamous metaplasticcells (endocervical component)are present.[employer] INTERFACED A#[id number] Hospital [facility] Work Phone: Comment on above:Satisfactory for evaluation. Endocervical and/or squamous metaplasticcells (endocervical component)are present.06-08-2022 NotePap Smear Specimen AdequacyOctober 2021 10:08am Comment.Satisfactory for evaluation. Endocervical and/or squamous metaplasticcells (endocervical component)are present.[employer] INTERFACED A#[id number] Hospital [facility] Work Phone: Comtdwq on above:Satisfactory for evaluation. Endocervical and/or squamous metaplasticcells (endocervical component)are present.Evaluation note* Diagnosis Onset Date Resolution Status Acute pharyngitis acute Contact with or suspected ex posure to other viral communicable disease acute acute Supervision of normal first acute [facility] Work Phone: Evaluation note* Diagnosis Onset Date Resolution Status Acute pharyngitis acute Contact with or suspected ex posure to other viral communicable disease acute acute Supervision of normal first acute Hyperbilirubinemia acute acute Supervision of normal first acute [facility] Work Phone: Evaluation note* Diagnosis Onset Date Resolution Status acute Supervision of normal first acute Hyperbilirubinemia resolved acute Supervision of normal first acute acute Supervision of normal first acute Abnormal glucose affecting acute Anemia during acut e acute Supervision of normal first acute [facility] Work Phone: evaluation note* Diagnosis Onset Date [...] e acute Supervision of normal first acute [facility] Work Phone: evaluation note* Diagnosis Onset Date [...] e acute Supervision of normal first acute [facility] Work Phone: evaluation note* Diagnosis Onset Date [...] normal first acute (spontaneous vaginal delivery) acute [facility] Work Phone: Evaluation note* Diagnosis Onset Date Resolution Status care and examination noneactive [facility] Work Phone: Hospital Discharge instructionsAdditional Instructions Use the prescription, 2 drops into your left eye 4 times a day for 5 days. If symptoms are not improving follow-up with your primary care doctor.[facility] Work Phone: Progress note Author Manjula Goldman [facility] Note Date/Time February 19, 2025 11:44 am [facility] [address], [address] [place] [address] OFFICE VISIT Date of Service: 02/19/25 MR#: [id number] Acct: [id number] Name: JIMMY ATWOOD Rep #: [id number] : 1995 Provider: QUITA Goldman Age/Sex: 29/F [place] [facility] Status: Signed with Addenda ADDENDUM by Tessa Hearn on 02/19/25 at 1154 Office Procedure Documentation entered by Tessa Hearn 02/19/25 11:54: Immunizations Boostrix Tdap 2.5 Lf unit-8 mcg-5 Lf/0.5 mL intramuscular syringe Performing Provider: Manjula Goldman CNM Performing Location: [facility] Administered by: Tessa Hearn on 02/19/25 11:52 Dose Route Admin Location Dispensed Lot Number Expiration Date NDC Retirement Actuary 0.5 mL IM Right Deltoid 0.5 mL [id number] 10/19/26 53424-017-88 [employer]SY SEWE[employer]PASTEUR VIS Given Date VIS Provided [...] 111/71 Intake Visit Reasons: 28 wk ob Stamping Mill Tender Required: No Is patient in pain?: No [...] 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 Date Name GA/Weeks Outcome Route Bth Weight Infant Gen Labor Lgth Anesthesia Del Locatn Provider FOB 01/23/23 Cm 41 live - full term 9#1oz Male epid ural [facility] Payal Willard HPI 28 wk ob Details: [...] Declines NIPT. would like some appts in [place]. 11/01/24 -?-?-?-?-?-?-?-?-?-?-?-?- 12w 2d 150 lb [...] Preeclampsia, Labor Signs, Infant Feeding No , [place] Education and Family Medical Leave or Disability [...] this visit. GA appropriate handout given. 02/19/25 8675 <Electronically signed by Manjula waters CNM> Date _ Manjula Goldman CNM Cosigner Signature: Date (if applicable) CC: ~ [facility] Work Phone: Progress note Author Manjula Goldman [facility] Note Date/Time March 19, 2025 12:5 4pm 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 Date Name GA/Weeks Outcome Route Bth Weight Gen Labor Lgth Anesthesia Del Locatn Provider FOB 01/23/23 Cm 41 live - full term 9#1oz Male epid ural [facility] HPI 32 wk ob Details: JIMMY ATWOOD [...] Declines NIPT. would like some appts in [facility]. 11/01/24 -?-?-?-?-?-?-?-?-?-?-?-?- 12w 2d 150 lb 8 [...] Preeclampsia, Labor Signs, Infant Feeding No , [place] Education and Family Medical Leave or Disability [...] Cosigner Signature: Date (if applicable) CC: ~ [facility] Work Phone: Reason for referral (narrative)No reason for referral information availableKaiser Hospital Work Phone: Summary Purpose Family History No Family History Records Found Relationship Condition Age at Onset Recorded Date/T arianna father Cardiac disease Unknown Advance Directives No Advanced Directives Records Found Advance Directive Response Recorded Date/ Time Living Will No January 23, 2023 7 :45am Power of Energy Trader No January 23, 2023 7:45am Advance Directive Response Recorded Date/ Time Living Will No January 23, 2023 6 :45am Power of Energy Trader No January 23, 2023 6:45am Advance Directive Response Recorded Date/ Time Do you have a Healthcare Power of Energy Trader? No March 23, 2025 1:16pm Chief Complaint [...] section and content) DATE CREATED AUTHOR 07/06/2020 [facility] DATE CREATED AUTHOR AUTHOR'S ORGANIZ ATION 10/12/2024 [facility] DATE CREATED AUTHOR AUTHOR'S ORGANIZ ATION 10/14/2024 [facility] DATE CREATED AUTHOR AUTHOR'S ORGANIZ ATION 10/15/2024 [facility] DATE CREATED AUTHOR AUTHOR'S ORGANIZ ATION 12/18/2024 [facility] DATE CREATED AUTHOR AUTHOR'S ORGANIZ ATION 05/10/[address] [facility] Goals (unrecognized section and content) Type [...] Active Member Role Status Brie Méndez NP, ODD BUNDLE WORKER-C Primary Care Provider Active Team Status: Inactive Member Role Status Brie Méndez NP, ODD BUNDLE WORKER-C Primary Care Provider, Referring Provider Active Dr. Carline Escobar DO Attending Provider Activ e Team Status: Inactive Member Role Status Brie Méndez NP, ODD BUNDLE WORKER-C Primary Care Provider, Referring Provider Active Tania Gutiérrez ODD BUNDLE WORKER, ODD BUNDLE WORKER-C Attending Provider Active Team Status: Inactive Member Role Status Brie Méndez NP, ODD BUNDLE WORKER-C Primary Care Provider, Referring Provider Active Dr. Nelly Gay MD Attending Provider Active Team Status: Inactive Member Role Status Brie Méndez NP, ODD BUNDLE WORKER-C Primary Care Provider Active Dr. Nelly Gay MD Attending Provider, Referr ing Provider Active Team Status: Active Member Role Status Brie Méndez NP, ODD BUNDLE WORKER-C Primary Care Provider Active Tania Gutiérrez NP, ODD BUNDLE WORKER-C Attending Provider, Referring Provider Active Team Status: Inactive Member Role Status Brie Méndez NP, ODD BUNDLE WORKER-C Primary Care Provider Active Tania Gutiérrez ODD BUNDLE WORKER, ODD BUNDLE WORKER-C Attending Provider, Referring Provider Active Team Status: Inactive Member Role Status Dates Yudi Méndez ODD BUNDLE WORKER, ODD BUNDLE WORKER-C Primary Care Provider, Referring Provider Active Manjula Goldman CNM Attending Provider Active Team Status: Inactive Member Role Status Dates Yudi Méndez ODD BUNDLE WORKER, ODD BUNDLE WORKER-C Primary Care Provider Active Manjula Goldman CNM Attending Provider, Referring Pro vider Active Dr. Carline Escobar DO Other Provider Active Team Status: Active Member Role Status Dates Yudi Méndez NP, ODD BUNDLE WORKER-C Primary Care Provider Active Dr. Nelly Gay MD Admit Provider, Other Prov ider Active Payal Hutchins CNM Attending Provider Active Team Status: Active Member Role Status Dates Yudi Méndez ODD BUNDLE WORKER, ODD BUNDLE WORKER-C Primary Care Provider Active Payal Hutchins CNM Admit Provider, Other Provider A ctive Manjula Goldman CNM Attending Provider Active Team Status: Inactive Member Role Status Dates Yudi Méndez ODD BUNDLE WORKER, ODD BUNDLE WORKER-C Primary Care Provider Active Payal Hutchins CNM Admit Provider, Attending Provid er Active Team Status: Inactive Member Role Status Dates Yudi Méndez ODD BUNDLE WORKER, ODD BUNDLE WORKER-C Primary Care Provider Active Dr. Roxann Michaels MD Attending Provider, Referring Pro vider Active Team Status: Inactive Member Role Status Dates Yudi Méndez ODD BUNDLE WORKER, ODD BUNDLE WORKER-C Primary Care Provider Active Start: October 04, 2024 End: October 04, 2024 Yudi Méndez NP, ODD BUNDLE WORKER-C Referring Provider Active S tart: October 04, 2024 End: October 04, 2024 Manjula Goldman CNM Attending Provider Active S tart: October 04, 2024 End: October 04, 2024 Team Status: Inactive Member Role Status Dates Yudi Méndez ODD BUNDLE WORKER, ODD BUNDLE WORKER-C Primary Care Provider Active Start: October 04, 2024 End: October 04, 2024 Manjula Goldman CNM Attending Provider Active S tart: October 04, 2024 End: October 04, 2024 Manjula Goldman CNM Referring Provider Active S tart: October 04, 2024 End: October 04, 2024 Team Status: Inactive Member Role Status Dates Yudi Méndez ODD BUNDLE WORKER, ODD BUNDLE WORKER-C Primary Care Provider Active Start: November 01, 2024 End: November 01, 2024 Yudi Méndez NP, ODD BUNDLE WORKER-C Referring Provider Active S tart: November 01, 2024 End: November 01, 2024 Dr. Carline Escobar DO Attending Provider Activ e Start: November 01, 2024 End: November 01, 2024 Team Status: Inactive Member Role Status Dates Yudi Méndez ODD BUNDLE WORKER, ODD BUNDLE WORKER-C Primary Care Provider Active Start: November 26, 2024 End: November 26, 2024 Yudi Méndez ODD BUNDLE WORKER, ODD BUNDLE WORKER-C Referring Provider Active S tart: November 26, 2024 End: November 26, 2024 Dr. Ravinder Suazo MD Attending Provider Active Start: November 26, 2024 End: November 26, 2024 Team Status: Inactive Member Role Status Dates Yudi Méndez ODD BUNDLE WORKER, ODD BUNDLE WORKER-C Primary Care Provider Active Start: November 26, 2024 End: November 26, 2024 Dr. Ravinder Suazo MD Attending Provider Active Start: November 26, 2024 End: November 26, 2024 Dr. Ravinder Suazo MD Referring Provider Active Start: November 26, 2024 End: November 26, 2024 Team Status: Inactive Member Role Status Dates Yudi Méndez ODD BUNDLE WORKER, ODD BUNDLE WORKER-C Primary Care Provider Active Start: November 27, 2024 End: November 27, 2024 Yudi Méndez ODD BUNDLE WORKER, ODD BUNDLE WORKER-C Referring Provider Active S tart: November 27, 2024 End: November 27, 2024 Manjula Goldman CNM Attending Provider Active S tart: November 27, 2024 End: November 27, 2024 Team Status: Inactive Member Role Status Dates Yudi Méndez ODD BUNDLE WORKER, ODD BUNDLE WORKER-C Primary Care Provider Active Start: January 01, 2025 End: January 01, 2025 Yudi Méndez ODD BUNDLE WORKER, ODD BUNDLE WORKER-C Referring Provider Active S tart: January 01, 2025 End: January 01, 2025 Manjula Goldman CNM Attending Provider Active S tart: January 01, 2025 End: January 01, 2025 Team Status: Inactive Member Role Status Dates Yudi Méndez ODD BUNDLE WORKER, ODD BUNDLE WORKER-C Primary Care Provider Active Start: January 29, 2025 End: January 29, 2025 Yudi Méndez ODD BUNDLE WORKER, ODD BUNDLE WORKER-C Referring Provider Active S tart: January 29, 2025 End: January 29, 2025 Dr. Carline Escobar DO Attending Provider Activ e Start: January 29, 2025 End: January 29, 2025 Team Status: Active Member Role Status Dates Yudi Méndez ODD BUNDLE WORKER, ODD BUNDLE WORKER-C Primary Care Provider Active Start: January 29, 2025 Dr. Nelly Gay MD Attending Provider Active Start: January 29, 2025 Dr. Nelly Gay MD Referring Provider Active Start: January 29, 2025 Team Status: Inactive Member Role Status Dates Yudi Méndez ODD BUNDLE WORKER, ODD BUNDLE WORKER-C Primary Care Provider Active Start: January 29, 2025 End: January 29, 2025 Dr. Nelly Gay MD Attending Provider Active Start: January 29, 2025 End: January 29, 2025 Dr. Nelly Gay MD Referring Provider Active Start: January 29, 2025 End: January 29, 2025 Team Status: Active Member Role/Relationship Status Dates Yudi Méndez ODD BUNDLE WORKER, ODD BUNDLE WORKER-C Primary Care Provider Active Team Status: Inactive Member Role/Relationship Status Dates Yudi Méndez ODD BUNDLE WORKER, ODD BUNDLE WORKER-C Primary Care Provider Active Start: November 01, 2024 End: November 01, 2024 Yudi Méndez ODD BUNDLE WORKER, ODD BUNDLE WORKER-C Referring Provider Active S tart: November 01, 2024 End: November 01, 2024 Dr. Carline Escobar DO Attending Provider Activ e Start: November 01, 2024 End: November 01, 2024 Team Status: Inactive Member Role/Relationship Status Dates Yudi Méndez ODD BUNDLE WORKER, ODD BUNDLE WORKER-C Primary Care Provider Active Start: November 26, 2024 End: November 26, 2024 Yudi Méndez ODD BUNDLE WORKER, ODD BUNDLE WORKER-C Referring Provider Active S tart: November 26, 2024 End: November 26, 2024 Dr. Ravinder Suazo MD Attending Provider Active Start: November 26, 2024 End: November 26, 2024 Team Status: Inactive Member Role/Relationship Status Dates Yudi Méndez ODD BUNDLE WORKER, ODD BUNDLE WORKER-C Primary Care Provider Active Start: November 26, 2024 End: November 26, 2024 Dr. Ravinder Suazo MD Attending Provider Active Start: November 26, 2024 End: November 26, 2024 Dr. Ravinder Suazo MD Referring Provider Active Start: November 26, 2024 End: November 26, 2024 Team Status: Inactive Member Role/Relationship Status Dates Yudi Méndez ODD BUNDLE WORKER, ODD BUNDLE WORKER-C Primary Care Provider Active Start: November 27, 2024 End: November 27, 2024 Yudi Méndez ODD BUNDLE WORKER, ODD BUNDLE WORKER-C Referring Provider Active S tart: November 27, 2024 End: November 27, 2024 Manjula Goldman CNM Attending Provider Active S tart: November 27, 2024 End: November 27, 2024 Team Status: Inactive Member Role/Relationship Status Dates Yudi Méndez ODD BUNDLE WORKER, ODD BUNDLE WORKER-C Primary Care Provider Active Start: January 01, 2025 End: January 01, 2025 Yudi Méndez ODD BUNDLE WORKER, ODD BUNDLE WORKER-C Referring Provider Active S tart: January 01, 2025 End: January 01, 2025 Manjula Goldman CNM Attending Provider Active S tart: January 01, 2025 End: January 01, 2025 Team Status: Inactive Member Role/Relationship Status Dates Yudi Méndez ODD BUNDLE WORKER, ODD BUNDLE WORKER-C Primary Care Provider Active Start: January 29, 2025 End: January 29, 2025 Yudi Méndez ODD BUNDLE WORKER, ODD BUNDLE WORKER-C Referring Provider Active S tart: January 29, 2025 End: January 29, 2025 Dr. Carline Escobar DO Attending Provider Activ e Start: January 29, 2025 End: January 29, 2025 Team Status: Inactive Member Role/Relationship Status Dates Yudi Méndez ODD BUNDLE WORKER, ODD BUNDLE WORKER-C Primary Care Provider Active Start: January 29, 2025 End: January 29, 2025 Dr. Nelly Gay MD Attending Provider Active Start: January 29, 2025 End: January 29, 2025 Dr. Nelly Gay MD Referring Provider Active Start: January 29, 2025 End: January 29, 2025 Team Status: Inactive Member Role/Relationship Status Dates Yudi Méndez ODD BUNDLE WORKER, ODD BUNDLE WORKER-C Primary Care Provider Active Start: February 19, 2025 End: February 19, 2025 Yudi Méndez ODD BUNDLE WORKER, ODD BUNDLE WORKER-C Referring Provider Active S tart: February 19, 2025 End: February 19, 2025 Manjula Goldman CNM Attending Provider Active S tart: February 19, 2025 End: February 19, 2025 Team Status: Inactive Member Role/Relationship Status Dates Yudi Méndez ODD BUNDLE WORKER, ODD BUNDLE WORKER-C Primary Care Provider Active Start: November 26, 2024 End: November 26, 2024 Yudi Méndez ODD BUNDLE WORKER, ODD BUNDLE WORKER-C Referring Provider Active S tart: November 26, 2024 End: November 26, 2024 Dr. Ravinder Suazo MD Attending Provider Active Start: November 26, 2024 End: November 26, 2024 Team Status: Inactive Member Role/Relationship Status Dates Yudi Méndez ODD BUNDLE WORKER, ODD BUNDLE WORKER-C Primary Care Provider Active Start: November 26, 2024 End: November 26, 2024 Dr. Ravinder Suazo MD Attending Provider Active Start: November 26, 2024 End: November 26, 2024 Dr. Ravinder Suazo MD Referring Provider Active Start: November 26, 2024 End: November 26, 2024 Team Status: Inactive Member Role/Relationship Status Dates Yudi Méndez ODD BUNDLE WORKER, ODD BUNDLE WORKER-C Primary Care Provider Active Start: November 27, 2024 End: November 27, 2024 Yudi Méndez ODD BUNDLE WORKER, ODD BUNDLE WORKER-C Referring Provider Active S tart: November 27, 2024 End: November 27, 2024 Manjula Goldman CNM Attending Provider Active S tart: November 27, 2024 End: November 27, 2024 Team Status: Inactive Member Role/Relationship Status Dates Yudi Méndez ODD BUNDLE WORKER, ODD BUNDLE WORKER-C Primary Care Provider Active Start: January 01, 2025 End: January 01, 2025 Yudi Méndez ODD BUNDLE WORKER, ODD BUNDLE WORKER-C Referring Provider Active S tart: January 01, 2025 End: January 01, 2025 Manjula Goldman CNM Attending Provider Active S tart: January 01, 2025 End: January 01, 2025 Team Status: Inactive Member Role/Relationship Status Dates Yudi Médnez ODD BUNDLE WORKER, ODD BUNDLE WORKER-C Primary Care Provider Active Start: January 29, 2025 End: January 29, 2025 Yudi Méndez ODD BUNDLE WORKER, ODD BUNDLE WORKER-C Referring Provider Active S tart: January 29, 2025 End: January 29, 2025 Dr. Carline Escobar DO Attending Provider Activ e Start: January 29, 2025 End: January 29, 2025 Team Status: Inactive Member Role/Relationship Status Dates Yudi Méndez ODD BUNDLE WORKER, ODD BUNDLE WORKER-C Primary Care Provider Active Start: January 29, 2025 End: January 29, 2025 Dr. Nelly Gay MD Attending Provider Active Start: January 29, 2025 End: January 29, 2025 Dr. Nelly Gay MD Referring Provider Active Start: January 29, 2025 End: January 29, 2025 Team Status: Inactive Member Role/Relationship Status Dates Yudi Méndez ODD BUNDLE WORKER, ODD BUNDLE WORKER-C Primary Care Provider Active Start: February 19, 2025 End: February 19, 2025 Yudi Méndez ODD BUNDLE WORKER, ODD BUNDLE WORKER-C Referring Provider Active S tart: February 19, 2025 End: February 19, 2025 Manjula Goldman CNM Attending Provider Active S tart: February 19, 2025 End: February 19, 2025 Team Status: Inactive Member Role/Relationship Status Dates Yudi Méndez ODD BUNDLE WORKER, ODD BUNDLE WORKER-C Primary Care Provider Active Start: March 07, 2025 End: March 07, 2025 Yudi Méndez ODD BUNDLE WORKER, ODD BUNDLE WORKER-C Referring Provider Active S tart: March 07, 2025 End: March 07, 2025 Dr. Nelly Gay MD Attending Provider Active Start: March 07, 2025 End: March 07, 2025 Team Status: Inactive Member Role/Relationship Status Dates Yudi Méndez ODD BUNDLE WORKER, ODD BUNDLE WORKER-C Primary Care Provider Active Start: March 19, 2025 End: March 19, 2025 Yudi Méndez ODD BUNDLE WORKER, ODD BUNDLE WORKER-C Referring Provider Active S tart: March 19, 2025 End: March 19, 2025 Manjula Goldman CNM Attending Provider Active S tart: March 19, 2025 End: March 19, 2025 Team Status: Inactive Member Role/Relationship Status Dates Yudi Méndez ODD BUNDLE WORKER, ODD BUNDLE WORKER-C Primary Care Provider Active Start: March 23, 2025 End: March 23, 2025 Dr. Lucius Combs , DO Emergency Provider Activ e Start: March 23, 2025 End: March 23, 2025 Team Status: Inactive Member Role/Relationship Status Dates Yudi Méndez ODD BUNDLE WORKER, ODD BUNDLE WORKER-C Primary Care Provider Active Start: January 01, 2025 End: January 01, 2025 Yudi Méndez ODD BUNDLE WORKER, ODD BUNDLE WORKER-C Referring Provider Active S tart: January 01, 2025 End: January 01, 2025 Manjula Goldman CNM Attending Provider Active S tart: January 01, 2025 End: January 01, 2025 Team Status: Inactive Member Role/Relationship Status Dates Yudi Méndez ODD BUNDLE WORKER, ODD BUNDLE WORKER-C Primary Care Provider Active Start: January 29, 2025 End: January 29, 2025 Yudi Méndez ODD BUNDLE WORKER, ODD BUNDLE WORKER-C Referring Provider Active S tart: January 29, 2025 End: January 29, 2025 Dr. Carline Escobar , DO Attending Provider Activ e Start: January 29, 2025 End: January 29, 2025 Team Status: Inactive Member Role/Relationship Status Dates Yudi Méndez ODD BUNDLE WORKER, ODD BUNDLE WORKER-C Primary Care Provider Active Start: January 29, 2025 End: January 29, 2025 Dr. Nelly Gay MD Attending Provider Active Start: January 29, 2025 End: January 29, 2025 Dr. Nelly Gay MD Referring Provider Active Start: January 29, 2025 End: January 29, 2025 Team Status: Inactive Member Role/Relationship Status Dates Yudi Méndez ODD BUNDLE WORKER, ODD BUNDLE WORKER-C Primary Care Provider Active Start: February 19, 2025 End: February 19, 2025 Yudi Méndez ODD BUNDLE WORKER, ODD BUNDLE WORKER-C Referring Provider Active S tart: February 19, 2025 End: February 19, 2025 Manjula Goldman CNM Attending Provider Active S tart: February 19, 2025 End: February 19, 2025 Team Status: Inactive Member Role/Relationship Status Dates Yudi Méndez ODD BUNDLE WORKER, ODD BUNDLE WORKER-C Primary Care Provider Active Start: March 07, 2025 End: March 07, 2025 Yudi Méndez ODD BUNDLE WORKER, ODD BUNDLE WORKER-C Referring Provider Active S tart: March 07, 2025 End: March 07, 2025 Dr. Nelly Gay MD Attending Provider Active Start: March 07, 2025 End: March 07, 2025 Team Status: Inactive Member Role/Relationship Status Dates Yudi Méndez ODD BUNDLE WORKER, ODD BUNDLE WORKER-C Primary Care Provider Active Start: March 19, 2025 End: March 19, 2025 Yudi Méndez ODD BUNDLE WORKER, ODD BUNDLE WORKER-C Referring Provider Active S tart: March 19, 2025 End: March 19, 2025 Manjula Goldman CNM Attending Provider Active S tart: March 19, 2025 End: March 19, 2025 Team Status: Inactive Member Role/Relationship Status Dates Yudi Méndez ODD BUNDLE WORKER, ODD BUNDLE WORKER-C Primary Care Provider Active Start: March 23, 2025 End: March 23, 2025 Dr. Lucius Combs DO Attending Provider Activ e Start: March 23, 2025 End: March 23, 2025 Dr. Lucius Combs DO Emergency Provider Activ e Start: March 23, 2025 End: March 23, 2025 Team Status: Inactive Member Role/Relationship Status Dates Yudi Méndez ODD BUNDLE WORKER, ODD BUNDLE WORKER-C Primary Care Provider Active Start: March 31, 2025 End: March 31, 2025 Yudi Méndez ODD BUNDLE WORKER, ODD BUNDLE WORKER-C Referring Provider Active S tart: March 31, 2025 End: March 31, 2025 Tania Gutiérrez ODD BUNDLE WORKER, ODD BUNDLE WORKER-C Attending Provider Active Start: March 31, 2025 End: March 31, 2025 Team Status: Inactive Member Role/Relationship Status Dates Yudi Méndez ODD BUNDLE WORKER, ODD BUNDLE WORKER-C Primary Care Provider Active Start: April 16, 2025 End: April 16, 2025 Yudi Méndez ODD BUNDLE WORKER, ODD BUNDLE WORKER-C Referring Provider Active S tart: April 16, 2025 End: April 16, 2025 Dr. Carline Escobar DO Attending Provider Activ e Start: April 16, 2025 End: April 16, 2025 Team Status: Inactive Member Role/Relationship Status Dates Yudi Méndez ODD BUNDLE WORKER, ODD BUNDLE WORKER-C Primary Care Provider Active Start: April 16, 2025 End: April 16, 2025 Dr. Carline Escobar DO Attending Provider Activ e Start: April 16, 2025 End: April 16, 2025 Dr. Carline Escobar DO Referring Provider Activ e Start: April 16, 2025 End: April 16, 2025 Team Status: Inactive Member Role/Relationship Status Dates Yudi Méndez ODD BUNDLE WORKER, ODD BUNDLE WORKER-C Primary Care Provider Active Start: April 24, 2025 End: April 24, 2025 Yudi Méndez ODD BUNDLE WORKER, ODD BUNDLE WORKER-C Referring Provider Active S tart: April 24, 2025 End: April 24, 2025 Dr. Nelly Gay MD Attending Provider Active Start: April 24, 2025 End: April 24, 2025 Team Status: Inactive Member Role/Relationship Status Dates Yudi Méndez ODD BUNDLE WORKER, ODD BUNDLE WORKER-C Primary Care Provider Active Start: April 30, 2025 End: April 30, 2025 Yudi Méndez ODD BUNDLE WORKER, ODD BUNDLE WORKER-C Referring Provider Active S tart: April 30, 2025 End: April 30, 2025 Manjula Goldman CNM Attending Provider Active S tart: April 30, 2025 End: April 30, 2025 Team Status: Active Member Role/Relationship Status Dates Yudi Méndez ODD BUNDLE WORKER, ODD BUNDLE WORKER-C Primary care physician Active Team Status: Inactive Member Role/Relationship Status Dates Yudi Méndez ODD BUNDLE WORKER, ODD BUNDLE WORKER-C Primary care physician Active Start: January 29, 2025 End: January 29, 2025 Yudi Méndez ODD BUNDLE WORKER, ODD BUNDLE WORKER-C Referring Provider Active S tart: January 29, 2025 End: January 29, 2025 Dr. Carline Escobar DO Attending physician Acti ve Start: January 29, 2025 End: January 29, 2025 Team Status: Inactive Member Role/Relationship Status Dates Yudi Méndez ODD BUNDLE WORKER, ODD BUNDLE WORKER-C Primary care physician Active Start: January 29, 2025 End: January 29, 2025 Dr. Nelly Gay MD Attending physician Active Start: January 29, 2025 End: January 29, 2025 Dr. Nelly Gay MD Referring Provider Active Start: January 29, 2025 End: January 29, 2025 Team Status: Inactive Member Role/Relationship Status Dates Yudi Méndez ODD BUNDLE WORKER, ODD BUNDLE WORKER-C Primary care physician Active Start: February 19, 2025 End: February 19, 2025 Yudi Méndez ODD BUNDLE WORKER, ODD BUNDLE WORKER-C Referring Provider Active S tart: February 19, 2025 End: February 19, 2025 Manjula Goldman CNM Attending physician Active Start: February 19, 2025 End: February 19, 2025 Team Status: Inactive Member Role/Relationship Status Dates Yudi Méndez ODD BUNDLE WORKER, ODD BUNDLE WORKER-C Primary care physician Active Start: March 07, 2025 End: March 07, 2025 Yudi Méndez ODD BUNDLE WORKER, ODD BUNDLE WORKER-C Referring Provider Active S tart: March 07, 2025 End: March 07, 2025 Dr. Nelly Gay MD Attending physician Active Start: March 07, 2025 End: March 07, 2025 Team Status: Inactive Member Role/Relationship Status Dates Yudi Méndez ODD BUNDLE WORKER, ODD BUNDLE WORKER-C Primary care physician Active Start: March 19, 2025 End: March 19, 2025 Yudi Méndez ODD BUNDLE WORKER, ODD BUNDLE WORKER-C Referring Provider Active S tart: March 19, 2025 End: March 19, 2025 Manjula Goldman CNM Attending physician Active Start: March 19, 2025 End: March 19, 2025 Team Status: Inactive Member Role/Relationship Status Dates Yudi Méndez ODD BUNDLE WORKER, ODD BUNDLE WORKER-C Primary care physician Active Start: March 23, 2025 End: March 23, 2025 Dr. Lucius Combs DO Attending physician Active Start: March 23 End: March 23, 2025 Dr. Lucius Combs DO Emergency Department Physician Active Start: March 23, 2025 End: March 23, 2025 Team Status: Inactive Member Role/Relationship Status Dates Yudi Méndez ODD BUNDLE WORKER, ODD BUNDLE WORKER-C Primary care physician Active Start: March 31, 2025 End: March 31, 2025 Yudi Méndez ODD BUNDLE WORKER, ODD BUNDLE WORKER-C Referring Provider Active S tart: March 31, 2025 End: March 31, 2025 Tania Gutiérrez ODD BUNDLE WORKER, ODD BUNDLE WORKER-C Attending physician Active Start: March 31, 2025 End: March 31, 2025 Team Status: Inactive Member Role/Relationship Status Dates Yudi Méndez ODD BUNDLE WORKER, ODD BUNDLE WORKER-C Primary care physician Active Start: April 16, 2025 End: April 16, 2025 Yudi Méndez ODD BUNDLE WORKER, ODD BUNDLE WORKER-C Referring Provider Active S tart: April 16, 2025 End: April 16, 2025 Dr. Carline Escobar DO Attending physician Acti ve Start: April 16, 2025 End: April 16, 2025 Team Status: Inactive Member Role/Relationship Status Dates Yudi Méndez ODD BUNDLE WORKER, ODD BUNDLE WORKER-C Primary care physician Active Start: April 16, 2025 End: April 16, 2025 Dr. Carline Escobar DO Attending physician Acti ve Start: April 16, 2025 End: April 16, 2025 Dr. Carline Escobar DO Referring Provider Activ e Start: April 16, 2025 End: April 16, 2025 Team Status: Inactive Member Role/Relationship Status Dates Yudi Méndez ODD BUNDLE WORKER, ODD BUNDLE WORKER-C Primary care physician Active Start: April 24, 2025 End: April 24, 2025 Yudi Méndez ODD BUNDLE WORKER, ODD BUNDLE WORKER-C Referring Provider Active S tart: April 24, 2025 End: April 24, 2025 Dr. Nelly Gay MD Attending physician Active Start: April 24, 2025 End: April 24, 2025 Team Status: Inactive Member Role/Relationship Status Dates Yudi Méndez ODD BUNDLE WORKER, ODD BUNDLE WORKER-C Primary care physician Active Start: April 30, 2025 End: April 30, 2025 Yudi Méndez ODD BUNDLE WORKER, ODD BUNDLE WORKER-C Referring Provider Active S tart: April 30, 2025 End: April 30, 2025 Manjula Goldman CNM Attending physician Active Start: April 30, 2025 End: April 30, 2025 Team Status: Inactive Member Role/Relationship Status Dates Yudi Méndez ODD BUNDLE WORKER, ODD BUNDLE WORKER-C Primary care physician Active Start: May 07, 2025 End: May 07, 2025 Yudi Aris ODD BUNDLE WORKER, ODD BUNDLE WORKER-C Referring Provider Active S tart: May 07, [...] BE BASED ON THE PRIMARY CLINICAL RECORDS. [employer] provides no warranty or guarantee of the accuracy or completeness of information in this document.
[2025-05-11 19:51] VITALS: O2SAT 79
[2025-05-11 19:52] VITALS: PULSE 175; O2SAT 79
[2025-05-11 19:53] VITALS: PULSE 91; RESP 16; TEMP 36.4; O2SAT 98
[2025-05-11 19:54] VITALS: BP 122/67; PULSE 86
--- NOTE | 2025-05-11 19:56 | HP.PCM.OB_ITS ---
HPI - General General Date of Admission: 05/11/25 Date of Service: 05/11/25 HPI Narrative JIMMY ARELLANO, is a 30 F 39.4 weeks who presents to unit in active labor. admission orders given Maternal Data Information PARAG Calculator Estimated Delivery Date Method Current WG Current Estimate 05/14/25 Ultrasound #1 39w 4d Other Estimates 05/10/25 LMP (Certain) 40w 1d Final PARAG: 05/14/25 Final PARAG Source: US >20 weeks Gestational age: 39.4 PFSH PFSH Medical History GBS (group B 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), +RV culture, currently Home Medications ?Medication ?Instructions ?Recorded ?Last Taken ?Type mv-mn 110-FA 180 mcg-om3 35 mg-dha 1 tab PO DAILY Chec k with primary 06/01/22 Unknown History 25 mg-epa 5 mg-fish oil chew tablet doctor ondansetron HCl 4 mg tablet 4 mg PO Q6-8H PRN nausea a nd 10/04/24 Unknown Rx vomiting #30 tabs Allergy/AdvReac Type Severity Reaction Status Date / Time Penicillins Allergy Intermediate Rash Verified 05/11/25 19:47 amoxicillin (From Augmentin) AdvReac Intermediate Rash Verified 05/11/25 19:47 clavulanic acid (From AdvReac Intermediate Rash Verified 05/11/25 19:47 Augmentin) sulfamethoxazole (From AdvReac Intermediate Rash Verified 05/11/25 19:47 Bactrim) terbinafine (From Lamisil) AdvReac Intermediate Rash Verified 05/11/25 19:47 trimethoprim (From Bactrim) AdvReac Intermediate Rash Verified 05/11/25 19:47 Family History Father Heart disease Surgical History Hx of tonsillectomy Social History adopted: No household members: spouse and children housing: house number of children: 1 current occupational status: employed 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 current occupational exposures/hazards: No pets and animals: Yes (2) pets and animals: dog(s) history of recent travel: No sexually active: Yes Smoking Status: Never smoker alcohol intake: current alcohol intake frequency: holidays/special occasions only details: Not while substance use type: does not use well-balanced diet: daily or most days caffeine: Yes Type: coffee Number of servings: 1 eating out: rarely or never during the past year weight has: remained stable what type of physical activity do you participate in: walking frequency: 3-4 times per week duration: 15-30 minutes/day peyton/voodoo: Evangelical seatbelt use: always do you feel safe at home: Yes 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 Date Name GA/Weeks Outcome Route Bth Weight Gen Labor Lgth Anesthesia Del Locatn Provider FOB 01/23/23 Cm 41 live - full term 9#1oz Male epid ural [facility] [place] Visit Details Expected Delivery Route/Plan Labor Preferences- CB/BF classes: [] labor support person: [] labor intervention preferences: [] pain management options preferred: [] cut cord/dad catch: [] : [] PP control planned: [] discussed possible routes of delivery and associated risks: [] special requests: [] Plans Covid status: [] Flu vaccine: [] Tdap vaccine: [] Rhogam: [] LARC form signed: [] Problem list reviewed and updated with the most current plan of care details and appropriate orders placed. Relevant counseling for the gestational age provided. Continue routine care and follow up unless otherwise noted in visit notes/problem list details OB Flowsheet Initial Weight: 152 lb Date -?-?-?-?-?-?-?-?-?-?-?-?- EGA Weight BP Urine Prot -?-?-?--?-?-?-?-?-?-?-?-?- Glucose FHR FuHt Pres Dilation -?-?-?-?-?-?-?-?-?--?-?-?- Effaced St Visit Note 10/04/24 -?-?-?-?-?-?-?-?-?-?-?-?- 8w 2d 152 lb 6 oz (+6 oz) 124/82 -?-?-?-?-?-?-?-?-?-?-?-?- 171 -?-?-?-?-?-?-?-?-?-?-?-?- KW- CRL cons wit h dates. Declines NIPT. would like some appts in [facility]. 11/01/24 -?-?-?-?-?-?-?-?-?-?-?-?- 12w 2d 150 lb 8 oz (-1 lb 8 oz) 114/75 Negative -?-?-?-?-?-?-?-?-?-?-?-?- Negative 164 -?-?-?-?-?-?-?-?-?-?-?-?- JV- no complaint s today. has a thyroid cyst that is visible and biopsy with Dr. Suazo on 11/26/24 . 11/27/24 -?-?-?-?-?-?-?-?-?--?-?-?- 16w 0d 158 lb 2 oz (+6 lb 2 oz) 101/67 Negative -?-?-?-?-?-?-?-?-?-?-?-?- Negative 150 -?-?-?-?-?-?-?-?-?-?-?-?- KW- no vb/crampi ng. good fm. US scheduled. 01/01/25 -?-?-?-?-?-?-?-?-?-?-?-?- 21w 0d 167 lb 8 oz (+15 lb 8 oz) 113/71 Negative -?-?-?-?-?-?-?-?-?-?-?-?- Negative 160 -?-?-?-?-?-?-?-?-?-?-?-?- KW- no vb/lof/ct x. good fm. thyroid nodule is benign but will need taken out after . TSH with next blood draw. KW- no vb/lof/ctx. good fm. thyroid nodule is benign but will need taken out after . TSH with next blood draw. glucose next visit 01/29/25 -?-?-?-?-?--?-?-?-?-?-?-?- 25w 0d 174 lb (+22 lb) 118/69 Negative -?-?-?-?-?-?-?-?-?-?-?-?- Negative 156 -?-?-?-?-?-?-?-?-?-?-?-?- JV- patient want s to know if fails 1 hr if can just do glucose testing. understands risks. 02/19/25 -?-?-?-?-?-?-?-?-?-?-?-?- 28w 0d 178 lb (+26 lb) 111/71 Negative -?-?-?-?-?-?-?-?-?-?-?-?- Negative 145 29 -?-?-?-?-?-?-?-?-?-?-?-?- KW- no vb/lof/ct x. good fm. Tdap today. 03/07/25 -?-?-?-?-?-?-?-?-?-?-?-?- 30w 2d 182 lb 2 oz (+30 lb 2 oz) 115/73 Negative -?-?-?-?-?-?-?-?-?-?-?-?- Negative 145 31 -?-?-?-?-?-?-?-?-?-?-?-?- Sm- no vb lof go od fm no reuglar ctx [facility] signed 03/19/25 -?-?-?-?-?-?-?-?-?-?-?-?- 32w 0d 183 lb (+31 lb) 104/67 Trace -?-?-?-?-?-?-?-?-?-?-?-?- Negative 150 33 -?-?-?-?-?-?-?-?-?-?-?-?- KW- no vb/lof/ct x. good fm. no concerns today 03/31/25 -?-?-?-?-?--?-?-?-?-?-?-?- 33w 5d 183 lb (+31 lb) 118/71 Negative -?-?-?-?-?-?-?-?-?-?-?-?- Negative 146 34 -?-?-?-?-?-?-?-?-?-?-?-?- MH-No vB, LOF. G ood FM. Denies concerns 04/16/25 -?-?-?-?-?-?-?-?-?-?-?-?- 36w 0d 187 lb 6 oz (+35 lb 6 oz) 119/73 Negative -?--?-?-?-?-?-?-?-?-?-?-?- Negative 156 36 Cephalic 1 -?-?-?-?-?-?-?-?-?-?-?-?- 0 -3 JV- no lof , vaginal bleeding, or dec fm. GBS today. 04/24/25 -?-?--?-?-?-?-?-?-?-?-?-?- 37w 1d 187 lb (+35 lb) 115/69 Negative -?-?-?-?-?-?-?-?-?-?-?-?- Negative 150 36 Cephalic 1 .5 -?-?-?-?-?-?-?-?--?-?-?-?- - SM- no vb lof good fm no regular ctx 04/30/25 -?-?-?-?-?-?-?-?-?-?-?-?- 38w 0d 189 lb (+37 lb) 118/72 Negative -?-?-?-?-?-?-?-?-?-?-?-?- Negative 145 38 Cephalic 1 .5 -?-?-?-?-?-?-?-?-?-?-?-?- 20 -2 KW- no vb/ lof/ctx. good fm. no concerns today. 05/07/25 -?-?-?-?-?-?-?-?-?-?-?-?- 39w 0d 190 lb 9 oz (+38 lb 9 oz) 122/76 Negative -?-?-?-?-?-?-?-?-?-?-?-?- Negative 135 38 1.5 -?-?-?-?-?-?-?-?-?-?-?-?- 50 -2 Sm- no vb lof good fm no regular ctx NST FHR Rate Baby A Baseline: 150 Variability:: Moderate Accelerations:: None Decelerations:: Variable NST Reactive:: Yes FHR Category:: Category II Uterine Activity:: 2-4 minutes ROS Constitutional Constitutional: Denies change in weight, fatigue, fever(s), headache(s), poor appetite or weakness Eyes Eyes: Denies blurry vision, change in vision, floaters, seeing flashes or spots in vision ENT HEENT: Denies dizziness, headache(s), loss taste/smell or sore throat Cardiovascular Cardiovascular: Denies chest pain, dizziness, dyspnea, irregular heart rhythm, lightheadedness, palpitations or rapid heart rate Respiratory/Chest Respiratory/Chest: Denies change in mental status, chest tightness, cough, dyspnea or breast pain Gastrointestinal Gastrointestinal: Denies anorexia, chewing difficulty, constipation, diarrhea or weight changes Genitourinary Genitourinary: Denies difficulty urinating, dysuria, flank pain, genital pain, urinary frequency or urinary urgency Musculoskeletal Musculoskeletal: Denies back pain, difficulty walking, extremity pain, joint pain, muscle cramps or muscle weakness Integumentary Integumentary: Denies lesions or unusual bruising Neurologic Neurologic: Denies abnormal movements, abnormal speech, dizziness, numbness, seizure-like activity, syncope or weakness Psychiatric Psychiatric: Denies behavioral changes, change in appetite, confusion, depression, homicidal ideation, suicidal ideation or suicidal thoughts Endocrine Endocrinology: Denies excessive sweating, polydipsia or polyuria Hematologic/Lymphatic Hematologic/Lymphatic: Denies anemia Allergic/Immunologic Allergic/Immunologic: Denies itchy eyes, lip swelling, throat swelling, tongue swelling or wheezing Physical Exam Const alert, oriented x3 and no apparent distress General Appearance: cooperative Orientation / Consciousness: awake HEENT normocephalic Neck full ROM Lymph Lymphatic: no lymphadenopathy noted Chest inspection of chest normal Resp normal respiratory effort and normal air movement Effort and Inspection: able to speak in complete sentences and symmetric chest movement GI soft to palpation and non-tender Inspection: gravid Palpation: soft; Negative for tender external exam normal Back/Spine normal to inspection Extremity normal to inspection and full ROM Skin no rashes or lesions noted Psych mental status grossly normal Appearance: grossly normal Speech: normal speech Labs Labs Labs: Blood Type O POSITIVE Antibody Screen NEGATIVE Hct, (37-47) 31.4 % L Hgb, (12.0-15.0) 10.9 g/dL L Obstetrics Ultrasound Syphilis Total Ab, (Nonreactive) Nonreactive Rubella IgG Antibody, (Nonreactive) Reactive Hep Bs Antigen, (Nonreactive) Non-Reactive Hepatitis C Antibody, (Nonreactive) Non-Reactive Chlamydia DNA (JOSE J), (Negative) Negative N.gonorrhoeae DNA (JOSE J), (Negative) Negative HIV 1&2 Antibody, (Nonreactive) Nonreactive Glucose 1 Hr 50 gm, (70-140) 116 mg/dL Gest Glucose Tolerance MG/DL Assessment & Plan (1) Positive GBS test: COMMENT: Allergic to PNC, resistant to Clinda. Will need vanc in labor (2) Screening for lead exposure: COMMENT: negative (3) Thyroid nodule: COMMENT: Patient is a 29-year-old female with incidentally noted right thyroid nodule that was first noted by her mother through casual observation. It was suspected this nodule was related to a prior viral illness but patient confirms that it was never very tender. Formal thyroid ultrasound was completed and radiology has rated this a TI-RADS 3 lesion. Patient does not appear to have any symptoms from a compressive standpoint. We discussed her thyroid ultrasound in detail using hand drawing schematic to illustrate the location as well as introduce the topic of the TI-RADS grading system. It should be noted that patient's thyroid nodule was rated a TI-RADS 3, however, it could technically be reclassified as a TI-RADS 2 given that it truly has a mixed composition (an otherwise isoechoic) with a substantial cystic component. Yet, because there could have been a consideration to describe this as mostly solid I extended the recommendation for biopsy to Mrs. Arellano after providing a description of the procedure. She was readily receptive and the procedure was undertaken in uncomplicated fashion during today's visit. Complete details are given in the procedures section of today's note. (4) Thyroid cyst: (5) Supervision of normal : QUALIFIERS: Normal : other normal Trimester: third trimester Qualified Code(s): Z34.83 - Encounter for supervision of other normal , third trimester COMMENT: PRR,, PARAG 05/10/25, girl PC Cm, Sudheer (6) : QUALIFIERS: Weeks of gestation: 39 weeks Qualified Code(s): Z3A.39 - 39 weeks gestation of COMMENT: declines NIPT & Carrier testing (7) Active labor: PLAN: Patient presents IAL, plan expectant management for , pitocin/AROM PRN if needed. Pain management: plans epidural. GBS positive plan IV Vancomycin. Management of any complications: none I have reviewed the [facility] and made any clinically relevant updates. Dr Villalpando aware of assessment, plan and admission. agrees with above Charges/Coding Multi Select Codes Urinary/Genital Urinary/Genital CPT Codes: No Charge
[2025-05-11 20:10] LABS: Hematocrit 32.2 % (37-47); Hemoglobin 10.8 g/dL (12.0-15.0); Immature Granulocytes Count 0.110 X10^3/uL (0.0-0.0); Mean Corp Hgb Conc 33.5 g/dL (32-36); Mean Corpuscular Volume 91.7 fL (81-99); Mean Platelet Vol. 10.0 fl (6.2-12.0); NRBC Flagged by Analyzer 0 % (0-5); Platelet Count 336 K/mm3 (150-450); RBC Distribution Width CV 15.1 % (11.6-14.6); RBC Distribution Width SD 48.5 fl (35.1-43.9); Red Blood Count 3.51 M/mm3 (4.2-5.4); White Blood Count 12.1 K/mm3 (4.4-11.0)
[2025-05-11 20:30] VITALS: BMI 29.9
--- NOTE | 2025-05-11 20:54 | PN_ITS ---
Progress Note Coping well with contractions -just received epidural current tracing: FHT: 130 Moderate variability reactive no decelerations category I tracing [place]: 2-3 minutes Contractions Membranes: SROM at 2045 clear SVE:5/85/+1 involuntarily pushing with ctx A/P: Continue with position changes Titrate pitocin per protocol Epidural per anesthesia Vancomycin for GBS prophylaxis Anticipate Dr Villalpando aware of above assessment and agrees with plan of care Assessment & Plan Assessment/Plan (1) Active labor: (2) Positive GBS test: (3) Screening for lead exposure: (4) Thyroid nodule: (5) Thyroid cyst: (6) Supervision of normal : QUALIFIERS: Normal : other normal Trimester: third trimester Qualified Code(s): Z34.83 - Encounter for supervision of other normal , third trimester (7) : QUALIFIERS: Weeks of gestation: 39 weeks Qualified Code(s): Z3A.39 - 39 weeks gestation of Multi Select Codes Urinary/Genital Urinary/Genital CPT Codes: No Charge
[2025-05-11] MEDS: Vancomycin HCl 1,750 MG in 0.9% Normal Saline (500mL Bag) 500 ML 250 MG IV (21:05)
[2025-05-11 21:06] LABS: Syphilis Antibodies Nonreactive (Nonreactive)
--- OUTSIDE RECORDS SUMMARY | 2025-05-11 21:08 | XMS RPT_ITS | CCD ---
Author Organization [facility]iniSys[facility] Care Team Providers Care Surfacing Machine Operator Name Role Phone BRIAN Palomares Attending Provider Aris CLINICAL DATA ASSISTANT, CLINICAL DATA ASSISTANT-C Yudi Primary Care Provider [phone] Aris CLINICAL DATA ASSISTANT, CLINICAL DATA ASSISTANT-C Yudi Referring Provider Dr. Carline Escobar Attending Provider BRIAN Palomares Attending Provider Aris CLINICAL DATA ASSISTANT, CLINICAL DATA ASSISTANT-C Yudi Primary Care Provider Aris CLINICAL DATA ASSISTANT, CLINICAL DATA ASSISTANT-C Yudi Referring Provider Dr. Carline Escobar Attending Provider QUITA Hutchins Attending Provider Aris CLINICAL DATA ASSISTANT, CLINICAL DATA ASSISTANT-C Yudi Primary Care Provider Aris CLINICAL DATA ASSISTANT, CLINICAL DATA ASSISTANT-C Yudi Referring Provider Dr. Carline Escobar Attending Provider JUAN F Gutiérrez NPC Tania Attending Provider Dr. Nelly Gay Attending Provider QUITA Goldman Attending Provider Aris CLINICAL DATA ASSISTANT, CLINICAL DATA ASSISTANT-C Yudi Primary Care Provider Aris CLINICAL DATA ASSISTANT, CLINICAL DATA ASSISTANT-C Yudi Referring Provider Dr. Carline Escobar Attending Provider Aris CLINICAL DATA ASSISTANT, CLINICAL DATA ASSISTANT-C Yudi Primary Care Provider Aris CLINICAL DATA ASSISTANT, CLINICAL DATA ASSISTANT-C Yudi Referring Provider Brock PETERSON, CLINICAL DATA ASSISTANT-C Tania Attending Provider [phone] Dr. Nelly Gay Admit Provider [phone] Dr. Nelly Gay Other Provider [phone] Hutchins, QUITA Moe Attending Provider [phone] Cuong, QUITA Moe Admit Provider Cuong, CNEpifanio Moe Other Provider Aris CLINICAL DATA ASSISTANT, CLINICAL DATA ASSISTANT-C Yudi Primary Care Provider Aris CLINICAL DATA ASSISTANT, CLINICAL DATA ASSISTANT-C Yudi Referring Provider Dr. Nelly Gay Attending Provider [phone] ARIS, YUDI Attending Unavailable ARIS, YUDI Consulting Unavailable ARIS, YUDI Primary Care Unavailable ARIS, YUDI Admitting Unavailable PROVIDER, UNKNOWN Consulting Unavailable ARIS, YUDI K Primary Care Unavailable CARLINE MITCHELL Referring Unavailab CAIN De La Vega Attending Unavailable Aris CLINICAL DATA ASSISTANT-C, Yudi Primary Care Provider Aris CLINICAL DATA ASSISTANT-C, Yudi Referring Provider Manjula Goldman CNM Attending Provider [phone] Manjula Goldman CNM Referring Provider [phone] Dr. Carline Escobar DO Attending Provider Dr. Ravinder Suazo MD Attending Provider Dr. Ravinder Suazo MD Referring Provider Dr. Nelly Gay MD Attending Provider [phone] Dr. Nelly Gay MD Referring Provider [phone] Aris CLINICAL DATA ASSISTANT-C, Yudi Primary Care Provider Aris CLINICAL DATA ASSISTANT-C, Yudi Referring Provider Manjula Goldman CNM Attending Provider [phone] Aris CLINICAL DATA ASSISTANT-C, Yudi Primary Care Provider Aris CLINICAL DATA ASSISTANT-C, Yudi Referring Provider Dr. Carline Escobar DO Attending Provider Dr. Chris Combs DOel Emergency Provider Aris CLINICAL DATA ASSISTANT-C, Ydui Primary Care Provider Aris CLINICAL DATA ASSISTANT-C, Yudi Referring Provider Manjula Goldman CNM Attending Provider [phone] Garret WINTER, Dr. Kan Attending Provider Brock PETERSON-CTania Attending Provider [phone] Jessa Bolden DO, Dr. Crowley Referring Provider Aris CLINICAL DATA ASSISTANT-C, Yudi Primary Care Physician Aris CLINICAL DATA ASSISTANT-C, Yudi Referring Provider [phone] Jessa Bolden DO, Dr. Crowley Attending Physician Dr. Nelly Gay MD Attending Physician Manjula Goldman CNM Attending Physician [phone] Garret WINTER, Dr. Kan Attending Physician Garret WINTER, Dr. Kan [facility] Brock PETERSON-CTania Attending Physician [phone] Carline Escobar Attending Unavailabl e Aris CLINICAL DATA ASSISTANT, Yudi Primary Care Unavailable Aris CLINICAL DATA ASSISTANT, Yudi Referring Unavailable Aris CLINICAL DATA ASSISTANT, Yudi Referring Unavailable Aris CLINICAL DATA ASSISTANT, Yudi Primary Care Unavailable Nelly Gay Attending Unavailable Aris CLINICAL DATA ASSISTANT, Yudi Primary Care Unavailable Aris CLINICAL DATA ASSISTANT, Yudi Referring Unavailable Nelly Gay Attending Unavailable Aris CLINICAL DATA ASSISTANT, Yudi Primary Care Unavailable Aris CLINICAL DATA ASSISTANT, Yudi Referring Unavailable Manjula Goldman Attending Unavailable Aris CLINICAL DATA ASSISTANT, Yudi Primary Care Unavailable Aris CLINICAL DATA ASSISTANT, Yudi Referring Unavailable Manjula Goldman Attending Unavailable Aris CLINICAL DATA ASSISTANT, Yudi Primary Care Unavailable Aris CLINICAL DATA ASSISTANT, Yudi Referring Unavailable Carline Escobar Attending Unavailabl e Aris CLINICAL DATA ASSISTANT, Yudi Primary Care Unavailable Aris CLINICAL DATA ASSISTANT, Yudi Referring Unavailable Manjula Goldman Attending Unavailable Ravinder Suazo Attending Unavailable Aris CLINICAL DATA ASSISTANT, Yudi Primary Care Unavailable Aris CLINICAL DATA ASSISTANT, Yudi Referring Unavailable Aris CLINICAL DATA ASSISTANT, Yudi Primary Care Unavailable Carline Escobar Referring Unavailabl e Carline Escobar Attending Unavailmargoth Méndez CLINICAL DATA ASSISTANT, Yudi Referring Unavailable Manjula Goldman Attending Unavailable Aris CLINICAL DATA ASSISTANT, Yudi Primary Care Unavailable Aris CLINICAL DATA ASSISTANT, Yudi Primary Care Unavailable Aris CLINICAL DATA ASSISTANT, Yudi Referring Unavailable Nelly Gay Attending Unavailable Carline Escobar Attending Unavailmargoth e Aris CLINICAL DATA ASSISTANT, Yudi Referring Unavailable Aris CLINICAL DATA ASSISTANT, Yudi Primary Care Unavailable Aris CLINICAL DATA ASSISTANT, Yudi Referring Unavailable Mnajula Goldman Attending Unavailable Aris CLINICAL DATA ASSISTANT, Yudi Primary Care Unavailable Aris CLINICAL DATA ASSISTANT, Yudi Primary Care Unavailable Manjula Goldman Referring Unavailable Manjula Goldman Attending Unavailable Ravinder Suazo Referring Unavailable Ravinder Suazo Attending Unavailable Aris CLINICAL DATA ASSISTANT, Yudi Primary Care Unavailable Nelly Gay Referring Unavailable Nelly Gay Attending Unavailable Aris CLINICAL DATA ASSISTANT, Yudi Primary Care Unavailable Lucius Combs Attending Unavailmargoth e Aris CLINICAL DATA ASSISTANT, Yudi Primary Care Unavailable Aris CLINICAL DATA ASSISTANT, Yudi Primary Care Unavailable Aris CLINICAL DATA ASSISTANT, Yudi Referring Unavailable Nelly Gay Attending Unavailable Aris CLINICAL DATA ASSISTANT, Yudi Primary Care Unavailable Aris CLINICAL DATA ASSISTANT, Yudi Referring Unavailable Manjula Goldman Attending Unavailable Aris CLINICAL DATA ASSISTANT, Yudi Primary Care Unavailable Aris CLINICAL DATA ASSISTANT, Yudi Referring Unavailable Brock CLINICAL DATA ASSISTANT, Tania Attending Unavailable Allergies Allergy Classification Reported Allergen(s) Allergy Type Date of Onset Reaction(s) Facility (20 sources) Amoxicillin Drug Allergy 06-08-20 unknown, [facility] Comment on above: Itching (20 sources) Clavulanate Drug Allergy 06-08-20 unknown, [facility] Comment on above: itch (20 sources) Sulfamethoxazole Drug Allergy 06-08-20 unknown, [facility] Comment on above: Itch (20 sources) terbinafine Drug Allergy 06-08-20 unknown, [facility] Comment on above: itch (20 sources) Trimethoprim Drug Allergy 06-08-20 unknown, [facility] Comment on above: Itch (15 sources) Penicillins Allergy to substance 01-24-20 23 Other, [facility] Comment on above: itch (1 source) Amoxicillin / Clavulanate Drug Allergy [facility] Rep[facility] (1 source) Sulfamethoxazole / Trimethoprim Drug Allergy [facility] (1 source) Amoxicillin Drug Allergy 05-07-20 [facility] Rep[facility] (1 source) Clavulanate Drug Allergy 05-07-20 [facility] Repository (1 source) Penicillins Drug allergy (disorder) 05-07-20 [facility] Repository (1 source) Sulfamethoxazole Drug Allergy 05-07-20 [facility] Rep[facility] (1 source) terbinafine Drug Allergy 05-07-20 [facility] Rep[facility] (1 source) Trimethoprim Drug Allergy 05-07-20 [facility]ository Medications Current Medications Medication Drug Class(es) Dates Sig (Normalized) Sig (Original) Mv-Mn 444-Yi-Al7-Dha-Epa-F sherry 180 mcg-35 mg- 25 mg-5 mg tablet,chewable (12 sources) Start: 06-01-2022 Mv-Mn 091-Bv-Lj2-Dha-Epa- Fish 180 mcg-35 mg- 25 mg-5 mg tablet,chewable Active 1 {tbl} PO DAILY June 01, 2022 12:00am Check with primary doctor Complies with drug therapy Start: 06-01-2022 Mv-Mn 110-Fa-O f0-Lev-Nvu-Fish 180 mcg-35 mg- 25 mg-5 mg tablet,chewable Active 1 {tbl} PO DAILY June 01, 2022 12:00am Check with primary doctor Start: 06-01-2022 Mv-Mn 110-Fa-O b3-Yii-Sgc-Fish 180 mcg-35 mg- 25 mg-5 mg tablet,chewable [...] 2022 1:00am August 07, 2022 1:04am Pnv No.125-Hg-Xr3-Dha-Epa-Fi sh (8 sources) Start: 06-01-2022 take 1 tablet by mouth once daily Pnv No.924-Vo-Zb7-Ouz-Ckc-Iibq Active 1 TABLET PO DAILY May 31, 2022 11:00pm Start: 06-01-2022 take 1 tablet by nelsy th once daily Pnv No.886-Wk-Qi0-Qxq-Xtn-Uake Active 1 TABLET PO DAILY June 01, 2022 12:00am Start: 06-01-2022 Pnv No.178-Fa- Yq5-Ago-Uee-Fish Active TABLET PO May 31, 2022 11:00pm Start: 06-01-2022 Pnv No.178-Fa- Dc8-Dgv-Yds-Fish Active TABLET PO June 01, 2022 12:00am Pnv No.947-Jf-Ot0-Cgx-Ndl-Gkbu 180 mcg-35 mg- 25 mg-5 mg tablet,chewable (1 source) Start: 06-01-2022 Pnv No.324-Ki-Dm3-Xwm-Ktu-Zujs 180 mcg-35 mg- 25 mg-5 mg tablet,chewable [...] for postdates. 1 .5/80/-3pitocin and saenz bulb ENUM5H3, PARAG 01/16/23 , boy Cm Spouse Sudheer [...] Test Name Value Interpretation Reference Range Facility [facility] Office Visit Reporton 05-07-2025 Sn[facility] Office Visit Report [facility] [address] [place] [address], [address] [place] [address] OFFICE VISIT Date of Service: 05/07/25 MR#: [id number] Acct: [id number] Name: JIMMY ATWOOD Rep #: [id number] : 1995 Provider: Dr. 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 Date Name GA/Weeks Outcome Route Bth Weight [facility] Cm 41 live - [facility] H[facility] 39wk ob Details: JIMMY ATWOOD is [...] with renato (more content not included)... Normal [facility] Laboratory - Chemistry and C hemistry - challengeOrdered By: Manjula Goldman on 04-30-2025 Glucose Ql (U) Negative [facility] Laboratory - UrinalysisOrder ed By: Manjula Goldman on 04-30-2025 Protein Ql (U) Negative [facility] Sn[facility] D[facility] Office Visit Reporton 04-30-2025 Snuff Drier Office Visit Report [facility] [address] 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 Date Name GA/Weeks Outcome Route Bth Weight Gen Labor Lgth Anesthesia Del Locatn Provider FOB 01/23/23 Cm 41 live - full term 9#1oz Male epidural [facility] HPI 38wk ob Details: JIMMY ATWOOD is [...] some appt (more content not included)... Normal [facility] Laboratory - Chemistry and C hemistry - challengeOrdered By: Nelly Gay on 04-24-2025 Glucose Ql (U) Negative [facility] Laboratory - UrinalysisOrder ed By: Nelly Gay on 04-24-2025 Protein Ql (U) Negative [facility] Snuff Drier Office Visit Reporton 04-24-2025 Snuff Drier Office Visit Report [facility] [address], [address] [place] [address] OFFICE VISIT Date of Service: 04/24/25 MR#: [id number] Acct: [id number] Name: JIMMY ATWOOD Rep #: [id number] : 1995 Provider: Dr. 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 Date Name GA/Weeks Outcome Route Bth Weight Gen Labor Lgth Anesthesia Del Locatn Provider FOB 01/23/23 Cm 41 live - full term 9#1oz Male epidural [facility] HPI 37wk ob Details: JIMMY ATWOOD is [...] dates. Dec (more content not included)... Normal [facility] Rule out Beta Strep (Grp. B) on 04-20-2025 CICI Streptococcus agalactiae (B) Amount Growth Growth Streptococcus agalactiae (B): REACTION Ampicillin Islt MACK <=0.25 cefTRIAXone Islt MACK <=0.12 S Clindamycin Islt MACK >=1 R Clindamycin.induced Susc Islt NEG Linezolid Islt MACK <=2 S Vancomycin Islt MACK 0.5 S Normal [facility] Comment on above: Performed By: #### M [id number] #### [facility] Laboratory [facility] [place], [address] Laboratory - Chemistry and C hemistry - challengeOrdered By: Carline Bolden on 04-16-2025 Glucose Ql (U) Negative [facility] Laboratory - UrinalysisOrder ed By: Carline Kimi on 04-16-2025 Protein Ql (U) Negative [facility] Snuff Drier Office Visit Reporton 04-16-2025 Snuff Drier Office Visit Report [facility], [address] [place] [address] OFFICE VISIT Date of Service: 04/16/25 MR#: [id number] Acct: [id number] Name: JIMMY ATWOOD Rep #: [id number] : 1995 Provider: Dr. 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 Date Name GA/Weeks Outcome Route Bth Weight Gen Labor Lgth Anesthesia Del Locatn Provider FOB 01/23/23 Cm 41 live - full term 9#1oz Male epidural [facility] HPI 36wk ob Details: JIMMY ATWOOD is [...] -???-???-???-???-???-? ??-???-???-???-??? (more content not included)... Normal [facility] Screening beta-hemolytic Str eptococcus cultureOrdered By: Carline Bolden on 04-16-2025 Beta-hemolytic Streptococcus culture Streptococcus agalactiae (B) Abnormal [facility] Laboratory - Chemistry and C hemistry - challengeOrdered By: Tania Gutiérrez on 03-31-2025 Glucose Ql (U) Negative [facility] Laboratory - UrinalysisOrder ed By: Tania Brock on 03-31-2025 Protein Ql (U) Negative [facility] Snuff Drier Office Visit Reporton 03-31-2025 Snuff Drier Office Visit Report [facility], [address] [place] [address] OFFICE VISIT Date of Service: 03/31/25 MR#: [id number] Acct: [id number] Name: JIMMY ATWOOD Rep #: [id number] : 1995 Provider: MANPREET byrd Age/Sex: 29/F [place] [facility] [place]: Signed Intake Vital Signs 03/07/25 16:14 03/23/25 12:58 03/31/25 15:44 Height 5 ft 7 in 5 ft 7 in 5 ft 7 in Weight: 183 lb BMI 28.6 BP 118/71 Intake Visit Reasons: 34wk ob Analytics Consultant Required: No Is patient in pain?: No [...] 1 current occupational status: employed 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 Date Name GA/Weeks Outcome Route Bth Weight Gen Labor Lgth Anesthesia Del Locatn Provider FOB 01/23/23 Cm 41 live - full term 9#1oz Male epidural [facility] Narcisa Hutchins Sudheer HPI 34wk ob [...] KW- C (more content not included)... Normal [facility] Emergency Department Summary on 03-23-2025 Emergency Department Summary [facility] Medical Records Department [address] [place] [address] Emergency Department Summary 03/23/25 MR#: [id number] Acct: [id number] Name: JIMMY ATWOOD Rep #: [id number] : 1995 29 From: Lucius Combs DO [...] in the same eye in the past. 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 Normal [facility] Laboratory - Chemistry and C hemistry - challengeOrdered By: Manjula Goldman on 03-19-2025 Glucose Ql (U) Negative [facility] Laboratory - UrinalysisOrder ed By: Manjula Goldman on 03-19-2025 Protein Ql (U) Trace [facility] Snuff Drier Office Visit Reporton 03-19-2025 Snuff Drier Office Visit Report [facility], [address] [place] [address] OFFICE VISIT Date of Service: 03/19/25 MR#: [id number] Acct: [id number] Name: JIMMY ATWOOD Rep #: [id number] : 1995 Provider: QUITA Tanner ams Age/Sex: 29/F Location: [facility] Status: Signed Intake Vital Signs 01/29/25 15:15 [...] 1 current occupational status: employed 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 Date Name GA/Weeks Outcome Route Bth Weight Infant Gen Labor Lgth Anesthesia Del Locatn Provider FOB 01/23/23 Cm 41 live - full term 9#1oz Male epidural [facility] latia Willard HPI 32 wk ob [...] Declines NIPT. would like some appts in [place]. 11/01/24 (more content not included)... Normal [facility] Snuff Drier Office Visit Report [facility] [address], [address] [place] [address] OFFICE VISIT Date of Service: 03/19/25 MR#: [id number] Acct: [id number] Name: JIMMY ATWOOD Rep #: [id number] : 1995 Provider: QUITA Tanner ams Age/Sex: 29/F Location: [facility] Status: Signed Intake Vital Signs 01/29/25 15:15 03/07/25 16:14 03/19/25 12:49 03/19/25 12:51 03/19/25 12:54 Height 5 ft 7 in 5 ft 7 in 5 ft 7 in 5 ft 7 in 5 ft 7 in Weight: 183 lb BMI 28.6 BP 104/67 Intake Visit Reasons: 32 wk ob Analytics Consultant Required: No Is patient in pain?: No [...] 1 current occupational status: employed 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 Date Name GA/Weeks Outcome Route Bth Weight Infant Gen Labor Lgth Anesthesia Del Locatn Provider FOB 01/23/23 Cm 41 live - full term 9#1oz Male epidural [facility] Narcisa Hutchins Sudheer HPI 32 wk [...] dates. Mims (more content not included)... Normal [facility] Laboratory - Chemistry and C hemistry - challengeOrdered By: Nelly Gay on 03-07-2025 Glucose Ql (U) Negative [facility] Laboratory - UrinalysisOrder ed By: Nelly Gay on 03-07-2025 Protein Ql (U) Negative [facility] Snuff Drier Office Visit Reporton 03-07-2025 Snuff Drier Office Visit Report [facility] [address], [address] [place] [address] OFFICE VISIT Date of Service: 03/07/25 MR#: [id number] Acct: [id number] Name: JIMMY ATWOOD Rep #: [id number] : 1995 Provider: Dr. 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 Date Name GA/Weeks Outcome Route Bth Weight Infant Gen Labor Lgth Anesthesia Del Locatn Provider FOB 01/23/23 Cm 41 live - full term 9#1oz Male epidural [facility] Narcisa Willard HPI 30 wk ob [...] 171 -???-? (more content not included)... Normal [facility] - Chemistry and C hemistry - challengeOrdered By: Manjula Goldman on 02-19-2025 Glucose Ql (U) Negative [facility] - UrinalysisOrder ed By: Manjula Goldman on 02-19-2025 Protein Ql (U) Negative [facility] Snuff Drier Office Visit Reporton 02-19-2025 Snuff Drier Office Visit Report [address], [address] [place] [address] OFFICE VISIT Date of Service: 02/19/25 MR#: [id number] Acct: [id number] Name: JIMMY ATWOOD Rep #: [id number] : 1995 Provider: QUITA Tanner ams Age/Sex: 29/F Location: [facility] [place] Status: Signed with Addenda ADDENDUM by Tessa Hearn on 02/19/25 at 1154 Office Procedure Documentation entered by Tessa Hearn 02/19/25 11:54: Immunizations Boostrix Tdap 2.5 Lf unit-8 mcg-5 Lf/0.5 mL intramuscular syringe Performing Provider: Manjula Goldman CNM Performing Location: [facility] Administered by: Tessa Hearn on 02/19/25 11:52 Dose Route Admin Location Dispensed Lot Number Expiration Date [facility] Man ufacturer 0.5 mL IM Right Deltoid 0.5 mL [id number] 10/19/26 66936-023-16 [employer] VIS Given Date VIS Provided [...] 111/71 Intake Visit Reasons: 28 wk ob Analytics Consultant Required: No Is patient in pain?: No [...] 1 current occupational status: employed 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 Date Name GA/Weeks Outcome Route Bth Weight Gen Labor Lgth Anesthesia Del Locatn Provider FOB 01/23/23 Cm 41 live - full term 9#1oz Male epidural [facility] Narcisa Willard HPI 28 wk ob [...] Prot -? (more content not included)... Normal [facility] Lead, Blood Adult 16+yrson 0 01-31-2025 LEAD,BLD ADULT < 1.0 Normal 0.0-3.4 [facility] Comment on above: Order Comment: Test( s) 575268-Merw, Blood (Adult) was developed and its performance characteristics determined by [facility]. It has not been cleared or approved by the Food and Drug Administration. Result Comment: Test ing performed by Inductively coupled plasma/Mass Spectrometry. Analysis by inductively coupled plasma/mass spectrometry (ICP/MS) Environmental Exposure: WHO Recommendation <5.0 Occupational Exposure: OSHA Lead Std 40.0 JAMAR 30.0 Detection Limit = 1.0 Performed at: [address] [id number] Radiagraph Operator: Guzman Darnell PhD, Phone: [phone] Performed By: #### L 4217.1084 #### [facility] [address] [place], [address] Absolute lymphocyte countOrd ered By: Manjula Goldman on 01-29-2025 Lymphocytes Auto (Unsp spec) [#/Vol] 1.80 10*3/uL 0.83-4.51 [facility] Absolute neutrophil countOrd ered By: Manjula Goldman on 01-29-2025 Neutrophils (Bld) [#/Vol] 8.3 10*3/uL High 2.0-7.7 [facility] Automated lymphocyte count a s percentage of total leukocytesOrdered By: Manjula Jones on 01-29-2025 Lymphocytes/100 WBC Auto (Unsp spec) 16.1 % Low 19-41 [facility] Basophil percentageOrdered B y: Manjula Goldman on 01-29-2025 Basophils/100 WBC (Bld) 0.4 % 0-1 [facility] CBC W/Diff, Automatedon 01-19-2024 Absolute Lymph 1.80 X10 3/uL Normal 0.83-4.51 [facility] Comment on above: Performed By: #### L 3890.6006, L100.0100, L506.0400, L509.8002, L501.9520, L501.0250 #### [facility] [address] [place], [address] Absolute Neut 8.3 X10 3/uL High 2.0-7.7 [facility] Comment on above: Performed By: #### L 3890.6006, L100.0100, L506.0400, L509.8002, L501.9520, L501.0250 #### [facility] [address] [place], [address] Basophils/100 WBC (Bld) 0.4 % Normal 0-1 [facility] Comment on above: Performed By: #### L 3890.6006, L100.0100, L506.0400, L509.8002, L501.9520, L501.0250 #### [facility] [address] [place], [address] Eosinophils/100 WBC (Bld) 1.1 % Normal 0-5 [facility] Comment on above: Performed By: #### L 3890.6006, L100.0100, L506.0400, L509.8002, L501.9520, L501.0250 #### [facility] [address] [place], [address] Erythrocyte distribution width (RBC) [Ratio] 13.2 % Normal 11.6-14.6 [facility] Comment on above: Performed By: #### L 3890.6006, L100.0100, L506.0400, L509.8002, L501.9520, L501.0250 #### [facility] [address] [place], [address] Hematocrit (Bld) [Volume fraction] 31.4 % Low 37-47 [facility] Comment on above: Performed By: #### L 3890.6006, L100.0100, L506.0400, L509.8002, L501.9520, L501.0250 #### [facility] [address] [place], [address] Hemoglobin (Bld) [Mass/Vol] 10.9 g/dL Low 12.0-15.0 [facility] Comment on above: Performed By: #### L 3890.6006, L100.0100, L506.0400, L509.8002, L501.9520, L501.0250 #### [facility] [address] [place], [address] IG% 1.300 High 0.0-0.9 [facility] Comment on above: Result Comment: IG% - Immature Granulocytes (promyelocytes, myelocytes and metamyelocytes) > 1% indicates that a LEFT SHIFT is Present. Performed By: #### L 3890.6006, L100.0100, L506.0400, L509.8002, L501.9520, L501.0250 #### [facility] [address] [place], [address] Lymphocytes/100 WBC (Bld) 16.1 % Low 19-41 [facility] Comment on above: Performed By: #### L 3890.6006, L100.0100, L506.0400, L509.8002, L501.9520, L501.0250 #### [facility] [address] [place], [address] MCH (RBC) [Entitic mass] 32.9 pg High 27.0-32.0 [facility] Comment on above: Performed By: #### L 3890.6006, L100.0100, L506.0400, L509.8002, L501.9520, L501.0250 #### [facility] [address] [place], [address] MCHC (RBC) [Mass/Vol] 34.7 g/dL Normal 32-36 [facility] Comment on above: Performed By: #### L 3890.6006, L100.0100, L506.0400, L509.8002, L501.9520, L501.0250 #### [facility] [address] [place], [address] MCV (RBC) [Entitic vol] 94.9 fL Normal 81-99 [facility] Comment on above: Performed By: #### L 3890.6006, L100.0100, L506.0400, L509.8002, L501.9520, L501.0250 #### [facility] [address] [place], [address] Monocytes/100 WBC (Bld) 7.2 % Normal 0-10 [facility] Comment on above: Performed By: #### L 3890.6006, L100.0100, L506.0400, L509.8002, L501.9520, L501.0250 #### [facility] [address] [place], [address] Neutrophils/100 WBC (Bld) 73.9 % High 47-70 [facility] Comment on above: Performed By: #### L 3890.6006, L100.0100, L506.0400, L509.8002, L501.9520, L501.0250 #### [facility] [address] [place], [address] Nucleated RBC (Bld) [#/Vol] 0 10*3/uL Normal 0-5 [facility] Comment on above: Performed By: #### L 3890.6006, L100.0100, L506.0400, L509.8002, L501.9520, L501.0250 #### [facility] [address] [place], [address] Platelet mean volume (Bld) [Entitic vol] 9.7 fL Normal 6.2-12.0 [facility] Comment on above: Performed By: #### L 3890.6006, L100.0100, L506.0400, L509.8002, L501.9520, L501.0250 #### [facility] [address] [place], [address] Platelets (Bld) [#/Vol] 375 10*3/uL Normal 150-450 [facility] Comment on above: Performed By: #### L 3890.6006, L100.0100, L506.0400, L509.8002, L501.9520, L501.0250 #### [facility] [address] [place], [address] RBC (Bld) [#/Vol] 3.31 10*6/uL Low 4.2-5.4 [facility] Comment on above: Performed By: #### L 3890.6006, L100.0100, L506.0400, L509.8002, L501.9520, L501.0250 #### [facility] [address] [place], [address] RDW SD 45.6 fl High 35.1-43.9 [facility] Comment on above: Performed By: #### L 3890.6006, L100.0100, L506.0400, L509.8002, L501.9520, L501.0250 #### [facility] [address] [place], [address] WBC (Bld) [#/Vol] 11.2 10*3/uL High 4.4-11.0 [facility] Comment on above: Performed By: #### L 3890.6006, L100.0100, L506.0400, L509.8002, L501.9520, L501.0250 #### [facility] [address] [place], [address] Eosinophil percentageOrdered By: Manjula Goldman on 01-29-2025 Eosinophils/100 WBC (Bld) 1.1 % 0-5 [facility] Erythrocyte distribution wid th ratioOrdered By: Manjula Goldman on 01-29-2025 Erythrocyte distribution width (RBC) [Ratio] 13.2 % 11.6-14.6 [facility] Erythrocyte distribution wid th standard deviationOrdered By: Manjula Goldman on 01-29-2025 Erythrocyte distribution width (RBC) [Ratio] 45.6 fl High 35.1-43.9 [facility] Glucose Challenge Gest 1H 50 bronwyn 01-29-2025 GLU GEST 50g 1H 116 mg/dL Normal 70-140 [facility] Comment on above: Performed By: #### L 3890.6006, L100.0100, L506.0400, L509.8002, L501.9520, L501.0250 #### [facility] [address] [place], [address] Glucose measurement at 2 tatum rs post-dose gestational glucose tolerance testOrdered By: Manjula Goldman on 01-29-2025 Glucose [Mass/Vol] 116 mg/dL 70-140 [facility] HIVon 01-29-2025 HIV Non-Reactive Normal Nonreactive [facility] Comment on above: Result Comment: Non- Reactive Reactive Repeatedly reactive samples must be confirmed according to CDC recommended confirmatory algorithms. The subresults for either HIVAG or AHIV can be used as an aid in the selection of the confirmation algorithm for reactive samples. Send out specimens with Reactive results to [facility] for confirmation. Order the HIV antibody detection and differentiation: lc#[id number] Performed By: #### L 3890.6006, L100.0100, L506.0400, L509.8002, L501.9520, L501.0250 ####[facility] [id number] [place], [address] Hematocrit Auto (Bld) [Volum e fraction]Ordered By: Manjula Goldman on 01-29-2025 Hematocrit (Bld) [Volume fraction] 31.4 % Low 37-47 [facility] Hemoglobin measurementOrdere d By: Manjula Goldman on 01-29-2025 Hemoglobin (Bld) [Mass/Vol] 10.9 g/dL Low 12.0-15.0 [facility] Immature granulocytes/100 WB C Auto (Bld)Ordered By: Manjula Goldman on 01-29-2025 Immature granulocytes/100 WBC (Bld) 1.300 % High 0.0-0.9 [facility] Comment on above: IG% - Immature Granu locytes (promyelocytes, myelocytes and metamyelocytes) > 1% indicates that a LEFT SHIFT is Present. Laboratory - Chemistry and C hemistry - challengeOrdered By: Carline Bolden on 01-29-2025 Glucose Ql (U) Negative [facility] - UrinalysisOrder ed By: Carline Bolden on 01-29-2025 Protein Ql (U) Negative [facility] MCV (mean corpuscular volume ) determinationOrdered By: Manjula Goldman on 01-29-2025 MCV (RBC) [Entitic vol] 94.9 fL 81-99 [facility] Mean corpuscular hemoglobin (MCH) determinationOrdered By: Manjula Goldman on 01-29-2025 MCH (RBC) [Entitic mass] 32.9 pg High 27.0-32.0 [facility] Mean corpuscular hemoglobin concentration (MCHC) determinationOrdered By: Manjula Goldman on 01-29-2025 MCHC (RBC) [Mass/Vol] 34.7 g/dL 32-36 [facility] Mean platelet volume determi nationOrdered By: Manjula Goldman on 01-29-2025 Platelet mean volume (Bld) [Entitic vol] 9.7 fL 6.2-12.0 [facility] Monocyte percentageOrdered B y: Manjula Goldman on 01-29-2025 Monocytes/100 WBC (Bld) 7.2 % 0-10 [facility] Neutrophil percentageOrdered By: Manjula Goldman on 01-29-2025 Neutrophils/100 WBC (Bld) 73.9 % High 47-70 [facility] No Panel InformationOrdered By: Manjula Goldman on 01-29-2025 HIV (1&2) Antibody Non-Reactive Nonreactive [facility] Comment on above: Non-ReactiveReactive Repeatedly reactive samples must be confirmed according to CDC recommended confirmatory algorithms. The subresults for either HIVAG or AHIV can be used as an aid in the selection of the confirmation algorithm for reactive samples.Send out specimens with Reactive results to [facility] for confirmation.Order the HIV antibody detection and differentiation: #[id number] Nucleated red blood cell per centageOrdered By: Manjula Goldman on 01-29-2025 Nucleated RBC/100 WBC (Bld) [Ratio] 0 % 0-5 [facility] Snuff Drier Office Visit Reporton 01-29-2025 Snuff Drier Office Visit Report [facility] [address], [address] [place] [address] OFFICE VISIT Date of Service: 01/29/25 MR#: [id number] Acct: [id number] Name: JIMMY ATWOOD Rep #: [id number] : 1995 Provider: Dr. 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 Normal [facility] Platelet countOrdered By: Lasha Goldman on 01-29-2025 Platelets (Bld) [#/Vol] 375 10*3/uL 150-450 [facility] RBC Auto (Bld) [#/Vol]Ordere d By: Manjula Goldman on 01-29-2025 RBC (Bld) [#/Vol] 3.31 10*6/uL Low 4.2-5.4 [facility] Syphilis Antibodieson 2024 Syphilis Abs Non-Reactive Normal Nonreactive [facility] Comment on above: Performed By: #### L 3890.6006, L100.0100, L506.0400, L509.8002, L501.9520, L501.0250 ####[facility] [address] [place], [address] T4 Free Directon 01-29-2025 T4 FREE DIRECT 0.90 ng/dL Normal 0.76-1.46 [facility] Comment on above: Performed By: #### L 3890.6006, L100.0100, L506.0400, L509.8002, L501.9520, L501.0250 ####[facility] [address] [place], [place], [address] T4 freeOrdered By: Manjula mccloud on 01-29-2025 Free T4 [Mass/Vol] 0.90 ng/dL 0.76-1.46 [facility] TSH DL <= 0.005 mIU/L QnOrde red By: Manjula Goldman on 01-29-2025 TSH Qn 1.190 uIU/mL 0.300-4.200 [facility] Thyroid Stim Hormone (TSH)on 01-29-2025 TSH 1.190 uIU/mL Normal 0.300-4.200 [facility] Comment on above: Performed By: #### L 3890.6006, L100.0100, L506.0400, L509.8002, L501.9520, L501.0250 ####[facility] [address] [facility]. [place], [place], [address] White blood cell (WBC) count Ordered By: Manjula Goldman on 01-29-2025 WBC (Bld) [#/Vol] 11.2 10*3/uL High 4.4-11.0 [facility] Laboratory - Chemistry and C hemistry - challengeOrdered By: Manjula Goldman on 01-01-2025 Glucose Ql (U) Negative [facility] - UrinalysisOrder ed By: Manjula Goldman on 01-01-2025 Protein Ql (U) Negative [facility] Snuff Drier Office Visit Reporton 01-01-2025 Snuff Drier Office Visit Report 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 Date Name GA/Weeks Outcome Route Bth Weight Infant Gen Labor Lgth Anesthesia Del Locatn Provider FOB 01/23/23 Pabon 41 live - full term 9#[facility] Sudheer HPI 21 WEEK OB [...] Declines NIPT. (more content not included)... Normal [facility] - Chemistry and C hemistry - challengeOrdered By: Manjula Goldman on 11-27-2024 Glucose Ql (U) Negative [facility] - UrinalysisOrder ed By: Manjula Goldman on 11-27-2024 Protein Ql (U) Negative [facility] Snuff Drier Office Visit Reporton 11-27-2024 Snuff Drier Office Visit Report 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 [facility] Special Stain Group IIon Special Stain Group II ----- ---- Patient Age/Sex Location Account Attending Physician ---- JIMMY ATWOOD 29/F LABSPEC [id number] Dr. Ravinder Suazo MD ---- Specimen: [id number] Received: 11/26/24 Status: CARLOS Foley Num: [id number] Spec Type: Fluid Subm Dr: Dr. Ravinder [...] Submitted for cytology preparation. Mr 11/27/2024 CPT: 47036 Signed (signature on file) Dr. Lucinda Sutherland, 12/10/24 0852 ---- Normal [facility] Comment on above: Performed By: #### P SSII ####[facility] [address] [place], [place], [id number] Surgery Visit Reporton 11-26 Surgery Visit Report [facility] [address] [place], [place] [address] OFFICE VISIT Date of Service: 11/26/24 MR#: [id number] Acct: [id number] Name: JIMMY ATWOOD Rep #: [id number] : 1995 Provider: Dr. 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 Normal [facility] - Chemistry and C hemistry - challengeOrdered By: Carline Bolden on 11-01-2024 Glucose Ql (U) Negative [facility] - UrinalysisOrder ed By: Carline Bolden on 11-01-2024 Protein Ql (U) Negative [facility] Snuff Drier Office Visit Reporton 11-01-2024 Snuff Drier Office Visit Report [facility], [address] [place] [address] OFFICE VISIT Date of Service: 11/01/24 MR#: [id number] Acct: [id number] Name: JIMMY ATWOOD Rep #: [id number] : 1995 Provider: Dr. 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 Date Name GA/Weeks Outcome Route Bth Weight Infant Gen Labor Lgth Anesthesia Del Locatn Provider FOB 01/23/23 Pabon 41 live - full term 9#1oz Male epidural [facility] latia Hutchins Sudheer HPI 12 wk [...] -???-???-???-???-???-? ??-???-???-???-???- (more content not included)... Normal [facility] THYROID PEROXIDASE AB [CCL]o n 10-12-2024 TPO Antibody <3.0 Normal <5.6 [facility] Comment on above: Result Comment: Thyr oid Peroxidase Antibody test is used as an aid in diagnosis of autoimmune thyroid disease. [place] [address] Kahlil Lubin III, M.D. [id number] Performed By: #### 2 00584 #### [facility],[address] [place] [address] T4-FREE (FREE THYROXINE)on 0 10-11-2024 Free T4 [Mass/Vol] 1.08 ng/dL Normal 0.76 - 1.46 [facility] Comment on above: Result Comment: P otential of falsely elevated results when biotin concentrations are > 10 ng/mL. Performed By: #### 2 [id number] #### [facility],[address] [place], [place] [id number] THYROID PEROXIDASE ANTIBODYo n 10-11-2024 TPO Ab Qn [IU]/mL Normal <5.6 [facility] Comment on above: Order Comment: Speci men Type: BLOOD SPECIMEN Ordering Facility: [facility] Address: [address] [place] [address] Result Comment: Thyr oid Peroxidase Antibody test is used as an aid in diagnosis of autoimmune thyroid disease. Clinical correlation is required. Performed By: #### M ICRO #### [facility] CLIA [id number] [address] [place] [address] [place] TSHon 10-11-2024 TSH Qn 0.64 m[IU]/L Normal 0.35 - 3.74 [facility] Comment on above: Performed By: #### 2 [id number] #### [facility],[address] [place], [place] [id number] [place] THYROIDon 10-11-[address] [address] Patient: JIMMY ATWOOD Phone#: : 1995 Age: 29 Gender: F Pt. Type: Out Account: [id number] Location: 052 Ordering: YUDI MÉNDEZ Exam Date: 10/11/2024/13:09 Family Phys: Charge Code: 879466 Physician: Lanier Order #: [id number] Dose#: PROCEDURE: THYROID ULTRASOUND COMPARISON: None. INDICATIONS: [...] Mata MD on 10/11/2024 at 16:[address] [facility] PAP I-G w/rfx hrHPV-Aptimaon 10-09-2024 ADEQ Comment Normal . [facility] Comment on above: Order Comment: Speci men Comment: [id number] Comment: Source.............Cervix;EndocervixSpecimen Comment: Other..............Specimen Comment: No. of containers..01 ThinPrep Vial Result Comment: Sati sfactory for evaluation. No endocervical component is identified. Performed By: #### M 100.2200, L7000.1800, L7400.0353 ####[facility] [address] [place], [place], [id number] COMM . Normal . [facility] Comment on above: Order Comment: Speci men Comment: [id number] Comment: Source.............Cervix;EndocervixSpecimen Comment: Other..............Specimen Comment: No. of containers..01 ThinPrep Vial Performed By: #### M 100.2200, L7000.1800, L7400.0353 ####[facility] [address] [place], [place], [id number] COMMENT Comment Normal . [facility] Comment on above: Order Comment: Specivory men Comment: [id number] Comment: Source.............Cervix;EndocervixSpecimen Comment: Other..............Specimen Comment: No. of containers..01 ThinPrep Vial Result Comment: This liquid based ThinPrep(R) pap test was screened with the use of an image guided system. Performed By: #### M 100.2200, L7000.1800, L7400.0353 ####[facility] [address] [place], [place], [id number] DIAG Comment Normal . [facility] Comment on above: Order Comment: Speci men Comment: [id number] Comment: Source.............Cervix;EndocervixSpecimen Comment: Other..............Specimen Comment: No. of containers..01 ThinPrep Vial Result Comment: NEGA TIVE FOR INTRAEPITHELIAL LESION OR MALIGNANCY. Performed By: #### M 100.2200, L7000.1800, L7400.0353 ####[facility] [address] [place], [place], [address] HPV RFLX Comment Normal . [facility] Comment on above: Order Comment: Speci men Comment: [id number] Comment: Source.............Cervix;EndocervixSpecimen Comment: Other..............Specimen Comment: No. of containers..01 ThinPrep Vial Result Comment: The HPV DNA reflex criteria were not met with this specimen result therefore, no HPV testing was performed. Performed at: [address] [id number] Radiagraph Operator: Chayo Yi MD, Phone: [phone] Performed By: #### M 100.2200, L7000.1800, L7400.0353 ####[facility] [address] [place], [place], [id number] PAPSMR Comment Normal . [facility] Comment on above: Order Comment: Speci men Comment: [id number] Comment: Source.............Cervix;EndocervixSpecimen Comment: Other..............Specimen Comment: No. of [...] Performed By: #### M 100.2200, L7000.1800, L7400.0353 ####[facility] [address] [place], [place], [id number] PERFORM Comment Normal . [facility] Comment on above: Order Comment: Speci men Comment: [id number] Comment: Source.............Cervix;EndocervixSpecimen Comment: Other..............Specimen Comment: No. of containers..01 ThinPrep Vial Result Comment: Tunde Braun, Servicing Manager (ASCP) Performed By: #### M 100.2200, L7000.1800, L7400.0353 ####[facility] [address] [place], [address] HIV - WCHon 10-08-2024 HIV Non-Reactive Normal Nonreactive [facility] Comment on above: Performed By: #### L 3890.6005 ####[facility] [address] [place], [address] Chlamydia/GC JOSE J aptimaon CHLAMY,NUC ACID Negative Normal Negative [facility] Comment on above: Performed By: #### M 100.2200, L7000.1800, L7400.0353 ####[facility] [address] [place], [address] GC BY NUC ACID Negative Normal Negative [facility] Comment on above: Result Comment: Perf ormed at: =G - [facility] [address] [id number] Radiagraph Operator: Chayo Yi MD, Phone: [phone] Performed By: #### M 100.2200, L7000.1800, L7400.0353 ####[facility] [address] [place], [address] Urine Cultureon 10-05-2024 URC Culture exhibits no growth. Normal [facility] Comment on above: Performed By: #### M 100.2200, L7000.1800, L7400.0353 ####[facility] [address] [place], [address] Absolute lymphocyte countOrd ered By: Manjula Goldman on 10-04-2024 Lymphocytes Auto (Unsp spec) [#/Vol] 2.15 10*3/uL 0.83-4.51 [facility] Absolute neutrophil countOrd ered By: Manjula Goldman on 10-04-2024 Neutrophils (Bld) [#/Vol] 10.2 10*3/uL High 2.0-7.7 [facility] Automated lymphocyte count a s percentage of total leukocytesOrdered By: Manjula Goldman on 10-04-2024 Lymphocytes/100 WBC Auto (Unsp spec) 15.8 % Low 19-41 [facility] Basophil percentageOrdered B y: Manjula Goldman on 10-04-2024 Basophils/100 WBC (Bld) 0.4 % 0-1 [facility] CBC W/Diff, Automatedon 09-21 Absolute Lymph 2.15 X10 3/uL Normal 0.83-4.51 [facility] Comment on above: Performed By: #### L 3890.6100, L3890.6300, L100.0100, L509.8000, L509.4005, BTS ####[facility] [address] [place], [address] Absolute Neut 10.2 X10 3/uL High 2.0-7.7 [facility] Comment on above: Performed By: #### L 3890.6100, L3890.6300, L100.0100, L509.8000, L509.4005, BTS ####[facility] [address] [place], [address] Basophils/100 WBC (Bld) 0.4 % Normal 0-1 [facility] Comment on above: Performed By: #### L 3890.6100, L3890.6300, L100.0100, L509.8000, L509.4005, BTS ####[facility] [address] [place], [address] Eosinophils/100 WBC (Bld) 0.7 % Normal 0-5 [facility] Comment on above: Performed By: #### L 3890.6100, L3890.6300, L100.0100, L509.8000, L509.4005, BTS ####[facility] [address] [place], [address] Erythrocyte distribution width (RBC) [Ratio] 12.3 % Normal 11.6-14.6 [facility] Comment on above: Performed By: #### L 3890.6100, L3890.6300, L100.0100, L509.8000, L509.4005, BTS ####[facility] [address] [place], [address] Hematocrit (Bld) [Volume fraction] 36.7 % Low 37-47 [facility] Comment on above: Performed By: #### L 3890.6100, L3890.6300, L100.0100, L509.8000, L509.4005, BTS ####[facility] [address] [place], [address] Hemoglobin (Bld) [Mass/Vol] 12.6 g/dL Normal 12.0-15.0 [facility] Comment on above: Performed By: #### L 3890.6100, L3890.6300, L100.0100, L509.8000, L509.4005, BTS ####[facility] [address] [place], [address] IG% 0.700 Normal 0.0-0.9 [facility] Comment on above: Result Comment: IG% - Immature Granulocytes (promyelocytes, myelocytes and metamyelocytes) > 1% indicates that a LEFT SHIFT is Present. Performed By: #### L 3890.6100, L3890.6300, L100.0100, L509.8000, L509.4005, BTS ####[facility] [address] [place], [address] Lymphocytes/100 WBC (Bld) 15.8 % Low 19-41 [facility] Comment on above: Performed By: #### L 3890.6100, L3890.6300, L100.0100, L509.8000, L509.4005, BTS ####[facility] [address] [place], [address] MCH (RBC) [Entitic mass] 31.3 pg Normal 27.0-32.0 [facility] Comment on above: Performed By: #### L 3890.6100, L3890.6300, L100.0100, L509.8000, L509.4005, BTS ####[facility] [address] [place], [address] MCHC (RBC) [Mass/Vol] 34.3 g/dL Normal 32-36 [facility] Comment on above: Performed By: #### L 3890.6100, L3890.6300, L100.0100, L509.8000, L509.4005, BTS ####[facility] [address] [place], [address] MCV (RBC) [Entitic vol] 91.3 fL Normal 81-99 [facility] Comment on above: Performed By: #### L 3890.6100, L3890.6300, L100.0100, L509.8000, L509.4005, BTS ####[facility] [address] [place], [address] Monocytes/100 WBC (Bld) 7.4 % Normal 0-10 [facility] Comment on above: Performed By: #### L 3890.6100, L3890.6300, L100.0100, L509.8000, L509.4005, BTS ####[facility] [address] [place], [address] Neutrophils/100 WBC (Bld) 75.0 % High 47-70 [facility] Comment on above: Performed By: #### L 3890.6100, L3890.6300, L100.0100, L509.8000, L509.4005, BTS ####[facility] [address] [place], [address] Nucleated RBC (Bld) [#/Vol] 0 10*3/uL Normal 0-5 [facility] Comment on above: Performed By: #### L 3890.6100, L3890.6300, L100.0100, L509.8000, L509.4005, BTS ####[facility] [address] [place], [address] Platelet mean volume (Bld) [Entitic vol] 9.6 fL Normal 6.2-12.0 [facility] Comment on above: Performed By: #### L 3890.6100, L3890.6300, L100.0100, L509.8000, L509.4005, BTS ####[facility] [address] [place], [address] Platelets (Bld) [#/Vol] 389 10*3/uL Normal 150-450 [facility] Comment on above: Performed By: #### L 3890.6100, L3890.6300, L100.0100, L509.8000, L509.4005, BTS ####[facility] [address] [place], [address] RBC (Bld) [#/Vol] 4.02 10*6/uL Low 4.2-5.4 [facility] Comment on above: Performed By: #### L 3890.6100, L3890.6300, L100.0100, L509.8000, L509.4005, BTS ####[facility] [address] [place], [address] RDW SD 41.1 fl Normal 35.1-43.9 [facility] Comment on above: Performed By: #### L 3890.6100, L3890.6300, L100.0100, L509.8000, L509.4005, BTS ####[facility] [address] [place], [address] WBC (Bld) [#/Vol] 13.6 10*3/uL High 4.4-11.0 [facility] Comment on above: Performed By: #### L 3890.6100, L3890.6300, L100.0100, L509.8000, L509.4005, BTS ####[facility] [address] [place], [address] Cervical or vagninal specime n microscopic examination by cytology stain (reported asOrdered By: Manjula Goldman on 10-04-2024 Cytology report Cyto stain Doc (Cvx/Vag) Comment . [facility] Comment on above: The Pap smear is [...] JOSE J+probe Ql (Unsp spec) Negative Negative [facility] Eosinophil percentageOrdered By: Manjula Goldman on 10-04-2024 Eosinophils/100 WBC (Bld) 0.7 % 0-5 [facility] Erythrocyte distribution wid th ratioOrdered By: Manjula Goldman on 10-04-2024 Erythrocyte distribution width (RBC) [Ratio] 12.3 % 11.6-14.6 [facility] Erythrocyte distribution wid th standard deviationOrdered By: Manjula Goldman on 10-04-2024 Erythrocyte distribution width (RBC) [Ratio] 41.1 fl 35.1-43.9 [facility] HIV 1 and HIV-2 antibody ass ay with HIV-1 p24 antigen detectionOrdered By: Manjula Goldman on 10-04-2024 HIV 1+2 Ab+HIV1 p24 Ag IA Ql Non-Reactive Nonreactive [facility] Hematocrit Auto (Bld) [Volum e fraction]Ordered By: Manjula Goldman on 10-04-2024 Hematocrit (Bld) [Volume fraction] 36.7 % Low 37-47 [facility] Hemoglobin measurementOrdere d By: Manjula Goldman on 10-04-2024 Hemoglobin (Bld) [Mass/Vol] 12.6 g/dL 12.0-15.0 [facility] Hepatitis B Surface Antigeno n 10-04-2024 HEP B Surf Ag Non-Reactive Normal Nonreactive [facility] Comment on above: Order Comment: Reaso n for Exam: Performed By: #### L 3890.6100, L3890.6300, L100.0100, L509.8000, L509.4005, BTS ####[facility] [address] [facility] [place], [place], [id number] Hepatitis C Antibodyon 10-04 Hepatitis C AB Non-Reactive Normal Nonreactive [facility] Comment on above: Order Comment: Reaso n for Exam: Result Comment: Non Reactive: < 0.8 Equivocal: >/= 0.8 to < 1.0 Reactive: >/= 1.0 The CDC requires that a reactive/equivocal HCV antibody result be sent out for confirmation. HCV Quant by PCR testing. Performed By: #### L 3890.6100, L3890.6300, L100.0100, L509.8000, L509.4005, BTS ####[facility] [address] [facility] [place], [place], [id number] Immature granulocytes/100 WB C Auto (Bld)Ordered By: Manjula Goldman on 10-04-2024 Immature granulocytes/100 WBC (Bld) 0.700 % 0.0-0.9 [facility] Comment on above: IG% - Immature Granu locytes (promyelocytes, myelocytes and metamyelocytes) > 1% indicates that a LEFT SHIFT is Present. L509.8000on 10-04-2024 Syphilis Abs Non-Reactive Normal [facility] Comment on above: Order Comment: Reaso n for Exam: Performed By: #### L 3890.6100, L3890.6300, L100.0100, L509.8000, L509.4005, BTS ####[facility] [address] [place], [address] Laboratory - CytologyOrdered By: Manjula Goldman on 10-04-2024 Filter Machine Operator Cyto stain Nom (Cvx/Vag) [ID] Comment . [facility] Comment on above: Margarita Manzo-Ab crook, Servicing Manager (ASCP) Laboratory - Miscellaneous t estsOrdered By: Manjula Goldman on 10-04-2024 Service comment (Unsp spec) [Interp] . . [facility] MCV (mean corpuscular volume ) determinationOrdered By: Manjula Goldman on 10-04-2024 MCV (RBC) [Entitic vol] 91.3 fL 81-99 [facility] Mean corpuscular hemoglobin (MCH) determinationOrdered By: Manjula Goldman on 10-04-2024 MCH (RBC) [Entitic mass] 31.3 pg 27.0-32.0 [facility] Mean corpuscular hemoglobin concentration (MCHC) determinationOrdered By: Manjula Goldman on 10-04-2024 MCHC (RBC) [Mass/Vol] 34.3 g/dL 32-36 [facility] Mean platelet volume determi nationOrdered By: Manjula Goldman on 10-04-2024 Platelet mean volume (Bld) [Entitic vol] 9.6 fL 6.2-12.0 [facility] Monocyte percentageOrdered B y: Manjula Goldman on 10-04-2024 Monocytes/100 WBC (Bld) 7.4 % 0-10 [facility] Neisseria gonorrhoeae nuclei c acid detection by amplified probe techniqueOrdered By: Manjula Goldman on 10-04-2024 N. gonorrhoeae DNA JOSE J+probe Ql (Unsp spec) Negative Negative [facility] Comment on above: Performed at: =[address] [id number] Director: Chayo Yi MD, Phone: [phone] Neutrophil percentageOrdered By: Manjula Goldman on 10-04-2024 Neutrophils/100 WBC (Bld) 75.0 % High 47-70 [facility] No Panel InformationOrdered By: Manjula Goldman on 10-04-2024 Pap Smear Specimen Adequacy Comment . [facility] Comment on above: Satisfactory for neetu luation. No endocervical component is identified. Nucleated red blood cell per centageOrdered By: Manjula Goldman on 10-04-2024 Nucleated RBC/100 WBC (Bld) [Ratio] 0 % 0-5 [facility] Snuff Drier Office Visit Reporton 10-04-2024 Snuff Drier Office Visit Report [facility] [address], [address] [place] [address] OFFICE VISIT Date of Service: 10/04/24 MR#: [id number] Acct: [id number] Name: JIMMY ATWOOD Rep #: [id number] 2 : 1995 Provider: QUITA Tanner ams Age/Sex: 29/F [place] [facility] [place]: Signed Intake Vital Signs 03/06/23 11:36 [...] No current occupational status: employed 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 Date Name GA/Weeks Outcome Route Bth Weight Infant Gen Labor Lgth Anesthesia Del Locatn Provider FOB 01/23/23 Cm 41 live - full term 9#1oz Male epidural [facility] Narcisa Hutchins Sudheer HPI NOB LMP [...] -???- 171 (more content not included)... Normal [facility] Platelet countOrdered By: Lasha Goldman on 10-04-2024 Platelets (Bld) [#/Vol] 389 10*3/uL 150-450 [facility] RBC Auto (Bld) [#/Vol]Ordere d By: Manjula Goldman on 10-04-2024 RBC (Bld) [#/Vol] 4.02 10*6/uL Low 4.2-5.4 [facility] Rubella IgGon 10-04-2024 Rubella IgG Reactive Normal Nonreactive [facility] Comment on above: Order Comment: Reaso n for Exam: Result Comment: Anti body Results Interpretation of Immune Status Non Reactive Presumed Non-Immune Equivocal Equivocal Reactive Presumed Immune Performed By: #### L 3890.6100, L3890.6300, L100.0100, L509.8000, L509.4005, BTS ####[facility] [address] [place], [address] Serum Treponema species anti body detectionOrdered By: Manjula Goldman on 10-04-2024 Treponema sp Ab Ql (S) Non-Reactive [facility] Type AND Screenon 10-04-2024 Ab SCREEN GEL Negative Normal [facility] Comment on above: Order Comment: PN Performed By: #### L 3890.6100, L3890.6300, L100.0100, L509.8000, L509.4005, BTS ####[facility] [address] [place], [address] ABO and Rh group Nom (Bld) Blood group O Rh(D) positive Normal [facility] Comment on above: Order Comment: PN Performed By: #### L 3890.6100, L3890.6300, L100.0100, L509.8000, L509.4005, BTS ####[facility] [address] [place], [address] Urine cultureOrdered By: Jared Goldman on 10-04-2024 Bacteria identified Cx Nom (U) Culture exhibits no growth. [facility] White blood cell (WBC) count Ordered By: Manjula Goldman on 10-04-2024 WBC (Bld) [#/Vol] 13.6 10*3/uL High 4.4-11.0 [facility] Absolute lymphocyte countOrd ered By: Roxannlinda Michaels on 06-29-2023 Lymphocytes Auto (Unsp spec) [#/Vol] 2.73 10*3/uL 0.83-4.51 [facility] Basophil percentageOrdered B y: Roxann Michaels on 06-29-2023 Basophils/100 WBC (Bld) 1.1 % 0-1 [facility] Bilirubin [Mass/Vol] 1.50 mg/dL 0.20-1.00 [facility] Comment on above: For patients on eltr ombopag therapy, use of Dimension [place] TBIL is not recommended. Chloride [Moles/Vol] 106 mmol/L 98-107 [facility] Eosinophils/100 WBC (Bld) 5.4 % 0-5 [facility] Glucose [Mass/Vol] 89 mg/dL 74-106 [facility] Neutrophils (Bld) [#/Vol] 3.4 10*3/uL 2.0-7.7 [facility] Neutrophils/100 WBC (Bld) 46.9 % 47-70 [facility] Potassium [Moles/Vol] 3.6 mmol/L 3.5-5.1 [facility] Protein [Mass/Vol] 7.4 g/dL 6.4-8.2 [facility] Sodium [Moles/Vol] 140 mmol/L 136-145 [facility] WBC (Bld) [#/Vol] 7.2 10*3/uL 4.4-11.0 [facility] Blood erythrocytes count (nu mber/volume)Ordered By: Roxann Michaels on 06-29-2023 RBC (Bld) [#/Vol] 4.40 10*6/uL 4.2-5.4 [facility] Blood hemoglobin measurement (mass/volume)Ordered By: Roxann Michaels on 06-29-2023 Hemoglobin (Bld) [Mass/Vol] 13.3 g/dL 12.0-15.0 [facility] Blood lymphocytes/100 leukoc ytesOrdered By: Roxann Michaels on 06-29-2023 Lymphocytes/100 WBC (Bld) 37.7 % 19-41 [facility] Blood monocytes/100 leukocyt esOrdered By: Roxann Michaels on 06-29-2023 Monocytes/100 WBC (Bld) 8.6 % 0-10 [facility] Blood platelet mean volumeOr dered By: Roxann Michaels on 06-29-2023 Platelet mean volume (Bld) [Entitic vol] 9.1 fL 6.2-12.0 [facility] Determination of erythrocyte mean corpuscular volume (MCV)Ordered By: Roxann Michaels on 06-29-2023 MCV (RBC) [Entitic vol] 90.7 fL 81-99 [facility] Hematocrit Auto (Bld) [Volum e fraction]Ordered By: Roxann Michaels on 06-29-2023 Hematocrit (Bld) [Volume fraction] 39.9 % 37-47 [facility] Laboratory - Chemistry and C hemistry - challengeOrdered By: Roxannlinda Michaels on 06-29-2023 ALP [Catalytic activity/Vol] 106 U/L 45-117 [facility] ALT [Catalytic activity/Vol] 18 U/L 13-56 [facility] CO2 [Moles/Vol] 28.0 mmol/L 21.0-32.0 [facility] Globulin (S) [Mass/Vol] 3.6 g/dL 2.2-4.2 [facility] T4 [Mass/Vol] 8.9 ug/dL 4.8-13.9 [facility] Urea nitrogen/Creatinine [Mass ratio] 17.8 mg/mg 10-20 [facility] Laboratory - Hematology and Cell countsOrdered By: Roxann Michaels on 06-29-2023 Erythrocyte distribution width (RBC) [Entitic vol] 40.7 fL 35.1-43.9 [facility] Erythrocyte distribution width (RBC) [Ratio] 12.2 % 11.6-14.6 [facility] Immature granulocytes/100 WBC (Bld) 0.300 % 0.0-0.9 [facility] Comment on above: IG% - Immature Granu locytes (promyelocytes, myelocytes and metamyelocytes) > 1% indicates that a LEFT SHIFT is Present. MCH (RBC) [Entitic mass] 30.2 pg 27.0-32.0 [facility] Nucleated RBC/100 WBC (Bld) [Ratio] 0 % 0-5 [facility] MCHC Auto (RBC) [Mass/Vol]Or dered By: Roxann Michaels on 06-29-2023 MCHC (RBC) [Mass/Vol] 33.3 g/dL 32-36 [facility] Mitotic spindle apparatus Ab [Titer] in Serum or PlasmaOrdered By: Roxann Michaels on 06-29-2023 Mitotic spindle apparatus Ab [Titer] Not Reportable [facility] No Panel InformationOrdered By: Roxann Michaels on 06-29-2023 SARAI Nuclear Membrane Pattern Not Reportable [facility] Estimated GFR (MDRD) Amer 122 mL/min >60 [facility] Comment on above: GFR Calc Estimated GFR (MDRD) Non-Af Amer 101 mL/min >60 [facility] Comment on above: Non- GFR Calc Thyroid Stimulating Hormone (TSH) 1.55 uIU/mL 0.358-3.74 [facility] Total Triiodothyronine 1.35 ng/mL 0.6-1.81 [facility] Platelets bldOrdered By: Ermias Michaels on 06-29-2023 Platelets (Bld) [#/Vol] 404 10*3/uL 150-450 [facility] Serum midbody antibody titer by immunofluorescenceOrdered By: Roxann Michaels on 06-29-2023 Midbody Ab IF (S) [Titer] Not Reportable [facility] Serum multiple nuclear dot p attern antinuclear IgG antibody (SARAI) titer by immunofluoOrdered By: Roxann Michaels on 06-29-2023 Multiple nuclear dots nuclear IgG pattern IF (S) [Titer] Not Reportable [facility] Serum neuronal nuclear antib arvin detection by immunofluorescenceOrdered By: Roxann Michaels on 06-29-2023 Neuronal nuclear Ab IF Ql (S) Not Reportable [facility] Serum nuclear antibody patte rn homogenous titer by immunofluorescenceOrdered By: Roxann Michaels on 06-29-2023 Homogenous nuclear Ab pattern IF (S) [Titer] Not Reportable [facility] Serum nuclear antibody titer by immunofluorescenceOrdered By: Roxann Michaels on 06-29-2023 Nuclear Ab IF (S) [Titer] Negative . [facility] Comment on above: Negative <1:80 Borde rline 1:80 Positive >1:80ICAP nomenclature: AC-0For more information about Hep-2 cell patterns useANApatterns.org, the official website for theInternational Consensus on Antinuclear Antibody (SARAI)Patterns (ICAP).Performed at: [facility] [address] [id number] Director: Guzman Darnell PhD, Phone: [phone] Serum or plasma albumin norma urement (mass/volume)Ordered By: Roxann Michaels on 06-29-2023 Albumin [Mass/Vol] 3.8 g/dL 3.2-5.0 [facility] Serum or plasma albumin/glob ulin mass ratioOrdered By: Roxann Michaels on 06-29-2023 Albumin/Globulin [Mass ratio] 1.1 {ratio} 0.9-2.4 [facility] Serum or plasma calcium norma urement (mass/volume)Ordered By: Roxann Michaels on 06-29-2023 Calcium [Mass/Vol] 9.0 mg/dL 8.5-10.1 [facility] Serum or plasma creatinine m easurement (mass/volume)Ordered By: Roxann Michaels on 06-29-2023 Creatinine [Mass/Vol] 0.73 mg/dL 0.55-1.02 [facility] Comment on above: The validity of the calculated GFR & GFRAA in patients over 70 years has not been determined. Clinical correlation is essential. Serum or plasma ferritin shekhar surement (mass/volume)Ordered By: Roxann Michaels on 06-29-2023 Ferritin [Mass/Vol] 25 ng/mL 8-252 [facility] Serum or plasma thyroperoxid ase antibody assay (units/volume)Ordered By: Roxann Michaels on 06-29-2023 TPO Ab Qn [IU]/mL 0-34 [facility] Comment on above: Performed at: [facility] [address] [id number] Director: Guzman Darnell PhD, Phone: [phone] Serum or plasma urea nitroge n measurement (mass/volume)Ordered By: Roxann Michaels on 06-29-2023 Urea nitrogen [Mass/Vol] 13 mg/dL 7-18 [facility] Serum proliferating cell nuc lear antigen (PCNA) antibody titer by immunofluorescenceOrdered By: Roxann Michaels on 06-29-2023 PCNA extractable nuclear Ab IF (S) [Titer] Not Reportable [facility] Serum speckled nuclear antib arvin pattern titerOrdered By: Roxann Michaels on 06-29-2023 Speckled nuclear Ab pattern (S) [Titer] Not Reportable [facility] Thin prep Papanicolaou smear with manual screeningOrdered By: Roxann Michaels on 06-29-2023 Thin prep Papanicolaou smear with manual screening 9 U/L 15-37 [facility] Thin prep Papanicolaou smear with manual screening 6 5-15 [facility] Thin prep Papanicolaou smear with manual screening Not Reportable [facility] Glucose Glucometer (BldC) [M ass/Vol]Ordered By: Payal Hutchins on 01-24-2023 Glucose [Mass/Vol] 86 mg/dL 74-106 [facility] Comment on above: MANAGEMENT OF PATIEN T CARE PER NURSING PROTOCOL Absolute lymphocyte countOrd ered By: Dr. Gay on 01-23-2023 Lymphocytes Auto (Unsp spec) [#/Vol] 1.56 10*3/uL 0.83-4.51 [facility] Basophil percentageOrdered B y: Dr. Gay on 01-23-2023 Basophils/100 WBC (Bld) 0.3 % 0-1 [facility] Eosinophils/100 WBC (Bld) 0.7 % 0-5 [facility] Neutrophils (Bld) [#/Vol] 6.4 10*3/uL 2.0-7.7 [facility] Neutrophils/100 WBC (Bld) 72.8 % 47-70 [facility] WBC (Bld) [#/Vol] 8.7 10*3/uL 4.4-11.0 [facility] Blood erythrocytes count (nu mber/volume)Ordered By: Dr. Gay on 01-23-2023 RBC (Bld) [#/Vol] 3.62 10*6/uL 4.2-5.4 [facility] Blood hemoglobin measurement (mass/volume)Ordered By: Dr. Gay on 01-23-2023 Hemoglobin (Bld) [Mass/Vol] 11.1 g/dL 12.0-15.0 [facility] Blood lymphocytes/100 leukoc ytesOrdered By: Dr. Gay on 01-23-2023 Lymphocytes/100 WBC (Bld) 17.9 % 19-41 [facility] Blood monocytes/100 leukocyt esOrdered By: Dr. Gay on 01-23-2023 Monocytes/100 WBC (Bld) 7.3 % 0-10 [facility] Blood platelet mean volumeOr dered By: Dr. Gay on 01-23-2023 Platelet mean volume (Bld) [Entitic vol] 11.0 fL 6.2-12.0 [facility] Determination of erythrocyte mean corpuscular volume (MCV)Ordered By: Dr. Gay on 01-23-2023 MCV (RBC) [Entitic vol] 92.8 fL 81-99 [facility] Hematocrit Auto (Bld) [Volum e fraction]Ordered By: Dr. Gay on 01-23-2023 Hematocrit (Bld) [Volume fraction] 33.6 % 37-47 [facility] Laboratory - Hematology and Cell countsOrdered By: Dr. Gay on 01-23-2023 Erythrocyte distribution width (RBC) [Entitic vol] 48.1 fL 35.1-43.9 [facility] Erythrocyte distribution width (RBC) [Ratio] 14.3 % 11.6-14.6 [facility] Immature granulocytes/100 WBC (Bld) 1.000 % 0.0-0.9 [facility] Comment on above: IG% - Immature Granu locytes (promyelocytes, myelocytes and metamyelocytes) > 1% indicates that a LEFT SHIFT is Present. MCH (RBC) [Entitic mass] 30.7 pg 27.0-32.0 [facility] Nucleated RBC/100 WBC (Bld) [Ratio] 0 % 0-5 [facility] MCHC Auto (RBC) [Mass/Vol]Or dered By: Dr. Gay on 01-23-2023 MCHC (RBC) [Mass/Vol] 33.0 g/dL 32-36 [facility] Platelets bldOrdered By: Dr. Gay on 01-23-2023 Platelets (Bld) [#/Vol] 251 10*3/uL 150-450 [facility] Serum Treponema species anti body detectionOrdered By: Dr. Gay on 01-23-2023 Treponema sp Ab Ql (S) Non-Reactive [facility] Laboratory - Chemistry and C hemistry - challengeon 01-18-2023 Glucose Ql (U) Negative [facility] Laboratory - Urinalysison Protein Ql (U) Trace [facility] Laboratory - Chemistry and C hemistry - challengeon 01-09-2023 Glucose Ql (U) Negative [facility] Laboratory - Urinalysison Protein Ql (U) Negative [facility] Laboratory - Chemistry and C hemistry - challengeon 01-03-2023 Glucose Ql (U) Negative [facility] Laboratory - Urinalysison Protein Ql (U) Negative [facility] Laboratory - Chemistry and C hemistry - challengeon 12-28-2022 Glucose Ql (U) Negative [facility] Laboratory - Urinalysison Protein Ql (U) Negative [facility] No Panel InformationOrdered By: Dr. Bolden on 12-24-2022 Group B Streptococcus Culture Streptococcus agalactiae (B) [facility] Laboratory - Chemistry and C hemistry - challengeon 12-20-2022 Glucose Ql (U) Negative [facility] Laboratory - Urinalysison Protein Ql (U) Negative [facility] Laboratory - Chemistry and C hemistry - challengeon 12-07-2022 Glucose Ql (U) Negative [facility] Laboratory - Urinalysison Protein Ql (U) Negative [facility] Absolute lymphocyte countOrd ered By: Tania Gutiérrez on 11-22-2022 Lymphocytes Auto (Unsp spec) [#/Vol] 1.74 10*3/uL 0.83-4.51 [facility] Basophil percentageOrdered B y: Tania Gutiérrez on 11-22-2022 Basophils/100 WBC (Bld) 0.5 % 0-1 [facility] Eosinophils/100 WBC (Bld) 0.7 % 0-5 [facility] Neutrophils (Bld) [#/Vol] 7.0 10*3/uL 2.0-7.7 [facility] Neutrophils/100 WBC (Bld) 70.7 % 47-70 [facility] WBC (Bld) [#/Vol] 9.9 10*3/uL 4.4-11.0 [facility] Blood erythrocytes count (nu mber/volume)Ordered By: Tania Gutiérrez on 11-22-2022 RBC (Bld) [#/Vol] 3.52 10*6/uL 4.2-5.4 [facility] Blood hemoglobin measurement (mass/volume)Ordered By: Tania Gutiérrez on 11-22-2022 Hemoglobin (Bld) [Mass/Vol] 11.1 g/dL 12.0-15.0 [facility] Blood lymphocytes/100 leukoc ytesOrdered By: Tania Gutiérrez on 11-22-2022 Lymphocytes/100 WBC (Bld) 17.6 % 19-41 [facility] Blood monocytes/100 leukocyt esOrdered By: Tania Gutiérrez on 11-22-2022 Monocytes/100 WBC (Bld) 9.2 % 0-10 [facility] Blood platelet mean volumeOr dered By: Tania Gutiérrez on 11-22-2022 Platelet mean volume (Bld) [Entitic vol] 9.6 fL 6.2-12.0 [facility] Determination of erythrocyte mean corpuscular volume (MCV)Ordered By: Tania Gutiérrez on 11-22-2022 MCV (RBC) [Entitic vol] 96.0 fL 81-99 [facility] Hematocrit Auto (Bld) [Volum e fraction]Ordered By: Tania Gutiérrez on 11-22-2022 Hematocrit (Bld) [Volume fraction] 33.8 % 37-47 [facility] Laboratory - Chemistry and C hemistry - challengeon 11-22-2022 Glucose Ql (U) Negative [facility] Laboratory - Hematology and Cell countsOrdered By: Tania Gutiérrez on 11-22-2022 Erythrocyte distribution width (RBC) [Entitic vol] 49.7 fL 35.1-43.9 [facility] Erythrocyte distribution width (RBC) [Ratio] 14.2 % 11.6-14.6 [facility] Immature granulocytes/100 WBC (Bld) 1.300 % 0.0-0.9 [facility] Comment on above: IG% - Immature Granu locytes (promyelocytes, myelocytes and metamyelocytes) > 1% indicates that a LEFT SHIFT is Present. MCH (RBC) [Entitic mass] 31.5 pg 27.0-32.0 [facility] Nucleated RBC/100 WBC (Bld) [Ratio] 0 % 0-5 [facility] Laboratory - Urinalysison Protein Ql (U) Negative [facility] MCHC Auto (RBC) [Mass/Vol]Or dered By: Tania Gutiérrez on 11-22-2022 MCHC (RBC) [Mass/Vol] 32.8 g/dL 32-36 [facility] Platelets bldOrdered By: Ameena Gutiérrez on 11-22-2022 Platelets (Bld) [#/Vol] 293 10*3/uL 150-450 [facility] Laboratory - Chemistry and C hemistry - challengeon 11-09-2022 Glucose Ql (U) Negative [facility] Laboratory - Urinalysison Protein Ql (U) Negative [facility] Quantitative serum or plasma 3 hour gestational glucose tolerance panelOrdered By: Tania Gutiérrez on 10-31-2022 Glucose tolerance 3 hours gestational panel See comment [facility] Comment on above: FASTING 89 Col: 10/19 11/10 [id number] TOLERANCE TEST FOR Reference Interval GESTATIONAL DIABETES Fasting <105 mg/dL 1 hour <190 mg/dl 2 hour <165 mg/dl 3 hour <145 mg/dl Absolute lymphocyte countOrd ered By: Dr. Gay on 10-27-2022 Lymphocytes Auto (Unsp spec) [#/Vol] 1.34 10*3/uL 0.83-4.51 [facility] Basophil percentageOrdered B y: Dr. Gay on 10-27-2022 Basophils/100 WBC (Bld) 0.3 % 0-1 [facility] Eosinophils/100 WBC (Bld) 0.7 % 0-5 [facility] Neutrophils (Bld) [#/Vol] 7.5 10*3/uL 2.0-7.7 [facility] Neutrophils/100 WBC (Bld) 76.1 % 47-70 [facility] WBC (Bld) [#/Vol] 9.9 10*3/uL 4.4-11.0 [facility] Blood erythrocytes count (nu mber/volume)Ordered By: Dr. Gay on 10-27-2022 RBC (Bld) [#/Vol] 3.14 10*6/uL 4.2-5.4 [facility] Blood hemoglobin measurement (mass/volume)Ordered By: Dr. Gay on 10-27-2022 Hemoglobin (Bld) [Mass/Vol] 10.3 g/dL 12.0-15.0 [facility] Blood lymphocytes/100 leukoc ytesOrdered By: Dr. Gay on 10-27-2022 Lymphocytes/100 WBC (Bld) 13.5 % 19-41 [facility] Blood monocytes/100 leukocyt esOrdered By: Dr. Gay on 10-27-2022 Monocytes/100 WBC (Bld) 7.5 % 0-10 [facility] Blood platelet mean volumeOr dered By: Dr. Gay on 10-27-2022 Platelet mean volume (Bld) [Entitic vol] 9.4 fL 6.2-12.0 [facility] Determination of erythrocyte mean corpuscular volume (MCV)Ordered By: Dr. Gay on 10-27-2022 MCV (RBC) [Entitic vol] 94.9 fL 81-99 [facility] Gestational diabetes screen 1-hour screen with 50g oral glucose loadOrdered By: Dr. Gay on 10-27-2022 Glucose 1 Hr post 50 g glucose PO [Mass/Vol] 149 mg/dL 70-140 [facility] HIV 1 and HIV-2 antibody ass ay with HIV-1 p24 antigen detectionOrdered By: Dr. Gay on 10-27-2022 HIV 1+2 Ab+HIV1 p24 Ag IA Ql Non-Reactive Nonreactive [facility] Hematocrit Auto (Bld) [Volum e fraction]Ordered By: Dr. Gay on 10-27-2022 Hematocrit (Bld) [Volume fraction] 29.8 % 37-47 [facility] Laboratory - Chemistry and C hemistry - challengeon 10-27-2022 Glucose Ql (U) Negative [facility] Laboratory - Hematology and Cell countsOrdered By: Dr. Gay on 10-27-2022 Erythrocyte distribution width (RBC) [Entitic vol] 44.5 fL 35.1-43.9 [facility] Erythrocyte distribution width (RBC) [Ratio] 13.2 % 11.6-14.6 [facility] Immature granulocytes/100 WBC (Bld) 1.900 % 0.0-0.9 [facility] Comment on above: IG% - Immature Granu locytes (promyelocytes, myelocytes and metamyelocytes) > 1% indicates that a LEFT SHIFT is Present. MCH (RBC) [Entitic mass] 32.8 pg 27.0-32.0 [facility] Nucleated RBC/100 WBC (Bld) [Ratio] 0 % 0-5 [facility] Laboratory - Urinalysison Protein Ql (U) Negative [facility] MCHC Auto (RBC) [Mass/Vol]Or dered By: Dr. Gay on 10-27-2022 MCHC (RBC) [Mass/Vol] 34.6 g/dL 32-36 [facility] Platelets bldOrdered By: Dr. Gay on 10-27-2022 Platelets (Bld) [#/Vol] 321 10*3/uL 150-450 [facility] Serum Treponema species anti body detectionOrdered By: Dr. Gay on 10-27-2022 Treponema sp Ab Ql (S) Non-Reactive [facility] Laboratory - Chemistry and C hemistry - challengeon 10-03-2022 Glucose Ql (U) Negative [facility] Laboratory - Urinalysison Protein Ql (U) Negative [facility] Laboratory - Chemistry and C hemistry - challengeon 09-05-2022 Glucose Ql (U) Negative [facility] Laboratory - Urinalysison Protein Ql (U) Negative [facility] Laboratory - Chemistry and C hemistry - challengeon 08-03-2022 Glucose Ql (U) Negative [facility] Laboratory - Urinalysison Protein Ql (U) Negative [facility] Absolute lymphocyte counton 07-04-2022 Lymphocytes Auto (Unsp spec) [#/Vol] 1.95 10*3/uL 0.83-4.51 [facility] Work Phone: Basophil percentageon 2021 Basophils/100 WBC (Bld) 0.5 % 0-1 [facility] Work Phone: Bilirubin [Mass/Vol] 0.90 mg/dL 0.20-1.00 [facility] Work Phone: Comment on above: For patients on eltr ombopag therapy, use of Dimension [place] TBIL is not recommended. Eosinophils/100 WBC (Bld) 1.3 % 0-5 [facility] Work Phone: Neutrophils (Bld) [#/Vol] 7.3 10*3/uL 2.0-7.7 [facility] Work Phone: Neutrophils/100 WBC (Bld) 70.0 % 47-70 [facility] Work Phone: WBC (Bld) [#/Vol] 10.5 10*3/uL 4.4-11.0 [facility] Work Phone: Blood erythrocytes count (nu mber/volume)on 07-04-2022 RBC (Bld) [#/Vol] 3.77 10*6/uL 4.2-5.4 [facility] Work Phone: Blood hemoglobin measurement (mass/volume)on 07-04-2022 Hemoglobin (Bld) [Mass/Vol] 12.4 g/dL 12.0-15.0 [facility] Work Phone: Blood lymphocytes/100 leukoc yteson 07-04-2022 Lymphocytes/100 WBC (Bld) 18.7 % 19-41 [facility] Work Phone: Blood monocytes/100 leukocyt eson 07-04-2022 Monocytes/100 WBC (Bld) 9.0 % 0-10 [facility] Work Phone: Blood platelet mean volumeon 07-04-2022 Platelet mean volume (Bld) [Entitic vol] 9.6 fL 6.2-12.0 [facility] Work Phone: Determination of erythrocyte mean corpuscular volume (MCV)on 07-04-2022 MCV (RBC) [Entitic vol] 92.6 fL 81-99 [facility] Work Phone: Direct bilirubinon Bilirubin.direct [Mass/Vol] 0.26 mg/dL 0.00-0.30 [facility] Work Phone: HIV 1 and HIV-2 antibody ass ay with HIV-1 p24 antigen detectionon 07-04-2022 HIV 1+2 Ab+HIV1 p24 Ag IA Ql Non-Reactive Nonreactive [facility] Work Phone: Hematocrit Auto (Bld) [Volum e fraction]on 07-04-2022 Hematocrit (Bld) [Volume fraction] 34.9 % 37-47 [facility] Work Phone: Laboratory - Chemistry and C hemistry - challengeon 07-04-2022 Glucose Ql (U) Negative [facility] Work Phone: Laboratory - Hematology and Cell countson 07-04-2022 Erythrocyte distribution width (RBC) [Entitic vol] 43.5 fL 35.1-43.9 [facility] Work Phone: Erythrocyte distribution width (RBC) [Ratio] 13.0 % 11.6-14.6 [facility] Work Phone: Immature granulocytes/100 WBC (Bld) 0.500 % 0.0-0.9 [facility] Work Phone: Comment on above: IG% - Immature Granu locytes (promyelocytes, myelocytes and metamyelocytes) > 1% indicates that a LEFT SHIFT is Present. MCH (RBC) [Entitic mass] 32.9 pg 27.0-32.0 [facility] Work Phone: Nucleated RBC/100 WBC (Bld) [Ratio] 0 % 0-5 [facility] Work Phone: Laboratory - Urinalysison Protein Ql (U) Negative [facility] Work Phone: MCHC Auto (RBC) [Mass/Vol]on 07-04-2022 MCHC (RBC) [Mass/Vol] 35.5 g/dL 32-36 [facility] Work Phone: No Panel Informationon 07-04 Hepatitis B Surface Antigen Non-Reactive Nonreactive [facility] Work Phone: Hepatitis C Antibody Non-Reactive Nonreactive [facility] Work Phone: Comment on above: Non Reactive: < 0.8 Equivocal: >/= 0.8 to < 1.0 Reactive: >/= 1.0The CDC recommends that a reactive/equivocal HCV antibody result be followed up by the HCV Nucleic Acid Amplificationtest (098625) Rubella IgG Antibody Reactive Nonreactive [facility] Work Phone: Comment on above: Antibody Results Int erpretation of Immune Status Non Reactive Presumed Non-Immune Equivocal Equivocal Reactive Presumed Immune Platelets bldon 07-04-2022 Platelets (Bld) [#/Vol] 346 10*3/uL 150-450 [facility] Work Phone: Serum Treponema species anti body detectionon 07-04-2022 Treponema sp Ab Ql (S) Non-Reactive [facility] Work Phone: Cervical or vagninal specime n microscopic examination by cytology stain (reported ason 06-08-2022 Cytology report Cyto stain Doc (Cvx/Vag) Comment . [facility] Work Phone: Comment on above: The Pap [...] JOSE J+probe Ql (Unsp spec) Negative Negative [facility] Work Phone: Laboratory - Cytologyon 05-21 Filter Machine Operator Cyto stain Nom (Cvx/Vag) [ID] Comment . [facility] Work Phone: Comment on above: Nolan Caputo, Servicing Manager (ASCP) Laboratory - Drug toxicology on 06-08-2022 Amphetamines Ql (U) Negative <1000 ng/mL [facility] Work Phone: Benzodiazepines Ql (U) Negative < 200 ng/mL [facility] Work Phone: Cannabinoids Screen Ql (U) Negative < 50 ng/m L [facility] Work Phone: Cocaine Ql (U) Negative < 300 ng/mL [facility] Work Phone: Opiates Ql (U) Negative < 300 ng/mL [facility] Work Phone: Laboratory - Microbiology an d Antimicrobial susceptibilityon 06-08-2022 N. gonorrhoeae DNA JOSE J+probe Ql (Unsp spec) Negative Negative [facility] Work Phone: Comment on above: Performed at: =G - L [address] [id number] Director: Chayo Yi MD, Phone: [phone] Laboratory - Miscellaneous t estson 06-08-2022 Service comment (Unsp spec) [Interp] Comment . [facility] Work Phone: Comment on above: This liquid based Th inPrep(R) pap test was screened withthe use of an image guided system. Service comment (Unsp spec) [Interp] . . [facility] Work Phone: No Panel Informationon 06-08 Human Papillomavirus Screen Comment . [facility] Work Phone: Comment on above: The HPV DNA reflex c riteria were not met with this specimenresult therefore, no HPV testing was performed.Performed at: - [facility] [address] [id number] Director: Chayo Yi MD, Phone: [phone] MDMA (Ecstasy) Screen Negative < 500 ng/mL [facility] Work Phone: Pathology report final diagnosis Narrative Comment . [facility] Work Phone: Comment on above: NEGATIVE FOR INTRAEP ITHELIAL LESION OR MALIGNANCY. Urine Barbiturates Screen Negative < 200 ng/m L [facility] Work Phone: Urine Drug Screen Comment [facility] Work Phone: Comment on above: CONFIRMATORY TESTING [...] Methadone Screen Negative < 300 ng/mL [facility] Work Phone: Urine phencyclidine (PCP) de tectionon 06-08-2022 Phencyclidine Ql (U) Negative < 25 ng/mL [facility] Work Phone: Laboratory - Microbiology an d Antimicrobial susceptibilityon 03-30-2022 SARS-CoV-2 (COVID-19) RNA JOSE J+probe Ql (Unsp spec) Not detected [facility] Work Phone: No Panel Informationon 03-30 Influenza Types A,B Rapid (Clinic) Not detected [facility] Work Phone: GC/Chlamydia Amp, Uron 07-06 Chlamydia Amplif, Ur Normal [facility] Reference [facility] Comment on above: Result Comment: Nega tive for For screening asymptomatic women, a vaginal swab specimen (APTIMA vaginal swab 710528) is optimal. Urine specimens have reduced sensitivity for Chlamydia trachomatis or Neisseria gonorrhoeae infection in female patients without symptoms. This test was developed and its performance characteristics determined by [facility] [place] ([facility]). It has not been cleared or approved by the FDA. [facility] is regulated under CLIA as qualified to perform high complexity testing. This test is used for clinical purposes. It should not be regarded as investigational or for research. Chlamydia For screening asymptomatic women, a vaginal swab specimen (APTIMA vaginal swab 462938) is optimal. Urine specimens have reduced sensitivity for Chlamydia trachomatis or Neisseria gonorrhoeae infection in female patients without symptoms. This test was developed and its performance characteristics determined by [facility] and Laboratory Medicine [place] ([facility]). It has not been cleared or approved by the FDA. [facility] is regulated under CLIA as qualified to perform high complexity testing. This test is used for clinical purposes. It should not be regarded as investigational or for research. trachomatis by For screening asymptomatic women, a vaginal swab specimen (APTIMA vaginal swab [id number]) is optimal. Urine specimens have reduced sensitivity for Chlamydia trachomatis or Neisseria gonorrhoeae infection in female patients without symptoms. This test was developed and its performance characteristics determined by [facility] and Laboratory Medicine [place] ([facility]). It has not been cleared or approved by the FDA. [facility] is regulated under CLIA as qualified to perform high complexity testing. This test is used for clinical purposes. It should not be regarded as investigational or for research. amplification. For screening asymptomatic women, a vaginal swab specimen (APTIMA vaginal swab 725414) is optimal. Urine specimens have reduced sensitivity for Chlamydia trachomatis or Neisseria gonorrhoeae infection in female patients without symptoms. This test was developed and its performance characteristics determined by [facility] and Laboratory Medicine [place] ([facility]). It has not been cleared or approved by the FDA. [facility] is regulated under CLIA as qualified to perform high complexity testing. This test is used for clinical purposes. It should not be regarded as investigational or for research. Performed By: #### U GCCT #### [facility] Routine Lab [address] [place], [place] [address] GC Amplification, Ur NGNEG Normal [facility] Comment on above: Performed By: #### U GCCT #### [facility] Routine Lab [address] [place], [place] [address] Culture, urine Bacteria identified Cx Nom (U) Culture exhibits no growth. [facility] Work Phone: Vital Signs Date Time Vital Sign Value Performing Clinician Cristy allen 05-07-2025 15:26-0400 Body height 170.18 cm Yudi Méndez CLINICAL DATA ASSISTANT-C Work Phone: [facility] 05-07-2025 15:26-0400 Body mass index (BMI) [Ratio] 29.8 kg/m2 Yudi Méndez CLINICAL DATA ASSISTANT-C Work Phone: [facility] 05-07-2025 15:26-0400 Body weight 86.43 kg Yudi Méndez CLINICAL DATA ASSISTANT-C Work Phone: [facility] 05-07-2025 15:26-0400 Diastolic blood pressure 76 mm[Hg] Yudi Méndez CLINICAL DATA ASSISTANT-C Work Phone: [facility] 05-07-2025 15:26-0400 Systolic blood pressure 122 mm[Hg] Yudi Méndez CLINICAL DATA ASSISTANT-C Work Phone: [facility] 04-30-2025 15:00-0400 Body height 170.18 cm Yudi Méndez CLINICAL DATA ASSISTANT-C Work Phone: [facility] 04-30-2025 15:00-0400 Body mass index (BMI) [Ratio] 29.6 kg/m2 Yudi Méndez CLINICAL DATA ASSISTANT-C Work Phone: [facility] 04-30-2025 15:00-0400 Body weight 85.72 kg Yudi Méndez CLINICAL DATA ASSISTANT-C Work Phone: [facility] 04-30-2025 15:00-0400 Diastolic blood pressure 72 mm[Hg] Yudi Méndez CLINICAL DATA ASSISTANT-C Work Phone: [facility] 04-30-2025 15:00-0400 Systolic blood pressure 118 mm[Hg] Yudi Méndez CLINICAL DATA ASSISTANT-C Work Phone: [facility] 04-24-2025 13:50-0400 Body height 170.18 cm Yudi Aris CLINICAL DATA ASSISTANT-C Work Phone: [facility] 04-24-2025 13:50-0400 Body mass index (BMI) [Ratio] 29.2 kg/m2 Yudi Aris CLINICAL DATA ASSISTANT-C Work Phone: [facility] 04-24-2025 13:50-0400 Body weight 84.82 kg Yudi Aris CLINICAL DATA ASSISTANT-C Work Phone: 9(110)259-271403 [address] 04-24-2025 13:50-0400 Diastolic blood pressure 69 mm[Hg] Yudi Aris CLINICAL DATA ASSISTANT-C Work Phone: 3(160)705-959903 [address] 04-24-2025 13:50-0400 Systolic blood pressure 115 mm[Hg] Yudi Aris CLINICAL DATA ASSISTANT-C Work Phone: 2(065)234-516244 [place] [address] 04-16-2025 15:28-0400 Body height 170.18 cm Yudi Aris CLINICAL DATA ASSISTANT-C Work Phone: 0(761)064-058244 [place] [address] 04-16-2025 15:28-0400 Body mass index (BMI) [Ratio] 29.3 kg/m2 Yudi Aris CLINICAL DATA ASSISTANT-C Work Phone: 1(574)844-336603 [address] 04-16-2025 15:28-0400 Body weight 84.99 kg Yudi Aris CLINICAL DATA ASSISTANT-C Work Phone: 1(839)104-155444 [place] [address] 04-16-2025 15:28-0400 Diastolic blood pressure 73 mm[Hg] Yudi Aris CLINICAL DATA ASSISTANT-C Work Phone: 9(653)127-346044 [place] [address] 04-16-2025 15:28-0400 Systolic blood pressure 119 mm[Hg] Yudi Aris CLINICAL DATA ASSISTANT-C Work Phone: 6(258)478-436603 [address] 03-31-2025 15:44-0400 Body height 170.18 cm Yudi Aris CLINICAL DATA ASSISTANT-C Work Phone: 4(375)574-238770 [place] [address] 03-31-2025 15:44-0400 Body mass index (BMI) [Ratio] 28.6 kg/m2 Yudi Aris CLINICAL DATA ASSISTANT-C Work Phone: [facility] 03-31-2025 15:44-0400 Body weight 83 kg Yudi Méndez CLINICAL DATA ASSISTANT-C Work Phone: [facility] 03-31-2025 15:44-0400 Diastolic blood pressure 71 mm[Hg] Yudi Méndez CLINICAL DATA ASSISTANT-C Work Phone: [facility] 03-31-2025 15:44-0400 Systolic blood pressure 118 mm[Hg] Yudi Méndez CLINICAL DATA ASSISTANT-C Work Phone: [facility] 03-23-2025 14:38-0400 Body temperature 98.3 [degF] Yudi Méndez CLINICAL DATA ASSISTANT-C Work Phone: [facility] 03-23-2025 14:38-0400 Diastolic blood pressure 89 mm[Hg] Yudi Méndez CLINICAL DATA ASSISTANT-C Work Phone: [facility] 03-23-2025 14:38-0400 Heart rate 77 /min Yudi Méndez CLINICAL DATA ASSISTANT-C Work Phone: [facility] 03-23-2025 14:38-0400 Respiratory rate 16 /min Yudi Méndez CLINICAL DATA ASSISTANT-C Work Phone: [facility] 03-23-2025 14:38-0400 SaO2% (BldA) [Mass fraction] 100 % Yudi Méndez CLINICAL DATA ASSISTANT-C Work Phone: [facility] 03-23-2025 14:38-0400 Systolic blood pressure 132 mm[Hg] Yudi Méndez CLINICAL DATA ASSISTANT-C Work Phone: [facility] 03-23-2025 12:58-0400 Body height 170.18 cm Yudi Méndez CLINICAL DATA ASSISTANT-C Work Phone: [facility] 03-23-2025 12:58-0400 Body mass index (BMI) [Ratio] 28.1 kg/m2 Yudi Méndez CLINICAL DATA ASSISTANT-C Work Phone: [facility] 03-23-2025 12:58-0400 Body weight 81.51 kg Yudi Méndez CLINICAL DATA ASSISTANT-C Work Phone: [facility] 03-19-2025 12:54-0400 Body height 170.18 cm Yudi Méndez CLINICAL DATA ASSISTANT-C Work Phone: [facility] 03-19-2025 12:49-0400 Body mass index (BMI) [Ratio] 28.6 kg/m2 Yudi Aris CLINICAL DATA ASSISTANT-C Work Phone: [facility] 03-19-2025 12:49-0400 Body weight 83 kg Yudi Aris CLINICAL DATA ASSISTANT-C Work Phone: [facility] 03-19-2025 12:49-0400 Diastolic blood pressure 67 mm[Hg] Yudi Aris CLINICAL DATA ASSISTANT-C Work Phone: [facility] 03-19-2025 12:49-0400 Systolic blood pressure 104 mm[Hg] Yudi Aris CLINICAL DATA ASSISTANT-C Work Phone: 5(576)814-2015[address] [place] [address] 03-07-2025 16:14-0400 Body height 170.18 cm Yudi Aris CLINICAL DATA ASSISTANT-C Work Phone: 8(029)471-185734 [place] [address] 03-07-2025 16:11-0400 Body mass index (BMI) [Ratio] 28.5 kg/m2 Yudi Aris CLINICAL DATA ASSISTANT-C Work Phone: [facility] 03-07-2025 16:11-0400 Body weight 82.61 kg Yudi Aris CLINICAL DATA ASSISTANT-C Work Phone: [facility] 03-07-2025 16:11-0400 Diastolic blood pressure 73 mm[Hg] Yudi Aris CLINICAL DATA ASSISTANT-C Work Phone: [facility] 03-07-2025 16:11-0400 Systolic blood pressure 115 mm[Hg] Yudi Aris CLINICAL DATA ASSISTANT-C Work Phone: [facility] 02-19-2025 11:35-0400 Body height 170.18 cm Yudi Aris CLINICAL DATA ASSISTANT-C Work Phone: [facility] 02-19-2025 11:31-0400 Body mass index (BMI) [Ratio] 27.8 kg/m2 Yudi Méndez CLINICAL DATA ASSISTANT-C Work Phone: [facility] 02-19-2025 11:31-0400 Body weight 80.73 kg Yudi Méndez CLINICAL DATA ASSISTANT-C Work Phone: 7(949)222-910170 [place] [address] 02-19-2025 11:31-0400 Diastolic blood pressure 71 mm[Hg] Yudi Aris CLINICAL DATA ASSISTANT-C Work Phone: 5(529)490-128070 [place] [address] 02-19-2025 11:31-0400 Systolic blood pressure 111 mm[Hg] Yudi Aris CLINICAL DATA ASSISTANT-C Work Phone: 9(806)721-730270 [place] [address] 01-29-2025 15:15-0400 Body height 170.18 cm Yudi Méndez CLINICAL DATA ASSISTANT-C Work Phone: 4(798)563-841144 [place] [address] 01-29-2025 15:12-0400 Body mass index (BMI) [Ratio] 27.2 kg/m2 Yudi Aris CLINICAL DATA ASSISTANT-C Work Phone: 2(117)617-801144 [place] [address] 01-29-2025 15:12-0400 Body weight 78.92 kg Yudi Aris CLINICAL DATA ASSISTANT-C Work Phone: 0(248)164-963744 [place] [address] 01-29-2025 15:12-0400 Diastolic blood pressure 69 mm[Hg] Yudi Aris CLINICAL DATA ASSISTANT-C Work Phone: 4(455)461-063644 [place] [address] 01-29-2025 15:12-0400 Systolic blood pressure 118 mm[Hg] Yudi Méndez CLINICAL DATA ASSISTANT-C Work Phone: 9(266)381-397044 [place] [address] 01-01-2025 11:30-0400 Body height 170.18 cm Yudi Aris CLINICAL DATA ASSISTANT-C Work Phone: 3(432)266-321444 [place] [address] 01-01-2025 11:25-0400 Body mass index (BMI) [Ratio] 26.2 kg/m2 Yudi Aris CLINICAL DATA ASSISTANT-C Work Phone: 2(913)366-845070 [place] [address] 01-01-2025 11:25-0400 Body weight 75.97 kg Yudi Méndez CLINICAL DATA ASSISTANT-C Work Phone: 4(572)736-555470 [place] [address] 01-01-2025 11:25-0400 Diastolic blood pressure 71 mm[Hg] Yudi Méndez CLINICAL DATA ASSISTANT-C Work Phone: [facility] 01-01-2025 11:25-0400 Systolic blood pressure 113 mm[Hg] Yudi Méndez CLINICAL DATA ASSISTANT-C Work Phone: [facility] 11-27-2024 12:29-0400 Body mass index (BMI) [Ratio] 24.7 kg/m2 Yudi Méndez CLINICAL DATA ASSISTANT-C Work Phone: [facility] 11-27-2024 12:29-0400 Body weight 71.72 kg Yudi Méndez CLINICAL DATA ASSISTANT-C Work Phone: [facility] 11-27-2024 12:29-0400 Diastolic blood pressure 67 mm[Hg] Yudi Méndez CLINICAL DATA ASSISTANT-C Work Phone: [facility] 11-27-2024 12:29-0400 Systolic blood pressure 101 mm[Hg] Yudi Méndez CLINICAL DATA ASSISTANT-C Work Phone: [facility] 11-26-2024 14:17-0400 Body mass index (BMI) [Ratio] 25 kg/m2 uYdi Méndez CLINICAL DATA ASSISTANT-C Work Phone: [facility] 11-26-2024 14:17-0400 Body temperature 97.2 [degF] Yudi Méndez CLINICAL DATA ASSISTANT-C Work Phone: [facility] 11-26-2024 14:17-0400 Body weight 72.68 kg Yudi Méndez CLINICAL DATA ASSISTANT-C Work Phone: [facility] 11-26-2024 14:17-0400 Diastolic blood pressure 79 mm[Hg] Yudi Méndez CLINICAL DATA ASSISTANT-C Work Phone: [facility] 11-26-2024 14:17-0400 Heart rate 63 /min Yudi Méndez CLINICAL DATA ASSISTANT-C Work Phone: [facility] 11-26-2024 14:17-0400 Respiratory rate 18 /min Yudi Méndez CLINICAL DATA ASSISTANT-C Work Phone: [facility] 11-26-2024 14:17-0400 SaO2% (BldA) [Mass fraction] 100 % Yudi Méndez CLINICAL DATA ASSISTANT-C Work Phone: [facility] 11-26-2024 14:17-0400 Systolic blood pressure 113 mm[Hg] Yudi Méndez CLINICAL DATA ASSISTANT-C Work Phone: [facility] 11-01-2024 14:26-0400 Body mass index (BMI) [Ratio] 23.6 kg/m2 Yudi Méndez CLINICAL DATA ASSISTANT-C Work Phone: [facility] 11-01-2024 14:26-0400 Body weight 68.26 kg Yudi Méndez CLINICAL DATA ASSISTANT-C Work Phone: [facility] 11-01-2024 14:26-0400 Diastolic blood pressure 75 mm[Hg] Yudi Méndez CLINICAL DATA ASSISTANT-C Work Phone: [facility] 11-01-2024 14:26-0400 Systolic blood pressure 114 mm[Hg] Yudi Mnédez CLINICAL DATA ASSISTANT-C Work Phone: [facility] 10-04-2024 14:30-0500 Body mass index (BMI) [Ratio] 23.8 kg/m2 Yudi Méndez CLINICAL DATA ASSISTANT-C Work Phone: [facility] 10-04-2024 14:30-0500 Body weight 69.11 kg Yudi Méndez CLINICAL DATA ASSISTANT-C Work Phone: [facility] 10-04-2024 14:30-0500 Diastolic blood pressure 82 mm[Hg] Yudi Méndez CLINICAL DATA ASSISTANT-C Work Phone: [facility] 10-04-2024 14:30-0500 Systolic blood pressure 124 mm[Hg] Yudi Méndez CLINICAL DATA ASSISTANT-C Work Phone: [facility] 03-06-2023 11:36-0400 Body height 170.18 cm CLINICAL DATA ASSISTANT-C Yudi Méndez CLINICAL DATA ASSISTANT Work Phone: [facility] 03-06-2023 11:35-0400 Body mass index (BMI) [Ratio] 24.3 kg/m2 CLINICAL DATA ASSISTANT-C Yudi Méndez CLINICAL DATA ASSISTANT Work Phone: [facility] 03-06-2023 11:35-0400 Body weight 70.53 kg CLINICAL DATA ASSISTANT-C Yudi Méndez CLINICAL DATA ASSISTANT Work Phone: [facility] 03-06-2023 11:35-0400 Diastolic blood pressure 79 mm[Hg] CLINICAL DATA ASSISTANT-C Yudi Méndez CLINICAL DATA ASSISTANT Work Phone: [facility] 03-06-2023 11:35-0400 Systolic blood pressure 119 mm[Hg] CLINICAL DATA ASSISTANT-C Yudi Méndez CLINICAL DATA ASSISTANT Work Phone: [facility] 01-25-2023 08:54-0400 Body temperature 98.7 [degF] CLINICAL DATA ASSISTANT-C Yudi Méndez CLINICAL DATA ASSISTANT Work Phone: [facility] 01-25-2023 08:54-0400 Diastolic blood pressure 78 mm[Hg] CLINICAL DATA ASSISTANT-C Yudi Méndez CLINICAL DATA ASSISTANT Work Phone: [facility] 01-25-2023 08:54-0400 Heart rate 67 /min CLINICAL DATA ASSISTANT-C Yudi Méndez CLINICAL DATA ASSISTANT Work Phone: [facility] 01-25-2023 08:54-0400 Respiratory rate 18 /min CLINICAL DATA ASSISTANT-C Yudi Méndez CLINICAL DATA ASSISTANT Work Phone: [facility] 01-25-2023 08:54-0400 SaO2% (BldA) [Mass fraction] 96 % CLINICAL DATA ASSISTANT-C Yudi Méndez CLINICAL DATA ASSISTANT Work Phone: [facility] 01-25-2023 08:54-0400 Systolic blood pressure 123 mm[Hg] CLINICAL DATA ASSISTANT-C Yudi Méndez CLINICAL DATA ASSISTANT Work Phone: [facility] 01-23-2023 07:34-0400 Body height 170.18 cm CLINICAL DATA ASSISTANT-C Yudi Méndez CLINICAL DATA ASSISTANT Work Phone: [facility] 01-23-2023 07:34-0400 Body mass index (BMI) [Ratio] 29.4 kg/m2 CLINICAL DATA ASSISTANT-C Yudi Méndez CLINICAL DATA ASSISTANT Work Phone: [facility] 01-23-2023 07:34-0400 Body weight 85.27 kg CLINICAL DATA ASSISTANT-C Yudi Méndez CLINICAL DATA ASSISTANT Work Phone: [facility] 01-18-2023 09:11-0400 Body mass index (BMI) [Ratio] 29.7 kg/m2 CLINICAL DATA ASSISTANT-C Yudi Aris CLINICAL DATA ASSISTANT Work Phone: [facility] 01-18-2023 09:11-0400 Body weight 86.29 kg CLINICAL DATA ASSISTANT-C Yudi Méndez CLINICAL DATA ASSISTANT Work Phone: [facility] 01-18-2023 09:11-0400 Diastolic blood pressure 82 mm[Hg] CLINICAL DATA ASSISTANT-C Yudi Méndez CLINICAL DATA ASSISTANT Work Phone: [facility] 01-18-2023 09:11-0400 Systolic blood pressure 123 mm[Hg] CLINICAL DATA ASSISTANT-C Yudi Méndez CLINICAL DATA ASSISTANT Work Phone: [facility] 01-09-2023 08:35-0400 Body mass index (BMI) [Ratio] 30.4 kg/m2 CLINICAL DATA ASSISTANT-C Yudi Méndez CLINICAL DATA ASSISTANT Work Phone: [facility] 01-09-2023 08:35-0400 Body weight 88.11 kg CLINICAL DATA ASSISTANT-C Yudi Méndez CLINICAL DATA ASSISTANT Work Phone: [facility] 01-09-2023 08:35-0400 Diastolic blood pressure 83 mm[Hg] CLINICAL DATA ASSISTANT-C Yudi Méndez CLINICAL DATA ASSISTANT Work Phone: [facility] 01-09-2023 08:35-0400 Systolic blood pressure 123 mm[Hg] CLINICAL DATA ASSISTANT-C Yudi Méndez CLINICAL DATA ASSISTANT Work Phone: [facility] 01-03-2023 09:18-0400 Body mass index (BMI) [Ratio] 29.9 kg/m2 CLINICAL DATA ASSISTANT-C Yudi Méndez CLINICAL DATA ASSISTANT Work Phone: [facility] 01-03-2023 09:18-0400 Body weight 86.8 kg CLINICAL DATA ASSISTANT-C Yudi Méndez CLINICAL DATA ASSISTANT Work Phone: [facility] 01-03-2023 09:18-0400 Diastolic blood pressure 83 mm[Hg] CLINICAL DATA ASSISTANT-C Yudi Aris CLINICAL DATA ASSISTANT Work Phone: [facility] 01-03-2023 09:18-0400 Systolic blood pressure 131 mm[Hg] CLINICAL DATA ASSISTANT-C Yudi Aris CLINICAL DATA ASSISTANT Work Phone: [facility] 12-28-2022 14:34-0400 Body mass index (BMI) [Ratio] 29.7 kg/m2 CLINICAL DATA ASSISTANT-C Yudi Méndez CLINICAL DATA ASSISTANT Work Phone: [facility] 12-28-2022 14:34-0400 Body weight 86.18 kg CLINICAL DATA ASSISTANT-C Yudi Aris CLINICAL DATA ASSISTANT Work Phone: [facility] 12-28-2022 14:34-0400 Diastolic blood pressure 82 mm[Hg] CLINICAL DATA ASSISTANT-C Yudi Méndez CLINICAL DATA ASSISTANT Work Phone: [facility] 12-28-2022 14:34-0400 Systolic blood pressure 126 mm[Hg] CLINICAL DATA ASSISTANT-C Yudi Méndez CLINICAL DATA ASSISTANT Work Phone: [facility] 12-20-2022 13:39-0400 Body height 170.18 cm CLINICAL DATA ASSISTANT-C Yudi Méndez CLINICAL DATA ASSISTANT Work Phone: [facility] 12-20-2022 13:39-0400 Body mass index (BMI) [Ratio] 30.2 kg/m2 CLINICAL DATA ASSISTANT-C Yudi Aris CLINICAL DATA ASSISTANT Work Phone: [facility] 12-20-2022 13:39-0400 Body weight 87.6 kg CLINICAL DATA ASSISTANT-C Yudi Méndez CLINICAL DATA ASSISTANT Work Phone: [facility] 12-20-2022 13:39-0400 Diastolic blood pressure 80 mm[Hg] CLINICAL DATA ASSISTANT-C Yudi Aris CLINICAL DATA ASSISTANT Work Phone: [facility] 12-20-2022 13:39-0400 Systolic blood pressure 120 mm[Hg] CLINICAL DATA ASSISTANT-C Yudi Aris CLINICAL DATA ASSISTANT Work Phone: [facility] 12-07-2022 16:13-0400 Body mass index (BMI) [Ratio] 29 kg/m2 CLINICAL DATA ASSISTANT-C Yudi Méndez CLINICAL DATA ASSISTANT Work Phone: [facility] 12-07-2022 16:13-0400 Body weight 84.14 kg CLINICAL DATA ASSISTANT-C Yudi Méndez CLINICAL DATA ASSISTANT Work Phone: [facility] 12-07-2022 16:13-0400 Diastolic blood pressure 78 mm[Hg] CLINICAL DATA ASSISTANT-C Yudi Méndez CLINICAL DATA ASSISTANT Work Phone: [facility] 12-07-2022 16:13-0400 Systolic blood pressure 121 mm[Hg] CLINICAL DATA ASSISTANT-C Yudi Méndez CLINICAL DATA ASSISTANT Work Phone: [facility] 11-22-2022 15:13-0400 Body height 170.18 cm CLINICAL DATA ASSISTANT-C Yudi Méndez CLINICAL DATA ASSISTANT Work Phone: [facility] 11-22-2022 15:11-0400 Body mass index (BMI) [Ratio] 27.9 kg/m2 CLINICAL DATA ASSISTANT-C Yudi Méndez CLINICAL DATA ASSISTANT Work Phone: [facility] 11-22-2022 15:11-0400 Body weight 80.85 kg CLINICAL DATA ASSISTANT-C Yudi Méndez CLINICAL DATA ASSISTANT Work Phone: [facility] 11-22-2022 15:11-0400 Diastolic blood pressure 77 mm[Hg] CLINICAL DATA ASSISTANT-C Yudi Méndez CLINICAL DATA ASSISTANT Work Phone: [facility] 11-22-2022 15:11-0400 Systolic blood pressure 121 mm[Hg] CLINICAL DATA ASSISTANT-C Yudi Méndez CLINICAL DATA ASSISTANT Work Phone: [facility] 11-09-2022 14:42-0400 Body mass index (BMI) [Ratio] 27.7 kg/m2 CLINICAL DATA ASSISTANT-C Yudi Méndez CLINICAL DATA ASSISTANT Work Phone: [facility] 11-09-2022 14:42-0400 Body weight 80.39 kg CLINICAL DATA ASSISTANT-C Yudi Méndez CLINICAL DATA ASSISTANT Work Phone: [facility] 11-09-2022 14:42-0400 Diastolic blood pressure 77 mm[Hg] CLINICAL DATA ASSISTANT-C Yudi Méndez CLINICAL DATA ASSISTANT Work Phone: [facility] 11-09-2022 14:42-0400 Systolic blood pressure 117 mm[Hg] CLINICAL DATA ASSISTANT-C Yudi Méndez CLINICAL DATA ASSISTANT Work Phone: [facility] 10-27-2022 09:07-0500 Body height 170.18 cm CLINICAL DATA ASSISTANT-C Yudi Méndez CLINICAL DATA ASSISTANT Work Phone: [facility] 10-27-2022 09:00-0500 Body mass index (BMI) [Ratio] 27.1 kg/m2 CLINICAL DATA ASSISTANT-C uYdi Méndez CLINICAL DATA ASSISTANT Work Phone: [facility] 10-27-2022 09:00-0500 Body weight 78.58 kg CLINICAL DATA ASSISTANT-C Yudi Méndez CLINICAL DATA ASSISTANT Work Phone: [facility] 10-27-2022 09:00-0500 Diastolic blood pressure 70 mm[Hg] CLINICAL DATA ASSISTANT-C Yudi Méndez CLINICAL DATA ASSISTANT Work Phone: [facility] 10-27-2022 09:00-0500 Systolic blood pressure 102 mm[Hg] CLINICAL DATA ASSISTANT-C Yudi Méndez CLINICAL DATA ASSISTANT Work Phone: [facility] 10-03-2022 14:06-0500 Body mass index (BMI) [Ratio] 26.9 kg/m2 CLINICAL DATA ASSISTANT-C Yudi Méndez CLINICAL DATA ASSISTANT Work Phone: [facility] 10-03-2022 14:06-0500 Body weight 78.18 kg CLINICAL DATA ASSISTANT-C Yudi Méndez CLINICAL DATA ASSISTANT Work Phone: [facility] 10-03-2022 14:06-0500 Diastolic blood pressure 80 mm[Hg] CLINICAL DATA ASSISTANT-C Yudi Méndez CLINICAL DATA ASSISTANT Work Phone: [facility] 10-03-2022 14:06-0500 Systolic blood pressure 124 mm[Hg] CLINICAL DATA ASSISTANT-C Yudi Méndez CLINICAL DATA ASSISTANT Work Phone: [facility] 09-05-2022 09:54-0500 Body mass index (BMI) [Ratio] 25.6 kg/m2 CLINICAL DATA ASSISTANT-C Yudi Méndez CLINICAL DATA ASSISTANT Work Phone: [facility] 09-05-2022 09:54-0500 Body weight 74.16 kg CLINICAL DATA ASSISTANT-C Yudi Méndez CLINICAL DATA ASSISTANT Work Phone: [facility] 09-05-2022 09:54-0500 Diastolic blood pressure 68 mm[Hg] CLINICAL DATA ASSISTANT-C Yudi Méndez CLINICAL DATA ASSISTANT Work Phone: [facility] 09-05-2022 09:54-0500 Systolic blood pressure 110 mm[Hg] CLINICAL DATA ASSISTANT-C Yudi Méndez CLINICAL DATA ASSISTANT Work Phone: [facility] 08-03-2022 14:36-0500 Body mass index (BMI) [Ratio] 25.2 kg/m2 CLINICAL DATA ASSISTANT-C Yudi Méndez CLINICAL DATA ASSISTANT Work Phone: [facility] 08-03-2022 14:36-0500 Body weight 73.02 kg CLINICAL DATA ASSISTANT-C Yudi Méndez CLINICAL DATA ASSISTANT Work Phone: [facility] 08-03-2022 14:36-0500 Diastolic blood pressure 74 mm[Hg] CLINICAL DATA ASSISTANT-C Yudi Méndez CLINICAL DATA ASSISTANT Work Phone: [facility] 08-03-2022 14:36-0500 Systolic blood pressure 116 mm[Hg] CLINICAL DATA ASSISTANT-C Yudi Méndez CLINICAL DATA ASSISTANT Work Phone: [facility] 07-04-2022 14:12-0500 Body height 170.18 cm CLINICAL DATA ASSISTANT-C Yudi Méndez CLINICAL DATA ASSISTANT Work Phone: [facility] Work Phone: 07-04-2022 14:11-0500 Body mass index (BMI) [Ratio] 25 kg/m2 CLINICAL DATA ASSISTANT-C Yudi Méndez CLINICAL DATA ASSISTANT Work Phone: [facility] Work Phone: 07-04-2022 14:11-0500 Body weight 72.29 kg CLINICAL DATA ASSISTANT-C Yudi Méndez CLINICAL DATA ASSISTANT Work Phone: [facility] Work Phone: 07-04-2022 14:11-0500 Diastolic blood pressure 72 mm[Hg] CLINICAL DATA ASSISTANT-C Yudi Méndez CLINICAL DATA ASSISTANT Work Phone: [facility] Work Phone: 07-04-2022 14:11-0500 Systolic blood pressure 114 mm[Hg] CLINICAL DATA ASSISTANT-C Yudi Méndez CLINICAL DATA ASSISTANT Work Phone: [facility] Work Phone: 06-08-2022 09:45-0400 Body height 170.18 cm CLINICAL DATA ASSISTANT-C Yudi Méndez CLINICAL DATA ASSISTANT Work Phone: [facility] Work Phone: 06-08-2022 09:45-0400 Body mass index (BMI) [Ratio] 23.6 kg/m2 CLINICAL DATA ASSISTANT-C Yudi Méndez CLINICAL DATA ASSISTANT Work Phone: [facility] Work Phone: 06-08-2022 09:45-0400 Body weight 68.49 kg CLINICAL DATA ASSISTANT-C Yudi Méndez CLINICAL DATA ASSISTANT Work Phone: [facility] Work Phone: 06-08-2022 09:45-0400 Diastolic blood pressure 79 mm[Hg] CLINICAL DATA ASSISTANT-C Yudi Méndez CLINICAL DATA ASSISTANT Work Phone: [facility] Work Phone: 06-08-2022 09:45-0400 Systolic blood pressure 123 mm[Hg] CLINICAL DATA ASSISTANT-C Yudi Méndez CLINICAL DATA ASSISTANT Work Phone: [facility] Work Phone: 03-30-2022 15:45-0400 Body mass index (BMI) [Ratio] 23.5 kg/m2 CLINICAL DATA ASSISTANT-C Yudi Méndez CLINICAL DATA ASSISTANT Work Phone: [facility] Work Phone: 03-30-2022 15:45-0400 Body temperature 98.4 [degF] CLINICAL DATA ASSISTANT-C Yudi Méndez CLINICAL DATA ASSISTANT Work Phone: [facility] Work Phone: 03-30-2022 15:45-0400 Body weight 68.03 kg CLINICAL DATA ASSISTANT-C Yudi Méndez CLINICAL DATA ASSISTANT Work Phone: [facility] Work Phone: 03-30-2022 15:45-0400 Diastolic blood pressure 66 mm[Hg] CLINICAL DATA ASSISTANT-C Yudi Méndez CLINICAL DATA ASSISTANT Work Phone: [facility] Work Phone: 03-30-2022 15:45-0400 Heart rate 82 /min CLINICAL DATA ASSISTANT-C Yudi Méndez CLINICAL DATA ASSISTANT Work Phone: [facility] Work Phone: 03-30-2022 15:45-0400 Respiratory rate 16 /min CLINICAL DATA ASSISTANT-C Yudi Méndez CLINICAL DATA ASSISTANT Work Phone: [facility] Work Phone: 03-30-2022 15:45-0400 SaO2% (BldA) [Mass fraction] 99 % CLINICAL DATA ASSISTANT-C Yudi Méndez CLINICAL DATA ASSISTANT Work Phone: [facility] Work Phone: 03-30-2022 15:45-0400 Systolic blood pressure 108 mm[Hg] CLINICAL DATA ASSISTANT-C Yudi Méndez CLINICAL DATA ASSISTANT Work Phone: [facility] Work Phone: Encounters Encounter Date Encounter Type Care Provider Facility Start: 05-14-2025 ambulatory Yudi Méndez CLINICAL DATA ASSISTANT Facility :[facility] [place] [facility] Start: 05-07-2025 End: 05-07-[address] Nelly Gay MD -[facility] Work Phone: Start: 05-07-2025 End: 05-07-2025 ambulatory Yudi Méndez CLINICAL DATA ASSISTANT-C Work Phone: -[facility] Start: 04-30-2025 End: 04-30-2025 Patient encounter procedure Manjula Goldman CNM -[facility] Work Phone: Start: 04-30-2025 End: 04-30-2025 ambulatory Yudi Méndez CLINICAL DATA ASSISTANT-C Work Phone: -[facility] Start: 04-24-2025 End: 04-24-[address] Nelly Gay MD -[facility] Work Phone: Start: 04-24-2025 End: 04-24-2025 ambulatory Yudi Méndez CLINICAL DATA ASSISTANT-C Work Phone: -[facility] Start: 04-16-2025 End: 04-16-[address] Carline Escobar DO -[facility] Work Phone: Start: 04-16-2025 End: 04-16-2025 ambulatory Yudi Méndez CLINICAL DATA ASSISTANT-C Work Phone: -[facility] Start: 04-16-2025 End: 04-16-2025 ambulatory Yudi Méndez CLINICAL DATA ASSISTANT Facility:[facility] Start: 03-31-2025 End: 03-31-2025 Patient encounter procedure Tania Gutiérrez CLINICAL DATA ASSISTANT-C -[facility] Work Phone: Start: 03-31-2025 End: 03-31-2025 ambulatory Yudi Méndez CLINICAL DATA ASSISTANT-C Work Phone: -[facility] Start: 03-23-2025 End: 03-23-2025 Emergency department patient visit Yudi Méndez CLINICAL DATA ASSISTANT-C Work Phone: -Emergency Department Work Phone: Start: 03-19-2025 End: 03-19-2025 Patient encounter procedure Manjula Goldman CNM -[facility] @ Start: 03-19-2025 End: 03-19-2025 ambulatory Yudi Méndez CLINICAL DATA ASSISTANT-C Work Phone: -[facility] @ Start: 03-07-2025 End: 03-07-[address] Nelly Gay MD -[facility] Work Phone: Start: 03-07-2025 End: 03-07-2025 ambulatory Yudi Méndez CLINICAL DATA ASSISTANT-C Work Phone: -[facility] Start: 02-19-2025 End: 02-19-2025 Patient encounter procedure Manjula Goldman CNM -[facility] @ Start: 02-19-2025 End: 02-19-2025 ambulatory Yudi Méndez CLINICAL DATA ASSISTANT-C Work Phone: -[facility] @ Start: 01-29-2025 End: 01-29-[address] Carline Escobar DO -[facility] Work Phone: Start: 01-29-2025 End: 01-29-2025 ambulatory Yudi Méndez CLINICAL DATA ASSISTANT-C Work Phone: [facility] Work Phone: Start: 01-29-2025 End: 01-29-2025 ambulatory Nelly [facility] Facility:[facility] Start: 01-01-2025 End: 01-01-2025 Patient encounter procedure Manjula SCHNEIDER -[facility] @ Start: 01-01-2025 End: 01-01-2025 ambulatory Yudi Méndez NP-C Work Phone: [facility] Work Phone: Start: 12-17-2024 End: 12-17-2024 ambulatory YUDI Rice [facility] Start: 11-27-2024 End: 11-27-2024 Patient encounter procedure Manjula Goldman CNM -[facility] @ Start: 11-27-2024 End: 11-27-2024 ambulatory Yudi Méndez NP Facility:[facility] Start: 11-26-2024 End: 11-26-[address] Ravinder Suazo MD -Laboratory, Specimen Work Phone: Start: 11-26-2024 End: 11-26-[address] Ravinder Suazo MD -[facility] Work Phone: Start: 11-26-2024 End: 11-26-2024 ambulatory Ravinder Suazo Facility:[facility] Start: 11-26-2024 End: 11-26-2024 ambulatory Ravinder Suazo Facility:[facility] Start: 11-01-2024 End: 11-01-[address] Carline Escobar DO -[facility] Work Phone: Start: 11-01-2024 End: 11-01-2024 ambulatory Yudi Méndez CLINICAL DATA ASSISTANT Facility:[facility] Start: 10-11-2024 End: 10-11-2024 ambulatory YUDI MÉNDEZ Kit Castaneda [facility] Start: 10-04-2024 End: 10-04-2024 Patient encounter procedure Manjula Goldman [facility] -[facility] Work Phone: Start: 10-04-2024 End: 10-04-2024 ambulatory Yudi Méndez CLINICAL DATA ASSISTANT Facility:[facility] Start: 10-04-2024 End: 10-04-2024 ambulatory Yudi Méndez CLINICAL DATA ASSISTANT Facility:[facility] Start: 06-29-2023 End: 06-29-2023 ambulatory CLINICAL DATA ASSISTANT-C Yudi Méndez CLINICAL DATA ASSISTANT Work Phone: [facility] Work Phone: Start: 06-29-2023 End: 06-29-2023 Patient encounter procedure CLINICAL DATA ASSISTANT-C Yudi Méndez CLINICAL DATA ASSISTANT Work Phone: [facility] Work Phone: Start: 03-06-2023 End: 03-06-2023 Patient encounter procedure CLINICAL DATA ASSISTANT-C Yudi Méndez CLINICAL DATA ASSISTANT Work Phone: [facility] Work Phone: Start: 01-25-2023 Non-patient / Non-visit CLINICAL DATA ASSISTANT-C Yudi Méndez CLINICAL DATA ASSISTANT Work Phone: [facility] Start: 01-24-2023 Non-patient / Non-visit CLINICAL DATA ASSISTANT-C Yudi Méndez CLINICAL DATA ASSISTANT Work Phone: [facility] Start: 01-23-2023 Non-patient / Non-visit CLINICAL DATA ASSISTANT-C Yudi Méndez CLINICAL DATA ASSISTANT Work Phone: [facility] Start: 01-23-2023 End: 01-25-2023 Evaluation and management of inpatient CLINICAL DATA ASSISTANT-C Yudi Méndez CLINICAL DATA ASSISTANT Work Phone: [facility] Start: 01-18-2023 End: 01-18-2023 Patient encounter procedure CLINICAL DATA ASSISTANT-C Yudi Méndez CLINICAL DATA ASSISTANT Work Phone: [facility] Start: 01-09-2023 End: 01-09-2023 Patient encounter procedure CLINICAL DATA ASSISTANT-C Yudi Méndez CLINICAL DATA ASSISTANT Work Phone: [facility] Start: 01-03-2023 End: 01-03-2023 Patient encounter procedure CLINICAL DATA ASSISTANT-C Yudi Méndez CLINICAL DATA ASSISTANT Work Phone: [facility] Start: 12-28-2022 End: 12-28-2022 Patient encounter procedure CLINICAL DATA ASSISTANT-C Yudi Méndez CLINICAL DATA ASSISTANT Work Phone: [facility] Start: 12-20-2022 End: 12-20-2022 ambulatory CLINICAL DATA ASSISTANT-C Yudi Méndez CLINICAL DATA ASSISTANT Work Phone: [facility] Work Phone: Start: 12-20-2022 End: 12-20-2022 Patient encounter procedure CLINICAL DATA ASSISTANT-C Yudi Méndez CLINICAL DATA ASSISTANT Work Phone: [facility] Start: 12-07-2022 End: 12-07-2022 Patient encounter procedure CLINICAL DATA ASSISTANT-C Yudi Méndez CLINICAL DATA ASSISTANT Work Phone: [facility] Start: 11-22-2022 End: 11-22-2022 ambulatory CLINICAL DATA ASSISTANT-C Yudi Méndez CLINICAL DATA ASSISTANT Work Phone: [facility] Work Phone: Start: 11-22-2022 End: 11-22-2022 Patient encounter procedure CLINICAL DATA ASSISTANT-C Yudi Méndez CLINICAL DATA ASSISTANT Work Phone: [facility] Start: 11-09-2022 End: 11-09-2022 Patient encounter procedure CLINICAL DATA ASSISTANT-C Yudi Méndez CLINICAL DATA ASSISTANT Work Phone: [facility] Start: 10-31-2022 End: 10-31-2022 ambulatory CLINICAL DATA ASSISTANT-C Yudi Méndez CLINICAL DATA ASSISTANT Work Phone: [facility] Work Phone: Start: 10-31-2022 End: 10-31-2022 Patient encounter procedure CLINICAL DATA ASSISTANT-C Yudi Méndez CLINICAL DATA ASSISTANT Work Phone: [facility] Start: 10-27-2022 End: 10-27-2022 ambulatory CLINICAL DATA ASSISTANT-C Yudi Méndez CLINICAL DATA ASSISTANT Work Phone: [facility] Work Phone: Start: 10-27-2022 End: 10-27-2022 Patient encounter procedure CLINICAL DATA ASSISTANT-C Yudi Méndez CLINICAL DATA ASSISTANT Work Phone: [facility] Start: 10-03-2022 End: 10-03-2022 Patient encounter procedure CLINICAL DATA ASSISTANT-C Yudi Méndez CLINICAL DATA ASSISTANT Work Phone: [facility] Start: 09-05-2022 End: 09-05-2022 Patient encounter procedure CLINICAL DATA ASSISTANT-C Yudi Méndez CLINICAL DATA ASSISTANT Work Phone: [facility] Start: 08-03-2022 End: 08-03-2022 Patient encounter procedure CLINICAL DATA ASSISTANT-C Yudi Méndez CLINICAL DATA ASSISTANT Work Phone: [facility] Start: 07-04-2022 End: 07-04-2022 ambulatory CLINICAL DATA ASSISTANT-C Yudi Méndez CLINICAL DATA ASSISTANT Work Phone: [facility] Work Phone: Start: 07-04-2022 End: 07-04-2022 Patient encounter procedure CLINICAL DATA ASSISTANT-C Yudi Méndez CLINICAL DATA ASSISTANT Work Phone: [facility] Start: 06-08-2022 End: 06-08-2022 ambulatory CLINICAL DATA ASSISTANT-C Yudi Méndez CLINICAL DATA ASSISTANT Work Phone: [facility] Work Phone: Start: 06-08-2022 End: 06-08-2022 Patient encounter procedure CLINICAL DATA ASSISTANT-C Yudi Méndez CLINICAL DATA ASSISTANT Work Phone: [facility] Start: 06-08-2022 End: 06-08-2022 Patient encounter procedure CLINICAL DATA ASSISTANT-C Yudi Méndez CLINICAL DATA ASSISTANT Work Phone: [facility] Start: 03-30-2022 End: 03-30-2022 Patient encounter procedure CLINICAL DATA ASSISTANT-C Yudi Méndez CLINICAL DATA ASSISTANT Work Phone: [facility] Procedures Date Procedure Procedure Detail Performing Clinician Start: 04-16-2025 Beta-hemolytic Strep tococcus culture Yudi Méndez CLINICAL DATA ASSISTANT-C Work Phone: Start: 01-29-2025 Lead measurement Yudi Méndez CLINICAL DATA ASSISTANT-C Work Phone: Comment on above: Testing performed by Inductively coupled plasma/MassSpectrometry.Analysis by inductively coupled plasma/massspectrometry (ICP/MS) Environmental Exposure: WHO Recommendation <5.0 Occupational Exposure: OSHA Lead Std 40.0 JAMAR 30.0 Detection Limit = 1.0Performed at: [facility] [address] [id number] Director: Guzman Darnell PhD, Phone: [phone] Start: 01-29-2025 Serologic test for syphilis Yudi Méndez CLINICAL DATA ASSISTANT-C Work Phone: Start: 10-04-2024 Liquid based cervica l cytology screening Yudi Méndez CLINICAL DATA ASSISTANT-C Work Phone: Comment on above: NEGATIVE FOR INTRAEP ITHELIAL LESION OR MALIGNANCY. This liquid based Th inPrep(R) pap test was screened withthe use of an image guided system. The HPV DNA reflex c adriana were not met with this specimenresult therefore, no HPV testing was performed.Performed at: [facility] [employer] [id number] Director: Chayo Yi MD, Phone: [phone] Start: 10-04-2024 Hepatitis B surface antigen measurement Yudi Méndez CLINICAL DATA ASSISTANT-C Work Phone: Start: 10-04-2024 Hepatitis C antibody measurement Yudi Méndez CLINICAL DATA ASSISTANT-C Work Phone: Comment on above: Non Reactive: < 0.8 Equivocal: >/= 0.8 to < 1.0 Reactive: >/= 1.0The [facility] requires that a reactive/equivocal HCV antibody result be sent out for confirmation. HCV Quant by PCR testing. Start: 10-04-2024 Rubella IgG measurement Yudi Méndez CLINICAL DATA ASSISTANT-C Work Phone: Comment on above: Antibody Results Int erpretation of Immune Status Non Reactive Presumed Non-Immune Equivocal Equivocal Reactive Presumed Immune Start: 10-04-2024 Urine culture Yudi Robert is CLINICAL DATA ASSISTANT-C Work Phone: Start: 12-20-2022 Ultrasound scan for growth CLINICAL DATA ASSISTANT-C Yudi Méndez CLINICAL DATA ASSISTANT Work Phone: Group B Streptococcu s Culture CLINICAL DATA ASSISTANT-C Yudi Méndez CLINICAL DATA ASSISTANT Work Phone: Urine culture CLINICAL DATA ASSISTANT-C Yudi Robert is CLINICAL DATA ASSISTANT Work Phone: Plan of Treatment Date Care Activity Detail Author Start: 03-23-2025 [facility] Start: 01-29-2025 CBC W Auto Different ial panel - Blood [facility] Start: 01-29-2025 Measurement of gluco se 2 hours after glucose challenge for glucose tolerance test [facility] Start: 01-29-2025 Serologic test for syphilis [facility] Start: 01-29-2025 T4 free measurement [facility] Start: 01-29-2025 Thyroid stimulating hormone measurement [facility] Start: 01-29-2025 [facility] Start: 01-25-2023 Patient discharge [facility] Start: 01-23-2023 Administration of medication [facility] Start: 01-23-2023 Application of ice c ollar, cap or bag [facility] Start: 01-23-2023 Catheterization of vein [facility] Start: 01-23-2023 Introduction of urinary catheter [facility] Start: 01-23-2023 Measuring intake and output [facility] Start: 01-23-2023 Notification of physician [facility] Start: 01-23-2023 Procedure discontinued [facility] Start: 01-23-2023 Provision of activity privileges [facility] Start: 01-23-2023 Vital signs measurements [facility] Start: 01-23-2023 [facility] Start: 01-23-2023 Admission procedure [facility] CBC W Auto Different ial panel - Blood [facility] Work Phone: CBC W Auto Different ial panel - Blood [facility] Erythrocyte mean cor puscular volume determination [facility] Hematocrit [Volume F raction] of Blood [facility] Hemoglobin [Mass/volume] in Blood [facility] Hepatitis B surface antigen measurement [facility] Work Phone: Hepatitis C antibody measurement [facility] Work Phone: HIV 1+2 Ab+HIV1 p24 Ag [Presence] in Serum or Plasma by Immunoassay [facility] Work Phone: Lead measurement, qu antitative, blood [facility] Leukocytes [#/volume] in Blood [facility] Mean corpuscular hem oglobin concentration determination [facility] Mean corpuscular hem oglobin determination [facility] Measurement of gluco se 2 hours after glucose challenge for glucose tolerance test [facility] bilirubin p soham [Mass/volume] - Serum or Plasma [facility] Work Phone: Neutrophil count [facility] Neutrophil percent d ifferential count [facility] Patient Education [facility] Work Phone: Patient referral [facility] Work Phone: Platelets [#/volume] in Blood [facility] Red blood cell count [facility] Red cell distributio n width determination [facility] Rubella IgG measurement [facility] Work Phone: Serologic test for syphilis [facility] Streptococcus agalac tiae [Presence] in Unspecified specimen by Organism specific culture [facility] T4 free measurement [facility] Thyroid stimulating hormone measurement [facility] Treponema sp Ab [Pre sence] in Serum [facility] Work Phone: Ultrasound scan for growth [facility] Immunizations Immunization Date Immunization Notes Care Provider Anant mejia 02-19-2025 tetanus toxoid, redu shelia diphtheria toxoid, and acellular pertussis vaccine, adsorbed Yudi Méndez CLINICAL DATA ASSISTANT-C Work Phone: [facility] 10-27-2022 tetanus toxoid, redu shelia diphtheria toxoid, and acellular pertussis vaccine, adsorbed CLINICAL DATA ASSISTANT-C Yudi Méndez CLINICAL DATA ASSISTANT Work Phone: [facility] Payers Date Payer Category Payer Self-pay 2024 Unknown [id number] 1995 Unknown [id number] 1995 Unknown [id number] Unknown [id number] Unknown [employer] [id number] e [id number] Unknown [id number] 2.16.8 [id number] Unknown [id number] .16.8 [id number] Unknown [id number] 2.16.8 40.1.803532.3.579.2.462 Unknown [id number] 2.16.8 40.1.339206.3.579.2.462 Unknown [id number] 2.16.8 40.1.366109.3.579.2.462 Unknown [id number] 2.16.8 40.1.214474.3.579.2.462 Unknown [id number] 2.16.8 40.1.427832.3.579.2.462 Unknown [id number] 2.16.8 40.1.159341.3.579.2.462 Unknown [id number] 2.16.8 40.1.594764.3.579.2.462 Unknown [id number] 2.16.8 40.1.487501.3.579.2.462 Unknown [id number] 2.16.8 40.1.067017.3.579.2.462 Unknown [id number] 2.16.8 40.1.713066.3.579.2.462 Unknown [id number] 2.16.8 40.1.471497.3.579.2.462 Unknown [id number] 2.16.8 40.1.384265.3.579.2.462 Unknown [id number] 2.16.8 40.1.881267.3.579.2.462 Unknown [id number] 2.16.8 40.1.237054.3.579.2.462 Unknown [id number] 2.16.8 40.1.683691.3.579.2.462 Unknown [id number] 2.16.8 40.1.872915.3.579.2.462 Unknown [id number] 2.16.8 40.1.601330.3.579.2.462 Unknown [id number] 2.16.8 40.1.559417.3.579.2.462 Social History Date Type Detail Facility Start: 06-08-2022 End: 03-06-2023 Tobacco smoking status NHIS Unknown if ever smoked [facility] Start: 1995 Sex Assigned At Female [facility] Start: 09-20-2024 End: 03-23-2025 Tobacco smoking status NHIS Never smoked tobacco (finding) [facility] Sex Female [facility] Goals Date Patient Goal Desired Activity /State Clinical Notes 06-08-2022 to 05-07-2025 Note Date & Type Note Facility 05-07-2025 Progress note [facility] 05-07-2025 Progress note Note Date/Time May 07, 2025 4:08pm [facility] [address], [address] [place] [address] OFFICE VISIT Date of Service: 05/07/25 MR#: [id number] Acct: [id number] Name: JIMMY ATWOOD Rep #: [id number] : 1995 Provider: Dr. 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 Date Name GA/Weeks Outcome Route Bth Weight Infant Gen Labor Lgth Anesthesia Del Locatn Provider FOB 01/23/23 Cm 41 live - full term 9#1oz Male epid ural [facility] HPI 39wk ob Details: JIMMY ATWOOD is [...] Declines NIPT. would like some appts in [facility]. 11/01/24 -?-?-?-?-?-?-?-?-?-?-?-?- 12w 2d 150 lb [...] POC Urinalysis 2 Dip (Clinic) Today 05/07/25 [id number] <Electronically signed by Nelly del rio MD> Date _ Nelly Kumar Signature: Date (if applicable) CC: ~ [facility] Work Phone: 1(362) 824-897709-10-2025 [facility] [address] [place] [address], [address] [place] [address] OFFICE VISIT Date of Service: 04/30/25 MR#: [id number] Acct: [id number] Name: JIMMY ATWOOD Rep #: [id number] : 1995 Provider: QUITA Goldman Age/Sex: 30/F Location: [facility] Status: Signed Intake Vital Signs 03/31/25 15:44 04/24/25 13:50 04/30/25 15:00 Height 5 ft 7 in 5 ft 7 in 5 ft 7 in Weight: 189 lb BMI 29.6 BP 118/72 Intake Visit Reasons: 38wk ob Chief Complaint: 38wk OB Analytics Consultant Required: No Is patient in pain?: No [...] 1 current occupational status: employed 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 Date Name GA/Weeks Outcome Route Bth Weight Gen Labor Lgth Ane sthesia Del Locatn Provider FOB 01/23/23 Cm 41 live - full term 9#1oz Male epid ural [facility] HPI 38wk ob Details: JIMMY ATWOOD is [...] Declines NIPT. would like some appts in [facility]. 11/01/24 -?-?-?-?-?-?-?-?-?-?-?-?- 12w 2d 150 lb [...] Cosigner Signature: Date (if applicable) CC: ~ [facility]09-10-2025 Progress note Author Manjula Goldman [facility] Note Date/Time April 30, 2025 3:12pm [facility] [address], [address] [place] [address] OFFICE VISIT Date of Service: 04/30/25 MR#: [id number] Acct: [id number] Name: JIMMY ATWOOD Rep #: [id number] : 1995 Provider: QUITA Goldman Age/Sex: 30/F Location: [facility] Status: Signed Intake Vital Signs 03/31/25 15:44 04/24/25 13:50 04/30/25 15:00 Height 5 ft 7 in 5 ft 7 in 5 ft 7 in Weight: 189 lb BMI 29.6 BP 118/72 Intake Visit Reasons: 38wk ob Chief Complaint: 38wk OB Analytics Consultant Required: No Is patient in pain?: No [...] 1 current occupational status: employed 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 Date Name GA/Weeks Outcome Route Bth Weight Infant Gen Labor Lgth Ane sthesia Del Locatn Provider FOB 01/23/23 Cm 41 live - full term 9#1oz Male epid ural [facility] HPI 38wk ob Details: JIMMY ATWOOD is [...] Declines NIPT. would like some appts in [facility]. 11/01/24 -?-?-?-?-?-?-?-?-?-?-?-?- 12w 2d 150 lb [...] this visit. GA appropriate handout given. 04/30/25 [id number] <Electronically signed by Manjula waters CNM> Date _ Manjula Goldman CNM Cosigner Signature: Date (if applicable) CC: ~ [facility] Work Phone: 1(462) 383-260109-04-2025 [facility] [address], [place] [id number] OFFICE VISIT Date of Service: 04/24/25 MR#: [id number] Acct: [id number] Name: JIMMY ATWOOD Rep #: [id number] : 1995 Provider: Dr. 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 would like some appts in [facility]. 11/01/24 -?-?-?-?-?-?-?-?-?-?-?-?- 12w 2d 150 lb [...] of Preeclampsia, Labor Signs, InfantFeeding No , [place] Education and Family Medical Leave or Disability [...] Cosigner Signature: Date (if applicable) CC: ~ [facility]09-04-2025 Progress note Author Nelly Gay [facility] Note Date/Time April 24, 2025 2:21pm [facility] [address] [place] [address], [address] [place] [address] OFFICE VISIT Date of Service: 04/24/25 MR#: [id number] Acct: [id number] Name: JIMMY ATWOOD Rep #: [id number] : 1995 Provider: Dr. 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 Date Name GA/Weeks Outcome Route Bth Weight Gen Labor Lgth Anesthesia Del Locatn Provider FOB 01/23/23 Cm 41 live - full term 9#1oz Male epid ural [facility] Payal Willard HPI 37wk ob Details: [...] Declines NIPT. would like some appts in [facility]. 11/01/24 -?-?-?-?-?-?-?-?-?-?-?-?- 12w 2d 150 lb [...] of Preeclampsia, Labor Signs, Feeding No , [employer] Education and Family Medical Leave or Disability [...] Kumar Signature: Date (if applicable) CC: ~ [facility] Work Phone: [phone]) 140-383608-27-2025 [facility] Women's [address], [address] [place] [address] OFFICE VISIT Date of Service: 04/16/25 MR#: [id number] Acct: [id number] Name: JIMMY ATWOOD Rep #: [id number] : 1995 Provider: Dr. 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 Date Name GA/Weeks Outcome Route Bth Weight Gen Labor Lgth Anesthesia Del Locatn Provider FOB 01/23/23 Cm 41 live - full term 9#1oz Male epid ural [facility] Payal Hutchins Sudheer HPI 36wk ob [...] Declines NIPT. would like some appts in [facility]. 11/01/24 -?-?-?-?-?-?-?-?-?-?-?-?- 12w 2d 150 lb [...] Cosigner Signature: Date (if applicable) CC: ~ [facility]08-27-2025 Progress note Author Carline Bolden [facility] Note Date/Time April 16, 2025 3: 44pm [facility] Women's [address], [address] [place] [address] OFFICE VISIT Date of Service: 04/16/25 MR#: [id number] Acct: [id number] Name: ADANJIMMY Moody Rep #: [id number] : 1995 Provider: Dr. 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 Date Name GA/Weeks Outcome Route Bth Weight Gen Labor Lgth Anesthesia Del Locatn Provider FOB 01/23/23 Cm 41 live - full term 9#1oz Male epid ural [facility] Payal Willard HPI 36wk ob Details: [...] Declines NIPT. would like some appts in [place] [facility]. 11/01/24 -?-?-?-?-?-?-?-?-?-?-?-?- 12w 2d 150 lb [...] lof go od fm no reuglar ctx [employer] [facility] [employer] signed 03/19/25 -?-?-?-?-?-?-?-?-?-?-?-?- 32w 0d 183 lb [...] of Preeclampsia, Labor Signs, Feeding No , [employer] Education and Family Medical Leave or Disability [...] of other normal , third trimester 04/16/25 1548 <Electronically signed by Carline Sharif DO> Date _ Carline Escobar DO Cosigner Signature: Date (if applicable) CC: ~ [facility] Work Phone: 1(667) 932-865207-30-2025 [facility] Care [address] [place] [address], [address] [place] [address] OFFICE VISIT Date of Service: 03/19/25 MR#: [id number] Acct: [id number] Name: JIMMY ATWOOD Rep #: [id number] : 1995 Provider: QUITA Goldman Age/Sex: 29/F Location: [facility] Status: Signed Intake Vital Signs 01/29/25 15:15 [...] 1 current occupational status: employed 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 Date Name GA/Weeks Outcome Route Bth Weight Gen Labor Lgth Anesthesia Del Locatn Provider FOB 01/23/23 Cm 41 live - full term 9#1oz Male epid ural [facility] Payal Hutchins [place] HPI 32 wk ob Details: JIMMY ATWOOD [...] Declines NIPT. would like some appts in [facility]. 11/01/24 -?-?-?-?-?-?-?-?-?-?-?-?- 12w 2d 150 lb [...] of Preeclampsia, Labor Signs, InfantFeeding No , [employer] Education and Family Medical Leave or Disability [...] s QUITA> Date _ Manjula Goldman CNM [facility] Signature: Date (if applicable) CC: ~ [facility] [id number] [facility] Women's [address], [place] [address] OFFICE VISIT Date of Service: 02/19/25 MR#: [id number] Acct: [id number] Name: JIMMY ATWOOD Rep #: [id number] : 1995 Provider: QUITA Goldman Age/Sex: 29/F Location: [facility] Status: Signed with Addenda ADDENDUM by Tessa Hearn on 02/19/25 at 1154 Office Procedure Documentation entered by Tessa Hearn 02/19/25 11:54: Immunizations Boostrix Tdap 2.5 Lf unit-8 mcg-5 Lf/0.5 mL intramuscular syringe Performing Provider: Manjula Goldman CNM Performing Location: [facility] Administered by: Tessa Hearn on 02/19/25 11:52 Dose Route Admin Location Dispensed Lot Number Expiration Date NDC Business Solution Analyst 0.5 mL IM Right Deltoid 0.5 mL [id number] 10/19/26 79465-077-73 BETSY SEWELL-IDRIS VIS Given Date VIS Provided [...] 111/71 Intake Visit Reasons: 28 wk ob Analytics Consultant Required: No Is patient in pain?: No [...] 1 current occupational status: employed 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 would like some appts in [facility]. 11/01/24 -?-?-?-?-?-?-?-?-?-?-?-?- 12w 2d 150 lb [...] of Preeclampsia, Labor Signs, InfantFeeding No , [employer] Education and Family Medical Leave or Disability [...] Cosigner Signature: Date (if applicable) CC: ~ [facility]06-11-2025 Evaluation note* Diagnosis Onset Date Resolution Status [...] Thyroid nodule acute May 07, 2025 3:23pm [facility] Work Phone: [phone]) 786-402406-11-2025 [facility] [address] [place] [address], [address] [place] [address] OFFICE VISIT Date of Service: 01/29/25 MR#: [id number] Acct: [id number] Name: JIMMY ATWOOD Rep #: [id number] : 1995 Provider: Dr. 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 would like some appts in [facility]. 11/01/24 -?-?-?-?-?-?-?-?-?-?-?-?- 12w 2d 150 lb [...] of Preeclampsia, Labor Signs, InfantFeeding No , [place] Education and Family Medical Leave or Disability [...] Cosigner Signature: Date (if applicable) CC: ~ [facility]06-11-2025 Progress note Author Carline Bodlen [facility] Note Date/Time January 29, 2025 3:43 pm [facility] Women's [address], [address] [place] [address] OFFICE VISIT Date of Service: 01/29/25 MR#: [id number] Acct: [id number] Name: JIMMY ATWOOD Rep #: [id number] : 1995 Provider: Dr. 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 would like some appts in [place]. 11/01/24 -?-?-?-?-?-?-?-?-?-?-?-?- 12w 2d 150 lb [...] Cosigner Signature: Date (if applicable) CC: ~ [facility] Work Phone: 1(709) 741-516205-14-2025 Evaluation note* Diagnosis Onset Date Resolution Status [...] 2025 3:41pm Thyroid nodule acute March 3:41pm [facility] Work Phone: 1([phone]) 178-605605-14-2025 Evaluation note* Diagnosis Onset Date Resolution Status [...] 2025 3:24pm Thyroid nodule acute March 3:24pm [facility] Work Phone: 1(108) 338-378605-14-2025 Evaluation note* Diagnosis Onset Date Resolution Status [...] Thyroid nodule acute April 24, 2025 1:48pm [facility] Work Phone: 1(645) 261-616205-14-2025 Evaluation note* Diagnosis Onset Date Resolution Status [...] Thyroid nodule acute April 30, 2025 2:57pm [facility] Work Phone: 1(222) 448-173004-08-2025 Evaluation note* Diagnosis Onset Date Resolution Status [...] Thyroid nodule acute March 07, 2025 4:05pm [facility] Work Phone: [phone]) 600-946104-08-2025 Evaluation note* Diagnosis Onset Date Resolution Status [...] Thyroid nodule acute March 19, 2025 12:30pm [facility] Work Phone: [phone] Evaluation note* Diagnosis Onset Date Resolution Status [...] Thyroid nodule acute January 29, 2025 3:01pm [facility] Work Phone: 1([phone]) 130-414903-14-2025 Evaluation note* Diagnosis Onset Date Resolution Status [...] Thyroid nodule acute February 19, 2025 11:26am [facility] Work Phone: 1([phone]) 544-742002-14-2025 Evaluation note* Diagnosis Onset Date Resolution Status [...] Thyroid nodule acute January 01, 2025 11:22am [facility] Work Phone: [phone] Evaluation note* Diagnosis Onset Date Resolution Status [...] Thyroid nodule acute January 29, 2025 3:01pm [facility] Work Phone: [phone]) 351-985406-07-2023 Discharge summary Author Manjula Goldman [facility] January 25, 2023 8:48am Note Date/Time January 25, 2023 8:48a m [facility] Medical Records Department [address] [place] [address] Instructions for Home/Discharge Instructions 01/25/23 0847 MR#: [id number] Acct: [id number] Name: JIMMY ATWOOD Rep #:[id number] : [...] NP Discharge Orders/Prescriptions Prescriptions: No Action PNV no.934-[id number]-ydu-mai-[id number] 180 mcg-35 mg- 25 mg-5 mg tablet,chewable 1 tab PO DAILY azithromycin [Zithromax Z-Aj] 250 mg tablet 250 mg PO DAILY 6 Days Qty: 6 0RF Rx Instructions: start on day 2 of therapy ferrous sulfate [iron] 325 mg (65 mg iron) Tablet 325 mg PO DAILY Referrals / Follow Up: Yudi Méndez NP, CLINICAL DATA ASSISTANT-C [Primary Care Provider] - Disposition Disposition (needs filled in before D/C Order can be placed): Home, Self Care 01/25/23 0848<Electronically signed by Manjula Goldman CNM>Manjula Goldman CNM CC: JUAN FC Yudi Méndez ~ Signed [facility] Work Phone: 1([phone]) 269-535806-07-2023 Progress note Author Manjula Goldman [facility] January 25, 2023 8:47am Note Date/Time January 25, 2023 8:47a m [facility] Medical Records Department [address] [place] [address] Progress Note - OBGYN 01/25/23 0845 MR#: [id number] Acct: [id number] Name: JIMMY ATWOOD Rep #:[id number] : 1995 27 From: Manjula Goldman CNM PCP: MANPREET Calvin Status:ADM IN Location: [id number] Subjective Subjective Patient doing well without complaints. [...] (4) Supervision of normal first : COMMENT: [id number], PARAG 01/16/23, boy Cm Spouse Sudheer Charges/Coding Multi Select Codes Urinary/Genital Urinary/Genital CPT Codes: No Charge 01/25/23 0847 <Electronically signed by Manjula Goldman CNM> Cosigner Signature (if applicable): CC: ~ Signed [facility] Work Phone: 1(711) 486-247106-06-2023 Progress note Author Manjula Goldman [facility] January 24, 2023 12:24pm Note Date/Time January 24, 2023 12:24 pm [facility] Medical Records Department [address] [place] [address] Progress Note - OBGYN 01/24/23 1222 MR#: [id number] Acct: [id number] Name: JIMMY ATWOOD Rep #:[id number] : 1995 27 From: Manjula Goldman CNM PCP: MANPREET Calvin Status:ADM IN Location: PV654-1 Subjective Subjective Patient doing well without complaints. [...] Cosigner Signature (if applicable): CC: ~ Signed [facility] Work Phone: 1([phone]) 595-326806-06-2023 Discharge summary Author Payal Hutchins [facility] January 23, 2023 10:20pm Note Date/Time January 23, 2023 10:20 pm [facility] [address] [place] [address] Instructions for Home/Discharge Instructions 01/23/232219 MR#: [id number] Acct: [id number] Name: JIMMY ATWOOD Rep #:[id number] : [...] NP Discharge Orders/Prescriptions Prescriptions: No Action PNV no.611-ZJ-as6-crv-evy-tkeg 180 mcg-35 mg- 25 mg-5 mg tablet,chewable 1 tab PO DAILY azithromycin [Zithromax Z-Aj] 250 mg tablet 250 mg PO DAILY 6 Days Qty: 6 0RF Rx Instructions: start on day 2 of therapy ferrous sulfate [iron] 325 mg (65 mg iron) Tablet 325 mg PO DAILY Referrals / Follow Up: Yudi Méndez NP, CLINICAL DATA ASSISTANT-C [Primary Care Provider] - Disposition Disposition (needs filled in before D/C Order can be placed): Home, Self Care 01/23/232219<Electronically signed by Payal Hutchins CNM>Payal Hutchins CNM CC: KRISTEN-C Yudi Méndez ~ Signed [facility] Work Phone: 1([phone]) [phone] Procedure [facility] 01-23-2023 History and physical note Author Payal Hutchins [facility] January 23, 2023 8:20am Note Date/Time January 23, 2023 8:20a m [facility] Medical Records Department [address] [place] [address] 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 course complicated by abnormal glucose screening with inability to tolerate 3 hour, tested glucose x2 weeks with normal glucose and fasting sugars again during 38 weeks with normal fastings. growth scan at 36 weeks % EFW. 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 FMLA papers given to community outreach specialist. Blood sugars reviewed and discussed with JV. [...] Hep Bs Antigen Non-Reactive (Nonreactive) Chlamydia DNA (JOES J) Negative (Negative) Neisseria gonorrhoeae DNA (JOSE [...] (4) Supervision of normal first : COMMENT: [id number], PARAG 01/16/23, boy [place] Spouse Sudheer (5) [...] Cosigner Signature (if applicable): CC: QUITA Hutchins; CLINICAL DATA ASSISTANTCarson Méndez~ Signed [facility] Work Phone: [phone]) 517-176510-19-2022 NotePap Smear Specimen AdequacyOctober 2021 11:08amComment.Satisfactory for evaluation. Endocervical and/or squamous metaplasticcells (endocervical component)are present.[employer]COAPImetrics INTERFACED A#[id number] Health [facility] Work Phone: Comment on above:Satisfactory for evaluation. Endocervical and/or squamous metaplasticcells (endocervical component)are present.06-08-2022 NotePap Smear Specimen AdequacyOctober 2021 10:08am Comment.Satisfactory for evaluation. Endocervical and/or squamous metaplasticcells (endocervical component)are present.[employer]CO[employer]Im[employer] INTERFACED A#[id number] Health [facility]burg Work Phone: Comfebs on above:Satisfactory for evaluation. Endocervical and/or squamous metaplasticcells (endocervical component)are present.Evaluation note* Diagnosis Onset Date Resolution Status Acute pharyngitis acute Contact with or suspected ex posure to other viral communicable disease acute acute Supervision of normal first acute [facility] Work Phone: Evaluation note* Diagnosis Onset Date Resolution Status Acute pharyngitis acute Contact with or suspected ex posure to other viral communicable disease acute acute Supervision of normal first acute Hyperbilirubinemia acute acute Supervision of normal first acute [facility] Work Phone: Evaluation note* Diagnosis Onset Date Resolution Status acute Supervision of normal first acute Hyperbilirubinemia resolved acute Supervision of normal first acute acute Supervision of normal first acute Abnormal glucose affecting acute Anemia during acut e acute Supervision of normal first acute [facility] Work Phone: evaluation note* Diagnosis Onset Date [...] e acute Supervision of normal first acute [facility] Work Phone: evaluation note* Diagnosis Onset Date [...] e acute Supervision of normal first acute [facility] Work Phone: evaluation note* Diagnosis Onset Date [...] normal first acute (spontaneous vaginal delivery) acute [facility] Work Phone: Evaluation note* Diagnosis Onset Date Resolution Status care and examination noneactive [facility] Work Phone: Hospital Discharge instructionsAdditional Instructions Use the prescription, 2 drops into your left eye 4 times a day for 5 days. If symptoms are not improving follow-up with your primary care doctor.[facility] Work Phone: Progress note Author Manjula Goldman [facility] Note Date/Time February 19, 2025 11:44 am [facility] [address], [address] [place] [address] OFFICE VISIT Date of Service: 02/19/25 MR#: [id number] Acct: [id number] Name: JIMMY ATWOOD Rep #: [id number] : 1995 Provider: QUITA Goldman Age/Sex: 29/F Location: [facility] Status: Signed with Addenda ADDENDUM by Tessa Hearn on 02/19/25 at 1154 Office Procedure Documentation entered by Tessa Hearn 02/19/25 11:54: Immunizations Boostrix Tdap 2.5 Lf unit-8 mcg-5 Lf/0.5 mL intramuscular syringe Performing Provider: Manjula Goldman CNM Performing Location: [facility] Administered by: Tessa Hearn on 02/19/25 11:52 Dose Route Admin Location Dispensed Lot Number Expiration Date NDC Business Solution Analyst 0.5 mL IM Right Deltoid 0.5 mL [id number] 10/19/26 20174-475-57 BETSY SEWELL-PASTEUR VIS Given Date VIS Provided [...] 111/71 Intake Visit Reasons: 28 wk ob Analytics Consultant Required: No Is patient in pain?: No [...] 1 current occupational status: employed 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 Date Name GA/Weeks Outcome Route Bth Weight Infant Gen Labor Lgth Anesthesia Del Locatn Provider FOB 01/23/23 Cm 41 live - full term 9#1oz Male epid ural [facility] Payal Willard HPI 28 wk ob [...] Declines NIPT. would like some appts in [place]. 11/01/24 -?-?-?-?-?-?-?-?-?-?-?-?- 12w 2d 150 lb [...] Preeclampsia, Labor Signs, Infant Feeding No , [employer] Education and Family Medical Leave or Disability [...] this visit. [place] appropriate handout given. 02/19/25 9922 <Electronically signed by Manjula waters CNM> Date _ Manjula Goldman CNM Cosigner Signature: Date (if applicable) CC: ~ [facility] Work Phone: Progress note Author Manjula Goldman [facility] Note Date/Time March 19, 2025 12:5 4pm [facility] [address], [address] [place] [address] OFFICE VISIT Date of Service: 03/19/25 MR#: [id number] Acct: [id number] Name: JIMMY ATWOOD Rep #: [id number] : 1995 Provider: QUITA Goldman Age/Sex: 29/F Location: [facility] Status: Signed Intake Vital Signs 01/29/25 15:15 [...] 1 current occupational status: employed 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 Date Name GA/Weeks Outcome Route Bth Weight Gen Labor Lgth Anesthesia Del Locatn Provider FOB 01/23/23 Cm 41 live - full term 9#1oz Male epid ural [facility] HPI 32 wk ob Details: JIMMY ATWOOD [...] Declines NIPT. would like some appts in [facility]. 11/01/24 -?-?-?-?-?-?-?-?-?-?-?-?- 12w 2d 150 lb [...] Preeclampsia, Labor Signs, Infant Feeding No , [employer] Education and Family Medical Leave or Disability [...] Cosigner Signature: Date (if applicable) CC: ~ [facility] Work Phone: Reason for referral (narrative)No reason for referral information availableKern Medical Center Work Phone: Summary Purpose Family History No Family History Records Found Relationship Condition Age at Onset Recorded Date/T arianna father Cardiac disease Unknown Advance Directives No Advanced Directives Records Found Advance Directive Response Recorded Date/ Time Living Will No January 23, 2023 7 :45am Power of Cord Maker No January 23, 2023 7:45am Advance Directive Response Recorded Date/ Time Living Will No January 23, 2023 6 :45am Power of Cord Maker No January 23, 2023 6:45am Advance Directive Response Recorded Date/ Time Do you have a Healthcare Power of Cord Maker? No March 23, 2025 1:16pm Chief Complaint [...] section and content) DATE CREATED AUTHOR 07/06/2020 [facility] DATE CREATED AUTHOR AUTHOR'S ORGANIZ ATION 10/12/2024 Kit Sosajordyn [facility] DATE CREATED AUTHOR AUTHOR'S ORGANIZ ATION 10/14/2024 [facility] DATE CREATED AUTHOR AUTHOR'S ORGANIZ ATION 10/15/2024 [facility] DATE CREATED AUTHOR AUTHOR'S ORGANIZ ATION 12/18/2024 [facility] DATE CREATED AUTHOR AUTHOR'S ORGANIZ ATION 05/10/2025 [facility] Goals (unrecognized section and content) [...] Active Member Role Status Brie Méndez NP, CLINICAL DATA ASSISTANT-C Primary Care Provider Active Team Status: Inactive Member Role Status Brie Méndez NP, CLINICAL DATA ASSISTANT-C Primary Care Provider, Referring Provider Active Dr. Carline Escobar DO Attending Provider Activ e Team Status: Inactive Member Role Status Brie Méndez NP, CLINICAL DATA ASSISTANT-C Primary Care Provider, Referring Provider Active Tania Gutiérrez CLINICAL DATA ASSISTANT, CLINICAL DATA ASSISTANT-C Attending Provider Active Team Status: Inactive Member Role Status Brie Méndez NP, CLINICAL DATA ASSISTANT-C Primary Care Provider, Referring Provider Active Dr. Nelly Gay MD Attending Provider Active Team Status: Inactive Member Role Status Brie Méndez NP, CLINICAL DATA ASSISTANT-C Primary Care Provider Active Dr. Nelly Gay MD Attending Provider, Referr ing Provider Active Team Status: Active Member Role Status Brie Méndez NP, CLINICAL DATA ASSISTANT-C Primary Care Provider Active Tania Gutiérrez NP, CLINICAL DATA ASSISTANT-C Attending Provider, Referring Provider Active Team Status: Inactive Member Role Status Brie Méndez NP, CLINICAL DATA ASSISTANT-C Primary Care Provider Active Tania Gutiérrez CLINICAL DATA ASSISTANT, CLINICAL DATA ASSISTANT-C Attending Provider, Referring Provider Active Team Status: Inactive Member Role Status Dates Yudi Méndez CLINICAL DATA ASSISTANT, CLINICAL DATA ASSISTANT-C Primary Care Provider, Referring Provider Active Manjula Goldman CNM Attending Provider Active Team Status: Inactive Member Role Status Dates Yudi Méndez CLINICAL DATA ASSISTANT, CLINICAL DATA ASSISTANT-C Primary Care Provider Active Manjula Goldman CNM Attending Provider, Referring Pro vider Active Dr. Carline Escobar DO Other Provider Active Team Status: Active Member Role Status Dates Yudi Méndez NP, CLINICAL DATA ASSISTANT-C Primary Care Provider Active Dr. Nelly Gay MD Admit Provider, Other Prov ider Active Payal Hutchins CNM Attending Provider Active Team Status: Active Member Role Status Dates Yudi Méndez CLINICAL DATA ASSISTANT, CLINICAL DATA ASSISTANT-C Primary Care Provider Active Payal Hutchins CNM Admit Provider, Other Provider A ctive Manujla Goldman CNM Attending Provider Active Team Status: Inactive Member Role Status Dates Yudi Méndez CLINICAL DATA ASSISTANT, CLINICAL DATA ASSISTANT-C Primary Care Provider Active Payal Hutchins CNM Admit Provider, Attending Provid er Active Team Status: Inactive Member Role Status Dates Yudi Méndez CLINICAL DATA ASSISTANT, CLINICAL DATA ASSISTANT-C Primary Care Provider Active Dr. Roxann Michaels MD Attending Provider, Referring Pro vider Active Team Status: Inactive Member Role Status Dates Yudi Méndez CLINICAL DATA ASSISTANT, CLINICAL DATA ASSISTANT-C Primary Care Provider Active Start: October 04, 2024 End: October 04, 2024 Yudi Méndez NP, CLINICAL DATA ASSISTANT-C Referring Provider Active S tart: October 04, 2024 End: October 04, 2024 Manjula Goldman CNM Attending Provider Active S tart: October 04, 2024 End: October 04, 2024 Team Status: Inactive Member Role Status Dates Yudi Méndez CLINICAL DATA ASSISTANT, CLINICAL DATA ASSISTANT-C Primary Care Provider Active Start: October 04, 2024 End: October 04, 2024 Manjula Goldman CNM Attending Provider Active S tart: October 04, 2024 End: October 04, 2024 Manjula Goldman CNM Referring Provider Active S tart: October 04, 2024 End: October 04, 2024 Team Status: Inactive Member Role Status Dates Yudi Méndez CLINICAL DATA ASSISTANT, CLINICAL DATA ASSISTANT-C Primary Care Provider Active Start: November 01, 2024 End: November 01, 2024 Yudi Méndez NP, CLINICAL DATA ASSISTANT-C Referring Provider Active S tart: November 01, 2024 End: November 01, 2024 Dr. Carline Escobar DO Attending Provider Activ e Start: November 01, 2024 End: November 01, 2024 Team Status: Inactive Member Role Status Dates Yudi Méndez CLINICAL DATA ASSISTANT, CLINICAL DATA ASSISTANT-C Primary Care Provider Active Start: November 26, 2024 End: November 26, 2024 Yudi Méndez CLINICAL DATA ASSISTANT, CLINICAL DATA ASSISTANT-C Referring Provider Active S tart: November 26, 2024 End: November 26, 2024 Dr. Ravinder Suazo MD Attending Provider Active Start: November 26, 2024 End: November 26, 2024 Team Status: Inactive Member Role Status Dates Yudi Méndez CLINICAL DATA ASSISTANT, CLINICAL DATA ASSISTANT-C Primary Care Provider Active Start: November 26, 2024 End: November 26, 2024 Dr. Ravinder Suazo MD Attending Provider Active Start: November 26, 2024 End: November 26, 2024 Dr. Ravinder Suazo MD Referring Provider Active Start: November 26, 2024 End: November 26, 2024 Team Status: Inactive Member Role Status Dates Yudi Méndez CLINICAL DATA ASSISTANT, CLINICAL DATA ASSISTANT-C Primary Care Provider Active Start: November 27, 2024 End: November 27, 2024 Yudi Méndez CLINICAL DATA ASSISTANT, CLINICAL DATA ASSISTANT-C Referring Provider Active S tart: November 27, 2024 End: November 27, 2024 Manjula Goldman CNM Attending Provider Active S tart: November 27, 2024 End: November 27, 2024 Team Status: Inactive Member Role Status Dates Yudi Méndez CLINICAL DATA ASSISTANT, CLINICAL DATA ASSISTANT-C Primary Care Provider Active Start: January 01, 2025 End: January 01, 2025 Yudi Méndez CLINICAL DATA ASSISTANT, CLINICAL DATA ASSISTANT-C Referring Provider Active S tart: January 01, 2025 End: January 01, 2025 Manjula Goldman CNM Attending Provider Active S tart: January 01, 2025 End: January 01, 2025 Team Status: Inactive Member Role Status Dates Yudi Méndez CLINICAL DATA ASSISTANT, CLINICAL DATA ASSISTANT-C Primary Care Provider Active Start: January 29, 2025 End: January 29, 2025 Yudi Méndez CLINICAL DATA ASSISTANT, CLINICAL DATA ASSISTANT-C Referring Provider Active S tart: January 29, 2025 End: January 29, 2025 Dr. Carline Escobar DO Attending Provider Activ e Start: January 29, 2025 End: January 29, 2025 Team Status: Active Member Role Status Dates Yudi Méndez CLINICAL DATA ASSISTANT, CLINICAL DATA ASSISTANT-C Primary Care Provider Active Start: January 29, 2025 Dr. Nelly Gay MD Attending Provider Active Start: January 29, 2025 Dr. Nelly Gay MD Referring Provider Active Start: January 29, 2025 Team Status: Inactive Member Role Status Dates Yudi Méndez CLINICAL DATA ASSISTANT, CLINICAL DATA ASSISTANT-C Primary Care Provider Active Start: January 29, 2025 End: January 29, 2025 Dr. Nelly Gay MD Attending Provider Active Start: January 29, 2025 End: January 29, 2025 Dr. Nelly Gay MD Referring Provider Active Start: January 29, 2025 End: January 29, 2025 Team Status: Active Member Role/Relationship Status Dates Yudi Méndez CLINICAL DATA ASSISTANT, CLINICAL DATA ASSISTANT-C Primary Care Provider Active Team Status: Inactive Member Role/Relationship Status Dates Yudi Méndez CLINICAL DATA ASSISTANT, CLINICAL DATA ASSISTANT-C Primary Care Provider Active Start: November 01, 2024 End: November 01, 2024 Yudi Méndez CLINICAL DATA ASSISTANT, CLINICAL DATA ASSISTANT-C Referring Provider Active S tart: November 01, 2024 End: November 01, 2024 Dr. Carline Escobar DO Attending Provider Activ e Start: November 01, 2024 End: November 01, 2024 Team Status: Inactive Member Role/Relationship Status Dates Yudi Méndez CLINICAL DATA ASSISTANT, CLINICAL DATA ASSISTANT-C Primary Care Provider Active Start: November 26, 2024 End: November 26, 2024 Yudi Méndez CLINICAL DATA ASSISTANT, CLINICAL DATA ASSISTANT-C Referring Provider Active S tart: November 26, 2024 End: November 26, 2024 Dr. Ravinder Suazo MD Attending Provider Active Start: November 26, 2024 End: November 26, 2024 Team Status: Inactive Member Role/Relationship Status Dates Yudi Méndez CLINICAL DATA ASSISTANT, CLINICAL DATA ASSISTANT-C Primary Care Provider Active Start: November 26, 2024 End: November 26, 2024 Dr. Ravinder Suazo MD Attending Provider Active Start: November 26, 2024 End: November 26, 2024 Dr. Ravinder Suazo MD Referring Provider Active Start: November 26, 2024 End: November 26, 2024 Team Status: Inactive Member Role/Relationship Status Dates Yudi Méndez CLINICAL DATA ASSISTANT, CLINICAL DATA ASSISTANT-C Primary Care Provider Active Start: November 27, 2024 End: November 27, 2024 Yudi Méndez CLINICAL DATA ASSISTANT, CLINICAL DATA ASSISTANT-C Referring Provider Active S tart: November 27, 2024 End: November 27, 2024 Manjula Goldman CNM Attending Provider Active S tart: November 27, 2024 End: November 27, 2024 Team Status: Inactive Member Role/Relationship Status Dates Yudi Méndez CLINICAL DATA ASSISTANT, CLINICAL DATA ASSISTANT-C Primary Care Provider Active Start: January 01, 2025 End: January 01, 2025 Yudi Méndez CLINICAL DATA ASSISTANT, CLINICAL DATA ASSISTANT-C Referring Provider Active S tart: January 01, 2025 End: January 01, 2025 Manjula Goldman CNM Attending Provider Active S tart: January 01, 2025 End: January 01, 2025 Team Status: Inactive Member Role/Relationship Status Dates Yudi Méndez CLINICAL DATA ASSISTANT, CLINICAL DATA ASSISTANT-C Primary Care Provider Active Start: January 29, 2025 End: January 29, 2025 Yudi Méndez CLINICAL DATA ASSISTANT, CLINICAL DATA ASSISTANT-C Referring Provider Active S tart: January 29, 2025 End: January 29, 2025 Dr. Carline Escobar DO Attending Provider Activ e Start: January 29, 2025 End: January 29, 2025 Team Status: Inactive Member Role/Relationship Status Dates Yudi Méndez CLINICAL DATA ASSISTANT, CLINICAL DATA ASSISTANT-C Primary Care Provider Active Start: January 29, 2025 End: January 29, 2025 Dr. Nelly Gay MD Attending Provider Active Start: January 29, 2025 End: January 29, 2025 Dr. Nelly Gay MD Referring Provider Active Start: January 29, 2025 End: January 29, 2025 Team Status: Inactive Member Role/Relationship Status Dates Yudi Méndez CLINICAL DATA ASSISTANT, CLINICAL DATA ASSISTANT-C Primary Care Provider Active Start: February 19, 2025 End: February 19, 2025 Yudi Méndez CLINICAL DATA ASSISTANT, CLINICAL DATA ASSISTANT-C Referring Provider Active S tart: February 19, 2025 End: February 19, 2025 Manjula Goldman CNM Attending Provider Active S tart: February 19, 2025 End: February 19, 2025 Team Status: Inactive Member Role/Relationship Status Dates Yudi Méndez CLINICAL DATA ASSISTANT, CLINICAL DATA ASSISTANT-C Primary Care Provider Active Start: November 26, 2024 End: November 26, 2024 Yudi Méndez CLINICAL DATA ASSISTANT, CLINICAL DATA ASSISTANT-C Referring Provider Active S tart: November 26, 2024 End: November 26, 2024 Dr. Ravinder Suazo MD Attending Provider Active Start: November 26, 2024 End: November 26, 2024 Team Status: Inactive Member Role/Relationship Status Dates Yudi Méndez CLINICAL DATA ASSISTANT, CLINICAL DATA ASSISTANT-C Primary Care Provider Active Start: November 26, 2024 End: November 26, 2024 Dr. Ravinder Suazo MD Attending Provider Active Start: November 26, 2024 End: November 26, 2024 Dr. Ravinder Suazo MD Referring Provider Active Start: November 26, 2024 End: November 26, 2024 Team Status: Inactive Member Role/Relationship Status Dates Yudi Méndez CLINICAL DATA ASSISTANT, CLINICAL DATA ASSISTANT-C Primary Care Provider Active Start: November 27, 2024 End: November 27, 2024 Yudi Méndez CLINICAL DATA ASSISTANT, CLINICAL DATA ASSISTANT-C Referring Provider Active S tart: November 27, 2024 End: November 27, 2024 Manjula Goldman CNM Attending Provider Active S tart: November 27, 2024 End: November 27, 2024 Team Status: Inactive Member Role/Relationship Status Dates Yudi Méndez CLINICAL DATA ASSISTANT, CLINICAL DATA ASSISTANT-C Primary Care Provider Active Start: January 01, 2025 End: January 01, 2025 Yudi Méndez CLINICAL DATA ASSISTANT, CLINICAL DATA ASSISTANT-C Referring Provider Active S tart: January 01, 2025 End: January 01, 2025 Manjula Goldman CNM Attending Provider Active S tart: January 01, 2025 End: January 01, 2025 Team Status: Inactive Member Role/Relationship Status Dates Yudi Méndez CLINICAL DATA ASSISTANT, CLINICAL DATA ASSISTANT-C Primary Care Provider Active Start: January 29, 2025 End: January 29, 2025 Yudi Méndez CLINICAL DATA ASSISTANT, CLINICAL DATA ASSISTANT-C Referring Provider Active S tart: January 29, 2025 End: January 29, 2025 Dr. Carline Escobar DO Attending Provider Activ e Start: January 29, 2025 End: January 29, 2025 Team Status: Inactive Member Role/Relationship Status Dates Yudi Méndez CLINICAL DATA ASSISTANT, CLINICAL DATA ASSISTANT-C Primary Care Provider Active Start: January 29, 2025 End: January 29, 2025 Dr. Nelly Gay MD Attending Provider Active Start: January 29, 2025 End: January 29, 2025 Dr. Nelly Gay MD Referring Provider Active Start: January 29, 2025 End: January 29, 2025 Team Status: Inactive Member Role/Relationship Status Dates Yudi Méndez CLINICAL DATA ASSISTANT, CLINICAL DATA ASSISTANT-C Primary Care Provider Active Start: February 19, 2025 End: February 19, 2025 Yudi Méndez CLINICAL DATA ASSISTANT, CLINICAL DATA ASSISTANT-C Referring Provider Active S tart: February 19, 2025 End: February 19, 2025 Manjula Goldman CNM Attending Provider Active S tart: February 19, 2025 End: February 19, 2025 Team Status: Inactive Member Role/Relationship Status Dates Yudi Méndez CLINICAL DATA ASSISTANT, CLINICAL DATA ASSISTANT-C Primary Care Provider Active Start: March 07, 2025 End: March 07, 2025 Yudi Méndez CLINICAL DATA ASSISTANT, CLINICAL DATA ASSISTANT-C Referring Provider Active S tart: March 07, 2025 End: March 07, 2025 Dr. Nelly Gay MD Attending Provider Active Start: March 07, 2025 End: March 07, 2025 Team Status: Inactive Member Role/Relationship Status Dates Yudi Méndez CLINICAL DATA ASSISTANT, CLINICAL DATA ASSISTANT-C Primary Care Provider Active Start: March 19, 2025 End: March 19, 2025 Yudi Méndez CLINICAL DATA ASSISTANT, CLINICAL DATA ASSISTANT-C Referring Provider Active S tart: March 19, 2025 End: March 19, 2025 Manjula Goldman CNM Attending Provider Active S tart: March 19, 2025 End: March 19, 2025 Team Status: Inactive Member Role/Relationship Status Dates Yudi Méndez CLINICAL DATA ASSISTANT, CLINICAL DATA ASSISTANT-C Primary Care Provider Active Start: March 23, 2025 End: March 23, 2025 Dr. Lucius Combs , DO Emergency Provider Activ e Start: March 23, 2025 End: March 23, 2025 Team Status: Inactive Member Role/Relationship Status Dates Yudi Méndez CLINICAL DATA ASSISTANT, CLINICAL DATA ASSISTANT-C Primary Care Provider Active Start: January 01, 2025 End: January 01, 2025 Yudi Méndez CLINICAL DATA ASSISTANT, CLINICAL DATA ASSISTANT-C Referring Provider Active S tart: January 01, 2025 End: January 01, 2025 Manjula Goldman CNM Attending Provider Active S tart: January 01, 2025 End: January 01, 2025 Team Status: Inactive Member Role/Relationship Status Dates Yudi Méndez CLINICAL DATA ASSISTANT, CLINICAL DATA ASSISTANT-C Primary Care Provider Active Start: January 29, 2025 End: January 29, 2025 Yudi Méndez CLINICAL DATA ASSISTANT, CLINICAL DATA ASSISTANT-C Referring Provider Active S tart: January 29, 2025 End: January 29, 2025 Dr. Carline Escobar , DO Attending Provider Activ e Start: January 29, 2025 End: January 29, 2025 Team Status: Inactive Member Role/Relationship Status Dates Yudi Méndez CLINICAL DATA ASSISTANT, CLINICAL DATA ASSISTANT-C Primary Care Provider Active Start: January 29, 2025 End: January 29, 2025 Dr. Nelly Gay MD Attending Provider Active Start: January 29, 2025 End: January 29, 2025 Dr. Nelly Gay MD Referring Provider Active Start: January 29, 2025 End: January 29, 2025 Team Status: Inactive Member Role/Relationship Status Dates Yudi Méndez CLINICAL DATA ASSISTANT, CLINICAL DATA ASSISTANT-C Primary Care Provider Active Start: February 19, 2025 End: February 19, 2025 Yudi Méndez CLINICAL DATA ASSISTANT, CLINICAL DATA ASSISTANT-C Referring Provider Active S tart: February 19, 2025 End: February 19, 2025 Manjula Goldman CNM Attending Provider Active S tart: February 19, 2025 End: February 19, 2025 Team Status: Inactive Member Role/Relationship Status Dates Yudi Méndez CLINICAL DATA ASSISTANT, CLINICAL DATA ASSISTANT-C Primary Care Provider Active Start: March 07, 2025 End: March 07, 2025 Yudi Méndez CLINICAL DATA ASSISTANT, CLINICAL DATA ASSISTANT-C Referring Provider Active S tart: March 07, 2025 End: March 07, 2025 Dr. Nelly Gay MD Attending Provider Active Start: March 07, 2025 End: March 07, 2025 Team Status: Inactive Member Role/Relationship Status Dates Yudi Méndez CLINICAL DATA ASSISTANT, CLINICAL DATA ASSISTANT-C Primary Care Provider Active Start: March 19, 2025 End: March 19, 2025 Yudi Méndez CLINICAL DATA ASSISTANT, CLINICAL DATA ASSISTANT-C Referring Provider Active S tart: March 19, 2025 End: March 19, 2025 Manjula Goldman CNM Attending Provider Active S tart: March 19, 2025 End: March 19, 2025 Team Status: Inactive Member Role/Relationship Status Dates Yudi Méndez CLINICAL DATA ASSISTANT, CLINICAL DATA ASSISTANT-C Primary Care Provider Active Start: March 23, 2025 End: March 23, 2025 Dr. Lucius Combs DO Attending Provider Activ e Start: March 23, 2025 End: March 23, 2025 Dr. Lucius Combs DO Emergency Provider Activ e Start: March 23, 2025 End: March 23, 2025 Team Status: Inactive Member Role/Relationship Status Dates Yudi Méndez CLINICAL DATA ASSISTANT, CLINICAL DATA ASSISTANT-C Primary Care Provider Active Start: March 31, 2025 End: March 31, 2025 Yudi Méndez CLINICAL DATA ASSISTANT, CLINICAL DATA ASSISTANT-C Referring Provider Active S tart: March 31, 2025 End: March 31, 2025 Tania Gutiérrez CLINICAL DATA ASSISTANT, CLINICAL DATA ASSISTANT-C Attending Provider Active Start: March 31, 2025 End: March 31, 2025 Team Status: Inactive Member Role/Relationship Status Dates Yudi Méndez CLINICAL DATA ASSISTANT, CLINICAL DATA ASSISTANT-C Primary Care Provider Active Start: April 16, 2025 End: April 16, 2025 Yudi Méndez CLINICAL DATA ASSISTANT, CLINICAL DATA ASSISTANT-C Referring Provider Active S tart: April 16, 2025 End: April 16, 2025 Dr. Carline Escobar DO Attending Provider Activ e Start: April 16, 2025 End: April 16, 2025 Team Status: Inactive Member Role/Relationship Status Dates Yudi Méndez CLINICAL DATA ASSISTANT, CLINICAL DATA ASSISTANT-C Primary Care Provider Active Start: April 16, 2025 End: April 16, 2025 Dr. Carline Escobar DO Attending Provider Activ e Start: April 16, 2025 End: April 16, 2025 Dr. Carline Escobar DO Referring Provider Activ e Start: April 16, 2025 End: April 16, 2025 Team Status: Inactive Member Role/Relationship Status Dates Yudi Méndez CLINICAL DATA ASSISTANT, CLINICAL DATA ASSISTANT-C Primary Care Provider Active Start: April 24, 2025 End: April 24, 2025 Yudi Méndez CLINICAL DATA ASSISTANT, CLINICAL DATA ASSISTANT-C Referring Provider Active S tart: April 24, 2025 End: April 24, 2025 Dr. Nelly Gay MD Attending Provider Active Start: April 24, 2025 End: April 24, 2025 Team Status: Inactive Member Role/Relationship Status Dates Yudi Méndez CLINICAL DATA ASSISTANT, CLINICAL DATA ASSISTANT-C Primary Care Provider Active Start: April 30, 2025 End: April 30, 2025 Yudi Méndez CLINICAL DATA ASSISTANT, CLINICAL DATA ASSISTANT-C Referring Provider Active S tart: April 30, 2025 End: April 30, 2025 Manjula Goldman CNM Attending Provider Active S tart: April 30, 2025 End: April 30, 2025 Team Status: Active Member Role/Relationship Status Dates Yudi Méndez CLINICAL DATA ASSISTANT, CLINICAL DATA ASSISTANT-C Primary care physician Active Team Status: Inactive Member Role/Relationship Status Dates Yudi Méndez CLINICAL DATA ASSISTANT, CLINICAL DATA ASSISTANT-C Primary care physician Active Start: January 29, 2025 End: January 29, 2025 Yudi Méndez CLINICAL DATA ASSISTANT, CLINICAL DATA ASSISTANT-C Referring Provider Active S tart: January 29, 2025 End: January 29, 2025 Dr. Carline Escobar DO Attending physician Acti ve Start: January 29, 2025 End: January 29, 2025 Team Status: Inactive Member Role/Relationship Status Dates Yudi Méndez CLINICAL DATA ASSISTANT, CLINICAL DATA ASSISTANT-C Primary care physician Active Start: January 29, 2025 End: January 29, 2025 Dr. Nelly Gay MD Attending physician Active Start: January 29, 2025 End: January 29, 2025 Dr. Nelly Gay MD Referring Provider Active Start: January 29, 2025 End: January 29, 2025 Team Status: Inactive Member Role/Relationship Status Dates Yudi Méndez CLINICAL DATA ASSISTANT, CLINICAL DATA ASSISTANT-C Primary care physician Active Start: February 19, 2025 End: February 19, 2025 Yudi Méndez CLINICAL DATA ASSISTANT, CLINICAL DATA ASSISTANT-C Referring Provider Active S tart: February 19, 2025 End: February 19, 2025 Manjula Goldman CNM Attending physician Active Start: February 19, 2025 End: February 19, 2025 Team Status: Inactive Member Role/Relationship Status Dates Yudi Méndez CLINICAL DATA ASSISTANT, CLINICAL DATA ASSISTANT-C Primary care physician Active Start: March 07, 2025 End: March 07, 2025 Yudi Méndez CLINICAL DATA ASSISTANT, CLINICAL DATA ASSISTANT-C Referring Provider Active S tart: March 07, 2025 End: March 07, 2025 Dr. Nelly Gay MD Attending physician Active Start: March 07, 2025 End: March 07, 2025 Team Status: Inactive Member Role/Relationship Status Dates Yudi Méndez CLINICAL DATA ASSISTANT, CLINICAL DATA ASSISTANT-C Primary care physician Active Start: March 19, 2025 End: March 19, 2025 Yudi Méndez CLINICAL DATA ASSISTANT, CLINICAL DATA ASSISTANT-C Referring Provider Active S tart: March 19, 2025 End: March 19, 2025 Manjula Goldman CNM Attending physician Active Start: March 19, 2025 End: March 19, 2025 Team Status: Inactive Member Role/Relationship Status Dates Yudi Méndez CLINICAL DATA ASSISTANT, CLINICAL DATA ASSISTANT-C Primary care physician Active Start: March 23, 2025 End: March 23, 2025 Dr. Lucius Combs DO Attending physician Active Start: March 23 End: March 23, 2025 Dr. Lucius Combs DO Emergency Department Physician Active Start: March 23, 2025 End: March 23, 2025 Team Status: Inactive Member Role/Relationship Status Dates Yudi Méndez CLINICAL DATA ASSISTANT, CLINICAL DATA ASSISTANT-C Primary care physician Active Start: March 31, 2025 End: March 31, 2025 Yudi Méndez CLINICAL DATA ASSISTANT, CLINICAL DATA ASSISTANT-C Referring Provider Active S tart: March 31, 2025 End: March 31, 2025 Tania Gutiérrez CLINICAL DATA ASSISTANT, CLINICAL DATA ASSISTANT-C Attending physician Active Start: March 31, 2025 End: March 31, 2025 Team Status: Inactive Member Role/Relationship Status Dates Yudi Méndez CLINICAL DATA ASSISTANT, CLINICAL DATA ASSISTANT-C Primary care physician Active Start: April 16, 2025 End: April 16, 2025 Yudi Méndez CLINICAL DATA ASSISTANT, CLINICAL DATA ASSISTANT-C Referring Provider Active S tart: April 16, 2025 End: April 16, 2025 Dr. Carline Escobar DO Attending physician Acti ve Start: April 16, 2025 End: April 16, 2025 Team Status: Inactive Member Role/Relationship Status Dates Yudi Méndez CLINICAL DATA ASSISTANT, CLINICAL DATA ASSISTANT-C Primary care physician Active Start: April 16, 2025 End: April 16, 2025 Dr. Carline Escobar DO Attending physician Acti ve Start: April 16, 2025 End: April 16, 2025 Dr. Carline Escobar DO Referring Provider Activ e Start: April 16, 2025 End: April 16, 2025 Team Status: Inactive Member Role/Relationship Status Dates Yudi Méndez CLINICAL DATA ASSISTANT, CLINICAL DATA ASSISTANT-C Primary care physician Active Start: April 24, 2025 End: April 24, 2025 Yudi Méndez CLINICAL DATA ASSISTANT, CLINICAL DATA ASSISTANT-C Referring Provider Active S tart: April 24, 2025 End: April 24, 2025 Dr. Nelly Gay MD Attending physician Active Start: April 24, 2025 End: April 24, 2025 Team Status: Inactive Member Role/Relationship Status Dates Yudi Méndez CLINICAL DATA ASSISTANT, CLINICAL DATA ASSISTANT-C Primary care physician Active Start: April 30, 2025 End: April 30, 2025 Yudi Méndez CLINICAL DATA ASSISTANT, CLINICAL DATA ASSISTANT-C Referring Provider Active S tart: April 30, 2025 End: April 30, 2025 Manjula Goldman CNM Attending physician Active Start: April 30, 2025 End: April 30, 2025 Team Status: Inactive Member Role/Relationship Status Dates Yudi Méndez CLINICAL DATA ASSISTANT, CLINICAL DATA ASSISTANT-C Primary care physician Active Start: May 07, 2025 End: May 07, 2025 Yudi Aris CLINICAL DATA ASSISTANT, CLINICAL DATA ASSISTANT-C Referring Provider Active S tart: May 07, [...] BE BASED ON THE PRIMARY CLINICAL RECORDS. [employer] provides no warranty or guarantee of the accuracy or completeness of information in this document.
--- NOTE | 2025-05-11 21:31 | OB.VAGDELI_ITS ---
Assessment & Plan (1) Vaginal delivery: COMMENT: IAL 39.4 girl (2) Active labor: (3) Positive GBS test: COMMENT: Allergic to PNC, resistant to Clinda. Will need vanc in labor (4) Screening for lead exposure: COMMENT: negative (5) Thyroid nodule: COMMENT: Patient is a 29-year-old female with incidentally noted right thyroid nodule that was first noted by her mother through casual observation. It was suspected this nodule was related to a prior viral illness but patient confirms that it was never very tender. Formal thyroid ultrasound was completed and radiology has rated this a TI-RADS 3 lesion. Patient does not appear to have any symptoms from a compressive standpoint. We discussed her thyroid ultrasound in detail using hand drawing schematic to illustrate the location as well as introduce the topic of the TI-RADS grading system. It should be noted that patient's thyroid nodule was rated a TI-RADS 3, however, it could technically be reclassified as a TI-RADS 2 given that it truly has a mixed composition (an otherwise isoechoic) with a substantial cystic component. Yet, because there could have been a consideration to describe this as mostly solid I extended the recommendation for biopsy to Mrs. Atwood after providing a descr iption of the procedure. She was readily receptive and the procedure was undertaken in uncomplicated fashion during today's visit. Complete details are given in the procedures section of today's note. (6) Thyroid cyst: (7) Supervision of normal : QUALIFIERS: Normal : other normal Trimester: third trimester Qualified Code(s): Z34.83 - Encounter for supervision of other normal , third trimester COMMENT: PRR,, PARAG 05/10/25, girl THU Pabon, Sudheer (8) : QUALIFIERS: Weeks of gestation: 39 weeks Qualified Code(s): Z3A.39 - 39 weeks gestation of COMMENT: declines NIPT & Carrier testing Maternal Data Information PARAG Calculator Estimated Delivery Date Method Current WG Current Estimate 05/14/25 Ultrasound #1 39w 4d Other Estimates 05/10/25 LMP (Certain) 40w 1d Final PARAG: 05/11/25 Final PARAG Source: US >20 weeks Gestational age: 39.4 Vaginal Delivery Maternal Presentation Maternal Presentation: Active Labor Maternal Presentation: Presented to unit for active labor Vaginal Delivery Information Procedure Performed: Spontaneous Vaginal Delivery Surgeon/Practitioner: Manjula Goldman Date of Procedure: 05/11/25 Pre-Procedure Diagnosis: see problem list Post-Procedure Diagnosis: same Type of anesthesia: Epidural Estimated Blood Loss: 100 Time of Delivery: 21:17 Findings Description of procedure: Progressed well to 10cm dilated and made steady progress with effective maternal pushing. Delivered the head in MANDA presentation. The head was delivered atraumatically and a loose nuchal cord was identified and was easily reduced over the 's head. The anterior and posterior shoulders delivered without complication followed by the rest of the and the was placed on the maternal abdomen. Delayed cord clamping was employed for approximately 3 minutes. Cord was clamped and cut and gentle traction was applied to the cord and the placenta delivered spontaneously. Immediately following, it was noted to be intact with a 3 vessel cord. Uterine bleeding stable. Pitocin started. The perineum and vagina were inspected and noted to have a right labial laceration which was repaired with 3-0 Vicryl in the usual fashion. EBL was 100cc. Patient and infant tolerated delivery well. Apgars 8/9. Dr Sommers notified of vaginal delivery and orders reviewed. Physician agrees with current plan of care. Presentation: Vertex Amniotic Membrane Rupture Type: Spontaneous Amniotic Fluid Description: Clear Placental Delivery Description: Spontaneous Placenta Disposition: [facility] Specimen collected: No Cord Vessel Description: 3 Vessels Cord Entanglement: Around neck x 1, loose Infant A Gender: Female (1 minute): 8 (5 minute): 9 Delayed Cord Clamping: Yes Manager Infusion vacation planner: No Post Vaginal Deli Medications given after delivery: IV Pitocin and IM Pitocin Episiotomy Description: None Laceration: 1st degree (right labial laceration) Complication Complications: No Multi Select Codes Urinary/Genital Urinary/Genital CPT Codes: 51328 Vaginal Delivery [facility]
--- NOTE | 2025-05-11 21:34 | DCINST_ITS ---
Discharge Instructions DC O2, CPAP, BIPAP needs Home O2 Discharge instructions: No Dressing / Incision Discharge Activity: Return to Normal Activity May resume sexual activity in: 6-8 weeks Dressing / Incision Call your doctor if you observe: Fever of 101 or Higher, Coldness, Increased Pain, Numbness or Tingling, Change in Color, Inability to urinate, Inability to have a bowel movement, Using more than 1 pad per hour, Shortness of breath, Dizziness, Fainting spells, Swelling in the ankles, Chest pain, Increased palpitations (irregular heartbeat), Calf discomfort and Uncontrolled pain Follow Up Care Please Follow Up With: Manjula Goldman CNM When: Please call the office to schedule your follow up appointment in 6 weeks. If you had high blood pressure please call to schedule an appointment in 2 weeks. Test Results: Test results from this visit will be discussed in further detail at your follow- up appointment, if applicable. Discharge Plan Admission Admit Date/Time: 05/11/25 19:40 Attending Provider: Manjula Goldman Primary Care Provider: Jennifer Hurst NP Discharge Orders/Prescriptions Prescriptions: No Action mv-mn [id number] 180 mcg-35 mg- 25 mg-5 mg tablet,chewable 1 tab PO DAILY ondansetron HCl 4 mg tablet 4 mg PO Q6-8H PRN (Reason: nausea and vomiting) Qty: 30 4RF Referrals / Follow Up: Jennifer Hurst NP, CUSTOMER SERVICE DRIVER-C [Primary Care Provider, [facility]]
[2025-05-11] MEDS: Oxytocin 15 Units/NS 250ml 15 UNITS/250 ML IV.SOLN 83 UNITS IV (21:35)
--- NOTE | 2025-05-11 22:00 | PCM.RX.CS ---
Consult Antibiotic Management Pharmacy has been consulted to manage selected antibiotic: Vancomycin Type of Intervention Type of Consult: New start Dosing Weight Weight used for dosin.6 kg Goal Trough Goal Trough: 10-15 mcg/mL Pharmacy Plan for Drug Dosing Pharmacy Plan for Drug Dosing: Pharmacy Service will continue to monitor and adjust dosing as required. WP-GBS 1750MG Q8H AND DRAW TROUGH PRIOR TO 4TH DOSE Follow-Up Labs Follow-Up Labs: Trough: Vancomycin Date/Time Labs Ordered Labs to be done on [date and time ordered]: 05/12 @ 1999
[2025-05-12 04:57] VITALS: BP 108/63; PULSE 75; RESP 16; TEMP 36.2; O2SAT 98
[2025-05-12 08:17] VITALS: BP 115/73; PULSE 70; RESP 15; TEMP 36.3
[2025-05-12 11:30] VITALS: BP 137/77; PULSE 75; RESP 16; TEMP 36.3
--- NOTE | 2025-05-12 15:00 | PCM.PN.OB ---
Subjective Subjective Patient doing well without complaints. Tolerating PO. Ambulating and voiding without difficulty. feeding well. Denies chest pain, shortness of breath, calf pain/swelling, fevers, chills, lightheadedness. Objective Data Objective Data Vital Signs: Vital Signs Temp Pulse Resp BP Pulse Ox O2 Del Method 97.4 F L 75 16 137/77 H 98 Room Air 05/12/25 11:30 05/12/25 11:30 05/12/25 11:30 05/12/25 11:30 05/12/25 04:57 05/12/25 11:30 Oxygen Delivery Method Room Air Weight: 191 lb Body Mass Index (BMI) 29.9 Intake & Output: Intake and Output for Last 24 Hours 05/10/25 05/11/25 05/12/25 23:59 23:59 23:59 Intake Total 1535 / 1535 250 / 250 Output Total 100 / 100 800 / 800 Balance 1435 / 1435 -550 / -550 Lab / Micro Data 05/11/25 19:45 Labs: Laboratory Results - last 24 hr 05/11/25 19:45: WBC 12.1 H, RBC 3.51 L, Hgb 10.8 L, Hct 32.2 L, MCV 91.7, MCH 30.8, MCHC 33.5, RDW Std Deviation 48.5 H, RDW Coeff of Terrell 15.1 H, Plt Count 336, MPV 10.0, Immature Gran % (Auto) 0.900, Neut % (Auto) 69.6, Lymph % (Auto) 18.0 L, [place] % (Auto) 10.5 H, Eos % (Auto) 0.7, Baso % (Auto) 0.3, Absolute Neuts (auto) 8.4 H, Absolute Lymphs (auto) 2.19, Nucleated RBC % 0, Syphilis Total Ab Nonreactive, Blood Type O POSITIVE, Antibody Screen NEGATIVE ROS Constitutional Constitutional: Reports systems reviewed and no addt'l complaints, except as documented Cardiovascular Cardiovascular: Reports systems reviewed and no addt'l complaints, except as documented Respiratory/Chest Respiratory/Chest: Reports systems reviewed and no addt'l complaints, except as documented Gastrointestinal Gastrointestinal: Reports systems reviewed and no addt'l complaints, except as documented Physical Exam Const alert, oriented x3 and no apparent distress HEENT Head and Scalp: atraumatic Resp normal respiratory effort GI soft to palpation and non-tender Bimanual Exam - Vag & Uterus: uterus non-tender Uterus Palpation: uterus fundus firm (below Umbilicus) Assessment & Plan (1) Vaginal delivery: COMMENT: IAL 39.4 girl PLAN: Plan s/p PPD # 1 1. routine post delivery care 2. breast feeding- support given 3. rh positive 4. rubella immune
[2025-05-12 16:13] VITALS: BP 99/64; PULSE 79; TEMP 36.9
[2025-05-12 19:50] VITALS: BP 105/71; PULSE 75; RESP 17; TEMP 36.6; O2SAT 97
[2025-05-13 02:00] VITALS: BP 105/69; PULSE 76; RESP 17; TEMP 36.5; O2SAT 98
[2025-05-13 07:33] VITALS: BP 107/74; PULSE 76; RESP 16; TEMP 36.2; O2SAT 98
--- NOTE | 2025-05-13 08:01 | PCM.PN.OB ---
Subjective Subjective Patient doing well without complaints. Tolerating PO. Ambulating and voiding without difficulty. Feeding well. Denies chest pain, shortness of breath, calf pain/swelling, fevers, chills, lightheadedness. Objective Data Objective Data Vital Signs: Vital Signs Temp Pulse Resp BP Pulse Ox O2 Del Method 97.2 F L 76 16 107/74 98 Room Air 05/13/25 07:33 05/13/25 07:33 05/13/25 07:33 05/13/25 07:33 05/13/25 07:33 05/13/25 07:33 Oxygen Delivery Method Room Air Weight: 191 lb Body Mass Index (BMI) 29.9 Intake & Output: Intake and Output for Last 24 Hours 05/11/25 05/12/25 05/13/25 23:59 23:59 23:59 Intake Total 1535 / 1535 250 / 250 Output Total 100 / 100 800 / 800 Balance 1435 / 1435 -550 / -550 Lab / Micro Data Attestation: I reviewed the patient's lab results. 05/11/25 19:45 Labs: Laboratory Results - last 24 hr 05/11/25 19:45: Blood Type O POSITIVE, Antibody Screen NEGATIVE ROS Constitutional Constitutional: Reports systems reviewed and no addt'l complaints, except as documented; Denies anorexia or headache(s) Cardiovascular Cardiovascular: Reports systems reviewed and no addt'l complaints, except as documented; Denies dizziness, dyspnea, nausea or tachypnea Respiratory/Chest Respiratory/Chest: Reports systems reviewed and no addt'l complaints, except as documented; Denies cough, dyspnea, shortness of breath at rest or tachypnea Gastrointestinal Gastrointestinal: Reports systems reviewed and no addt'l complaints, except as documented; Denies abdominal pain, constipation or nausea Genitourinary Genitourinary: Reports systems reviewed and no addt'l complaints, except as documented; Denies burning urination, difficulty urinating, dysuria, urinary frequency or urinary incontinence Musculoskeletal Musculoskeletal: Reports systems reviewed and no addt'l complaints, except as documented Integumentary Integumentary: Reports systems reviewed and no addt'l complaints, except as documented Neurologic Neurologic: Reports systems reviewed and no addt'l complaints, except as documented; Denies abnormal speech, dizziness or headache(s) Psychiatric Psychiatric: Reports systems reviewed and no addt'l complaints, except as documented Endocrine Endocrinology: Reports systems reviewed and no addt'l complaints, except as documented Hematologic/Lymphatic Hematologic/Lymphatic: Reports systems reviewed and no addt'l complaints, except as documented Physical Exam Const alert, oriented x3 and no apparent distress Neck full ROM Resp normal respiratory effort, normal air movement and no retractions Effort and Inspection: able to speak in complete sentences and symmetric chest movement GI soft to palpation Bladder / Kidney Exam: bladder normal to palpation Uterus Palpation: uterus fundus firm Extremity normal to inspection and full ROM Psych mental status grossly normal, thought process normal and cooperative Assessment & Plan (1) Vaginal delivery: COMMENT: IAL 39.4 girl PLAN: s/p PPD # 2 1. routine post delivery care 2. breast feeding- support given 3. rh positive 4. rubella immune 5. Discharge home (2) Active labor: (3) Positive GBS test: COMMENT: Allergic to PNC, resistant to Clinda. Will need vanc in labor (4) Screening for lead exposure: COMMENT: negative (5) Thyroid nodule: COMMENT: Patient is a 29-year-old female with incidentally noted right thyroid nodule that was first noted by her mother through casual observation. It was suspected this nodule was related to a prior viral illness but patient confirms that it was never very tender. Formal thyroid ultrasound was completed and radiology has rated this a TI-RADS 3 lesion. Patient does not appear to have any symptoms from a compressive standpoint. We discussed her thyroid ultrasound in detail using hand drawing schematic to illustrate the location as well as introduce the topic of the TI-RADS grading system. It should be noted that patient's thyroid nodule was rated a TI-RADS 3, however, it could technically be reclassified as a TI-RADS 2 given that it truly has a mixed composition (an otherwise isoechoic) with a substantial cystic component. Yet, because there could have been a consideration to describe this as mostly solid I extended the recommendation for biopsy to Mrs. Atwood after providing a description of the procedure. She was readily receptive and the procedure was undertaken in uncomplicated fashion during today's visit. Complete details are given in the procedures section of today's note. (6) Thyroid cyst: (7) Supervision of normal : QUALIFIERS: Normal : other normal Trimester: third trimester Qualified Code(s): Z34.83 - Encounter for supervision of other normal , third trimester COMMENT: PRR,, PARAG 05/10/25, girl PC Pabon, Sudheer (8) : QUALIFIERS: Weeks of gestation: 39 weeks Qualified Code(s): Z3A.39 - 39 weeks gestation of COMMENT: declines NIPT & Carrier testing Charges/Coding Multi Select Codes Urinary/Genital Urinary/Genital CPT Codes: No Charge
[2025-05-13 11:12] VITALS: RESP 16
--- NOTE | 2025-05-19 13:26 | NURSING ---
Follow up phone call made, states she is doing very well and denies any pain. States that her bleeding is minimal and denies any headaches, visual disturbances, or Baby Blues. States that Nathaly is nursing well every 2-3 hours and having good output. Denies any questions or concerns at this time.
== END 2025-05-13 11:45 | disposition home or self-care (01) | DRG 806 ==
LOC: WPOUT 19:42 → WP 19:43 → WPOUT 21:05 → WP 21:05
PROVIDERS: Admitting Provider Advanced Practice Midwife; PCP Nurse Practitioner Family; Visit Provider Advanced Practice Midwife
DX: O70.0 First degree perineal laceration during delivery (principal); Z37.0 Single live birth; O98.82 Other maternal infectious and parasitic diseases complicating childbirth; E04.1 Nontoxic single thyroid nodule; O99.284 Endocrine, nutritional and metabolic diseases complicating childbirth; Z3A.39 39 weeks gestation of pregnancy; B95.1 Streptococcus, group B, as the cause of diseases classified elsewhere; Z13.88 Encounter for screening for disorder due to exposure to contaminants; O69.81X0 Labor and delivery complicated by cord around neck, without compression, not applicable or unspecified
CPT/HCPCS: 59050; 85025; 86780; 86850; 86900; 86901